=== PATIENT | male | born 1950 | race Caucasian/White ===

== ENCOUNTER 2021-07-31 16:36 | Inpatient (IN) ==
[2021-07-31] MEDS ORDERED: SODIUM CHLORIDE 0.9% 1000ML 1,000 ML IV SCH ×2 (18:30→20:15)
[2021-07-31 18:34] LABS: Hematocrit (blood only) 32.5 % (42-52); Hemoglobin 9.5 g/dL (14.0-18.0); Mean Corpuscular Hemoglobin 26.2 pg (25-34); Mean Corpuscular Hgb Conc 29.2 g/dL (32-36); Mean Corpuscular Volume 89.8 fL (80-100); Mean Platelet Volume 10.6 fL (7.4-10.4); Platelet Count 373 K/uL (130-400); RDW Coefficient of Variation 16.4 % (11.5-14.5); RDW Standard Deviation 54.8 fL (36.4-46.3); Red Blood Count 3.62 M/uL (4.7-6.1); White Blood Count 18.81 K/uL (4.8-10.8)
[2021-07-31 18:41] LABS: Alanine Aminotransferase 9 U/L (12-78); Albumin Level 1.8 gm/dl (3.4-5.0); Aspartate Aminotransferase 13 U/L (15-37); BUN Creatinine Ratio 17.4 (10-20); Blood Urea Nitrogen 15 mg/dl (7-18); Calcium 9.3 mg/dl (8.5-10.1); Carbon Dioxide 33 mmol/L (21-32); Chloride 100 mmol/L (98-107); Est GFR (Non-African American) 88.9 ml/min; Glucose 172 mg/dl (70-99); Magnesium 2.4 mg/dl (1.8-2.4); Sodium 136 mmol/L (136-145)
[2021-07-31] MEDS ORDERED: VANCOMYCIN CONSULT ACTIVE PRN (18:42)
[2021-07-31] MEDS ORDERED: VANCOMYCIN HCL 2,750 MG in SODIUM CHLORIDE 0.9% 500 ML IV ONE (18:42)
[2021-07-31 18:44] LABS: INR 1.2 (0.9-1.1); Partial Thromboplastin Ratio 1.3; Partial Thromboplastin Time 34.3 Seconds (21.0-31.0); Prothrombin Time 11.7 Seconds (9.0-12.0)
[2021-07-31 18:46] LABS: Albumin Globulin Ratio 0.3 (0.9-2); Alkaline Phosphatase 92 U/L (45-117); Bilirubin,Total 0.2 mg/dl (0.2-1); Globulin 5.4 gm/dl (2.5-4.0); Total Protein 7.2 gm/dl (6.4-8.2); Troponin I < 0.015 ng/ml (0-0.045)
[2021-07-31 18:52] LABS: iSTAT Creatinine 0.9 mg/dl (0.6-1.3); iSTAT Hemoglobin 10.9 g/dl (14.0-18.0); iSTAT Ionized Calcium 1.28 mmol/l (1.12-1.32); iSTAT Potassium 4.1 mmol/L (3.3-5.0)
[2021-07-31 18:54] LABS: Basophils # (auto) 0.01 K/uL (0-0.2); Basophils % (auto) 0.1 %; Eosinophils # (auto) 0.06 K/uL (0-0.5); Eosinophils % (auto) 0.3 %; Immature Granulocytes % (auto) 0.5 %; Lymphocytes # (auto) 0.97 K/uL (1.2-3.4); Lymphocytes % (auto) 5.2 %; Monocytes # (auto) 1.08 K/uL (0.11-0.59); Monocytes % (auto) 5.7 %; Neutrophils # (auto) 16.59 K/uL (1.4-6.5); Neutrophils % (auto) 88.2 %
[2021-07-31] MEDS ORDERED: OPTIRAY 320 125ml IV ONE (19:28)
--- NOTE | 2021-07-31 19:49 | CT Scan Report ---
CT SCAN OF THE ABDOMEN AND PELVIS WITH IV CONTRAST CLINICAL HISTORY: Right back/flank pain. Cellulitis/infection. Clinical concern for abscess or fasc iitis. COMPARISON STUDY: No priors. TECHNIQUE: Following the IV administration of 118 cc of Optiray 320, CT scan of the abdomen and pelv is is performed from the lung bases to the proximal femora. Images are reviewed in the axial, sagitta l, and coronal planes. IV contrast was administered without complication. A dose lowering technique w as utilized adhering to the principles of ALARA. The examination is degraded by large body habitus, a nd by streak artifact from the body wall abutting the CT gantry. There is also motion artifact. CT DOSE: 1874.37 mGy.cm FINDINGS: Lung bases: The heart is top normal in size noting a small to moderate pericardial effusion. The carmen nary arteries are densely calcified. There are small pleural effusions with dense bibasilar consolida tion. A tiny hiatal hernia is noted. Liver: The contrast-enhanced liver is normal in size, contour, and attenuation. There is no intrahepa tic biliary ductal dilatation. The hepatic veins and portal veins are patent. Gallbladder: The gallbladder is distended but otherwise normal as imaged. Spleen: Normal in size and attenuation. Pancreas: The pancreas is moderately atrophic. There is mild nonspecific infiltration around the panc reatic tail. The gland enhances homogeneously. Adrenal glands: Unremarkable. Kidneys: The contrast enhanced kidneys are normal in size there is moderate to severe right-sided hyd ronephrosis. The right ureter is normal in caliber, with no obstructing stone or lesion identified. T here are numerous clusters of nonobstructing right renal calculi. The largest measures 1.5 cm. Nonobs tructing calculi are also seen in the left kidney. There is no left-sided hydronephrosis. The kidneys enhance symmetrically. There are least 2 cysts in the lower pole of left kidney measuring up to 3 cm . Foci of cortical scarring are noted in the left kidney. Abdominal vasculature: The abdominal aorta is normal in course and caliber noting moderate atheroscle rotic calcification. Bowel: There is mild colonic diverticulosis without CT evidence of acute diverticulitis. No bowel obs truction is seen. Mild fecal retention is noted throughout the colon. The appendix is well-visualize d and normal. Peritoneum: There is no intraperitoneal free air or abdominal ascites. There is a large fat-containin g umbilical hernia. Lymphadenopathy: None. Pelvic viscera: The prostate gland is diminutive and heterogeneous. The bladder wall appears thickene d and trabeculated suggesting chronic outlet obstruction. There are bilateral fat-containing inguinal hernias. Skeletal structures: The skeletal structures are osteopenic. Mild to moderate lumbosacral spondylosis is observed. No lytic or blastic lesions are seen. Soft tissues: There is significant infiltration of the subcutaneous soft tissues in the right lower b ack seen from T9-T10 through L1. There is a large gas and fluid containing collection just deep to th e dermal surface at this site which measures approximately 10 x 3 x 10 cm as seen on image #100. This is centered at the level of T11-T12. There is no intraperitoneal or paraspinous extension of this co llection. There is infiltration of the surrounding soft tissues consistent with cellulitis. No soft t issue gas is seen outside of the collection. There is generalized fatty atrophy of the regional muscu lature. Gynecomastia is noted. IMPRESSION: 1. Streak and motion compromised examination 2. There is an approximately 10 x 3 x 10 cm gas and fluid containing collection just deep to the derm al surface within the subcutaneous soft tissues of the right lower back as detailed above. This is ty pical for abscess and there is evidence of surrounding cellulitis. 3. There is no soft tissue gas identified outside of the collection. 4. There are small pleural effusions with dependent consolidation. This likely represents atelectasis . Correlate clinically for evidence of superimposed pneumonia. 5. There is moderate to severe right-sided hydronephrosis. No stone or obstructing lesion is identifi ed and this may represent a UPJ type obstruction. Correlate with clinical findings and any prior outs nora imaging studies. 6. Bilateral nephrolithiasis. 7. There is mild nonspecific infiltration identified around the pancreatic tail. Correlate with clini doretha findings and serum amylase/lipase levels for evidence of acute pancreatitis. 8. Additional findings as above. ACT 112: Negative or not required by law. Electronically signed by: Flaco Batres M.D. 07/31/2021 7:48 PM
--- NOTE | 2021-07-31 19:58 | XRay Report ---
SINGLE VIEW CHEST CLINICAL HISTORY: Sepsis. Abscess of the lower back. FINDINGS: 2 AP, portable, semierect chest radiographs are obtained. No prior studies are available fo r comparison at the time of dictation. The examination is degraded by portable technique, apical lord otic positioning, and patient rotation the heart is enlarged noting atherosclerotic calcification of the thoracic aorta. The pulmonary vasculature is noncongested. There are small pleural effusions with bibasilar consolidation. No pneumothorax is seen. The skeletal structures are osteopenic. The bony t horax is grossly intact. IMPRESSION: 1. Cardiomegaly without radiographic evidence of congestive failure. 2. Small pleural effusions with bibasilar consolidation. This likely represents atelectasis and clini doretha correlation will be required. ACT 112: Negative or not required by law. Electronically signed by: Flaco Batres M.D. 07/31/2021 7:57 PM
[2021-07-31 20:54] LABS: Appearance Urine Cloudy (Clear); Bacteria Urine Automated Negative (Negative); Bilirubin Urine Negative (Negative); Blood Urine Trace (Negative); Color Urine Yellow; Epithelial Cell Urine Auto >30 /lpf (0-5); Glucose Urine UA Negative (Negative); Ketones Urine Negative (Negative); Leukocyte Esterase Urine Negative (Negative); Nitrite Urine Negative (Negative); Protein Urine Negative (Negative); Specific Gravity Urine > 1.045 (1.000-1.030); Urobilinogen Urine Negative (Negative)
--- NOTE | 2021-07-31 21:01 | Emergency Department Note ---
History of Present Illness General Chief complaint: Skin Problem Time Seen by Provider: 07/31/21 18:12 Source: RN notes reviewed Limitations: altered mental status (Patient has dementia) History of Present Illness Provider Complaint: + abscess/boil Onset (ago): 3 day(s) Location: + back Severity: moderate Maximum Pain Intensity: 7 Home Medications Medication Instructions Recorded Confirmed Type Lactobacillus Probiotic 1 tab PO QAM 07/31/21 07/31/21 History acetaminophen 325 mg tablet 650 mg PO Q4 PRN MDD 3g 07/31/21 07/31/21 History acetazolamide 500 mg 500 mg PO DAILY 07/31/21 07/31/21 History capsule,extended release albuterol sulfate 90 mcg/actuation 1 puff INHALATION Q4 PRN 07/31/21 07/31/21 History aerosol inhaler aspirin 81 mg chewable tablet 81 mg PO DAILY 07/31/21 07/31/21 History atorvastatin 40 mg tablet 40 mg PO HS 07/31/21 07/31/21 History cholecalciferol (vitamin D3) 25 25 mcg PO DAILY 07/31/21 07/31/21 History mcg (1,000 unit) tablet divalproex 250 mg tablet,delayed 250 mg PO BID 07/31/21 07/31/21 History release donepezil 5 mg tablet (Aricept) 5 mg PO DAILY 07/31/21 07/31/21 History guaifenesin 600 mg tablet, 600 mg PO Q12H 07/31/21 07/31/21 History extended release 12 hr insulin glargine 100 unit/mL (3 35 unit SUBCUT HS 07/31/21 07/31/21 History mL) subcutaneous pen (Lantus Solostar U-100 Insulin) insulin regular human 100 unit/mL 1 sliding scale dose SUBCUT ACHS 07/31/21 07/31/21 History injection solution (Humulin R Regular U-100 Insulin) ipratropium 18 mcg-albuterol 103 1 spray INHALATION QID 07/31/21 07/31/21 History mcg/actuation aerosol inhaler metoprolol tartrate 25 mg tablet 12.5 mg PO BID 07/31/21 07/31/21 History pediatric multivitamin 1 tab PO DAILY 07/31/21 07/31/21 History potassium chloride 20 mEq 20 meq PO WM 07/31/21 07/31/21 History tablet,extended release quetiapine 50 mg tablet (Seroquel) 50 mg PO HS 07/31/21 07/31/21 History sertraline 100 mg tablet 100 mg PO DAILY 07/31/21 07/31/21 History sulfamethoxazole 800 1 tab PO Q12H 07/31/21 07/31/21 History mg-trimethoprim 160 mg tablet (Bactrim DS) terazosin 2 mg capsule 2 mg PO DAILY 07/31/21 07/31/21 History theophylline 600 mg 600 mg PO DAILY 07/31/21 07/31/21 History tablet,extended release 24 hr Allergies Allergy/AdvReac Type Severity Reaction Status Date / Time ketorolac [From Toradol] Allergy Unknown Unknown Verified 07/31/21 17:53 Past Med/Surg History Medical History (Updated 07/31/21 @ 21:21 by Car Mitchell) Dementia Diabetes HLD (hyperlipidemia) HTN (hypertension) No pertinent family history Obstructive lung disease Surgical History (Updated 07/31/21 @ 21:00 by Car Mitchell) No pertinent past surgical history Social History Smoking Status: Former smoker Preferred Language: Micronesian Feels Safe at Home: Yes Review of Systems Unobtainable due to cognitive status (Due to dementia) Physical Exam Vital Signs: Vital Signs - 24 hr 07/31/21 16:24 07/31/21 16:56 07/31/21 17:00 Temperature 37.5 C Temperature Source Oral Pulse Rate 124 H 125 H 125 H Pulse Rate from Sp O2 Sensor 135 H 126 H Pulse Rhythm Regular Pulse Strength Normal Respiratory Rate 18 31 H 29 H Respiratory Effort / Characteristics Non-Labored Sponta neous Respiratory Depth Normal Respiratory Patter n Regular Blood Pressure 120/85 139/83 144/81 H Blood Pressure Margot n 96 101 102 Blood Pressure Pos ition Lying Pulse Oximetry 97 95 96 Oxygen Delivery Me thod Nasal Cannula Oxygen Flow Rate 4 Sepsis Recent Feve r Within 48 Hours Yes Sepsis New/Unexpla ined Change in Men ruben Status No Sepsis Action Take n by Nursing No Action Required 07/31/21 17:30 07/31/21 18:30 07/31/21 19:01 Temperature Temperature Source Pulse Rate 129 H 134 H 139 H Pulse Rate from Sp O2 Sensor 129 H 136 H 139 H Pulse Rhythm Pulse Strength Respiratory Rate 21 21 17 Respiratory Effort / Characteristics Respiratory Depth Respiratory Patter n Blood Pressure 109/76 113/95 139/86 Blood Pressure Margot n 87 101 103 Blood Pressure Pos ition Pulse Oximetry 98 96 96 Oxygen Delivery Me thod Oxygen Flow Rate Sepsis Recent Feve r Within 48 Hours Sepsis New/Unexpla ined Change in Men ruben Status Sepsis Action Take n by Nursing 07/31/21 20:04 07/31/21 20:30 Temperature Temperature Source Pulse Rate 147 H 145 H Pulse Rate from Sp O2 Sensor 149 H Pulse Rhythm Pulse Strength Respiratory Rate 18 20 Respiratory Effort / Characteristics Respiratory Depth Respiratory Patter n Blood Pressure 169/83 H 144/109 H Blood Pressure Margot n 111 120 Blood Pressure Pos ition Pulse Oximetry 92 98 Oxygen Delivery Me thod Nasal Cannula Nasal Cannula Oxygen Flow Rate 2 3 Sepsis Recent Feve r Within 48 Hours Sepsis New/Unexpla ined Change in Men ruben Status Sepsis Action Take n by Nursing Physical Exam: Physical Exam HENT: Exam performed. - Head: Normocephalic and atraumatic. - Right Ear: External ear normal. No mastoid tenderness. - Left Ear: External ear normal. No mastoid tenderness. - Mouth/Throat: The oropharynx is clear and moist. No trismus in the jaw. No dental abscesses or uvula swelling. No oropharyngeal exudate or tonsillar a bscesses. EYES: Conjunctivae and EOM are normal. Pupils are equal, round, and reactive to light. Right eye exhibits no discharge. Left eye exhibits no discharge. No scleral icterus. NECK: Normal range of motion. Neck supple. No JVD present. CV: Tachycardic rate, regular rhythm, normal heart sounds and intact distal pulses. There is no peripheral edema. Palpable radial pulses bue. PULM/CHEST: Effort normal and breath sounds normal. No respiratory distress. No stridor. He has no wheezes. He has no rales. - Chest Wall: He exhibits no tenderness. ABD: The abdomen is soft and obese NEURO: Motor and sensation grossly intact. SKIN: Large approximately 8 x 8 cm fluctuant area over the right thoracolumbar area with surrounding erythema and drainage. drainage is purulent and brown. There is a black area of necrosis over the skin. Course Course 1811: The patient was evaluated in room B12. A complete history and physical exam was performed Cardiac monitoring: An order was placed for continuous cardiac monitoring. The monitor shows a rate of 140 with sinus tachycardia rhythm Sepsis protocols initiated. [facility] paperwork states that the patient is full code. There is concern for necrotizing fasciitis given the black area of necrosis. Will obtain CT imaging. Discussed with radiology Dr. Salas who states order CT of the abdomen to see the lesion on the back if there is soft tissue gas. 2010: Labs show leukocytosis of 18. CT imaging shows large abscess with no surrounding soft tissue gas. Patient will be treated with vancomycin for abscess. Abscess is actively draining. Discussed case with [facility] hospitalist Eric SAMPSON for Dr. Montes who agrees to admit the patient. Administered Medications Vancomycin HCl 2,750 mg/ (Sodium Chloride) 555 mls @ 200 mls/hr IV NOW ONE Stop: 07/31/21 21:28 Last Admin: 07/31/21 20:08 Dose: 200 mls/hr Documented by: [id number] Discontinued Medications Sodium Chloride (Nss 1000ml) 1,000 mls @ 999 mls/hr IV .[id number] JENNIFER Stop: 07/31/21 19:30 Last Admin: 07/31/21 20:06 Dose: 999 mls/hr Documented by: [id number] Ioversol (Optiray 320 125ml) 118 ml IV ONCE ONE Stop: 07/31/21 19:29 Last Admin: 07/31/21 19:28 Dose: 118 ml Documented by: [id number] Medical Decision Making Laboratory Data Result diagrams: 07/31/21 16:56 07/31/21 16:56 Lab Results 07/31/21 07/31/21 07/31/21 Range/Units 16:56 16:56 16:56 WBC 18.81 H (4.8-10.8) K/uL RBC 3.62 L (4.7-6.1) M/uL Hgb 9.5 L (14.0-18.0) g/dL POC Hgb (14.0-18.0) g/dl Hct 32.5 L (42-52) % POC Hct (42-52) % MCV 89.8 (80-100) fL MCH 26.2 (25-34) pg MCHC 29.2 L (32-36) g/dL RDW Std Deviation 54.8 H (36.4-46.3) fL RDW Coeff of Raquel 16.4 H (11.5-14.5) % Plt Count 373 (130-400) K/uL MPV 10.6 H (7.4-10.4) fL Immature Gran % (Auto) 0.5 % Neut % (Auto) 88.2 % Lymph % (Auto) 5.2 % Archer % (Auto) 5.7 % Eos % (Auto) 0.3 % Baso % (Auto) 0.1 % Neut # (Auto) 16.59 H (1.4-6.5) K/uL Lymph # (Auto) 0.97 L (1.2-3.4) K/uL Archer # (Auto) 1.08 H (0.11-0.59) K/uL Eos # (Auto) 0.06 (0-0.5) K/uL Baso # (Auto) 0.01 (0-0.2) K/uL Immature Gran # (Auto) 0.10 H (0.00-0.02) K/uL PT 11.7 (9.0-12.0) Seconds INR 1.2 H (0.9-1.1) APTT 34.3 H (21.0-31.0) Seconds PTT Ratio 1.3 POC Sodium (135-144) mmol/L Sodium 136 (136-145) mmol/L POC Potassium (3.3-5.0) mmol/L Potassium 4.0 (3.5-5.1) mmol/L POC Chloride (101-112) mmol/L Chloride 100 (98-107) mmol/L Carbon Dioxide 33 H (21-32) mmol/L POC Total CO2 (24-31) mmol/L Anion Gap 3.0 (3-11) POC Anion Gap (16-25) mmol/L POC BUN (7-18) mg/dl BUN 15 (7-18) mg/dl Creatinine 0.85 (0.6-1.4) mg/dl POC Creatinine (0.6-1.3) mg/dl Est Cr Clr Drug Dosing 121.0 ml/min Est GFR ( Amer) 103.0 ml/min Est GFR (Non-Af Amer) 88.9 ml/min BUN/Creatinine Ratio 17.4 (10-20) Glucose 172 H (70-99) mg/dl POC Glucose (70-99) mg/dl POC Glucose (other) (70-99) mg/dl Lactate (0.4-2.0) mmol/L Calcium 9.3 (8.5-10.1) mg/dl POC Ioniz Calcium Gurjit (1.12-1.32) mmol/l Magnesium 2.4 (1.8-2.4) mg/dl Total Bilirubin 0.2 (0.2-1) mg/dl AST 13 L (15-37) U/L ALT 9 L (12-78) U/L Alkaline Phosphatase 92 (45-117) U/L Troponin I < 0.015 (0-0.045) ng/ml Total Protein 7.2 (6.4-8.2) gm/dl Albumin 1.8 L (3.4-5.0) gm/dl Globulin 5.4 H (2.5-4.0) gm/dl Albumin/Globulin Ratio 0.3 L (0.9-2) Procalcitonin (0-0.5) ng/ml Urine Color Urine Appearance (Clear) Urine pH (4.5-7.5) Ur Specific [place] (1.000-1.030) Urine Protein (Negative) Urine Glucose (UA) (Negative) Urine Ketones (Negative) Urine Blood (Negative) Urine Nitrite (Negative) Urine Bilirubin (Negative) Urine Urobilinogen (Negative) Ur Leukocyte Esterase (Negative) 07/31/21 07/31/21 07/31/21 Range/Units 16:56 18:26 18:39 WBC (4.8-10.8) K/uL RBC (4.7-6.1) M/uL Hgb (14.0-18.0) g/dL POC Hgb 10.9 L (14.0-18.0) g/dl Hct (42-52) % POC Hct 32 L (42-52) % MCV (80-100) fL MCH (25-34) pg MCHC (32-36) g/dL RDW Std Deviation (36.4-46.3) fL RDW Coeff of Raquel (11.5-14.5) % Plt Count (130-400) K/uL MPV (7.4-10.4) fL Immature Gran % (Auto) % Neut % (Auto) % Lymph % (Auto) % Archer % (Auto) % Eos % (Auto) % Baso % (Auto) % Neut # (Auto) (1.4-6.5) K/uL Lymph # (Auto) (1.2-3.4) K/uL Archer # (Auto) (0.11-0.59) K/uL Eos # (Auto) (0-0.5) K/uL Baso # (Auto) (0-0.2) K/uL Immature Gran # (Auto) (0.00-0.02) K/uL PT (9.0-12.0) Seconds INR (0.9-1.1) APTT (21.0-31.0) Seconds PTT Ratio POC Sodium 137 (135-144) mmol/L Sodium (136-145) mmol/L POC Potassium 4.1 (3.3-5.0) mmol/L Potassium (3.5-5.1) mmol/L POC Chloride 95 L (101-112) mmol/L Chloride (98-107) mmol/L Carbon Dioxide (21-32) mmol/L POC Total CO2 31 (24-31) mmol/L Anion Gap (3-11) POC Anion Gap 16.0 (16-25) mmol/L POC BUN 13 (7-18) mg/dl BUN (7-18) mg/dl Creatinine (0.6-1.4) mg/dl POC Creatinine 0.9 (0.6-1.3) mg/dl Est Cr Clr Drug Dosing ml/min Est GFR ( Amer) ml/min Est GFR (Non-Af Amer) ml/min BUN/Creatinine Ratio (10-20) Glucose (70-99) mg/dl POC Glucose 185 H (70-99) mg/dl POC Glucose (other) 182 H (70-99) mg/dl Lactate (0.4-2.0) mmol/L Calcium (8.5-10.1) mg/dl POC Ioniz Calcium Gurjit 1.28 (1.12-1.32) mmol/l Magnesium (1.8-2.4) mg/dl Total Bilirubin (0.2-1) mg/dl AST (15-37) U/L ALT (12-78) U/L Alkaline Phosphatase (45-117) U/L Troponin I (0-0.045) ng/ml Total Protein (6.4-8.2) gm/dl Albumin (3.4-5.0) gm/dl Globulin (2.5-4.0) gm/dl Albumin/Globulin Ratio (0.9-2) Procalcitonin 0.40 (0-0.5) ng/ml Urine Color Urine Appearance (Clear) Urine pH (4.5-7.5) Ur Specific [place] (1.000-1.030) Urine Protein (Negative) Urine Glucose (UA) (Negative) Urine Ketones (Negative) Urine Blood (Negative) Urine Nitrite (Negative) Urine Bilirubin (Negative) Urine Urobilinogen (Negative) Ur Leukocyte Esterase (Negative) 07/31/21 07/31/21 Range/Units 19:50 20:38 WBC (4.8-10.8) K/uL RBC (4.7-6.1) M/uL Hgb (14.0-18.0) g/dL POC Hgb (14.0-18.0) g/dl Hct (42-52) % POC Hct (42-52) % MCV (80-100) fL MCH (25-34) pg MCHC (32-36) g/dL RDW Std Deviation (36.4-46.3) fL RDW Coeff of Raquel (11.5-14.5) % Plt Count (130-400) K/uL MPV (7.4-10.4) fL Immature Gran % (Auto) % Neut % (Auto) % Lymph % (Auto) % Archer % (Auto) % Eos % (Auto) % Baso % (Auto) % Neut # (Auto) (1.4-6.5) K/uL Lymph # (Auto) (1.2-3.4) K/uL Archer # (Auto) (0.11-0.59) K/uL Eos # (Auto) (0-0.5) K/uL Baso # (Auto) (0-0.2) K/uL Immature Gran # (Auto) (0.00-0.02) K/uL PT (9.0-12.0) Seconds INR (0.9-1.1) APTT (21.0-31.0) Seconds PTT Ratio POC Sodium (135-144) mmol/L Sodium (136-145) mmol/L POC Potassium (3.3-5.0) mmol/L Potassium (3.5-5.1) mmol/L POC Chloride (101-112) mmol/L Chloride (98-107) mmol/L Carbon Dioxide (21-32) mmol/L POC Total CO2 (24-31) mmol/L Anion Gap (3-11) POC Anion Gap (16-25) mmol/L POC BUN (7-18) mg/dl BUN (7-18) mg/dl Creatinine (0.6-1.4) mg/dl POC Creatinine (0.6-1.3) mg/dl Est Cr Clr Drug Dosing ml/min Est GFR ( Amer) ml/min Est GFR (Non-Af Amer) ml/min BUN/Creatinine Ratio (10-20) Glucose (70-99) mg/dl POC Glucose (70-99) mg/dl POC Glucose (other) (70-99) mg/dl Lactate 1.0 (0.4-2.0) mmol/L Calcium (8.5-10.1) mg/dl POC Ioniz Calcium Gurjit (1.12-1.32) mmol/l Magnesium (1.8-2.4) mg/dl Total Bilirubin (0.2-1) mg/dl AST (15-37) U/L ALT (12-78) U/L Alkaline Phosphatase (45-117) U/L Troponin I (0-0.045) ng/ml Total Protein (6.4-8.2) gm/dl Albumin (3.4-5.0) gm/dl Globulin (2.5-4.0) gm/dl Albumin/Globulin Ratio (0.9-2) Procalcitonin (0-0.5) ng/ml Urine Color Yellow Urine Appearance Cloudy A (Clear) Urine pH 6.0 (4.5-7.5) Ur Specific [place] > 1.045 H (1.000-1.030) Urine Protein Negative (Negative) Urine Glucose (UA) Negative (Negative) Urine Ketones Negative (Negative) Urine Blood Trace H (Negative) Urine Nitrite Negative (Negative) Urine Bilirubin Negative (Negative) Urine Urobilinogen Negative (Negative) Ur Leukocyte Esterase Negative (Negative) [facility] Narrative 181: The patient was evaluated in room B12. A complete history and physical exam was performed Cardiac monitoring: An order was placed for continuous cardiac monitoring. The monitor shows a rate of 140 with sinus tachycardia rhythm Sepsis protocols initiated. [facility] paperwork states that the patient is full code. There is concern for necrotizing fasciitis given the black area of necrosis. Will obtain CT imaging. Discussed with radiology Dr. Salas who states order CT of the abdomen to see the lesion on the back if there is soft tissue gas. 2010: Labs show leukocytosis of 18. CT imaging shows large abscess with no surrounding soft tissue gas. Patient will be treated with vancomycin for abscess. Abscess is actively draining. Discussed case with [facility] hospitalist Eric SAMPSON for Dr. Montes who agrees to admit the patient. Impression & Plan Abscess Discharge Plan Visit Data Chief Complaint: Skin Problem Discharge Problem: Abscess Patient Disposition: Admitted As Inpatient Forms Stand Alone Forms: My [facility] Prescriptions Prescriptions: No Action atorvastatin 40 mg Tablet 40 mg PO HS RF: 0 donepezil [Aricept] 5 mg Tablet 5 mg PO DAILY RF: 0 divalproex 250 mg Tablet,Delayed Release (Dr/Ec) 250 mg PO BID RF: 0 aspirin 81 mg Tablet,Chewable 81 mg PO DAILY RF: 0 Combivent 18-103 mcg/actuation Aerosol 1 spray INHALATION QID RF: 0 cholecalciferol (vitamin D3) 25 mcg (1,000 unit) Tablet 25 mcg PO DAILY RF: 0 acetazolamide [Diamox Sequels] 500 mg Capsule, Extended Release 500 mg PO DAILY RF: 0 sertraline 100 mg Tablet 100 mg PO DAILY RF: 0 terazosin 2 mg Capsule 2 mg PO DAILY RF: 0 quetiapine [Seroquel] 50 mg Tablet 50 mg PO HS RF: 0 guaifenesin 600 mg Tablet Extended Release 12hr 600 mg PO Q12H RF: 0 Lactobacillus Probiotic 1 tab PO QAM RF: 0 pediatric multivitamin Tablet,Chewable 1 tab PO DAILY RF: 0 Lantus Solostar U-100 Insulin 100 unit/mL (3 mL) Insulin Pen 35 unit SUBCUT HS RF: 0 potassium chloride 20 mEq Tablet Extended Release 20 meq PO WM RF: 0 sulfamethoxazole-trimethoprim [Bactrim DS] 800-160 mg Tablet 1 tab PO Q12H RF: 0 theophylline 600 mg Tablet Extended Release 24 Hr 600 mg PO DAILY RF: 0 metoprolol tartrate 25 mg Tablet 12.5 mg PO BID RF: 0 acetaminophen 325 mg Tablet 650 mg PO Q4 MDD 3g PRN (Reason: Fever Or Pain) RF: 0 albuterol sulfate 90 mcg/actuation Hfa Aerosol Inhaler 1 puff INHALATION Q4 PRN (Reason: Shortness Of Breath) RF: 0 Humulin R Regular U-100 Insuln 100 unit/mL Solution 1 sliding scale dose SUBCUT ACHS RF: 0 Referrals Referrals: Mera Tamayo [Primary Care Provider] -
[2021-07-31 21:08] LABS: Calcium Oxalate Crystals Urine Present (None Prsent); RBC Urine Automated 0-4 /hpf (0-4)
[2021-07-31] MEDS ORDERED: LACTATED RINGER'S 1,000 ML IV SCH (21:15)
--- NOTE | 2021-07-31 21:24 | History & Physical Report ---
Date of Service July 31, 2021 Assessment & Plan (1) Abscess: Plan: Large abscess- drained at bedside by GS- Thank you for your assistance - Wound culture pending - BID wet to dry dressing - Continue Vancomycin - pharmacy to dose - Rocephin 2gm IV now and then daily (2) Sepsis: Plan: SIRS 2, Qsofa-2 - WBC 18- NLR16:1 - Lacate <2 - PCT .04 - Goal MAPS >65 - Bolus 500ml now LR - Continue LR at 100 ml/hr x1 liter - source controlled- appreciate surgery assistance - elevated INR (3) HLD (hyperlipidemia): Plan: Atorvastatin 40mg daily (4) Seizure: Plan: Continue with Depakote (5) Obstructive lung disease: Plan: Past smoker quit in 2011 per - Continue albuterol - Continue Theophylline- juni level pending (6) HTN (hypertension): Plan: Continue metoprolol as long as remains normotensive (7) Diabetes: Plan: Continue Lantus - Aspart sliding scale- CF 20, ratio 1:9 (8) Dementia: Plan: Cotninue with aricept (9) Renal stones: Plan: Oxalate stone in urine- noted on CT scan- numerous - noted with right sided hydronephrosis- with possible UPJ obstruction- Urology consulted - no other images available for comparison (10) Abnormal CT scan: Plan: Mild non-specific infiltration around pancreatic tail - lipase pending - no abdominal pain or other symptoms consistent with acute pancreatitis - follow clinically - continue crystalloid with sepsis History of Present Illness Primary Care Provider: [facility] 61 YOM with past medical history of: CHF, COPD, past smoker, Encephalopathy, DM II (on insulin), depression. Patient is a resident at [facility] for the past ~2 months following a COPD exacerbation and pneumonia where he is going through rehab. The patient was brought in today for originally having a "a cyst" on his back for past couple days that burst open on per the . This then became more painful and she started to notice it becoming more foul smelling yesterday. It appears that he may have been on Bactrim for that time frame. In the EMD the patient has been tachycardic >120 with his BP 120-160. He is noted to have elevated WBC count and normal lactate and PCT. The patient had CT scan done of his abdomen and pelvis that reveals a 10x3x3 abscess collection just deep too the dermal surface, this is notable for large gas and fluid in the collection. There is no gas in the surrounding tissues and surrounding cellulitis. The patient had blood cultures and UA performed. The patient was started on Vancomycin in the EMD. Will also add Rocephin 2GM IV daily, first dose. General Surgery was notified by hospitalist service, the abscess was drained at the bedside (see Dr. Mcknight's procedure note), large amount of brown purulence drained, wound culture obtained, irrigated and packed. Patient will be admitted to the floor for continued sepsis care, and follow organ perfusion. Patient has had his COVID vaccine and his COVID test is: NEGATIVE Allergies Allergy/AdvReac Type Severity Reaction Status Date / Time ketorolac [From Toradol] Allergy Unknown Unknown Verified 07/31/21 17:53 Home Medications Medication Instructions Recorded Confirmed Type Lactobacillus Probiotic 1 tab PO QAM 07/31/21 07/31/21 History acetaminophen 325 mg tablet 650 mg PO Q4 PRN MDD 3g 07/31/21 07/31/21 History acetazolamide 500 mg 500 mg PO DAILY 07/31/21 07/31/21 History capsule,extended release albuterol sulfate 90 mcg/actuation 1 puff INHALATION Q4 PRN 07/31/21 07/31/21 History aerosol inhaler aspirin 81 mg chewable tablet 81 mg PO DAILY 07/31/21 07/31/21 History atorvastatin 40 mg tablet 40 mg PO HS 07/31/21 07/31/21 History cholecalciferol (vitamin D3) 25 25 mcg PO DAILY 07/31/21 07/31/21 History mcg (1,000 unit) tablet divalproex 250 mg tablet,delayed 250 mg PO BID 07/31/21 07/31/21 History release donepezil 5 mg tablet (Aricept) 5 mg PO DAILY 07/31/21 07/31/21 History guaifenesin 600 mg tablet, 600 mg PO Q12H 07/31/21 07/31/21 History extended release 12 hr insulin glargine 100 unit/mL (3 35 unit SUBCUT HS 07/31/21 07/31/21 History mL) subcutaneous pen (Lantus Solostar U-100 Insulin) insulin regular human 100 unit/mL 1 sliding scale dose SUBCUT ACHS 07/31/21 07/31/21 History injection solution (Humulin R Regular U-100 Insulin) ipratropium 18 mcg-albuterol 103 1 spray INHALATION QID 07/31/21 07/31/21 History mcg/actuation aerosol inhaler metoprolol tartrate 25 mg tablet 12.5 mg PO BID 07/31/21 07/31/21 History pediatric multivitamin 1 tab PO DAILY 07/31/21 07/31/21 History potassium chloride 20 mEq 20 meq PO WM 07/31/21 07/31/21 History tablet,extended release quetiapine 50 mg tablet (Seroquel) 50 mg PO HS 07/31/21 07/31/21 History sertraline 100 mg tablet 100 mg PO DAILY 07/31/21 07/31/21 History sulfamethoxazole 800 1 tab PO Q12H 07/31/21 07/31/21 History mg-trimethoprim 160 mg tablet (Bactrim DS) terazosin 2 mg capsule 2 mg PO DAILY 07/31/21 07/31/21 History theophylline 600 mg 600 mg PO DAILY 07/31/21 07/31/21 History tablet,extended release 24 hr Past Med/Surg History Medical History CHF (congestive heart failure) Dementia Diabetes HLD (hyperlipidemia) HTN (hypertension) Hydronephrosis of right kidney No pertinent family history Obesity Obstructive lung disease Smoker Surgical History No pertinent past surgical history Social History Smoking Status: Never smoker Hx Alcohol Use: No Hx Substance Use: No Preferred Language: [place] Communication Ability: Impaired 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 Beliefs That Will Affect Care: None marital status: Current Living Situation: Spouse How many Children do You have: 2 Other Information That Helps Us Care for You: No Feels Safe at Home: Yes Safety Concerns: Feels Safe At This Time Assistive Devices: BiPap and Oxygen - Continuous Review of Systems Review of Systems: REVIEW OF SYSTEMS: Constitutional: No fever, sweats or chills Eyes: No diplopia, no worsening or blurred vision ENT: normal hearing, no trouble swallowing Respiratory: No cough, sputum, dyspnea at rest or on exertion Cardiovascular: No chest pain, tightness or palpitations Abdomen: No pain, nausea, vomiting, diarrhea or constipation Musculoskeletal: No joint pain, calf pain, swelling Neurologic: No weakness, numbness/tingling, or balance problems Psychiatric: No anxiety or depression Skin: (+) back, skin pain and erythema Physical Exam Physical Exam: PHYSICAL EXAM: General: awake, alert, no apparent distress Head: Normocephalic, atraumatic ENT: PERRL, EOMI, no pharyngeal exudate, mucous membranes moist Neuro: AAO x 3, speech clear and appropriate, strength intact bilaterally 5/5, sensation intact and equal all extremities and dermatomes, no pronator drift Chest: equal rise and fall of the chest, no accessory muscle use, no heaves or thrills, decreased in the bases with fine crackles, on 2lNC, Cardiac: Regular rate and rhythm, telemetry reviewed-Sinus tach, skin warm dry, cap refill <3 seconds, peripheral pulses +2 no JVD, no murmur, no edema GI: NABS x 4 quadrants, soft, nontender to palpation, no rebound, guarding or tenderness : Spontaneously voiding, no pain, no CVA tenderness, Valerio placed Extremities: Normal inspection, no peripheral edema or erythema, calfs nontender to palpation Psych: Normal mood and affect Skin: Cellulitis, palpable abscess, with center necrosis and draining yellow/brown pus. Results & Data Results & Data ([facility]) Vital Signs (Past 12 Hours) Vital Signs Temp Pulse Resp BP Pulse Ox 07/31/21 20:30 145 H 20 144/109 H 98 07/31/21 20:04 147 H 18 169/83 H 92 07/31/21 19:01 139 H 17 139/86 96 07/31/21 18:30 134 H 21 113/95 96 07/31/21 17:30 129 H 21 109/76 98 07/31/21 17:00 125 H 29 H 144/81 H 96 07/31/21 16:56 125 H 31 H 139/83 95 07/31/21 16:24 37.5 C 124 H 18 120/85 97 Laboratory Results Abnormal lab results 07/31/21 07/31/21 07/31/21 Range/Units 16:56 16:56 16:56 WBC 18.81 H (4.8-10.8) K/uL RBC 3.62 L (4.7-6.1) M/uL Hgb 9.5 L (14.0-18.0) g/dL POC Hgb (14.0-18.0) g/dl Hct 32.5 L (42-52) % POC Hct (42-52) % MCHC 29.2 L (32-36) g/dL RDW Std Deviation 54.8 H (36.4-46.3) fL RDW Coeff of Raquel 16.4 H (11.5-14.5) % MPV 10.6 H (7.4-10.4) fL Neut # (Auto) 16.59 H (1.4-6.5) K/uL Lymph # (Auto) 0.97 L (1.2-3.4) K/uL [place] # (Auto) 1.08 H (0.11-0.59) K/uL Immature Gran # (Auto) 0.10 H (0.00-0.02) K/uL INR 1.2 H (0.9-1.1) APTT 34.3 H (21.0-31.0) Seconds POC Chloride (101-112) mmol/L Carbon Dioxide 33 H (21-32) mmol/L Glucose 172 H (70-99) mg/dl POC Glucose (70-99) mg/dl POC Glucose (other) (70-99) mg/dl AST 13 L (15-37) U/L ALT 9 L (12-78) U/L Albumin 1.8 L (3.4-5.0) gm/dl Globulin 5.4 H (2.5-4.0) gm/dl Albumin/Globulin Ratio 0.3 L (0.9-2) Urine Appearance (Clear) Ur Specific [place] (1.000-1.030) Urine Blood (Negative) U Epithel Cells (Auto) (0-5) /lpf Urine Crystals (None Prsent) Calcium Oxalate Crystal (None Prsent) 07/31/21 07/31/21 07/31/21 Range/Units 18:26 18:39 20:38 WBC (4.8-10.8) K/uL RBC (4.7-6.1) M/uL Hgb (14.0-18.0) g/dL POC Hgb 10.9 L (14.0-18.0) g/dl Hct (42-52) % POC Hct 32 L (42-52) % MCHC (32-36) g/dL RDW Std Deviation (36.4-46.3) fL RDW Coeff of Raquel (11.5-14.5) % MPV (7.4-10.4) fL Neut # (Auto) (1.4-6.5) K/uL Lymph # (Auto) (1.2-3.4) K/uL [place] # (Auto) (0.11-0.59) K/uL Immature Gran # (Auto) (0.00-0.02) K/uL INR (0.9-1.1) APTT (21.0-31.0) Seconds POC Chloride 95 L (101-112) mmol/L Carbon Dioxide (21-32) mmol/L Glucose (70-99) mg/dl POC Glucose 185 H (70-99) mg/dl POC Glucose (other) 182 H (70-99) mg/dl AST (15-37) U/L ALT (12-78) U/L Albumin (3.4-5.0) gm/dl Globulin (2.5-4.0) gm/dl Albumin/Globulin Ratio (0.9-2) Urine Appearance Cloudy A (Clear) Ur Specific [place] > 1.045 H (1.000-1.030) Urine Blood Trace H (Negative) U Epithel Cells (Auto) >30 H (0-5) /lpf Urine Crystals Calcium Oxalate A (None Prsent) Calcium Oxalate Crystal Present A (None Prsent) Diagnostic Findings Chest X-Ray 07/31/21 18:20 SINGLE VIEW CHEST CLINICAL HISTORY: Sepsis. Abscess of the lower back. FINDINGS: 2 AP, portable, semierect chest radiographs are obtained. No prior studies are available for comparison at the time of dictation. The examination is degraded by portable technique, apical lordotic positioning, and patient rotation the heart is enlarged noting atherosclerotic calcification of the thoracic aorta. The pulmonary vasculature is noncongested. There are small pleural effusions with bibasilar consolidation. No pneumothorax is seen. The skeletal structures are osteopenic. The bony thorax is grossly intact. IMPRESSION: 1. Cardiomegaly without radiographic evidence of congestive failure. 2. Small pleural effusions with bibasilar consolidation. This likely represents atelectasis and clinical correlation will be required. ACT 112: Negative or not required by law. Electronically signed by: Flaco Batres M.D. 07/31/2021 7:57 PM Abdomen/Pelvis CT 07/31/21 18:41 CT SCAN OF THE ABDOMEN AND PELVIS WITH IV CONTRAST CLINICAL HISTORY: Right back/flank pain. Cellulitis/infection. Clinical concern for abscess or fasciitis. COMPARISON STUDY: No priors. TECHNIQUE: Following the IV administration of 118 cc of Optiray 320, CT scan of the abdomen and pelvis is performed from the lung bases to the proximal femora. Images are reviewed in the axial, sagittal, and coronal planes. IV contrast was administered without complication. A dose lowering technique was utilized adhering to the principles of ALARA. The examination is degraded by large body habitus, and by streak artifact from the body wall abutting the CT gantry. There is also motion artifact. CT DOSE: 1874.37 mGy.cm FINDINGS: Lung bases: The heart is top normal in size noting a small to moderate pericardial effusion. The coronary arteries are densely calcified. There are small pleural effusions with dense bibasilar consolidation. A tiny hiatal hernia is noted. Liver: The contrast-enhanced liver is normal in size, contour, and attenuation. There is no intrahepatic biliary ductal dilatation. The hepatic veins and portal veins are patent. Gallbladder: The gallbladder is distended but otherwise normal as imaged. Spleen: Normal in size and attenuation. Pancreas: The pancreas is moderately atrophic. There is mild nonspecific infiltration around the pancreatic tail. The gland enhances homogeneously. Adrenal glands: Unremarkable. Kidneys: The contrast enhanced kidneys are normal in size there is moderate to severe right-sided hydronephrosis. The right ureter is normal in caliber, with no obstructing stone or lesion identified. There are numerous clusters of nonobstructing right renal calculi. The largest measures 1.5 cm. Nonobstructing calculi are also seen in the left kidney. There is no left-sided hydronephrosis. The kidneys enhance symmetrically. There are least 2 cysts in the lower pole of left kidney measuring up to 3 cm. Foci of cortical scarring are noted in the left kidney. Abdominal vasculature: The abdominal aorta is normal in course and caliber noting moderate atherosclerotic calcification. Bowel: There is mild colonic diverticulosis without CT evidence of acute diverticulitis. No bowel obstruction is seen. Mild fecal retention is noted throughout the colon. The appendix is well-visualized and normal. Peritoneum: There is no intraperitoneal free air or abdominal ascites. There is a large fat-containing umbilical hernia. Lymphadenopathy: None. Pelvic viscera: The prostate gland is diminutive and heterogeneous. The bladder wall appears thickened and trabeculated suggesting chronic outlet obstruction. There are bilateral fat-containing inguinal hernias. Skeletal structures: The skeletal structures are osteopenic. Mild to moderate lumbosacral spondylosis is observed. No lytic or blastic lesions are seen. Soft tissues: There is significant infiltration of the subcutaneous soft tissues in the right lower back seen from T9-T10 through L1. There is a large gas and fluid containing collection just deep to the dermal surface at this site which measures approximately 10 x 3 x 10 cm as seen on image #100. This is centered at the level of T11-T12. There is no intraperitoneal or paraspinous extension of this collection. There is infiltration of the surrounding soft tissues consistent with cellulitis. No soft tissue gas is seen outside of the collection. There is generalized fatty atrophy of the regional musculature. Gynecomastia is noted. IMPRESSION: 1. Streak and motion compromised examination 2. There is an approximately 10 x 3 x 10 cm gas and fluid containing collection just deep to the dermal surface within the subcutaneous soft tissues of the right lower back as detailed above. This is typical for abscess and there is evidence of surrounding cellulitis. 3. There is no soft tissue gas identified outside of the collection. 4. There are small pleural effusions with dependent consolidation. This likely represents atelectasis. Correlate clinically for evidence of superimposed pneumonia. 5. There is moderate to severe right-sided hydronephrosis. No stone or obstructing lesion is identified and this may represent a UPJ type obstruction. Correlate with clinical findings and any prior outside imaging studies. 6. Bilateral nephrolithiasis. 7. There is mild nonspecific infiltration identified around the pancreatic tail. Correlate with clinical findings and serum amylase/lipase levels for evidence of acute pancreatitis. 8. Additional findings as above. ACT 112: Negative or not required by law. Electronically signed by: Flaco Batres M.D. 07/31/2021 7:48 PM Medications Administered Discontinued Medications Sodium Chloride (Nss 1000ml) 1,000 mls @ 999 mls/hr IV .Q1H1M [facility] Stop: 07/31/21 19:30 Last Infusion: 07/31/21 21:57 Dose: 0 mls/hr Documented by: [id number] Admin: 07/31/21 20:06 Dose: 999 mls/hr Documented by: [id number] Vancomycin HCl 2,750 mg/ (Sodium Chloride) 555 mls @ 200 mls/hr IV NOW ONE Stop: 07/31/21 21:28 Last Admin: 07/31/21 20:08 Dose: 200 mls/hr Documented by: [id number] Ioversol (Optiray 320 125ml) 118 ml IV ONCE ONE Stop: 07/31/21 19:29 Last Admin: 07/31/21 19:28 Dose: 118 ml Documented by: [id number] Discontinued Medications Sodium Chloride (Nss 1000ml) 1,000 mls @ 999 mls/hr IV .Q1H1M [facility] Stop: 07/31/21 19:30 Last Infusion: 07/31/21 21:57 Dose: 0 mls/hr Documented by: [id number] Admin: 07/31/21 20:06 Dose: 999 mls/hr Documented by: [id number] Vancomycin HCl 2,750 mg/ (Sodium Chloride) 555 mls @ 200 mls/hr IV NOW ONE Stop: 07/31/21 21:28 Last Admin: 07/31/21 20:08 Dose: 200 mls/hr Documented by: [id number] Ioversol (Optiray 320 125ml) 118 ml IV ONCE ONE Stop: 07/31/21 19:29 Last Admin: 07/31/21 19:28 Dose: 118 ml Documented by: [id number] Home Medications Lactobacillus Probiotic 1 tab PO QAM 07/31/21 [History Confirmed 07/31/21] acetaminophen 325 mg tablet 650 mg PO Q4 PRN MDD 3g 07/31/21 [History Confirmed 07/31/21] acetazolamide 500 mg capsule,extended release 500 mg PO DAILY 07/31/21 [History Confirmed 07/31/21] albuterol sulfate 90 mcg/actuation aerosol inhaler 1 puff INHALATION Q4 PRN 07/31/21 [History Confirmed 07/31/21] aspirin 81 mg chewable tablet 81 mg PO DAILY 07/31/21 [History Confirmed 07/31/21] atorvastatin 40 mg tablet 40 mg PO HS 07/31/21 [History Confirmed 07/31/21] cholecalciferol (vitamin D3) 25 mcg (1,000 unit) tablet 25 mcg PO DAILY 07/31/21 [History Confirmed 07/31/21] divalproex 250 mg tablet,delayed release 250 mg PO BID 07/31/21 [History Confirmed 07/31/21] donepezil 5 mg tablet (Aricept) 5 mg PO DAILY 07/31/21 [History Confirmed 07/31/21] guaifenesin 600 mg tablet, extended release 12 hr 600 mg PO Q12H 07/31/21 [ History Confirmed 07/31/21] insulin glargine 100 unit/mL (3 mL) subcutaneous pen (Lantus Solostar U-100 Insulin) 35 unit SUBCUT HS 07/31/21 [History Confirmed 07/31/21] insulin regular human 100 unit/mL injection solution (Humulin R Regular U-100 Insulin) 1 sliding scale dose SUBCUT ACHS 07/31/21 [History Confirmed 07/31/21] ipratropium 18 mcg-albuterol 103 mcg/actuation aerosol inhaler 1 spray IN HALATION QID 07/31/21 [History Confirmed 07/31/21] metoprolol tartrate 25 mg tablet 12.5 mg PO BID 07/31/21 [History Confirmed 07/31/21] pediatric multivitamin 1 tab PO DAILY 07/31/21 [History Confirmed 07/31/21] potassium chloride 20 mEq tablet,extended release 20 meq PO WM 07/31/21 [History Confirmed 07/31/21] quetiapine 50 mg tablet (Seroquel) 50 mg PO HS 07/31/21 [History Confirmed 07/31/21] sertraline 100 mg tablet 100 mg PO DAILY 07/31/21 [History Confirmed 07/31/21] sulfamethoxazole 800 mg-trimethoprim 160 mg tablet (Bactrim DS) 1 tab PO Q12H 07/31/21 [History Confirmed 07/31/21] terazosin 2 mg capsule 2 mg PO DAILY 07/31/21 [History Confirmed 07/31/21] theophylline 600 mg tablet,extended release 24 hr 600 mg PO DAILY 07/31/21 [History Confirmed 07/31/21] Active Medications Sodium Chloride (Nss 1000ml) 1,000 mls @ 125 mls/hr IV .Q8H [facility] Stop: 08/30/21 20:14 Ceftriaxone Sodium (Rocephin) 2,000 mg in 70 mls @ 100 mls/hr IV NOW STA; Protocol Stop: 07/31/21 22:18 Lactated Ringer's (Lr) 1,000 mls @ 90 mls/hr IV .Q11H7M [facility] Stop: 08/30/21 21:14 Miscellaneous Information (Vancomycin Consult Active) 1 ea N/A UD PRN PRN Reason: Consult Stop: 08/30/21 18:41 ECG Additional Comments: Sinus tachycardia Rightward axis Low voltage QRS Nonspecific ST and T wave abnormality Abnormal ECG No previous ECGs available Code Status & VTE Plan Code Status CODE: FULL VTE: SCDs, Heparin 5000 units subq q12 VTE Prophylaxis Plan VTE Prophylaxis will be ordered: Yes Supervising Physician Co-Signing Physician Notes Attending addendum: I have physically seen this patient, have supervised the YASMIN's activities, and agree with the H&P unless as otherwise noted. Assessment and Plan: Abscess on right lower back- Drained in ED, with wound culture and sensitivity pending Twice daily wet-to-dry dressing Placed on vancomycin IV and ceftriaxone IV Sepsis- orders as noted Seizure disorder- Continue Depakote Obstructive lung disease- Continue albuterol Continue theophylline if levels are normal Remaining orders and notations as noted PG Care Time/CCT Total # of Minutes Spent Total Time Spent with Patient: Total time spent is greater than 50% in coordination of care (as documented) at patient's floor/unit and/or counseling patient: Coding Level of Care Code 64660 Initial Inpt Care Lvl 3 Diagnoses Abscess L02.91 HLD (hyperlipidemia) E78.5 Obstructive lung disease J44.9 HTN (hypertension) I10 Diabetes E11.9 Dementia F03.90 Renal stones N20.0 Sepsis A41.[address] scan R93.89
[2021-07-31] MEDS ORDERED: LIDOCAINE/EPINEPHRINE 1% 20 ML VIAL ONE (21:27)
[2021-07-31] MEDS ORDERED: cefTRIAXone SODIUM 2,000 MG/70 ML BAG IV STA (21:37)
--- NOTE | 2021-07-31 21:55 | Operative Report ---
Post Operative Report Pre & Post Diagnosis right lower back abscess - 10 x 3 x [address] scan I identified the patient and participated in the time-out.: Yes Procedure incision and drainage of right lower back abscess Surgeon Ana Mcknight MD [employer] none Estimated Blood Loss 1 Findings Consistent with Post-Op Diagnosis large volume of pus and air within abscess cavity, eschar measuring 5 x 3 cm over middle of cavity Specimens wound culture Anesthesia Type Local Complications none Indications 71 yr old man admitted with right lower back abscess and surrounding cellulitis. Elevated WBC ct of 18, tachycardic, CT showed 10 cm air and fluid filled collection right lower back. Consented for drainage at bedside. Description of Procedure The patient was positioned on his side. His right lower back was cleaned with betadine and draped. The area was numbed with 20 cc of 1% lidocaine with epinephrine. An incision was made in the center of the eschar and a large volume of pus, necrotic tissue and air released. A wound culture was taken. The wound was expressed until no further pus noted. It was irrigated until the effluent was clear. The wound was packed with two 4 x 4 moistened gauze and covered with a dry dressing. He tolerated the procedure well (done at bedside in the ER) and was stable at the completion of the procedure. I attest to the content of the Intraoperative Record and any orders documented therein. Any exceptions are noted below.
[2021-07-31] MEDS ORDERED: LACTATED RINGER'S 1,000 ML IV STA (22:21)
[2021-07-31] MEDS ORDERED: LACTATED RINGER'S 500 ML IV STA (22:35)
[2021-08-01] MEDS ORDERED: GLUCAGON FOR INJ 1 MG VIAL SQ PRN (00:23)
[2021-08-01] MEDS ORDERED: LACTATED RINGER'S 500 ML IV ONE (00:23)
[2021-08-01] MEDS ORDERED: VANCOMYCIN HCL 500 MG in SODIUM CHLORIDE 0.9% 500 ML IV SCH (00:23)
[2021-08-01] MEDS ORDERED: GLUCOSE 10 TABS/TUBE PO PRN (00:23)
[2021-08-01] MEDS ORDERED: ALBUTEROL HFA 8 GM INHALER INH PRN (00:23)
[2021-08-01] MEDS ORDERED: VANCOMYCIN CONSULT ACTIVE PRN (00:23)
[2021-08-01] MEDS ORDERED: IPRATROPIUM ALBUTEROL INH SCH (00:23)
[2021-08-01] MEDS ORDERED: CARBOHYDRATES FOR HYPOGLYCEMIA PO PRN (00:23)
[2021-08-01] MEDS ORDERED: GLUCOSE 40% GEL 15 GM TUBE PO PRN (00:23)
[2021-08-01] MEDS ORDERED: DEXTROSE 50% 50 ML SYRINGE IV PRN (00:23)
[2021-08-01] MEDS: ACETAMINOPHEN 325 MG TAB PO PRN (00:57)
[2021-08-01] MEDS: ATORVASTATIN 40 MG TAB PO SCH ×2 (01:40→20:05)
[2021-08-01] MEDS: QUEtiapine FUMARATE 25 MG TABLET PO SCH ×2 (01:40→20:06)
[2021-08-01] MEDS: METOPROLOL TARTRATE 25 MG TAB PO SCH ×3 (01:40→20:06)
[2021-08-01] MEDS: INSULIN GLARGINE SOLOSTAR 100 UNITS/ML 3 ML PEN SQ SCH ×2 (01:40→20:09)
[2021-08-01] MEDS: INSULIN ASPART 100 UNITS/ML 3 ML PEN SC SCH ×5 (01:41→20:09)
[2021-08-01] MEDS: HEPARIN SOD 5,000 UNIT/0.5 ML VIAL SQ SCH ×3 (01:41→20:07)
[2021-08-01] MEDS ORDERED: FUROSEMIDE 20 MG in SYRINGE 0 ML IV ONE (04:30)
--- NOTE | 2021-08-01 04:33 | Communication Note ---
Date of Service: August 01, 2021 Called to bedside at 0343 following desaturation to the 70s on 3L NC, with continued desaturations into the low 80s despite transition to 15L oxymask. Upon presentation to bedside, patient sedate but arousable, lung sounds diminished in lower lung roblero bilaterally with coarse breath sounds over upper roblero, and poor respiratory effort. POC ABG demonstrating respiratory acidosis. CXR demonstrated pulmonary edema over b/l lower lobes R>L. Transitioned to BiPAP with subsequent improvement in O2 saturations. Will attempt to further diurese patient with Albumin and Lasix at this time. Wean BiPAP and FiO2 as tolerated. Resident Activity Tracking Resident Involvement: Resident Care Provided Care Provided: Adult [facility] Medicine
[2021-08-01] MEDS: ALBUMIN 25% 12.5 GM/50 ML VIAL IV SCH ×4 (04:38→06:02)
[2021-08-01 05:19] LABS: iSTAT Allen Test Pass; iSTAT Art Bld Gas pCO2 Correct 81 mmHg (35-46); iSTAT Art Bld Gas pH Corrected 7.231 (7.35-7.45); iSTAT Arterial Blood Gas HCO3 34 meg/L (19-24); iSTAT Arterial Blood Gas pCO2 84 mmHg (35-46); iSTAT Arterial Blood Gas pH 7.22 (7.35-7.45); iSTAT Arterial Blood Gas pO2 51 mmHg (80-95); iSTAT Arterial Blood Gas pO2 C 49; iSTAT Carbon Dioxide 37 mmol/L (24-31); iSTAT Hematocrit 32 % (42-52); iSTAT Hemoglobin 10.9 g/dl (14.0-18.0); iSTAT Potassium 3.6 mmol/L (3.3-5.0); iSTAT Site L Radial; iSTAT Sodium 142 mmol/L (135-144)
[2021-08-01] MEDS: DAPTOmycin 425 MG in SYRINGE 0 ML IV SCH (05:51)
--- NOTE | 2021-08-01 08:09 | XRay Report ---
SINGLE VIEW CHEST CLINICAL HISTORY: Hypoxia. FINDINGS: An AP, portable, upright chest radiograph is compared to study dated 07/31/2021. The heart i s enlarged noting atherosclerotic calcification of the thoracic aorta. The pulmonary vasculature is n oncongested. There are small pleural effusions with bibasilar consolidation. These a modestly enlarge d as compared to yesterday. No pneumothorax is seen. The skeletal structures are osteopenic. The bony thorax is grossly intact. IMPRESSION: 1. Cardiomegaly without radiographic evidence of congestive failure. 2. Small pleural effusions with bibasilar consolidation. These appear modestly increased in size from yesterday. ACT 112: Negative or not required by law. Electronically signed by: Flaco Batres M.D. 08/01/2021 8:07 AM
[2021-08-01] MEDS: Ipratropium HFA Inhaler (Combivent Respimat P&T Subs) INH SCH ×4 (08:23→20:24)
[2021-08-01] MEDS: Albuterol HFA 8 GM Inhaler (Combivent Respimat P&T Subs) INH SCH ×4 (08:23→20:24)
[2021-08-01] MEDS: SERTRALINE HCL 100 MG TABLET PO SCH (08:25)
[2021-08-01] MEDS: DONEPEZIL HCL 5 MG TAB PO SCH (08:26)
[2021-08-01 08:36] LABS: Basophils # (auto) 0.01 K/uL (0-0.2); Basophils % (auto) 0.1 %; Eosinophils # (auto) 0.02 K/uL (0-0.5); Eosinophils % (auto) 0.1 %; Hematocrit (blood only) 32.9 % (42-52); Hemoglobin 9.4 g/dL (14.0-18.0); Immature Granulocytes # (auto) 0.11 K/uL (0.00-0.02); Immature Granulocytes % (auto) 0.6 %; Lymphocytes # (auto) 1.06 K/uL (1.2-3.4); Lymphocytes % (auto) 6.3 %; Mean Corpuscular Hemoglobin 25.9 pg (25-34); Mean Corpuscular Hgb Conc 28.6 g/dL (32-36); Mean Corpuscular Volume 90.6 fL (80-100); Mean Platelet Volume 10.2 fL (7.4-10.4); Monocytes # (auto) 1.15 K/uL (0.11-0.59); Monocytes % (auto) 6.8 %; Neutrophils # (auto) 14.61 K/uL (1.4-6.5); Neutrophils % (auto) 86.1 %; Platelet Count 351 K/uL (130-400); RDW Coefficient of Variation 16.7 % (11.5-14.5); RDW Standard Deviation 55.7 fL (36.4-46.3); Red Blood Count 3.63 M/uL (4.7-6.1); White Blood Count 16.96 K/uL (4.8-10.8)
[2021-08-01 08:54] LABS: BUN Creatinine Ratio 17.3 (10-20); Calcium 9.7 mg/dl (8.5-10.1); Creatinine Clr Calc Pharmacy 151.1 ml/min; Est GFR (African American) 113.6 ml/min; Magnesium 2.3 mg/dl (1.8-2.4); Potassium 3.2 mmol/L (3.5-5.1)
--- NOTE | 2021-08-01 09:36 | Urology Consultation ---
Date of Consultation August 01, 2021 Assessment & Plan (1) Renal stones: (2) Hydronephrosis of right kidney: 71yo M admitted with a right lower back abscess with an incidental finding on CT of moderate to severe right-sided hydronephrosis without stone or obstructing lesion possibly representing UPJ type obstruction. - Plan of care and imaging reviewed with Dr. Baugh, on-call urologist - CT imaging reviewed - Moderate to severe right-sided hydronephrosis, no stone or obstructing lesion identified representing possible chronic UPJ type obstruction; Bilateral nephrolithiasis also noted - He is afebrile - Labs reviewed, Wbc trending down to 16.96 today, Hgb 9.4, and creatinine 0.67. - Urine and blood culture pending -- Continues on IV Ceftriaxone and Daptomycin - Wilkerson catheter draining clear, yellow urine - Given his stability, no acute intervention required at this time - Hydronephrosis can be managed as outpatient as this is likely chronic in nature - Continue supportive care and antibiotic therapy per primary team, follow cultures - Maintain wilkerson catheter, can consider voiding trial when medically optimized - Will arrange outpatient follow-up with urology service for continued care. - Thank you for allowing us to participate in the acute care of Mr. Harvey. Please reconsult us with additional questions, concerns or changes in patient status. History of Present Illness Reason for Consultation: right hydronephrosis poss. UPJ obstruction Attending Physician: Flash Vidal MD History of Present Illness 71yo M admitted with a right lower back abscess with an incidental finding on CT of moderate to severe right-sided hydronephrosis without stone or obstructing lesion possibly representing UPJ type obstruction. PMHx includes CHF, COPD, past smoker, Encephalopathy, DM II (on insulin), depression Urology consulted for right hydronephrosis, possible UPJ obstruction Chart review: s/p I&D of right lower back abscess on 07/31. Continues on IV Ceftriaxone and Daptomycin. Afebrile, VSS, on BiPAP. Wbc 16.96 Hgb 9.4 Cr 0.67 Urine culture pending Wilkerson catheter output overnight - 1450ml CTAP IMPRESSION: 1. Streak and motion compromised examination 2. There is an approximately 10 x 3 x 10 cm gas and fluid containing collection just deep to the dermal surface within the subcutaneous soft tissues of the right lower back as detailed above. This is typical for abscess and there is evidence of surrounding cellulitis. 3. There is no soft tissue gas identified outside of the collection. 4. There are small pleural effusions with dependent consolidation. This likely represents atelectasis. Correlate clinically for evidence of superimposed pneumonia. 5. There is moderate to severe right-sided hydronephrosis. No stone or obstructing lesion is identified and this may represent a UPJ type obstruction. Correlate with clinical findings and any prior outside imaging studies. 6. Bilateral nephrolithiasis. 7. There is mild nonspecific infiltration identified around the pancreatic tail. Correlate with clinical findings and serum amylase/lipase levels for evidence of acute pancreatitis. Pt examined at bedside this afternoon, asleep on arrival. Awakens to verbal stimuli. Answered a few questions but states he is tired and trying to rest. Denies abdominal and flank pain. Wilkerson intact, draining clear, yellow urine. No fevers or chills. Denies nausea or vomiting. On 3L O2. Denies prior hx of urological issues. He has not seen a urologist in the past. Denies hx of sto ashish. Denies prior baseline urinary symptoms or issues. Offers no additional complaints at present Allergies Allergy/AdvReac Type Severity Reaction Status Date / Time ketorolac [From Toradol] Allergy Unknown Unknown Verified 07/31/21 17:53 Home Medications Medication Instructions Recorded Confirmed Type Lactobacillus Probiotic 1 tab PO QAM 07/31/21 07/31/21 History acetaminophen 325 mg tablet 650 mg PO Q4 PRN MDD 3g 07/31/21 07/31/21 History acetazolamide 500 mg 500 mg PO DAILY 07/31/21 07/31/21 History capsule,extended release albuterol sulfate 90 mcg/actuation 1 puff INHALATION Q4 PRN 07/31/21 07/31/21 History aerosol inhaler aspirin 81 mg chewable tablet 81 mg PO DAILY 07/31/21 07/31/21 History atorvastatin 40 mg tablet 40 mg PO HS 07/31/21 07/31/21 History cholecalciferol (vitamin D3) 25 25 mcg PO DAILY 07/31/21 07/31/21 History mcg (1,000 unit) tablet divalproex 250 mg tablet,delayed 250 mg PO BID 07/31/21 07/31/21 History release donepezil 5 mg tablet (Aricept) 5 mg PO DAILY 07/31/21 07/31/21 History guaifenesin 600 mg tablet, 600 mg PO Q12H 07/31/21 07/31/21 History extended release 12 hr insulin glargine 100 unit/mL (3 35 unit SUBCUT HS 07/31/21 07/31/21 History mL) subcutaneous pen (Lantus Solostar U-100 Insulin) insulin regular human 100 unit/mL 1 sliding scale dose SUBCUT ACHS 07/31/21 07/31/21 History injection solution (Humulin R Regular U-100 Insulin) ipratropium 18 mcg-albuterol 103 1 spray INHALATION QID 07/31/21 07/31/21 History mcg/actuation aerosol inhaler metoprolol tartrate 25 mg tablet 12.5 mg PO BID 07/31/21 07/31/21 History pediatric multivitamin 1 tab PO DAILY 07/31/21 07/31/21 History potassium chloride 20 mEq 20 meq PO WM 07/31/21 07/31/21 History tablet,extended release quetiapine 50 mg tablet (Seroquel) 50 mg PO HS 07/31/21 07/31/21 History sertraline 100 mg tablet 100 mg PO DAILY 07/31/21 07/31/21 History sulfamethoxazole 800 1 tab PO Q12H 07/31/21 07/31/21 History mg-trimethoprim 160 mg tablet (Bactrim DS) terazosin 2 mg capsule 2 mg PO DAILY 07/31/21 07/31/21 History theophylline 600 mg 600 mg PO DAILY 07/31/21 07/31/21 History tablet,extended release 24 hr Patient History Medical History CHF (congestive heart failure) Dementia Diabetes HLD (hyperlipidemia) HTN (hypertension) Hydronephrosis of right kidney No pertinent family history Obesity Obstructive lung disease Smoker Surgical History No pertinent past surgical history Social History Smoking Status: Never smoker Hx Alcohol Use: No Hx Substance Use: No Preferred Language: Bermudian Communication Ability: Impaired 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 Beliefs That Will Affect Care: None marital status: Current Living Situation: Spouse How many Children do You have: 2 Other Information That Helps Us Care for You: No Feels Safe at Home: Yes Safety Concerns: Feels Safe At This Time Assistive Devices: Oxygen - Continuous and Wheelchair Review of Systems Review of Systems: All systems reviewed & are unremarkable except as noted in HPI & below Physical Exam Constitutional: + obese; no acute distress Neck: normal visual inspection Respiratory: no respiratory distress and no audible wheezes on 3L O2 Gastrointestinal (Abdomen): Percussion/Palpation: abdomen soft; abdomen nontender, no guarding and abdomen not rigid Musculoskeletal: Head/Neck/Chest: normocephalic Skin: No rash to visualized skin areas Neurologic: awake Psychiatric: Orientation: alert, oriented x 3 and cooperative Genitourinary: Wilkerson catheter intact Results & Data ([facility]) Vital Signs (Past 12 Hours) Vital Signs Temp Pulse Pulse Resp BP BP Pulse Ox 08/01/21 07:31 36.7 C 102 H 19 126/79 94 08/01/21 04:05 100 H 19 100 08/01/21 03:44 36.5 C 99 H 16 121/73 08/01/21 00:19 139 H 08/01/21 00:10 37.4 C 136 H 20 126/77 91 07/31/21 23:30 138 H 22 132/74 91 07/31/21 23:00 146 H 22 161/94 H 92 07/31/21 21:01 145 H 20 142/97 H 92 PG Care Time/CCT Total # of Minutes Spent Total Time Spent with Patient: Total time spent is greater than 50% in coordination of care (as documented) at patient's floor/unit and/or counseling patient: Coding Level of Care Code 27596 Initial Inpt Care Lvl 2 Diagnoses Renal stones N20.0 Hydronephrosis of right kidney N13.30
[2021-08-01] MEDS: HYDROmorphone INJ 0.5 MG/0.5 ML SYR IV PRN ×2 (11:17→17:18)
[2021-08-01] MEDS ORDERED: AZITHROMYCIN 250 MG TAB PO ONE (14:38)
--- NOTE | 2021-08-01 14:41 | Hospitalist Progress Note ---
Date of Service August 01, 2021 Assessment & Plan (1) Abscess: Plan: Right low back abscess Drained and irrigated 07/31 by surgical team - Wound culture pending - BID wet to dry dressing - Continue Vancomycin - pharmacy to dose - Continue Rocephin daily White blood cell count downtrending (2) Sepsis: Plan: SIRS 2, Qsofa-2 On admission Leukocytosis downtrending, lactate negative, pro-John negative Fluids discontinued Source control as above Antibiotics as above (3) Acute hypoxemic respiratory failure: Plan: CXR: Initial read as patient with right greater than left opacities, increased pleural effusions. On review cardiomegaly without congestive failure, although bibasilar consolidations appreciated. Pt on rocephin tx, + Azithromycin x5 days and continue incentive cain/flutter & follow clinically (4) HLD (hyperlipidemia): Plan: Atorvastatin 40mg daily (5) Seizure: Plan: Continue with Depakote (6) Obstructive lung disease: Plan: Past smoker quit in 2011 per - Continue albuterol - Continue Theophylline - Serum level normal - +Azithro as noted above (7) HTN (hypertension): Plan: Continue metoprolol as long as remains normotensive (8) Diabetes: Plan: Continue Lantus - Aspart sliding scale- CF 20, ratio 1:9 (9) Dementia: Plan: Cotninue with aricept (10) Renal stones: Plan: Oxalate stone in urine- noted on CT scan- numerous - noted with right sided hydronephrosis- with possible UPJ obstruction - Urology consulted - no other images available for comparison (11) Abnormal CT scan: Plan: Mild non-specific infiltration around pancreatic tail - lipase not elevated - no abdominal pain or other symptoms consistent with acute pancreatitis - follow clinically - continue crystalloid with sepsis Admission and Anticipated Discharge Date Admission Date: July 31, 2021 Subjective Dale seen at the bedside this morning. He is on BiPAP, breathing comfortably. Reports he feels "tired "but otherwise "okay ". Reports he still has a lot of pain in his back, 3/10 at rest but, very bad "with movement. Is oriented to name, place, and year. Reports uses 4 L of oxygen at baseline at home, endorses wet cough overnight. Denies shortness of breath at time of bedside assessment. Review of Systems Review of Systems: Review of systems negative except as noted in subjective Physical Exam Physical Exam: General: A&Ox3. NAD. Cooperative. On BiPAP. HEENT: Atraumatic, normocephalic. Pupils equal and reactive to light. Extraocular movements intact without nystagmus. Visual acuity and hearing grossly intact. Pulm: Diminished, crackles in bases, diffusely coarse. No distress. Cardiac: RRR, -mrg. Radial pulses intact and symmetrical. Abdominal: Central supraumbilical skin ulceration, without overlying discharge/erythema. Abdomen nontender, nonrigid. Back: Large right low back postsurgical dressing intact, lightly with serous staining no expanding erythema/discharge/blood. Results & Data Results & Data ([facility]) Vital Signs (Past 12 Hours) Vital Signs Temp Pulse Pulse Resp BP BP Pulse Ox 08/01/21 07:31 36.7 C 102 H 19 126/79 94 08/01/21 04:05 100 H 19 100 08/01/21 03:44 36.5 C 99 H 16 121/73 08/01/21 00:19 139 H 08/01/21 00:10 37.4 C 136 H 20 126/77 91 07/31/21 23:30 138 H 22 132/74 91 07/31/21 23:00 146 H 22 161/94 H 92 07/31/21 21:01 145 H 20 142/97 H 92 07/31/21 20:30 145 H 20 144/109 H 98 07/31/21 20:04 147 H 18 169/83 H 92 PG Care Time/CCT Total # of Minutes Spent Total Time Spent with Patient: Total time spent is greater than 50% in coordination of care (as documented) at patient's floor/unit and/or counseling patient: Coding Level of Care Code 23772 Subseq Hosp Care Lvl 3 Diagnoses Abscess L02.91 Sepsis A41.9 HLD (hyperlipidemia) E78.5 Seizure R56.9 Obstructive lung disease J44.9 HTN (hypertension) I10 Diabetes E11.9 Dementia F03.90 Renal stones N20.[address] scan R93.89 Acute hypoxemic respiratory failure J96.01
[2021-08-01] MEDS: FUROSEMIDE 20 MG in SYRINGE 0 ML IV SCH (15:39)
[2021-08-01] MEDS ORDERED: POTASSIUM CHLORIDE CRTAB 20 MEQ TABCR PO ONE (15:49)
--- NOTE | 2021-08-01 15:50 | Electrocardiogram Report ---
Test Reason : Blood Pressure : / mmHG Vent. Rate : 135 BPM Atrial Rate : 135 BPM P-R Int : 188 ms QRS Dur : 084 ms QT Int : 234 ms P-R-T Axes : 000 091 118 degrees QTc Int : 351 ms Poor data quality, interpretation may be adversely affected Sinus tachycardia Rightward axis Low voltage QRS Nonspecific ST and T wave abnormality Abnormal ECG No previous ECGs available Confirmed by Bladimir Mcduffie ([id number]) on 08/01/2021 3:50:17 PM Referred By: REFERRED SELF Confirmed By:Bladimir Mcduffie
--- NOTE | 2021-08-01 16:15 | Surgery Progress Note ---
Date of Service August 01, 2021 Assessment & Plan (1) Abscess: Plan: abscess repacked wet to dry. minimal drainage but still significant tenderness. dry eschar surrounding I&D site. may require debridement, most likely in OR. will follow. Admission and Anticipated Discharge Date Admission Date: July 31, 2021 Subjective still significant pain to his upper back. no fevers. no nausea Physical Exam Constitutional: WD/WN, vitals as above Eyes: PERRL, conjunctivae normal, anicteric sclerae Neck: trachea midline, no thyromegaly Skin: no rashes, warm and dry upper back - packing removed. abscess cavity with minimal drainage; slight erythema; 3 cm eschar surrounding opening; repacked with gauze wet to dry Psychiatric: A+Ox3, euthymic affect Results & Data ([facility]) Vital Signs (Past 12 Hours) Vital Signs Temp Pulse Pulse Resp BP Pulse Ox 08/01/21 15:53 37.0 C 90 16 124/62 94 08/01/21 15:11 102 H 18 95 08/01/21 10:51 87 21 08/01/21 10:49 21 97 08/01/21 10:42 36.9 C 89 20 112/70 98 08/01/21 08:00 94 H 08/01/21 07:31 36.7 C 102 H 19 126/79 94 08/01/21 07:10 104 H 21 99 Laboratory Results 08/01/21 08/01/21 08/01/21 Range/Units 11:16 08:00 08:00 WBC 16.96 H (4.8-10.8) K/uL RBC 3.63 L (4.7-6.1) M/uL Hgb 9.4 L (14.0-18.0) g/dL POC Hgb (14.0-18.0) g/dl Hct 32.9 L (42-52) % POC Hct (42-52) % MCV 90.6 (80-100) fL MCH 25.9 (25-34) pg MCHC 28.6 L (32-36) g/dL RDW Std Deviation 55.7 H (36.4-46.3) fL RDW Coeff of Raquel 16.7 H (11.5-14.5) % Plt Count 351 (130-400) K/uL MPV 10.2 (7.4-10.4) fL Immature Gran % (Auto) 0.6 % Neut % (Auto) 86.1 % Lymph % (Auto) 6.3 % [place] % (Auto) 6.8 % Eos % (Auto) 0.1 % Baso % (Auto) 0.1 % Neut # (Auto) 14.61 H (1.4-6.5) K/uL Lymph # (Auto) 1.06 L (1.2-3.4) K/uL [place] # (Auto) 1.15 H (0.11-0.59) K/uL Eos # (Auto) 0.02 (0-0.5) K/uL Baso # (Auto) 0.01 (0-0.2) K/uL Immature Gran # (Auto) 0.11 H (0.00-0.02) K/uL ESR (0-20) mm/hr PT (9.0-12.0) Seconds INR (0.9-1.1) APTT (21.0-31.0) Seconds PTT Ratio Sample Site POC pH (7.35-7.45) POC pCO2 (35-46) mmHg POC pO2 (80-95) mmHg POC HCO3 (19-24) alondra/L POC Base Excess (-9-1.8) alondra/L ABG pH (Temp Correct) (7.35-7.45) ABG pCO2 (Temp Corrct (35-46) mmHg POC ABG pO2 at Pt Temp POC ABG O2 Sat (90-95) % Vernon Test O2 Delivery Device POC Sodium (135-144) mmol/L Sodium 139 (136-145) mmol/L POC Potassium (3.3-5.0) mmol/L Potassium 3.2 L D (3.5-5.1) mmol/L POC Chloride (101-112) mmol/L Chloride 103 (98-107) mmol/L Carbon Dioxide 32 (21-32) mmol/L POC Total CO2 (24-31) mmol/L Anion Gap 5.0 (3-11) POC Anion Gap (16-25) mmol/L POC BUN (7-18) mg/dl BUN 12 (7-18) mg/dl Creatinine 0.67 (0.6-1.4) mg/dl POC Creatinine (0.6-1.3) mg/dl Est Cr Clr Drug Dosing 151.1 ml/min Est GFR ( Amer) 113.6 ml/min Est GFR (Non-Af Amer) 98.0 ml/min BUN/Creatinine Ratio 17.3 (10-20) Glucose 152 H (70-99) mg/dl POC Glucose 127 H (70-99) mg/dl POC Glucose (other) (70-99) mg/dl Lactate (0.4-2.0) mmol/L Calcium 9.7 (8.5-10.1) mg/dl POC Ioniz Calcium Gurjit (1.12-1.32) mmol/l Magnesium 2.3 (1.8-2.4) mg/dl Total Bilirubin (0.2-1) mg/dl AST (15-37) U/L ALT (12-78) U/L Alkaline Phosphatase (45-117) U/L Troponin I (0-0.045) ng/ml C-Reactive Protein (0-0.29) mg/dl Total Protein (6.4-8.2) gm/dl Albumin (3.4-5.0) gm/dl Globulin (2.5-4.0) gm/dl Albumin/Globulin Ratio (0.9-2) Lipase (73-393) U/L Procalcitonin (0-0.5) ng/ml Urine Color Urine Appearance (Clear) Urine pH (4.5-7.5) Ur Specific [place] (1.000-1.030) Urine Protein (Negative) Urine Glucose (UA) (Negative) Urine Ketones (Negative) Urine Blood (Negative) Urine Nitrite (Negative) Urine Bilirubin (Negative) Urine Urobilinogen (Negative) Ur Leukocyte Esterase (Negative) Urine WBC (Auto) (0-5) /hpf Urine RBC (Auto) (0-4) /hpf U Hyaline Cast (Auto) (0-5) /lpf U Epithel Cells (Auto) (0-5) /lpf Urine Bacteria (Auto) (Negative) Ur Renal Epithelial Cell Urine Crystals (None Prsent) Calcium Oxalate Crystal (None Prsent) Urine Yeast Theophylline (10-20) mcg/ml COVID-19 Eval Order SARS-CoV-2 (PCR) (Negative) 08/01/21 08/01/21 08/01/21 Range/Units 07:02 03:58 03:37 WBC (4.8-10.8) K/uL RBC (4.7-6.1) M/uL Hgb (14.0-18.0) g/dL POC Hgb 10.9 L (14.0-18.0) g/dl Hct (42-52) % POC Hct 32 L (42-52) % MCV (80-100) fL MCH (25-34) pg MCHC (32-36) g/dL RDW Std Deviation (36.4-46.3) fL RDW Coeff of Raquel (11.5-14.5) % Plt Count (130-400) K/uL MPV (7.4-10.4) fL Immature Gran % (Auto) % Neut % (Auto) % Lymph % (Auto) % [place] % (Auto) % Eos % (Auto) % Baso % (Auto) % Neut # (Auto) (1.4-6.5) K/uL Lymph # (Auto) (1.2-3.4) K/uL [place] # (Auto) (0.11-0.59) K/uL Eos # (Auto) (0-0.5) K/uL Baso # (Auto) (0-0.2) K/uL Immature Gran # (Auto) (0.00-0.02) K/uL ESR (0-20) mm/hr PT (9.0-12.0) Seconds INR (0.9-1.1) APTT (21.0-31.0) Seconds PTT Ratio Sample Site L Radial POC pH 7.22 L (7.35-7.45) POC pCO2 84 H (35-46) mmHg POC pO2 51 L (80-95) mmHg POC HCO3 34 H (19-24) alondra/L POC Base Excess 7.0 H (-9-1.8) alondra/L ABG pH (Temp Correct) 7.231 L (7.35-7.45) ABG pCO2 (Temp Corrct 81 H (35-46) mmHg POC ABG pO2 at Pt Temp 49 POC ABG O2 Sat 76.0 L (90-95) % Evrnon Test Pass O2 Delivery Device SimpleMask POC Sodium 142 (135-144) mmol/L Sodium (136-145) mmol/L POC Potassium 3.6 (3.3-5.0) mmol/L Potassium (3.5-5.1) mmol/L POC Chloride (101-112) mmol/L Chloride (98-107) mmol/L Carbon Dioxide (21-32) mmol/L POC Total CO2 37 H (24-31) mmol/L Anion Gap (3-11) POC Anion Gap (16-25) mmol/L POC BUN (7-18) mg/dl BUN (7-18) mg/dl Creatinine (0.6-1.4) mg/dl POC Creatinine (0.6-1.3) mg/dl Est Cr Clr Drug Dosing ml/min Est GFR ( Amer) ml/min Est GFR (Non-Af Amer) ml/min BUN/Creatinine Ratio (10-20) Glucose (70-99) mg/dl POC Glucose 158 H 151 H (70-99) mg/dl POC Glucose (other) (70-99) mg/dl Lactate (0.4-2.0) mmol/L Calcium (8.5-10.1) mg/dl POC Ioniz Calcium Gurjit (1.12-1.32) mmol/l Magnesium (1.8-2.4) mg/dl Total Bilirubin (0.2-1) mg/dl AST (15-37) U/L ALT (12-78) U/L Alkaline Phosphatase (45-117) U/L Troponin I (0-0.045) ng/ml C-Reactive Protein (0-0.29) mg/dl Total Protein (6.4-8.2) gm/dl Albumin (3.4-5.0) gm/dl Globulin (2.5-4.0) gm/dl Albumin/Globulin Ratio (0.9-2) Lipase (73-393) U/L Procalcitonin (0-0.5) ng/ml Urine Color Urine Appearance (Clear) Urine pH (4.5-7.5) Ur Specific [place] (1.000-1.030) Urine Protein (Negative) Urine Glucose (UA) (Negative) Urine Ketones (Negative) Urine Blood (Negative) Urine Nitrite (Negative) Urine Bilirubin (Negative) Urine Urobilinogen (Negative) Ur Leukocyte Esterase (Negative) Urine WBC (Auto) (0-5) /hpf Urine RBC (Auto) (0-4) /hpf U Hyaline Cast (Auto) (0-5) /lpf U Epithel Cells (Auto) (0-5) /lpf Urine Bacteria (Auto) (Negative) Ur Renal Epithelial Cell Urine Crystals (None Prsent) Calcium Oxalate Crystal (None Prsent) Urine Yeast Theophylline (10-20) mcg/ml COVID-19 Eval Order SARS-CoV-2 (PCR) (Negative) 08/01/21 08/01/21 08/01/21 Range/Units 01:00 00:35 00:35 WBC (4.8-10.8) K/uL RBC (4.7-6.1) M/uL Hgb (14.0-18.0) g/dL POC Hgb (14.0-18.0) g/dl Hct (42-52) % POC Hct (42-52) % MCV (80-100) fL MCH (25-34) pg MCHC (32-36) g/dL RDW Std Deviation (36.4-46.3) fL RDW Coeff of Raquel (11.5-14.5) % Plt Count (130-400) K/uL MPV (7.4-10.4) fL Immature Gran % (Auto) % Neut % (Auto) % Lymph % (Auto) % [place] % (Auto) % Eos % (Auto) % Baso % (Auto) % Neut # (Auto) (1.4-6.5) K/uL Lymph # (Auto) (1.2-3.4) K/uL [place] # (Auto) (0.11-0.59) K/uL Eos # (Auto) (0-0.5) K/uL Baso # (Auto) (0-0.2) K/uL Immature Gran # (Auto) (0.00-0.02) K/uL ESR (0-20) mm/hr PT (9.0-12.0) Seconds INR (0.9-1.1) APTT (21.0-31.0) Seconds PTT Ratio Sample Site POC pH (7.35-7.45) POC pCO2 (35-46) mmHg POC pO2 (80-95) mmHg POC HCO3 (19-24) alondra/L POC Base Excess (-9-1.8) alondra/L ABG pH (Temp Correct) (7.35-7.45) ABG pCO2 (Temp Corrct (35-46) mmHg POC ABG pO2 at Pt Temp POC ABG O2 Sat (90-95) % Vernon Test O2 Delivery Device POC Sodium (135-144) mmol/L Sodium (136-145) mmol/L POC Potassium (3.3-5.0) mmol/L Potassium (3.5-5.1) mmol/L POC Chloride (101-112) mmol/L Chloride (98-107) mmol/L Carbon Dioxide (21-32) mmol/L POC Total CO2 (24-31) mmol/L Anion Gap (3-11) POC Anion Gap (16-25) mmol/L POC BUN (7-18) mg/dl BUN (7-18) mg/dl Creatinine (0.6-1.4) mg/dl POC Creatinine (0.6-1.3) mg/dl Est Cr Clr Drug Dosing ml/min Est GFR ( Amer) ml/min Est GFR (Non-Af Amer) ml/min BUN/Creatinine Ratio (10-20) Glucose (70-99) mg/dl POC Glucose 173 H (70-99) mg/dl POC Glucose (other) (70-99) mg/dl Lactate (0.4-2.0) mmol/L Calcium (8.5-10.1) mg/dl POC Ioniz Calcium Gurjit (1.12-1.32) mmol/l Magnesium (1.8-2.4) mg/dl Total Bilirubin (0.2-1) mg/dl AST (15-37) U/L ALT (12-78) U/L Alkaline Phosphatase (45-117) U/L Troponin I (0-0.045) ng/ml C-Reactive Protein 23.60 H (0-0.29) mg/dl Total Protein (6.4-8.2) gm/dl Albumin (3.4-5.0) gm/dl Globulin (2.5-4.0) gm/dl Albumin/Globulin Ratio (0.9-2) Lipase (73-393) U/L Procalcitonin (0-0.5) ng/ml Urine Color Urine Appearance (Clear) Urine pH (4.5-7.5) Ur Specific [place] (1.000-1.030) Urine Protein (Negative) Urine Glucose (UA) (Negative) Urine Ketones (Negative) Urine Blood (Negative) Urine Nitrite (Negative) Urine Bilirubin (Negative) Urine Urobilinogen (Negative) Ur Leukocyte Esterase (Negative) Urine WBC (Auto) (0-5) /hpf Urine RBC (Auto) (0-4) /hpf U Hyaline Cast (Auto) (0-5) /lpf U Epithel Cells (Auto) (0-5) /lpf Urine Bacteria (Auto) (Negative) Ur Renal Epithelial Cell Urine Crystals (None Prsent) Calcium Oxalate Crystal (None Prsent) Urine Yeast Theophylline 10 (10-20) mcg/ml COVID-19 Eval Order SARS-CoV-2 (PCR) (Negative) 08/01/21 07/31/21 07/31/21 Range/Units 00:35 21:13 21:13 WBC (4.8-10.8) K/uL RBC (4.7-6.1) M/uL Hgb (14.0-18.0) g/dL POC Hgb (14.0-18.0) g/dl Hct (42-52) % POC Hct (42-52) % MCV (80-100) fL MCH (25-34) pg MCHC (32-36) g/dL RDW Std Deviation (36.4-46.3) fL RDW Coeff of Raquel (11.5-14.5) % Plt Count (130-400) K/uL MPV (7.4-10.4) fL Immature Gran % (Auto) % Neut % (Auto) % Lymph % (Auto) % [place] % (Auto) % Eos % (Auto) % Baso % (Auto) % Neut # (Auto) (1.4-6.5) K/uL Lymph # (Auto) (1.2-3.4) K/uL [place] # (Auto) (0.11-0.59) K/uL Eos # (Auto) (0-0.5) K/uL Baso # (Auto) (0-0.2) K/uL Immature Gran # (Auto) (0.00-0.02) K/uL ESR > 130 H (0-20) mm/hr PT (9.0-12.0) Seconds INR (0.9-1.1) APTT (21.0-31.0) Seconds PTT Ratio Sample Site POC pH (7.35-7.45) POC pCO2 (35-46) mmHg POC pO2 (80-95) mmHg POC HCO3 (19-24) alondra/L POC Base Excess (-9-1.8) alondra/L ABG pH (Temp Correct) (7.35-7.45) ABG pCO2 (Temp Corrct (35-46) mmHg POC ABG pO2 at Pt Temp POC ABG O2 Sat (90-95) % Vernon Test O2 Delivery Device POC Sodium (135-144) mmol/L Sodium (136-145) mmol/L POC Potassium (3.3-5.0) mmol/L Potassium (3.5-5.1) mmol/L POC Chloride (101-112) mmol/L Chloride (98-107) mmol/L Carbon Dioxide (21-32) mmol/L POC Total CO2 (24-31) mmol/L Anion Gap (3-11) POC Anion Gap (16-25) mmol/L POC BUN (7-18) mg/dl BUN (7-18) mg/dl Creatinine (0.6-1.4) mg/dl POC Creatinine (0.6-1.3) mg/dl Est Cr Clr Drug Dosing ml/min Est GFR ( Amer) ml/min Est GFR (Non-Af Amer) ml/min BUN/Creatinine Ratio (10-20) Glucose (70-99) mg/dl POC Glucose (70-99) mg/dl POC Glucose (other) (70-99) mg/dl Lactate (0.4-2.0) mmol/L Calcium (8.5-10.1) mg/dl POC Ioniz Calcium Gurjit (1.12-1.32) mmol/l Magnesium (1.8-2.4) mg/dl Total Bilirubin (0.2-1) mg/dl AST (15-37) U/L ALT (12-78) U/L Alkaline Phosphatase (45-117) U/L Troponin I (0-0.045) ng/ml C-Reactive Protein (0-0.29) mg/dl Total Protein (6.4-8.2) gm/dl Albumin (3.4-5.0) gm/dl Globulin (2.5-4.0) gm/dl Albumin/Globulin Ratio (0.9-2) Lipase (73-393) U/L Procalcitonin (0-0.5) ng/ml Urine Color Urine Appearance (Clear) Urine pH (4.5-7.5) Ur Specific [place] (1.000-1.030) Urine Protein (Negative) Urine Glucose (UA) (Negative) Urine Ketones (Negative) Urine Blood (Negative) Urine Nitrite (Negative) Urine Bilirubin (Negative) Urine Urobilinogen (Negative) Ur Leukocyte Esterase (Negative) Urine WBC (Auto) (0-5) /hpf Urine RBC (Auto) (0-4) /hpf U Hyaline Cast (Auto) (0-5) /lpf U Epithel Cells (Auto) (0-5) /lpf Urine Bacteria (Auto) (Negative) Ur Renal Epithelial Cell Urine Crystals (None Prsent) Calcium Oxalate Crystal (None Prsent) Urine Yeast Theophylline (10-20) mcg/ml COVID-19 Eval Order Covid19 at [facility] SARS-CoV-2 (PCR) NEGATIVE (Negative) 07/31/21 07/31/21 07/31/21 Range/Units 20:38 19:50 18:39 WBC (4.8-10.8) K/uL RBC (4.7-6.1) M/uL Hgb (14.0-18.0) g/dL POC Hgb 10.9 L (14.0-18.0) g/dl Hct (42-52) % POC Hct 32 L (42-52) % MCV (80-100) fL MCH (25-34) pg MCHC (32-36) g/dL RDW Std Deviation (36.4-46.3) fL RDW Coeff of Raquel (11.5-14.5) % Plt Count (130-400) K/uL MPV (7.4-10.4) fL Immature Gran % (Auto) % Neut % (Auto) % Lymph % (Auto) % [place] % (Auto) % Eos % (Auto) % Baso % (Auto) % Neut # (Auto) (1.4-6.5) K/uL Lymph # (Auto) (1.2-3.4) K/uL [place] # (Auto) (0.11-0.59) K/uL Eos # (Auto) (0-0.5) K/uL Baso # (Auto) (0-0.2) K/uL Immature Gran # (Auto) (0.00-0.02) K/uL ESR (0-20) mm/hr PT (9.0-12.0) Seconds INR (0.9-1.1) APTT (21.0-31.0) Seconds PTT Ratio Sample Site POC pH (7.35-7.45) POC pCO2 (35-46) mmHg POC pO2 (80-95) mmHg POC HCO3 (19-24) alondra/L POC Base Excess (-9-1.8) alondra/L ABG pH (Temp Correct) (7.35-7.45) ABG pCO2 (Temp Corrct (35-46) mmHg POC ABG pO2 at Pt Temp POC ABG O2 Sat (90-95) % Vernon Test O2 Delivery Device POC Sodium 137 (135-144) mmol/L Sodium (136-145) mmol/L POC Potassium 4.1 (3.3-5.0) mmol/L Potassium (3.5-5.1) mmol/L POC Chloride 95 L (101-112) mmol/L Chloride (98-107) mmol/L Carbon Dioxide (21-32) mmol/L POC Total CO2 31 (24-31) mmol/L Anion Gap (3-11) POC Anion Gap 16.0 (16-25) mmol/L POC BUN 13 (7-18) mg/dl BUN (7-18) mg/dl Creatinine (0.6-1.4) mg/dl POC Creatinine 0.9 (0.6-1.3) mg/dl Est Cr Clr Drug Dosing ml/min Est GFR ( Amer) ml/min Est GFR (Non-Af Amer) ml/min BUN/Creatinine Ratio (10-20) Glucose (70-99) mg/dl POC Glucose (70-99) mg/dl POC Glucose (other) 182 H (70-99) mg/dl Lactate 1.0 (0.4-2.0) mmol/L Calcium (8.5-10.1) mg/dl POC Ioniz Calcium Gurjit 1.28 (1.12-1.32) mmol/l Magnesium (1.8-2.4) mg/dl Total Bilirubin (0.2-1) mg/dl AST (15-37) U/L ALT (12-78) U/L Alkaline Phosphatase (45-117) U/L Troponin I (0-0.045) ng/ml C-Reactive Protein (0-0.29) mg/dl Total Protein (6.4-8.2) gm/dl Albumin (3.4-5.0) gm/dl Globulin (2.5-4.0) gm/dl Albumin/Globulin Ratio (0.9-2) Lipase (73-393) U/L Procalcitonin (0-0.5) ng/ml Urine Color Yellow Urine Appearance Cloudy A (Clear) Urine pH 6.0 (4.5-7.5) Ur Specific [place] > 1.045 H (1.000-1.030) Urine Protein Negative (Negative) Urine Glucose (UA) Negative (Negative) Urine Ketones Negative (Negative) Urine Blood Trace H (Negative) Urine Nitrite Negative (Negative) Urine Bilirubin Negative (Negative) Urine Urobilinogen Negative (Negative) Ur Leukocyte Esterase Negative (Negative) Urine WBC (Auto) 1-5 (0-5) /hpf Urine RBC (Auto) 0-4 (0-4) /hpf U Hyaline Cast (Auto) 1-5 (0-5) /lpf U Epithel Cells (Auto) >30 H (0-5) /lpf Urine Bacteria (Auto) Negative (Negative) Ur Renal Epithelial Cell Not Reportable Urine Crystals Calcium Oxalate A (None Prsent) Calcium Oxalate Crystal Present A (None Prsent) Urine Yeast Not Reportable Theophylline (10-20) mcg/ml COVID-19 Eval Order SARS-CoV-2 (PCR) (Negative) 07/31/21 07/31/21 07/31/21 Range/Units 18:26 16:56 16:56 WBC (4.8-10.8) K/uL RBC (4.7-6.1) M/uL Hgb (14.0-18.0) g/dL POC Hgb (14.0-18.0) g/dl Hct (42-52) % POC Hct (42-52) % MCV (80-100) fL MCH (25-34) pg MCHC (32-36) g/dL RDW Std Deviation (36.4-46.3) fL RDW Coeff of Raquel (11.5-14.5) % Plt Count (130-400) K/uL MPV (7.4-10.4) fL Immature Gran % (Auto) % Neut % (Auto) % Lymph % (Auto) % [place] % (Auto) % Eos % (Auto) % Baso % (Auto) % Neut # (Auto) (1.4-6.5) K/uL Lymph # (Auto) (1.2-3.4) K/uL [place] # (Auto) (0.11-0.59) K/uL Eos # (Auto) (0-0.5) K/uL Baso # (Auto) (0-0.2) K/uL Immature Gran # (Auto) (0.00-0.02) K/uL ESR (0-20) mm/hr PT (9.0-12.0) Seconds INR (0.9-1.1) APTT (21.0-31.0) Seconds PTT Ratio Sample Site POC pH (7.35-7.45) POC pCO2 (35-46) mmHg POC pO2 (80-95) mmHg POC HCO3 (19-24) alondra/L POC Base Excess (-9-1.8) alondra/L ABG pH (Temp Correct) (7.35-7.45) ABG pCO2 (Temp Corrct (35-46) mmHg POC ABG pO2 at Pt Temp POC ABG O2 Sat (90-95) % Vernon Test O2 Delivery Device POC Sodium (135-144) mmol/L Sodium (136-145) mmol/L POC Potassium (3.3-5.0) mmol/L Potassium (3.5-5.1) mmol/L POC Chloride (101-112) mmol/L Chloride (98-107) mmol/L Carbon Dioxide (21-32) mmol/L POC Total CO2 (24-31) mmol/L Anion Gap (3-11) POC Anion Gap (16-25) mmol/L POC BUN (7-18) mg/dl BUN (7-18) mg/dl Creatinine (0.6-1.4) mg/dl POC Creatinine (0.6-1.3) mg/dl Est Cr Clr Drug Dosing ml/min Est GFR ( Amer) ml/min Est GFR (Non-Af Amer) ml/min BUN/Creatinine Ratio (10-20) Glucose (70-99) mg/dl POC Glucose 185 H (70-99) mg/dl POC Glucose (other) (70-99) mg/dl Lactate (0.4-2.0) mmol/L Calcium (8.5-10.1) mg/dl POC Ioniz Calcium Gurjit (1.12-1.32) mmol/l Magnesium (1.8-2.4) mg/dl Total Bilirubin (0.2-1) mg/dl AST (15-37) U/L ALT (12-78) U/L Alkaline Phosphatase (45-117) U/L Troponin I (0-0.045) ng/ml C-Reactive Protein (0-0.29) mg/dl Total Protein (6.4-8.2) gm/dl Albumin (3.4-5.0) gm/dl Globulin (2.5-4.0) gm/dl Albumin/Globulin Ratio (0.9-2) Lipase 67 L (73-393) U/L Procalcitonin 0.40 (0-0.5) ng/ml Urine Color Urine Appearance (Clear) Urine pH (4.5-7.5) Ur Specific [place] (1.000-1.030) Urine Protein (Negative) Urine Glucose (UA) (Negative) Urine Ketones (Negative) Urine Blood (Negative) Urine Nitrite (Negative) Urine Bilirubin (Negative) Urine Urobilinogen (Negative) Ur Leukocyte Esterase (Negative) Urine WBC (Auto) (0-5) /hpf Urine RBC (Auto) (0-4) /hpf U Hyaline Cast (Auto) (0-5) /lpf U Epithel Cells (Auto) (0-5) /lpf Urine Bacteria (Auto) (Negative) Ur Renal Epithelial Cell Urine Crystals (None Prsent) Calcium Oxalate Crystal (None Prsent) Urine Yeast Theophylline (10-20) mcg/ml COVID-19 Eval Order SARS-CoV-2 (PCR) (Negative) 07/31/21 07/31/21 07/31/21 Range/Units 16:56 16:56 16:56 WBC 18.81 H (4.8-10.8) K/uL RBC 3.62 L (4.7-6.1) M/uL Hgb 9.5 L (14.0-18.0) g/dL POC Hgb (14.0-18.0) g/dl Hct 32.5 L (42-52) % POC Hct (42-52) % MCV 89.8 (80-100) fL MCH 26.2 (25-34) pg MCHC 29.2 L (32-36) g/dL RDW Std Deviation 54.8 H (36.4-46.3) fL RDW Coeff of Raquel 16.4 H (11.5-14.5) % Plt Count 373 (130-400) K/uL MPV 10.6 H (7.4-10.4) fL Immature Gran % (Auto) 0.5 % Neut % (Auto) 88.2 % Lymph % (Auto) 5.2 % [place] % (Auto) 5.7 % Eos % (Auto) 0.3 % Baso % (Auto) 0.1 % Neut # (Auto) 16.59 H (1.4-6.5) K/uL Lymph # (Auto) 0.97 L (1.2-3.4) K/uL [place] # (Auto) 1.08 H (0.11-0.59) K/uL Eos # (Auto) 0.06 (0-0.5) K/uL Baso # (Auto) 0.01 (0-0.2) K/uL Immature Gran # (Auto) 0.10 H (0.00-0.02) K/uL ESR (0-20) mm/hr PT 11.7 (9.0-12.0) Seconds INR 1.2 H (0.9-1.1) APTT 34.3 H (21.0-31.0) Seconds PTT Ratio 1.3 Sample Site POC pH (7.35-7.45) POC pCO2 (35-46) mmHg POC pO2 (80-95) mmHg POC HCO3 (19-24) alondra/L POC Base Excess (-9-1.8) alondar/L ABG pH (Temp Correct) (7.35-7.45) ABG pCO2 (Temp Corrct (35-46) mmHg POC ABG pO2 at Pt Temp POC ABG O2 Sat (90-95) % [place] Test O2 Delivery Device POC Sodium (135-144) mmol/L Sodium 136 (136-145) mmol/L POC Potassium (3.3-5.0) mmol/L Potassium 4.0 (3.5-5.1) mmol/L POC Chloride (101-112) mmol/L Chloride 100 (98-107) mmol/L Carbon Dioxide 33 H (21-32) mmol/L POC Total CO2 (24-31) mmol/L Anion Gap 3.0 (3-11) POC Anion Gap (16-25) mmol/L POC BUN (7-18) mg/dl BUN 15 (7-18) mg/dl Creatinine 0.85 (0.6-1.4) mg/dl POC Creatinine (0.6-1.3) mg/dl Est Cr Clr Drug Dosing 121.0 ml/min Est GFR ( Amer) 103.0 ml/min Est GFR (Non-Af Amer) 88.9 ml/min BUN/Creatinine Ratio 17.4 (10-20) Glucose 172 H (70-99) mg/dl POC Glucose (70-99) mg/dl POC Glucose (other) (70-99) mg/dl Lactate (0.4-2.0) mmol/L Calcium 9.3 (8.5-10.1) mg/dl POC Ioniz Calcium Gurjit (1.12-1.32) mmol/l Magnesium 2.4 (1.8-2.4) mg/dl Total Bilirubin 0.2 (0.2-1) mg/dl AST 13 L (15-37) U/L ALT 9 L (12-78) U/L Alkaline Phosphatase 92 (45-117) U/L Troponin I < 0.015 (0-0.045) ng/ml C-Reactive Protein (0-0.29) mg/dl Total Protein 7.2 (6.4-8.2) gm/dl Albumin 1.8 L (3.4-5.0) gm/dl Globulin 5.4 H (2.5-4.0) gm/dl Albumin/Globulin Ratio 0.3 L (0.9-2) Lipase (73-393) U/L Procalcitonin (0-0.5) ng/ml Urine Color Urine Appearance (Clear) Urine pH (4.5-7.5) Ur Specific [place] (1.000-1.030) Urine Protein (Negative) Urine Glucose (UA) (Negative) Urine Ketones (Negative) Urine Blood (Negative) Urine Nitrite (Negative) Urine Bilirubin (Negative) Urine Urobilinogen (Negative) Ur Leukocyte Esterase (Negative) Urine WBC (Auto) (0-5) /hpf Urine RBC (Auto) (0-4) /hpf U Hyaline Cast (Auto) (0-5) /lpf U Epithel Cells (Auto) (0-5) /lpf Urine Bacteria (Auto) (Negative) Ur Renal Epithelial Cell Urine Crystals (None Prsent) Calcium Oxalate Crystal (None Prsent) Urine Yeast Theophylline (10-20) mcg/ml COVID-19 Eval Order SARS-CoV-2 (PCR) (Negative)
[2021-08-01 17:04] LABS: Base Excess ABG 6.6 mEq/L (-9-1.8); HCO3 ABG 34 mmol/L (19-24); Oxygen Saturation ABG 86.8 % (90-95); PCO2 ABG 63 mmHg (35-46); PO2 ABG 52 mmHg (80-95); pH ABG 7.35 (7.35-7.45)
[2021-08-01 17:05] LABS: Allen Test Pos (Pos)
[2021-08-01] MEDS: POTASSIUM CHLORIDE CRTAB 20 MEQ TABCR PO SCH (20:06)
[2021-08-01] MEDS: cefTRIAXone SODIUM 2,000 MG in DEXTROSE 5% 50 ML IV SCH (21:32)
[2021-08-02] MEDS: DAPTOmycin 425 MG in SYRINGE 0 ML IV SCH (05:30)
[2021-08-02 07:07] LABS: Eosinophils # (auto) 0.19 K/uL (0-0.5); Eosinophils % (auto) 1.8 %; Hematocrit (blood only) 32.8 % (42-52); Hemoglobin 9.3 g/dL (14.0-18.0); Immature Granulocytes # (auto) 0.12 K/uL (0.00-0.02); Immature Granulocytes % (auto) 1.2 %; Lymphocytes # (auto) 1.11 K/uL (1.2-3.4); Lymphocytes % (auto) 10.7 %; Mean Corpuscular Hemoglobin 25.9 pg (25-34); Mean Corpuscular Hgb Conc 28.4 g/dL (32-36); Mean Corpuscular Volume 91.4 fL (80-100); Mean Platelet Volume 9.6 fL (7.4-10.4); Monocytes # (auto) 0.76 K/uL (0.11-0.59); Monocytes % (auto) 7.4 %; Neutrophils # (auto) 8.15 K/uL (1.4-6.5); Neutrophils % (auto) 78.9 %; Platelet Count 361 K/uL (130-400); RDW Coefficient of Variation 17.2 % (11.5-14.5); RDW Standard Deviation 57.8 fL (36.4-46.3); Red Blood Count 3.59 M/uL (4.7-6.1); White Blood Count 10.33 K/uL (4.8-10.8)
[2021-08-02] MEDS: Ipratropium HFA Inhaler (Combivent Respimat P&T Subs) INH SCH ×4 (07:17→20:23)
[2021-08-02] MEDS: Albuterol HFA 8 GM Inhaler (Combivent Respimat P&T Subs) INH SCH ×4 (07:17→20:23)
[2021-08-02 07:29] LABS: BUN Creatinine Ratio 25.1 (10-20); Calcium 9.9 mg/dl (8.5-10.1); Est GFR (African American) 113.6 ml/min; Magnesium 2.4 mg/dl (1.8-2.4); Potassium 4.5 mmol/L (3.5-5.1)
[2021-08-02] MEDS: INSULIN ASPART 100 UNITS/ML 3 ML PEN SC SCH ×4 (08:10→20:42)
[2021-08-02] MEDS: HEPARIN SOD 5,000 UNIT/0.5 ML VIAL SQ SCH ×2 (08:11→21:09)
[2021-08-02] MEDS: FUROSEMIDE 20 MG in SYRINGE 0 ML IV SCH (08:11)
[2021-08-02] MEDS: SERTRALINE HCL 100 MG TABLET PO SCH (08:12)
[2021-08-02] MEDS: AZITHROMYCIN 250 MG TAB PO SCH (08:12)
[2021-08-02] MEDS: METOPROLOL TARTRATE 25 MG TAB PO SCH ×2 (08:12→21:09)
[2021-08-02] MEDS: DONEPEZIL HCL 5 MG TAB PO SCH (08:12)
[2021-08-02] MEDS: POTASSIUM CHLORIDE CRTAB 20 MEQ TABCR PO SCH ×3 (08:12→20:45)
[2021-08-02] MEDS: HYDROmorphone INJ 0.5 MG/0.5 ML SYR IV PRN ×2 (08:16→17:34)
--- NOTE | 2021-08-02 10:54 | Surgery Progress Note ---
Date of Service August 02, 2021 Assessment & Plan (1) Abscess: Plan: Leukocytosis resolved afebrile moderate pain at I&D site but improving slowly wound care nurse consulted Plan: continue pain management as needed await wound care nurse consult for wound care recommendations Dr. Fung has seen patient on rounds and agrees with above. Admission and Anticipated Discharge Date Admission Date: July 31, 2021 Subjective still having back pain but it is better than before the procedure tolerating diet Physical Exam Constitutional: + morbidly obese; no acute distress and not ill appearing Respiratory: normal respiratory effort; no respiratory distress, no labored breathing and no retractions Skin: no rashes, warm and dry Wound not inspected as wound care nurse consulted for further management Psychiatric: Orientation: alert and oriented x 3 Results & Data ([facility]) Vital Signs (Past 12 Hours) Vital Signs Temp Pulse Pulse Resp BP Pulse Ox 08/02/21 08:00 36.6 C 90 20 115/63 94 08/02/21 07:38 80 08/02/21 07:22 79 20 94 08/02/21 03:16 37.0 C 85 20 107/58 L 94 08/02/21 02:30 95 H 21 92 08/01/21 23:59 86 Laboratory Results 08/02/21 08/02/21 08/02/21 Range/Units 07:35 06:15 06:15 WBC 10.33 (4.8-10.8) K/uL RBC 3.59 L (4.7-6.1) M/uL Hgb 9.3 L (14.0-18.0) g/dL Hct 32.8 L (42-52) % MCV 91.4 (80-100) fL MCH 25.9 (25-34) pg MCHC 28.4 L (32-36) g/dL RDW Std Deviation 57.8 H (36.4-46.3) fL RDW Coeff of Raquel 17.2 H (11.5-14.5) % Plt Count 361 (130-400) K/uL MPV 9.6 (7.4-10.4) fL Immature Gran % (Auto) 1.2 % Neut % (Auto) 78.9 % Lymph % (Auto) 10.7 % Prentiss % (Auto) 7.4 % Eos % (Auto) 1.8 % Baso % (Auto) 0.0 % Neut # (Auto) 8.15 H (1.4-6.5) K/uL Lymph # (Auto) 1.11 L (1.2-3.4) K/uL Prentiss # (Auto) 0.76 H (0.11-0.59) K/uL Eos # (Auto) 0.19 (0-0.5) K/uL Baso # (Auto) 0.00 (0-0.2) K/uL Immature Gran # (Auto) 0.12 H (0.00-0.02) K/uL ABG pH (7.35-7.45) ABG pCO2 (35-46) mmHg ABG pO2 (80-95) mmHg ABG HCO3 (19-24) mmol/L ABG O2 Saturation (90-95) % ABG Base Excess (-9-1.8) mEq/L Vernon Test (Pos) Barometric Pressure mm/Hg Oxygen Given Sodium 138 (136-145) mmol/L Potassium 4.5 D (3.5-5.1) mmol/L Chloride 100 (98-107) mmol/L Carbon Dioxide 37 H (21-32) mmol/L Anion Gap 1.0 L (3-11) BUN 17 (7-18) mg/dl Creatinine 0.67 (0.6-1.4) mg/dl Est Cr Clr Drug Dosing 151.0 ml/min Est GFR ( Amer) 113.6 ml/min Est GFR (Non-Af Amer) 98.0 ml/min BUN/Creatinine Ratio 25.1 H (10-20) Glucose 95 (70-99) mg/dl POC Glucose 92 (70-99) mg/dl Calcium 9.9 (8.5-10.1) mg/dl Magnesium 2.4 (1.8-2.4) mg/dl Total Creatine Kinase 11 L (39-308) U/L 08/01/21 08/01/21 08/01/21 Range/Units 20:00 16:42 16:40 WBC (4.8-10.8) K/uL RBC (4.7-6.1) M/uL Hgb (14.0-18.0) g/dL Hct (42-52) % MCV (80-100) fL MCH (25-34) pg MCHC (32-36) g/dL RDW Std Deviation (36.4-46.3) fL RDW Coeff of Raquel (11.5-14.5) % Plt Count (130-400) K/uL MPV (7.4-10.4) fL Immature Gran % (Auto) % Neut % (Auto) % Lymph % (Auto) % Prentiss % (Auto) % Eos % (Auto) % Baso % (Auto) % Neut # (Auto) (1.4-6.5) K/uL Lymph # (Auto) (1.2-3.4) K/uL Prentiss # (Auto) (0.11-0.59) K/uL Eos # (Auto) (0-0.5) K/uL Baso # (Auto) (0-0.2) K/uL Immature Gran # (Auto) (0.00-0.02) K/uL ABG pH 7.35 (7.35-7.45) ABG pCO2 63 H (35-46) mmHg ABG pO2 52 L (80-95) mmHg ABG HCO3 34 H (19-24) mmol/L ABG O2 Saturation 86.8 L (90-95) % ABG Base Excess 6.6 H (-9-1.8) mEq/L Vernon Test Pos (Pos) Barometric Pressure 728.1 mm/Hg Oxygen Given 3 L Sodium (136-145) mmol/L Potassium (3.5-5.1) mmol/L Chloride (98-107) mmol/L Carbon Dioxide (21-32) mmol/L Anion Gap (3-11) BUN (7-18) mg/dl Creatinine (0.6-1.4) mg/dl Est Cr Clr Drug Dosing ml/min Est GFR ( Amer) ml/min Est GFR (Non-Af Amer) ml/min BUN/Creatinine Ratio (10-20) Glucose (70-99) mg/dl POC Glucose 134 H 113 H (70-99) mg/dl Calcium (8.5-10.1) mg/dl Magnesium (1.8-2.4) mg/dl Total Creatine Kinase (39-308) U/L 08/01/21 Range/Units 11:16 WBC (4.8-10.8) K/uL RBC (4.7-6.1) M/uL Hgb (14.0-18.0) g/dL Hct (42-52) % MCV (80-100) fL MCH (25-34) pg MCHC (32-36) g/dL RDW Std Deviation (36.4-46.3) fL RDW Coeff of Raquel (11.5-14.5) % Plt Count (130-400) K/uL MPV (7.4-10.4) fL Immature Gran % (Auto) % Neut % (Auto) % Lymph % (Auto) % Prentiss % (Auto) % Eos % (Auto) % Baso % (Auto) % Neut # (Auto) (1.4-6.5) K/uL Lymph # (Auto) (1.2-3.4) K/uL Prentiss # (Auto) (0.11-0.59) K/uL Eos # (Auto) (0-0.5) K/uL Baso # (Auto) (0-0.2) K/uL Immature Gran # (Auto) (0.00-0.02) K/uL ABG pH (7.35-7.45) ABG pCO2 (35-46) mmHg ABG pO2 (80-95) mmHg ABG HCO3 (19-24) mmol/L ABG O2 Saturation (90-95) % ABG Base Excess (-9-1.8) mEq/L Vernon Test (Pos) Barometric Pressure mm/Hg Oxygen Given Sodium (136-145) mmol/L Potassium (3.5-5.1) mmol/L Chloride (98-107) mmol/L Carbon Dioxide (21-32) mmol/L Anion Gap (3-11) BUN (7-18) mg/dl Creatinine (0.6-1.4) mg/dl Est Cr Clr Drug Dosing ml/min Est GFR ( Amer) ml/min Est GFR (Non-Af Amer) ml/min BUN/Creatinine Ratio (10-20) Glucose (70-99) mg/dl POC Glucose 127 H (70-99) mg/dl Calcium (8.5-10.1) mg/dl Magnesium (1.8-2.4) mg/dl Total Creatine Kinase (39-308) U/L
--- NOTE | 2021-08-02 13:54 | Hospitalist Progress Note ---
Date of Service August 02, 2021 Assessment & Plan (1) Abscess: Plan: Right low back abscess Drained and irrigated 07/31 by surgical team Leukocytosis normalized 08/02 Hemoglobin stable, 9.3 on 08/02 Wound culture positive for gram-negative bacilli pending speciation - BID wet to dry dressing - Continue Vancomycin - pharmacy to dose - Continue Rocephin daily 3 x 7 cm abscess with purulent drainage and necrotic overlying skin, anticipate will require additional debridement. Surgery notified (2) Sepsis: Plan: SIRS 2, Qsofa-2 On admission, resolved Leukocytosis normalized, lactate negative, pro-John negative Fluids discontinued Source control as above Antibiotics as above (3) Acute hypoxemic respiratory failure: Plan: Improved CXR: Initial read as patient with right greater than left opacities, increased pleural effusions. On review cardiomegaly without congestive failure, although bibasilar consolidations appreciated. -Patient progressed from BiPAP to nasal cannula, continue Azithromycin x5 days and continue incentive cain/flutter & follow clinically BiPAP as needed (4) HLD (hyperlipidemia): Plan: Atorvastatin 40mg daily (5) Seizure: Plan: Continue with Depakote (6) Obstructive lung disease: Plan: Past smoker quit in 2012 per - Continue albuterol - Continue Theophylline - Serum level normal - Azithro as noted above (7) HTN (hypertension): Plan: Continue metoprolol as long as remains normotensive (8) Diabetes: Plan: Continue Lantus - Aspart sliding scale- CF 20, ratio 1:9 (9) Dementia: Plan: Cotninue with aricept (10) Renal stones: Plan: Oxalate stone in urine- noted on CT scan- numerous - noted with right sided hydronephrosis- with possible UPJ obstruction - Urology consulted - no other images available for comparison (11) Abnormal CT scan: Plan: Mild non-specific infiltration around pancreatic tail - lipase not elevated - no abdominal pain or other symptoms consistent with acute pancreatitis - follow clinically Plan: DVT prophylaxis: Heparin 5000 every 12 Admission and Anticipated Discharge Date Admission Date: July 31, 2021 Subjective Seen at bedside this morning. Continues to have back, unchanged from prior. Remains on nasal cannula with some shortness of breath with movement, comfortable at rest. No chest pain/chest pressure today. Review of Systems Review of Systems: 10 point review of systems negative except as noted above Physical Exam Physical Exam: General: A&Ox3. NAD. Cooperative. Appears in pain/uncomfortable. HEENT: Atraumatic, normocephalic. Visual acuity and hearing grossly intact. Pulm: Managed, no overt wheezes/rales. Symmetrical chest rise. No increase work of breathing. No respiratory distress. Cardiac: RRR, -mrg. Radial pulses intact and symmetrical. Back: Right lower back with approximately 3 x 7 cm abscess with purulent drainage, and overlying necrosis. Abdominal: Nontender, nondistended, soft. BS present. Results & Data Results & Data ([facility]) Vital Signs (Past 12 Hours) Vital Signs Temp Pulse Pulse Resp BP Pulse Ox 08/02/21 11:30 36.7 C 93 H 20 108/69 98 08/02/21 11:05 89 20 93 08/02/21 08:00 36.6 C 90 20 115/63 94 08/02/21 07:38 80 08/02/21 07:22 79 20 94 08/02/21 03:16 37.0 C 85 20 107/58 L 94 08/02/21 02:30 95 H 21 92 PG Care Time/CCT Total # of Minutes Spent Total Time Spent with Patient: Total time spent is greater than 50% in coordination of care (as documented) at patient's floor/unit and/or counseling patient: Coding Level of Care Code 31555 Subseq Hosp Care Lvl 3 Diagnoses Abscess L02.91 Sepsis A41.9 Acute hypoxemic respiratory failure J96.01 HLD (hyperlipidemia) E78.5 Seizure R56.9 Obstructive lung disease J44.9 HTN (hypertension) I10 Diabetes E11.9 Dementia F03.90 Renal stones N20.[address] scan R93.89
--- NOTE | 2021-08-02 15:03 | Surgery Progress Note ---
Date of Service August 02, 2021 Assessment & Plan (1) Abscess: Plan: will set up for I&D in the OR tomorrow. NPO past midnight tonight. all questions answered, agreeable to proceed. Admission and Anticipated Discharge Date Admission Date: July 31, 2021 Subjective doing ok; still with pain. earlier had some purulent discharge from the wound Physical Exam Constitutional: WD/WN, vitals as above Eyes: PERRL, conjunctivae normal, anicteric sclerae Neck: trachea midline, no thyromegaly Musculoskeletal: Extremities: no cyanosis and no clubbing Skin: no rashes, warm and dry Results & Data ([facility]) Vital Signs (Past 12 Hours) Vital Signs Temp Pulse Pulse Resp BP Pulse Ox 08/02/21 14:47 90 19 94 08/02/21 11:30 36.7 C 93 H 20 108/69 98 08/02/21 11:05 89 20 93 08/02/21 08:00 36.6 C 90 20 115/63 94 08/02/21 07:38 80 08/02/21 07:22 79 20 94 08/02/21 03:16 37.0 C 85 20 107/58 L 94
[2021-08-02] MEDS: INSULIN GLARGINE SOLOSTAR 100 UNITS/ML 3 ML PEN SQ SCH (20:42)
[2021-08-02] MEDS: ATORVASTATIN 40 MG TAB PO SCH (21:08)
[2021-08-02] MEDS: QUEtiapine FUMARATE 25 MG TABLET PO SCH (21:09)
[2021-08-02] MEDS: cefTRIAXone SODIUM 2,000 MG in DEXTROSE 5% 50 ML IV SCH (22:00)
[2021-08-02] MEDS ORDERED: guaiFENesin SUGAR FREE 100 MG/5 ML UDC PO PRN (22:08)
[2021-08-03] MEDS: DAPTOmycin 425 MG in SYRINGE 0 ML IV SCH (05:51)
[2021-08-03] MEDS: Albuterol HFA 8 GM Inhaler (Combivent Respimat P&T Subs) INH SCH ×4 (07:30→19:15)
[2021-08-03] MEDS: Ipratropium HFA Inhaler (Combivent Respimat P&T Subs) INH SCH ×4 (07:30→19:15)
[2021-08-03 07:36] LABS: Basophils # (auto) 0.01 K/uL (0-0.2); Basophils % (auto) 0.1 %; Eosinophils # (auto) 0.24 K/uL (0-0.5); Eosinophils % (auto) 2.8 %; Hematocrit (blood only) 32.7 % (42-52); Hemoglobin 9.2 g/dL (14.0-18.0); Immature Granulocytes # (auto) 0.12 K/uL (0.00-0.02); Immature Granulocytes % (auto) 1.4 %; Lymphocytes # (auto) 1.42 K/uL (1.2-3.4); Lymphocytes % (auto) 16.8 %; Mean Corpuscular Hemoglobin 25.6 pg (25-34); Mean Corpuscular Hgb Conc 28.1 g/dL (32-36); Mean Corpuscular Volume 90.8 fL (80-100); Mean Platelet Volume 10.2 fL (7.4-10.4); Monocytes # (auto) 0.74 K/uL (0.11-0.59); Monocytes % (auto) 8.8 %; Neutrophils # (auto) 5.92 K/uL (1.4-6.5); Neutrophils % (auto) 70.1 %; Nucleated RBC # (auto) 0.02 K/uL (0-0); Nucleated RBC % (auto) 0.2 %; Platelet Count 387 K/uL (130-400); RDW Coefficient of Variation 16.9 % (11.5-14.5); RDW Standard Deviation 55.8 fL (36.4-46.3); White Blood Count 8.45 K/uL (4.8-10.8)
[2021-08-03 08:05] LABS: BUN Creatinine Ratio 32.4 (10-20); Calcium 9.9 mg/dl (8.5-10.1); Creatinine Clr Calc Pharmacy 166.3 ml/min; Est GFR (African American) 118.1 ml/min; Est GFR (Non-African American) 101.9 ml/min; Magnesium 2.7 mg/dl (1.8-2.4); Potassium 3.9 mmol/L (3.5-5.1)
[2021-08-03] MEDS: SERTRALINE HCL 100 MG TABLET PO SCH (08:14)
[2021-08-03] MEDS: FUROSEMIDE 20 MG in SYRINGE 0 ML IV SCH (08:14)
[2021-08-03] MEDS: AZITHROMYCIN 250 MG TAB PO SCH (08:15)
[2021-08-03] MEDS: DONEPEZIL HCL 5 MG TAB PO SCH (08:15)
[2021-08-03] MEDS: INSULIN ASPART 100 UNITS/ML 3 ML PEN SC SCH ×4 (08:21→20:10)
[2021-08-03] MEDS: HEPARIN SOD 5,000 UNIT/0.5 ML VIAL SQ SCH ×2 (08:24→20:03)
[2021-08-03] MEDS: METOPROLOL TARTRATE 25 MG TAB PO SCH ×2 (09:03→20:02)
[2021-08-03] MEDS ORDERED: ONDANSETRON INJ 2 MG/ML 2 ML VIAL ONE (11:09)
[2021-08-03] MEDS ORDERED: fentaNYL citrate 100 MCG/2 ML VIAL ONE (11:09)
[2021-08-03] MEDS ORDERED: PROPOFOL IV EMULSION 10 MG/ML 20 ML VIAL IV ONE (11:09)
[2021-08-03] MEDS ORDERED: LIDOCAINE 2% 2 ML VIAL/AMP(20MG/ML) INFIL ONE (11:09)
[2021-08-03] MEDS ORDERED: EPINEPHrine INJ 1 MG/ML AMP ONE (12:28)
[2021-08-03] MEDS ORDERED: BUPIVACAINE 0.25% 30 ML VIAL ONE (12:28)
[2021-08-03] MEDS: HYDROmorphone INJ 0.5 MG/0.5 ML SYR IV PRN ×2 (12:33→18:27)
[2021-08-03] MEDS ORDERED: ALBUT/IPRATROP 3MG/0.5MG NEB 3 ML VIAL NEB STA (13:24)
--- NOTE | 2021-08-03 13:31 | Anesthesiology Consultation ---
Date of Service August 03, 2021 Assessment & Plan (1) Encounter for pre-operative examination: Chart Review Chart Review: Acceptable Risk for Surgery and Patient NOT seen in Pre Admission Testing Consults Requested none History Surgery Operation Date: 08/03/21 08:30 Proposed Procedures p Back Abscess Debridement - Jeremy Fung MD Height/Weight Height: 5 ft 11 in Weight: 144.2 kg Allergies Allergy/AdvReac Type Severity Reaction Status Date / Time ketorolac [From Toradol] Allergy Unknown Unknown Verified 07/31/21 17:53 Medications Home Medications Medication Instructions Recorded Confirmed Last Taken Lactobacillus Probiotic 1 tab PO QAM 07/31/21 07/31/21 Unknown acetaminophen 325 mg tablet 650 mg PO Q4 PRN MDD 3g 07/31/21 07/31/21 Unknown acetazolamide 500 mg 500 mg PO DAILY 07/31/21 07/31/21 Unknown capsule,extended release albuterol sulfate 90 mcg/actuation 1 puff INHALATION Q4 PRN 07/31/21 07/31/21 Unknown aerosol inhaler aspirin 81 mg chewable tablet 81 mg PO DAILY 07/31/21 07/31/21 Unknown atorvastatin 40 mg tablet 40 mg PO HS 07/31/21 07/31/21 Unknown cholecalciferol (vitamin D3) 25 25 mcg PO DAILY 07/31/21 07/31/21 Unknown mcg (1,000 unit) tablet divalproex 250 mg tablet,delayed 250 mg PO BID 07/31/21 07/31/21 Unknown release donepezil 5 mg tablet (Aricept) 5 mg PO DAILY 07/31/21 07/31/21 Unknown guaifenesin 600 mg tablet, 600 mg PO Q12H 07/31/21 07/31/21 Unknown extended release 12 hr insulin glargine 100 unit/mL (3 35 unit SUBCUT HS 07/31/21 07/31/21 Unknown mL) subcutaneous pen (Lantus Solostar U-100 Insulin) insulin regular human 100 unit/mL 1 sliding scale dose SUBCUT ACHS 07/31/21 07/31/21 Unknown injection solution (Humulin R Regular U-100 Insulin) ipratropium 18 mcg-albuterol 103 1 spray INHALATION QID 07/31/21 07/31/21 Unknown mcg/actuation aerosol inhaler metoprolol tartrate 25 mg tablet 12.5 mg PO BID 07/31/21 07/31/21 Unknown pediatric multivitamin 1 tab PO DAILY 07/31/21 07/31/21 Unknown potassium chloride 20 mEq 20 meq PO WM 07/31/21 07/31/21 Unknown tablet,extended release quetiapine 50 mg tablet (Seroquel) 50 mg PO HS 07/31/21 07/31/21 Unknown sertraline 100 mg tablet 100 mg PO DAILY 07/31/21 07/31/21 Unknown sulfamethoxazole 800 1 tab PO Q12H 07/31/21 07/31/21 Unknown mg-trimethoprim 160 mg tablet (Bactrim DS) terazosin 2 mg capsule 2 mg PO DAILY 07/31/21 07/31/21 Unknown theophylline 600 mg 600 mg PO DAILY 07/31/21 07/31/21 Unknown tablet,extended release 24 hr Active Medications Generic Name Dose Route Start Last Admin Trade Name Freq PRN Reason Stop Dose Admin Acetaminophen 650 mg 08/01/21 00:23 08/01/21 00:57 Acetaminophen 325 Mg Tab PO 08/31/21 00:22 650 mg Q4 PRN Administration Fever Or Pain Albuterol 1 puffs 08/01/21 07:00 08/03/21 10:52 Albuterol Hfa 8 Gm Inhaler (Combivent Respimat P&T Subs) INH 08/31/21 06:59 1 puffs QIDR JENNIFER Administration Atorvastatin Calcium 40 mg 08/01/21 00:23 08/02/21 21:08 Atorvastatin 40 Mg Tab PO 08/31/21 00:22 40 mg HS JENNIFER Administration Azithromycin 250 mg 08/02/21 09:00 08/03/21 08:15 Azithromycin 250 Mg Tab PO 08/05/21 09:01 250 mg QAM JENNIFER Administration Donepezil HCl 5 mg 08/01/21 09:00 08/03/21 08:15 Donepezil Hcl 5 Mg Tab PO 08/31/21 08:59 5 mg DAILY JENNIFER Administration Heparin Sodium (Porcine) 5,000 units 08/01/21 00:23 08/03/21 08:24 Heparin Sod 5,000 Unit/0.5 Ml Vial SQ 08/31/21 00:22 Not Given Q12 JENNIFER Hydromorphone HCl 0.5 mg 08/01/21 00:23 08/03/21 12:33 Hydromorphone Inj 0.5 Mg/0.5 Ml Syr IV 08/15/21 00:22 0.5 mg Q6H PRN Administration moderate to severe Pain Ceftriaxone Sodium 2,000 mg/ 70 mls @ 100 mls/hr 08/01/21 22:00 08/02/21 23:00 Dextrose IV 08/08/21 21:59 Infused Q24H JENNIFER Infusion Protocol Daptomycin 425 mg/ Syringe 8.5 mls @ 4.25 mls/min 08/01/21 06:00 08/03/21 05:51 IV 08/08/21 05:59 4.25 mls/min Q24H JENNIFER Administration Protocol Furosemide 20 mg/ Syringe 2 mls @ 4 mls/min 08/01/21 14:30 08/03/21 08:14 IV 08/31/21 14:29 4 mls/min DAILY JENNIFER Administration Insulin Aspart 0 units 08/01/21 00:23 08/03/21 11:50 Insulin Aspart 100 Units/Ml 3 Ml Pen SC 08/31/21 00:22 Not Given ACHS JENNIFER Insulin Glargine 35 units 08/01/21 00:23 08/02/21 20:42 Insulin Glargine Solostar 100 Units/Ml 3 Ml Pen SQ 08/31/21 00:22 35 units HS JENNIFER Administration Ipratropium [place] 1 puffs 08/01/21 07:00 08/03/21 10:52 Ipratropium Hfa Inhaler (Combivent Respimat P&T Subs) INH 08/31/21 06:59 1 puffs QIDR JENNIFER Administration Metoprolol Tartrate 12.5 mg 08/01/21 00:23 08/03/21 09:03 Metoprolol Tartrate 25 Mg Tab PO 08/31/21 00:22 12.5 mg BID JENNIFER Administration Quetiapine Fumarate 50 mg 08/01/21 00:23 08/02/21 21:09 Quetiapine Fumarate 25 Mg Tablet PO 08/31/21 00:22 50 mg HS JENNIFER Administration Sertraline HCl 100 mg 08/01/21 09:00 08/03/21 08:14 Sertraline Hcl 100 Mg Tablet PO 08/31/21 08:59 100 mg DAILY JENNIFER Administration NPO Date Last Intake of Fluids: 08/02/21 Time Last Intake of Fluids: 20:00 Date Last Intake of Solids: 08/02/21 Time Last Intake of Solids: 20:00 Past Medical History Medical History CHF (congestive heart failure) Dementia Diabetes HLD (hyperlipidemia) HTN (hypertension) Hydronephrosis of right kidney No pertinent family history Obesity Obstructive lung disease Smoker Exercise / Class Metabolic Activity III < 4 Walking/Shop/Light housework Past Surgical History Surgical History No pertinent past surgical history Past Anesthesia History No Hx of Anesthesia Complications and No Family Hx of Anesthesia Complications History of PONV No Hx of PONV and No Hx of Motion Sickness Social History Do You Dip or Chew Tobacco: No Hx Alcohol Use: No Hx Substance Use: No Physical Exam Vital Signs Last Vital Signs Temp 36.8 C 08/03/21 13:17 Pulse 76 08/03/21 13:17 Resp 18 08/03/21 13:17 BP 112/58 L 08/03/21 13:17 Pulse Ox 97 08/03/21 13:17 Testing Laboratory Results 08/03/21 07:16 08/03/21 07:16 PT 11.7 Seconds (9.0-12.0) 07/31/21 16:56 INR 1.2 (0.9-1.1) H 07/31/21 16:56 APTT 34.3 Seconds (21.0-31.0) H 07/31/21 16:56 Urine Color Yellow 07/31/21 20:38 Urine Appearance Cloudy (Clear) A 07/31/21 20:38 Urine pH 6.0 (4.5-7.5) 07/31/21 20:38 Ur Specific [place] > 1.045 (1.000-1.030) H 07/31/21 20:38 Urine Protein Negative (Negative) 07/31/21 20:38 Urine Glucose (UA) Negative (Negative) 07/31/21 20:38 Urine Ketones Negative (Negative) 07/31/21 20:38 Urine Nitrite Negative (Negative) 07/31/21 20:38 Ur Leukocyte Esterase Negative (Negative) 07/31/21 20:38 Urine WBC (Auto) 1-5 /hpf (0-5) 07/31/21 20:38 Urine RBC (Auto) 0-4 /hpf (0-4) 07/31/21 20:38 U Hyaline Cast (Auto) 1-5 /lpf (0-5) 07/31/21 20:38 U Epithel Cells (Auto) >30 /lpf (0-5) H 07/31/21 20:38 Urine Bacteria (Auto) Negative (Negative) 07/31/21 20:38 07/31/21 21:40 Gram Stain - Final Back Deep Wound Culture - Preliminary Gram negative bacilli Anaerobic gram positive cocci 07/31/21 19:50 Aerobic Blood Culture - Preliminary Blood No growth in Aerobic bottle after 48 hours. Anaerobic Blood Culture - Preliminary No growth in Anaerobic bottle after 48 hours. 07/31/21 16:56 Aerobic Blood Culture - Preliminary Blood No growth in Aerobic bottle after 48 hours. Anaerobic Blood Culture - Preliminary No growth in Anaerobic bottle after 48 hours. 07/31/21 20:38 Urine Culture - Final Urine,Clean Catch Three types of organisms present, all high counts probable skin jo ann. No further identifications or sensitivities to follow. 08/03/21 08/03/21 11:25 05:48 POC Glucose 123 H 107 H Electrocardiogram Date: 07/31/21 DICTATED BY: Bladimir Mcduffie MD Test Reason : Blood Pressure : / mmHG Vent. Rate : 135 BPM Atrial Rate : 135 BPM P-R Int : 188 ms QRS Dur : 084 ms QT Int : 234 ms P-R-T Axes : 000 091 118 degrees QTc Int : 351 ms Poor data quality, interpretation may be adversely affected Sinus tachycardia Rightward axis Low voltage QRS Nonspecific ST and T wave abnormality Abnormal ECG No previous ECGs available Confirmed by Bladimir Mcduffie ([id number]) on 08/01/2021 3:50:17 PM Chest X-Ray Date: 07/31/21 SINGLE VIEW CHEST CLINICAL HISTORY: Hypoxia. FINDINGS: An AP, portable, upright chest radiograph is compared to study dated 07/31/2021. The heart is enlarged noting atherosclerotic calcification of the thoracic aorta. The pulmonary vasculature is noncongested. There are small pleural effusions with bibasilar consolidation. These a modestly enlarged as compared to yesterday. No pneumothorax is seen. The skeletal structures are osteopenic. The bony thorax is grossly intact. IMPRESSION: 1. Cardiomegaly without radiographic evidence of congestive failure. 2. Small pleural effusions with bibasilar consolidation. These appear modestly increased in size from yesterday.
[2021-08-03] MEDS ORDERED: fentaNYL citrate 100 MCG/2 ML VIAL IV PRN (13:35)
[2021-08-03] MEDS ORDERED: ONDANSETRON INJ 2 MG/ML 2 ML VIAL IV PRN (13:35)
[2021-08-03] MEDS ORDERED: ePHEDrine sulfate 50 MG/ML AMP IV PRN (13:35)
[2021-08-03] MEDS ORDERED: ATROPINE SULFATE 0.1 MG/ML 10ML SYR IV PRN (13:35)
--- NOTE | 2021-08-03 13:46 | Hospitalist Progress Note ---
Date of Service August 03, 2021 Assessment & Plan (1) Abscess: Plan: Right low back abscess Drained and irrigated 07/31 by surgical team Leukocytosis normalized 08/02 Hemoglobin stable Wound culture positive for gram-negative bacilli pending speciation and anaero bic GPC pending speciation. - BID wet to dry dressing - Continue Vancomycin - Convert rocephin to Unasyn 3g q6h for anaerobic coverage given WC 3 x 7 cm abscess with purulent drainage and necrotic overlying skin, anticipate debridement in OR today (2) Sepsis: Plan: SIRS 2, Qsofa-2 On admission, resolved Leukocytosis normalized, lactate negative, pro-John negative Fluids discontinued Source control as above Antibiotics as above (3) Acute hypoxemic respiratory failure: Plan: Improved CXR: Initial read as patient with right greater than left opacities, increased pleural effusions. On review cardiomegaly without congestive failure, although bibasilar consolidations appreciated. -Patient progressed from BiPAP to nasal cannula, continue Azithromycin x5 days and continue incentive cain/flutter & follow clinically BiPAP as needed (4) HLD (hyperlipidemia): Plan: Atorvastatin 40mg daily (5) Seizure: Plan: Continue with Depakote (6) Obstructive lung disease: Plan: Past smoker quit in 2012 per - Continue albuterol - Continue Theophylline - Serum level normal - Azithro as noted above (7) HTN (hypertension): Plan: Continue metoprolol as long as remains normotensive (8) Diabetes: Plan: Continue Lantus - Aspart sliding scale- CF 20, ratio 1:9 (9) Dementia: Plan: Cotninue with aricept (10) Renal stones: Plan: Oxalate stone in urine- noted on CT scan- numerous - noted with right sided hydronephrosis- with possible UPJ obstruction - Urology consulted. Do not recommend any acute intervention, manage chronic hy jan as outpatient, continue antibiotics, maintain Valerio catheter at this time and consider voiding trial when optimized. - IVFM as indicated (11) Abnormal CT scan: Plan: Mild non-specific infiltration around pancreatic tail - lipase pending - no abdominal pain or other symptoms consistent with acute pancreatitis - follow clinically Admission and Anticipated Discharge Date Admission Date: July 31, 2021 Subjective Seen at bedside this morning. Patient reports he is tired, would like to go back to sleep. Expresses an understanding that he is scheduled for I&D in the OR today, no questions declines further exam wanting to sleep beforehand. Review of Systems Review of Systems: Patient denies chills, fever, endorses pain in his back unchanged from prior. Exam limited by patient fatigue and wanting to go back to sleep Physical Exam Physical Exam: General: A&Ox3. NAD. Cooperative. Somnolent, arouses easily to voice. HEENT: Atraumatic, normocephalic. Visual acuity and hearing intact. Pulm: Diminished without overt -wheezes, -rales, -rhonchi. Symmetrical chest rise. No increase work of breathing. No respiratory distress. Cardiac: RRR, -mrg. Radial pulses intact and symmetrical. Abdominal: Nontender, nondistended, soft. BS present. Back: Deferred, patient pending I&D and sleeping in bed Results & Data Results & Data ([facility]) Vital Signs (Past 12 Hours) Vital Signs Temp Pulse Pulse Pulse Resp BP Pulse Ox 08/03/21 13:17 36.8 C 76 18 112/58 L 97 08/03/21 11:15 36.8 C 68 18 123/79 96 08/03/21 10:53 86 20 97 08/03/21 08:17 36.6 C 70 20 114/72 94 08/03/21 07:42 68 08/03/21 07:31 79 20 91 08/03/21 03:43 36.4 C L 66 18 116/71 94 08/03/21 02:14 84 20 94 PG Care Time/CCT Total # of Minutes Spent Total Time Spent with Patient: Total time spent is greater than 50% in coordination of care (as documented) at patient's floor/unit and/or counseling patient: Coding Level of Care Code 76367 Subseq Hosp Care Lvl 3 Diagnoses Abscess L02.91 Sepsis A41.9 HLD (hyperlipidemia) E78.5 Seizure R56.9 Obstructive lung disease J44.9 HTN (hypertension) I10 Diabetes E11.9 Dementia F03.90 Renal stones N20.[address] scan R93.89 Acute hypoxemic respiratory failure J96.01
--- NOTE | 2021-08-03 14:02 | Surgery Progress Note ---
Date of Service August 03, 2021 Assessment & Plan (1) Abscess: Plan: will set up for I&D in the OR. all questions answered, agreeable to proceed. Admission and Anticipated Discharge Date Admission Date: July 31, 2021 Subjective still with pain at the wound; some drainage; denies fevers/nausea Physical Exam Constitutional: WD/WN, vitals as above Eyes: PERRL, conjunctivae normal, anicteric sclerae Neck: trachea midline, no thyromegaly Musculoskeletal: Extremities: no cyanosis and no clubbing Skin: no rashes, warm and dry Psychiatric: A+Ox3, euthymic affect Results & Data ([facility]) Vital Signs (Past 12 Hours) Vital Signs Temp Pulse Pulse Pulse Resp BP Pulse Ox 08/03/21 13:32 76 21 97 08/03/21 13:17 36.8 C 76 18 112/58 L 97 08/03/21 11:15 36.8 C 68 18 123/79 96 08/03/21 10:53 86 20 97 08/03/21 08:17 36.6 C 70 20 114/72 94 08/03/21 07:42 68 08/03/21 07:31 79 20 91 08/03/21 03:43 36.4 C L 66 18 116/71 94 08/03/21 02:14 84 20 94
--- NOTE | 2021-08-03 14:54 | Post Operative Brief Note ---
Immediate Post Op Note v1 Date of Surgery August 03, 2021 Pre & Post Diagnosis Operation Date: 08/03/21 08:30 Incision and debridement of right upper back abscess I identified the patient and participated in the time-out.: Yes Procedure Operation Date: 08/03/21 08:30 <No data on this case meets the specified criteria> Surgeon Jeremy Fung MD Grid Casting Machine Operator Helper none Estimated Blood Loss 1 Findings Consistent with Post-Op Diagnosis Anesthesia Type Local
--- NOTE | 2021-08-03 14:58 | Operative Report ---
Post Operative Report Pre & Post Diagnosis Operation Date: 08/03/21 08:30 <No data on this case meets the specified criteria> I identified the patient and participated in the time-out.: Yes Procedure Operation Date: 08/03/21 08:30 <No data on this case meets the specified criteria> Surgeon Jeremy Fung MD Email Production Consultant none Estimated Blood Loss 1 Findings Consistent with Post-Op Diagnosis Necrotic eschar circumferentially around the I&D site; fibril purulent exudate; debrided back to healthy bleeding tissue Specimens Necrotic eschar Anesthesia Type General Complications No immediate complications Indications Further purulent drainage and pain from prior I&D site of right upper back abscess; dry eschar at prior I&D site Description of Procedure Patient was taken to the operating room, placed supine on the operating table. Timeout was performed, perioperative antibiotics were administered, SCD boots were placed. After adequate anesthesia and allergies was obtained, the patient was placed on his left side and was prepped and draped in the normal sterile fashion. The prior I&D site was explored. There was black eschar with necrosis circumferentially extending for approximately 1 cm in all directions. This was excised with a 15 blade scalpel. The cavity was then explored. There is a significant amount of fibrinopurulent exudate, which was removed. This was removed back to healthy bleeding tissue. Hemostasis was controlled with electrocautery. The wound measured 3 cm x 7 cm outside; there is a 2 cm underlay track inferiorly; it is 3 cm deep. The wound was packed wet-to-dry with Kerlix, and a dressing was applied. He tolerated the procedure without complication, and was transferred in stable condition to the PACU. All instrument, needle, and sponge counts were correct at the end of the case. I attest to the content of the Intraoperative Record and any orders documented therein. Any exceptions are noted below.
[2021-08-03] MEDS ORDERED: ACETAMINOPHEN 1,000 MG/100 ML VIAL IV STA (15:12)
[2021-08-03] MEDS ORDERED: ACETAMINOPHEN 1000 MG/100 ML IV IV ONE (15:14)
[2021-08-03] MEDS ORDERED: PHENYLEPHRINE HCL 10 MG/ML VIAL ONE (15:15)
[2021-08-03] MEDS: AMPICILLIN/SULBACTAM SOD 3,000 MG in 0.9 % SODIUM CHLORIDE 100 ML IV SCH ×2 (15:23→19:49)
--- NOTE | 2021-08-03 15:58 | Anesthesiology Progress Note ---
Date of Service August 03, 2021 Anesthesia Post Procedure Vital Signs Vital Signs: Temp Pulse Pulse Pulse Resp BP Pulse Ox 08/03/21 15:45 36.9 C 83 20 122/63 94 08/03/21 15:35 81 18 127/49 L 94 08/03/21 15:25 82 19 130/69 97 08/03/21 15:15 86 19 128/67 100 08/03/21 15:07 36.2 C L 83 22 107/88 100 08/03/21 13:32 76 21 97 08/03/21 13:17 36.8 C 76 18 112/58 L 97 08/03/21 11:15 36.8 C 68 18 123/79 96 08/03/21 10:53 86 20 97 08/03/21 08:17 36.6 C 70 20 114/72 94 08/03/21 07:42 68 08/03/21 07:31 79 20 91 08/03/21 03:43 36.4 C L 66 18 116/71 94 08/03/21 02:14 84 20 94 08/02/21 23:59 82 08/02/21 23:52 82 28 H 93 08/02/21 22:56 36.6 C 67 24 101/60 94 08/02/21 20:25 77 12 99 08/02/21 19:09 36.8 C 77 20 102/67 91 Pain Intensity Lower Back: Pain Intensity: 6 Right Back: Pain Intensity: 3 Transfer of Care Handoff Completed per policy Notes Mental Status: alert / awake / arousable and participated in evaluation Patient Amnestic to Procedure: Yes Nausea / Vomiting: adequately controlled Pain: adequately controlled Airway Patency, RR, SpO2: stable & adequate BP & HR: stable & adequate Hydration State: stable & adequate Anesthetic Complications: no major complications apparent and Pt Satisfied with anesthetic care
[2021-08-03] MEDS: QUEtiapine FUMARATE 25 MG TABLET PO SCH (20:02)
[2021-08-03] MEDS: ATORVASTATIN 40 MG TAB PO SCH (20:03)
[2021-08-03] MEDS: INSULIN GLARGINE SOLOSTAR 100 UNITS/ML 3 ML PEN SQ SCH (20:11)
[2021-08-04] MEDS: AMPICILLIN/SULBACTAM SOD 3,000 MG in 0.9 % SODIUM CHLORIDE 100 ML IV SCH ×2 (01:03→08:15)
[2021-08-04] MEDS: HYDROmorphone INJ 0.5 MG/0.5 ML SYR IV PRN ×2 (05:58→11:43)
[2021-08-04] MEDS: DAPTOmycin 425 MG in SYRINGE 0 ML IV SCH (05:59)
[2021-08-04] MEDS: Albuterol HFA 8 GM Inhaler (Combivent Respimat P&T Subs) INH SCH ×4 (07:46→19:35)
[2021-08-04] MEDS: Ipratropium HFA Inhaler (Combivent Respimat P&T Subs) INH SCH ×4 (07:46→19:35)
[2021-08-04] MEDS: FUROSEMIDE 20 MG in SYRINGE 0 ML IV SCH (08:10)
[2021-08-04] MEDS: INSULIN ASPART 100 UNITS/ML 3 ML PEN SC SCH ×4 (08:10→20:45)
[2021-08-04] MEDS: SERTRALINE HCL 100 MG TABLET PO SCH (08:11)
[2021-08-04] MEDS: METOPROLOL TARTRATE 25 MG TAB PO SCH ×2 (08:11→20:43)
[2021-08-04] MEDS: HEPARIN SOD 5,000 UNIT/0.5 ML VIAL SQ SCH ×2 (08:11→20:44)
[2021-08-04] MEDS: AZITHROMYCIN 250 MG TAB PO SCH (08:11)
[2021-08-04] MEDS: DONEPEZIL HCL 5 MG TAB PO SCH (08:12)
[2021-08-04 09:50] LABS: Basophils # (auto) 0.01 K/uL (0-0.2); Basophils % (auto) 0.1 %; Eosinophils % (auto) 2.3 %; Hematocrit (blood only) 33.9 % (42-52); Hemoglobin 9.3 g/dL (14.0-18.0); Immature Granulocytes # (auto) 0.08 K/uL (0.00-0.02); Immature Granulocytes % (auto) 0.9 %; Lymphocytes # (auto) 1.34 K/uL (1.2-3.4); Lymphocytes % (auto) 15.5 %; Mean Corpuscular Hemoglobin 25.1 pg (25-34); Mean Corpuscular Hgb Conc 27.4 g/dL (32-36); Mean Corpuscular Volume 91.6 fL (80-100); Mean Platelet Volume 9.5 fL (7.4-10.4); Monocytes # (auto) 0.57 K/uL (0.11-0.59); Monocytes % (auto) 6.6 %; Neutrophils # (auto) 6.44 K/uL (1.4-6.5); Neutrophils % (auto) 74.6 %; Platelet Count 407 K/uL (130-400); RDW Coefficient of Variation 16.9 % (11.5-14.5); RDW Standard Deviation 56.8 fL (36.4-46.3); White Blood Count 8.64 K/uL (4.8-10.8)
[2021-08-04 10:05] LABS: Calcium 9.1 mg/dl (8.5-10.1); Potassium 3.8 mmol/L (3.5-5.1)
[2021-08-04 10:42] LABS: Creatinine Clr Calc Pharmacy 168.2 ml/min; Est GFR (African American) 118.9 ml/min; Est GFR (Non-African American) 102.6 ml/min
--- NOTE | 2021-08-04 12:11 | Surgery Progress Note ---
Date of Service August 04, 2021 Assessment & Plan (1) Abscess: Plan: doing well. wound clean with good granulation tissue. seen with wound care nurse today - wound vac placed. will monitor. Admission and Anticipated Discharge Date Admission Date: July 31, 2021 Subjective POD1 s/p debridement of wound; still some pain; denies fevers/nausea Physical Exam Constitutional: WD/WN, vitals as above Neck: trachea midline, no thyromegaly Skin: upper back: wound measures 3x7cm; 3 cm deep; undermined 2 cm inferiorly - good granulation tissue; no further purulent drainage Results & Data ([facility]) Vital Signs (Past 12 Hours) Vital Signs Temp Pulse Pulse Pulse Resp BP Pulse Ox 08/04/21 08:02 36.4 C L 73 18 110/55 L 90 08/04/21 07:45 80 18 93 08/04/21 07:30 69 08/04/21 04:08 36.4 C L 60 16 106/55 L 95 08/04/21 00:52 73 Laboratory Results 08/04/21 08/04/21 08/04/21 Range/Units 11:13 09:18 09:18 WBC 8.64 (4.8-10.8) K/uL RBC 3.70 L (4.7-6.1) M/uL Hgb 9.3 L (14.0-18.0) g/dL Hct 33.9 L (42-52) % MCV 91.6 (80-100) fL MCH 25.1 (25-34) pg MCHC 27.4 L (32-36) g/dL RDW Std Deviation 56.8 H (36.4-46.3) fL RDW Coeff of Raquel 16.9 H (11.5-14.5) % Plt Count 407 H (130-400) K/uL MPV 9.5 (7.4-10.4) fL Immature Gran % (Auto) 0.9 % Neut % (Auto) 74.6 % Lymph % (Auto) 15.5 % Leslie % (Auto) 6.6 % Eos % (Auto) 2.3 % Baso % (Auto) 0.1 % Neut # (Auto) 6.44 (1.4-6.5) K/uL Lymph # (Auto) 1.34 (1.2-3.4) K/uL Leslie # (Auto) 0.57 (0.11-0.59) K/uL Eos # (Auto) 0.20 (0-0.5) K/uL Baso # (Auto) 0.01 (0-0.2) K/uL Immature Gran # (Auto) 0.08 H (0.00-0.02) K/uL Sodium 142 (136-145) mmol/L Potassium 3.8 (3.5-5.1) mmol/L Chloride 99 (98-107) mmol/L Carbon Dioxide 40 H (21-32) mmol/L Anion Gap 3.0 (3-11) BUN 19 H (7-18) mg/dl Creatinine 0.60 (0.6-1.4) mg/dl Est Cr Clr Drug Dosing 168.2 ml/min Est GFR ( Amer) 118.9 ml/min Est GFR (Non-Af Amer) 102.6 ml/min BUN/Creatinine Ratio 31.0 H (10-20) Glucose 156 H (70-99) mg/dl POC Glucose 129 H (70-99) mg/dl Calcium 9.1 (8.5-10.1) mg/dl 08/04/21 08/03/21 08/03/21 Range/Units 07:24 20:02 15:08 WBC (4.8-10.8) K/uL RBC (4.7-6.1) M/uL Hgb (14.0-18.0) g/dL Hct (42-52) % MCV (80-100) fL MCH (25-34) pg MCHC (32-36) g/dL RDW Std Deviation (36.4-46.3) fL RDW Coeff of Raquel (11.5-14.5) % Plt Count (130-400) K/uL MPV (7.4-10.4) fL Immature Gran % (Auto) % Neut % (Auto) % Lymph % (Auto) % Leslie % (Auto) % Eos % (Auto) % Baso % (Auto) % Neut # (Auto) (1.4-6.5) K/uL Lymph # (Auto) (1.2-3.4) K/uL Leslie # (Auto) (0.11-0.59) K/uL Eos # (Auto) (0-0.5) K/uL Baso # (Auto) (0-0.2) K/uL Immature Gran # (Auto) (0.00-0.02) K/uL Sodium (136-145) mmol/L Potassium (3.5-5.1) mmol/L Chloride (98-107) mmol/L Carbon Dioxide (21-32) mmol/L Anion Gap (3-11) BUN (7-18) mg/dl Creatinine (0.6-1.4) mg/dl Est Cr Clr Drug Dosing ml/min Est GFR ( Amer) ml/min Est GFR (Non-Af Amer) ml/min BUN/Creatinine Ratio (10-20) Glucose (70-99) mg/dl POC Glucose 90 130 H 112 H (70-99) mg/dl Calcium (8.5-10.1) mg/dl
[2021-08-04] MEDS ORDERED: PIPERACILL/TAZOBAC CONSULT ACTIVE PRN (13:20)
--- NOTE | 2021-08-04 13:23 | Hospitalist Progress Note ---
Date of Service August 04, 2021 Assessment & Plan (1) Abscess: Plan: Right low back abscess 2/2 polymicrobial infection, including Pseudomonas Drained and irrigated 07/31 by surgical team. Debrided 08/03 as below. Leukocytosis normalized 08/02 Hemoglobin stable Wound culture positive for Pseudomonas and anaerobe pending speciation - BID wet to dry dressing - Continue daptomycin -Unasyn converted to Zosyn for Pseudomonas coverage. Continue Zosyn 4.5 g every 6 hours for Pseudomonas skin and soft tissue infection. Sensitivities pending. Anticipate 14-day course assuming patient does not require further debridement, clinically improved, and remains afebrile. 3 x 7 cm abscess with purulent drainage and necrotic overlying skin. Successfully debrided back to healthy tissue 08/03. (2) Sepsis: Plan: SIRS 2, Qsofa-2 On admission, resolved Leukocytosis normalized, lactate negative, pro-John negative Fluids discontinued Source control as above Antibiotics as above (3) Acute hypoxemic respiratory failure: Plan: Improved CXR: Initial read as patient with right greater than left opacities, increased pleural effusions. On review cardiomegaly without congestive failure, although bibasilar consolidations appreciated. -Patient progressed from BiPAP to nasal cannula, continue Azithromycin x5 days and continue incentive cain/flutter & follow clinically BiPAP as needed (4) HLD (hyperlipidemia): Plan: Atorvastatin 40mg daily (5) Seizure: Plan: Continue with Depakote (6) Obstructive lung disease: Plan: Past smoker quit in 2011 per - Continue albuterol - Continue Theophylline - Serum level normal - Azithro as noted above (7) HTN (hypertension): Plan: Continue metoprolol as long as remains normotensive (8) Diabetes: Plan: Continue Lantus - Aspart sliding scale- CF 20, ratio 1:9 (9) Dementia: Plan: Cotninue with aricept (10) Renal stones: Plan: Oxalate stone in urine- noted on CT scan- numerous - noted with right sided hydronephrosis- with possible UPJ obstruction - Urology consulted. Do not recommend any acute intervention, manage chronic hydro as outpatient, continue antibiotics, maintain Valerio catheter at this time and consider voiding trial when optimized. - IVFM as indicated (11) Abnormal CT scan: Plan: Mild non-specific infiltration around pancreatic tail - lipase pending - no abdominal pain or other symptoms consistent with acute pancreatitis - follow clinically Admission and Anticipated Discharge Date Admission Date: July 31, 2021 Subjective Patient reports he feels "fine, my back hurts "today. Offers little spontaneous conversation, but awakens to voice and answers questions and follows commands appropriately. Reports his back continues to hurt, but he thinks that it is improved from yesterday. No additional questions at time of assessment. Review of Systems Review of Systems: Constitutional: Endorses fatigue. Denies fever/chills Eyes: Denies double vision, vision change, eye pain ENT: Denies ear pain, sore throat, sinus pain Cardiovascular: Denies Chest pain, chest pressure, palpitations Respiratory: Denies shortness of breath at rest, endorses some shortness of breath with exertion. Denies cough/sputum production/difficulty breathing Gastrointestinal: Denies abdominal pain, nausea, vomiting, constipation, diarrhea Genitourinary: Denies pain with urination Musculoskeletal: Denies focal weakness. Endorses back pain at his abscess site Integumentary:Denies rash, lesions, bruising Neurological: Denies headache, numbness, tingling Physical Exam Physical Exam: General: A&Ox3. NAD. Cooperative. Somnolent, arouses easily to voice. HEENT: Atraumatic, normocephalic. Visual acuity and hearing intact. Pulm: Diminished without overt -wheezes, -rales, -rhonchi. Symmetrical chest rise. No increase work of breathing. No respiratory distress. Cardiac: RRR, -mrg. Radial pulses intact and symmetrical. Abdominal: Nontender, nondistended, soft. BS present. Back: Postsurgical dressing with wound VAC in place/C/D/I Results & Data Results & Data ([facility]) Vital Signs (Past 12 Hours) Vital Signs Temp Pulse Pulse Pulse Resp BP Pulse Ox 08/04/21 08:02 36.4 C L 73 18 110/55 L 90 08/04/21 07:45 80 18 93 08/04/21 07:30 69 08/04/21 04:08 36.4 C L 60 16 106/55 L 95 PG Care Time/CCT Total # of Minutes Spent Total Time Spent with Patient: Total time spent is greater than 50% in coordination of care (as documented) at patient's floor/unit and/or counseling patient: Coding Level of Care Code 06376 Subseq Hosp Care Lvl 3 Diagnoses Abscess L02.91 Sepsis A41.9 Acute hypoxemic respiratory failure J96.01 HLD (hyperlipidemia) E78.5 Seizure R56.9 Obstructive lung disease J44.9 HTN (hypertension) I10 Diabetes E11.9 Dementia F03.90 Renal stones N20.[address] scan R93.89
[2021-08-04] MEDS ORDERED: PIPERACILLIN/TAZOBACTAM 4.5 GM in DEXTROSE 5% 100 ML IV SCH (13:30)
[2021-08-04] MEDS ORDERED: PIPERACILLIN/TAZOBACTAM 4.5 GM in DEXTROSE 5% 100 ML IV ONE (14:00)
[2021-08-04] MEDS: PIPERACILLIN/TAZOBACTAM 4.5 GM in DEXTROSE 5% 100 ML IV SCH (16:00)
[2021-08-04] MEDS: QUEtiapine FUMARATE 25 MG TABLET PO SCH (20:42)
[2021-08-04] MEDS: ATORVASTATIN 40 MG TAB PO SCH (20:43)
[2021-08-04] MEDS: INSULIN GLARGINE SOLOSTAR 100 UNITS/ML 3 ML PEN SQ SCH (20:48)
[2021-08-05] MEDS: PIPERACILLIN/TAZOBACTAM 4.5 GM in DEXTROSE 5% 100 ML IV SCH (01:27)
[2021-08-05] MEDS: DAPTOmycin 425 MG in SYRINGE 0 ML IV SCH (06:00)
[2021-08-05] MEDS: Albuterol HFA 8 GM Inhaler (Combivent Respimat P&T Subs) INH SCH ×4 (07:37→19:52)
[2021-08-05] MEDS: Ipratropium HFA Inhaler (Combivent Respimat P&T Subs) INH SCH ×4 (07:37→19:51)
--- NOTE | 2021-08-05 07:51 | Hospitalist Progress Note ---
Date of Service August 05, 2021 Assessment & Plan (1) Abscess: Plan: Right low back abscess 2/2 polymicrobial infection, including Pseudomonas Drained and irrigated 07/31 by surgical team. Debrided 08/03 as below. Leukocytosis normalized 08/02 Hemoglobin stable Wound culture positive for MDR Pseudomonas. Abx switched to Avycaz with FLagyl for anerobe coverage (2nd growth pending speciation) - BID wet to dry dressing 3 x 7 cm abscess with purulent drainage and necrotic overlying skin. Successfully debrided back to healthy tissue 08/03. - Contact precautions placed for MDR Pseudomonas (2) Sepsis: Plan: SIRS 2, Qsofa-2 On admission, resolved Leukocytosis normalized, lactate negative, pro-John negative Fluids discontinued Source control as above Antibiotics as above (3) Acute hypoxemic respiratory failure: Plan: Intermitted, suspectSuspect obesity hypovent/atelect with baseline COPD but pna covered as above CXR: Initial read as patient with right greater than left opacities, increased pleural effusions. On review cardiomegaly without congestive failure, although bibasilar consolidations appreciated. -Patient progressed from BiPAP to nasal cannula, incentive cain/flutter & follow clinically Elevated CO2 on BMP today on NC - Hypoventiliation, pt not wearing CPAP/BiPAP - BiPAP and reassess. (4) HLD (hyperlipidemia): Plan: Atorvastatin 40mg daily (5) Seizure: Plan: Continue with Depakote (6) Obstructive lung disease: Plan: Past smoker quit in 2011 per - Continue albuterol - Continue Theophylline - Serum level normal - Abx as noted (7) HTN (hypertension): Plan: Continue metoprolol as long as remains normotensive (8) Diabetes: Plan: Continue Lantus - Aspart sliding scale- CF 20, ratio 1:9 (9) Dementia: Plan: Cotninue with aricept (10) Renal stones: Plan: Oxalate stone in urine- noted on CT scan- numerous - noted with right sided hydronephrosis- with possible UPJ obstruction - Urology consulted. Do not recommend any acute intervention, manage chronic hydro as outpatient, continue antibiotics, maintain Valerio catheter at this time and consider voiding trial when optimized. 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 Reports he feels 'just wiped out' and 'ill, hard to describe.' Denies shaking chills, fever. Denies shortnes of breath, conusion, endorses somnolence. Reports back aches ~5-6/10 and improves with pain medicine. Reports has not been wearing his CPAP/BiPaP but is 'ok to if I need it.' Denies wheezing and cough. No questions at bedside. Review of Systems Review of Systems: Constitutional: Endorses fatigue, general unwellness. Denies fever/chills Eyes: Denies double vision, vision change, eye pain ENT: Denies ear pain, sore throat, sinus pain Cardiovascular: Denies Chest pain, chest pressure, palpitations Respiratory: Denies shortness of breath at rest, endorses some shortness of breath moving in bed. Denies cough/sputum production/difficulty breathing Gastrointestinal: Denies abdominal pain, nausea, vomiting, constipation, diarrhea Genitourinary: Denies pain with urination Musculoskeletal: Denies focal weakness. Endorses back pain at his abscess site Integumentary:Denies rash, lesions, bruising Neurological: Denies headache, numbness, tingling Physical Exam Physical Exam: General: A&Ox3. NAD. Cooperative. Somnolent, arouses easily to voice. HEENT: Atraumatic, normocephalic. Visual acuity and hearing intact. Pulm: Diminished without overt -wheezes, -rales, -rhonchi. Symmetrical chest rise. No increase work of breathing. No respiratory distress. Cardiac: RRR, -mrg. Radial pulses intact and symmetrical. Abdominal: Nontender, nondistended, soft. BS present. Back: Postsurgical dressing with wound VAC in place/C/D/I Results & Data Results & Data ([facility]) Vital Signs (Past 12 Hours) Vital Signs Temp Pulse Pulse Resp BP Pulse Ox 08/05/21 07:38 78 18 95 08/05/21 05:21 36.2 C L 68 16 125/69 98 08/04/21 23:33 36.3 C L 66 18 131/77 99 09/30/21 23:00 64 PG Care Time/CCT Total # of Minutes Spent Total Time Spent with Patient: Total time spent is greater than 50% in coordination of care (as documented) at patient's floor/unit and/or counseling patient: Coding Level of Care Code 22352 Subseq Hosp Care Lvl 3 Diagnoses Abscess L02.91 Sepsis A41.9 Acute hypoxemic respiratory failure J96.01 HLD (hyperlipidemia) E78.5 Seizure R56.9 Obstructive lung disease J44.9 HTN (hypertension) I10 Diabetes E11.9 Dementia F03.90 Renal stones N20.[address] scan R93.89 Infection with Pseudomonas aeruginosa resistant to multiple drugs A49.8; Z16.24
[2021-08-05] MEDS: INSULIN ASPART 100 UNITS/ML 3 ML PEN SC SCH ×4 (08:00→20:09)
[2021-08-05] MEDS: METOPROLOL TARTRATE 25 MG TAB PO SCH ×2 (08:36→20:00)
[2021-08-05] MEDS: FUROSEMIDE 20 MG in SYRINGE 0 ML IV SCH (08:36)
[2021-08-05] MEDS: SERTRALINE HCL 100 MG TABLET PO SCH (08:36)
[2021-08-05] MEDS: DONEPEZIL HCL 5 MG TAB PO SCH (08:36)
[2021-08-05] MEDS: HEPARIN SOD 5,000 UNIT/0.5 ML VIAL SQ SCH ×2 (08:37→20:00)
[2021-08-05 08:39] LABS: Eosinophils # (auto) 0.35 K/uL (0-0.5); Eosinophils % (auto) 4.2 %; Hematocrit (blood only) 32.8 % (42-52); Hemoglobin 9.1 g/dL (14.0-18.0); Immature Granulocytes % (auto) 1.2 %; Lymphocytes # (auto) 1.59 K/uL (1.2-3.4); Lymphocytes % (auto) 19.3 %; Mean Corpuscular Hemoglobin 25.3 pg (25-34); Mean Corpuscular Hgb Conc 27.7 g/dL (32-36); Mean Corpuscular Volume 91.1 fL (80-100); Monocytes # (auto) 0.49 K/uL (0.11-0.59); Monocytes % (auto) 5.9 %; Neutrophils # (auto) 5.72 K/uL (1.4-6.5); Neutrophils % (auto) 69.4 %; Nucleated RBC # (auto) 0.02 K/uL (0-0); Nucleated RBC % (auto) 0.2 %; Platelet Count 452 K/uL (130-400); RDW Coefficient of Variation 16.9 % (11.5-14.5); RDW Standard Deviation 55.4 fL (36.4-46.3); White Blood Count 8.25 K/uL (4.8-10.8)
--- NOTE | 2021-08-05 08:40 | Surgery Progress Note ---
Date of Service August 05, 2021 Assessment & Plan (1) Abscess: Plan: doing well. wound vac to be changed Sunday. will monitor. Admission and Anticipated Discharge Date Admission Date: July 31, 2021 Subjective doing well. less pain today. wound vac in place with good seal Physical Exam Constitutional: WD/WN, vitals as above Eyes: PERRL, conjunctivae normal, anicteric sclerae Neck: trachea midline, no thyromegaly Musculoskeletal: Extremities: no cyanosis and no clubbing Skin: no rashes, warm and dry Psychiatric: A+Ox3, euthymic affect Results & Data ([facility]) Vital Signs (Past 12 Hours) Vital Signs Temp Pulse Pulse Resp BP BP Pulse Ox 08/05/21 08:20 36.5 C 61 18 133/69 100 08/05/21 08:16 57 L 08/05/21 07:38 78 18 95 08/05/21 05:21 36.2 C L 68 16 125/69 98 08/04/21 23:33 36.3 C L 66 18 131/77 99 08/04/21 23:00 64
[2021-08-05] MEDS: HYDROmorphone INJ 0.5 MG/0.5 ML SYR IV PRN ×3 (08:45→21:27)
[2021-08-05 08:51] LABS: BUN Creatinine Ratio 29.6 (10-20); Calcium 9.5 mg/dl (8.5-10.1); Creatinine Clr Calc Pharmacy 159.6 ml/min; Est GFR (African American) 115.8 ml/min; Est GFR (Non-African American) 99.9 ml/min; Potassium 3.8 mmol/L (3.5-5.1)
[2021-08-05 10:46] LABS: Base Excess VBG 14.4 mEq/L; Oxygen Saturation VBG 81.8 %; pH VBG 7.35 (7.36-7.41)
[2021-08-05] MEDS: metroNIDAZOLE 500 MG/100 ML BAG IV SCH ×2 (12:22→18:33)
[2021-08-05 12:23] LABS: Base Excess VBG 17.1 mEq/L; HCO3 VBG 45 mmol/L; PCO2 VBG 81 mmHg (38-50); PO2 VBG 28 mmHg; pH VBG 7.37 (7.36-7.41)
[2021-08-05 12:24] LABS: Oxygen Saturation VBG < 60.0 %
[2021-08-05] MEDS: ACETAMINOPHEN 325 MG TAB PO PRN (19:16)
[2021-08-05] MEDS: ATORVASTATIN 40 MG TAB PO SCH (19:59)
[2021-08-05] MEDS: QUEtiapine FUMARATE 25 MG TABLET PO SCH (20:00)
[2021-08-05] MEDS: INSULIN GLARGINE SOLOSTAR 100 UNITS/ML 3 ML PEN SQ SCH (20:01)
[2021-08-06] MEDS: metroNIDAZOLE 500 MG/100 ML BAG IV SCH ×3 (03:00→17:22)
[2021-08-06] MEDS: Albuterol HFA 8 GM Inhaler (Combivent Respimat P&T Subs) INH SCH ×4 (07:18→19:21)
[2021-08-06] MEDS: Ipratropium HFA Inhaler (Combivent Respimat P&T Subs) INH SCH ×4 (07:18→19:22)
[2021-08-06] MEDS: METOPROLOL TARTRATE 25 MG TAB PO SCH ×2 (08:18→21:07)
[2021-08-06] MEDS: DONEPEZIL HCL 5 MG TAB PO SCH (08:19)
[2021-08-06] MEDS: SERTRALINE HCL 100 MG TABLET PO SCH (08:19)
[2021-08-06] MEDS: FUROSEMIDE 20 MG in SYRINGE 0 ML IV SCH (08:21)
[2021-08-06] MEDS: HEPARIN SOD 5,000 UNIT/0.5 ML VIAL SQ SCH ×2 (08:21→21:09)
[2021-08-06] MEDS: INSULIN ASPART 100 UNITS/ML 3 ML PEN SC SCH ×4 (09:06→21:51)
[2021-08-06 10:10] LABS: Basophils # (auto) 0.01 K/uL (0-0.2); Basophils % (auto) 0.1 %; Eosinophils # (auto) 0.32 K/uL (0-0.5); Eosinophils % (auto) 3.5 %; Hematocrit (blood only) 33.1 % (42-52); Hemoglobin 9.5 g/dL (14.0-18.0); Immature Granulocytes # (auto) 0.12 K/uL (0.00-0.02); Immature Granulocytes % (auto) 1.3 %; Lymphocytes # (auto) 1.64 K/uL (1.2-3.4); Lymphocytes % (auto) 17.7 %; Mean Corpuscular Hemoglobin 25.5 pg (25-34); Mean Corpuscular Hgb Conc 28.7 g/dL (32-36); Mean Platelet Volume 9.8 fL (7.4-10.4); Monocytes # (auto) 0.49 K/uL (0.11-0.59); Monocytes % (auto) 5.3 %; Neutrophils # (auto) 6.68 K/uL (1.4-6.5); Neutrophils % (auto) 72.1 %; Platelet Count 415 K/uL (130-400); RDW Coefficient of Variation 16.7 % (11.5-14.5); Red Blood Count 3.72 M/uL (4.7-6.1); White Blood Count 9.26 K/uL (4.8-10.8)
[2021-08-06 10:15] LABS: Base Excess VBG 15.6 mEq/L; Oxygen Saturation VBG 73.2 %; pH VBG 7.42 (7.36-7.41)
[2021-08-06 10:27] LABS: BUN Creatinine Ratio 32.4 (10-20); Calcium 9.2 mg/dl (8.5-10.1); Creatinine Clr Calc Pharmacy 158.4 ml/min; Est GFR (African American) 115.8 ml/min; Est GFR (Non-African American) 99.9 ml/min; Potassium 3.6 mmol/L (3.5-5.1)
[2021-08-06] MEDS: HYDROmorphone INJ 0.5 MG/0.5 ML SYR IV PRN (10:27)
--- NOTE | 2021-08-06 15:06 | Hospitalist Progress Note ---
Date of Service August 06, 2021 Assessment & Plan (1) Abscess: Plan: Right low back abscess 2/2 polymicrobial infection, including Pseudomonas Drained and irrigated 07/31 by surgical team. Debrided 08/03 as below. Leukocytosis normalized 08/02 Hemoglobin stable Wound culture positive for MDR Pseudomonas. Abx switched to Avycaz with FLagyl for anerobe coverage (2nd growth pending speciation) Continue Avycaz/Flagyl - BID wet to dry dressing 3 x 7 cm abscess with purulent drainage and necrotic overlying skin. Successfully debrided back to healthy tissue 08/03. - Contact for MDR Pseudomonas Clinical course improving, continue current antibiotics. (2) Sepsis: Plan: SIRS 2, Qsofa-2 On admission, resolved Leukocytosis normalized, lactate negative, pro-John negative Fluids discontinued Source control as above Antibiotics as above (3) Acute hypoxemic respiratory failure: Plan: Intermitted, suspect obesity hypovent/atelect with baseline COPD but pna covered as above CXR: Initial read as patient with right greater than left opacities, increased pleural effusions. On review cardiomegaly without congestive failure, although bibasilar consolidations appreciated. -Patient progressed from BiPAP to nasal cannula, incentive cain/flutter & follow clinically Elevated CO2 on BMP today on NC - Hypoventiliation when pt not wearing CPAP/BiPAP -VBG improved, slightly alkalotic today although PCO2 remains at 67. Continue CPAP/BiPAP nightly and as needed (4) HLD (hyperlipidemia): Plan: Atorvastatin 40mg daily (5) Seizure: Plan: Continue with Depakote (6) Obstructive lung disease: Plan: Past smoker quit in 2011 per - Continue albuterol - Continue Theophylline - Serum level normal - Abx as noted (7) HTN (hypertension): Plan: Continue metoprolol as long as remains normotensive (8) Diabetes: Plan: Continue Lantus - Aspart sliding scale- CF 20, ratio 1:9 (9) Dementia: Plan: Cotninue with aricept (10) Renal stones: Plan: Oxalate stone in urine- noted on CT scan- numerous - noted with right sided hydronephrosis- with possible UPJ obstruction - Urology consulted. Do not recommend any acute intervention, manage chronic hydro as outpatient, continue antibiotics, maintain Valerio catheter (11) Abnormal CT scan: Plan: Mild non-specific infiltration around pancreatic tail - lipase pending - no abdominal pain or other symptoms consistent with acute pancreatitis - follow clinically (12) Infection with Pseudomonas aeruginosa resistant to multiple drugs: Plan: - See above Admission and Anticipated Discharge Date Admission Date: July 31, 2021 Subjective Fatigue, no fever/chills/sweats. Back continues to hurt intermittently. No acute questions/concerns. Arouses easily, answers questions appropriately. Review of Systems Review of Systems: 10 point review systems negative except as noted in HPI. limited by somnolence. Physical Exam Physical Exam: General: A&Ox3. NAD. Cooperative. Somnolent, arouses easily to voice. HEENT: Atraumatic, normocephalic. Visual acuity and hearing intact. Pulm: Diminished without overt -wheezes, -rales, -rhonchi. Symmetrical chest rise. No increase work of breathing. No respiratory distress. Cardiac: RRR, -mrg. Radial pulses intact and symmetrical. Abdominal: Nontender, nondistended, soft. BS present. Back: Postsurgical dressing with wound VAC in place. Results & Data Results & Data ([facility]) Vital Signs (Past 12 Hours) Vital Signs Temp Pulse Pulse Resp BP BP Pulse Ox 08/06/21 15:00 68 18 95 08/06/21 11:10 78 18 93 08/06/21 08:00 36.7 C 71 22 124/75 95 08/06/21 07:19 80 18 93 08/06/21 04:53 36.8 C 76 18 136/67 96 08/06/21 03:08 65 21 90 PG Care Time/CCT Total # of Minutes Spent Total Time Spent with Patient: Total time spent is greater than 50% in coordination of care (as documented) at patient's floor/unit and/or counseling patient: Coding Level of Care Code 88974 Subseq Hosp Care Lvl 2 Diagnoses Abscess L02.91 Sepsis A41.9 Acute hypoxemic respiratory failure J96.01 HLD (hyperlipidemia) E78.5 Seizure R56.9 Obstructive lung disease J44.9 HTN (hypertension) I10 Diabetes E11.9 Dementia F03.90 Renal stones N20.[address] scan R93.89 Infection with Pseudomonas aeruginosa resistant to multiple drugs A49.8; Z16.24
[2021-08-06] MEDS: QUEtiapine FUMARATE 25 MG TABLET PO SCH (21:06)
[2021-08-06] MEDS: ATORVASTATIN 40 MG TAB PO SCH (21:06)
[2021-08-06] MEDS: INSULIN GLARGINE SOLOSTAR 100 UNITS/ML 3 ML PEN SQ SCH (21:51)
[2021-08-07] MEDS: metroNIDAZOLE 500 MG/100 ML BAG IV SCH ×3 (02:00→18:18)
[2021-08-07 07:23] LABS: Hematocrit (blood only) 34.4 % (42-52); Hemoglobin 9.8 g/dL (14.0-18.0); Mean Corpuscular Hemoglobin 25.5 pg (25-34); Mean Corpuscular Hgb Conc 28.5 g/dL (32-36); Mean Corpuscular Volume 89.6 fL (80-100); Mean Platelet Volume 10.1 fL (7.4-10.4); Platelet Count 432 K/uL (130-400); RDW Coefficient of Variation 17.2 % (11.5-14.5); RDW Standard Deviation 55.6 fL (36.4-46.3); Red Blood Count 3.84 M/uL (4.7-6.1); White Blood Count 9.59 K/uL (4.8-10.8)
[2021-08-07] MEDS: Ipratropium HFA Inhaler (Combivent Respimat P&T Subs) INH SCH ×4 (07:33→19:12)
[2021-08-07] MEDS: Albuterol HFA 8 GM Inhaler (Combivent Respimat P&T Subs) INH SCH ×4 (07:34→19:13)
[2021-08-07 07:41] LABS: Basophils # (auto) 0.01 K/uL (0-0.2); Basophils % (auto) 0.1 %; Eosinophils # (auto) 0.33 K/uL (0-0.5); Eosinophils % (auto) 3.4 %; Immature Granulocytes # (auto) 0.13 K/uL (0.00-0.02); Immature Granulocytes % (auto) 1.4 %; Lymphocytes # (auto) 1.83 K/uL (1.2-3.4); Lymphocytes % (auto) 19.1 %; Monocytes # (auto) 0.73 K/uL (0.11-0.59); Monocytes % (auto) 7.6 %; Neutrophils # (auto) 6.56 K/uL (1.4-6.5); Neutrophils % (auto) 68.4 %; Ovalocytes 1+; Polychromasia 1+; Tear Drop Cells 1+
[2021-08-07 07:52] LABS: BUN Creatinine Ratio 28.3 (10-20); Calcium 9.5 mg/dl (8.5-10.1); Creatinine Clr Calc Pharmacy 146.4 ml/min; Est GFR (African American) 112.3 ml/min; Est GFR (Non-African American) 96.9 ml/min; Potassium 3.9 mmol/L (3.5-5.1)
[2021-08-07] MEDS: INSULIN ASPART 100 UNITS/ML 3 ML PEN SC SCH ×4 (08:00→21:41)
[2021-08-07] MEDS: FUROSEMIDE 20 MG in SYRINGE 0 ML IV SCH (08:02)
[2021-08-07] MEDS: HEPARIN SOD 5,000 UNIT/0.5 ML VIAL SQ SCH ×2 (08:03→21:20)
[2021-08-07] MEDS: SERTRALINE HCL 100 MG TABLET PO SCH (08:03)
[2021-08-07] MEDS: DONEPEZIL HCL 5 MG TAB PO SCH (08:03)
--- NOTE | 2021-08-07 08:12 | Hospitalist Progress Note ---
Date of Service August 07, 2021 Assessment & Plan (1) Abscess: Plan: Dispo: Greatly improved following revision of wound and switch to Avycaz for MDR pseudomonas. Anaerobe in BC pending speciation, anticipate pursuing dispo planning (bed hold at [facility] at this time) once OK per surgery if continues to remain stable. Pt will require IV abx on discharge. Ultrasound guided IV being placed today. Good for at least 3 weeks. Right low back abscess 2/2 polymicrobial infection, including Pseudomonas Drained and irrigated 07/31 by surgical team. Debrided 08/03 as below. Leukocytosis normalized 08/02 Hemoglobin stable Wound culture positive for MDR Pseudomonas. Abx switched to Avycaz with FLagyl for anerobe coverage (2nd growth pending speciation) Continue Avycaz/Flagyl - BID wet to dry dressing 3 x 7 cm abscess with purulent drainage and necrotic overlying skin. Successfully debrided back to healthy tissue 08/03. - Contact for MDR Pseudomonas Clinical course improving, continue current antibiotics. (2) Sepsis: Plan: SIRS 2, Qsofa-2 On admission, resolved Leukocytosis normalized, lactate negative, pro-John negative Fluids discontinued Source control as above Antibiotics as above (3) Acute hypoxemic respiratory failure: Plan: Improved CXR: Initial read as patient with right greater than left opacities, increased pleural effusions. On review cardiomegaly without congestive failure, although bibasilar consolidations appreciated. -Patient progressed from BiPAP to nasal cannula, incentive cain/flutter & follow clinically Elevated CO2 on BMP today on NC - Hypoventiliation when pt not wearing CPAP/BiPAP -Continue CPAP/BiPAP nightly and as needed (4) HLD (hyperlipidemia): Plan: Atorvastatin 40mg daily (5) Seizure: Plan: Continue with Depakote (6) Obstructive lung disease: Plan: Past smoker quit in 2012 per - Continue albuterol - Continue Theophylline - Serum level normal - Abx as noted (7) HTN (hypertension): Plan: Continue metoprolol as long as remains normotensive (8) Diabetes: Plan: Continue Lantus - Aspart sliding scale- CF 20, ratio 1:9 (9) Dementia: Plan: Cotninue with aricept (10) Renal stones: Plan: Oxalate stone in urine- noted on CT scan- numerous - noted with right sided hydronephrosis- with possible UPJ obstruction - Urology consulted. Do not recommend any acute intervention, manage chronic hydro as outpatient, continue antibiotics, maintain Valerio catheter (11) Abnormal CT scan: Plan: Mild non-specific infiltration around pancreatic tail - lipase pending - no abdominal pain or other symptoms consistent with acute pancreatitis - follow clinically (12) Infection with Pseudomonas aeruginosa resistant to multiple drugs: Plan: - See above Admission and Anticipated Discharge Date Admission Date: July 31, 2021 Subjective Seen at bedside this morning. Patient feels improved, no fever/chills/sweats overnight. He reports his back still hurts, but continues to feel less painful daily. Has not been moving much. Denies chest pain/chest pressure/shortness of breath/difficulty breathing. Has worked a little bit with OT today, reports has not gotten up or out of bed much and prefers to nap/rest. Encouraged to have head of bed up as tolerated to engage with PT/OT. Review of Systems Review of Systems: 10 point review systems negative except as noted in HPI. Physical Exam Physical Exam: General: A&Ox3. NAD. Cooperative. Awake, alert. HEENT: Atraumatic, normocephalic. Visual acuity and hearing intact. Pulm: Diminished without overt -wheezes, -rales, -rhonchi. Symmetrical chest rise. No increase work of breathing. No respiratory distress. Cardiac: RRR, -mrg. Radial pulses intact and symmetrical. Abdominal: Nontender, nondistended, soft. BS present. Back: Wound VAC in place. No surrounding erythema/minimal tenderness, no discharge. Results & Data Results & Data ([facility]) Vital Signs (Past 12 Hours) Vital Signs Temp Pulse Pulse Resp BP Pulse Ox 08/07/21 07:35 72 18 95 08/07/21 04:20 36.5 C 64 18 137/80 93 08/07/21 02:52 65 20 96 08/07/21 00:17 36.6 C 66 18 110/64 90 08/06/21 23:59 62 08/06/21 22:33 72 20 96 PG Care Time/CCT Total # of Minutes Spent Total Time Spent with Patient: Total time spent is greater than 50% in coordination of care (as documented) at patient's floor/unit and/or counseling patient: Coding Level of Care Code 12449 Subseq Hosp Care Lvl 3 Diagnoses Abscess L02.91 Sepsis A41.9 Acute hypoxemic respiratory failure J96.01 HLD (hyperlipidemia) E78.5 Seizure R56.9 Obstructive lung disease J44.9 HTN (hypertension) I10 Diabetes E11.9 Dementia F03.90 Renal stones N20.[address] scan R93.89 Infection with Pseudomonas aeruginosa resistant to multiple drugs A49.8; Z16.24
[2021-08-07] MEDS: METOPROLOL TARTRATE 25 MG TAB PO SCH ×2 (10:18→21:21)
[2021-08-07] MEDS: ACETAMINOPHEN 325 MG TAB PO PRN (16:10)
[2021-08-07] MEDS: ATORVASTATIN 40 MG TAB PO SCH (21:20)
[2021-08-07] MEDS: QUEtiapine FUMARATE 25 MG TABLET PO SCH (21:27)
[2021-08-07] MEDS: INSULIN GLARGINE SOLOSTAR 100 UNITS/ML 3 ML PEN SQ SCH (21:41)
[2021-08-08] MEDS: metroNIDAZOLE 500 MG/100 ML BAG IV SCH ×3 (01:58→17:15)
[2021-08-08 06:06] LABS: Eosinophils # (auto) 0.39 K/uL (0-0.5); Eosinophils % (auto) 4.4 %; Hematocrit (blood only) 31.1 % (42-52); Hemoglobin 8.9 g/dL (14.0-18.0); Immature Granulocytes # (auto) 0.08 K/uL (0.00-0.02); Immature Granulocytes % (auto) 0.9 %; Lymphocytes # (auto) 2.06 K/uL (1.2-3.4); Lymphocytes % (auto) 23.4 %; Mean Corpuscular Hemoglobin 25.8 pg (25-34); Mean Corpuscular Hgb Conc 28.6 g/dL (32-36); Mean Corpuscular Volume 90.1 fL (80-100); Mean Platelet Volume 10.2 fL (7.4-10.4); Monocytes # (auto) 0.52 K/uL (0.11-0.59); Monocytes % (auto) 5.9 %; Neutrophils # (auto) 5.75 K/uL (1.4-6.5); Neutrophils % (auto) 65.4 %; Platelet Count 385 K/uL (130-400); RDW Coefficient of Variation 17.7 % (11.5-14.5); RDW Standard Deviation 56.7 fL (36.4-46.3); Red Blood Count 3.45 M/uL (4.7-6.1)
[2021-08-08 06:11] LABS: Potassium 3.8 mmol/L (3.5-5.1)
[2021-08-08 06:40] LABS: BUN Creatinine Ratio 32.9 (10-20); Calcium 9.3 mg/dl (8.5-10.1); Creatinine Clr Calc Pharmacy 148.9 ml/min; Est GFR (African American) 112.9 ml/min; Est GFR (Non-African American) 97.4 ml/min
[2021-08-08] MEDS: Albuterol HFA 8 GM Inhaler (Combivent Respimat P&T Subs) INH SCH ×4 (07:36→19:09)
[2021-08-08] MEDS: Ipratropium HFA Inhaler (Combivent Respimat P&T Subs) INH SCH ×4 (07:36→19:08)
[2021-08-08] MEDS: INSULIN ASPART 100 UNITS/ML 3 ML PEN SC SCH ×4 (07:45→20:33)
[2021-08-08] MEDS: FUROSEMIDE 20 MG in SYRINGE 0 ML IV SCH (08:03)
[2021-08-08] MEDS: METOPROLOL TARTRATE 25 MG TAB PO SCH ×2 (08:06→20:40)
[2021-08-08] MEDS: HEPARIN SOD 5,000 UNIT/0.5 ML VIAL SQ SCH ×2 (08:06→20:39)
[2021-08-08] MEDS: SERTRALINE HCL 100 MG TABLET PO SCH (08:13)
[2021-08-08] MEDS: DONEPEZIL HCL 5 MG TAB PO SCH (08:13)
[2021-08-08] MEDS: HYDROmorphone INJ 0.5 MG/0.5 ML SYR IV PRN (10:53)
[2021-08-08] MEDS ORDERED: FUROSEMIDE 40 MG in SYRINGE 0 ML IV ONE ×2 (12:00→18:00)
--- NOTE | 2021-08-08 12:42 | XRay Report ---
XR chest 1V portable HISTORY: 71 years-old Male ?chf acute shortness of breath with congestive heart failure COMPARISON: Chest radiograph 08/01/2021 TECHNIQUE: Portable AP view of the chest FINDINGS: Cardiomegaly with mild pulmonary vascular congestion. Small layering pleural effusions with bibasilar opacities. Findings are similar to comparison. No pneumothorax. Calcified plaque of the thoracic aor ta. Degenerative changes of the shoulders and findings IMPRESSION: 1. Cardiomegaly with pulmonary vascular congestion. 2. Small pleural effusions with mild bibasilar opacities favoring atelectasis. ACT 112: Negative or not required by law. The above report was generated using voice recognition software. It may contain grammatical, syntax o r spelling errors. Electronically signed by: Cayetano Puckett M.D. 08/08/2021 12:41 PM
--- NOTE | 2021-08-08 14:31 | Surgery Progress Note ---
Date of Service August 08, 2021 Assessment & Plan (1) Abscess: Plan: s/p debridement wound vac replaced today, no issues per wound nurse continue wound vac therapy will need wound care clinic follow-up Continue antibiotic therapy Continue medical management our services signing off, please call with questions or concerns Dr. Fung has seen and examined pt, agrees with above. Admission and Anticipated Discharge Date Admission Date: July 31, 2021 Subjective still having pain in the back at wound site unsure if the wound vac was replaced today [facility] and she replaced wound vac and wound looked good. Physical Exam Constitutional: + morbidly obese; no acute distress and not ill appearing Skin: no rashes, warm and dry Back with wound vac present, intact, and on suction Results & Data ([facility]) Vital Signs (Past 12 Hours) Vital Signs Temp Pulse Pulse Resp BP Pulse Ox 08/08/21 11:53 36.7 C 82 20 116/72 94 08/08/21 11:25 62 18 95 08/08/21 07:40 58 L 18 98 08/08/21 07:25 36.6 C 58 L 20 116/66 100 08/08/21 07:23 60 08/08/21 03:51 36.4 C L 63 18 132/83 99 08/08/21 03:15 66 20 97 Laboratory Results 08/08/21 08/08/21 08/08/21 Range/Units 11:13 07:08 05:47 WBC (4.8-10.8) K/uL RBC (4.7-6.1) M/uL Hgb (14.0-18.0) g/dL Hct (42-52) % MCV (80-100) fL MCH (25-34) pg MCHC (32-36) g/dL RDW Std Deviation (36.4-46.3) fL RDW Coeff of Raquel (11.5-14.5) % Plt Count (130-400) K/uL MPV (7.4-10.4) fL Immature Gran % (Auto) % Neut % (Auto) % Lymph % (Auto) % Branch % (Auto) % Eos % (Auto) % Baso % (Auto) % Neut # (Auto) (1.4-6.5) K/uL Lymph # (Auto) (1.2-3.4) K/uL Branch # (Auto) (0.11-0.59) K/uL Eos # (Auto) (0-0.5) K/uL Baso # (Auto) (0-0.2) K/uL Immature Gran # (Auto) (0.00-0.02) K/uL Sodium 142 (136-145) mmol/L Potassium 3.8 (3.5-5.1) mmol/L Chloride 101 (98-107) mmol/L Carbon Dioxide 37 H (21-32) mmol/L Anion Gap 4.0 (3-11) BUN 22 H (7-18) mg/dl Creatinine 0.68 (0.6-1.4) mg/dl Est Cr Clr Drug Dosing 148.9 ml/min Est GFR ( Amer) 112.9 ml/min Est GFR (Non-Af Amer) 97.4 ml/min BUN/Creatinine Ratio 32.9 H (10-20) Glucose 131 H (70-99) mg/dl POC Glucose 122 H 135 H (70-99) mg/dl Calcium 9.3 (8.5-10.1) mg/dl 08/08/21 08/07/21 08/07/21 Range/Units 05:47 21:09 16:19 WBC 8.80 (4.8-10.8) K/uL RBC 3.45 L (4.7-6.1) M/uL Hgb 8.9 L (14.0-18.0) g/dL Hct 31.1 L (42-52) % MCV 90.1 (80-100) fL MCH 25.8 (25-34) pg MCHC 28.6 L (32-36) g/dL RDW Std Deviation 56.7 H (36.4-46.3) fL RDW Coeff of Raquel 17.7 H (11.5-14.5) % Plt Count 385 (130-400) K/uL MPV 10.2 (7.4-10.4) fL Immature Gran % (Auto) 0.9 % Neut % (Auto) 65.4 % Lymph % (Auto) 23.4 % Branch % (Auto) 5.9 % Eos % (Auto) 4.4 % Baso % (Auto) 0.0 % Neut # (Auto) 5.75 (1.4-6.5) K/uL Lymph # (Auto) 2.06 (1.2-3.4) K/uL Branch # (Auto) 0.52 (0.11-0.59) K/uL Eos # (Auto) 0.39 (0-0.5) K/uL Baso # (Auto) 0.00 (0-0.2) K/uL Immature Gran # (Auto) 0.08 H (0.00-0.02) K/uL Sodium (136-145) mmol/L Potassium (3.5-5.1) mmol/L Chloride (98-107) mmol/L Carbon Dioxide (21-32) mmol/L Anion Gap (3-11) BUN (7-18) mg/dl Creatinine (0.6-1.4) mg/dl Est Cr Clr Drug Dosing ml/min Est GFR ( Amer) ml/min Est GFR (Non-Af Amer) ml/min BUN/Creatinine Ratio (10-20) Glucose (70-99) mg/dl POC Glucose 148 H 129 H (70-99) mg/dl Calcium (8.5-10.1) mg/dl
[2021-08-08] MEDS: ACETAMINOPHEN 325 MG TAB PO PRN (15:46)
--- NOTE | 2021-08-08 16:14 | Hospitalist Progress Note ---
Date of Service August 08, 2021 Assessment & Plan (1) Abscess: Plan: Dispo: Greatly improved following revision of wound and switch to Avycaz for MDR pseudomonas. Anaerobic GPC also grown. ultrasound guided IV placed. Patient cleared for outpatient follow-up and wound care follow-up per surgery. Bed hold, diuresing CHF anticipate discharge at return to baseline/stable oxygen levels Right low back abscess 2/2 polymicrobial infection, including Pseudomonas Drained and irrigated 07/31 by surgical team. Debrided 08/03 as below. Leukocytosis normalized 08/02 Hemoglobin stable Wound culture positive for MDR Pseudomonas. Prior antibiotics ineffective due to resistance. Abx switched to Avycaz with FLagyl for anerobe coverage on 08/05/2021 Continue Avycaz/Flagyl. Anticipate 14-day treatment with reevaluation of wound to end of treatment course. - BID wet to dry dressing 3 x 7 cm abscess with purulent drainage and necrotic overlying skin. Successfully debrided back to healthy tissue 08/03. - Contact for MDR Pseudomonas Clinical course improved (2) Acute hypoxemic respiratory failure: Plan: 2/2 acute on chronic CHF 08/08 CXR:Cardiomegaly with pulmonary vascular congestion. Small pleural effusions with mild bibasilar opacities favoring atelectasis. diuresis with Lasix IV, good output today, creatinine stable Continue incentive spirometry - Hypoventiliation when pt not wearing CPAP/BiPAP -Continue CPAP/BiPAP nightly and as needed (3) Sepsis: Plan: SIRS 2, Qsofa-2 On admission, resolved Leukocytosis normalized, lactate negative, pro-John negative Fluids discontinued Source control as above Antibiotics as above (4) HLD (hyperlipidemia): Plan: Atorvastatin 40mg daily (5) Seizure: Plan: Continue with Depakote (6) Obstructive lung disease: Plan: Past smoker quit in 2012 per - Continue albuterol - Continue Theophylline - Serum level normal - Abx as noted (7) HTN (hypertension): Plan: Continue metoprolol as long as remains normotensive (8) Diabetes: Plan: Continue Lantus - Aspart sliding scale- CF 20, ratio 1:9 (9) Dementia: Plan: Cotninue with aricept (10) Renal stones: Plan: Oxalate stone in urine- noted on CT scan- numerous - noted with right sided hydronephrosis- with possible UPJ obstruction - Urology consulted. Do not recommend any acute intervention, manage chronic hydro as outpatient, continue antibiotics, maintain Valerio catheter (11) Abnormal CT scan: Plan: Mild non-specific infiltration around pancreatic tail - lipase pending - no abdominal pain or other symptoms consistent with acute pancreatitis - follow clinically (12) Infection with Pseudomonas aeruginosa resistant to multiple drugs: Plan: - See above Admission and Anticipated Discharge Date Admission Date: July 31, 2021 Subjective Wound VAC replaced today. Patient feels clinically improved, reduced back pain although some still present today. Denies shortness of breath on oxygen, no oxygen at rehab previously. Denies cough. Denies fever/chills/sweats. Review of Systems Review of Systems: 10 point review of systems negative except as noted in HPI Physical Exam Physical Exam: General: A&Ox3. NAD. Cooperative. Awake. HEENT: Atraumatic, normocephalic. Visual acuity and hearing intact. Pulm: Basilar crackles, diminished -rhonchi. Symmetrical chest rise. No increase work of breathing. No respiratory distress. Cardiac: RRR, -mrg. Radial pulses intact and symmetrical. Abdominal: Nontender, nondistended, soft. BS present. Back: Wound VAC in place. No surrounding erythema/minimal tenderness, no discharge. Results & Data Results & Data ([facility]) Vital Signs (Past 12 Hours) Vital Signs Temp Pulse Pulse Pulse Resp BP Pulse Ox 08/08/21 15:54 65 08/08/21 15:41 62 18 95 08/08/21 15:34 37.0 C 65 18 99/63 L 93 08/08/21 11:53 36.7 C 82 20 116/72 94 08/08/21 11:25 62 18 95 08/08/21 07:40 58 L 18 98 08/08/21 07:25 36.6 C 58 L 20 116/66 100 08/08/21 07:23 60 PG Care Time/CCT Total # of Minutes Spent Total Time Spent with Patient: Total time spent is greater than 50% in coordination of care (as documented) at patient's floor/unit and/or counseling patient: Coding Level of Care Code 21531 Subseq Hosp Care Lvl 2 Diagnoses Abscess L02.91 Sepsis A41.9 Acute hypoxemic respiratory failure J96.01 HLD (hyperlipidemia) E78.5 Seizure R56.9 Obstructive lung disease J44.9 HTN (hypertension) I10 Diabetes E11.9 Dementia F03.90 Renal stones N20.[address] scan R93.89 Infection with Pseudomonas aeruginosa resistant to multiple drugs A49.8; Z16.24
[2021-08-08] MEDS: INSULIN GLARGINE SOLOSTAR 100 UNITS/ML 3 ML PEN SQ SCH (20:33)
[2021-08-08] MEDS: ATORVASTATIN 40 MG TAB PO SCH (20:38)
[2021-08-08] MEDS: QUEtiapine FUMARATE 25 MG TABLET PO SCH (20:39)
[2021-08-09] MEDS: metroNIDAZOLE 500 MG/100 ML BAG IV SCH ×3 (01:56→18:20)
[2021-08-09 06:58] LABS: Basophils # (auto) 0.01 K/uL (0-0.2); Basophils % (auto) 0.1 %; Eosinophils # (auto) 0.54 K/uL (0-0.5); Hematocrit (blood only) 33.4 % (42-52); Hemoglobin 9.8 g/dL (14.0-18.0); Immature Granulocytes # (auto) 0.06 K/uL (0.00-0.02); Immature Granulocytes % (auto) 0.7 %; Lymphocytes # (auto) 1.99 K/uL (1.2-3.4); Mean Corpuscular Hgb Conc 29.3 g/dL (32-36); Mean Corpuscular Volume 88.6 fL (80-100); Mean Platelet Volume 10.7 fL (7.4-10.4); Monocytes # (auto) 0.49 K/uL (0.11-0.59); Monocytes % (auto) 5.4 %; Neutrophils # (auto) 5.94 K/uL (1.4-6.5); Neutrophils % (auto) 65.8 %; Platelet Count 379 K/uL (130-400); RDW Coefficient of Variation 18.1 % (11.5-14.5); RDW Standard Deviation 57.1 fL (36.4-46.3); Red Blood Count 3.77 M/uL (4.7-6.1); White Blood Count 9.03 K/uL (4.8-10.8)
[2021-08-09 07:32] LABS: BUN Creatinine Ratio 42.4 (10-20); Calcium 9.4 mg/dl (8.5-10.1); Creatinine Clr Calc Pharmacy 164.4 ml/min; Est GFR (African American) 117.3 ml/min; Est GFR (Non-African American) 101.2 ml/min; Potassium 3.5 mmol/L (3.5-5.1)
[2021-08-09] MEDS: HEPARIN SOD 5,000 UNIT/0.5 ML VIAL SQ SCH ×2 (07:47→22:12)
[2021-08-09] MEDS: DONEPEZIL HCL 5 MG TAB PO SCH (07:47)
[2021-08-09] MEDS: METOPROLOL TARTRATE 25 MG TAB PO SCH ×2 (07:47→21:43)
[2021-08-09] MEDS: SERTRALINE HCL 100 MG TABLET PO SCH (07:48)
[2021-08-09] MEDS: INSULIN ASPART 100 UNITS/ML 3 ML PEN SC SCH ×4 (07:48→21:45)
[2021-08-09] MEDS: Albuterol HFA 8 GM Inhaler (Combivent Respimat P&T Subs) INH SCH ×4 (08:00→19:50)
[2021-08-09] MEDS: Ipratropium HFA Inhaler (Combivent Respimat P&T Subs) INH SCH ×4 (08:00→19:51)
[2021-08-09] MEDS: FUROSEMIDE 20 MG in SYRINGE 0 ML IV SCH (10:04)
--- NOTE | 2021-08-09 13:48 | Hospitalist Progress Note ---
Date of Service August 09, 2021 Assessment & Plan (1) Abscess: Plan: Right low back abscess 2/2 polymicrobial infection, including Pseudomonas. Drained and irrigated 07/31 by surgical team. Debrided 08/03 as below. Leukocytosis normalized 08/02 Hemoglobin stable Wound culture positive for MDR Pseudomonas. Prior antibiotics ineffective due to resistance. Abx switched to Avycaz with Flagyl for anaerobe coverage on 08/05/2021. Continue Avycaz/Flagyl. Anticipate 14-day treatment with reevaluation of wound to end of treatment course. - BID wet to dry dressing 3 x 7 cm abscess with purulent drainage and necrotic overlying skin. Successfully debrided back to healthy tissue 08/03. - Contact for MDR Pseudomonas Clinical course improved Dispo: Plan to return to [facility] once they have a wound vac available. Demet[facility] Shen will not send ours to loan them. Maybe tomorrow. (2) Acute hypoxemic respiratory failure: Plan: 2/2 acute on chronic CHF 08/08 CXR:Cardiomegaly with pulmonary vascular congestion. Small pleural effusions with mild bibasilar opacities favoring atelectasis. Diuresed with Lasix IV - Hypoventilation when pt not wearing CPAP/BiPAP - Continue CPAP/BiPAP nightly and as needed - On 08/09, switched to Lasix 20 mg PO daily -> No swelling on legs, breathing comfortably on low nasal cannula. Likely euvolemic. (3) Sepsis: Plan: SIRS 2, Qsofa-2 On admission, resolved Leukocytosis normalized, lactate negative, pro-John negative Fluids discontinued Source control as above Antibiotics as above (4) HLD (hyperlipidemia): Plan: Atorvastatin 40mg daily (5) Seizure: Plan: Continue with Depakote (6) Obstructive lung disease: Plan: Past smoker quit in 2012 per - Continue albuterol - Continue Theophylline - Serum level normal - Abx as noted (7) HTN (hypertension): Plan: BP 111/75 today. - Continue metoprolol as long as remains normotensive (8) Diabetes: Plan: Continue Lantus - Aspart sliding scale- CF 20, ratio 1:9 (9) Dementia: Plan: Cotninue with aricept (10) Renal stones: Plan: Oxalate stone in urine- noted on CT scan- numerous - noted with right sided hydronephrosis- with possible UPJ obstruction - Urology consulted. Do not recommend any acute intervention, manage chronic hydro as outpatient, continue antibiotics, maintain Valerio catheter. - Given duration of Valerio at this point, will attempt voiding trial. - Restart home terazosin (11) Infection with Pseudomonas aeruginosa resistant to multiple drugs: Plan: - See above Admission and Anticipated Discharge Date Admission Date: July 31, 2021 Subjective Feeling ok today. No shortness of breath. No swelling on legs. Reports no fevers/chills, chest pain, shortness of breath, abdominal pain, nausea, or vomiting. Physical Exam Constitutional: WD/WN, vitals as above + obese Eyes: EOM intact bilaterally; no conjunctival abnormality ENMT: external ear and nose normal, oropharynx normal Neck: trachea midline, no thyromegaly normal visual inspection Respiratory: normal respiratory effort, lungs clear to auscultation no respiratory distress Cardiovascular: RRR, no murmur, no edema Gastrointestinal (Abdomen): Inspection/Auscultation: abdomen normal to inspection; abdomen not distended Musculoskeletal: no cyanosis or clubbing, extremities motor strength 5/5 Skin: no rashes, warm and dry Neurologic: moves all extremities and awake Psychiatric: Orientation: alert, oriented to person and cooperative Results & Data Results & Data ([facility]) Vital Signs (Past 12 Hours) Vital Signs Temp Pulse Pulse Resp BP BP Pulse Ox 08/09/21 11:02 74 18 94 08/09/21 10:33 36.7 C 73 20 111/73 94 08/09/21 08:01 78 20 95 08/09/21 07:08 36.6 C 67 17 121/83 97 08/09/21 07:00 36.7 C 66 87 18 95 08/09/21 05:34 60 120/75 99 08/09/21 04:05 70 24 100 08/09/21 04:02 36.5 C 76 25 H 131/80 96 PG Care Time/CCT Total # of Minutes Spent Total Time Spent with Patient: Total time spent is greater than 50% in coordination of care (as documented) at patient's floor/unit and/or counseling patient: Coding Level of Care Code 04481 Subseq Hosp Care Lvl 2 Diagnoses Abscess L02.91 Acute hypoxemic respiratory failure J96.01 Sepsis A41.9 HLD (hyperlipidemia) E78.5 Seizure R56.9 Obstructive lung disease J44.9 HTN (hypertension) I10 Diabetes E11.9 Dementia F03.90 Renal stones N20.0 Infection with Pseudomonas aeruginosa resistant to multiple drugs A49.8; Z16.24
[2021-08-09] MEDS: ACETAMINOPHEN 325 MG TAB PO PRN (15:14)
[2021-08-09] MEDS: TERAZOSIN HCL 1 MG CAP PO SCH (21:43)
[2021-08-09] MEDS: INSULIN GLARGINE SOLOSTAR 100 UNITS/ML 3 ML PEN SQ SCH (21:45)
[2021-08-09] MEDS: QUEtiapine FUMARATE 25 MG TABLET PO SCH (22:11)
[2021-08-09] MEDS: ATORVASTATIN 40 MG TAB PO SCH (22:12)
[2021-08-10] MEDS: metroNIDAZOLE 500 MG/100 ML BAG IV SCH ×3 (03:50→18:32)
[2021-08-10 05:59] LABS: Hematocrit (blood only) 33.4 % (42-52); Hemoglobin 9.7 g/dL (14.0-18.0); Mean Corpuscular Volume 89.5 fL (80-100); Mean Platelet Volume 9.9 fL (7.4-10.4); Platelet Count 321 K/uL (130-400); RDW Coefficient of Variation 18.1 % (11.5-14.5); RDW Standard Deviation 57.6 fL (36.4-46.3); Red Blood Count 3.73 M/uL (4.7-6.1); White Blood Count 8.71 K/uL (4.8-10.8)
[2021-08-10 06:39] LABS: BUN Creatinine Ratio 36.1 (10-20); Calcium 9.1 mg/dl (8.5-10.1); Creatinine Clr Calc Pharmacy 149.9 ml/min; Est GFR (African American) 112.9 ml/min; Est GFR (Non-African American) 97.4 ml/min; Magnesium 2.3 mg/dl (1.8-2.4); Potassium 3.5 mmol/L (3.5-5.1)
[2021-08-10] MEDS: Albuterol HFA 8 GM Inhaler (Combivent Respimat P&T Subs) INH SCH ×4 (07:19→20:05)
[2021-08-10] MEDS: Ipratropium HFA Inhaler (Combivent Respimat P&T Subs) INH SCH ×4 (07:19→20:05)
[2021-08-10] MEDS: SERTRALINE HCL 100 MG TABLET PO SCH (09:13)
[2021-08-10] MEDS: DONEPEZIL HCL 5 MG TAB PO SCH (09:13)
[2021-08-10] MEDS: METOPROLOL TARTRATE 25 MG TAB PO SCH ×2 (09:14→21:21)
[2021-08-10] MEDS: HEPARIN SOD 5,000 UNIT/0.5 ML VIAL SQ SCH ×2 (09:15→21:19)
[2021-08-10] MEDS: FUROSEMIDE 20 MG TAB PO SCH (09:15)
[2021-08-10] MEDS: INSULIN ASPART 100 UNITS/ML 3 ML PEN SC SCH ×4 (09:19→21:24)
[2021-08-10] MEDS: HYDROmorphone INJ 0.5 MG/0.5 ML SYR IV PRN (10:04)
--- NOTE | 2021-08-10 12:21 | Hospitalist Progress Note ---
Date of Service August 10, 2021 Assessment & Plan (1) Abscess: Plan: Attending: Dr. Shaheed Banuelos: Greatly improved following revision of wound and switch to Avycaz for MDR pseudomonas. Anaerobic GPC also grown. ultrasound guided IV placed. Patient cleared for outpatient follow-up and wound care follow-up per surgery. Bed hold, diuresing CHF anticipate discharge at return to baseline/stable oxygen levels Right low back abscess 2/2 polymicrobial infection, including Pseudomonas Drained and irrigated 07/31 by surgical team. Debrided 08/03 as below. Leukocytosis normalized 08/02 Hemoglobin stable Wound culture positive for MDR Pseudomonas. Prior antibiotics ineffective due to resistance. Abx switched to Avycaz with FLagyl for anerobe coverage on 2020 Continue Avycaz/Flagyl. Anticipate 14-day treatment (complete on 08/19/2021) with reevaluation of wound by surgery to determine end of treatment course. -Dressings per wound care. Wound VAC in place. 3 x 7 cm abscess with purulent drainage and necrotic overlying skin. Successfully debrided back to healthy tissue 08/03. - Contact for MDR Pseudomonas Clinical course improved (2) Acute hypoxemic respiratory failure: Plan: Acute on chronic CHF 08/08 CXR:Cardiomegaly with pulmonary vascular congestion. Small pleural eff usions with mild bibasilar opacities favoring atelectasis. diuresis with Lasix IV, good output, creatinine stable Continue incentive spirometry - Hypoventiliation when pt not wearing CPAP/BiPAP -Continue CPAP/BiPAP nightly and as needed -Encourage out of bed to chair (3) Sepsis: Plan: SIRS 2, Qsofa-2 On admission, resolved Leukocytosis normalized, lactate negative, pro-John negative Fluids discontinued Source control as above Antibiotics as above (4) HLD (hyperlipidemia): Plan: Atorvastatin 40mg daily (5) Seizure: Plan: Continue with Depakote (6) Obstructive lung disease: Plan: Past smoker - quit in 2011 per - Continue albuterol - Continue Theophylline -Theophylline serum level normal at 10 mcg/mL - Abx as noted (7) HTN (hypertension): Plan: Continue metoprolol as long as remains normotensive (8) Diabetes: Plan: -Continue Lantus -Continue NovoLog sliding scale insulin (9) Dementia: Plan: Cotninue with aricept (10) Renal stones: Plan: Oxalate stone in urine- noted on CT scan- numerous - noted with right sided hydronephrosis- with possible UPJ obstruction - Urology consulted. Do not recommend any acute intervention, manage chronic hydro as outpatient, continue antibiotics, maintain Valerio catheter -We will need follow-up in urology office (11) Abnormal CT scan: Plan: Mild non-specific infiltration around pancreatic tail - lipase pending - no abdominal pain or other symptoms consistent with acute pancreatitis - follow clinically (12) Infection with Pseudomonas aeruginosa resistant to multiple drugs: Plan: - See above Plan: Disposition: Bed hold at [facility]. Anticipate discharge tomorrow if IV antibiotics can be maintained. Admission and Anticipated Discharge Date Admission Date: July 31, 2021 Subjective Attending: Dr. Hummel Patient seen and examined in room 305. Wound VAC is in place and draining. Patient reports the pain is controlled. No fever, chills, sweats, rigors. No nausea or vomiting. Patient reports that he is from [facility] and he was placed there by his . Any questions regarding stay are to be directed to his . Patient has no acute complaints today. Review of Systems Review of Systems: All systems reviewed & are unremarkable except as noted in Subjective Physical Exam Physical Exam: GENERAL : No acute distress. Pleasant EYES: No icterus, gaze conjugate NOSE: No evidence of epistaxis MOUTH: No lesions or candidiasis NECK: Supple LUNGS: CTA B/L, no wheezes, rales or rhonchi. Good inspirational effort HEART: Regular, rate controlled ABDOMEN: Soft, NT, ND, BS Present EXTREMITIES: No LE edema, pedal pulses intact and equal bilaterally BACK: Wound VAC in place and draining appropriately NEURO: A&OX3 Results & Data Results & Data ([facility]) Vital Signs (Past 12 Hours) Vital Signs Temp Pulse Pulse Pulse Resp BP BP 08/10/21 10:25 69 16 08/10/21 09:11 75 104/67 08/10/21 07:26 37 C 60 20 107/70 08/10/21 07:20 78 18 08/10/21 03:21 64 20 Pulse Ox 08/10/21 10:25 92 08/10/21 09:11 08/10/21 07:26 94 08/10/21 07:20 94 08/10/21 03:21 95 Laboratory Results 08/10/21 05:27 08/10/21 05:27 Diagnostic Findings No further diagnostics PG Care Time/CCT Total # of Minutes Spent Total Time Spent with Patient: Total time spent is greater than 50% in coordination of care (as documented) at patient's floor/unit and/or counseling patient: 30 minutes Coding Level of Care Code 94939 Subseq Hosp Care Lvl 2 Diagnoses Abscess L02.91 Acute hypoxemic respiratory failure J96.01 Sepsis A41.9 HLD (hyperlipidemia) E78.5 Seizure R56.9 Obstructive lung disease J44.9 HTN (hypertension) I10 Diabetes E11.9 Dementia F03.90 Renal stones N20.[address] scan R93.89 Infection with Pseudomonas aeruginosa resistant to multiple drugs A49.8; Z16.24 Time Spent (min) 30
[2021-08-10] MEDS ORDERED: FUROSEMIDE 40 MG in SYRINGE 0 ML IV ONE (16:15)
[2021-08-10] MEDS: ACETAMINOPHEN 325 MG TAB PO PRN (17:28)
[2021-08-10] MEDS: QUEtiapine FUMARATE 25 MG TABLET PO SCH (21:21)
[2021-08-10] MEDS: TERAZOSIN HCL 1 MG CAP PO SCH (21:22)
[2021-08-10] MEDS: ATORVASTATIN 40 MG TAB PO SCH (21:22)
[2021-08-10] MEDS: INSULIN GLARGINE SOLOSTAR 100 UNITS/ML 3 ML PEN SQ SCH (21:25)
[2021-08-11] MEDS: metroNIDAZOLE 500 MG/100 ML BAG IV SCH ×3 (02:12→18:45)
[2021-08-11 06:05] LABS: Hematocrit (blood only) 31.9 % (42-52); Hemoglobin 9.5 g/dL (14.0-18.0); Mean Corpuscular Hemoglobin 27.1 pg (25-34); Mean Corpuscular Hgb Conc 29.8 g/dL (32-36); Mean Corpuscular Volume 91.1 fL (80-100); Mean Platelet Volume 10.9 fL (7.4-10.4); Platelet Count 313 K/uL (130-400); RDW Coefficient of Variation 18.7 % (11.5-14.5); RDW Standard Deviation 60.9 fL (36.4-46.3); White Blood Count 8.25 K/uL (4.8-10.8)
[2021-08-11 06:38] LABS: BUN Creatinine Ratio 35.2 (10-20); Calcium 9.2 mg/dl (8.5-10.1); Creatinine Clr Calc Pharmacy 156.8 ml/min; Est GFR (African American) 115.1 ml/min; Est GFR (Non-African American) 99.3 ml/min
[2021-08-11] MEDS: Ipratropium HFA Inhaler (Combivent Respimat P&T Subs) INH SCH ×5 (07:10→21:37)
[2021-08-11] MEDS: Albuterol HFA 8 GM Inhaler (Combivent Respimat P&T Subs) INH SCH ×5 (07:10→19:43)
[2021-08-11 07:25] LABS: Estimated Average Glucose 148 mg/dl; Hemoglobin A1C 6.8 % (4.5-5.6)
[2021-08-11] MEDS: INSULIN ASPART 100 UNITS/ML 3 ML PEN SC SCH ×4 (09:48→21:04)
[2021-08-11] MEDS: METOPROLOL TARTRATE 25 MG TAB PO SCH ×2 (09:49→21:02)
[2021-08-11] MEDS: SERTRALINE HCL 100 MG TABLET PO SCH (09:50)
[2021-08-11] MEDS: HEPARIN SOD 5,000 UNIT/0.5 ML VIAL SQ SCH ×2 (09:50→21:04)
[2021-08-11] MEDS: DONEPEZIL HCL 5 MG TAB PO SCH (09:50)
[2021-08-11] MEDS: FUROSEMIDE 20 MG TAB PO SCH (09:50)
[2021-08-11] MEDS ORDERED: Influenza Vaccine-High Dose (Fluzone-HD) PF 65+ 0.7 ML SYR IM ONE (12:15)
[2021-08-11] MEDS: ATORVASTATIN 40 MG TAB PO SCH (21:03)
[2021-08-11] MEDS: TERAZOSIN HCL 1 MG CAP PO SCH (21:03)
[2021-08-11] MEDS: QUEtiapine FUMARATE 25 MG TABLET PO SCH (21:04)
[2021-08-11] MEDS: INSULIN GLARGINE SOLOSTAR 100 UNITS/ML 3 ML PEN SQ SCH (21:06)
[2021-08-12] MEDS: metroNIDAZOLE 500 MG/100 ML BAG IV SCH (02:36)
[2021-08-12] MEDS: Ipratropium HFA Inhaler (Combivent Respimat P&T Subs) INH SCH ×4 (07:20→19:33)
[2021-08-12] MEDS: Albuterol HFA 8 GM Inhaler (Combivent Respimat P&T Subs) INH SCH ×4 (07:21→19:34)
[2021-08-12] MEDS: SERTRALINE HCL 100 MG TABLET PO SCH (09:47)
[2021-08-12] MEDS: FUROSEMIDE 20 MG TAB PO SCH (09:47)
[2021-08-12] MEDS: DONEPEZIL HCL 5 MG TAB PO SCH (09:48)
[2021-08-12] MEDS: HEPARIN SOD 5,000 UNIT/0.5 ML VIAL SQ SCH ×2 (09:48→21:36)
[2021-08-12] MEDS: METOPROLOL TARTRATE 25 MG TAB PO SCH ×2 (09:51→21:23)
[2021-08-12] MEDS: INSULIN ASPART 100 UNITS/ML 3 ML PEN SC SCH ×4 (09:53→21:28)
[2021-08-12] MEDS: HYDROmorphone INJ 0.5 MG/0.5 ML SYR IV PRN (10:39)
--- NOTE | 2021-08-12 20:40 | Hospitalist Progress Note ---
Date of Service August 12, 2021 Assessment & Plan (1) Abscess: Plan: Attending: Dr. Shaheed Banuelos: Greatly improved following revision of wound and switch to Avycaz for MDR pseudomonas. Anaerobic GPC also grown. ultrasound guided IV placed. Patient cleared for outpatient follow-up and wound care follow-up per surgery. Bed hold, diuresing CHF anticipate discharge at return to baseline/stable oxygen levels Right low back abscess 2/2 polymicrobial infection, including Pseudomonas Drained and irrigated 07/31 by surgical team. Debrided 08/03 as below. Leukocytosis normalized 08/02 Hemoglobin stable Wound culture positive for MDR Pseudomonas. Prior antibiotics ineffective due to resistance. Abx switched to Avycaz with FLagyl for anerobe coverage on 08/05/2021 Continue Avycaz/Flagyl. Anticipate 14-day treatment (complete on 08/19/2021) with reevaluation of wound by surgery to determine end of treatment course. -Dressings per wound care. Wound VAC in place. 3 x 7 cm abscess with purulent drainage and necrotic overlying skin. Successfully debrided back to healthy tissue 08/03. - Contact for MDR Pseudomonas Clinical course improved Due to sahu of antibiotics, patient will need to stay in the hospital until antibiotic course has been completed. (2) Acute hypoxemic respiratory failure: Plan: Acute on chronic CHF 08/08 CXR:Cardiomegaly with pulmonary vascular congestion. Small pleural effusions with mild bibasilar opacities favoring atelectasis. diuresis with Lasix IV, good output, creatinine stable Continue incentive spirometry - Hypoventiliation when pt not wearing CPAP/BiPAP -Continue CPAP/BiPAP nightly and as needed -Encourage out of bed to chair (3) Sepsis: Plan: SIRS 2, Qsofa-2 On admission, resolved Leukocytosis normalized, lactate negative, pro-John negative Fluids discontinued Source control as above Antibiotics as above (4) HLD (hyperlipidemia): Plan: Atorvastatin 40mg daily (5) Seizure: Plan: Continue with Depakote (6) Obstructive lung disease: Plan: Past smoker - quit in 2011 per - Continue albuterol - Continue Theophylline -Theophylline serum level normal at 10 mcg/mL - Abx as noted (7) HTN (hypertension): Plan: Continue metoprolol as long as remains normotensive (8) Diabetes: Plan: -Continue Lantus -Continue NovoLog sliding scale insulin (9) Dementia: Plan: Cotninue with aricept (10) Renal stones: Plan: Oxalate stone in urine- noted on CT scan- numerous - noted with right sided hydronephrosis- with possible UPJ obstruction - Urology consulted. Do not recommend any acute intervention, manage chronic hydro as outpatient, continue antibiotics, maintain Valerio catheter -We will need follow-up in urology office (11) Abnormal CT scan: Plan: Mild non-specific infiltration around pancreatic tail - lipase pending - no abdominal pain or other symptoms consistent with acute pancreatitis - follow clinically (12) Infection with Pseudomonas aeruginosa resistant to multiple drugs: Plan: - See above Plan: Disposition: Bed hold at [facility]. Anticipate discharge tomorrow if IV antibiotics can be maintained. Admission and Anticipated Discharge Date Admission Date: July 31, 2021 Subjective Patient reports no new symptoms. Review of Systems Review of Systems: All systems reviewed & are unremarkable except as noted in HPI & below Physical Exam Physical Exam: GENERAL : No acute distress. Pleasant EYES: No icterus, gaze conjugate NOSE: No evidence of epistaxis MOUTH: No lesions or candidiasis NECK: Supple LUNGS: CTA B/L, no wheezes, rales or rhonchi. Good inspirational effort HEART: Regular, rate controlled ABDOMEN: Soft, NT, ND, BS Present EXTREMITIES: No LE edema, pedal pulses intact and equal bilaterally BACK: Wound VAC in place and draining appropriately NEURO: A&OX3 Results & Data Results & Data ([facility]) Vital Signs (Past 12 Hours) Vital Signs Temp Pulse Resp BP Pulse Ox 08/12/21 19:36 74 20 94 08/12/21 16:08 37.3 C 63 16 99/59 L 95 08/12/21 15:08 77 18 96 08/12/21 11:20 71 18 95 PG Care Time/CCT Total # of Minutes Spent Total Time Spent with Patient: Total time spent is greater than 50% in coordination of care (as documented) at patient's floor/unit and/or counseling patient: Coding Level of Care Code 42440 Subseq Hosp Care Lvl 2 Diagnoses Abscess L02.91 Acute hypoxemic respiratory failure J96.01 Sepsis A41.9 HLD (hyperlipidemia) E78.5 Seizure R56.9 Obstructive lung disease J44.9 HTN (hypertension) I10 Diabetes E11.9 Dementia F03.90 Renal stones N20.[address] scan R93.89 Infection with Pseudomonas aeruginosa resistant to multiple drugs A49.8; Z16.24 Time Spent (min) 25
[2021-08-12] MEDS: TERAZOSIN HCL 1 MG CAP PO SCH (21:23)
[2021-08-12] MEDS: INSULIN GLARGINE SOLOSTAR 100 UNITS/ML 3 ML PEN SQ SCH (21:27)
[2021-08-12] MEDS: QUEtiapine FUMARATE 25 MG TABLET PO SCH (21:36)
[2021-08-12] MEDS: ATORVASTATIN 40 MG TAB PO SCH (21:36)
[2021-08-13] MEDS: Albuterol HFA 8 GM Inhaler (Combivent Respimat P&T Subs) INH SCH ×4 (07:32→19:32)
[2021-08-13] MEDS: Ipratropium HFA Inhaler (Combivent Respimat P&T Subs) INH SCH ×4 (07:33→19:32)
[2021-08-13] MEDS: FUROSEMIDE 20 MG TAB PO SCH (09:59)
[2021-08-13] MEDS: DONEPEZIL HCL 5 MG TAB PO SCH (10:00)
[2021-08-13] MEDS: HEPARIN SOD 5,000 UNIT/0.5 ML VIAL SQ SCH ×2 (10:01→20:21)
[2021-08-13] MEDS: METOPROLOL TARTRATE 25 MG TAB PO SCH ×2 (10:11→20:21)
[2021-08-13] MEDS: SERTRALINE HCL 100 MG TABLET PO SCH (10:13)
[2021-08-13] MEDS: INSULIN ASPART 100 UNITS/ML 3 ML PEN SC SCH ×4 (10:24→22:08)
[2021-08-13] MEDS: ACETAMINOPHEN 325 MG TAB PO PRN ×3 (10:32→19:55)
[2021-08-13] MEDS ORDERED: LORazepam 1 MG TAB SL STA (14:19)
[2021-08-13] MEDS: TERAZOSIN HCL 1 MG CAP PO SCH (20:20)
[2021-08-13] MEDS: QUEtiapine FUMARATE 25 MG TABLET PO SCH (20:20)
[2021-08-13] MEDS: ATORVASTATIN 40 MG TAB PO SCH (20:21)
--- NOTE | 2021-08-13 20:36 | Hospitalist Progress Note ---
Date of Service August 13, 2021 Assessment & Plan (1) Abscess: Plan: Attending: Dr. Shaheed Banuelos: Greatly improved following revision of wound and switch to Avycaz for MDR pseudomonas. Anaerobic GPC also grown. ultrasound guided IV placed. Patient cleared for outpatient follow-up and wound care follow-up per surgery. Bed hold, diuresing CHF anticipate discharge at return to baseline/stable oxygen levels Right low back abscess 2/2 polymicrobial infection, including Pseudomonas Drained and irrigated 07/31 by surgical team. Debrided 08/03 as below. Leukocytosis normalized 08/02 Hemoglobin stable Wound culture positive for MDR Pseudomonas. Prior antibiotics ineffective due to resistance. Abx switched to Avycaz with FLagyl for anerobe coverage on 08/05/2021 Continue Avycaz/Flagyl. Anticipate 14-day treatment (complete on 08/19/2021) with reevaluation of wound by surgery to determine end of treatment course. -Dressings per wound care. Wound VAC in place. 3 x 7 cm abscess with purulent drainage and necrotic overlying skin. Successfully debrided back to healthy tissue 08/03. - Contact for MDR Pseudomonas Clinical course improved Due to sahu of antibiotics, patient will need to stay in the hospital until antibiotic course has been completed. Multiple encounter today. Patient lost IV access, initially was refusing IV access. But later was amicable to trying again. Patient received Ultrasound guided IV access. (2) Acute hypoxemic respiratory failure: Plan: Acute on chronic CHF 08/08 CXR:Cardiomegaly with pulmonary vascular congestion. Small pleural effu sions with mild bibasilar opacities favoring atelectasis. diuresis with Lasix IV, good output, creatinine stable Continue incentive spirometry - Hypoventiliation when pt not wearing CPAP/BiPAP -Continue CPAP/BiPAP nightly and as needed -Encourage out of bed to chair (3) Sepsis: Plan: SIRS 2, Qsofa-2 On admission, resolved Leukocytosis normalized, lactate negative, pro-John negative Fluids discontinued Source control as above Antibiotics as above (4) HLD (hyperlipidemia): Plan: Atorvastatin 40mg daily (5) Seizure: Plan: Continue with Depakote (6) Obstructive lung disease: Plan: Past smoker - quit in 2011 per - Continue albuterol - Continue Theophylline -Theophylline serum level normal at 10 mcg/mL - Abx as noted (7) HTN (hypertension): Plan: Continue metoprolol as long as remains normotensive (8) Diabetes: Plan: -Continue Lantus -Continue NovoLog sliding scale insulin (9) Dementia: Plan: Cotninue with aricept (10) Renal stones: Plan: Oxalate stone in urine- noted on CT scan- numerous - noted with right sided hydronephrosis- with possible UPJ obstruction - Urology consulted. Do not recommend any acute intervention, manage chronic hydro as outpatient, continue antibiotics, maintain Valerio catheter -We will need follow-up in urology office (11) Abnormal CT scan: Plan: Mild non-specific infiltration around pancreatic tail - lipase pending - no abdominal pain or other symptoms consistent with acute pancreatitis - follow clinically (12) Infection with Pseudomonas aeruginosa resistant to multiple drugs: Plan: - See above Plan: Disposition: Bed hold at [facility]. Anticipate discharge tomorrow if IV antibiotics can be maintained. Admission and Anticipated Discharge Date Admission Date: July 31, 2021 Subjective Patient has no new symptoms. Review of Systems Review of Systems: All systems reviewed & are unremarkable except as noted in HPI & below Physical Exam Physical Exam: GENERAL : No acute distress. Pleasant EYES: No icterus, gaze conjugate NOSE: No evidence of epistaxis MOUTH: No lesions or candidiasis NECK: Supple LUNGS: CTA B/L, no wheezes, rales or rhonchi. Good inspirational effort HEART: Regular, rate controlled ABDOMEN: Soft, NT, ND, BS Present EXTREMITIES: No LE edema, pedal pulses intact and equal bilaterally BACK: Wound VAC in place and draining appropriately NEURO: A&OX3 Results & Data Results & Data ([facility]) Vital Signs (Past 12 Hours) Vital Signs Temp Pulse Resp BP Pulse Ox 08/13/21 19:35 74 16 94 08/13/21 15:48 36.6 C 74 14 116/70 95 PG Care Time/CCT Total # of Minutes Spent Total Time Spent with Patient: Total time spent is greater than 50% in coordination of care (as documented) at patient's floor/unit and/or counseling patient: Coding Level of Care Code 99710 Subseq Hosp Care Lvl 3 Diagnoses Abscess L02.91 Acute hypoxemic respiratory failure J96.01 Sepsis A41.9 HLD (hyperlipidemia) E78.5 Seizure R56.9 Obstructive lung disease J44.9 HTN (hypertension) I10 Diabetes E11.9 Dementia F03.90 Renal stones N20.[address] scan R93.89 Infection with Pseudomonas aeruginosa resistant to multiple drugs A49.8; Z16.24 Time Spent (min) 35
[2021-08-13] MEDS: INSULIN GLARGINE SOLOSTAR 100 UNITS/ML 3 ML PEN SQ SCH (22:09)
[2021-08-14] MEDS: Albuterol HFA 8 GM Inhaler (Combivent Respimat P&T Subs) INH SCH ×4 (08:13→20:06)
[2021-08-14] MEDS: Ipratropium HFA Inhaler (Combivent Respimat P&T Subs) INH SCH ×4 (08:13→20:06)
[2021-08-14] MEDS: METOPROLOL TARTRATE 25 MG TAB PO SCH ×2 (09:05→20:51)
[2021-08-14] MEDS: SERTRALINE HCL 100 MG TABLET PO SCH (09:05)
[2021-08-14] MEDS: DONEPEZIL HCL 5 MG TAB PO SCH (09:05)
[2021-08-14] MEDS: FUROSEMIDE 20 MG TAB PO SCH (09:05)
[2021-08-14] MEDS: ACETAMINOPHEN 325 MG TAB PO PRN (09:14)
[2021-08-14] MEDS: INSULIN ASPART 100 UNITS/ML 3 ML PEN SC SCH ×4 (09:17→21:20)
[2021-08-14] MEDS: HEPARIN SOD 5,000 UNIT/0.5 ML VIAL SQ SCH ×2 (09:26→20:50)
--- NOTE | 2021-08-14 20:10 | Hospitalist Progress Note ---
Date of Service August 14, 2021 Assessment & Plan (1) Abscess: Plan: Attending: Dr. Shaheed Banuelos: Greatly improved following revision of wound and switch to Avycaz for MDR pseudomonas. Anaerobic GPC also grown. ultrasound guided IV placed. Patient cleared for outpatient follow-up and wound care follow-up per surgery. Bed hold, diuresing CHF anticipate discharge at return to baseline/stable oxygen levels Right low back abscess 2/2 polymicrobial infection, including Pseudomonas Drained and irrigated 07/31 by surgical team. Debrided 08/03 as below. Leukocytosis normalized 08/02 Hemoglobin stable Wound culture positive for MDR Pseudomonas. Prior antibiotics ineffective due to resistance. Abx switched to Avycaz with FLagyl for anerobe coverage on 08/05/2021 Continue Avycaz/Flagyl. Anticipate 14-day treatment (complete on 08/19/2021) with reevaluation of wound by surgery to determine end of treatment course. -Dressings per wound care. Wound VAC in place. 3 x 7 cm abscess with purulent drainage and necrotic overlying skin. Successfully debrided back to healthy tissue 08/03. - Contact for MDR Pseudomonas Clinical course improved Due to sahu of antibiotics, patient will need to stay in the hospital until antibiotic course has been completed. Multiple encounter today. Patient lost IV access on 08/13, initially was refusing IV access. But later was amicable to trying again. Patient received Ultrasound guided IV access on 08/13. Patient will complete course on 08/19/2021 (2) Acute hypoxemic respiratory failure: Plan: Acute on chronic CHF 08/08 CXR:Cardiomegaly with pulmonary vascular congestion. Small pleural effusions with mild bibasilar opacities favoring atelectasis. diuresis with Lasix IV, good output, creatinine stable Continue incentive spirometry - Hypoventiliation when pt not wearing CPAP/BiPAP -Continue CPAP/BiPAP nightly and as needed -Encourage out of bed to chair (3) Sepsis: Plan: SIRS 2, Qsofa-2 On admission, resolved Leukocytosis normalized, lactate negative, pro-John negative Fluids discontinued Source control as above Antibiotics as above (4) HLD (hyperlipidemia): Plan: Atorvastatin 40mg daily (5) Seizure: Plan: Continue with Depakote (6) Obstructive lung disease: Plan: Past smoker - quit in 2011 per - Continue albuterol - Continue Theophylline -Theophylline serum level normal at 10 mcg/mL - Abx as noted (7) HTN (hypertension): Plan: Continue metoprolol as long as remains normotensive (8) Diabetes: Plan: -Continue Lantus -Continue NovoLog sliding scale insulin (9) Dementia: Plan: Cotninue with aricept (10) Renal stones: Plan: Oxalate stone in urine- noted on CT scan- numerous - noted with right sided hydronephrosis- with possible UPJ obstruction - Urology consulted. Do not recommend any acute intervention, manage chronic hydro as outpatient, continue antibiotics, maintain Valerio catheter -We will need follow-up in urology office (11) Abnormal CT scan: Plan: Mild non-specific infiltration around pancreatic tail - lipase pending - no abdominal pain or other symptoms consistent with acute pancreatitis - follow clinically (12) Infection with Pseudomonas aeruginosa resistant to multiple drugs: Plan: - See above Plan: Disposition: Bed hold at [facility]. Admission and Anticipated Discharge Date Admission Date: July 31, 2021 Subjective 71 yo male is resting. Patient has no new symptoms. Updated his . Review of Systems Review of Systems: All systems reviewed & are unremarkable except as noted in HPI & below Physical Exam Physical Exam: GENERAL : No acute distress. Pleasant EYES: No icterus, gaze conjugate NOSE: No evidence of epistaxis MOUTH: No lesions or candidiasis NECK: Supple LUNGS: CTA B/L, no wheezes, rales or rhonchi. Good inspirational effort HEART: Regular, rate controlled ABDOMEN: Soft, NT, ND, BS Present EXTREMITIES: No LE edema, pedal pulses intact and equal bilaterally BACK: Wound VAC in place and draining appropriately NEURO: A&OX3 Results & Data Results & Data ([facility]) Vital Signs (Past 12 Hours) Vital Signs Temp Pulse Resp BP BP Pulse Ox 08/14/21 15:27 36.5 C 63 16 114/69 96 08/14/21 08:33 36.5 C 61 18 120/70 98 PG Care Time/CCT Total # of Minutes Spent Total Time Spent with Patient: Total time spent is greater than 50% in coordination of care (as documented) at patient's floor/unit and/or counseling patient: Coding Level of Care Code 01928 Subseq Hosp Care Lvl 2 Diagnoses Abscess L02.91 Acute hypoxemic respiratory failure J96.01 Sepsis A41.9 HLD (hyperlipidemia) E78.5 Seizure R56.9 Obstructive lung disease J44.9 HTN (hypertension) I10 Diabetes E11.9 Dementia F03.90 Renal stones N20.[address] scan R93.89 Infection with Pseudomonas aeruginosa resistant to multiple drugs A49.8; Z16.24 Time Spent (min) 25
[2021-08-14] MEDS: TERAZOSIN HCL 1 MG CAP PO SCH (20:50)
[2021-08-14] MEDS: ATORVASTATIN 40 MG TAB PO SCH (20:51)
[2021-08-14] MEDS: QUEtiapine FUMARATE 25 MG TABLET PO SCH (20:51)
[2021-08-14] MEDS: INSULIN GLARGINE SOLOSTAR 100 UNITS/ML 3 ML PEN SQ SCH (21:21)
[2021-08-15] MEDS: Albuterol HFA 8 GM Inhaler (Combivent Respimat P&T Subs) INH SCH ×4 (07:23→18:50)
[2021-08-15] MEDS: Ipratropium HFA Inhaler (Combivent Respimat P&T Subs) INH SCH ×4 (07:23→18:50)
[2021-08-15] MEDS: DONEPEZIL HCL 5 MG TAB PO SCH (08:34)
[2021-08-15] MEDS: FUROSEMIDE 20 MG TAB PO SCH (08:34)
[2021-08-15] MEDS: SERTRALINE HCL 100 MG TABLET PO SCH (08:34)
[2021-08-15] MEDS: METOPROLOL TARTRATE 25 MG TAB PO SCH ×2 (08:34→21:23)
[2021-08-15 08:39] LABS: Hematocrit (blood only) 34.2 % (42-52); Hemoglobin 9.6 g/dL (14.0-18.0); Mean Corpuscular Hemoglobin 26.2 pg (25-34); Mean Corpuscular Hgb Conc 28.1 g/dL (32-36); Mean Corpuscular Volume 93.2 fL (80-100); Mean Platelet Volume 10.6 fL (7.4-10.4); Platelet Count 287 K/uL (130-400); RDW Coefficient of Variation 19.1 % (11.5-14.5); RDW Standard Deviation 64.9 fL (36.4-46.3); Red Blood Count 3.67 M/uL (4.7-6.1); White Blood Count 6.54 K/uL (4.8-10.8)
[2021-08-15 09:03] LABS: BUN Creatinine Ratio 34.6 (10-20); Calcium 9.3 mg/dl (8.5-10.1); Est GFR (African American) 122.3 ml/min; Est GFR (Non-African American) 105.5 ml/min; Potassium 4.4 mmol/L (3.5-5.1)
[2021-08-15] MEDS: INSULIN ASPART 100 UNITS/ML 3 ML PEN SC SCH ×4 (09:04→21:26)
[2021-08-15] MEDS: HEPARIN SOD 5,000 UNIT/0.5 ML VIAL SQ SCH ×3 (09:05→21:24)
--- NOTE | 2021-08-15 17:26 | Hospitalist Progress Note ---
Date of Service August 15, 2021 Assessment & Plan (1) Abscess: Plan: Right low back s/p I&D on 07/31 with subsequent sugical debridement on 08/03 -Culture data positive for multidrug-resistant Pseudomonas and anaerobe Did have leukocytosis of 18.8 upon presentation which has since normalized (on 08/02) Continue Avycaz/Flagyl. Anticipate 14-day treatment (complete on 08/19/2021) with reevaluation of wound by surgery to determine end of treatment course. -Dressings per wound care. Wound VAC in place with further recommendations per general surgery -Due to sahu of antibiotics, patient will need to stay in the hospital until antibiotic course has been completed. (2) Acute hypoxemic respiratory failure: Plan: Acute on chronic CHF 08/08 CXR:Cardiomegaly with pulmonary vascular congestion. Small pleural effusions with mild bibasilar opacities favoring atelectasis. diuresis with Lasix IV, good output, creatinine stable Continue incentive spirometry - Hypoventiliation when pt not wearing CPAP/BiPAP -Continue CPAP/BiPAP nightly -Encourage out of bed to chair -Suspect patient also has a component of obesity hypoventilation syndrome. Recent acute exacerbation of COPD with pneumonia approximately 2 months prior to this hospitalization. Lengthy discussion with patient regarding importance of compliance with CPAP -Nursing encouraged to down titrate supplemental oxygen to maintain a pulse ox of 90 to 92% (currently 98% on 2 L which I discussed this can cause acute) (3) Sepsis: Plan: SIRS 2, Qsofa-2 On admission, resolved Leukocytosis normalized, lactate negative, pro-John negative Fluids discontinued Source control as above Antibiotics as above (4) HLD (hyperlipidemia): Plan: Atorvastatin 40mg daily (5) Seizure: Plan: Continue with Depakote (6) Obstructive lung disease: Plan: Past smoker - quit in 2011 per - Continue albuterol - Continue Theophylline -Theophylline serum level normal at 10 mcg/mL - Abx as noted (7) HTN (hypertension): Plan: Continue metoprolol as long as remains normotensive (8) Diabetes: Plan: -Continue Lantus -Continue NovoLog sliding scale insulin (9) Dementia: Plan: Cotninue with aricept (10) Renal stones: Plan: Oxalate stone in urine- noted on CT scan- numerous - noted with right sided hydronephrosis- with possible UPJ obstruction - Urology consulted. Do not recommend any acute intervention, manage chronic hydro as outpatient, continue antibiotics, maintain Valerio catheter -will need follow-up in urology office (11) Abnormal CT scan: Plan: Mild non-specific infiltration around pancreatic tail - lipase normal - no abdominal pain or other symptoms consistent with acute pancreatitis - follow clinically (12) Infection with Pseudomonas aeruginosa resistant to multiple drugs: Plan: - See above Plan: Disposition: Bed hold at [facility]. Plan is for discharge after completion of IV antibiotic therapy (08/19) Admission and Anticipated Discharge Date Admission Date: July 31, 2021 Subjective Patient seen on daily rounds today. He is a 71-year-old white male who resides at [facility] (given recent acute exacerbation of COPD and pneumoniaapproximately 2 months ago). He was hospitalized on 07/31 due to a "cyst on his back" that was draining malodorous purulent drainage. Had been on Bactrim prior to this hospitalization without improvement. Ended up having an I&D on 08/[address] Fung and his culture data came back positive for multidrug-resistant Pseudomonas with an anaerobe. He is currently on Avycaz and Flagyl to complete full course on 08/19. Wound VAC in place. P monty is for discharge back to [facility] after completion of IV antibiotic therapy (as they do not have this on formulary and are unable to get it). Patient vocalizes no complaints or concerns. Denies fevers, chills, chest pain, shortness of breath, abdominal pain, nausea or vomiting. Moving his bowel bladder without difficulty. Results & Data Results & Data ([facility]) Vital Signs (Past 12 Hours) Vital Signs Temp Pulse Pulse Resp BP Pulse Ox 08/15/21 16:06 36.9 C 74 18 103/62 96 08/15/21 14:54 74 18 95 08/15/21 10:18 68 16 95 08/15/21 08:37 36.8 C 58 L 18 116/60 94 08/15/21 07:37 90 20 95 Laboratory Results 08/15/21 08:18 08/15/21 08:18 PG Care Time/CCT Total # of Minutes Spent Total Time Spent with Patient: Total time spent is greater than 50% in coordination of care (as documented) at patient's floor/unit and/or counseling patient: Coding [place] [address] Subseq Hosp Care Lvl 2 Patient Type Established History Expanded Problem Focused Exam Expanded Problem Focused Medical Decision Making Moderate Complexity Diagnoses Abscess L02.91 Acute hypoxemic respiratory failure J96.01 Sepsis A41.9 HLD (hyperlipidemia) E78.5 Seizure R56.9 Obstructive lung disease J44.9 HTN (hypertension) I10 Diabetes E11.9 Dementia F03.90 Renal stones N20.[address] scan R93.89 Infection with Pseudomonas aeruginosa resistant to multiple drugs A49.8; Z16.24
[2021-08-15] MEDS: ACETAMINOPHEN 325 MG TAB PO PRN (19:24)
[2021-08-15] MEDS: TERAZOSIN HCL 1 MG CAP PO SCH (21:23)
[2021-08-15] MEDS: INSULIN GLARGINE SOLOSTAR 100 UNITS/ML 3 ML PEN SQ SCH (21:24)
[2021-08-15] MEDS: ATORVASTATIN 40 MG TAB PO SCH (21:24)
[2021-08-15] MEDS: QUEtiapine FUMARATE 25 MG TABLET PO SCH (21:24)
[2021-08-16] MEDS: Ipratropium HFA Inhaler (Combivent Respimat P&T Subs) INH SCH ×4 (07:41→19:13)
[2021-08-16] MEDS: Albuterol HFA 8 GM Inhaler (Combivent Respimat P&T Subs) INH SCH ×5 (07:42→19:14)
[2021-08-16] MEDS: FUROSEMIDE 20 MG TAB PO SCH (08:37)
[2021-08-16] MEDS: DONEPEZIL HCL 5 MG TAB PO SCH (08:37)
[2021-08-16] MEDS: METOPROLOL TARTRATE 25 MG TAB PO SCH ×2 (08:39→20:11)
[2021-08-16] MEDS: SERTRALINE HCL 100 MG TABLET PO SCH (08:39)
[2021-08-16] MEDS: HEPARIN SOD 5,000 UNIT/0.5 ML VIAL SQ SCH ×2 (08:40→20:05)
[2021-08-16] MEDS: INSULIN ASPART 100 UNITS/ML 3 ML PEN SC SCH ×4 (08:43→20:43)
[2021-08-16 10:10] LABS: BUN Creatinine Ratio 38.1 (10-20); Calcium 9.4 mg/dl (8.5-10.1); Creatinine Clr Calc Pharmacy 172.8 ml/min; Est GFR (African American) 119.7 ml/min; Est GFR (Non-African American) 103.3 ml/min; Potassium 4.1 mmol/L (3.5-5.1)
[2021-08-16 10:12] LABS: C Reactive Protein 0.55 mg/dl (0-0.29)
[2021-08-16 10:18] LABS: Hematocrit (blood only) 35.6 % (42-52); Hemoglobin 10.2 g/dL (14.0-18.0); Mean Corpuscular Hemoglobin 26.3 pg (25-34); Mean Corpuscular Hgb Conc 28.7 g/dL (32-36); Mean Corpuscular Volume 91.8 fL (80-100); Mean Platelet Volume 11.4 fL (7.4-10.4); Platelet Count 291 K/uL (130-400); RDW Standard Deviation 63.5 fL (36.4-46.3); Red Blood Count 3.88 M/uL (4.7-6.1); White Blood Count 6.72 K/uL (4.8-10.8)
[2021-08-16 10:24] LABS: Basophils # (auto) 0.02 K/uL (0-0.2); Basophils % (auto) 0.3 %; Immature Granulocytes # (auto) 0.03 K/uL (0.00-0.02); Immature Granulocytes % (auto) 0.4 %; Lymphocytes # (auto) 1.35 K/uL (1.2-3.4); Lymphocytes % (auto) 20.1 %; Monocytes # (auto) 0.42 K/uL (0.11-0.59); Monocytes % (auto) 6.3 %; Neutrophils % (auto) 69.9 %
--- NOTE | 2021-08-16 16:20 | Hospitalist Progress Note ---
Date of Service August 16, 2021 Assessment & Plan (1) Abscess: Plan: Right low back s/p I&D on 07/31 with subsequent sugical debridement on 08/03 -Culture data positive for multidrug-resistant Pseudomonas and anaerobe Did have leukocytosis of 18.8 upon presentation which has since normalized (on 08/02) Continue Avycaz/Flagyl. Anticipate 14-day treatment (complete on 08/19/2021) with reevaluation of wound by surgery to determine end of treatment course. -Dressings per wound care. Wound VAC in place with further recommendations per general surgery -Due to sahu of antibiotics, patient will need to stay in the hospital until antibiotic course has been completed. (2) Combative behavior: Plan: -Patient has not demonstrated any aggressive or combative behavior with me but has with multiple staff members -Security had to be called multiple times on patient -He is not confused but simply gets easily agitated resulting in him throwing things at staff and yelling obscenities -Dr. Hsieh has been in to talk with the patient to reiterate and reassure him that staff is doing the best that they can and that he needs to cooperate to complete his course of antibiotic therapy. Once he completes on 08/09 he may be discharged back to [facility]. (3) Acute hypoxemic respiratory failure: Plan: Patient was hydrated with IV fluids on account of his sepsis. Subsequently, had flash pulmonary edema/respiratory failure that improved with BiPAPsee below - acute on chronic CHF in addition to acute hypercapnic respiratory failure (MIXED PICTURE) 08/08 CXR:Cardiomegaly with pulmonary vascular congestion. Small pleural effusions with mild bibasilar opacities favoring atelectasis. diuresis with Lasix IV, good output, creatinine stable -Transitioned back to p.o. Lasix. Beta-blockade on board. -noted to NOT HAVE AN ECHO. Will order if patient will be complicant. Continue incentive spirometry -Upon presentation, patient not only had acute on compensated CHF but also acute hypercapnic respiratory failure (pH 7.22/PCO2 84) -cleared with BiPAP use -Upon further questioning, patient recently had an exacerbation of his COPD and has been on supplemental oxygen since -I suspect he has a component of obesity hypoventilation syndrome and/or AMBERLY -Utilized BiPAP when sleeping if available (lack of BiPAP given Covid pandemic and need for other patients) -Encouraged staff to down titrate supplemental oxygen to maintain a pulse ox of 90 to 92% (avoid a pulse ox greater than 94% given risk for hypercapnia) -Encourage out of bed to chair -We will need sleep study as an outpatient (4) Sepsis: Plan: SIRS 2, Qsofa-2 On admission, resolved Leukocytosis normalized, lactate negative, pro-John negative Fluids discontinued Source control as above Antibiotics as above (5) HLD (hyperlipidemia): Plan: Atorvastatin 40mg daily (6) Seizure: Plan: Continue with Depakote (7) Obstructive lung disease: Plan: Past smoker - quit in 2011 per - Continue albuterol - Continue Theophylline -Theophylline serum level normal at 10 mcg/mL - Abx as noted (8) HTN (hypertension): Plan: Continue metoprolol as long as remains normotensive (9) Diabetes: Plan: -Continue Lantus -Continue NovoLog sliding scale insulin (10) Dementia: Plan: Cotninue with aricept (11) Renal stones: Plan: Oxalate stone in urine- noted on CT scan- numerous - noted with right sided hydronephrosis- with possible UPJ obstruction - Urology consulted. Do not recommend any acute intervention, manage chronic hydro as outpatient, continue antibiotics, maintain Valerio catheter -will need follow-up in urology office (12) Abnormal CT scan: Plan: Mild non-specific infiltration around pancreatic tail - lipase normal - no abdominal pain or other symptoms consistent with acute pancreatitis - follow clinically (13) Infection with Pseudomonas aeruginosa resistant to multiple drugs: Plan: - See above Plan: Disposition: Bed hold at [facility]. Plan is for discharge after completion of IV antibiotic therapy (08/19) Admission and Anticipated Discharge Date Admission Date: July 31, 2021 Subjective Patient seen on daily rounds today. He vocalizes no complaints or concerns. Nursing is having a difficult time with the patient as he is becoming easily agitated and combative. He has been using profanity and throwing things at nursing staff when they do not "empty his urinal fast enough". Security had to be called today. Dr. Hsieh did talk with the patient to reiterate that he needs to be patient with the staff as they are all doing the best that they can. Patient has been medically stable and ready for discharge; however, unfortunately the nursing facility (with where he resides) cannot get the current antibiotic that he is on due to financial costs/burdens. To complete antibiotics on 08/19. Patient vocalizes no complaints or concerns when seen by myself. Denied fevers, chills, chest pain, shortness of breath, abdominal pain, nausea or vomiting. It was noted that patient is to be on BiPAP when sleeping given AMBERLY and recent acute on chronic respiratory failure. Unfortunately, these are limited due to being used for Covid patients. Patient stable currently on supplemental oxygen. Review of Systems Review of Systems: All systems reviewed and are unremarkable except as noted in HPI and below Denies fevers, chills, headache, nasal congestion, sore throat, cough, chest pain, shortness of breath, palpitations, orthopnea, PND, abdominal pain, nausea, vomiting, diarrhea, constipation, dysuria, hematuria, frequency, back pain, joint pain or swelling, easy bruising or bleeding, skin lesions or rashes. Physical Exam Physical Exam: General: Resting comfortably in his hospital bed. Very flat affect. Does not open his eyes when being spoken to. NAD. HEENT: Head is AT/NC buccal mucosa is moist and pink Neck: No JVD. Negative hepatojugular reflex Cardiac: RRR but distant Lungs: CTA but diminished Abdomen: Normoactive X4. Soft and nontender in all quadrants. Extremities: + Adiposity without true pitting edema Neuro: A&O X4 cranial nerves II through XII are grossly intact no focal neuro deficits Skin: Actual wound not examined. Wound pictures examined (as wound care nurses following closely). Wound VAC in place Psych: Flat affect with limited cooperation Results & Data Results & Data ([facility]) Vital Signs (Past 12 Hours) Vital Signs Temp Pulse Resp BP Pulse Ox 08/16/21 11:18 79 18 96 08/16/21 09:02 37.0 C 77 18 110/70 92 08/16/21 07:42 78 17 93 Laboratory Results 08/16/21 09:25 08/16/21 09:25 PG Care Time/CCT Total # of Minutes Spent Total Time Spent with Patient: Total time spent is greater than 50% in coordination of care (as documented) at patient's floor/unit and/or counseling patient: [place] [address] Subseq Hosp Care Lvl 2 Patient Type Established History Expanded Problem Focused Exam Expanded Problem Focused Diagnoses Abscess L02.91 Acute hypoxemic respiratory failure J96.01 Sepsis A41.9 HLD (hyperlipidemia) E78.5 Seizure R56.9 Obstructive lung disease J44.9 HTN (hypertension) I10 Diabetes E11.9 Dementia F03.90 Renal stones N20.[address] scan R93.89 Infection with Pseudomonas aeruginosa resistant to multiple drugs A49.8; Z16.24 Combative behavior R46.89
[2021-08-16] MEDS: ACETAMINOPHEN 325 MG TAB PO PRN (20:03)
[2021-08-16] MEDS: ATORVASTATIN 40 MG TAB PO SCH (20:05)
[2021-08-16] MEDS: QUEtiapine FUMARATE 25 MG TABLET PO SCH (20:06)
[2021-08-16] MEDS: TERAZOSIN HCL 1 MG CAP PO SCH (20:06)
[2021-08-16] MEDS: INSULIN GLARGINE SOLOSTAR 100 UNITS/ML 3 ML PEN SQ SCH (20:45)
[2021-08-17] MEDS: Ipratropium HFA Inhaler (Combivent Respimat P&T Subs) INH SCH ×4 (06:33→20:07)
[2021-08-17] MEDS: Albuterol HFA 8 GM Inhaler (Combivent Respimat P&T Subs) INH SCH ×4 (06:33→20:07)
[2021-08-17] MEDS: FUROSEMIDE 20 MG TAB PO SCH (08:33)
[2021-08-17] MEDS: METOPROLOL TARTRATE 25 MG TAB PO SCH ×2 (08:33→21:41)
[2021-08-17] MEDS: DONEPEZIL HCL 5 MG TAB PO SCH (08:33)
[2021-08-17] MEDS: SERTRALINE HCL 100 MG TABLET PO SCH (08:33)
[2021-08-17] MEDS: HEPARIN SOD 5,000 UNIT/0.5 ML VIAL SQ SCH ×2 (08:33→21:42)
[2021-08-17] MEDS: INSULIN ASPART 100 UNITS/ML 3 ML PEN SC SCH ×4 (08:36→21:43)
--- NOTE | 2021-08-17 17:26 | Hospitalist Progress Note ---
Date of Service August 17, 2021 Assessment & Plan (1) Abscess: Plan: Right low back s/p I&D on 07/31 with subsequent sugical debridement on 08/03 -Culture data positive for multidrug-resistant Pseudomonas and anaerobe Did have leukocytosis of 18.8 upon presentation which has since normalized (on 08/02) Continue Avycaz/Flagyl. Anticipate 14-day treatment (complete on 08/19/2021) with reevaluation of wound by surgery to determine end of treatment course. -Dressings per wound care. Wound VAC in place with further recommendations per general surgery -Due to sahu of antibiotics, patient will need to stay in the hospital until antibiotic course has been completed. -We will need continued wound therapy upon discharge (2) Combative behavior: Plan: -Patient has not demonstrated any aggressive or combative behavior with me but has with multiple staff members -Security had to be called multiple times on patient -He is not confused but simply gets easily agitated resulting in him throwing things at staff and yelling obscenities -Dr. Hsieh has been in to talk with the patient to reiterate and reassure him that staff is doing the best that they can and that he needs to cooperate to complete his course of antibiotic therapy. Once he completes on 08/19 he may be discharged back to [facility] on 08/20 (3) Acute hypoxemic respiratory failure: Plan: Patient was hydrated with IV fluids on account of his sepsis. Subsequently, had flash pulmonary edema/respiratory failure that improved with BiPAPsee below - acute on chronic CHF in addition to acute hypercapnic respiratory failure (MIXED PICTURE) 08/08 CXR:Cardiomegaly with pulmonary vascular congestion. Small pleural effusions with mild bibasilar opacities favoring atelectasis. diuresis with Lasix IV, good output, creatinine stable -Transitioned back to p.o. Lasix. Beta-blockade on board. -noted to NOT HAVE AN ECHO. Patient declines this Continue incentive spirometry -Upon presentation, patient not only had acute on compensated CHF but also acute hypercapnic respiratory failure (pH 7.22/PCO2 84) -cleared with BiPAP use -Upon further questioning, patient recently had an exacerbation of his COPD and has been on supplemental oxygen since -I suspect he has a component of obesity hypoventilation syndrome and/or AMBERLY -Utilized BiPAP when sleeping if available (lack of BiPAP given Covid pandemic and need for other patients) -Encouraged staff to down titrate supplemental oxygen to maintain a pulse ox of 90 to 92% (avoid a pulse ox greater than 92 given risk for hypercapnia) -Encourage out of bed to chair--> patient refusing -will need sleep study as an outpatient (4) Sepsis: Plan: SIRS 2, Qsofa-2 On admission, resolved Leukocytosis normalized, lactate negative, pro-John negative Fluids discontinued Source control as above Antibiotics as above (5) HLD (hyperlipidemia): Plan: Atorvastatin 40mg daily (6) Seizure: Plan: Continue with Depakote (7) Obstructive lung disease: Plan: Past smoker - quit in 2011 per - Continue albuterol - Continue Theophylline -Theophylline serum level normal at 10 mcg/mL - Abx as noted (8) HTN (hypertension): Plan: Continue metoprolol as long as remains normotensive (9) Diabetes: Plan: -Continue Lantus -Continue NovoLog sliding scale insulin (10) Dementia: Plan: Cotninue with aricept (11) Renal stones: Plan: Oxalate stone in urine- noted on CT scan- numerous - noted with right sided hydronephrosis- with possible UPJ obstruction - Urology consulted. Do not recommend any acute intervention, manage chronic hydro as outpatient, continue antibiotics, maintain Valerio catheter -will need follow-up in urology office (12) Abnormal CT scan: Plan: Mild non-specific infiltration around pancreatic tail - lipase normal - no abdominal pain or other symptoms consistent with acute pancreatitis - follow clinically (13) Infection with Pseudomonas aeruginosa resistant to multiple drugs: Plan: - See above Plan: Disposition: Bed hold at [facility]. Plan is for discharge after completion of IV antibiotic therapy (08/19)--> D/C 08/20 Admission and Anticipated Discharge Date Admission Date: July 31, 2021 Subjective Patient seen on daily rounds today. Vocalizes no significant complaints or concerns. After Dr. Hsieh spoke to patient yesterday, he has been kind and cooperative with nursing staff. He is limited in his cooperation today and reports that he "just wants to be left alone to sleep". Review of Systems Review of Systems: All systems reviewed and are unremarkable except as noted in HPI and below Denies fevers, chills, headache, nasal congestion, sore throat, cough, chest pain, shortness of breath, palpitations, orthopnea, PND, abdominal pain, nausea, vomiting, diarrhea, constipation, dysuria, hematuria, frequency, back pain, joint pain or swelling, easy bruising or bleeding, skin lesions or rashes. Physical Exam Physical Exam: General: Resting comfortably in his hospital bed. Flat affect. Does not open eyes during exam. NAD. HEENT: Head is AT/NC buccal mucosa is moist and pink Neck: No JVD. Negative hepatojugular reflex Cardiac: RRR with faint 1/6 EDGARD Lungs: Breathing is nonlabored. Diminished breath sounds throughout without wheezes, rales or rhonchi Abdomen: Normoactive X4. Soft and nontender in all quadrants. Extremities: No peripheral clubbing cyanosis or edema Neuro: A&O X4 cranial nerves II through XII are grossly intact no focal neuro deficits Skin: Wounds not examined today Psych: Appropriate affect pleasant and cooperative Results & Data Results & Data ([facility]) Vital Signs (Past 12 Hours) Vital Signs Temp Pulse Pulse Resp BP Pulse Ox 08/17/21 15:03 66 18 97 08/17/21 11:00 71 18 99 08/17/21 08:15 36.6 C 68 16 121/72 08/17/21 06:34 64 20 94 Laboratory Results No lab data PG Care Time/CCT Total # of Minutes Spent Total Time Spent with Patient: Total time spent is greater than 50% in coordina tion of care (as documented) at patient's floor/unit and/or counseling patient: C[place] [address] Subseq Hosp Care Lvl 1 Patient Type Established History Problem Focused Exam Problem Focused Medical Decision Making Straight Forward Diagnoses Abscess L02.91 Combative behavior R46.89 Acute hypoxemic respiratory failure J96.01 Sepsis A41.9 HLD (hyperlipidemia) E78.5 Seizure R56.9 Obstructive lung disease J44.9 HTN (hypertension) I10 Diabetes E11.9 Dementia F03.90 Renal stones N20.[address] scan R93.89 Infection with Pseudomonas aeruginosa resistant to multiple drugs A49.8; Z16.24
[2021-08-17] MEDS ORDERED: traMADol HCL 50 MG TABLET PO STA (19:48)
[2021-08-17] MEDS: TERAZOSIN HCL 1 MG CAP PO SCH (21:41)
[2021-08-17] MEDS: ATORVASTATIN 40 MG TAB PO SCH (21:41)
[2021-08-17] MEDS: QUEtiapine FUMARATE 25 MG TABLET PO SCH (21:42)
[2021-08-17] MEDS: INSULIN GLARGINE SOLOSTAR 100 UNITS/ML 3 ML PEN SQ SCH (21:44)
[2021-08-18] MEDS: Albuterol HFA 8 GM Inhaler (Combivent Respimat P&T Subs) INH SCH ×4 (07:58→19:06)
[2021-08-18] MEDS: Ipratropium HFA Inhaler (Combivent Respimat P&T Subs) INH SCH ×4 (07:59→19:06)
[2021-08-18] MEDS: METOPROLOL TARTRATE 25 MG TAB PO SCH ×2 (08:43→21:30)
[2021-08-18] MEDS: SERTRALINE HCL 100 MG TABLET PO SCH (08:47)
[2021-08-18] MEDS: DONEPEZIL HCL 5 MG TAB PO SCH (08:47)
[2021-08-18] MEDS: FUROSEMIDE 20 MG TAB PO SCH (08:47)
[2021-08-18] MEDS: HEPARIN SOD 5,000 UNIT/0.5 ML VIAL SQ SCH ×2 (08:48→21:31)
[2021-08-18] MEDS: INSULIN ASPART 100 UNITS/ML 3 ML PEN SC SCH ×4 (08:50→21:31)
--- NOTE | 2021-08-18 18:33 | Hospitalist Progress Note ---
Date of Service August 18, 2021 Assessment & Plan (1) Abscess: Plan: presented to the hospital with sepsis syndrome (see below). Source identified: abscess on back Right low back s/p I&D on 07/31 with subsequent sugical debridement on 08/03 -Culture data positive for multidrug-resistant Pseudomonas and anaerobe Did have leukocytosis of 18.8 upon presentation which has since normalized (on 08/02) Continue Avycaz/Flagyl. Anticipate 14-day treatment (complete on 08/19/2021) with reevaluation of wound as outpatient -Dressings per wound care. Wound VAC in place with further recommendations per general surgery -Due to sahu of antibiotics, patient will need to stay in the hospital until antibiotic course has been completed. -We will need continued wound therapy upon discharge (2) Combative behavior: Plan: -Patient has not demonstrated any aggressive or combative behavior with me but has with multiple staff members -Security had to be called multiple times on patient -He is not confused but simply gets easily agitated resulting in him throwing things at staff and yelling obscenities -Dr. Hsieh has been in to talk with the patient to reiterate and reassure him that staff is doing the best that they can and that he needs to cooperate to complete his course of antibiotic therapy. Once he completes on 08/19 he may be discharged back to [facility] on 08/20 (3) Acute hypoxemic respiratory failure: Plan: Patient was hydrated with IV fluids on account of his sepsis. Subsequently, had flash pulmonary edema/respiratory failure that improved with BiPAPsee below - acute on chronic CHF in addition to acute hypercapnic respiratory failure (MIXED PICTURE) 08/08 CXR:Cardiomegaly with pulmonary vascular congestion. Small pleural effusions with mild bibasilar opacities favoring atelectasis. diuresis with Lasix IV, good output, creatinine stable -Transitioned back to p.o. Lasix. Beta-blockade on board. -noted to NOT HAVE AN ECHO. Patient declines this Continue incentive spirometry -Upon presentation, patient not only had acute on compensated CHF but also acute hypercapnic respiratory failure (pH 7.22/PCO2 84) -cleared with BiPAP use -Upon further questioning, patient recently had an exacerbation of his COPD and has been on supplemental oxygen since -I suspect he has a component of obesity hypoventilation syndrome and/or AMBERLY -Utilize BiPAP when sleeping if available (lack of BiPAP given Covid pandemic and need for other patients) -Encouraged staff to down titrate supplemental oxygen to maintain a pulse ox of 90 to 92% (avoid a pulse ox greater than 92 given risk for hypercapnia) -Encourage out of bed to chair--> patient refusing -will need sleep study as an outpatient (4) Sepsis: Plan: SIRS 2, Qsofa-2 On admission, Leukocytosis of 18.81 Leukocytosis normalized, lactate negative, pro-John negative Fluids discontinued Source control as above Antibiotics as above (5) HLD (hyperlipidemia): Plan: Atorvastatin 40mg daily (6) Seizure: Plan: Continue with Depakote (7) Obstructive lung disease: Plan: Past smoker - quit in 2011 per - Continue albuterol - Continue Theophylline -Theophylline serum level normal at 10 mcg/mL - Abx as noted (8) HTN (hypertension): Plan: Continue metoprolol as long as remains normotensive (9) Diabetes: Plan: -Continue Lantus -Continue NovoLog sliding scale insulin (10) Dementia: Plan: Cotninue with aricept (11) Renal stones: Plan: Oxalate stone in urine- noted on CT scan- numerous - noted with right sided hydronephrosis- with possible UPJ obstruction - Urology consulted. Do not recommend any acute intervention, manage chronic hydro as outpatient, continue antibiotics, maintain Valerio catheter -will need follow-up in urology office (12) Abnormal CT scan: Plan: Mild non-specific infiltration around pancreatic tail - lipase normal - no abdominal pain or other symptoms consistent with acute pancreatitis - follow clinically (13) Infection with Pseudomonas aeruginosa resistant to multiple drugs: Plan: - See above Plan: Disposition: Bed hold at [facility]. Plan is for discharge after completion of IV antibiotic therapy (08/19)--> D/C 08/20 Admission and Anticipated Discharge Date Admission Date: July 31, 2021 Subjective Patient seen on daily rounds today while eating breakfast. Vocalizes no overt complaints or concerns. Denies fevers, chills, chest pain, shortness of breath, abdominal pain, nausea or vomiting. Seems to be cooperative for the most part with nursing Review of Systems Review of Systems: All systems reviewed and are unremarkable except as noted in HPI and below Denies fevers, chills, headache, nasal congestion, sore throat, cough, chest pain, shortness of breath, palpitations, orthopnea, PND, abdominal pain, nausea, vomiting, diarrhea, constipation, dysuria, hematuria, frequency, back pain, joint pain or swelling, easy bruising or bleeding, skin lesions or rashes. Physical Exam Physical Exam: General: Resting comfortably in his hospital bed. Flat affect. Does actually open his eyes and make contact with me today. NAD. HEENT: Head is AT/NC buccal mucosa is moist and pink Neck: No JVD. Negative hepatojugular reflex Cardiac: RRR with faint 1/6 EDGARD Lungs: Breathing is nonlabored. Diminished breath sounds throughout without wheezes, rales or rhonchi Abdomen: Normoactive X4. Soft and nontender in all quadrants. Extremities: No peripheral clubbing cyanosis or edema Neuro: A&O X4 cranial nerves II through XII are grossly intact no focal neuro deficits Skin: Wounds not examined today Psych: Appropriate affect pleasant and cooperative Results & Data Results & Data ([facility]) Vital Signs (Past 12 Hours) Vital Signs Temp Pulse Resp BP Pulse Ox 08/18/21 15:50 71 H 87 L 08/18/21 11:47 71 17 92 08/18/21 08:42 90 08/18/21 08:33 81 L 08/18/21 08:28 36.6 C 62 16 101/66 93 08/18/21 07:59 74 17 96 Laboratory Results No lab data today PG Care Time/CCT Total # of Minutes Spent Total Time Spent with Patient: Total time spent is greater than 50% in coordination of care (as documented) at patient's floor/unit and/or counseling patient: Coding [place] [address] Subseq Hosp Care Lvl 1 Patient Type Established History Problem Focused Exam Problem Focused Medical Decision Making Straight Forward Diagnoses Abscess L02.91 Combative behavior R46.89 Acute hypoxemic respiratory failure J96.01 Sepsis A41.9 HLD (hyperlipidemia) E78.5 Seizure R56.9 Obstructive lung disease J44.9 HTN (hypertension) I10 Diabetes E11.9 Dementia F03.90 Renal stones N20.[address] scan R93.89 Infection with Pseudomonas aeruginosa resistant to multiple drugs A49.8; Z16.24
[2021-08-18] MEDS: TERAZOSIN HCL 1 MG CAP PO SCH (21:30)
[2021-08-18] MEDS: QUEtiapine FUMARATE 25 MG TABLET PO SCH (21:30)
[2021-08-18] MEDS: INSULIN GLARGINE SOLOSTAR 100 UNITS/ML 3 ML PEN SQ SCH (21:31)
[2021-08-18] MEDS: ATORVASTATIN 40 MG TAB PO SCH (21:31)
[2021-08-19] MEDS: Albuterol HFA 8 GM Inhaler (Combivent Respimat P&T Subs) INH SCH ×3 (07:40→15:24)
[2021-08-19] MEDS: INSULIN ASPART 100 UNITS/ML 3 ML PEN SC SCH ×2 (09:28→12:55)
[2021-08-19] MEDS: METOPROLOL TARTRATE 25 MG TAB PO SCH (09:33)
[2021-08-19] MEDS: SERTRALINE HCL 100 MG TABLET PO SCH (09:33)
[2021-08-19] MEDS: FUROSEMIDE 20 MG TAB PO SCH (09:35)
[2021-08-19] MEDS: DONEPEZIL HCL 5 MG TAB PO SCH (09:35)
[2021-08-19] MEDS: Ipratropium HFA Inhaler (Combivent Respimat P&T Subs) INH SCH ×3 (09:37→15:24)
[2021-08-19] MEDS: HEPARIN SOD 5,000 UNIT/0.5 ML VIAL SQ SCH (09:37)
--- NOTE | 2021-08-19 17:41 | Discharge Summary ---
Date of Service August 19, 2021 Admission HPI Per Admitting Provider 61 YOM with past medical history of: CHF, COPD, past smoker, Encephalopathy, DM II (on insulin), depression. Patient is a resident at [facility] for the past ~2 months following a COPD exacerbation and pneumonia where he is going through rehab. The patient was brought in today for originally having a "a cyst" on his back for past couple days that burst open on per the . This then became more painful and she started to notice it becoming more foul smelling yesterday. It appears that he may have been on Bactrim for that time frame. In the EMD the patient has been tachycardic >120 with his BP 120-160. He is noted to have elevated WBC count and normal lactate and PCT. The patient had CT scan done of his abdomen and pelvis that reveals a 10x3x3 abscess collection just deep too the dermal surface, this is notable for large gas and fluid in the collection. There is no gas in the surrounding tissues and surrounding cellulitis. The patient had blood cultures and UA performed. The patient was started on Vancomycin in the EMD. Will also add Rocephin 2GM IV daily, first dose. General Surgery was notified by hospitalist service, the abscess was drained at the bedside (see Dr. Mcknight's procedure note), large amount of brown purulence drained, wound culture obtained, irrigated and packed. Patient will be admitted to the floor for continued sepsis care, and follow organ perfusion. Patient has had his COVID vaccine and his COVID test is: NEGATIVE Principal Diagnosis 1. Sepsis Syndrome (d/t abscess) 2. Abscess of the back (s/p I&D, now with wound vac) 3. Acute on chronic Respiratory failure (mixed picture)--> flash pulmonary edema with hypoxemia and acute hypercapnia Discharge Exam General: Resting comfortably in his hospital bed. Flat affect. Does actually open his eyes and make contact with me today. NAD. HEENT: Head is AT/NC buccal mucosa is moist and pink Neck: No JVD. Negative hepatojugular reflex Cardiac: RRR with faint 1/6 EDGARD Lungs: Breathing is nonlabored. Diminished breath sounds throughout without wheezes, rales or rhonchi Abdomen: Normoactive X4. Soft and nontender in all quadrants. Extremities: No peripheral clubbing cyanosis or edema Neuro: A&O X4 cranial nerves II through XII are grossly intact no focal neuro deficits Skin: Wounds not examined today Psych: Appropriate affect pleasant and cooperative Discharge Data Allergies Allergy/AdvReac Type Severity Reaction Status Date / Time ketorolac [From Toradol] Allergy Unknown Unknown Verified 07/31/21 17:53 Consultations 07/31/21 20:05 ED Decision to Admit Stat 08/01/21 00:23 Consult General Surgery Routine Assessment & Plan (1) Abscess: Plan: abscess repacked wet to dry. minimal drainage but still significant tenderness. dry eschar surrounding I&D site. may require debridement, most likely in OR. will follow. Admission and Anticipated Discharge Date Assessment & Plan (1) Abscess: Plan: will set up for I&D in the OR. all questions answered, agreeable to proceed. Admission and Anticipated Discharge Date Admission Date: July 31, 2021 Description of Procedure Patient was taken to the operating room, placed supine on the operating table. Timeout was performed, perioperative antibiotics were administered, SCD boots were placed. After adequate anesthesia and allergies was obtained, the patient was placed on his left side and was prepped and draped in the normal sterile fashion. The prior I&D site was explored. There was black eschar with necrosis circumferentially extending for approximately 1 cm in all directions. This was excised with a 15 blade scalpel. The cavity was then explored. There is a significant amount of fibrinopurulent exudate, which was removed. This was quirino issac back to healthy bleeding tissue. Hemostasis was controlled with electrocautery. The wound measured 3 cm x 7 cm outside; there is a 2 cm underlay track inferiorly; it is 3 cm deep. The wound was packed wet-to-dry with Kerlix, and a dressing was applied. He tolerated the procedure without complication, and was transferred in stable condition to the PACU. All instrument, needle, and sponge counts were correct at the end of the case. I attest to the content of the Intraoperative Record and any orders documented therein. Any exceptions are noted below. Consult Urology Routine Assessment & Plan (1) Renal stones: (2) Hydronephrosis of right kidney: 71yo M admitted with a right lower back abscess with an incidental finding on CT of moderate to severe right-sided hydronephrosis without stone or obstructing lesion possibly representing UPJ type obstruction. - Plan of care and imaging reviewed with Dr. Baugh, on-call urologist - CT imaging reviewed - Moderate to severe right-sided hydronephrosis, no stone or obstructing lesion identified representing possible chronic UPJ type obstruction; Bilateral nephrolithiasis also noted - He is afebrile - Labs reviewed, Wbc trending down to 16.96 today, Hgb 9.4, and creatinine 0.67. - Urine and blood culture pending -- Continues on IV Ceftriaxone and Daptomycin - Wilkerson catheter draining clear, yellow urine - Given his stability, no acute intervention required at this time - Hydronephrosis can be managed as outpatient as this is likely chronic in nature - Continue supportive care and antibiotic therapy per primary team, follow cultures - Maintain wilkerson catheter, can consider voiding trial when medically optimized - Will arrange outpatient follow-up with urology service for continued care. - Thank you for allowing us to participate in the acute care of Mr. Harvey. Please reconsult us with additional questions, concerns or changes in patient status. Procedures Performed Operation Date: 08/03/21 08:30 Actual Procedures p Back Abscess Debridement - Jeremy Fung MD Ordered Studies 07/31/21 18:41 CT abd pelvis IV con only Stat IMPRESSION: 1. Streak and motion compromised examination 2. There is an approximately 10 x 3 x 10 cm gas and fluid containing collection just deep to the dermal surface within the subcutaneous soft tissues of the right lower back as detailed above. This is typical for abscess and there is evidence of surrounding cellulitis. 3. There is no soft tissue gas identified outside of the collection. 4. There are small pleural effusions with dependent consolidation. This likely represents atelectasis. Correlate clinically for evidence of superimposed pneumonia. 5. There is moderate to severe right-sided hydronephrosis. No stone or obstructing lesion is identified and this may represent a UPJ type obstruction. Correlate with clinical findings and any prior outside imaging studies. 6. Bilateral nephrolithiasis. 7. There is mild nonspecific infiltration identified around the pancreatic tail. Correlate with clinical findings and serum amylase/lipase levels for evidence of acute pancreatitis. 8. Additional findings as above. Hospital Course (1) Abscess: presented to the hospital with sepsis syndrome (see below). Source identified: abscess on back Right low back s/p I&D on 07/31 with subsequent sugical debridement on 08/03 Deep Wound Culture Final 08/05/21-804 Organism 1 Pseudomonas aeruginosa Quantity Rare Sens Sensitivities to Follow +MixWound Plus Low Counts of Probable Skin Chantel Organism 2 Anaerobic gram positive cocci Quantity Moderate Sens No Sensitivities to Follow Sensitivity results indicate a Multiply-Resistant Organism. Phoned to CARLA LAZAR on 08/05/21 at 0723 by Isidoro Riggs. Results were verbalized back. Results were also called to [facility] Infection Control Answering Machine on 08/05/21 by Isidoro Riggs P aerugino RX M.I.C. --- --------- Cefepime I 16 Ceftazidime I 16 Ceftaz/Avibact S <=4 Ciprofloxacin R >2 Gentamicin R >8 Levofloxacin R >4 Meropenem R >8 Tobramycin S <=4 Pip/Tazo I 64 -Culture data positive for multidrug-resistant Pseudomonas and anaerobe Did have leukocytosis of 18.8 upon presentation which has since normalized (on 08/02) completed 14 days course of Avycaz/Flagyl. -Dressings per wound care. Wound VAC in place with further recommendations per general surgery -At this point, has completed full course of antibiotic therapy and [facility]. To see general surgeon in follow-up (2) Combative behavior: -Patient has not demonstrated any aggressive or combative behavior with me but has with multiple staff members -Security had to be called multiple times on patient -He was not confused but simply gets easily agitated resulting in him throwing things at staff and yelling obscenities -Dr. Hsieh had been in to talk with the patient to reiterate and reassure him that staff is doing the best that they can and that he needs to cooperate to complete his course of antibiotic therapy. Patient cooperated after this. (3) Acute hypoxemic respiratory failure: Patient was hydrated with IV fluids on account of his sepsis. Subsequently, had flash pulmonary edema/respiratory failure that improved with BiPAPsee below - acute on chronic CHF in addition to acute hypercapnic respiratory failure (MIXED PICTURE) 08/08 CXR:Cardiomegaly with pulmonary vascular congestion. Small pleural effusions with mild bibasilar opacities favoring atelectasis. diuresis with Lasix IV, good output, creatinine stable -Transitioned back to p.o. Lasix. Beta-blockade on board. -noted to NOT HAVE AN ECHO. Patient declines this Continue incentive spirometry -Upon presentation, patient not only had acute on compensated CHF but also acute hypercapnic respiratory failure (pH 7.22/PCO2 84) -cleared with BiPAP use -Upon further questioning, patient recently had an exacerbation of his COPD and has been on supplemental oxygen since -I suspect he has a component of obesity hypoventilation syndrome and/or AMBERLY -Utilize BiPAP when sleeping if available (lack of BiPAP given Covid pandemic and need for other patients) -Encouraged staff to down titrate supplemental oxygen to maintain a pulse ox of 90 to 92% (avoid a pulse ox greater than 92 given risk for hypercapnia) -Encourage out of bed to chair--> patient refusing -will need sleep study as an outpatient (4) Sepsis: SIRS 2, Qsofa-2 On admission, Leukocytosis of 18.81 Leukocytosis normalized, lactate negative, pro-John negative Fluids discontinued Source control as above Antibiotics as above (5) HLD (hyperlipidemia): Atorvastatin 40mg daily (6) Seizure: Continue with Depakote (7) Obstructive lung disease: Past smoker - quit in 2011 per - Continue albuterol - Continue Theophylline -Theophylline serum level normal at 10 mcg/mL - Abx as noted (8) HTN (hypertension): Continue metoprolol as long as remains normotensive (9) Diabetes: -Continue Lantus -Continue NovoLog sliding scale insulin (10) Dementia: Cotninue with aricept (11) Renal stones: Oxalate stone in urine- noted on CT scan- numerous - noted with right sided hydronephrosis- with possible UPJ obstruction - Urology consulted. 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 Sepsis Syndrome- resolved 2. Abscess of the back- s/p I&D 3. Flash pulmonary edema (secondary to hydration from sepsis) 4. Acute Hypercapnic Respiratory Failure Activity: Resume your previous activity Non-emergency contact: Surgeon Call non-emergency contact if: you have any medication questions Follow-up/Referrals: Mera Tamayo [Primary Care Provider] - Diet: Carb Consistent or DM2 Addtl Attending Provider Instructions: - Patient was hospitalized with Sepsis Syndrome-- due to an abscess on the back - you subsequently underwent an I&D - you completed a full course of antibiotics - you now have a wound vac in place. Need to follow up with wound care. - you need to follow up with the Surgeon - you come in to the hospital on Supplemental Oxygen. You did have an elevated carbon dioxide level while in the hospital. YOU NEED TO TAKE CAUTION WITH YOUR OXYGEN in take you want your pulse ox to remain between 88-90% and no >92% - would recommend an echocardiogram (declined having this while in house) - recommend an overnight sleep study (suspect sleep apnea/obesity hypoventilation syndrome) Pending Studies at Discharge: No Stand-Alone Forms: My [facility] Skilled Items Patient informed of condition?: Yes DNR: No Discharge Level of Care: Skilled Communicable Disease: No Discharge Prognosis: Stable Lines: None Urinary Catheter: No Medications and DC Order Prescriptions: New furosemide 20 mg Tablet 20 mg PO QAM Qty: 30 RF: 0 terazosin 2 mg capsule 2 mg PO DAILY Qty: 30 RF: 0 Continued atorvastatin 40 mg Tablet 40 mg PO HS RF: 0 donepezil [Aricept] 5 mg Tablet 5 mg PO DAILY RF: 0 divalproex 250 mg Tablet,Delayed Release (Dr/Ec) 250 mg PO BID RF: 0 aspirin 81 mg Tablet,Chewable 81 mg PO DAILY RF: 0 ipratropium-albuterol 18-103 mcg/actuation Aerosol 1 spray INHALATION QID RF: 0 cholecalciferol (vitamin D3) 25 mcg (1,000 unit) Tablet 25 mcg PO DAILY RF: 0 acetazolamide 500 mg Capsule, Extended Release 500 mg PO DAILY RF: 0 sertraline 100 mg Tablet 100 mg PO DAILY RF: 0 terazosin 2 mg Capsule 2 mg PO DAILY RF: 0 quetiapine [Seroquel] 50 mg Tablet 50 mg PO HS RF: 0 guaifenesin 600 mg Tablet Extended Release 12hr 600 mg PO Q12H RF: 0 Lactobacillus Probiotic 1 tab PO QAM RF: 0 pediatric multivitamin Tablet,Chewable 1 tab PO DAILY RF: 0 Lantus Solostar U-100 Insulin 100 unit/mL (3 mL) Insulin Pen 35 unit SUBCUT HS RF: 0 potassium chloride 20 mEq Tablet Extended Release 20 meq PO WM RF: 0 theophylline 600 mg Tablet Extended Release 24 Hr 600 mg PO DAILY RF: 0 metoprolol tartrate 25 mg Tablet 12.5 mg PO BID RF: 0 acetaminophen 325 mg Tablet 650 mg PO Q4 MDD 3g PRN (Reason: Fever Or Pain) RF: 0 albuterol sulfate 90 mcg/actuation Hfa Aerosol Inhaler 1 puff INHALATION Q4 PRN (Reason: Shortness Of Breath) RF: 0 Humulin R Regular U-100 Insuln 100 unit/mL Solution 1 sliding scale dose SUBCUT ACHS RF: 0 Discontinued sulfamethoxazole-trimethoprim [Bactrim DS] 800-160 mg Tablet 1 tab PO Q12H RF: 0 Discharge Orders: Discharge Order (Routine); Ordered 08/19/21 Ordered By: Ana M Vogt/Other Patient Handouts: A1C, Managing Type 2 Diabetes, Negative Pressure Wound Therapy Admission Data Admit Date/Time: 07/31/21 21:01 Attending Provider: Jose Luis Hsieh Admit Provider: Salvador Cardoso Primary Care Provider: Mera Tamayo Other Providers: [facility], ; Juilo C Fung ; Salvador Cardoso ; Ana Mcknight ; Geno Mary Other Interventions: Discharge Summary Assessment (RN) Last Done: 08/19/21 15:28 Supervising Physician Co-Signing Physician Notes Patient seen and examined on the day of discharge. I agree with the discharge summary by Ana M GEE. I have reviewed the chart including labs, imaging and plans for discharge. patient completed course of IV antibiotics, no issues the past few days, can return to [facility] for SNF care - Sepsis, back abscess, s/p incision and drainage: completed course of Avycaz/Flagyl, 14 days, could not be obtained by SNF so he completed course in the hospital Coding Level of Care Code Established Pt D/C DAY MANAGEMENT <30 MINS Patient Type Established Diagnoses Abscess L02.91 Combative behavior R46.89 Acute hypoxemic respiratory failure J96.01 Sepsis A41.9 HLD (hyperlipidemia) E78.5 Seizure R56.9 Obstructive lung disease J44.9 HTN (hypertension) I10 Diabetes E11.9 Dementia F03.90 Renal stones N20.[address] scan R93.89 Infection with Pseudomonas aeruginosa resistant to multiple drugs A49.8; Z16.24 Time Spent (min) 25
== END 2021-08-19 17:00 | DRG 853 ==
LOC: ED 16:36 → 2S 21:01 → SUATTDRO 21:01 → 2S 08-01 00:08 → 3E 08-09 13:37

== ENCOUNTER 2021-10-06 09:56 | Inpatient (IN) ==
--- NOTE | 2021-10-06 09:59 | Emergency Department Note ---
ED Provider Note NAME: TREVA PERKINS AGE: 71 SEX: M : 1950 ARRIVES VIA: Ambulance INFORMANT: patient, ED PROVIDER(S): Fei Quevedo MD Chief Complaint: [] HPI: [] Patient was here most recently in August due to concern for acute on chronic respiratory failure with flash pulmonary edema hypoxemia and hypercapnia. The patient also had an abscess of the back status post I&D with wound VAC and sepsis. Patient does present today due to concern for shortness of breath. ROS: See HPI for pertinent positives and negatives. A total of 10 systems were reviewed and otherwise negative. Past medical history: See below Surgical history: See below Social history: See below Physical Exam: GENERAL: [Well appearing, well nourished,] NAD, [wearing glasses,][wearing a mask,] non-toxic. EYE EXAM: Normal conjunctiva. PERRL, no anisocoria and EOM's grossly intact w/o pain. [OROPHARYNX: Moist mucus membranes. Grossly normal dentition. [No exudate, posterior pharynx is clear, no tonsillar/uvular deviation or swelling. No cervical adenopathy, no submental, submandibular, or sublingual swelling.]] NECK: Supple, no nuchal rigidity, no adenopathy, non-tender. No signs of men ingismus. [FROM of the neck with good chin to chest and neck extension. No stridor.] LUNGS: Clear to auscultation. Normal chest wall mechanics. HEART: NSR, no MRG. ABDOMEN: Abdomen soft, non-tender, normo-active bowel sounds, no masses, no rebound or guarding. BACK: No CVA TTP. SKIN: No rashes and no bruising. UPPER EXTREMITIES: Upper extremities are grossly normal. LOWER EXTREMITIES: Grossly normal, no edema. NEURO EXAM: A&O x3, cranial nerves II-XII grossly intact, normal speech, moves all 4 extremities on command w/o issue. [Good finger to nose, no drift, no sensory deficits.] Differential diagnoses: [] Course: Patient was seen and evaluated the bedside. Full history physical exam was performed. [EKG interpreted by me] [] Imaging Studies: See Below [Cardiac monitoring: An order was placed for continuous cardiac monitoring. 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 Control Required: No Beliefs That Will Affect Care: None marital status: Current Living Situation: Spouse How many Children do You have: 2 Feels Safe at Home: Yes Assistive Devices: Oxygen - Continuous Allergies Allergies Allergy/AdvReac Type Severity Reaction Status Date / Time ketorolac [From Toradol] Allergy Unknown Unknown Verified 09/09/21 08:34 Home Meds Home Medications Medication Instructions Recorded Confirmed Lactobacillus Probiotic 1 tab PO QAM 07/31/21 09/09/21 acetaminophen 325 mg tablet 650 mg PO Q4 PRN MDD 3g 07/31/21 09/09/21 acetazolamide 500 mg 500 mg PO DAILY 07/31/21 09/09/21 capsule,extended release albuterol sulfate 90 mcg/actuation 1 puff INHALATION Q4 PRN 07/31/21 09/09/21 aerosol inhaler aspirin 81 mg chewable tablet 81 mg PO DAILY 07/31/21 09/09/21 atorvastatin 40 mg tablet 40 mg PO HS 07/31/21 09/09/21 cholecalciferol (vitamin D3) 25 25 mcg PO DAILY 07/31/21 09/09/21 mcg (1,000 unit) tablet divalproex 250 mg tablet,delayed 250 mg PO BID 07/31/21 09/09/21 release donepezil 5 mg tablet (Aricept) 5 mg PO DAILY 07/31/21 09/09/21 guaifenesin 600 mg tablet, 600 mg PO Q12H 07/31/21 09/09/21 extended release 12 hr insulin glargine 100 unit/mL (3 35 unit SUBCUT HS 07/31/21 09/09/21 mL) subcutaneous pen (Lantus Solostar U-100 Insulin) insulin regular human 100 unit/mL 1 sliding scale dose SUBCUT ACHS 07/31/21 09/09/21 injection solution (Humulin R Regular U-100 Insulin) ipratropium 18 mcg-albuterol 103 1 spray INHALATION QID 07/31/21 09/09/21 mcg/actuation aerosol inhaler metoprolol tartrate 25 mg tablet 12.5 mg PO BID 07/31/21 09/09/21 pediatric multivitamin 1 tab PO DAILY 07/31/21 09/09/21 potassium chloride 20 mEq 20 meq PO WM 07/31/21 09/09/21 tablet,extended release quetiapine 50 mg tablet (Seroquel) 50 mg PO HS 07/31/21 09/09/21 sertraline 100 mg tablet 100 mg PO DAILY 07/31/21 09/09/21 terazosin 2 mg capsule 2 mg PO DAILY 07/31/21 09/09/21 theophylline 600 mg 600 mg PO DAILY 07/31/21 09/09/21 tablet,extended release 24 hr Previous Rx's Medication Instructions Recorded furosemide 20 mg tablet 20 mg PO QAM #30 tab 08/19/21 terazosin 2 mg capsule 2 mg PO DAILY #30 cap 08/19/21 Results & Data (ED) Home Medications Current Medication List: was personally reviewed by me Laboratory Data Attestation: I reviewed the patient's lab results. Discharge Plan Visit Data Chief Complaint: Shortness of Breath/Dyspnea Stated Complaint: SOB ED Provider: Fei Quevedo Forms Stand Alone Forms: My [facility] Prescriptions Prescriptions: No Action atorvastatin 40 mg Tablet 40 mg PO HS RF: 0 donepezil [Aricept] 5 mg Tablet 5 mg PO DAILY RF: 0 divalproex 250 mg Tablet,Delayed Release (Dr/Ec) 250 mg PO BID RF: 0 aspirin 81 mg Tablet,Chewable 81 mg PO DAILY RF: 0 ipratropium-albuterol 18-103 mcg/actuation Aerosol 1 spray INHALATION QID RF: 0 cholecalciferol (vitamin D3) 25 mcg (1,000 unit) Tablet 25 mcg PO DAILY RF: 0 acetazolamide 500 mg Capsule, Extended Release 500 mg PO DAILY RF: 0 sertraline 100 mg Tablet 100 mg PO DAILY RF: 0 terazosin 2 mg Capsule 2 mg PO DAILY RF: 0 quetiapine [Seroquel] 50 mg Tablet 50 mg PO HS RF: 0 guaifenesin 600 mg Tablet Extended Release 12hr 600 mg PO Q12H RF: 0 Lactobacillus Probiotic 1 tab PO QAM RF: 0 pediatric multivitamin Tablet,Chewable 1 tab PO DAILY RF: 0 Lantus Solostar U-100 Insulin 100 unit/mL (3 mL) Insulin Pen 35 unit SUBCUT HS RF: 0 potassium chloride 20 mEq Tablet Extended Release 20 meq PO WM RF: 0 theophylline 600 mg Tablet Extended Release 24 Hr 600 mg PO DAILY RF: 0 metoprolol tartrate 25 mg Tablet 12.5 mg PO BID RF: 0 acetaminophen 325 mg Tablet 650 mg PO Q4 MDD 3g PRN (Reason: Fever Or Pain) RF: 0 albuterol sulfate 90 mcg/actuation Hfa Aerosol Inhaler 1 puff INHALATION Q4 PRN (Reason: Shortness Of Breath) RF: 0 Humulin R Regular U-100 Insuln 100 unit/mL Solution 1 sliding scale dose SUBCUT ACHS RF: 0 furosemide 20 mg Tablet 20 mg PO QAM Qty: 30 RF: 0 terazosin 2 mg capsule 2 mg PO DAILY Qty: 30 RF: 0 Referrals Referrals: Mera Tamayo [Primary Care Provider] -
--- NOTE | 2021-10-06 10:18 | Emergency Department Note ---
History of Present Illness General Chief complaint: Shortness of Breath/Dyspnea Stated complaint: SOB Time Seen by Provider: 10/06/21 09:57 History of Present Illness 71-year-old male presents to the ED with a chief complaint of shortness of breath. The patient states that he has been short of breath for the past week progressively worsening. He typically uses a couple of liters of oxygen at home. [place] and he was sent in here for evaluation. Because of some rales, the patient was given 60 mg of oral Lasix at home today. EMS provided some IV Solu-Medrol and a DuoNeb treatment. On the DuoNeb treatment, his saturations up to 93%. Denies any chest pains. No fevers. He does have a chronic cough with some clear sputum. That seems to have worsened slightly recently. No color to the sputum. No additional complaints. Home Medications Medication Instructions Recorded Confirmed Type Lactobacillus Probiotic 1 tab PO QAM 07/31/21 09/09/21 History acetaminophen 325 mg tablet 650 mg PO Q4 PRN MDD 3g 07/31/21 09/09/21 History acetazolamide 500 mg 500 mg PO DAILY 07/31/21 09/09/21 History capsule,extended release albuterol sulfate 90 mcg/actuation 1 puff INHALATION Q4 PRN 07/31/21 09/09/21 History aerosol inhaler aspirin 81 mg chewable tablet 81 mg PO DAILY 07/31/21 09/09/21 History atorvastatin 40 mg tablet 40 mg PO HS 07/31/21 09/09/21 History cholecalciferol (vitamin D3) 25 25 mcg PO DAILY 07/31/21 09/09/21 History mcg (1,000 unit) tablet divalproex 250 mg tablet,delayed 250 mg PO BID 07/31/21 09/09/21 History release donepezil 5 mg tablet (Aricept) 5 mg PO DAILY 07/31/21 09/09/21 History guaifenesin 600 mg tablet, 600 mg PO Q12H 07/31/21 09/09/21 History extended release 12 hr insulin glargine 100 unit/mL (3 35 unit SUBCUT HS 07/31/21 09/09/21 History mL) subcutaneous pen (Lantus Solostar U-100 Insulin) insulin regular human 100 unit/mL 1 sliding scale dose SUBCUT ACHS 07/31/21 09/09/21 History injection solution (Humulin R Regular U-100 Insulin) ipratropium 18 mcg-albuterol 103 1 spray INHALATION QID 07/31/21 09/09/21 History mcg/actuation aerosol inhaler metoprolol tartrate 25 mg tablet 12.5 mg PO BID 07/31/21 09/09/21 History pediatric multivitamin 1 tab PO DAILY 07/31/21 09/09/21 History potassium chloride 20 mEq 20 meq PO WM 07/31/21 09/09/21 History tablet,extended release quetiapine 50 mg tablet (Seroquel) 50 mg PO HS 07/31/21 09/09/21 History sertraline 100 mg tablet 100 mg PO DAILY 07/31/21 09/09/21 History terazosin 2 mg capsule 2 mg PO DAILY 07/31/21 09/09/21 History theophylline 600 mg 600 mg PO DAILY 07/31/21 09/09/21 History tablet,extended release 24 hr furosemide 20 mg tablet 20 mg PO QAM #30 tab 08/19/21 09/09/21 Rx terazosin 2 mg capsule 2 mg PO DAILY #30 cap 08/19/21 09/09/21 Rx Allergies Allergy/AdvReac Type Severity Reaction Status Date / Time ketorolac [From Toradol] Allergy Unknown Unknown Verified 09/09/21 08:34 Past Med/Surg History Medical History CHF (congestive heart failure) Dementia Diabetes HLD (hyperlipidemia) HTN (hypertension) Hydronephrosis of right kidney No pertinent family history Obesity Obstructive lung disease Smoker Surgical History No pertinent past surgical history Social History Smoking Status: Former smoker Hx Alcohol Use: No Hx Substance Use: No Preferred Language: Guamanian Communication Ability: Impaired Bearing Maker Required: No Beliefs That Will Affect Care: None marital status: Current Living Situation: Spouse How many Children do You have: 2 Feels Safe at Home: Yes Assistive Devices: Oxygen - Continuous Review of Systems A total of 10 systems reviewed and were otherwise negative Physical Exam Vital Signs Vital Signs - 24 hr 10/06/21 10:08 10/06/21 10:44 10/06/21 11:08 Temperature 37.3 C Temperature Source Axillary Pulse Rate 126 H Pulse Rate [Apical] 121 H 126 H Respiratory Rate 28 H 24 24 Respiratory Effort / Characteristics Spontaneous Blood Pressure 88/70 L Blood Pressure [Right Arm] 134/76 Blood Pressure Mean 76 Blood Pressure Mean [Right Arm] 95 Pulse Oximetry 75 L 85 L 90 Oxygen Delivery Method Room Air Non-rebreather High Flow Nasal Cannula Oxygen Flow Rate 15 40 Fraction of Inspired Oxygen 100 Sepsis Recent Fever Within 48 Hours No Sepsis New/Unexplained Change in Mental Status No Sepsis Action Taken by Nursing Physician Notified 10/06/21 11:19 10/06/21 12:00 10/06/21 13:00 Temperature Temperature Source Pulse Rate Pulse Rate [Apical] 123 H 124 H 108 H Respiratory Rate 22 18 18 Respiratory Effort / Characteristics Blood Pressure Blood Pressure [Right Arm] 125/76 130/80 124/73 Blood Pressure Mean Blood Pressure Mean [Right Arm] 92 96 90 Pulse Oximetry 92 96 94 Oxygen Delivery Method High Flow Nasal Cannula High Flow Nasal Cannula High Flow Nasal Cannula Oxygen Flow Rate Fraction of Inspired Oxygen Sepsis Recent Fever Within 48 Hours Sepsis New/Unexplained Change in Mental Status Sepsis Action Taken by Nursing 10/06/21 14:23 Temperature Temperature Source Pulse Rate Pulse Rate [Apical] 113 H Respiratory Rate 24 Respiratory Effort / Characteristics Spontaneous Blood Pressure Blood Pressure [Right Arm] Blood Pressure Mean Blood Pressure Mean [Right Arm] Pulse Oximetry 90 Oxygen Delivery Method High Flow Nasal Cannula Oxygen Flow Rate 40 Fraction of Inspired Oxygen 100 Sepsis Recent Fever Within 48 Hours Sepsis New/Unexplained Change in Mental Status Sepsis Action Taken by Nursing CONSTITUTIONAL/VITAL SIGNS: Reviewed / noted above. GENERAL: Non-toxic in appearance. INTEGUMENTARY: Warm, dry, and [place]. HEAD: Normocephalic. EYES: without scleral icterus or trauma. ENT/OROPHARYNX: clear and moist. LYMPHADENOPATHY/NECK: Is supple without lymphadenopathy or meningismus. RESPIRATORY: Some rhonchi and basilar rales to auscultation bilaterally. Mild to moderate increased work of breathing. CARDIOVASCULAR: Regular rate and rhythm. GI/ABDOMEN: Soft and nontender. No organomegaly or pulsatile mass. EXTREMITIES: Warm and well perfused. Pedal edema. BACK: No CVA tenderness. NEUROLOGICAL: Intact without focal deficits. PSYCHIATRIC: normal affect. MUSCULOSKELETAL: Normally developed with good muscle tone. TRIAGE NURSING DOCUMENTATION REVIEWED. Course Administered Medications Discontinued Medications Ioversol (Optiray 320 125ml) 121 ml IV ONCE ONE Stop: 10/06/21 13:55 Last Admin: 10/06/21 13:54 Dose: 121 ml Documented by: [id number] Critical Care Time Critical Care Time: Yes Total Critical Care Time: 30 I have personally spent 30 minutes of critical care time in the direct management of this patient. This includes bedside care, interpretation of nya gnostic studies, and testing, discussion with consultants, patient, and family members, and other required patient management activities. This 30 minutes is in excess of all separately billable procedures. Medical Decision Making Differential Diagnosis The differential was considered includes acute myocardial infarction, acute coronary syndrome, myocarditis, pericarditis, pericardial effusions /tamponad, esophageal perforation, pulmonary embolism, pneumonia, pneumothorax, cardiomyopathy, congestive heart, anemia , COPD/asthma exacerbation. Medical Records Attestation: I reviewed the patient's medical records. Home Medications Current Medication List: was personally reviewed by me Laboratory Data Attestation: I reviewed the patient's lab results. Result diagrams: 10/06/21 10:30 10/06/21 10:30 Lab Results 10/06/21 10/06/21 10/06/21 Range/Units 10:30 10:30 10:35 WBC 10.91 H (4.8-10.8) K/uL RBC 4.32 L (4.7-6.1) M/uL Hgb 11.4 L (14.0-18.0) g/dL Hct 40.9 L (42-52) % MCV 94.7 (80-100) fL MCH 26.4 (25-34) pg MCHC 27.9 L (32-36) g/dL RDW Std Deviation 58.2 H (36.4-46.3) fL RDW Coeff of Raquel 16.7 H (11.5-14.5) % Plt Count 314 (130-400) K/uL MPV 11.6 H (7.4-10.4) fL Immature Gran % (Auto) 0.3 % Neut % (Auto) 81.8 % Lymph % (Auto) 9.6 % [place] % (Auto) 6.4 % Eos % (Auto) 1.9 % Baso % (Auto) 0.0 % Neut # (Auto) 8.92 H (1.4-6.5) K/uL Lymph # (Auto) 1.05 L (1.2-3.4) K/uL [place] # (Auto) 0.70 H (0.11-0.59) K/uL Eos # (Auto) 0.21 (0-0.5) K/uL Baso # (Auto) 0.00 (0-0.2) K/uL Immature Gran # (Auto) 0.03 H (0.00-0.02) K/uL Sodium 143 (136-145) mmol/L Potassium 3.6 (3.5-5.1) mmol/L Chloride 101 (98-107) mmol/L Carbon Dioxide 43 H* (21-32) mmol/L Anion Gap 0 L (3-11) BUN 18 (7-18) mg/dl Creatinine 0.63 (0.6-1.4) mg/dl Est Cr Clr Drug Dosing 159.0 ml/min Est GFR ( Amer) 116.5 ml/min Est GFR (Non-Af Amer) 100.5 ml/min BUN/Creatinine Ratio 27.8 H (10-20) Glucose 130 H (70-99) mg/dl Calcium 9.5 (8.5-10.1) mg/dl Magnesium 2.3 (1.8-2.4) mg/dl Total Bilirubin 0.2 (0.2-1) mg/dl AST 7 L (15-37) U/L ALT 10 L (12-78) U/L Alkaline Phosphatase 71 (45-117) U/L Troponin I < 0.015 (0-0.045) ng/ml NT-Pro-B Natriuret Pep 152 (0-900) pg/ml Total Protein 7.6 (6.4-8.2) gm/dl Albumin 2.3 L (3.4-5.0) gm/dl Globulin 5.3 H (2.5-4.0) gm/dl Albumin/Globulin Ratio 0.4 L (0.9-2) Urine Color Urine Appearance (Clear) Urine pH (4.5-7.5) Ur Specific [place] (1.000-1.030) Urine Protein (Negative) Urine Glucose (UA) (Negative) Urine Ketones (Negative) Urine Blood (Negative) Urine Nitrite (Negative) Urine Bilirubin (Negative) Urine Urobilinogen (Negative) Ur Leukocyte Esterase (Negative) Urine WBC (Auto) (0-5) /hpf Urine RBC (Auto) (0-4) /hpf U Hyaline Cast (Auto) (0-5) /lpf U Epithel Cells (Auto) (0-5) /lpf Urine Bacteria (Auto) (Negative) SARS-CoV-2 (PCR) NEGATIVE (Negative) Influenza Type A (PCR) Negative (Neg) Influenza Type B (PCR) Negative (Neg) RSV (RT-PCR) Negative (Neg) 10/06/21 Range/Units 10:50 WBC (4.8-10.8) K/uL RBC (4.7-6.1) M/uL Hgb (14.0-18.0) g/dL Hct (42-52) % MCV (80-100) fL MCH (25-34) pg MCHC (32-36) g/dL RDW Std Deviation (36.4-46.3) fL RDW Coeff of Raquel (11.5-14.5) % Plt Count (130-400) K/uL MPV (7.4-10.4) fL Immature Gran % (Auto) % Neut % (Auto) % Lymph % (Auto) % [place] % (Auto) % Eos % (Auto) % Baso % (Auto) % Neut # (Auto) (1.4-6.5) K/uL Lymph # (Auto) (1.2-3.4) K/uL [place] # (Auto) (0.11-0.59) K/uL Eos # (Auto) (0-0.5) K/uL Baso # (Auto) (0-0.2) K/uL Immature Gran # (Auto) (0.00-0.02) K/uL Sodium (136-145) mmol/L Potassium (3.5-5.1) mmol/L Chloride (98-107) mmol/L Carbon Dioxide (21-32) mmol/L Anion Gap (3-11) BUN (7-18) mg/dl Creatinine (0.6-1.4) mg/dl Est Cr Clr Drug Dosing ml/min Est GFR ( Amer) ml/min Est GFR (Non-Af Amer) ml/min BUN/Creatinine Ratio (10-20) Glucose (70-99) mg/dl Calcium (8.5-10.1) mg/dl Magnesium (1.8-2.4) mg/dl Total Bilirubin (0.2-1) mg/dl AST (15-37) U/L ALT (12-78) U/L Alkaline Phosphatase (45-117) U/L Troponin I (0-0.045) ng/ml NT-Pro-B Natriuret Pep (0-900) pg/ml Total Protein (6.4-8.2) gm/dl Albumin (3.4-5.0) gm/dl Globulin (2.5-4.0) gm/dl Albumin/Globulin Ratio (0.9-2) Urine Color Yellow Urine Appearance Clear (Clear) Urine pH 6.0 (4.5-7.5) Ur Specific [place] 1.012 (1.000-1.030) Urine Protein Negative (Negative) Urine Glucose (UA) Negative (Negative) Urine Ketones Negative (Negative) Urine Blood Negative (Negative) Urine Nitrite Negative (Negative) Urine Bilirubin Negative (Negative) Urine Urobilinogen Negative (Negative) Ur Leukocyte Esterase Trace H (Negative) Urine WBC (Auto) 1-5 (0-5) /hpf Urine RBC (Auto) 0-4 (0-4) /hpf U Hyaline Cast (Auto) 1-5 (0-5) /lpf U Epithel Cells (Auto) 10-20 H (0-5) /lpf Urine Bacteria (Auto) Negative (Negative) SARS-CoV-2 (PCR) (Negative) Influenza Type A (PCR) (Neg) Influenza Type B (PCR) (Neg) RSV (RT-PCR) (Neg) Imaging Data Radiologist's Impression: Chest X-Ray 10/06/21 10:11 XR chest 1V portable CLINICAL HISTORY: Dyspnea. Low oxygen saturation COMPARISON STUDY: 08/08/2021 TECHNIQUE: 1 view of the chest FINDINGS: Single frontal view of the chest demonstrates the cardiomediastinal silhouette to be within normal limits. The patient is rotated to the right which produces asymmetric density involving the right hemithorax when compared to the left. The lungs are clear of alveolar opacities. There is no evidence for pleural effusion. There is no evidence for vascular congestion. There is no acute osseous pathology. IMPRESSION: No acute cardiopulmonary disease. Minimal imaging artifact related to patient rotation to the right. ACT 112: Negative or not required by law. Electronically signed by: Anirudh Armas M.D. 10/06/2021 10:36 AM Chest CTA 10/06/21 12:53 CT ANGIOGRAM OF THE CHEST CLINICAL HISTORY: Dyspnea. COMPARISON STUDY: Chest x-ray dated 10/06/2021. TECHNIQUE: Following the IV administration of 121 cc of Optiray 320, CT angiogram of the chest was performed from the upper abdomen to the thoracic inlet utilizing the pulmonary embolus protocol. Images are reviewed in the axial, sagittal, and coronal planes. 3-D MIPS images are created and assessed. IV contrast was administered without complication. A dose lowering technique was utilized adhering to the principles of ALARA. CT DOSE: 945.54 mGy.cm FINDINGS: Thyroid: Mildly enlarged and heterogeneous. Thoracic aorta: The thoracic aorta is normal in caliber and demonstrates standard 3-vessel arch anatomy. No dissection is seen. Pulmonary vasculature: The pulmonary trunk is dilated, measuring 3.6 cm in diameter. This suggests pulmonary artery hypertension. There are no filling defects identified in main, lobar, or segmental pulmonary branches to suggest pulmonary embolus. Heart: The heart is enlarged and without pericardial effusion. There are coronary artery calcifications. Lungs and pleural spaces: Evaluation of the lung parenchyma is degraded by motion artifact. Emphysematous change is noted. There is consolidation throughout the right lower lobe which is almost completely collapsed. There is compensatory hyperinflation of the left lung and rightward shift of the mediastinum. There is trace left pleural effusion with left basilar atelectasis. There is a small and multiloculated right pleural effusion, with fluid tracking to the right apex. Fluid/debris fills the right lower lobe airways. The trachea appears clear. Airspace consolidation is seen posteriorly within the right upper lobe. Mediastinum: There is mediastinal lymphadenopathy. A right peritracheal node measures 2.5 x 2.1 cm.. Shanika: The right hilum is obscured by atelectasis/consolidation. The left hilum is clear. Axillae: There is no axillary lymphadenopathy. Upper abdomen: A small hiatal hernia is noted. Partially visualized upper ab dominal viscera is otherwise within normal limits. Skeletal structures: The skeletal structures are osteopenic. Degenerative change is seen throughout the thoracic spine. Arthritic change is seen in the shoulders. No lytic or blastic bony lesions are seen. IMPRESSION: 1. There is no evidence of pulmonary embolus in the main, lobar, or segmental pulmonary arteries. 2. Cardiomegaly and emphysema with evidence of pulmonary artery hypertension. 3. Fluid/debris fills the right lower lobe airways, and there is consolidation throughout the right lower lobe which is almost completely collapsed. Airspace consolidation is also seen posteriorly within the aerated right upper lobe. Correlate clinically for evidence of pneumonia/aspiration pneumonitis. Although considered less likely, follow-up to resolution is recommended to exclude the possibility of underlying obstructing lesion. 4. Trace pleural effusion is seen on the left. 5. There is a small and multiloculated right pleural effusion as above. 6. Mediastinal lymphadenopathy. ACT 112: Negative or not required by law. Electronically signed by: Flaco Batres M.D. 10/06/2021 2:15 PM ECG Data Attestation: I personally reviewed and interpreted this ECG as follows: Additional Comments: Twelve-lead EKG: Per my interpretation shows a sinus tach at a rate of 121. First-degree AV block. No significant change from 07/31/2021. No PVCs. Normal QTC. MDM Narrative 71-year-old male presents with increasing shortness of breath in the setting of history of COPD and congestive heart failure. He also had Covid last month. He does use 2 L of oxygen nasal cannula daily. Oxygen saturations on 2 L here after p.o. Lasix and DuoNeb treatment and Solu-Medrol given prior to ED arrival showed saturations in the mid to high 80s. The patient required high flow nasal cannula oxygen to maintain saturations above 90%. A chest x-ray did not show acute process, however CT scan shows aspiration possibly collapse and consolidation of the right lower lobe. CBC and chemistry panel was unremarkable. Urine did not show infection. Troponin was negative. Impression & Plan Aspiration pneumonia of right lower lobe, Hypoxia Discharge Plan Visit Data Chief Complaint: Shortness of Breath/Dyspnea Stated Complaint: SOB ED Provider: Blake Shields Discharge Problem: Aspiration pneumonia of right lower lobe, Hypoxia Patient Disposition: Being Evaluated by Hospitalist Forms Stand Alone Forms: My [facility], [facility] Emergency Department, Important Visit Information Prescriptions Prescriptions: No Action atorvastatin 40 mg Tablet 40 mg PO HS RF: 0 donepezil [Aricept] 5 mg Tablet 5 mg PO DAILY RF: 0 divalproex 250 mg Tablet,Delayed Release (Dr/Ec) 250 mg PO BID RF: 0 aspirin 81 mg Tablet,Chewable 81 mg PO DAILY RF: 0 ipratropium-albuterol 18-103 mcg/actuation Aerosol 1 spray INHALATION QID RF: 0 cholecalciferol (vitamin D3) 25 mcg (1,000 unit) Tablet 25 mcg PO DAILY RF: 0 acetazolamide 500 mg Capsule, Extended Release 500 mg PO DAILY RF: 0 sertraline 100 mg Tablet 100 mg PO DAILY RF: 0 terazosin 2 mg Capsule 2 mg PO DAILY RF: 0 quetiapine [Seroquel] 50 mg Tablet 50 mg PO HS RF: 0 guaifenesin 600 mg Tablet Extended Release 12hr 600 mg PO Q12H RF: 0 Lactobacillus Probiotic 1 tab PO QAM RF: 0 pediatric multivitamin Tablet,Chewable 1 tab PO DAILY RF: 0 Lantus Solostar U-100 Insulin 100 unit/mL (3 mL) Insulin Pen 35 unit SUBCUT HS RF: 0 potassium chloride 20 mEq Tablet Extended Release 20 meq PO WM RF: 0 theophylline 600 mg Tablet Extended Release 24 Hr 600 mg PO DAILY RF: 0 metoprolol tartrate 25 mg Tablet 12.5 mg PO BID RF: 0 acetaminophen 325 mg Tablet 650 mg PO Q4 MDD 3g PRN (Reason: Fever Or Pain) RF: 0 albuterol sulfate 90 mcg/actuation Hfa Aerosol Inhaler 1 puff INHALATION Q4 PRN (Reason: Shortness Of Breath) RF: 0 Humulin R Regular U-100 Insuln 100 unit/mL Solution 1 sliding scale dose SUBCUT ACHS RF: 0 furosemide 20 mg Tablet 20 mg PO QAM Qty: 30 RF: 0 terazosin 2 mg capsule 2 mg PO DAILY Qty: 30 RF: 0 Referrals Referrals: Mera Tamayo [Primary Care Provider] -
--- NOTE | 2021-10-06 10:37 | XRay Report ---
XR chest 1V portable CLINICAL HISTORY: Dyspnea. Low oxygen saturation COMPARISON STUDY: 08/08/2021 TECHNIQUE: 1 view of the chest FINDINGS: Single frontal view of the chest demonstrates the cardiomediastinal silhouette to be within normal li mits. The patient is rotated to the right which produces asymmetric density involving the right hemit horax when compared to the left. The lungs are clear of alveolar opacities. There is no evidence for pleural effusion. There is no evidence for vascular congestion. There is no acute osseous pathology. IMPRESSION: No acute cardiopulmonary disease. Minimal imaging artifact related to patient rotation to the right. ACT 112: Negative or not required by law. Electronically signed by: Anirudh Armas M.D. 10/06/2021 10:36 AM
[2021-10-06 11:09] LABS: Eosinophils # (auto) 0.21 K/uL (0-0.5); Eosinophils % (auto) 1.9 %; Hematocrit (blood only) 40.9 % (42-52); Hemoglobin 11.4 g/dL (14.0-18.0); Immature Granulocytes # (auto) 0.03 K/uL (0.00-0.02); Immature Granulocytes % (auto) 0.3 %; Lymphocytes # (auto) 1.05 K/uL (1.2-3.4); Lymphocytes % (auto) 9.6 %; Mean Corpuscular Hemoglobin 26.4 pg (25-34); Mean Corpuscular Hgb Conc 27.9 g/dL (32-36); Mean Corpuscular Volume 94.7 fL (80-100); Mean Platelet Volume 11.6 fL (7.4-10.4); Monocytes % (auto) 6.4 %; Neutrophils # (auto) 8.92 K/uL (1.4-6.5); Neutrophils % (auto) 81.8 %; Platelet Count 314 K/uL (130-400); RDW Coefficient of Variation 16.7 % (11.5-14.5); RDW Standard Deviation 58.2 fL (36.4-46.3); Red Blood Count 4.32 M/uL (4.7-6.1); White Blood Count 10.91 K/uL (4.8-10.8)
[2021-10-06 11:21] LABS: Alanine Aminotransferase 10 U/L (12-78); Albumin Globulin Ratio 0.4 (0.9-2); Albumin Level 2.3 gm/dl (3.4-5.0); Alkaline Phosphatase 71 U/L (45-117); Anion Gap 0 (3-11); Aspartate Aminotransferase 7 U/L (15-37); BUN Creatinine Ratio 27.8 (10-20); Bilirubin,Total 0.2 mg/dl (0.2-1); Blood Urea Nitrogen 18 mg/dl (7-18); Calcium 9.5 mg/dl (8.5-10.1); Carbon Dioxide 43 mmol/L (21-32); Chloride 101 mmol/L (98-107); Est GFR (African American) 116.5 ml/min; Est GFR (Non-African American) 100.5 ml/min; Globulin 5.3 gm/dl (2.5-4.0); Glucose 130 mg/dl (70-99); Magnesium 2.3 mg/dl (1.8-2.4); NT Pro B Type Natriuretic Pept 152 pg/ml (0-900); Potassium 3.6 mmol/L (3.5-5.1); Sodium 143 mmol/L (136-145); Total Protein 7.6 gm/dl (6.4-8.2); Troponin I < 0.015 ng/ml (0-0.045)
[2021-10-06 11:28] LABS: Appearance Urine Clear (Clear); Bacteria Urine Automated Negative (Negative); Bilirubin Urine Negative (Negative); Blood Urine Negative (Negative); Color Urine Yellow; Glucose Urine UA Negative (Negative); Ketones Urine Negative (Negative); Leukocyte Esterase Urine Trace (Negative); Nitrite Urine Negative (Negative); Protein Urine Negative (Negative); RBC Urine Automated 0-4 /hpf (0-4); Specific Gravity Urine 1.012 (1.000-1.030); Urobilinogen Urine Negative (Negative)
[2021-10-06 13:23] LABS: Influenza A virus by PCR Negative (Neg); Influenza B virus by PCR Negative (Neg); RSV by PCR Negative (Neg); SARS CoV2 RNA(COVID-19) InHosp NEGATIVE (Negative)
[2021-10-06] MEDS ORDERED: OPTIRAY 320 125ml IV ONE (13:54)
--- NOTE | 2021-10-06 14:17 | CT Scan Report ---
CT ANGIOGRAM OF THE CHEST CLINICAL HISTORY: Dyspnea. COMPARISON STUDY: Chest x-ray dated 10/06/2021. TECHNIQUE: Following the IV administration of 121 cc of Optiray 320, CT angiogram of the chest was pe rformed from the upper abdomen to the thoracic inlet utilizing the pulmonary embolus protocol. Images are reviewed in the axial, sagittal, and coronal planes. 3-D MIPS images are created and assessed. I V contrast was administered without complication. A dose lowering technique was utilized adhering to the principles of ALARA. CT DOSE: 945.54 mGy.cm FINDINGS: Thyroid: Mildly enlarged and heterogeneous. Thoracic aorta: The thoracic aorta is normal in caliber and demonstrates standard 3-vessel arch anato my. No dissection is seen. Pulmonary vasculature: The pulmonary trunk is dilated, measuring 3.6 cm in diameter. This suggests pu lmonary artery hypertension. There are no filling defects identified in main, lobar, or segmental pul monary branches to suggest pulmonary embolus. Heart: The heart is enlarged and without pericardial effusion. There are coronary artery calcificatio ns. Lungs and pleural spaces: Evaluation of the lung parenchyma is degraded by motion artifact. Emphysema tous change is noted. There is consolidation throughout the right lower lobe which is almost complete ly collapsed. There is compensatory hyperinflation of the left lung and rightward shift of the medias tinum. There is trace left pleural effusion with left basilar atelectasis. There is a small and multi loculated right pleural effusion, with fluid tracking to the right apex. Fluid/debris fills the right lower lobe airways. The trachea appears clear. Airspace consolidation is seen posteriorly within the right upper lobe. Mediastinum: There is mediastinal lymphadenopathy. A right peritracheal node measures 2.5 x 2.1 cm.. Shanika: The right hilum is obscured by atelectasis/consolidation. The left hilum is clear. Axillae: There is no axillary lymphadenopathy. Upper abdomen: A small hiatal hernia is noted. Partially visualized upper abdominal viscera is otherw ise within normal limits. Skeletal structures: The skeletal structures are osteopenic. Degenerative change is seen throughout t he thoracic spine. Arthritic change is seen in the shoulders. No lytic or blastic bony lesions are se en. IMPRESSION: 1. There is no evidence of pulmonary embolus in the main, lobar, or segmental pulmonary arteries. 2. Cardiomegaly and emphysema with evidence of pulmonary artery hypertension. 3. Fluid/debris fills the right lower lobe airways, and there is consolidation throughout the right l ower lobe which is almost completely collapsed. Airspace consolidation is also seen posteriorly withi n the aerated right upper lobe. Correlate clinically for evidence of pneumonia/aspiration pneumonitis . Although considered less likely, follow-up to resolution is recommended to exclude the possibility of underlying obstructing lesion. 4. Trace pleural effusion is seen on the left. 5. There is a small and multiloculated right pleural effusion as above. 6. Mediastinal lymphadenopathy. ACT 112: Negative or not required by law. Electronically signed by: Flaco Batres M.D. 10/06/2021 2:15 PM
[2021-10-06] MEDS ORDERED: CEFEPIME 2,000 MG/20 ML VIAL IV STA (14:20)
[2021-10-06] MEDS ORDERED: PIPERACILLIN/TAZOBACTAM 4.5 GM/120 ML BAG IV ONE (14:24)
[2021-10-06] MEDS ORDERED: PIPERACILL/TAZOBAC CONSULT ACTIVE PRN ×2 (14:24→16:03)
--- NOTE | 2021-10-06 14:31 | Electrocardiogram Report ---
Test Reason : Blood Pressure : / mmHG Vent. Rate : 121 BPM Atrial Rate : 121 BPM P-R Int : 212 ms QRS Dur : 082 ms QT Int : 268 ms P-R-T Axes : 053 079 051 degrees QTc Int : 380 ms Sinus tachycardia with 1st degree A-V block Otherwise normal ECG When compared with ECG of 31-JUL-2021 18:33, No significant change was found Confirmed by Rayshawn Jeter ([id number]) on 10/06/2021 2:30:20 PM Referred By: [facility] Confirmed By:Kevin Jeter
[2021-10-06] MEDS ORDERED: RAPID SEQUENCE INDUCTION BAG ONE (15:09)
--- NOTE | 2021-10-06 15:55 | History & Physical Report ---
Date of Service October 06, 2021 Assessment & Plan (1) Aspiration pneumonia of right lower lobe: Plan: Mucous plugging with debris in the airways with lobar collapse - patient on HFNC 40L with FIO2 100% - Patient rolled around in bed with transfer to ICU and had good expectoration of secretion and cough- which has improved since his evaluation in the EMD - Will try conservative therapy up front with hypertonic saline, nebs and vest therapy - Patient will likely require bronchoscopy to clear out airways if he is unable to effectively clear secretions- however as he is on such oxygen requirements will need intubated to perform this - Discussed with patient for intubation and bronchoscopy- risks, benefits, and need for procedures- updated by phone. No questions voiced and understands plans - Discussed with ICU will intubate in the ICU and bronchoscopy performed there if SPO2 not increase with the above treatment (2) Hypoxia: Plan: Acute hypoxia with respiratory failure secondary to aspiration pneumonia with collapse and small pleural effusion - Continue Zosyn 3.375 GM IV q8 hour - Intubate as above and wean as able once bronchoscopy completed and oxygenation optimized (3) Seizure: Plan: Continue Divalproex (4) HLD (hyperlipidemia): Plan: Continue statin 40mg PO QHS (5) HTN (hypertension): Plan: Hold his diamox His HCO3 is 31 and is chronically high - likely to obesity hypoventilation syndrome with non-compliance of his CPAP (6) Obstructive lung disease: Plan: Past smoker- continue albuterol and theophylline - HCO3 43- he is on Diamox at home as his diuretic for his hf - BiPAP follow HCO3 in morning (7) Diabetes: Plan: Continue lantus with aspart sliding scale CF 20 with Ration 1:9 ICU hyperglycemia protocol if needed (8) Obesity: Plan: Chronic- weight loss would be beneficial for as400 analyst risk reduction of CVD morbidity and mortality (9) Dementia: Plan: continue Aricept (10) Pleural effusion: Plan: small right sided plueral effusion - will re-evaluate with lung expansion for need/possibility for DX thora History of Present Illness Chief Complaint: SOB Primary Care Provider: [facility] 71 YOM with past medical history of: CHF, COPD, smoker, Encephalopathy, Dementia, DMII on insulin, depression , seizure history. Patient tis a resident at [facility] where he has been for the past 4-5 months, following admission for COPD exacerbation with complicating pneumonia in the summer. Patient was brought in today for hypoxia and difficulty breathing. He had a CT scan of the chest performed which reveals Fluid/debris fills the right lower lobe airways, and there is consolidation throughout the right lower lobe which is almost completely collapsed with airway consolidation. Patient was hypoxic and tachypneic on arrival and was placed on HFNC at 40L and 100% FIo2, with SPo2 88- 92%. Patient increase in Spo2 with sitting up but stilly hypoxic and dyspneic with movement. Will admit to ICU for aggressive chest PT and likely may need intubation to perform bronchoscopy to clear out his airways. Case discussed with ICU. Thank you for your assistance. Will continue with Zosyn 3.375 GM IV q8 hours. BiPAP hypertonic and vest percussion therapy with flutter valve QID. Unsure of vaccination status, but COVID test on admission is: NEGATIVE Allergies Allergy/AdvReac Type Severity Reaction Status Date / Time ketorolac [From Toradol] Allergy Unknown Unknown Verified 10/06/21 14:53 Home Medications Medication Instructions Recorded Confirmed Type Lactobacillus acidophilus 0 mmu cells PO DAILY #0 07/31/21 10/06/21 History acetaminophen 325 mg tablet 650 mg PO Q4 PRN MDD 3g 07/31/21 10/06/21 History acetazolamide 500 mg 500 mg PO DAILY 07/31/21 10/06/21 History capsule,extended release albuterol sulfate 90 mcg/actuation 1 puff INHALATION Q4 PRN 07/31/21 10/06/21 History aerosol inhaler aspirin 81 mg chewable tablet 81 mg PO DAILY 07/31/21 10/06/21 History atorvastatin 40 mg tablet 40 mg PO HS 07/31/21 10/06/21 History cholecalciferol (vitamin D3) 25 25 mcg PO DAILY 07/31/21 10/06/21 History mcg (1,000 unit) tablet divalproex 250 mg tablet,delayed 250 mg PO BID 07/31/21 10/06/21 History release donepezil 5 mg tablet (Aricept) 5 mg PO DAILY 07/31/21 10/06/21 History guaifenesin 600 mg tablet, 600 mg PO Q12H 07/31/21 10/06/21 History extended release 12 hr insulin glargine 100 unit/mL (3 35 unit SUBCUT HS 07/31/21 10/06/21 History mL) subcutaneous pen (Lantus Solostar U-100 Insulin) insulin regular human 100 unit/mL 1 sliding scale dose SUBCUT ACHS 07/31/21 10/06/21 History injection solution (Humulin R Regular U-100 Insulin) metoprolol tartrate 25 mg tablet 12.5 mg PO BID 07/31/21 10/06/21 History pediatric multivitamin 1 tab PO DAILY 07/31/21 10/06/21 History potassium chloride 20 mEq 20 meq PO WM 07/31/21 10/06/21 History tablet,extended release quetiapine 50 mg tablet (Seroquel) 50 mg PO HS 07/31/21 10/06/21 History sertraline 100 mg tablet 100 mg PO DAILY 07/31/21 10/06/21 History theophylline 600 mg 600 mg PO DAILY 07/31/21 10/06/21 History tablet,extended release 24 hr furosemide 20 mg tablet 20 mg PO QAM #30 tab 08/19/21 10/06/21 Rx terazosin 2 mg capsule 2 mg PO DAILY #30 cap 08/19/21 10/06/21 Rx Past Med/Surg History Medical History Acute hypoxemic respiratory failure CHF (congestive heart failure) Dementia Diabetes HLD (hyperlipidemia) HTN (hypertension) Hydronephrosis of right kidney No pertinent family history Obesity Obstructive lung disease Smoker Surgical History No pertinent past surgical history Social History Smoking Status: Former smoker Second Hand Exposure: No; Do You Dip or Chew Tobacco: No; Hx Alcohol Use: No Hx Substance Use: No Preferred Language: Romansh Communication Ability: Effective Computer Operator Required: No Beliefs That Will Affect Care: None marital status: Current Living Situation: Assisted How many Children do You have: 2 Other Information That Helps Us Care for You: No Feels Safe at Home: Yes Safety Concerns: Feels Safe At This Time Assistive Devices: Glasses Review of Systems Review of Systems: REVIEW OF SYSTEMS: Patient is poor historian with recall of short term events Constitutional: No fever, sweats or chills Eyes: No diplopia, no worsening or blurred vision ENT: normal hearing, no trouble swallowing Respiratory: (+) cough, sputum, dyspnea at rest or on exertion Cardiovascular: No chest pain, tightness or palpitations Abdomen: No pain, nausea, vomiting, diarrhea or constipation Musculoskeletal: No joint pain, calf pain, swelling Neurologic: No weakness, numbness/tingling, or balance problems Psychiatric: No anxiety or depression Skin: No rash or itch Physical Exam Physical Exam: PHYSICAL EXAM: General: awake, alert, no apparent distress Head: Normocephalic, atraumatic ENT: PERRL, EOMI, no pharyngeal exudate, mucous membranes moist Neuro: AAO x 3, speech clear and appropriate, strength intact bilaterally 5/5, sensation intact and equal all extremities and dermatomes, no pronator drift Chest: equal rise and fall of the chest, no accessory muscle use, no heaves or thrills, Clear to auscultation, on room air, Cardiac: Regular rate and rhythm, telemetry reviewed-sinus tach, skin warm dry, cap refill <3 seconds, peripheral pulses +2 no JVD, +1-2 edema in the lower extremities GI: NABS x 4 quadrants, soft, nontender to palpation, no rebound, guarding or tenderness : wilkerson to gravity no pain, no CVA tenderness, Extremities: Normal inspection, no peripheral edema or erythema, calfs nontender to palpation Psych: Normal mood and affect Skin: no rash or erythema Results & Data Results & Data ([facility]) Vital Signs (Past 12 Hours) Vital Signs Temp Pulse Pulse Resp BP BP Pulse Ox 10/06/21 15:26 36.7 C 110 H 22 145/98 H 93 10/06/21 15:00 108 H 20 118/68 93 10/06/21 14:23 113 H 24 90 10/06/21 13:00 108 H 18 124/73 94 10/06/21 12:00 124 H 18 130/80 96 10/06/21 11:19 123 H 22 125/76 92 10/06/21 11:08 126 H 24 90 10/06/21 10:44 37.3 C 121 H 24 134/76 85 L 10/06/21 10:08 126 H 28 H 88/70 L 75 L Laboratory Results Abnormal lab results 10/06/21 10/06/21 10/06/21 Range/Units 10:30 10:30 10:50 WBC 10.91 H (4.8-10.8) K/uL RBC 4.32 L (4.7-6.1) M/uL Hgb 11.4 L (14.0-18.0) g/dL Hct 40.9 L (42-52) % MCHC 27.9 L (32-36) g/dL RDW Std Deviation 58.2 H (36.4-46.3) fL RDW Coeff of Raquel 16.7 H (11.5-14.5) % MPV 11.6 H (7.4-10.4) fL Neut # (Auto) 8.92 H (1.4-6.5) K/uL Lymph # (Auto) 1.05 L (1.2-3.4) K/uL Ida # (Auto) 0.70 H (0.11-0.59) K/uL Immature Gran # (Auto) 0.03 H (0.00-0.02) K/uL Carbon Dioxide 43 H* (21-32) mmol/L Anion Gap 0 L (3-11) BUN/Creatinine Ratio 27.8 H (10-20) Glucose 130 H (70-99) mg/dl AST 7 L (15-37) U/L ALT 10 L (12-78) U/L Albumin 2.3 L (3.4-5.0) gm/dl Globulin 5.3 H (2.5-4.0) gm/dl Albumin/Globulin Ratio 0.4 L (0.9-2) Ur Leukocyte Esterase Trace H (Negative) U Epithel Cells (Auto) 10-20 H (0-5) /lpf Diagnostic Findings Chest X-Ray 10/06/21 10:11 XR chest 1V portable CLINICAL HISTORY: Dyspnea. Low oxygen saturation COMPARISON STUDY: 08/08/2021 TECHNIQUE: 1 view of the chest FINDINGS: Single frontal view of the chest demonstrates the cardiomediastinal silhouette to be within normal limits. The patient is rotated to the right which produces asymmetric density involving the right hemithorax when compared to the left. The lungs are clear of alveolar opacities. There is no evidence for pleural effusion. There is no evidence for vascular congestion. There is no acute osseous pathology. IMPRESSION: No acute cardiopulmonary disease. Minimal imaging artifact related to patient rotation to the right. ACT 112: Negative or not required by law. Electronically signed by: Anirudh Armas M.D. 10/06/2021 10:36 AM Chest CTA 10/06/21 12:53 CT ANGIOGRAM OF THE CHEST CLINICAL HISTORY: Dyspnea. COMPARISON STUDY: Chest x-ray dated 10/06/2021. TECHNIQUE: Following the IV administration of 121 cc of Optiray 320, CT angiogram of the chest was performed from the upper abdomen to the thoracic inlet utilizing the pulmonary embolus protocol. Images are reviewed in the axial, sagittal, and coronal planes. 3-D MIPS images are created and assessed. IV contrast was administered without complication. A dose lowering technique was utilized adhering to the principles of ALARA. CT DOSE: 945.54 mGy.cm FINDINGS: Thyroid: Mildly enlarged and heterogeneous. Thoracic aorta: The thoracic aorta is normal in caliber and demonstrates standard 3-vessel arch anatomy. No dissection is seen. Pulmonary vasculature: The pulmonary trunk is dilated, measuring 3.6 cm in diameter. This suggests pulmonary artery hypertension. There are no filling defects identified in main, lobar, or segmental pulmonary branches to suggest pulmonary embolus. Heart: The heart is enlarged and without pericardial effusion. There are coronary artery calcifications. Lungs and pleural spaces: Evaluation of the lung parenchyma is degraded by motion artifact. Emphysematous change is noted. There is consolidation throughout the right lower lobe which is almost completely collapsed. There is compensatory hyperinflation of the left lung and rightward shift of the mediastinum. There is trace left pleural effusion with left basilar atelectasis. There is a small and multiloculated right pleural effusion, with fluid tracking to the right apex. Fluid/debris fills the right lower lobe airways. The trachea appears clear. Airspace consolidation is seen posteriorly within the right upper lobe. Mediastinum: There is mediastinal lymphadenopathy. A right peritracheal node measures 2.5 x 2.1 cm.. Shanika: The right hilum is obscured by atelectasis/consolidation. The left hilum is clear. Axillae: There is no axillary lymphadenopathy. Upper abdomen: A small hiatal hernia is noted. Partially visualized upper abdominal viscera is otherwise within normal limits. Skeletal structures: The skeletal structures are osteopenic. Degenerative change is seen throughout the thoracic spine. Arthritic change is seen in the shoulders. No lytic or blastic bony lesions are seen. IMPRESSION: 1. There is no evidence of pulmonary embolus in the main, lobar, or segmental pulmonary arteries. 2. Cardiomegaly and emphysema with evidence of pulmonary artery hypertension. 3. Fluid/debris fills the right lower lobe airways, and there is consolidation throughout the right lower lobe which is almost completely collapsed. Airspace consolidation is also seen posteriorly within the aerated right upper lobe. Correlate clinically for evidence of pneumonia/aspiration pneumonitis. Although considered less likely, follow-up to resolution is recommended to exclude the possibility of underlying obstructing lesion. 4. Trace pleural effusion is seen on the left. 5. There is a small and multiloculated right pleural effusion as above. 6. Mediastinal lymphadenopathy. ACT 112: Negative or not required by law. Electronically signed by: Flaco Batres M.D. 10/06/2021 2:15 PM Medications Administered Discontinued Medications Piperacillin Sod/Tazobactam Sod (Zosyn) 4.5 gm in 120 mls @ 240 mls/hr IV NOW ONE Stop: 10/06/21 14:53 Last Admin: 10/06/21 15:30 Dose: 240 mls/hr Documented by: Ioversol (Optiray 320 125ml) 121 ml IV ONCE ONE Stop: 10/06/21 13:55 Last Admin: 10/06/21 13:54 Dose: 121 ml Documented by: [id number] ECG Additional Comments: Sinus tachycardia with 1st degree A-V block Otherwise normal ECG When compared with ECG of 31-JUL-2021 18:33, No significant change was found Confirmed by Rayshawn Jeter ([id number]) on 10/06/2021 2:30:20 PM Code Status & VTE Plan Code Status CODE: FULL VTE: Heparin sq VTE Prophylaxis Plan VTE Prophylaxis will be ordered: Yes Supervising Physician Co-Signing Physician Notes Patient is a 71 yo male who si being admitted for aspiration pneumonia During face to face encounter, a history and physical was obtained. I discussed plan of care with VINNIE Hurt and patient. Answered the patients questions. Patient will be admitted to ICU on BIPAP and antibiotics PG Care Time/CCT Total # of Minutes Spent Total Time Spent with Patient: Total time spent is greater than 50% in coordination of care (as documented) at patient's floor/unit and/or counseling patient: Coding Level of Care Code 37962 Initial Inpt Care Lvl 3 Diagnoses Aspiration pneumonia of right lower lobe J69.0 Aspiration pneumonia type: unspecified Hypoxia R09.02 Seizure R56.9 HLD (hyperlipidemia) E78.5 HTN (hypertension) I10 Obstructive lung disease J44.9 Diabetes E11.9 Obesity E66.9 Dementia F03.90 Pleural effusion J90 (1) Aspiration pneumonia of right lower lobe Aspiration pneumonia type: unspecified Qualified Code(s): J69.0 - Pneumonitis due to inhalation of food and vomit
[2021-10-06] MEDS ORDERED: ICU PROTOCOL FOR HYPERGLYCEMIA PRN (16:03)
[2021-10-06] MEDS ORDERED: ALBUTEROL HFA 8 GM INHALER INH PRN (16:03)
[2021-10-06] MEDS ORDERED: GLUCOSE 40% GEL 15 GM TUBE PO PRN (16:03)
[2021-10-06] MEDS ORDERED: ACETAMINOPHEN 325 MG TAB PO PRN (16:03)
[2021-10-06] MEDS ORDERED: GLUCOSE 10 TABS/TUBE PO PRN (16:03)
[2021-10-06] MEDS ORDERED: GLUCAGON FOR INJ 1 MG VIAL SQ PRN (16:03)
[2021-10-06] MEDS ORDERED: DEXTROSE 50% 50 ML SYRINGE IV PRN (16:03)
[2021-10-06] MEDS ORDERED: CARBOHYDRATES FOR HYPOGLYCEMIA PO PRN (16:03)
[2021-10-06] MEDS ORDERED: PROPOFOL IV EMULSION 10 MG/ML 100 ML VIAL IV ONE (16:08)
[2021-10-06] MEDS ORDERED: ROCURONIUM BROMIDE 10 MG/ML 5 ML VIAL IV ONE (16:09)
[2021-10-06] MEDS ORDERED: PNEUMOCOCCAL POLYSACCHARIDES 25 MCG/0.5 ML VIAL/SYR IM ONE (16:19)
[2021-10-06] MEDS ORDERED: INFLUENZA VACCINE HIGH DOSE PF 65+ 0.7 ML SYR IM ONE (16:19)
[2021-10-06] MEDS: INSULIN ASPART 100 UNITS/ML 3 ML PEN SC SCH ×2 (17:34→20:29)
[2021-10-06] MEDS: SODIUM CHLOR 7% 4 ML NEB NEB SCH (20:13)
--- NOTE | 2021-10-06 20:17 | Critical Care Consultation ---
Date of Consultation October 06, 2021 Assessment & Plan (1) Aspiration pneumonia of right lower lobe: (2) Acute hypoxemic respiratory failure: (3) Pleural effusion: Continue with broad-spectrum antibiotics. We will hold on intubation given that he he does not appear overly tachypneic or have increased work of breathing at this time. We will attempt conservative strategy for mucociliary clearance including chest physiotherapy 4 times a day, hypertonic saline twice daily and antibiotic therapy. Low threshold for intubation. Continue BiPAP therapy throughout the night due to acute on chronic hypoxemic and hypercapnic respiratory failure. There is a small loculated right pleural effusion which is going to be difficult to access given his body habitus and size of the effusion. We will trend with chest x-rays. Patient on theophylline for unclear reasons. Would benefit from outpatient PFTs. We will start the patient on duo nebs every 6 hours. NPO. Obtain speech therapy consult in the morning. Thank you for the consult. CRITICAL CARE TIME - I have personally spent 39 minutes of critical care time in the direct management of this patient. This is a life/limb threatening event. This includes time spent evaluating patient, direct bedside care, chart review, placing or ders, interpretation of diagnostic studies, discussion with consultants, patient, and family members, as well as other required patient management activities. This time is exclusive of all separately billable procedures, and teaching time and separate from and in addition to any other critical care service time. History of Present Illness Reason for Consultation: Acute hypoxemic respiratory failure Attending Physician: Babar Hummel History of Present Illness 71-year-old male with a history of COPD, CHF, morbid obesity, insulin- dependent diabetes mellitus and dementia presenting to the hospital due to s hortness of breath. He is a resident at [facility] for the past 4 to 5 months. He was brought in today due to shortness of breath and hypoxia. CT of his chest was completed which demonstrated right lower lobe collapse with surrounding loculated effusion. Debris was seen in the bronchus intermedius based on my interpretation. Patient was started on broad-spectrum antibiotics with Zosyn. Initial concern was for possible intubation as the patient required 40 L of high flow and 100% FiO2 to maintain his saturations. While I saw the patient he was on a nonrebreather saturating in the high 90s. He denies any significant shortness of breath at present. He is mildly tachypneic. He has periods of altered mental status, but mostly is lucid at this present time. Allergies Allergy/AdvReac Type Severity Reaction Status Date / Time ketorolac [From Toradol] Allergy Unknown Unknown Verified 10/06/21 14:53 Home Medications Medication Instructions Recorded Confirmed Type Lactobacillus acidophilus 0 mmu cells PO DAILY #0 07/31/21 10/06/21 History acetaminophen 325 mg tablet 650 mg PO Q4 PRN MDD 3g 07/31/21 10/06/21 History acetazolamide 500 mg 500 mg PO DAILY 07/31/21 10/06/21 History capsule,extended release albuterol sulfate 90 mcg/actuation 1 puff INHALATION Q4 PRN 07/31/21 10/06/21 History aerosol inhaler aspirin 81 mg chewable tablet 81 mg PO DAILY 07/31/21 10/06/21 History atorvastatin 40 mg tablet 40 mg PO HS 07/31/21 10/06/21 History cholecalciferol (vitamin D3) 25 25 mcg PO DAILY 07/31/21 10/06/21 History mcg (1,000 unit) tablet divalproex 250 mg tablet,delayed 250 mg PO BID 07/31/21 10/06/21 History release donepezil 5 mg tablet (Aricept) 5 mg PO DAILY 07/31/21 10/06/21 History guaifenesin 600 mg tablet, 600 mg PO Q12H 07/31/21 10/06/21 History extended release 12 hr insulin glargine 100 unit/mL (3 35 unit SUBCUT HS 07/31/21 10/06/21 History mL) subcutaneous pen (Lantus Solostar U-100 Insulin) insulin regular human 100 unit/mL 1 sliding scale dose SUBCUT ACHS 07/31/21 10/06/21 History injection solution (Humulin R Regular U-100 Insulin) metoprolol tartrate 25 mg tablet 12.5 mg PO BID 07/31/21 10/06/21 History pediatric multivitamin 1 tab PO DAILY 07/31/21 10/06/21 History potassium chloride 20 mEq 20 meq PO WM 07/31/21 10/06/21 History tablet,extended release quetiapine 50 mg tablet (Seroquel) 50 mg PO HS 07/31/21 10/06/21 History sertraline 100 mg tablet 100 mg PO DAILY 07/31/21 10/06/21 History theophylline 600 mg 600 mg PO DAILY 07/31/21 10/06/21 History tablet,extended release 24 hr furosemide 20 mg tablet 20 mg PO QAM #30 tab 08/19/21 10/06/21 Rx terazosin 2 mg capsule 2 mg PO DAILY #30 cap 08/19/21 10/06/21 Rx Patient History Medical History Acute hypoxemic respiratory failure CHF (congestive heart failure) Dementia Diabetes HLD (hyperlipidemia) HTN (hypertension) Hydronephrosis of right kidney No pertinent family history Obesity Obstructive lung disease Smoker Surgical History No pertinent past surgical history Social History Smoking Status: Former smoker Second Hand Exposure: No; Do You Dip or Chew Tobacco: No; Hx Alcohol Use: No Hx Substance Use: No Preferred Language: Welsh Communication Ability: Effective Purchasing Associate Required: No Beliefs That Will Affect Care: None marital status: Current Living Situation: Senior Living How many Children do You have: 2 Other Information That Helps Us Care for You: No Feels Safe at Home: Yes Safety Concerns: Feels Safe At This Time Assistive Devices: Glasses Review of Systems Review of Systems: All systems reviewed & are unremarkable except as noted in HPI & below Physical Exam Physical Exam: Constitutional: Morbidly obese appearing male in moderate distress on nonrebreather Eyes: Pupils are equal round and reactive to light. Conjunctivae are normal. Anicteric sclera. Ears nose, mouth and throat: Mallampati class 3. Normal posterior oropharynx. Uvula is midline. Neck: Trachea is midline. Visual inspection is normal. Respiratory: Diminished on the right. No wheezes. Cardiovascular: Regular rate and rhythm. No murmurs. No edema. Gastrointestinal: Normal bowel sounds, soft, nontender and nondistended. No hepatosplenomegaly noted. Musculoskeletal: Patient is able to move all extremities. Strength is 5 out of 5 in the upper and lower extremities. Skin: No rashes, warm dry and intact. Neurologic: No obvious focal neurological deficits seen. Psychiatric: Alert and oriented x3 with a euthymic affect. Results & Data Results & Data ([facility]) Vital Signs (Past 12 Hours) Vital Signs Temp Pulse Pulse Resp BP BP Pulse Ox 10/06/21 20:00 37 C 99 H 26 H 130/79 100 10/06/21 18:30 104 H 24 100 10/06/21 18:20 105 H 32 H 100 10/06/21 18:10 104 H 25 H 100 10/06/21 18:00 105 H 20 100 10/06/21 17:50 109 H 18 99 10/06/21 17:40 105 H 22 99 10/06/21 17:30 109 H 22 92 10/06/21 17:20 108 H 13 98 10/06/21 17:10 105 H 29 H 98 10/06/21 17:00 108 H 20 97 10/06/21 16:30 113 H 23 94 10/06/21 16:03 36.9 C 111 H 17 94/76 L 94 10/06/21 16:00 112 H 43 H 94/76 L 90 10/06/21 15:26 36.7 C 110 H 22 145/98 H 93 10/06/21 15:00 108 H 20 118/68 93 10/06/21 14:23 113 H 24 90 10/06/21 13:00 108 H 18 124/73 94 10/06/21 12:00 124 H 18 130/80 96 10/06/21 11:19 123 H 22 125/76 92 10/06/21 11:08 126 H 24 90 10/06/21 10:44 37.3 C 121 H 24 134/76 85 L 10/06/21 10:08 126 H 28 H 88/70 L 75 L Coding Level of Care Code Critical Care 1st 30-74 mins Diagnoses Aspiration pneumonia of right lower lobe J69.0 Aspiration pneumonia type: unspecified Acute hypoxemic respiratory failure J96.01 Pleural effusion J90 Time Spent (min) 39 (1) Aspiration pneumonia of right lower lobe Aspiration pneumonia type: unspecified Qualified Code(s): J69.0 - Pneumonitis due to inhalation of food and vomit
[2021-10-06] MEDS: PIPERACILLIN/TAZOBACTAM 4.5 GM in DEXTROSE 5% 100 ML IV SCH (20:25)
[2021-10-06] MEDS: METOPROLOL TARTRATE 25 MG TAB PO SCH (20:26)
[2021-10-06] MEDS: ATORVASTATIN 40 MG TAB PO SCH (20:27)
[2021-10-06] MEDS: HEPARIN SOD 5,000 UNIT/0.5 ML VIAL SQ SCH (20:31)
[2021-10-06] MEDS: INSULIN GLARGINE SOLOSTAR 100 UNITS/ML 3 ML PEN SQ SCH (20:31)
[2021-10-06] MEDS: QUEtiapine FUMARATE 25 MG TABLET PO SCH (20:50)
[2021-10-06] MEDS: ALBUT/IPRATROP 3MG/0.5MG NEB 3 ML VIAL NEB SCH (21:34)
[2021-10-07] MEDS: ALBUT/IPRATROP 3MG/0.5MG NEB 3 ML VIAL NEB SCH ×3 (01:29→20:50)
[2021-10-07] MEDS: PIPERACILLIN/TAZOBACTAM 4.5 GM in DEXTROSE 5% 100 ML IV SCH ×3 (03:47→20:11)
[2021-10-07 05:00] LABS: Eosinophils # (auto) 0.01 K/uL (0-0.5); Eosinophils % (auto) 0.1 %; Hematocrit (blood only) 39.6 % (42-52); Hemoglobin 10.9 g/dL (14.0-18.0); Immature Granulocytes # (auto) 0.03 K/uL (0.00-0.02); Immature Granulocytes % (auto) 0.4 %; Lymphocytes # (auto) 1.42 K/uL (1.2-3.4); Lymphocytes % (auto) 17.5 %; Mean Corpuscular Hemoglobin 25.9 pg (25-34); Mean Corpuscular Hgb Conc 27.5 g/dL (32-36); Mean Corpuscular Volume 94.1 fL (80-100); Mean Platelet Volume 10.4 fL (7.4-10.4); Monocytes # (auto) 0.67 K/uL (0.11-0.59); Monocytes % (auto) 8.2 %; Neutrophils % (auto) 73.8 %; Platelet Count 262 K/uL (130-400); RDW Coefficient of Variation 16.6 % (11.5-14.5); RDW Standard Deviation 56.9 fL (36.4-46.3); Red Blood Count 4.21 M/uL (4.7-6.1); White Blood Count 8.13 K/uL (4.8-10.8)
[2021-10-07] MEDS: HEPARIN SOD 5,000 UNIT/0.5 ML VIAL SQ SCH (05:32)
[2021-10-07 05:47] LABS: BUN Creatinine Ratio 30.8 (10-20); Calcium 9.4 mg/dl (8.5-10.1); Est GFR (African American) 114.3 ml/min; Est GFR (Non-African American) 98.6 ml/min; Magnesium 2.4 mg/dl (1.8-2.4); Phosphorus 3.8 mg/dl (2.5-4.9); Potassium 3.1 mmol/L (3.5-5.1)
[2021-10-07] MEDS: SODIUM CHLOR 7% 4 ML NEB NEB SCH ×3 (07:22→20:02)
[2021-10-07] MEDS: POTASSIUM CHLORIDE / WTR 10 MEQ/100 ML PLCT IV SCH ×4 (07:25→12:25)
[2021-10-07] MEDS: METOPROLOL TARTRATE 25 MG TAB PO SCH ×2 (08:14→20:00)
[2021-10-07] MEDS: ASPIRIN 81 MG ECTAB PO SCH (08:14)
[2021-10-07] MEDS: PANTOprazole 40 MG TAB PO SCH (08:14)
[2021-10-07] MEDS: THEOPHYLLINE 300MG EXTENDED REL TAB PO SCH (08:17)
[2021-10-07] MEDS: FUROSEMIDE 20 MG TAB PO SCH (08:17)
[2021-10-07] MEDS: TERAZOSIN HCL 1 MG CAP PO SCH (08:17)
[2021-10-07] MEDS: SERTRALINE HCL 100 MG TABLET PO SCH (08:18)
[2021-10-07] MEDS: DONEPEZIL HCL 5 MG TAB PO SCH (08:18)
[2021-10-07] MEDS: INSULIN ASPART 100 UNITS/ML 3 ML PEN SC SCH ×4 (08:20→19:58)
--- NOTE | 2021-10-07 08:21 | XRay Report ---
XR chest 1V portable CLINICAL HISTORY: follow up suspected pna. COMPARISON STUDY: 10/06/2021 and interval CTA chest from 10/06/2021 TECHNIQUE: 1 view of the chest FINDINGS: Single frontal view of the chest demonstrates the heart size to be enlarged. The patient is now cente red on the film. There is a confluent alveolar opacity at the right lung base most characteristic of pneumonia. The remainder of the lungs are clear. There is no evidence for pleural effusion. There is no evidence for vascular congestion. There is no acute osseous pathology. IMPRESSION: Confluent alveolar opacity at the right lung base is now seen radiographically characteri stic of the presence of pneumonia. ACT 112: Negative or not required by law. Electronically signed by: Anirudh Armas M.D. 10/07/2021 8:20 AM
--- NOTE | 2021-10-07 10:34 | Electrocardiogram Report ---
Test Reason : Blood Pressure : / mmHG Vent. Rate : 069 BPM Atrial Rate : 069 BPM P-R Int : 230 ms QRS Dur : 098 ms QT Int : 404 ms P-R-T Axes : 076 074 069 degrees QTc Int : 432 ms Sinus rhythm with 1st degree A-V block Otherwise normal ECG When compared with ECG of 06-OCT-2021 10:31, Vent. rate has decreased BY 52 BPM Confirmed by Rayshawn Jeter ([id number]) on 10/07/2021 10:34:20 AM Referred By: [facility] Confirmed By:Kevin Jeter
--- NOTE | 2021-10-07 11:14 | Critical Care Progress Note ---
Date of Service October 07, 2021 Assessment & Plan (1) Aspiration pneumonia of right lower lobe: (2) Acute hypoxemic respiratory failure: (3) Pleural effusion: (4) Acute and chronic respiratory failure with hypercapnia: Plan: Continue with broad-spectrum antibiotics. We will hold on intubation given that he he does not appear overly tachypneic or have increased work of breathing at this time. He appears to be improving with a conservative strategy for mucoci liary clearance including chest physiotherapy 4 times a day, hypertonic saline twice daily and antibiotic therapy. Continue BiPAP therapy at all times while sleeping. There is a small loculated right pleural effusion which is going to be difficult to access given his body habitus and size of the effusion. X-ray with improved aeration. Recommend repeat chest x-ray in 7 to 10 days. Patient on theophylline for unclear reasons. We will check a level. Would benefit from outpatient PFTs. Continue duo nebs. NPO. Speech therapy consult pending. Patient stable for downgrade out of the ICU. Admission and Anticipated Discharge Date Admission Date: October 06, 2021 Subjective Patient seen and examined this morning. Transition from BiPAP to oxygen mask and tolerating this at this time. No significant events overnight. Review of Systems Review of Systems: All systems reviewed & are unremarkable except as noted in HPI & below Physical Exam Physical Exam: Constitutional: Morbidly obese appearing male in no apparent distress. Eyes: Pupils are equal round and reactive to light. Conjunctivae are normal. Anicteric sclera. Ears nose, mouth and throat: Mallampati class 3. Normal posterior oropharynx. Uvula is midline. Neck: Trachea is midline. Visual inspection is normal. Respiratory: Diminished on the right. No wheezes. Cardiovascular: Regular rate and rhythm. No murmurs. No edema. Gastrointestinal: Normal bowel sounds, soft, nontender and nondistended. No hepatosplenomegaly noted. Musculoskeletal: Patient is able to move all extremities. Strength is 5 out of 5 in the upper and lower extremities. Skin: No rashes, warm dry and intact. Neurologic: No obvious focal neurological deficits seen. Psychiatric: Alert and oriented x3 with a euthymic affect. Results & Data Results & Data ([facility]) Vital Signs (Past 12 Hours) Vital Signs Temp Pulse Pulse Resp BP Pulse Ox 10/07/21 09:00 74 20 108/87 95 10/07/21 08:00 36.6 C 86 20 95 10/07/21 07:13 84 84 23 99 10/07/21 07:00 85 20 97 10/07/21 03:40 36.5 C 83 21 100 10/07/21 03:00 66 23 118/67 93 10/07/21 02:57 75 24 95 10/07/21 02:45 75 24 94 10/07/21 02:38 22 99 10/07/21 02:00 36.5 C 70 23 119/69 94 10/07/21 01:29 74 22 98 10/07/21 01:00 67 22 128/68 94 10/07/21 00:00 69 21 123/71 94 10/06/21 23:30 81 19 94 Coding Level of Care Code 87268 [facility] Care [facility] 3 Diagnoses Aspiration pneumonia of right lower lobe J69.0 Aspiration pneumonia type: unspecified Acute hypoxemic respiratory failure J96.01 Pleural effusion J90 Acute and chronic respiratory failure with hypercapnia J96.22 (1) Aspiration pneumonia of right lower lobe Aspiration pneumonia type: unspecified Qualified Code(s): J69.0 - Pneumonitis due to inhalation of food and vomit
[2021-10-07] MEDS ORDERED: ALBUT/IPRATROP 3MG/0.5MG NEB 3 ML VIAL NEB PRN (13:34)
--- NOTE | 2021-10-07 14:42 | Hospitalist Progress Note ---
Date of Service October 07, 2021 Assessment & Plan (1) Aspiration pneumonia of right lower lobe: Plan: Improved overnight s/p BIPAP. Now on NC O2. Cont zosyn - day #2. Cont hypertonic saline nebs, chest PT via vest twice daily, and bronchodilators prn. Consult speech therapy. Add mucinex. Appreciate pulmonary assistance. blood cx's thus far negative. (2) Acute on chronic respiratory failure with hypoxia and hypercapnia: Plan: on chronic NC O2 at the SNF. required BIPAP overnight. now back to NC O2. continue to Rx for aspiration pneumonia as above in #1. continue supportive care. (3) Seizure: Plan: Resume depakote Early in September depakote level was wnl repeat level in am (4) HLD (hyperlipidemia): Plan: Continue statin (5) HTN (hypertension): Plan: Cont metoprolol Cont lasix (6) Obstructive lung disease: Plan: cont nebs prn cont theophylline - level acceptable today (7) Diabetes: Plan: cont basal-bolus regimen adjust as needed (8) Obesity: Plan: Morbid obesity with BMI 42 (9) Dementia: Plan: continue Aricept (10) Pleural effusion: Plan: small, loculated right-sided this would argue for chronic right lung issues (aspiration) leading to the development of this defer any Rx to pulmonary (11) DVT prophylaxis: Plan: lovenox BID (12) Hydronephrosis of right kidney: Plan: seen by urology in early September MAG 3 renal scan advised - does not appear he had such f/u with urology for this testing Plan: downgrade to tele status from ICU status await speech eval Admission and Anticipated Discharge Date Admission Date: October 06, 2021 Subjective patient was weaned from BIPAP to NC this am. patient is on chronic [facility] O2 at the [facility]. overall he "feels better." denies any use of thickeners at the [facility] or problems swallowing. denies fevers overnight. coughing, but nothing coming up. ate good breakfast today. Review of Systems Review of Systems: gen - no fevers or chills CV - no chest pain pulm - coughing; during he visit he was on percussion vest GI - no pain, nausea or vomiting Physical Exam Physical Exam: gen - obese, NAD, coughing mouth - MMM, no thrush neck - no JVD heart - RRR, s1 s2, no murmur lungs - dense rales right base, left lung clear, no increased work of breathing abd - soft NT ND BS+ ext - no edema, pulses 2+ b/l Results & Data Results & Data ([facility]) Vital Signs (Past 12 Hours) Vital Signs Temp Pulse Pulse Resp BP Pulse Ox 10/07/21 12:00 36.8 C 71 24 121/84 95 10/07/21 11:29 78 22 91 10/07/21 11:00 68 23 10/07/21 10:00 78 15 100 10/07/21 09:00 74 20 108/87 95 10/07/21 08:00 36.6 C 86 20 95 10/07/21 07:13 84 84 23 99 10/07/21 07:00 85 20 97 10/07/21 03:40 36.5 C 83 21 100 10/07/21 03:00 66 23 118/67 93 10/07/21 02:57 75 24 95 10/07/21 02:45 75 24 94 Laboratory Results Laboratory Results - last 24 hr 10/07/21 10/07/21 10/07/21 04:12 07:21 09:50 POC Glucose 94 Theophylline 9 L Hepatitis C Ab Screen Neg 10/07/21 10/07/21 10/07/21 11:48 16:32 19:56 POC Glucose 89 136 H 110 H Theophylline Hepatitis C Ab Screen PG Care Time/CCT Total # of Minutes Spent Total Time Spent with Patient: Total time spent is greater than 50% in coordination of care (as documented) at patient's floor/unit and/or counseling patient: Coding Level of Care Code 17250 Subseq Hosp Care Lvl 2 Diagnoses Aspiration pneumonia of right lower lobe J69.0 Aspiration pneumonia type: unspecified Seizure R56.9 HLD (hyperlipidemia) E78.5 HTN (hypertension) I10 Obstructive lung disease J44.9 Diabetes E11.9 Obesity E66.9 Dementia F03.90 Pleural effusion J90 Acute on chronic respiratory failure with hypoxia and hypercapnia J96.21; J96.22 DVT prophylaxis Z29.9 Hydronephrosis of right kidney N13.30 (1) Aspiration pneumonia of right lower lobe Aspiration pneumonia type: unspecified Qualified Code(s): J69.0 - Pneumonitis due to inhalation of food and vomit
[2021-10-07] MEDS: INSULIN GLARGINE SOLOSTAR 100 UNITS/ML 3 ML PEN SQ SCH (20:00)
[2021-10-07] MEDS: ATORVASTATIN 40 MG TAB PO SCH (20:00)
[2021-10-07] MEDS: QUEtiapine FUMARATE 25 MG TABLET PO SCH (20:01)
[2021-10-07] MEDS: ENOXAPARIN INJ 40 MG/0.4 ML SYR SQ SCH (20:01)
[2021-10-08] MEDS: PIPERACILLIN/TAZOBACTAM 4.5 GM in DEXTROSE 5% 100 ML IV SCH ×3 (04:17→21:19)
[2021-10-08 07:58] LABS: BUN Creatinine Ratio 29.8 (10-20); Calcium 9.2 mg/dl (8.5-10.1); Creatinine Clr Calc Pharmacy 141.2 ml/min; Est GFR (African American) 111.6 ml/min; Est GFR (Non-African American) 96.3 ml/min; Magnesium 2.2 mg/dl (1.8-2.4); Phosphorus 3.4 mg/dl (2.5-4.9)
[2021-10-08] MEDS ORDERED: POTASSIUM CHLORIDE CRTAB 20 MEQ TABCR PO STA (08:11)
[2021-10-08] MEDS: INSULIN ASPART 100 UNITS/ML 3 ML PEN SC SCH ×4 (08:19→21:13)
[2021-10-08] MEDS: ENOXAPARIN INJ 40 MG/0.4 ML SYR SQ SCH ×2 (08:25→21:20)
[2021-10-08] MEDS: ASPIRIN 81 MG ECTAB PO SCH (08:25)
[2021-10-08] MEDS: DONEPEZIL HCL 5 MG TAB PO SCH (08:25)
[2021-10-08] MEDS: THEOPHYLLINE 300MG EXTENDED REL TAB PO SCH (08:26)
[2021-10-08] MEDS: FUROSEMIDE 20 MG TAB PO SCH (08:26)
[2021-10-08] MEDS: VALPROIC ACID SOLN 250 MG/5 ML UDC PO SCH ×2 (08:27→21:20)
[2021-10-08] MEDS: METOPROLOL TARTRATE 25 MG TAB PO SCH ×2 (08:27→21:21)
[2021-10-08] MEDS: PANTOprazole 40 MG TAB PO SCH (08:27)
[2021-10-08] MEDS: TERAZOSIN HCL 1 MG CAP PO SCH (08:28)
[2021-10-08] MEDS: SERTRALINE HCL 100 MG TABLET PO SCH (08:28)
[2021-10-08] MEDS: SODIUM CHLOR 7% 4 ML NEB NEB SCH ×2 (08:33→20:21)
--- NOTE | 2021-10-08 12:14 | Electrocardiogram Report ---
Test Reason : Blood Pressure : / mmHG Vent. Rate : 088 BPM Atrial Rate : 088 BPM P-R Int : 252 ms QRS Dur : 096 ms QT Int : 380 ms P-R-T Axes : 053 059 058 degrees QTc Int : 459 ms Sinus rhythm with 1st degree A-V block Otherwise normal ECG When compared with ECG of 07-OCT-2021 05:37, No significant change was found Confirmed by Bonilla Miles ([id number]) on 10/08/2021 12:14:09 PM Referred By: [facility] Confirmed By:Bonilla Miles
--- NOTE | 2021-10-08 18:18 | Hospitalist Progress Note ---
Date of Service October 08, 2021 Assessment & Plan (1) Aspiration pneumonia of right lower lobe: Plan: Improving nicely Cont zosyn - day #3. Cont hypertonic saline nebs, chest PT via vest twice daily, and bronchodilators prn. Ongoing speech therapy Continue mucinex. Appreciate pulmonary assistance. blood cx's thus far negative. (2) Acute on chronic respiratory failure with hypoxia and hypercapnia: Plan: Treat aspiration pneumonia, continue oxygen and supportive care (3) Seizure: Plan: Continue Depakote. Appears to be seizure-free. Depakote level is low, but he is seizure-free. (4) HLD (hyperlipidemia): Plan: Continue statin (5) HTN (hypertension): Plan: Cont metoprolol Cont lasix Blood pressure reasonable (6) Obstructive lung disease: Plan: cont nebs prn cont theophylline (7) Diabetes: Plan: cont basal-bolus regimen adjust as needed Glucose is overall reasonable control (8) Obesity: Plan: Morbid obesity with BMI 42 (9) Dementia: Plan: continue Aricept (10) Pleural effusion: Plan: Oxygenation improving nicely, too small to tap per pulmonary. Continue to follow periodically (11) DVT prophylaxis: Plan: lovenox BID (12) Hydronephrosis of right kidney: Plan: seen by urology in early September MAG 3 renal scan advised - does not appear he had such f/u with urology for this testing Plan: Stable for MedSurg/telemetry, PT/OT eval and treat, working towards return to SNF at [facility] Admission and Anticipated Discharge Date Admission Date: October 06, 2021 Subjective Doing surprisingly well. Breathing okay. Eating okay. No real cough or shortness of breath. Down to 4 L nasal cannula. Discussed with pulmonary/critical care. Input greatly appreciated. Review of Systems Review of Systems: All systems reviewed & are unremarkable except as noted in HPI & below Physical Exam Physical Exam: In general he is awake and alert pleasant no distress. HEENT normocephalic atraumatic mucous membranes are moist. Cardio is regular no rubs murmurs or gallops. Lungs show faint rhonchi mid right lung field otherwise clear without other rales rhonchi or wheezes good effort. Skin shows no rashes no pallor or icterus. Neuro without focal deficits. Results & Data Results & Data ([facility]) Vital Signs (Past 12 Hours) Vital Signs Temp Pulse Pulse Resp BP Pulse Ox 10/08/21 16:46 98.6 F 87 24 137/76 96 10/08/21 16:00 92 H 10/08/21 12:03 98.1 F 100 H 21 114/63 91 10/08/21 08:52 85 20 94 10/08/21 08:00 78 10/08/21 07:25 98.1 F 79 22 138/79 95 PG Care Time/CCT Total # of Minutes Spent Total Time Spent with Patient: Total time spent is greater than 50% in coordination of care (as documented) at patient's floor/unit and/or counseling patient: Coding Level of Care Code 37646 Subseq Hosp Care Lvl 2 Diagnoses Aspiration pneumonia of right lower lobe J69.0 Aspiration pneumonia type: unspecified Acute on chronic respiratory failure with hypoxia and hypercapnia J96.21; J96.22 Seizure R56.9 HLD (hyperlipidemia) E78.5 HTN (hypertension) I10 Obstructive lung disease J44.9 Diabetes E11.9 Obesity E66.9 Dementia F03.90 Pleural effusion J90 DVT prophylaxis Z29.9 Hydronephrosis of right kidney N13.30 (1) Aspiration pneumonia of right lower lobe Aspiration pneumonia type: unspecified Qualified Code(s): J69.0 - Pneumonitis due to inhalation of food and vomit
[2021-10-08] MEDS: QUEtiapine FUMARATE 25 MG TABLET PO SCH (21:20)
[2021-10-08] MEDS: ATORVASTATIN 40 MG TAB PO SCH (21:22)
[2021-10-08] MEDS: INSULIN GLARGINE SOLOSTAR 100 UNITS/ML 3 ML PEN SQ SCH (21:23)
[2021-10-09] MEDS: PIPERACILLIN/TAZOBACTAM 4.5 GM in DEXTROSE 5% 100 ML IV SCH ×2 (04:01→12:33)
[2021-10-09] MEDS: SODIUM CHLOR 7% 4 ML NEB NEB SCH (07:05)
[2021-10-09] MEDS: INSULIN ASPART 100 UNITS/ML 3 ML PEN SC SCH ×2 (07:41→11:40)
[2021-10-09 07:55] LABS: Calcium 9.3 mg/dl (8.5-10.1); Creatinine Clr Calc Pharmacy 137.5 ml/min; Est GFR (African American) 110.3 ml/min; Est GFR (Non-African American) 95.2 ml/min; Potassium 3.2 mmol/L (3.5-5.1)
[2021-10-09] MEDS ORDERED: POTASSIUM CHLORIDE CRTAB 20 MEQ TABCR PO STA (08:10)
[2021-10-09] MEDS: FUROSEMIDE 20 MG TAB PO SCH (09:13)
[2021-10-09] MEDS: ENOXAPARIN INJ 40 MG/0.4 ML SYR SQ SCH (09:13)
[2021-10-09] MEDS: THEOPHYLLINE 300MG EXTENDED REL TAB PO SCH (09:13)
[2021-10-09] MEDS: PANTOprazole 40 MG TAB PO SCH (09:13)
[2021-10-09] MEDS: VALPROIC ACID SOLN 250 MG/5 ML UDC PO SCH (09:13)
[2021-10-09] MEDS: SERTRALINE HCL 100 MG TABLET PO SCH (09:13)
[2021-10-09] MEDS: TERAZOSIN HCL 1 MG CAP PO SCH (09:13)
[2021-10-09] MEDS: DONEPEZIL HCL 5 MG TAB PO SCH (09:14)
[2021-10-09] MEDS: ASPIRIN 81 MG ECTAB PO SCH (09:14)
[2021-10-09] MEDS: METOPROLOL TARTRATE 25 MG TAB PO SCH (09:14)
--- NOTE | 2021-10-09 18:52 | Discharge Summary ---
Date of Service October 09, 2021 Admission HPI Per Admitting Provider [id number] YOM with past medical history of: CHF, COPD, smoker, Encephalopathy, Dementia, DMII on insulin, depression , seizure history. Patient tis a resident at [facility] where he has been for the past 4-5 months, following admission for COPD exacerbation with complicating pneumonia in the summer. Patient was brought in today for hypoxia and difficulty breathing. He had a CT scan of the chest performed which reveals Fluid/debris fills the right lower lobe airways, and there is consolidation throughout the right lower lobe which is almost completely collapsed with airway consolidation. Patient was hypoxic and tachypneic on arrival and was placed on HFNC at 40L and 100% FIo2, with SPo2 88- 92%. Patient increase in Spo2 with sitting up but stilly hypoxic and dyspneic with movement. Will admit to ICU for aggressive chest PT and likely may need intubation to perform bronchoscopy to clear out his airways. Case discussed with ICU. Thank you for your assistance. Will continue with Zosyn 3.375 GM IV q8 hours. BiPAP hypertonic and vest percussion therapy with flutter valve QID. Unsure of vaccination status, but COVID test on admission is: NEGATIVE Principal Diagnosis Pneumoniaimproving Discharge Exam Sleepy, awakens, but a bit drowsywhen he sleeping he has the appearance of a degree of sleep apnea. No distress. HEENT normocephalic atraumatic mucous membranes moist. Cardio is regular. Lungs are overall clear to auscultation bilaterally without much of any rales rhonchi or wheezesmay be faint rhonchus right midlung normal spontaneous effort no accessory muscle use. No focal neuro deficits. Discharge Data Allergies Allergy/AdvReac Type Severity Reaction Status Date / Time ketorolac [From Toradol] Allergy Unknown Unknown Verified 10/06/21 14:53 Consultations 10/06/21 14:37 ED Decision to Admit Stat 10/06/21 15:13 Consult Rn Advanced Routine Ordered Studies 10/06/21 12:53 CT angio chest PE protocol Stat Hospital Course (1) Aspiration pneumonia of right lower lobe: Improving nicely Was initially treated with Zosynappears to be improving, is chronically on oxygen, now appears overall stable. -Transition to p.o. Augmentin to complete a course of therapy -Ongoing speech evaluation as an outpatient at SNF -Stable for return to SNF (2) Acute on chronic respiratory failure with hypoxia and hypercapnia: Treating pneumoniachronic lung disease is a bit more ill-defined. Would definitely benefit from sleep study, PFTs, and outpatient pulmonary follow- upalmost certainly appears to have sleep apnea, hypoventilation may also be a degree of weakness, and/or obesity hypoventilation, or COPD. For now continue home regimenbut would ask that he has outpatient sleep study, PFTs, pulmonary referral. (3) Seizure: Continue Depakote. Appears to be seizure-free. Depakote level is low, but he is seizure-free. (4) HLD (hyperlipidemia): Continue statin (5) HTN (hypertension): Cont metoprolol Cont lasix Blood pressure reasonable overall (6) Obstructive lung disease: See abovesleep study, PFTs, pulmonary referral cont theophylline for now (7) Diabetes: Home on outpatient regimen (8) Obesity: Morbid obesity with BMI 42 (9) Dementia: continue Aricept (10) Pleural effusion: Oxygenation improving nicely, too small to tap per pulmonary. Continue to follow periodically as an outpatient (11) DVT prophylaxis: lovenox BID utilized during his stay (12) Hydronephrosis of right kidney: seen by urology in early September MAG 3 renal scan advised - does not appear he had such f/u with urology for this testing Appears stable for return to SNF, ongoing antibiotics, outpatient pulmonary evaluation. Basic metabolic panel and CBC in about 48 hours. Total Time Total Time Spent Total Time Spent (In Minutes): Less than 30 Discharge Plan Discharge Items Patient Disposition: Transfer [facility] Reason For Visit: HYPOXIA Discharge Diagnosis: pneumonia/aspiration Activity: Resume your previous activity Non-emergency contact: Primary Care Provider Call non-emergency contact if: you have any medication questions Follow-up/Referrals: Mera Tamayo [Primary Care Provider] - Diet: Regular Addtl Attending Provider Instructions: Pneumoniaimproving, needing generally 4 to 5 L of oxygen at this time, wean down as possible, keeping pulse ox 90% or higher. -There was concern on aspirationwas seen by speech therapy hereand they were going to proceed with videofluoroscopy, which has not been able to be done due to the weekend. That said, he has done well grossly at the bedside eating and drinking here, with no overt signs or symptoms of aspiration. Would recommend that he have ongoing follow-up with speech therapy at [facility] -Has been on Zosyn for about 2 days here, will transition to Augmentin for another 8 days to complete 10 days of antibiotic therapy. Obviously depending on his clinical progress this regimen can be modified Appears to have obstructive sleep apnea on bedside evaluation, if he has not had a sleep study, would recommend getting 1 done as soon as is feasible, as he likely would benefit from CPAP/BiPAP at bedtime Obstructive lung diseaseuncertain whether it is COPD, obesity hypoventilation, deconditioning, a mix of all of the above, or other. Between this and his pleural effusion, I would recommend outpatient pulmonary follow-up in the next 1 to 2 weeks. Continue home regimen for now. CBC, BMP 10/11 then periodically thereafter Pending Studies at Discharge: No Stand-Alone Forms: My [facility] Skilled Items Patient informed of condition?: Yes DNR: No Discharge Level of Care: Skilled Communicable Disease: No Discharge Prognosis: Improving Lines: None Urinary Catheter: No Medications and DC Order Prescriptions: New amoxicillin-pot clavulanate [Augmentin] 875-125 mg tablet 1 tab PO BID Qty: 16 RF: 0 Continued atorvastatin 40 mg Tablet 40 mg PO HS RF: 0 donepezil [Aricept] 5 mg Tablet 5 mg PO DAILY RF: 0 divalproex 250 mg Tablet,Delayed Release (Dr/Ec) 250 mg PO BID RF: 0 aspirin 81 mg Tablet,Chewable 81 mg PO DAILY RF: 0 cholecalciferol (vitamin D3) 25 mcg (1,000 unit) Tablet 25 mcg PO DAILY RF: 0 acetazolamide 500 mg Capsule, Extended Release 500 mg PO DAILY RF: 0 sertraline 100 mg Tablet 100 mg PO DAILY RF: 0 Lactobacillus acidophilus Capsule 0 mmu cells PO DAILY Qty: 0 RF: 0 quetiapine [Seroquel] 50 mg Tablet 50 mg PO HS RF: 0 guaifenesin 600 mg Tablet Extended Release 12hr 600 mg PO Q12H RF: 0 pediatric multivitamin Tablet,Chewable 1 tab PO DAILY RF: 0 Lantus Solostar U-100 Insulin 100 unit/mL (3 mL) Insulin Pen 35 unit SUBCUT HS RF: 0 potassium chloride 20 mEq Tablet Extended Release 20 meq PO WM RF: 0 theophylline 600 mg Tablet Extended Release 24 Hr 600 mg PO DAILY RF: 0 metoprolol tartrate 25 mg Tablet 12.5 mg PO BID RF: 0 acetaminophen 325 mg Tablet 650 mg PO Q4 MDD 3g PRN (Reason: Fever Or Pain) RF: 0 albuterol sulfate 90 mcg/actuation Hfa Aerosol Inhaler 1 puff INHALATION Q4 PRN (Reason: Shortness Of Breath) RF: 0 Humulin R Regular U-100 Insuln 100 unit/mL Solution 1 sliding scale dose SUBCUT ACHS RF: 0 furosemide 20 mg Tablet 20 mg PO QAM Qty: 30 RF: 0 terazosin 2 mg capsule 2 mg PO DAILY Qty: 30 RF: 0 Discharge Orders: Discharge Order (Routine); Ordered 10/09/21 Ordered By: Harshal Cyr Admission Data Admit Date/Time: 10/06/21 15:13 Attending Provider: Harshal Cyr Admit Provider: Babar Hummel Primary Care Provider: Mera Tamayo Other Providers: Silvano Reveles ; Babar Hummel ; Anil Davila Other Interventions: Discharge Summary Assessment (RN) Last Done: 10/09/21 14:33 Coding Level of Care Code D/C DAY MANAGEMENT <30 MINS Diagnoses Aspiration pneumonia of right lower lobe J69.0 Aspiration pneumonia type: unspecified Acute on chronic respiratory failure with hypoxia and hypercapnia J96.21; J96.22 Seizure R56.9 HLD (hyperlipidemia) E78.5 HTN (hypertension) I10 Obstructive lung disease J44.9 Diabetes E11.9 Obesity E66.9 Dementia F03.90 Pleural effusion J90 DVT prophylaxis Z29.9 Hydronephrosis of right kidney N13.30
== END 2021-10-09 15:06 | DRG 177 ==
LOC: ED 09:56 → SUATTDRO 15:13 → 1E 15:13

== ENCOUNTER 2022-01-15 10:29 | Inpatient (IN) ==
[2022-01-15] MEDS ORDERED: ALBUTEROL 0.083% NEBU SOLN 3 ML VIAL NEB STA (10:39)
--- NOTE | 2022-01-15 10:46 | Emergency Department Note ---
Impression & Plan Respiratory failure, Hypoxia, AMS (altered mental status), Pneumonia ED Provider Note NAME: TREVA PERKINS AGE: 71 SEX: M : 1950 ARRIVES VIA: Ambulance INFORMANT: Patient ED PROVIDER(S): Harshal Lorenzana DO CHIEF COMPLAINT: Altered mental status hypoxia HPI: Patient is a 71-year-old male with past medical history of pleural effusion, aspiration pneumonitis, CKD, seizures, hyperlipidemia, COPD hypertension, diabetes, and dementia the presents the ER for altered mental status. He was found to be hypoxic at 60 to 70% on room air at heart side. He was brought in by EMS on a nonrebreather. Patient denies any headache or chest pain or shortness of breath. He denies any belly pain nausea vomiting or diarrhea but history is very limited secondary to mentation has he is able to say his name and deny/state no when asked questions. ROS: Review of systems limited secondary to mentation PAST MEDICAL HISTORY:See Below PAST SURGICAL HISTORY:See Below FAMILY HISTORY:See Below SOCIAL HISTORY:See Below HOME MEDICATIONS:See Below ALLERGIES:See Below VITALS:See Below PHYSICAL EXAMINATION: GENERAL: Sitting up in bed, opens eyes to painful stimuli, significant distress, pale and ill-appearing EYE EXAM: normal conjunctiva. OROPHARYNX:mucous membranes are dry NECK: supple, no nuchal rigidity, no adenopathy, non-tender LUNGS: Diminished bilaterally. Normal chest wall mechanics HEART: no murmurs, S1 normal and S2 normal ABDOMEN: abdomen soft, non-tender, normo-active bowel sounds, no masses, no rebound or guarding. UPPER EXTREMITIES: upper extremities are grossly normal. LOWER EXTREMITIES: No pitting edema. NEURO EXAM: Sitting up in bed oriented to person but very somnolent moving upper extremities, cranial nerves II-XII grossly intact, moving upper extremities with no focal deficit MEDICAL DECISION MAKING: Patient is a 71-year-old male brought in by EMS for hypoxia. He was switched to BiPAP upon arrival. CO2 was obtained with significantly elevated at 130. He was able to be awoken with sternal rub initially upon arrival and this deteriorated throughout his stay. IV was established blood work is obtained. Labs show no significant leukocytosis and anemia 11.6. INR was unremarkable. VBG with a pH of 7.13 and a CO2 of 134. BMP with an elevated CO2. Glucose slightly elevated 141. LFTs were unremarkable. T bili was negative. Troponin negative. Covid was negative. CT head was negative. Angio of the chest shows questionable aspiration pneumonia. After discussion with at bedside we elected to intubate him as he was a full code and he was no longer protecting his airway and was completely unresponsive. He was placed on a propofol drip. ABG shows a CO2 of trending down in the 70s as well as a pH which is improving. Patient was given IV Zosyn to cover for possible aspiration pneumonia. D iscussed with Dr. Duarte from the critical care team. Patient was admitted under Dr. Fung service. Triage Nursing notes reviewed. Limited review of prior medical records performed Vital Signs: reviewed and remarkable for no significant abnormalities Differential diagnosis: Differential diagnoses includes but is not limited to pneumonia, bronchitis, COPD/Asthma exacerbation, pneumothorax, pulmonary embolism, congestive heart failure, acute coronary syndrome ER treatment provided: See below Diagnostics interpreted by me: ECG: Sinus tachycardia rate of 116 PVC Normal axis QTC [address] wave changes Cardiac Monitoring: An order was placed for continuous cardiac monitoring. The monitor shows a rate of 101 with sinus rhythm. Laboratory studies: As stated above and show below. Imaging studies: CT angio the chest shows infiltrates Chest x-ray shows cephalization as well as ET tube placement and effusion Consultation(s): Discussed with the fisheries management biologist Dr. Duarte as stated above Discussed with [facility] service as stated above Procedures: EM PROCEDURE NOTE - Endotracheal Intubation PROCEDURE NOTE: Informed consent was not obtained by the patient. Verify Correct Patient: yes Procedure: Endotracheal intubation Indication: Respiratory failure The procedure was done emergently. Description of the Procedure: The patient was seen and properly identified. The patient was pre-oxygenated and intubated after rapid sequence induction with meds: Succinylcholine and ketamine. Intubation was performed using the glide scope and a 7.5 cuffed endotracheal tube. The tube was visualized going through the cords and secured with the 24cm steve at the lips. The patient had good bilateral breath sounds in the axillae with good chest rise. Proper ET tube placement was confirmed by end tidal CO2 detector. The patient tolerated the procedure well. Critical Care: I have personally spent 72 minutes of critical care time in the direct management of this patient. This includes bedside care, interpretation of diagnostic studies, and testing, discussion with consultants, patient, and family members, and other required patient management activities. This 72 minutes is in excess of all separately billable procedures. Past Med/Surg History Medical History CHF (congestive heart failure) Dementia Diabetes HLD (hyperlipidemia) HTN (hypertension) Hydronephrosis of right kidney No pertinent family history Obesity Obstructive lung disease Smoker Surgical History No pertinent past surgical history Social History Smoking Status: Former smoker Second Hand Exposure: No; Hx Alcohol Use: No Hx Substance Use: No Preferred Language: Jamaican Communication Ability: Impaired Stunner Animal Required: No Beliefs That Will Affect Care: None marital status: Current Living Situation: Long-Term How many Children do You have: 2 Feels Safe at Home: Yes Assistive Devices: None Allergies Allergies Allergy/AdvReac Type Severity Reaction Status Date / Time ketorolac [From Toradol] Allergy Unknown Unknown Verified 01/15/22 12:21 Home Meds Home Medications Medication Instructions Recorded Confirmed Lactobacillus acidophilus 0 mmu cells PO QAM #0 07/31/21 01/15/22 acetaminophen 325 mg tablet 650 mg PO Q4 PRN MDD 3g 07/31/21 01/15/22 acetazolamide 500 mg 500 mg PO QAM 07/31/21 01/15/22 capsule,extended release aspirin 81 mg chewable tablet 81 mg PO QAM 07/31/21 01/15/22 atorvastatin 40 mg tablet 40 mg PO 07/31/21 01/15/22 cholecalciferol (vitamin D3) 25 25 mcg PO QAM 07/31/21 01/15/22 mcg (1,000 unit) tablet divalproex 250 mg tablet,delayed 250 mg PO BID 07/31/21 01/15/22 release donepezil 5 mg tablet (Aricept) 5 mg PO QAM 07/31/21 01/15/22 guaifenesin 600 mg tablet, 600 mg PO Q12H 07/31/21 01/15/22 extended release 12 hr insulin glargine 100 unit/mL (3 35 unit SUBCUT 07/31/21 01/15/22 mL) subcutaneous pen (Lantus Solostar U-100 Insulin) insulin regular human 100 unit/mL 1 sliding scale dose SUBCUT ACHS 07/31/21 01/15/22 injection solution (Humulin R Regular U-100 Insulin) metoprolol tartrate 25 mg tablet 12.5 mg PO BID 07/31/21 01/15/22 pediatric multivitamin 1 tab PO QAM 07/31/21 01/15/22 potassium chloride 20 mEq 20 meq PO WM 07/31/21 01/15/22 tablet,extended release quetiapine 50 mg tablet (Seroquel) 50 mg PO BID 07/31/21 01/15/22 sertraline 100 mg tablet 100 mg PO QAM 07/31/21 01/15/22 theophylline 600 mg 600 mg PO QAM 07/31/21 01/15/22 tablet,extended release 24 hr ipratropium 0.5 mg-albuterol 3 mg 3 ml INHALATION Q4H 01/15/22 01/15/22 (2.5 mg base)/3 mL nebulization soln terazosin 2 mg capsule 2 mg PO QAM 01/15/22 01/15/22 Previous Rx's Medication Instructions Recorded furosemide 20 mg tablet 20 mg PO QAM #30 tab 08/19/21 Results & Data (ED) Vital Signs Vital Signs - 24 hr 01/15/22 10:19 01/15/22 10:37 01/15/22 10:45 Temperature Temperature Source Pulse Rate 113 H Pulse Rate [Apical] 113 H Pulse Rhythm Pulse Strength Respiratory Rate 18 Respiratory Effort / Characteristics Spontaneous Labored Respiratory Depth Normal Respiratory Pattern Regular Blood Pressure Blood Pressure [Right Arm] Blood Pressure Mean Blood Pressure Mean [Right Arm] Blood Pressure Position Blood Pressure Position [Right Arm] Pulse Oximetry 55 L 95 92 Oxygen Delivery Method BiPAP BiPAP Oxygen Flow Rate 0 Fraction of Inspired Oxygen 70 Sepsis Recent Fever Within 48 Hours Sepsis New/Unexplained Change in Mental Status Sepsis Action Taken by Nursing Oxygen Flow Rate - Titration 15 Pulse Oximetry Post Tiitration 90 01/15/22 10:48 01/15/22 10:53 01/15/22 12:00 Temperature 36.8 C Temperature Source Oral Pulse Rate 115 H Pulse Rate [Apical] Pulse Rhythm Regular Pulse Strength Normal Respiratory Rate 26 H Respiratory Effort / Characteristics Labored Labored Respiratory Depth Shallow Shallow Respiratory Pattern Regular Blood Pressure 142/77 H Blood Pressure [Right Arm] Blood Pressure Mean 98 Blood Pressure Mean [Right Arm] Blood Pressure Position Sitting Blood Pressure Position [Right Arm] Pulse Oximetry 55 L Oxygen Delivery Method Room Air Oxygen Flow Rate 24 Fraction of Inspired Oxygen 60 Sepsis Recent Fever Within 48 Hours No Sepsis New/Unexplained Change in Mental Status Yes Sepsis Action Taken by Nursing Physician Notified Oxygen Flow Rate - Titration Pulse Oximetry Post Tiitration 01/15/22 12:17 Temperature Temperature Source Pulse Rate Pulse Rate [Apical] 115 H Pulse Rhythm Pulse Strength Respiratory Rate 26 H Respiratory Effort / Characteristics Respiratory Depth Respiratory Pattern Blood Pressure Blood Pressure [Right Arm] 167/94 H Blood Pressure Mean Blood Pressure Mean [Right Arm] 118 Blood Pressure Position Blood Pressure Position [Right Arm] Lying Pulse Oximetry 96 Oxygen Delivery Method BiPAP Oxygen Flow Rate Fraction of Inspired Oxygen Sepsis Recent Fever Within 48 Hours Sepsis New/Unexplained Change in Mental Status Sepsis Action Taken by Nursing Oxygen Flow Rate - Titration Pulse Oximetry Post Tiitration Laboratory Data Result diagrams: 01/15/22 10:35 01/15/22 10:35 Lab Results 01/15/22 01/15/22 01/15/22 Range/Units 10:35 10:35 10:35 WBC 10.79 (4.8-10.8) K/uL RBC 4.39 L (4.7-6.1) M/uL Hgb 11.6 L (14.0-18.0) g/dL POC Hgb (14.0-18.0) g/dl Hct 43.2 (42-52) % POC Hct (42-52) % MCV 98.4 (80-100) fL MCH 26.4 (25-34) pg MCHC 26.9 L (32-36) g/dL RDW Std Deviation 60.2 H (36.4-46.3) fL RDW Coeff of Raquel 17.0 H (11.5-14.5) % Plt Count 260 (130-400) K/uL MPV 11.5 H (7.4-10.4) fL Immature Gran % (Auto) 1.4 % Neut % (Auto) 85.2 % Lymph % (Auto) 6.8 % [place] % (Auto) 6.4 % Eos % (Auto) 0.1 % Baso % (Auto) 0.1 % Neut # (Auto) 9.20 H (1.4-6.5) K/uL Lymph # (Auto) 0.73 L (1.2-3.4) K/uL [place] # (Auto) 0.69 H (0.11-0.59) K/uL Eos # (Auto) 0.01 (0-0.5) K/uL Baso # (Auto) 0.01 (0-0.2) K/uL Immature Gran # (Auto) 0.15 H (0.00-0.02) K/uL PT 11.6 (9.0-12.0) Seconds INR 1.1 (0.9-1.1) APTT 30.6 (21.0-31.0) Seconds PTT Ratio 1.1 VBG pH (7.36-7.41) VBG pCO2 (38-50) mmHg VBG pO2 mmHg VBG HCO3 mmol/L VBG O2 Saturation % VBG Base Excess mEq/L Barometric Pressure mm/Hg POC Sodium (135-144) mmol/L Sodium 144 (136-145) mmol/L POC Potassium (3.3-5.0) mmol/L Potassium 3.9 (3.5-5.1) mmol/L POC Chloride (101-112) mmol/L Chloride 97 L (98-107) mmol/L Carbon Dioxide > 45 H* (21-32) mmol/L POC Total CO2 (24-31) mmol/L Anion Gap TNP POC Anion Gap (16-25) mmol/L POC BUN (7-18) mg/dl BUN 14 (6-23) mg/dl Creatinine 0.43 L (0.6-1.4) mg/dl POC Creatinine (0.6-1.3) mg/dl Est Cr Clr Drug Dosing 213.1 ml/min Est GFR ( Amer) 136.4 ml/min Est GFR (Non-Af Amer) 117.6 ml/min BUN/Creatinine Ratio 32.6 H (10-20) Glucose 141 H (70-99(Fasting)) mg/dl POC Glucose (other) (70-99) mg/dl Lactate (0.4-2.0) mmol/L Calcium 9.7 (8.5-10.1) mg/dl POC Ioniz Calcium Gurjit (1.12-1.32) mmol/l Magnesium 2.0 (1.7-2.4) mg/dl Total Bilirubin 0.3 (0.2-1.0) mg/dl AST 9 L (13-39) U/L ALT 3 L (7-52) U/L Alkaline Phosphatase 64 (34-104) U/L Troponin I < 0.03 (0-0.04) ng/ml B-Natriuretic Peptide (0-100) pg/ml Total Protein 7.6 (6.0-8.3) gm/dl Albumin 3.3 L (3.4-5.0) gm/dl Globulin 4.3 H (2.5-4.0) gm/dl Albumin/Globulin Ratio 0.8 L (0.9-2) SARS-CoV-2, RNA, NAAT (NEGATIVE) 01/15/22 01/15/22 01/15/22 Range/Units 10:45 10:54 10:54 WBC (4.8-10.8) K/uL RBC (4.7-6.1) M/uL Hgb (14.0-18.0) g/dL POC Hgb (14.0-18.0) g/dl Hct (42-52) % POC Hct (42-52) % MCV (80-100) fL MCH (25-34) pg MCHC (32-36) g/dL RDW Std Deviation (36.4-46.3) fL RDW Coeff of Raquel (11.5-14.5) % Plt Count (130-400) K/uL MPV (7.4-10.4) fL Immature Gran % (Auto) % Neut % (Auto) % Lymph % (Auto) % [place] % (Auto) % Eos % (Auto) % Baso % (Auto) % Neut # (Auto) (1.4-6.5) K/uL Lymph # (Auto) (1.2-3.4) K/uL [place] # (Auto) (0.11-0.59) K/uL Eos # (Auto) (0-0.5) K/uL Baso # (Auto) (0-0.2) K/uL Immature Gran # (Auto) (0.00-0.02) K/uL PT (9.0-12.0) Seconds INR (0.9-1.1) APTT (21.0-31.0) Seconds PTT Ratio VBG pH (7.36-7.41) VBG pCO2 (38-50) mmHg VBG pO2 mmHg VBG HCO3 mmol/L VBG O2 Saturation % VBG Base Excess mEq/L Barometric Pressure mm/Hg POC Sodium (135-144) mmol/L Sodium (136-145) mmol/L POC Potassium (3.3-5.0) mmol/L Potassium (3.5-5.1) mmol/L POC Chloride (101-112) mmol/L Chloride (98-107) mmol/L Carbon Dioxide (21-32) mmol/L POC Total CO2 (24-31) mmol/L Anion Gap POC Anion Gap (16-25) mmol/L POC BUN (7-18) mg/dl BUN (6-23) mg/dl Creatinine (0.6-1.4) mg/dl POC Creatinine (0.6-1.3) mg/dl Est Cr Clr Drug Dosing ml/min Est GFR ( Amer) ml/min Est GFR (Non-Af Amer) ml/min BUN/Creatinine Ratio (10-20) Glucose (70-99(Fasting)) mg/dl POC Glucose (other) (70-99) mg/dl Lactate 0.7 (0.4-2.0) mmol/L Calcium (8.5-10.1) mg/dl POC Ioniz Calcium Gurjit (1.12-1.32) mmol/l Magnesium (1.7-2.4) mg/dl Total Bilirubin (0.2-1.0) mg/dl AST (13-39) U/L ALT (7-52) U/L Alkaline Phosphatase (34-104) U/L Troponin I (0-0.04) ng/ml B-Natriuretic Peptide 170 H (0-100) pg/ml Total Protein (6.0-8.3) gm/dl Albumin (3.4-5.0) gm/dl Globulin (2.5-4.0) gm/dl Albumin/Globulin Ratio (0.9-2) SARS-CoV-2, RNA, NAAT NEGATIVE (NEGATIVE) 01/15/22 01/15/22 Range/Units 10:54 11:03 WBC (4.8-10.8) K/uL RBC (4.7-6.1) M/uL Hgb (14.0-18.0) g/dL POC Hgb 14.3 (14.0-18.0) g/dl Hct (42-52) % POC Hct 42 (42-52) % MCV (80-100) fL MCH (25-34) pg MCHC (32-36) g/dL RDW Std Deviation (36.4-46.3) fL RDW Coeff of Raquel (11.5-14.5) % Plt Count (130-400) K/uL MPV (7.4-10.4) fL Immature Gran % (Auto) % Neut % (Auto) % Lymph % (Auto) % [place] % (Auto) % Eos % (Auto) % Baso % (Auto) % Neut # (Auto) (1.4-6.5) K/uL Lymph # (Auto) (1.2-3.4) K/uL [place] # (Auto) (0.11-0.59) K/uL Eos # (Auto) (0-0.5) K/uL Baso # (Auto) (0-0.2) K/uL Immature Gran # (Auto) (0.00-0.02) K/uL PT (9.0-12.0) Seconds INR (0.9-1.1) APTT (21.0-31.0) Seconds PTT Ratio VBG pH 7.13 L (7.36-7.41) VBG pCO2 134 H (38-50) mmHg VBG pO2 51 mmHg VBG HCO3 44 mmol/L VBG O2 Saturation 78.8 % VBG Base Excess 9.6 mEq/L Barometric Pressure 736.2 mm/Hg POC Sodium 144 (135-144) mmol/L Sodium (136-145) mmol/L POC Potassium 3.7 (3.3-5.0) mmol/L Potassium (3.5-5.1) mmol/L POC Chloride 94 L (101-112) mmol/L Chloride (98-107) mmol/L Carbon Dioxide (21-32) mmol/L POC Total CO2 > 40 H* (24-31) mmol/L Anion Gap POC Anion Gap 14.0 L (16-25) mmol/L POC BUN 15 (7-18) mg/dl BUN (6-23) mg/dl Creatinine (0.6-1.4) mg/dl POC Creatinine 0.7 (0.6-1.3) mg/dl Est Cr Clr Drug Dosing ml/min Est GFR ( Amer) ml/min Est GFR (Non-Af Amer) ml/min BUN/Creatinine Ratio (10-20) Glucose (70-99(Fasting)) mg/dl POC Glucose (other) 157 H (70-99) mg/dl Lactate (0.4-2.0) mmol/L Calcium (8.5-10.1) mg/dl POC Ioniz Calcium Gurjit 1.27 (1.12-1.32) mmol/l Magnesium (1.7-2.4) mg/dl Total Bilirubin (0.2-1.0) mg/dl AST (13-39) U/L ALT (7-52) U/L Alkaline Phosphatase (34-104) U/L Troponin I (0-0.04) ng/ml B-Natriuretic Peptide (0-100) pg/ml Total Protein (6.0-8.3) gm/dl Albumin (3.4-5.0) gm/dl Globulin (2.5-4.0) gm/dl Albumin/Globulin Ratio (0.9-2) SARS-CoV-2, RNA, NAAT (NEGATIVE) Administered Medications Propofol (Diprivan) 1,000 mg in 100 mls @ 15.984 mls/hr IV .Q6H16M [facility]; Protocol Stop: 01/18/22 12:44 Last Admin: 01/15/22 12:45 Dose: 20 mcg/kg/min, 16 mls/hr Documented by: [id number] Cosigned by: [id number] Discontinued Medications Albuterol (Albuterol 0.083% Nebu Soln 3 Ml Vial) 10 mg NEB NOW STA; Protocol Stop: 01/15/22 10:40 Last Admin: 01/15/22 11:23 Dose: 10 mg Documented by: [id number] Piperacillin Sod/Tazobactam Sod (Zosyn) 4.5 gm in 120 mls @ 240 mls/hr IV NOW ONE Stop: 01/15/22 11:25 Last Admin: 01/15/22 12:17 Dose: 240 mls/hr Documented by: [id number] Ioversol (Optiray 320 125ml) 119 ml IV ONCE ONE Stop: 01/15/22 12:11 Last Admin: 01/15/22 12:11 Dose: 119 ml Documented by: [id number] Methylprednisolone (Methylprednisolone 40 Mg/Ml Vial) 40 mg IV NOW STA Stop: 01/15/22 10:40 Last Admin: 01/15/22 10:44 Dose: 40 mg Documented by: [id number] Miscellaneous (Rapid Sequence Induction Bag) Confirm Administered Dose 1 ea .ROUTE .STK-MED ONE Stop: 01/15/22 12:22 Last Admin: 01/15/22 12:48 Dose: 1 ea Documented by: [id number] Propofol (Propofol Iv Emulsion 10 Mg/Ml 100 Ml Vial) Confirm Administered Dose 1,000 mg IV .STK-MED ONE Stop: 01/15/22 12:39 Last Admin: 01/15/22 12:48 Dose: Not Given Documented by: [id number] Imaging Data Radiologist's Impression: Chest X-Ray 01/15/22 10:37 XR chest 1V portable HISTORY: 71 years-old Male SEPSIS acute sepsis COMPARISON: Chest radiograph 10/07/2021 TECHNIQUE: Portable AP view of the chest FINDINGS: Cardiac silhouette is enlarged. Small layering pleural effusions with mild bibasilar opacities. Pulmonary vascular congestion with interstitial coarsening. No pneumothorax. Degenerative changes of the shoulders and spine. IMPRESSION: 1. Cardiomegaly with pulmonary edema. 2. Small layering pleural effusions with right greater than left bibasilar opacities. ACT 112: Negative or not required by law. The above report was generated using voice recognition software. It may contain grammatical, syntax or spelling errors. Electronically signed by: Cayetnao Puckett M.D. 01/15/2022 10:52 AM Chest CTA 01/15/22 10:54 CT angio chest PE protocol CT DOSE: 1428.29 mGy.cm HISTORY: 71 years-old Male with PE. Acute shortness of breath with altered mental status TECHNIQUE: Multiple CTA images of the chest were obtained after the intravenous administration of 119 ml Optiray. Coronal and sagittal MIPS were obtained from the axial data set and were submitted for review. All measurements were obtained according to NASCET criteria. A dose lowering technique was utilized adhering to the principles of ALARA. COMPARISON: Chest radiograph of same day, CTA chest 10/06/2021 FINDINGS: CTA: Mildly moderate cardiac enlargement. Trace pericardial effusion. Moderate coronary artery calcifications. No thoracic aortic aneurysm or dissection. There is patency of the imaged great vessels. Mild descending thoracic aortic tortuosity. Dilated pulmonary artery suggests pulmonary arterial hypertension. CT CHEST: No thyroid nodules. Mediastinal adenopathy redemonstrated. Index right paratracheal lymph node measures 2.3 x 1.6 cm 0.5 x 2.1 cm. A 2.1 x 1.5 cm lymph node on image 213 previously measured 2.0 x 1.7 cm. Mild right hilar adenopathy is likely stable. Trace left and small right pleural effusions. No pneumothorax. Emphysema. Intralobular septal with bronchial wall thickening. Tracheobronchial secretions with mucous plugging most pronounced within the right lung base. There is consolidation with volume loss of the right lower lobe. Patchy groundglass and consolidative opacities are noted within the right greater than left upper lobes. Linear left basilar opacities favor atelectasis. The spleen and liver appear enlarged. There is suggested hepatic steatosis. Gynecomastia. Degenerative changes of the shoulders and spine. IMPRESSION: 1. Cardiomegaly with emphysema and suggestion of mild pulmonary edema. No pulmonary emboli. 2. Trace left and small right pleural effusions. 3. Tracheobronchial secretions with mucous plugging most pronounced within the right lower lobe. Patchy opacities, greatest throughout the right lung with dense consolidation and atelectasis of the right lower lobe. Findings are suspicious for aspiration pneumonia with right lower lobe mucous plug. 4. Mediastinal adenopathy, similar to mildly improved from prior. 5. Pulmonary arterial hypertension ACT 112: Negative or not required by law. The above report was generated using voice recognition software. It may contain grammatical, syntax or spelling errors. Electronically signed by: Cayetano Puckett M.D. 01/15/2022 12:[address] 01/15/22 11:11 CT head/brain wo con CLINICAL HISTORY: 71 years-old Male with ams. Acutely altered mental status TECHNIQUE: Multiple axial CT images of the head were obtained without contrast. A dose lowering technique was utilized adhering to the principles of ALARA. COMPARISON: None. FINDINGS: No acute intracranial hemorrhage, midline shift, intracranial mass, hydrocephalus, territorial ischemia or abnormal extra-axial collection. Minimal involutional changes. Mild white matter hypodensities suggest chronic microvascular ischemic disease. The calvarium is intact. The paranasal sinuses, mastoid air cells, and middle ear cavities are clear. IMPRESSION: No acute intracranial abnormality. ACT 112: Negative or not required by law. The above report was generated using voice recognition software. It may contain grammatical, syntax or spelling errors. Electronically signed by: Cayetano Puckett M.D. 01/15/2022 12:17 PM Chest X-Ray 01/15/22 12:32 XR chest 1V portable HISTORY: 71 years-old Male ett acute respiratory failure COMPARISON: Chest radiograph and CTA chest studies of same day TECHNIQUE: Portable AP view of the chest FINDINGS: Cardiac silhouette is enlarged. Status post placement of an endotracheal tube, distal tip terminating 4.6 cm superior to the keila. Trace left and small right pleural effusions with right lung base airspace opacities and volume loss. De generative changes of the shoulders and spine. No pneumothorax. Emphysema. Suggestion of mild pulmonary edema. Bones appear grossly intact. IMPRESSION: 1. Status post placement of an endotracheal tube, distal tip terminating 4.6 cm superior to the keila. 2. Trace left and small right pleural effusions. 3. Airspace opacities of the right lung redemonstrated. 4. Cardiomegaly with mild pulmonary edema. ACT 112: Negative or not required by law. The above report was generated using voice recognition software. It may contain grammatical, syntax or spelling errors. Electronically signed by: Cayetano Puckett M.D. 01/15/2022 12:51 PM Discharge Plan Visit Data Chief Complaint: Shortness of Breath/Dyspnea ED Provider: Harshal Lorenzana Discharge Problem: Respiratory failure, Hypoxia, AMS (altered mental status), Pneumonia Forms Stand Alone Forms: [email or web address] Prescriptions Prescriptions: No Action ipratropium-albuterol 0.5 mg-3 mg(2.5 mg base)/3 mL Solution For Nebulization 3 ml INHALATION Q4H RF: 0 terazosin 2 mg capsule 2 mg PO QAM RF: 0 atorvastatin 40 mg Tablet 40 mg PO HS RF: 0 donepezil [Aricept] 5 mg Tablet 5 mg PO QAM RF: 0 divalproex 250 mg Tablet,Delayed Release (Dr/Ec) 250 mg PO BID RF: 0 aspirin 81 mg Tablet,Chewable 81 mg PO QAM RF: 0 cholecalciferol (vitamin D3) 25 mcg (1,000 unit) Tablet 25 mcg PO QAM RF: 0 acetazolamide 500 mg Capsule, Extended Release 500 mg PO QAM RF: 0 sertraline 100 mg Tablet 100 mg PO QAM RF: 0 Lactobacillus acidophilus Capsule 0 mmu cells PO QAM Qty: 0 RF: 0 quetiapine [Seroquel] 50 mg Tablet 50 mg PO BID RF: 0 guaifenesin 600 mg Tablet Extended Release 12hr 600 mg PO Q12H RF: 0 pediatric multivitamin Tablet,Chewable 1 tab PO QAM RF: 0 Lantus Solostar U-100 Insulin 100 unit/mL (3 mL) Insulin Pen 35 unit SUBCUT HS RF: 0 potassium chloride 20 mEq Tablet Extended Release 20 meq PO WM RF: 0 theophylline 600 mg Tablet Extended Release 24 Hr 600 mg PO QAM RF: 0 metoprolol tartrate 25 mg Tablet 12.5 mg PO BID RF: 0 acetaminophen 325 mg Tablet 650 mg PO Q4 MDD 3g PRN (Reason: Fever Or Pain) RF: 0 Humulin R Regular U-100 Insuln 100 unit/mL Solution 1 sliding scale dose SUBCUT ACHS RF: 0 furosemide 20 mg Tablet 20 mg PO QAM Qty: 30 RF: 0 Referrals Referrals: [facility] [Non-Staff] -
[2022-01-15 10:49] LABS: Basophils # (auto) 0.01 K/uL (0-0.2); Basophils % (auto) 0.1 %; Eosinophils # (auto) 0.01 K/uL (0-0.5); Eosinophils % (auto) 0.1 %; Hematocrit (blood only) 43.2 % (42-52); Hemoglobin 11.6 g/dL (14.0-18.0); Immature Granulocytes # (auto) 0.15 K/uL (0.00-0.02); Immature Granulocytes % (auto) 1.4 %; Lymphocytes # (auto) 0.73 K/uL (1.2-3.4); Lymphocytes % (auto) 6.8 %; Mean Corpuscular Hemoglobin 26.4 pg (25-34); Mean Corpuscular Hgb Conc 26.9 g/dL (32-36); Mean Corpuscular Volume 98.4 fL (80-100); Mean Platelet Volume 11.5 fL (7.4-10.4); Monocytes # (auto) 0.69 K/uL (0.11-0.59); Monocytes % (auto) 6.4 %; Neutrophils % (auto) 85.2 %; Platelet Count 260 K/uL (130-400); RDW Standard Deviation 60.2 fL (36.4-46.3); Red Blood Count 4.39 M/uL (4.7-6.1); White Blood Count 10.79 K/uL (4.8-10.8)
--- NOTE | 2022-01-15 10:53 | XRay Report ---
XR chest 1V portable HISTORY: 71 years-old Male SEPSIS acute sepsis COMPARISON: Chest radiograph 10/07/2021 TECHNIQUE: Portable AP view of the chest FINDINGS: Cardiac silhouette is enlarged. Small layering pleural effusions with mild bibasilar opacities. Pulmo nary vascular congestion with interstitial coarsening. No pneumothorax. Degenerative changes of the s houlders and spine. IMPRESSION: 1. Cardiomegaly with pulmonary edema. 2. Small layering pleural effusions with right greater than left bibasilar opacities. ACT 112: Negative or not required by law. The above report was generated using voice recognition software. It may contain grammatical, syntax o r spelling errors. Electronically signed by: Cayetano Puckett M.D. 01/15/2022 10:52 AM
[2022-01-15] MEDS ORDERED: PIPERACILLIN/TAZOBACTAM 4.5 GM/120 ML BAG IV ONE (10:56)
[2022-01-15] MEDS ORDERED: PIPERACILL/TAZOBAC CONSULT ACTIVE PRN ×2 (10:56→14:38)
[2022-01-15 11:00] LABS: INR 1.1 (0.9-1.1); Partial Thromboplastin Ratio 1.1; Partial Thromboplastin Time 30.6 Seconds (21.0-31.0); Prothrombin Time 11.6 Seconds (9.0-12.0)
[2022-01-15 11:09] LABS: Troponin I < 0.03 ng/ml (0-0.04)
[2022-01-15 11:10] LABS: Base Excess VBG 9.6 mEq/L; Oxygen Saturation VBG 78.8 %; pH VBG 7.13 (7.36-7.41)
[2022-01-15 11:15] LABS: iSTAT Blood Urea Nitrogen 15 mg/dl (7-18); iSTAT Carbon Dioxide > 40 mmol/L (24-31); iSTAT Chloride 94 mmol/L (101-112); iSTAT Creatinine 0.7 mg/dl (0.6-1.3); iSTAT Glucose 157 mg/dl (70-99); iSTAT Hematocrit 42 % (42-52); iSTAT Hemoglobin 14.3 g/dl (14.0-18.0); iSTAT Ionized Calcium 1.27 mmol/l (1.12-1.32); iSTAT Potassium 3.7 mmol/L (3.3-5.0); iSTAT Sodium 144 mmol/L (135-144)
[2022-01-15 11:33] LABS: Alanine Aminotransferase 3 U/L (7-52); Albumin Globulin Ratio 0.8 (0.9-2); Albumin Level 3.3 gm/dl (3.4-5.0); Alkaline Phosphatase 64 U/L (34-104); BUN Creatinine Ratio 32.6 (10-20); Bilirubin,Total 0.3 mg/dl (0.2-1.0); Blood Urea Nitrogen 14 mg/dl (6-23); Calcium 9.7 mg/dl (8.5-10.1); Chloride 97 mmol/L (98-107); Creatinine Clr Calc Pharmacy 213.1 ml/min; Est GFR (African American) 136.4 ml/min; Est GFR (Non-African American) 117.6 ml/min; Globulin 4.3 gm/dl (2.5-4.0); Glucose 141 mg/dl (70-99(Fasting)); Sodium 144 mmol/L (136-145); Total Protein 7.6 gm/dl (6.0-8.3)
[2022-01-15 11:48] LABS: Aspartate Aminotransferase 9 U/L (13-39); Potassium 3.9 mmol/L (3.5-5.1)
[2022-01-15 11:49] LABS: Carbon Dioxide > 45 mmol/L (21-32)
--- NOTE | 2022-01-15 12:08 | Electrocardiogram Report ---
Test Reason : Blood Pressure : / mmHG Vent. Rate : 116 BPM Atrial Rate : 116 BPM P-R Int : 214 ms QRS Dur : 088 ms QT Int : 292 ms P-R-T Axes : 045 086 030 degrees QTc Int : 405 ms Sinus tachycardia with 1st degree A-V block with frequent Premature ventricular complexes Otherwise normal ECG When compared with ECG of 08-OCT-2021 05:45, Premature ventricular complexes are now Present Confirmed by Dieudonne Echols ([id number]) on 01/15/2022 12:07:39 PM Referred By: Confirmed By:Dieudonne Echols
[2022-01-15] MEDS ORDERED: OPTIRAY 320 125ml IV ONE (12:10)
--- NOTE | 2022-01-15 12:19 | CT Scan Report ---
CT head/brain wo con CLINICAL HISTORY: 71 years-old Male with ams. Acutely altered mental status TECHNIQUE: Multiple axial CT images of the head were obtained without contrast. A dose lowering tech nique was utilized adhering to the principles of ALARA. COMPARISON: None. FINDINGS: No acute intracranial hemorrhage, midline shift, intracranial mass, hydrocephalus, territorial ischem ia or abnormal extra-axial collection. Minimal involutional changes. Mild white matter hypodensities suggest chronic microvascular ischemic disease. The calvarium is intact. The paranasal sinuses, mastoid air cells, and middle ear cavities are clear . IMPRESSION: No acute intracranial abnormality. ACT 112: Negative or not required by law. The above report was generated using voice recognition software. It may contain grammatical, syntax o r spelling errors. Electronically signed by: Cayetano Puckett M.D. 01/15/2022 12:17 PM
[2022-01-15] MEDS ORDERED: RAPID SEQUENCE INDUCTION BAG ONE (12:21)
--- NOTE | 2022-01-15 12:34 | CT Scan Report ---
CT angio chest PE protocol CT DOSE: 1428.29 mGy.cm HISTORY: 71 years-old Male with PE. Acute shortness of breath with altered mental status TECHNIQUE: Multiple CTA images of the chest were obtained after the intravenous administration of 119 ml Optiray. Coronal and sagittal MIPS were obtained from the axial data set and were submitted for review. All measurements were obtained according to NASCET criteria. A dose lowering technique was u tilized adhering to the principles of ALARA. COMPARISON: Chest radiograph of same day, CTA chest 10/06/2021 FINDINGS: CTA: Mildly moderate cardiac enlargement. Trace pericardial effusion. Moderate coronary artery calcificati ons. No thoracic aortic aneurysm or dissection. There is patency of the imaged great vessels. Mild de scending thoracic aortic tortuosity. Dilated pulmonary artery suggests pulmonary arterial hypertensio n. CT CHEST: No thyroid nodules. Mediastinal adenopathy redemonstrated. Index right paratracheal lymph node measur es 2.3 x 1.6 cm 0.5 x 2.1 cm. A 2.1 x 1.5 cm lymph node on image 213 previously measured 2.0 x 1.7 cm . Mild right hilar adenopathy is likely stable. Trace left and small right pleural effusions. No pneumothorax. Emphysema. Intralobular septal with br onchial wall thickening. Tracheobronchial secretions with mucous plugging most pronounced within the right lung base. There is consolidation with volume loss of the right lower lobe. Patchy groundglass and consolidative opacities are noted within the right greater than left upper lobes. Linear left bas ilar opacities favor atelectasis. The spleen and liver appear enlarged. There is suggested hepatic steatosis. Gynecomastia. Degenerativ e changes of the shoulders and spine. IMPRESSION: 1. Cardiomegaly with emphysema and suggestion of mild pulmonary edema. No pulmonary emboli. 2. Trace left and small right pleural effusions. 3. Tracheobronchial secretions with mucous plugging most pronounced within the right lower lobe. Patc hy opacities, greatest throughout the right lung with dense consolidation and atelectasis of the righ t lower lobe. Findings are suspicious for aspiration pneumonia with right lower lobe mucous plug. 4. Mediastinal adenopathy, similar to mildly improved from prior. 5. Pulmonary arterial hypertension ACT 112: Negative or not required by law. The above report was generated using voice recognition software. It may contain grammatical, syntax o r spelling errors. Electronically signed by: Cayetano Puckett M.D. 01/15/2022 12:33 PM
[2022-01-15] MEDS ORDERED: PROPOFOL IV EMULSION 10 MG/ML 100 ML VIAL IV ONE (12:38)
[2022-01-15] MEDS ORDERED: STAT IV Infusion **Titration per Protocol STA ×2 (12:39→13:13)
[2022-01-15] MEDS ORDERED: PROPOFOL BOLUS FROM BAG IV PRN ×2 (12:39→14:29)
[2022-01-15] MEDS ORDERED: propofoL 1,000 MG/100 ML VIAL IV SCH (12:45)
--- NOTE | 2022-01-15 12:52 | XRay Report ---
XR chest 1V portable HISTORY: 71 years-old Male ett acute respiratory failure COMPARISON: Chest radiograph and CTA chest studies of same day TECHNIQUE: Portable AP view of the chest FINDINGS: Cardiac silhouette is enlarged. Status post placement of an endotracheal tube, distal tip terminating 4.6 cm superior to the keila. Trace left and small right pleural effusions with right lung base air space opacities and volume loss. Degenerative changes of the shoulders and spine. No pneumothorax. Em physema. Suggestion of mild pulmonary edema. Bones appear grossly intact. IMPRESSION: 1. Status post placement of an endotracheal tube, distal tip terminating 4.6 cm superior to the nicole a. 2. Trace left and small right pleural effusions. 3. Airspace opacities of the right lung redemonstrated. 4. Cardiomegaly with mild pulmonary edema. ACT 112: Negative or not required by law. The above report was generated using voice recognition software. It may contain grammatical, syntax o r spelling errors. Electronically signed by: Cayetano Puckett M.D. 01/15/2022 12:51 PM
--- NOTE | 2022-01-15 13:04 | Critical Care Consultation ---
Date of Consultation January 15, 2022 Assessment & Plan (1) Acute hypoxemic respiratory failure: (2) Hypercapnic respiratory failure: (3) Encephalopathy: Impression: 71-year-old male with history of obesity, possible obstructive lung disease, dementia, seizure disorder, and potential sleep disordered breathing admitted with hypoxemic and hypercarbic respiratory failure requiring intubation mechanical ventilation. Recommendations: 1. Neurologic: I suspect the patient's encephalopathy is related to underlying hypercarbic respiratory failure. Will check urine drug screen. This is been a recurrent issue with the patient and he had tracheostomy placed previously. We will see how he responds with correction of his blood gas. Initial imaging unrevealing and no indication for repeat imaging at this point time. No evidence of seizure activity. We will continue his home antiepileptic medications. No indication for EEG monitoring currently. Continue Aricept. Continue sedation with propofol for now 2. Respiratory: Hypoxemic and hypercarbic respiratory failure. Unclear if this represents obesity hypoventilation syndrome, neuromuscular weakness, or other etiology of hypercarbic respiratory failure. Continue positive pressure ventilation until pH normalizes. Given his markedly elevated bicarb, I suspect that he has chronic hypercarbic respiratory failure. He does not appear to be a great candidate for tracheostomy so hopefully we can get him extubated and go from there. He does have significant secretions in the tracheobronchial tree as well as patchy parenchymal infiltrates consistent with pneumonia. Sputum culture is pending. See antibiotics below. Will likely require long-term noninvasive nocturnal positive airway pressure. Await theophylline level. May require bronchoscopy if atelectasis and secretions failed to improve with endotracheal suctioning 3. Cardiovascular: Patient is hemodynamically stable. BMP is normal. Continue p.o. Lasix and Lipitor. Continue metoprolol. 4. Renal: No current issues. Electrolyte replacement protocol. Acid-base status demonstrates acute on chronic respiratory acidosis. Continue oral Lasix. 5. ID: Initiated on Zosyn. Add vancomycin as he appears to be in a congregate setting. Unclear if he has been on antibiotics recently. Await nasal MRSA swabs. May be able to discontinue. Antibiotics may be able to be deescalated based on antimicrobial therapy. 6. GI: N.p.o. for now. PPI in place. 7. Endocrine: Glycemic control per ICU protocol. 8. Heme-onc: No current issues. DVT prophylaxis. Patient is critically ill. No family or involved parties available. We will need to address CODE STATUS if we can find surrogate decision maker. 50 min CC time evaluating and managing patinet. History of Present Illness History of Present Illness Called by the ER to assist in evaluation management of this patient with hypoxemic and hypercarbic respiratory failure intubated in the emergency room. No history is available from the patient as he is intubated. Minimal history available from the ER staff. No records accompany the patient. Patient is a 71-year-old morbidly obese male with a prior history of tracheosto my. He also has a history of recurrent hypoxemic and hypercarbic respiratory failure last admitted back in October. He he was supposedly supposed to follow-up with outpatient PFTs and consideration for a polysomnogram. Is unclear if this was accomplished or not. He also has a history of seizure disorder. He was brought to the emergency room due to altered mental status. He was found to be hypercarbic. He was attempted on BiPAP and subsequently intubated. CT scan shows patchy parenchymal infiltrates. Has been initiated on antibiotics in the form of Zosyn. He is hemodynamically stable and is oxygenating well on the ventilator. Repeat blood gas is currently pending. Allergies Allergy/AdvReac Type Severity Reaction Status Date / Time ketorolac [From Toradol] Allergy Unknown Unknown Verified 01/15/22 12:21 Home Medications Medication Instructions Recorded Confirmed Type Lactobacillus acidophilus 0 mmu cells PO QAM #0 07/31/21 01/15/22 History acetaminophen 325 mg tablet 650 mg PO Q4 PRN MDD 3g 07/31/21 01/15/22 History acetazolamide 500 mg 500 mg PO QAM 07/31/21 01/15/22 History capsule,extended release aspirin 81 mg chewable tablet 81 mg PO QAM 07/31/21 01/15/22 History atorvastatin 40 mg tablet 40 mg PO HS 07/31/21 01/15/22 History cholecalciferol (vitamin D3) 25 25 mcg PO QAM 07/31/21 01/15/22 History mcg (1,000 unit) tablet divalproex 250 mg tablet,delayed 250 mg PO BID 07/31/21 01/15/22 History release donepezil 5 mg tablet (Aricept) 5 mg PO QAM 07/31/21 01/15/22 History guaifenesin 600 mg tablet, 600 mg PO Q12H 07/31/21 01/15/22 History extended release 12 hr insulin glargine 100 unit/mL (3 35 unit SUBCUT HS 07/31/21 01/15/22 History mL) subcutaneous pen (Lantus Solostar U-100 Insulin) insulin regular human 100 unit/mL 1 sliding scale dose SUBCUT ACHS 07/31/21 01/15/22 History injection solution (Humulin R Regular U-100 Insulin) metoprolol tartrate 25 mg tablet 12.5 mg PO BID 07/31/21 01/15/22 History pediatric multivitamin 1 tab PO QAM 07/31/21 01/15/22 History potassium chloride 20 mEq 20 meq PO WM 07/31/21 01/15/22 History tablet,extended release quetiapine 50 mg tablet (Seroquel) 50 mg PO BID 07/31/21 01/15/22 History sertraline 100 mg tablet 100 mg PO QAM 07/31/21 01/15/22 History theophylline 600 mg 600 mg PO QAM 07/31/21 01/15/22 History tablet,extended release 24 hr furosemide 20 mg tablet 20 mg PO QAM #30 tab 08/19/21 01/15/22 Rx ipratropium 0.5 mg-albuterol 3 mg 3 ml INHALATION Q4H 01/15/22 01/15/22 History (2.5 mg base)/3 mL nebulization soln terazosin 2 mg capsule 2 mg PO QAM 01/15/22 01/15/22 History Patient History Medical History CHF (congestive heart failure) Dementia Diabetes HLD (hyperlipidemia) HTN (hypertension) Hydronephrosis of right kidney No pertinent family history Obesity Obstructive lung disease Smoker Surgical History No pertinent past surgical history Social History Smoking Status: Former smoker Second Hand Exposure: No; Hx Alcohol Use: No Hx Substance Use: No Preferred Language: Tajik Communication Ability: Impaired Book Editor Required: No Beliefs That Will Affect Care: None marital status: Current Living Situation: Halfway How many Children do You have: 2 Feels Safe at Home: Yes Assistive Devices: None Review of Systems Review of Systems: Unobtainable due to endotracheal tube Physical Exam Constitutional: WD/WN, vitals as above Intubated sedated and paralyzed. Morbidly obese Neck: trachea midline, no thyromegaly Respiratory: Auscultation: + rhonchi; no crackles and no wheezes Intubated on the ventilator Cardiovascular: RRR, no murmur, no edema Gastrointestinal (Abdomen): normal bowel sounds, soft, nontender, no hepatosplenomegaly Musculoskeletal: Extremities: extremities normal to inspection Skin: no rashes, warm and dry Neurologic: Sedated Lymphatic: no cervical lymphadenopathy Results & Data Results & Data ([facility]) Vital Signs (Past 12 Hours) Vital Signs Temp Pulse Pulse Resp BP BP Pulse Ox 01/15/22 12:17 115 H 26 H 167/94 H 96 01/15/22 10:48 36.8 C 115 H 26 H 142/77 H 55 L 01/15/22 10:45 113 H 113 H 18 92 01/15/22 10:37 95 01/15/22 10:19 55 L Critical Care Results & Data Vital Signs (Past 12 Hours) Vital Signs Temp Pulse Pulse Resp BP BP Pulse Ox 01/15/22 12:17 115 H 26 H 167/94 H 96 01/15/22 10:48 36.8 C 115 H 26 H 142/77 H 55 L 01/15/22 10:45 113 H 113 H 18 92 01/15/22 10:37 95 01/15/22 10:19 55 L Lab & Micro Results (Past 24 Hours) RBC 4.39 M/uL (4.7-6.1) L 01/15/22 WBC 10.79 K/uL (4.8-10.8) 01/15/22 Hgb 11.6 g/dL (14.0-18.0) L 01/15/22 Hct 43.2 % (42-52) 01/15/22 MCV 98.4 fL (80-100) 01/15/22 MCH 26.4 pg (25-34) 01/15/22 MCHC 26.9 g/dL (32-36) L 01/15/22 RDW Standard Deviation 60.2 fL (36.4-46.3) H 01/15/22 RDW Coefficient of Variation 17.0 % (11.5-14.5) H 01/15/22 Plt Count 260 K/uL (130-400) 01/15/22 MPV 11.5 fL (7.4-10.4) H 01/15/22 Neutrophils (%) (Auto) 85.2 % 01/15/22 Lymphocytes (%) (Auto) 6.8 % 01/15/22 Monocytes # (Auto) 0.69 K/uL (0.11-0.59) H 01/15/22 Eosinophils # (Auto) 0.01 K/uL (0-0.5) 01/15/22 Immature Granulocyte % (Auto) 1.4 % 01/15/22 Neutrophils # (Auto) 9.20 K/uL (1.4-6.5) H 01/15/22 Lymphocytes # (Auto) 0.73 K/uL (1.2-3.4) L 01/15/22 Monocytes # (Auto) 0.69 K/uL (0.11-0.59) H 01/15/22 Eosinophils # (Auto) 0.01 K/uL (0-0.5) 01/15/22 Basophils # (Auto) 0.01 K/uL (0-0.2) 01/15/22 Immature Granulocyte # (Auto) 0.15 K/uL (0.00-0.02) H 01/15/22 Na 144 mmol/L (136-145) 01/15/22 K 3.9 mmol/L (3.5-5.1) 01/15/22 Cl 97 mmol/L (98-107) L 01/15/22 CO2 > 45 mmol/L (21-32) H* 01/15/22 Anion Gap TNP 01/15/22 BUN 14 mg/dl (6-23) 01/15/22 Creatinine 0.43 mg/dl (0.6-1.4) L 01/15/22 Estimated GFR ( Amer) 136.4 ml/min 01/15/22 Estimated GFR (Non-Af Amer) 117.6 ml/min 01/15/22 BUN/Creatinine Ratio 32.6 (10-20) H 01/15/22 Glu 141 mg/dl (70-99(Fasting)) H 01/15/22 Ca 9.7 mg/dl (8.5-10.1) 01/15/22 Total Bilirubin 0.3 mg/dl (0.2-1.0) 01/15/22 AST 9 U/L (13-39) L 01/15/22 ALT 3 U/L (7-52) L 01/15/22 Alkaline Phosphatase 64 U/L (34-104) 01/15/22 TP 7.6 gm/dl (6.0-8.3) 01/15/22 Albumin 3.3 gm/dl (3.4-5.0) L 01/15/22 Globulin 4.3 gm/dl (2.5-4.0) H 01/15/22 Albumin/Globulin Ratio 0.8 (0.9-2) L 01/15/22 Mg 2.0 mg/dl (1.7-2.4) 01/15/22 10:35 01/15/22 Calcium Level 9.7 mg/dl (8.5-10.1) 01/15/22 10:35 01/15/22 Prothromb Time International Ratio 1.1 (0.9-1.1) 01/15/22 10:35 01/15/22 Venous Blood pH 7.13 (7.36-7.41) L 01/15/22 10:54 01/15/22 Venous Blood Partial Pressure CO2 134 mmHg (38-50) H 01/15/22 10:54 01/15/22 Venous Blood Partial Pressure O2 51 mmHg 01/15/22 10:54 01/15/22 Venous Blood HCO3 44 mmol/L 01/15/22 10:54 01/15/22 Venous Blood Base Excess 9.6 mEq/L 01/15/22 10:54 01/15/22 Venous Blood Oxygen Saturation 78.8 % 01/15/22 10:54 01/15/22 Blood Gas Barometric Pressure 736.2 mm/Hg 01/15/22 10:54 01/15/22 Blood Gas Barometric Pressure 736.2 mm/Hg 01/15/22 10:54 01/15/22 Diagnostic Findings (Past 24 Hours) Chest X-Ray 01/15/22 10:37 XR chest 1V portable HISTORY: 71 years-old Male SEPSIS acute sepsis COMPARISON: Chest radiograph 10/07/2021 TECHNIQUE: Portable AP view of the chest FINDINGS: Cardiac silhouette is enlarged. Small layering pleural effusions with mild bibasilar opacities. Pulmonary vascular congestion with interstitial coarsening. No pneumothorax. Degenerative changes of the shoulders and spine. IMPRESSION: 1. Cardiomegaly with pulmonary edema. 2. Small layering pleural effusions with right greater than left bibasilar opacities. ACT 112: Negative or not required by law. The above report was generated using voice recognition software. It may contain grammatical, syntax or spelling errors. Electronically signed by: Caeytano Puckett M.D. 01/15/2022 10:52 AM Chest CTA 01/15/22 10:54 CT angio chest PE protocol CT DOSE: 1428.29 mGy.cm HISTORY: 71 years-old Male with PE. Acute shortness of breath with altered mental status TECHNIQUE: Multiple CTA images of the chest were obtained after the intravenous administration of 119 ml Optiray. Coronal and sagittal MIPS were obtained from the axial data set and were submitted for review. All measurements were obtained according to NASCET criteria. A dose lowering technique was utilized adhering to the principles of ALARA. COMPARISON: Chest radiograph of same day, CTA chest 10/06/2021 FINDINGS: CTA: Mildly moderate cardiac enlargement. Trace pericardial effusion. Moderate coronary artery calcifications. No thoracic aortic aneurysm or dissection. There is patency of the imaged great vessels. Mild descending thoracic aortic tortuosity. Dilated pulmonary artery suggests pulmonary arterial hypertension. CT CHEST: No thyroid nodules. Mediastinal adenopathy redemonstrated. Index right paratracheal lymph node measures 2.3 x 1.6 cm 0.5 x 2.1 cm. A 2.1 x 1.5 cm lymph node on image 213 previously measured 2.0 x 1.7 cm. Mild right hilar adenopathy is likely stable. Trace left and small right pleural effusions. No pneumothorax. Emphysema. Intralobular septal with bronchial wall thickening. Tracheobronchial secretions with mucous plugging most pronounced within the right lung base. There is consolidation with volume loss of the right lower lobe. Patchy groundglass and consolidative opacities are noted within the right greater than left upper lobes. Linear left basilar opacities favor atelectasis. The spleen and liver appear enlarged. There is suggested hepatic steatosis. Gynecomastia. Degenerative changes of the shoulders and spine. IMPRESSION: 1. Cardiomegaly with emphysema and suggestion of mild pulmonary edema. No pulmonary emboli. 2. Trace left and small right pleural effusions. 3. Tracheobronchial secretions with mucous plugging most pronounced within the right lower lobe. Patchy opacities, greatest throughout the right lung with dense consolidation and atelectasis of the right lower lobe. Findings are suspicious for aspiration pneumonia with right lower lobe mucous plug. 4. Mediastinal adenopathy, similar to mildly improved from prior. 5. Pulmonary arterial hypertension ACT 112: Negative or not required by law. The above report was generated using voice recognition software. It may contain grammatical, syntax or spelling errors. Electronically signed by: Cayetano Puckett M.D. 01/15/2022 12:[address] 01/15/22 11:11 CT head/brain wo con CLINICAL HISTORY: 71 years-old Male with ams. Acutely altered mental status TECHNIQUE: Multiple axial CT images of the head were obtained without contrast. A dose lowering technique was utilized adhering to the principles of ALARA. COMPARISON: None. FINDINGS: No acute intracranial hemorrhage, midline shift, intracranial mass, hydrocephalus, territorial ischemia or abnormal extra-axial collection. Minimal involutional changes. Mild white matter hypodensities suggest chronic microvascular ischemic disease. The calvarium is intact. The paranasal sinuses, mastoid air cells, and middle ear cavities are clear. IMPRESSION: No acute intracranial abnormality. ACT 112: Negative or not required by law. The above report was generated using voice recognition software. It may contain grammatical, syntax or spelling errors. Electronically signed by: Cayetano Puckett M.D. 01/15/2022 12:17 PM Chest X-Ray 01/15/22 12:32 XR chest 1V portable HISTORY: 71 years-old Male ett acute respiratory failure COMPARISON: Chest radiograph and CTA chest studies of same day TECHNIQUE: Portable AP view of the chest FINDINGS: Cardiac silhouette is enlarged. Status post placement of an endotracheal tube, distal tip terminating 4.6 cm superior to the keila. Trace left and small right pleural effusions with right lung base airspace opacities and volume loss. Degenerative changes of the shoulders and spine. No pneumothorax. Emphysema. Suggestion of mild pulmonary edema. Bones appear grossly intact. IMPRESSION: 1. Status post placement of an endotracheal tube, distal tip terminating 4.6 cm superior to the keila. 2. Trace left and small right pleural effusions. 3. Airspace opacities of the right lung redemonstrated. 4. Cardiomegaly with mild pulmonary edema. ACT 112: Negative or not required by law. The above report was generated using voice recognition software. It may contain grammatical, syntax or spelling errors. Electronically signed by: Cayetano Puckett M.D. 01/15/2022 12:51 PM RT Ventilator Mngmt (Last Documented) Ventilator Ordered Settings Respiratory Rate 26 01/15/22 12:17 Fraction of Inspired Oxygen 60 01/15/22 12:00 Ventilator - PT Measurements Respiratory Rate 26 Coding Level of Care Code Critical Care 1st 30-74 mins Diagnoses Acute hypoxemic respiratory failure J96.01 Hypercapnic respiratory failure J96.92 Encephalopathy G93.40
[2022-01-15] MEDS ORDERED: ICU PROTOCOL FOR HYPERGLYCEMIA PRN (13:08)
[2022-01-15] MEDS ORDERED: fentaNYL citrate 100 MCG/2 ML VIAL IV PRN (13:13)
[2022-01-15] MEDS ORDERED: NORMOSOL-R 1,000 ML IV SCH (13:15)
[2022-01-15] MEDS ORDERED: VANCOMYCIN CONSULT ACTIVE PRN (13:18)
[2022-01-15 13:32] LABS: iSTAT Arterial Blood Gas HCO3 43 meg/L (19-24); iSTAT Arterial Blood Gas pCO2 80 mmHg (35-46); iSTAT Arterial Blood Gas pH 7.34 (7.35-7.45); iSTAT Arterial Blood Gas pO2 43 mmHg (80-95); iSTAT Carbon Dioxide > 40 mmol/L (24-31); iSTAT Hematocrit 38 % (42-52); iSTAT Hemoglobin 12.9 g/dl (14.0-18.0); iSTAT Potassium 4.6 mmol/L (3.3-5.0); iSTAT Sodium 140 mmol/L (135-144)
--- NOTE | 2022-01-15 13:41 | History & Physical Report ---
Date of Service January 15, 2022 Assessment & Plan (1) Acute hypoxemic respiratory failure: Plan: Dale Junior is a 71-year-old male with a past medical history of chronic respiratory failure with recurrent aspiration with required ventilation while at [facility] and eventually required trach placement at [facility] with peg tube placement and removal last July 2021 per pts , COPD, seizure, HLD, HTN, diabetes, and dementia. Acute on chronic hypoxemic hypercarbic respiratory failure Chronic hypercarbic respiratory failure, AMBERLY versus obesity hypoventilation. Patient has refused CPAP at [facility]. Hx of recurrent aspiration and recent hospital admisison for asp PNA with lobar collapse. On admission hypoxic to SPO2 55, initial VBG pH 7.13, PCO2 134, PO2 51, HCO3 44. BMP bicarb>45. Acute on chronic hypercarbic, hypoxic respiratory failure Borderline leukocytosis but NLR >[address]-C: Cardiomegaly with emphysema and suggestion of mild pulmonary edema. No pulmonary emboli. Trace left and small right pleural effusions. Tracheobronchial secretions with mucous plugging most pronounced within the right lower lobe. Patchy opacities, greatest throughout the right lung with dense consolidation and atelectasis of the right lower lobe. Findings are suspicious for aspiration pneumonia with right lower lobe mucous plug. Mediastinal adenopathy, similar to mildly improved from prior. Pulmonary arterial hypertension - CH-H: naf Covid negative Received 40 mg Solu-Medrol in ER Continue Vanco/Zosyn for aspiration pneumonia Intubated and ventilated, AC/VC VT 440, PEEP 5, FiO2 35,breathing over base @ current RR 24 - Repeat improving ABG: pH 7.37, pCO2 79.7, P02 43, HCO2 42 on repeat ICU consulted Continue fentanyl/propofol PPI daily (2) Aspiration pneumonia of right lower lobe: Plan: As above (3) Dementia: Plan: Likely acutely worsened by hyper cardiac encephalopathy UDS pending Continue Aricept - CT-H naf (4) Diabetes: Plan: ICU hyperglycemic protocol (5) Encephalopathy: Plan: See above (6) HLD (hyperlipidemia): Plan: Continue atorvastatin when able to take p.o. (7) HTN (hypertension): Plan: Continue metoprolol tartrate 12.5 mg p.o. twice daily via OG once placed (8) Hypercapnic respiratory failure: Plan: As above (9) Seizure: Plan: Continue Avapro asked to 50 mg p.o. twice daily (10) Anxiety and depression: Plan: Seroquel, sertraline 100 p.o. daily (11) CHF (congestive heart failure): Plan: Metoprolol as above Continue home Lasix 20 mg every morning Continue aspirin daily - EKG: sinus tachycardia w/ PVC, 1* AVB QTc 405 - No echo on file - Plan: DVT prophylaxis: Lovenox Diet: N.p.o. CODE STATUS: Full code Disposition: ICU History of Present Illness Primary Care Provider: [facility] Dale Junior is a 71-year-old male with a past medical history of chronic respiratory failure with recurrent aspiration with required ventilation while at [facility] and eventually required trach placement at [facility] with peg tube placement and removal last July 2021 per pts , COPD, seizure, HLD, HTN, diabetes, and dementia. Collateral obtained from patient's Jennifer Harvey who is his surrogate decision-maker. History from patient is limited due to ETT. At time of visit patient intubated, ventilated AC/VC VT 440, PEEP 5, FiO2 35%, rate 20 breathing over 24. Patient Covid negative, received Covid vaccination unclear if received booster. Patient's he is a resident of the [place] at [facility] and is nearly bedbound, was in his otherwise normal state of health 1 week ago. Per his he started to become confused 3 days ago and had progressive somnolence and confusion since that time. He was brought in today for difficulty breathing, hypoxia, and confusion. CT of the chest shows fluid/debris in the right lower lobe airway and consolidation in the right lower lobe consistent with aspiration pneumonia. He has a history of obstructive sleep apnea last tested many years ago, his reports that he has refused CPAP and has not had a sleep apnea reevaluation. Medical History: Reviewed w/ Medications: Chart Reviewed Surgical History: Chart Reviewed Allergies: Reviewed Social History: no tobacco use since 2011, no etoh use Code Status: Full COde Allergies Allergy/AdvReac Type Severity Reaction Status Date / Time ketorolac [From Toradol] Allergy Unknown Unknown Verified 01/15/22 12:21 Home Medications Medication Instructions Recorded Confirmed Type Lactobacillus acidophilus 0 mmu cells PO QAM #0 07/31/21 01/15/22 History acetaminophen 325 mg tablet 650 mg PO Q4 PRN MDD 3g 07/31/21 01/15/22 History acetazolamide 500 mg 500 mg PO QAM 07/31/21 01/15/22 History capsule,extended release aspirin 81 mg chewable tablet 81 mg PO QAM 07/31/21 01/15/22 History atorvastatin 40 mg tablet 40 mg PO HS 07/31/21 01/15/22 History cholecalciferol (vitamin D3) 25 25 mcg PO QAM 07/31/21 01/15/22 History mcg (1,000 unit) tablet divalproex 250 mg tablet,delayed 250 mg PO BID 07/31/21 01/15/22 History release donepezil 5 mg tablet (Aricept) 5 mg PO QAM 07/31/21 01/15/22 History guaifenesin 600 mg tablet, 600 mg PO Q12H 07/31/21 01/15/22 History extended release 12 hr insulin glargine 100 unit/mL (3 35 unit SUBCUT HS 07/31/21 01/15/22 History mL) subcutaneous pen (Lantus Solostar U-100 Insulin) insulin regular human 100 unit/mL 1 sliding scale dose SUBCUT ACHS 07/31/21 01/15/22 History injection solution (Humulin R Regular U-100 Insulin) metoprolol tartrate 25 mg tablet 12.5 mg PO BID 07/31/21 01/15/22 History pediatric multivitamin 1 tab PO QAM 07/31/21 01/15/22 History potassium chloride 20 mEq 20 meq PO WM 07/31/21 01/15/22 History tablet,extended release quetiapine 50 mg tablet (Seroquel) 50 mg PO BID 07/31/21 01/15/22 History sertraline 100 mg tablet 100 mg PO QAM 07/31/21 01/15/22 History theophylline 600 mg 600 mg PO QAM 07/31/21 01/15/22 History tablet,extended release 24 hr furosemide 20 mg tablet 20 mg PO QAM #30 tab 08/19/21 01/15/22 Rx ipratropium 0.5 mg-albuterol 3 mg 3 ml INHALATION Q4H 01/15/22 01/15/22 History (2.5 mg base)/3 mL nebulization soln terazosin 2 mg capsule 2 mg PO QAM 01/15/22 01/15/22 History Past Med/Surg History Medical History CHF (congestive heart failure) Dementia Diabetes HLD (hyperlipidemia) HTN (hypertension) Hydronephrosis of right kidney No pertinent family history Obesity Obstructive lung disease Smoker Surgical History No pertinent past surgical history Social History Smoking Status: Former smoker Second Hand Exposure: No; Hx Alcohol Use: No Hx Substance Use: No Preferred Language: Khmer Communication Ability: Impaired Vacuum Tester Cans Required: No Beliefs That Will Affect Care: None marital status: Current Living Situation: Skilled Nursing How many Children do You have: 2 Feels Safe at Home: Yes Assistive Devices: None Review of Systems Review of Systems: Unavailable due to endotracheal intubation Physical Exam Physical Exam: General: Sedated, intubated. HEENT: Well-healed prior tracheostomy scar present on midline neck. Otherwise atraumatic. Pupils equal and reactive to light. Pulm: Intubated. Diminished air movement, coarse in the right lower lobe and crackles in the bases without wheezing. Regular, tachycardic symmetrical chest rise. No increase in work of breathing. No respiratory distress. Cardiac:tachycardic, regular, -mrg. Radial pulses intact and symmetrical. Abdominal: Obese, Nontender, nondistended, soft. BS present. Extremities: Warm, dry. Strength and sensation testing unable to be performed. Results & Data Results & Data ([facility]) Vital Signs (Past 12 Hours) Vital Signs Temp Pulse Pulse Resp BP BP Pulse Ox 01/15/22 12:17 115 H 26 H 167/94 H 96 01/15/22 10:48 36.8 C 115 H 26 H 142/77 H 55 L 01/15/22 10:45 113 H 113 H 18 92 01/15/22 10:37 95 01/15/22 10:19 55 L Code Status & VTE Plan VTE Prophylaxis Plan VTE Prophylaxis will be ordered: Yes PG Care Time/CCT Total # of Minutes Spent Total Time Spent with Patient: Total time spent is greater than 50% in coordination of care (as documented) at patient's floor/unit and/or counseling patient: Coding Level of Care Code 09217 Initial Inpt Care Lvl 3 Diagnoses Acute hypoxemic respiratory failure J96.01 Aspiration pneumonia of right lower lobe J69.0 Aspiration pneumonia type: unspecified Dementia F03.90 Diabetes E11.9 Encephalopathy G93.40 HLD (hyperlipidemia) E78.5 HTN (hypertension) I10 Hypercapnic respiratory failure J96.92 Seizure R56.9 Anxiety and depression F41.9; F32.A CHF (congestive heart failure) I50.9 (1) Aspiration pneumonia of right lower lobe Aspiration pneumonia type: unspecified Qualified Code(s): J69.0 - Pneumonitis due to inhalation of food and vomit
[2022-01-15 14:28] LABS: Amphetamines+Metham, Urine Neg (Neg); Barbiturates, Urine Neg (Neg); Benzodiazepine, Urine Neg (Neg); Cocaine, Urine Neg (Neg); MDMA (Ecstacy), Urine Neg (Neg); Methadone, Urine Neg (Neg); Opiate, Urine Neg (Neg); Phencyclidine, Urine Neg (Neg)
[2022-01-15] MEDS ORDERED: MAGNESIUM HYDROXIDE SUSP 30 ML UDC PO PRN (14:38)
[2022-01-15] MEDS ORDERED: PIPERACILLIN/TAZOBACTAM 3.375 GM in DEXTROSE 5% 100 ML IV SCH (14:38)
[2022-01-15] MEDS ORDERED: POLYETHYLENE (MIRALAX) 17 GM PACK PO PRN (14:38)
--- NOTE | 2022-01-15 14:53 | XRay Report ---
KUB HISTORY: Status post placement of an endotracheal tube Confirm OGT placement COMPARISON: Chest radiograph of same day at 12:19 PM. FINDINGS: The heart is enlarged. Layering pleural effusions with bibasilar densities. The endotrachea l tube terminates approximately 4.6 cm superior to the keila. Distal tip of enteric tube projects ov er the gastric body. Contrast noted within the renal collecting systems. The lower abdomen is exclude d from the [id number]. Nonobstructive bowel gas pattern. No renal calculi. No ureteral calculi. N o pneumoperitoneum or pneumatosis. No fracture. IMPRESSION: Distal tip of enteric tube projects over the gastric body. ACT 112: Negative or not required by law. The above report was generated using voice recognition software. It may contain grammatical, syntax o r spelling errors. Electronically signed by: Cayetano Puckett M.D. 01/15/2022 2:52 PM
[2022-01-15] MEDS ORDERED: VANCOMYCIN HCL 2,500 MG in SODIUM CHLORIDE 0.9% 500 ML IV ONE (15:00)
[2022-01-15] MEDS ORDERED: ENOXAPARIN INJ 40 MG/0.4 ML SYR SQ SCH (15:00)
[2022-01-15] MEDS ORDERED: PIPERACILLIN/TAZOBACTAM 4.5 GM in DEXTROSE 5% 100 ML IV ONE (15:15)
[2022-01-15] MEDS: propofoL 1,000 MG/100 ML VIAL IV SCH ×2 (15:22→20:48)
--- NOTE | 2022-01-15 15:32 | Pharmacy Report ---
Pharmacy Vanc AUC Short Note - Date of Service January 15, 2022 - Assessment & Plan Assessment 71 year old M receiving IV vancomycin for treatment of pneumonia. Pertinent microbiologic data includes: blood and sputum cultures pending. Day # 1 of antimicrobial therapy. Plan Vancomycin * AUC/KERRI is the preferred PK/PD target for vancomycin * AUC guided dosing is effective and associated with decreased risk of nephrotoxicity compared to traditional trough targets * Trough level of 14.2 mcg/mL is predicted to achieve target AUC/KERRI of 400-600 mg/L.hr and may be associated with a 9 % risk of nephrotoxicity * Started on loading dose of 2500 mg x 1 and a maintenance dose of 1500 mg IV every 12 hours * Trough level ordered for 01/17/22 or sooner if renal function changes significantly Pharmacy will continue to follow and will adjust dose/frequency as necessary. Jazmyn becker.
[2022-01-15 15:34] LABS: iSTAT Allen Test Pass; iSTAT Art Bld Gas pCO2 Correct 63 mmHg (35-46); iSTAT Art Bld Gas pH Corrected 7.434 (7.35-7.45); iSTAT Arterial Blood Gas HCO3 42 meg/L (19-24); iSTAT Arterial Blood Gas pCO2 63 mmHg (35-46); iSTAT Arterial Blood Gas pH 7.43 (7.35-7.45); iSTAT Arterial Blood Gas pO2 53 mmHg (80-95); iSTAT Arterial Blood Gas pO2 C 53; iSTAT Carbon Dioxide > 40 mmol/L (24-31); iSTAT FiO2 50 %; iSTAT Hematocrit 38 % (42-52); iSTAT Hemoglobin 12.9 g/dl (14.0-18.0); iSTAT Potassium 4.1 mmol/L (3.3-5.0); iSTAT Site R Radial; iSTAT Sodium 142 mmol/L (135-144)
[2022-01-15] MEDS: ICU ELECTROLYTE REPLACEMENT PROTOCOL SCH (18:39)
[2022-01-15 19:52] LABS: iSTAT Allen Test Pass; iSTAT Art Bld Gas pCO2 Correct 49 mmHg (35-46); iSTAT Art Bld Gas pH Corrected 7.536 (7.35-7.45); iSTAT Arterial Blood Gas HCO3 41 meg/L (19-24); iSTAT Arterial Blood Gas pCO2 47 mmHg (35-46); iSTAT Arterial Blood Gas pH 7.55 (7.35-7.45); iSTAT Arterial Blood Gas pO2 63 mmHg (80-95); iSTAT Arterial Blood Gas pO2 C 68; iSTAT Carbon Dioxide > 40 mmol/L (24-31); iSTAT FiO2 90 %; iSTAT Hematocrit 35 % (42-52); iSTAT Hemoglobin 11.9 g/dl (14.0-18.0); iSTAT Potassium 3.7 mmol/L (3.3-5.0); iSTAT Site L Radial; iSTAT Sodium 141 mmol/L (135-144)
[2022-01-15] MEDS ORDERED: SUCCINYLCHOLINE CHLORIDE 20 MG/ML 10 ML VIAL IV ONE (19:56)
[2022-01-15] MEDS ORDERED: KETAMINE HCL INJ 50 MG/ML 10 ML VIAL IV ONE (19:56)
[2022-01-15] MEDS: METOPROLOL TARTRATE 25 MG TAB PO SCH (20:55)
[2022-01-15] MEDS: QUEtiapine FUMARATE 25 MG TABLET PO SCH (20:55)
[2022-01-15] MEDS: ATORVASTATIN 40 MG TAB NG SCH (20:55)
[2022-01-15] MEDS: PIPERACILLIN/TAZOBACTAM 4.5 GM in DEXTROSE 5% 100 ML IV SCH (20:57)
[2022-01-15] MEDS: DOCUSATE SODIUM 100 MG CAP PO SCH (20:58)
[2022-01-15] MEDS: ALBUT/IPRATROP 3MG/0.5MG NEB 3 ML VIAL INH SCH (21:40)
[2022-01-15] MEDS: DIVALPROEX DELAY RELEASE 250 MG TABEC PO SCH (23:04)
[2022-01-16] MEDS: ALBUT/IPRATROP 3MG/0.5MG NEB 3 ML VIAL INH SCH ×4 (00:03→19:24)
[2022-01-16] MEDS: propofoL 1,000 MG/100 ML VIAL IV SCH ×3 (01:48→12:53)
[2022-01-16] MEDS ORDERED: VANCOMYCIN HCL 1,500 MG in SODIUM CHLORIDE 0.9% 500 ML IV SCH (04:00)
[2022-01-16 04:08] LABS: iSTAT Allen Test Pass; iSTAT Art Bld Gas pCO2 Correct 60 mmHg (35-46); iSTAT Art Bld Gas pH Corrected 7.442 (7.35-7.45); iSTAT Arterial Blood Gas HCO3 41 meg/L (19-24); iSTAT Arterial Blood Gas pCO2 59 mmHg (35-46); iSTAT Arterial Blood Gas pH 7.45 (7.35-7.45); iSTAT Arterial Blood Gas pO2 57 mmHg (80-95); iSTAT Arterial Blood Gas pO2 C 59; iSTAT Carbon Dioxide > 40 mmol/L (24-31); iSTAT FiO2 50 %; iSTAT Hematocrit 37 % (42-52); iSTAT Hemoglobin 12.6 g/dl (14.0-18.0); iSTAT Potassium 3.3 mmol/L (3.3-5.0); iSTAT Site R Radial; iSTAT Sodium 144 mmol/L (135-144)
[2022-01-16] MEDS: PIPERACILLIN/TAZOBACTAM 4.5 GM in DEXTROSE 5% 100 ML IV SCH ×3 (04:46→20:39)
[2022-01-16 05:47] LABS: BUN Creatinine Ratio 28.8 (10-20); Calcium 9.1 mg/dl (8.5-10.1); Creatinine Clr Calc Pharmacy 125.5 ml/min; Est GFR (African American) 109.7 ml/min; Est GFR (Non-African American) 94.6 ml/min; Magnesium 1.8 mg/dl (1.7-2.4); Phosphorus 1.7 mg/dl (2.5-4.9); Potassium 3.3 mmol/L (3.5-5.1)
[2022-01-16 05:51] LABS: Hematocrit (blood only) 35.8 % (42-52); Immature Granulocytes # (auto) 0.06 K/uL (0.00-0.02); Immature Granulocytes % (auto) 0.4 %; Lymphocytes # (auto) 1.07 K/uL (1.2-3.4); Lymphocytes % (auto) 6.5 %; Mean Corpuscular Hemoglobin 26.4 pg (25-34); Mean Corpuscular Hgb Conc 27.9 g/dL (32-36); Mean Corpuscular Volume 94.5 fL (80-100); Mean Platelet Volume 11.7 fL (7.4-10.4); Monocytes # (auto) 1.19 K/uL (0.11-0.59); Monocytes % (auto) 7.2 %; Neutrophils # (auto) 14.21 K/uL (1.4-6.5); Neutrophils % (auto) 85.9 %; Platelet Count 291 K/uL (130-400); RDW Coefficient of Variation 17.3 % (11.5-14.5); RDW Standard Deviation 59.7 fL (36.4-46.3); Red Blood Count 3.79 M/uL (4.7-6.1); White Blood Count 16.53 K/uL (4.8-10.8)
--- NOTE | 2022-01-16 07:10 | XRay Report ---
XR chest 1V portable CLINICAL HISTORY: Respiratory failure. COMPARISON STUDY: Chest CT January 15, 2022 and chest radiograph at 8:04 PM on January 15, 2022. FINDINGS: Tip of endotracheal tube is 4.3 cm above the keila. Tip of nasogastric tube is at least wi thin the proximal stomach. There are trace bilateral pleural effusions. Cardiomegaly is unchanged. Ri ght mid and lower lung airspace opacity persists. Pulmonary vascular congestion is unchanged. IMPRESSION: 1. Satisfactory positioning of the endotracheal tube. 2. Persistent right mid and lower lung airspace opacity which favors an infectious process or aspirat ion pneumonitis. ACT 112: Negative or not required by law. Electronically signed by: Donell Garrison M.D. 01/16/2022 7:09 AM
[2022-01-16] MEDS ORDERED: SODIUM PHOSPHATE 3 MMOL/1 ML INFUSION IV STA (07:25)
[2022-01-16] MEDS: ICU ELECTROLYTE REPLACEMENT PROTOCOL SCH ×2 (07:28→18:16)
[2022-01-16] MEDS: MAGNESIUM SULFATE / D5W 1 GM/100 ML BAG IV SCH ×2 (08:22→10:29)
[2022-01-16] MEDS: POTASSIUM CHLORIDE 20 MEQ/15 ML UDC NG SCH ×2 (08:22→11:23)
[2022-01-16] MEDS: QUEtiapine FUMARATE 25 MG TABLET PO SCH ×2 (08:40→20:36)
[2022-01-16] MEDS: METOPROLOL TARTRATE 25 MG TAB PO SCH ×2 (08:40→20:33)
[2022-01-16] MEDS: ASPIRIN 81 MG CHEW NG SCH (08:41)
[2022-01-16] MEDS: SERTRALINE HCL 100 MG TABLET PO SCH (08:41)
--- NOTE | 2022-01-16 08:50 | XRay Report ---
XR chest 1V portable CLINICAL HISTORY: Respiratory failure. COMPARISON STUDY: Chest radiograph and chest CT January 15, 2022. FINDINGS: Tip of endotracheal tube is 4.5 cm above the keila. Tip of nasogastric tube is below the l ower aspect of this image but at least within the body of the stomach. There are trace bilateral pleu ral effusions. Interstitial thickening is again noted. Right basilar opacity is again noted. No pneum othorax. IMPRESSION: 1. Satisfactory positioning of lines and tubes. 2. Persistent trace bilateral pleural effusions and right basilar opacity which may reflect an infect ious process or atelectasis. 3. Pulmonary vascular congestion, unchanged. ACT 112: Negative or not required by law. Electronically signed by: Donell Garrison M.D. 01/16/2022 8:49 AM
[2022-01-16] MEDS ORDERED: SODIUM PHOSPHATE 21 MMOL in DEXTROSE 5% 500 ML IV ONE (09:00)
--- NOTE | 2022-01-16 09:03 | XRay Report ---
KUB CLINICAL HISTORY: Orogastric Tube Removed and Replaced COMPARISON STUDY: KUB January 15, 2022 at 2:22 PM. FINDINGS: Tip of enteric tube projects over the gastric antrum. Visualized bowel gas pattern is unrem arkable. Trace bilateral pleural effusions with right basilar opacity are better depicted on chest ra diograph. Bilateral renal calculi are noted. IMPRESSION: Tip of enteric tube projects over the gastric antrum. ACT 112: Negative or not required by law. Electronically signed by: Donell Garrison M.D. 01/16/2022 9:02 AM
--- NOTE | 2022-01-16 09:29 | Critical Care Progress Note ---
Date of Service January 16, 2022 Assessment & Plan (1) Acute hypoxemic respiratory failure: (2) Hypercapnic respiratory failure: (3) Encephalopathy: Plan: Impression: 71-year-old male with history of obesity, possible obstructive lung disease, dementia, seizure disorder, and potential sleep disordered breathing admitted with hypoxemic and hypercarbic respiratory failure requiring intubation mechanical ventilation. Recommendations: 1. Neurologic: Intermittently following commands. This is been a recurrent issue with the patient and he had tracheostomy placed previously. No evidence of seizure activity, continue his home antiepileptic medications. No indication for EEG monitoring currently. Continue Aricept. 2. Respiratory: Hypoxemic and hypercarbic respiratory failure. Unclear if this represents obesity hypoventilation syndrome, neuromuscular weakness, or other etiology of hypercarbic respiratory failure. pH normalized. Given his markedly elevated bicarb, I suspect that he has chronic hypercarbic respiratory failure. He does not appear to be a great candidate for tracheostomy so hopefully we can get him extubated. Sputum culture is pending. Will likely require long-term noninvasive nocturnal positive airway pressure. Await theophylline level. 3. Cardiovascular: Tachycardia. Increase from 12.5 to 25 metoprolol. 4. Renal: No current issues. Electrolyte replacement protocol. Acid-base status demonstrates acute on chronic respiratory acidosis. Continue oral Lasix: held 5. ID: Zosyn. Discontinue vancomycin: Negative nasal swab. - Fever: tylenol PRN 6. GI: N.p.o. for now. Until attempt at weaning and clarify goals of care 7. Endocrine: Glycemic control per ICU protocol. 8. Heme-onc: No current issues. DVT prophylaxis: increase to BID lovenox Patient is critically ill. Admission and Anticipated Discharge Date Admission Date: January 15, 2022 Review of Systems Review of Systems: Unobtainable due to endotracheal tube Results & Data Results & Data ([facility]) Vital Signs (Past 12 Hours) Vital Signs Temp Pulse Resp BP Pulse Ox 01/16/22 09:01 38.2 C H 132 H 21 119/71 94 01/16/22 09:00 38.2 C H 134 H 22 93 01/16/22 08:30 128 H 23 96 01/16/22 08:01 118 H 26 H 133/85 95 01/16/22 08:00 117 H 20 95 01/16/22 07:40 119 H 18 98 01/16/22 07:30 116 H 24 95 01/16/22 07:01 115 H 18 126/89 98 01/16/22 07:00 116 H 19 98 01/16/22 06:50 113 H 19 98 01/16/22 06:45 119 H 22 98 01/16/22 06:40 116 H 21 98 01/16/22 06:35 116 H 29 H 99 01/16/22 06:30 115 H 21 99 01/16/22 06:25 117 H 19 98 01/16/22 06:20 116 H 22 99 01/16/22 06:15 118 H 23 98 01/16/22 06:10 116 H 29 H 98 01/16/22 06:05 114 H 20 98 01/16/22 06:01 118 H 21 123/90 98 01/16/22 06:00 119 H 21 98 01/16/22 05:55 120 H 20 97 01/16/22 05:50 118 H 18 98 01/16/22 05:45 121 H 22 98 01/16/22 05:40 116 H 22 98 01/16/22 05:35 118 H 17 98 01/16/22 05:30 118 H 18 97 01/16/22 05:25 119 H 16 97 01/16/22 05:20 116 H 25 H 97 01/16/22 05:15 118 H 27 H 97 01/16/22 05:10 116 H 18 97 01/16/22 05:05 118 H 18 97 01/16/22 05:01 115 H 17 121/79 96 01/16/22 05:00 117 H 23 97 01/16/22 04:55 118 H 25 H 96 01/16/22 04:50 118 H 24 97 01/16/22 04:45 118 H 19 97 01/16/22 04:40 117 H 26 H 97 01/16/22 04:35 119 H 29 H 97 01/16/22 04:30 116 H 20 97 01/16/22 04:25 117 H 25 H 97 01/16/22 04:20 118 H 16 97 01/16/22 04:15 116 H 24 97 01/16/22 04:10 118 H 21 97 01/16/22 04:05 37.3 C 116 H 19 97 01/16/22 04:00 115 H 16 114/82 96 01/16/22 03:59 116 H 16 94 01/16/22 03:55 117 H 16 98 01/16/22 03:50 117 H 16 96 01/16/22 03:45 116 H 24 96 01/16/22 03:40 116 H 22 98 01/16/22 03:35 117 H 18 95 01/16/22 03:30 120 H 16 94 01/16/22 03:25 123 H 16 94 01/16/22 03:20 120 H 16 94 01/16/22 03:15 122 H 16 95 01/16/22 03:10 124 H 16 95 01/16/22 02:15 123 H 18 93 01/16/22 02:10 121 H 24 93 01/16/22 02:05 120 H 24 93 01/16/22 02:00 121 H 21 105/81 93 01/16/22 01:55 123 H 22 93 01/16/22 01:50 120 H 21 93 01/16/22 01:45 122 H 16 93 01/16/22 01:40 121 H 16 94 01/16/22 01:35 122 H 19 93 01/16/22 01:30 121 H 24 94 01/16/22 01:25 122 H 24 94 01/16/22 01:20 123 H 22 94 01/16/22 01:15 123 H 24 93 01/16/22 01:10 124 H 22 93 01/16/22 01:05 124 H 26 H 93 01/16/22 01:01 125 H 22 99/82 L 93 01/16/22 01:00 125 H 20 93 01/16/22 00:55 125 H 18 92 01/16/22 00:50 125 H 18 92 01/16/22 00:45 122 H 20 92 01/16/22 00:40 122 H 19 93 01/16/22 00:37 120 H 01/16/22 00:35 125 H 14 92 01/16/22 00:30 124 H 18 91 01/16/22 00:25 125 H 14 91 01/16/22 00:20 121 H 21 91 01/16/22 00:15 118 H 20 91 01/16/22 00:10 120 H 23 93 01/16/22 00:08 37.3 C 01/16/22 00:05 117 H 16 96 01/16/22 00:03 18 95 01/16/22 00:00 118 H 13 116/71 93 01/15/22 23:55 117 H 15 93 01/15/22 23:50 117 H 23 93 01/15/22 23:45 118 H 21 93 01/15/22 23:40 115 H 18 93 01/15/22 23:35 115 H 20 93 01/15/22 23:30 114 H 18 93 01/15/22 23:25 116 H 22 93 01/15/22 23:20 117 H 27 H 89 L 01/15/22 23:15 115 H 20 90 01/15/22 23:10 115 H 18 92 01/15/22 23:05 119 H 18 92 01/15/22 23:00 120 H 24 108/77 92 01/15/22 22:55 122 H 17 92 01/15/22 22:50 125 H 20 92 01/15/22 22:45 124 H 21 92 01/15/22 22:40 125 H 20 93 01/15/22 22:35 128 H 17 92 01/15/22 22:14 123 H 16 95 01/15/22 22:00 124 H 14 96/74 L 97 01/15/22 21:55 123 H 16 98 01/15/22 21:50 121 H 12 94 01/15/22 21:45 123 H 19 94 01/15/22 21:40 123 H 17 94 01/15/22 21:35 123 H 16 94 01/15/22 21:30 123 H 18 95 Critical Care Results & Data Vital Signs (Past 12 Hours) Vital Signs Temp Pulse Resp BP Pulse Ox 01/16/22 09:01 38.2 C H 132 H 21 119/71 94 01/16/22 09:00 38.2 C H 134 H 22 93 01/16/22 08:30 128 H 23 96 01/16/22 08:01 118 H 26 H 133/85 95 01/16/22 08:00 117 H 20 95 01/16/22 07:40 119 H 18 98 01/16/22 07:30 116 H 24 95 01/16/22 07:01 115 H 18 126/89 98 01/16/22 07:00 116 H 19 98 01/16/22 06:50 113 H 19 98 01/16/22 06:45 119 H 22 98 03/14/22 06:40 116 H 21 98 01/16/22 06:35 116 H 29 H 99 01/16/22 06:30 115 H 21 99 01/16/22 06:25 117 H 19 98 01/16/22 06:20 116 H 22 99 01/16/22 06:15 118 H 23 98 01/16/22 06:10 116 H 29 H 98 01/16/22 06:05 114 H 20 98 01/16/22 06:01 118 H 21 123/90 98 01/16/22 06:00 119 H 21 98 01/16/22 05:55 120 H 20 97 01/16/22 05:50 118 H 18 98 01/16/22 05:45 121 H 22 98 01/16/22 05:40 116 H 22 98 01/16/22 05:35 118 H 17 98 01/16/22 05:30 118 H 18 97 01/16/22 05:25 119 H 16 97 01/16/22 05:20 116 H 25 H 97 01/16/22 05:15 118 H 27 H 97 01/16/22 05:10 116 H 18 97 01/16/22 05:05 118 H 18 97 01/16/22 05:01 115 H 17 121/79 96 01/16/22 05:00 117 H 23 97 01/16/22 04:55 118 H 25 H 96 01/16/22 04:50 118 H 24 97 01/16/22 04:45 118 H 19 97 01/16/22 04:40 117 H 26 H 97 01/16/22 04:35 119 H 29 H 97 01/16/22 04:30 116 H 20 97 01/16/22 04:25 117 H 25 H 97 01/16/22 04:20 118 H 16 97 01/16/22 04:15 116 H 24 97 01/16/22 04:10 118 H 21 97 01/16/22 04:05 37.3 C 116 H 19 97 01/16/22 04:00 115 H 16 114/82 96 01/16/22 03:59 116 H 16 94 01/16/22 03:55 117 H 16 98 01/16/22 03:50 117 H 16 96 01/16/22 03:45 116 H 24 96 01/16/22 03:40 116 H 22 98 01/16/22 03:35 117 H 18 95 01/16/22 03:30 120 H 16 94 01/16/22 03:25 123 H 16 94 01/16/22 03:20 120 H 16 94 01/16/22 03:15 122 H 16 95 01/16/22 03:10 124 H 16 95 01/16/22 02:15 123 H 18 93 01/16/22 02:10 121 H 24 93 01/16/22 02:05 120 H 24 93 01/16/22 02:00 121 H 21 105/81 93 01/16/22 01:55 123 H 22 93 01/16/22 01:50 120 H 21 93 01/16/22 01:45 122 H 16 93 01/16/22 01:40 121 H 16 94 01/16/22 01:35 122 H 19 93 01/16/22 01:30 121 H 24 94 01/16/22 01:25 122 H 24 94 01/16/22 01:20 123 H 22 94 01/16/22 01:15 123 H 24 93 01/16/22 01:10 124 H 22 93 01/16/22 01:05 124 H 26 H 93 01/16/22 01:01 125 H 22 99/82 L 93 01/16/22 01:00 125 H 20 93 01/16/22 00:55 125 H 18 92 01/16/22 00:50 125 H 18 92 01/16/22 00:45 122 H 20 92 01/16/22 00:40 122 H 19 93 01/16/22 00:37 120 H 01/16/22 00:35 125 H 14 92 01/16/22 00:30 124 H 18 91 01/16/22 00:25 125 H 14 91 01/16/22 00:20 121 H 21 91 01/16/22 00:15 118 H 20 91 01/16/22 00:10 120 H 23 93 01/16/22 00:08 37.3 C 01/16/22 00:05 117 H 16 96 01/16/22 00:03 18 95 01/16/22 00:00 118 H 13 116/71 93 01/15/22 23:55 117 H 15 93 01/15/22 23:50 117 H 23 93 01/15/22 23:45 118 H 21 93 03/13/22 23:40 115 H 18 93 01/15/22 23:35 115 H 20 93 01/15/22 23:30 114 H 18 93 01/15/22 23:25 116 H 22 93 01/15/22 23:20 117 H 27 H 89 L 01/15/22 23:15 115 H 20 90 01/15/22 23:10 115 H 18 92 01/15/22 23:05 119 H 18 92 01/15/22 23:00 120 H 24 108/77 92 01/15/22 22:55 122 H 17 92 01/15/22 22:50 125 H 20 92 01/15/22 22:45 124 H 21 92 01/15/22 22:40 125 H 20 93 01/15/22 22:35 128 H 17 92 01/15/22 22:14 123 H 16 95 01/15/22 22:00 124 H 14 96/74 L 97 01/15/22 21:55 123 H 16 98 01/15/22 21:50 121 H 12 94 01/15/22 21:45 123 H 19 94 01/15/22 21:40 123 H 17 94 01/15/22 21:35 123 H 16 94 01/15/22 21:30 123 H 18 95 Lab & Micro Results (Past 24 Hours) RBC 3.79 M/uL (4.7-6.1) L 01/16/22 WBC 16.53 K/uL (4.8-10.8) H 01/16/22 Hgb 10.0 g/dL (14.0-18.0) L 01/16/22 Hct 35.8 % (42-52) L 01/16/22 MCV 94.5 fL (80-100) 01/16/22 MCH 26.4 pg (25-34) 01/16/22 MCHC 27.9 g/dL (32-36) L 01/16/22 RDW Standard Deviation 59.7 fL (36.4-46.3) H 01/16/22 RDW Coefficient of Variation 17.3 % (11.5-14.5) H 01/16/22 Plt Count 291 K/uL (130-400) 01/16/22 MPV 11.7 fL (7.4-10.4) H 01/16/22 Neutrophils (%) (Auto) 85.9 % 01/16/22 Lymphocytes (%) (Auto) 6.5 % 01/16/22 Monocytes # (Auto) 1.19 K/uL (0.11-0.59) H 01/16/22 Eosinophils # (Auto) 0.00 K/uL (0-0.5) 01/16/22 Immature Granulocyte % (Auto) 0.4 % 01/16/22 Neutrophils # (Auto) 14.21 K/uL (1.4-6.5) H 01/16/22 Lymphocytes # (Auto) 1.07 K/uL (1.2-3.4) L 01/16/22 Monocytes # (Auto) 1.19 K/uL (0.11-0.59) H 01/16/22 Eosinophils # (Auto) 0.00 K/uL (0-0.5) 01/16/22 Basophils # (Auto) 0.00 K/uL (0-0.2) 01/16/22 Immature Granulocyte # (Auto) 0.06 K/uL (0.00-0.02) H 01/16/22 Na 142 mmol/L (136-145) 01/16/22 K 3.3 mmol/L (3.5-5.1) L 01/16/22 Cl 95 mmol/L (98-107) L 01/16/22 CO2 39 mmol/L (21-32) H 01/16/22 Anion Gap 8 (3-11) 01/16/22 BUN 21 mg/dl (6-23) 01/16/22 Creatinine 0.73 mg/dl (0.6-1.4) 01/16/22 Estimated GFR ( Amer) 109.7 ml/min 01/16/22 Estimated GFR (Non-Af Amer) 94.6 ml/min 01/16/22 BUN/Creatinine Ratio 28.8 (10-20) H 01/16/22 Glu 211 mg/dl (70-99(Fasting)) H 01/16/22 Ca 9.1 mg/dl (8.5-10.1) 01/16/22 Phosphorus Level 1.7 mg/dl (2.5-4.9) L 01/16/22 Mg 1.8 mg/dl (1.7-2.4) 01/16/22 04:47 01/16/22 Calcium Level 9.1 mg/dl (8.5-10.1) 01/16/22 04:47 01/16/22 [place] Test Pass 01/16/22 03:54 01/16/22 Microbiology 01/15/22 13:05 Gram Stain - Final Sputum,Vent Suction Diagnostic Findings (Past 24 Hours) Chest X-Ray 01/15/22 10:37 XR chest 1V portable HISTORY: 71 years-old Male SEPSIS acute sepsis COMPARISON: Chest radiograph 10/07/2021 TECHNIQUE: Portable AP view of the chest FINDINGS: Cardiac silhouette is enlarged. Small layering pleural effusions with mild bibasilar opacities. Pulmonary vascular congestion with interstitial coarsening. No pneumothorax. Degenerative changes of the shoulders and spine. IMPRESSION: 1. Cardiomegaly with pulmonary edema. 2. Small layering pleural effusions with right greater than left bibasilar opacities. ACT 112: Negative or not required by law. The above report was generated using voice recognition software. It may contain grammatical, syntax or spelling errors. Electronically signed by: Cayetano Puckett M.D. 01/15/2022 10:52 AM Chest CTA 01/15/22 10:54 CT angio chest PE protocol CT DOSE: 1428.29 mGy.cm HISTORY: 71 years-old Male with PE. Acute shortness of breath with altered mental status TECHNIQUE: Multiple CTA images of the chest were obtained after the intravenous administration of 119 ml Optiray. Coronal and sagittal MIPS were obtained from the axial data set and were submitted for review. All measurements were obtained according to NASCET criteria. A dose lowering technique was utilized adhering to the principles of ALARA. COMPARISON: Chest radiograph of same day, CTA chest 10/06/2021 FINDINGS: CTA: Mildly moderate cardiac enlargement. Trace pericardial effusion. Moderate coronary artery calcifications. No thoracic aortic aneurysm or dissection. There is patency of the imaged great vessels. Mild descending thoracic aortic tortuosity. Dilated pulmonary artery suggests pulmonary arterial hypertension. CT CHEST: No thyroid nodules. Mediastinal adenopathy redemonstrated. Index right paratracheal lymph node measures 2.3 x 1.6 cm 0.5 x 2.1 cm. A 2.1 x 1.5 cm lymph node on image 213 previously measured 2.0 x 1.7 cm. Mild right hilar adenopathy is likely stable. Trace left and small right pleural effusions. No pneumothorax. Emphysema. Intralobular septal with bronchial wall thickening. Tracheobronchial secretions with mucous plugging most pronounced within the right lung base. There is consolidation with volume loss of the right lower lobe. Patchy groundglass and consolidative opacities are noted within the right greater than left upper lobes. Linear left basilar opacities favor atelectasis. The spleen and liver appear enlarged. There is suggested hepatic steatosis. Gynecomastia. Degenerative changes of the shoulders and spine. IMPRESSION: 1. Cardiomegaly with emphysema and suggestion of mild pulmonary edema. No pulmonary emboli. 2. Trace left and small right pleural effusions. 3. Tracheobronchial secretions with mucous plugging most pronounced within the right lower lobe. Patchy opacities, greatest throughout the right lung with dense consolidation and atelectasis of the right lower lobe. Findings are suspicious for aspiration pneumonia with right lower lobe mucous plug. 4. Mediastinal adenopathy, similar to mildly improved from prior. 5. Pulmonary arterial hypertension ACT 112: Negative or not required by law. The above report was generated using voice recognition software. It may contain grammatical, syntax or spelling errors. Electronically signed by: Cayetano Puckett M.D. 01/15/2022 12:[address] 01/15/22 11:11 CT head/brain wo con CLINICAL HISTORY: 71 years-old Male with ams. Acutely altered mental status TECHNIQUE: Multiple axial CT images of the head were obtained without contrast. A dose lowering technique was utilized adhering to the principles of ALARA. COMPARISON: None. FINDINGS: No acute intracranial hemorrhage, midline shift, intracranial mass, hydrocephalus, territorial ischemia or abnormal extra-axial collection. Minimal involutional changes. Mild white matter hypodensities suggest chronic microvascular ischemic disease. The calvarium is intact. The paranasal sinuses, mastoid air cells, and middle ear cavities are clear. IMPRESSION: No acute intracranial abnormality. ACT 112: Negative or not required by law. The above report was generated using voice recognition software. It may contain grammatical, syntax or spelling errors. Electronically signed by: Cayetano Puckett M.D. 01/15/2022 12:17 PM Chest X-Ray 01/15/22 12:32 XR chest 1V portable HISTORY: 71 years-old Male ett acute respiratory failure COMPARISON: Chest radiograph and CTA chest studies of same day TECHNIQUE: Portable AP view of the chest FINDINGS: Cardiac silhouette is enlarged. Status post placement of an endotracheal tube, distal tip terminating 4.6 cm superior to the keila. Trace left and small right pleural effusions with right lung base airspace opacities and volume loss. Degenerative changes of the shoulders and spine. No pneumothorax. Emphysema. Suggestion of mild pulmonary edema. Bones appear grossly intact. IMPRESSION: 1. Status post placement of an endotracheal tube, distal tip terminating 4.6 cm superior to the keila. 2. Trace left and small right pleural effusions. 3. Airspace opacities of the right lung redemonstrated. 4. Cardiomegaly with mild pulmonary edema. ACT 112: Negative or not required by law. The above report was generated using voice recognition software. It may contain grammatical, syntax or spelling errors. Electronically signed by: Cayetano Puckett M.D. 01/15/2022 12:51 PM KUB X-Ray 01/15/22 14:35 KUB HISTORY: Status post placement of an endotracheal tube Confirm OGT placement COMPARISON: Chest radiograph of same day at 12:19 PM. FINDINGS: The heart is enlarged. Layering pleural effusions with bibasilar densities. The endotracheal tube terminates approximately 4.6 cm superior to the keila. Distal tip of enteric tube projects over the gastric body. Contrast noted within the renal collecting systems. The lower abdomen is excluded from the [id number]. Nonobstructive bowel gas pattern. No renal calculi. No ureteral calculi. No pneumoperitoneum or pneumatosis. No fracture. IMPRESSION: Distal tip of enteric tube projects over the gastric body. ACT 112: Negative or not required by law. The above report was generated using voice recognition software. It may contain grammatical, syntax or spelling errors. Electronically signed by: Cayetano Puckett M.D. 01/15/2022 2:52 PM Chest X-Ray 01/15/22 20:05 XR chest 1V portable CLINICAL HISTORY: Respiratory failure. COMPARISON STUDY: Chest radiograph and chest CT January 15, 2022. FINDINGS: Tip of endotracheal tube is 4.5 cm above the keila. Tip of nasogastric tube is below the lower aspect of this image but at least within the body of the stomach. There are trace bilateral pleural effusions. Interstitial thickening is again noted. Right basilar opacity is again noted. No pneumothorax. IMPRESSION: 1. Satisfactory positioning of lines and tubes. 2. Persistent trace bilateral pleural effusions and right basilar opacity which may reflect an infectious process or atelectasis. 3. Pulmonary vascular congestion, unchanged. ACT 112: Negative or not required by law. Electronically signed by: Donell Garrison M.D. 01/16/2022 8:49 AM KUB X-Ray 01/15/22 21:24 KUB CLINICAL HISTORY: Orogastric Tube Removed and Replaced COMPARISON STUDY: KUB January 15, 2022 at 2:22 PM. FINDINGS: Tip of enteric tube projects over the gastric antrum. Visualized bowel gas pattern is unremarkable. Trace bilateral pleural effusions with right basilar opacity are better depicted on chest radiograph. Bilateral renal calculi are noted. IMPRESSION: Tip of enteric tube projects over the gastric antrum. ACT 112: Negative or not required by law. Electronically signed by: Donell Garrison M.D. 01/16/2022 9:02 AM Chest X-Ray 01/16/22 07:00 XR chest 1V portable CLINICAL HISTORY: Respiratory failure. COMPARISON STUDY: Chest CT January 15, 2022 and chest radiograph at 8:04 PM on January 15, 2022. FINDINGS: Tip of endotracheal tube is 4.3 cm above the keila. Tip of nasogastric tube is at least within the proximal stomach. There are trace bilateral pleural effusions. Cardiomegaly is unchanged. Right mid and lower lung airspace opacity persists. Pulmonary vascular congestion is unchanged. IMPRESSION: 1. Satisfactory positioning of the endotracheal tube. 2. Persistent right mid and lower lung airspace opacity which favors an infectious process or aspiration pneumonitis. ACT 112: Negative or not required by law. Electronically signed by: Donell Garrison M.D. 01/16/2022 7:09 AM I & O Totals 24 Hours 01/15/22 01/16/22 01/17/22 06:59 06:59 06:59 Intake Total 1284.700 / 1284.700 680 / 680 Output Total 460 / 460 100 / 100 Balance 824.700 / 824.700 580 / 580 Cumulative 01/15/22 10:18 thru 01/16/22 09:27 Intake Total 1964.700 Output Total 560 Balance 1404.700 RT Ventilator Mngmt (Last Documented) Ventilator Ordered Settings Ventilator Support Mode Assist Control 01/16/22 07:40 Respiratory Rate 21 01/16/22 09:01 Ventilator Tidal Volume 400 01/16/22 07:40 Setting Minute Ventilation 7.2 01/16/22 07:40 Ventilator Positive Pressure 10 01/15/22 16:00 Support Setting Positive End Expiratory 8 01/16/22 08:00 Pressure Fraction of Inspired Oxygen 40 01/16/22 08:04 Machine Comment weaned peep to 8 01/16/22 07:57 Ventilator - PT Measurements Respiratory Rate 21 Exhaled Tidal Volume 400 Minute Ventilation 7.2 Peak Inspiratory Airway 23 Pressure Plateau Pressure 19 Respiratory Cycle Inspiratory: 1:2.6 Expiratory Ratio Inspiratory Phase Time 0.80 End-Tidal CO2 38 Static Lung Compliance 44.44 Dynamic Lung Compliance 30.77 Normal Static Lung Compliance 47.00 Patient Measurements Comment No changes made off of ABG results. Coding Level of Care Code Critical Care 1st 30-74 mins Diagnoses Acute hypoxemic respiratory failure J96.01 Hypercapnic respiratory failure J96.92 Encephalopathy G93.40
[2022-01-16] MEDS ORDERED: ACETAMINOPHEN SUSP 325 MG/10.15 ML UDC OG PRN (10:11)
[2022-01-16] MEDS: INSULIN ASPART PER UNIT SC SCH ×3 (11:23→20:32)
[2022-01-16] MEDS: PANTOprazole 40 MG in SYRINGE 0 ML IV SCH (11:23)
[2022-01-16] MEDS: VALPROIC ACID 50 MG/ML UDP PEG SCH ×2 (11:25→18:16)
[2022-01-16] MEDS: DOCUSATE SODIUM 100 MG CAP PO SCH (11:47)
[2022-01-16] MEDS: ENOXAPARIN INJ 40 MG/0.4 ML SYR SQ SCH ×2 (11:49→21:40)
[2022-01-16] MEDS ORDERED: INSULIN GLARGINE SOLOSTAR 100 UNITS/ML 3 ML PEN SC ONE (12:00)
[2022-01-16] MEDS ORDERED: METOPROLOL TARTRATE 25 MG TAB PO ONE (12:00)
--- NOTE | 2022-01-16 15:57 | Hospitalist Progress Note ---
Date of Service January 16, 2022 Assessment & Plan (1) Acute hypoxemic respiratory failure: Plan: Dale Junior is a 71-year-old male with a past medical history of chronic respiratory failure with recurrent aspiration with required ventilation while at [facility] and eventually required trach placement at [place] with peg tube placement and removal last July 2021 per pts , COPD, seizure, HLD, HTN, diabetes, and dementia. Acute on chronic hypoxemic hypercarbic respiratory failure Chronic hypercarbic respiratory failure, AMBERLY versus obesity hypoventilation. Patient has refused CPAP at [facility]. Hx of recurrent aspiration and recent hospital admisison for asp PNA with lobar collapse. Blood gas acute on chronic respiratory acidosis ?underlying metabolic alkalosis. Even if patient improves from his acute exacerbation will need CPAP/BiPAP at baseline as he is highly likely to have progressive hypercapnia with worsening sedation/ams and at risk for additional worsening with aspiration On admission hypoxic to SPO2 55, initial VBG pH 7.13, PCO2 134, PO2 51, HCO3 44. BMP bicarb>45. Acute on chronic hypercarbic, hypoxic respiratory failure Borderline leukocytosis but NLR >10 Procalcitonin normal, 0.17 CT-C: Cardiomegaly with emphysema and suggestion of mild pulmonary edema. No pulmonary emboli. Trace left and small right pleural effusions. Tracheobronchial secretions with mucous plugging most pronounced within the right lower lobe. Patchy opacities, greatest throughout the right lung with dense consolidation and atelectasis of the right lower lobe. Findings are suspicious for aspiration pneumonia with right lower lobe mucous plug. Mediastinal adenopathy, similar to mildly improved from prior. Pulmonary arterial hypertension - CH-H: naf Covid negative Received 40 mg Solu-Medrol in ER. Defer additional steroids at this time. MRSA nare negative, vancomycin discontinued Continued on Zosyn for potential aspiration pneumonia Leukocytosis to 16.53, neutrophil lymphocyte ratio approximately 14 Intubated and ventilated. Initially AC/VC VT 440, PEEP 5, FiO2 35. PEEP increased overnight to 10 then weaned to 8, pt with vent trial and Pressure support --> CPAP throughout day. ICU consulted appreciate management and care Sedation per ICU PPI daily Family meeting 01/16. Anticipate trial of extubation today goals of care should patient continue to worsen either now or in the future being discussed. (2) Aspiration pneumonia of right lower lobe: Plan: As above (3) Dementia: Plan: Likely acutely worsened by hyper cardiac encephalopathy UDS negative - CT-H naf (4) Diabetes: Plan: ICU hyperglycemic protocol (5) Encephalopathy: Plan: See above (6) HLD (hyperlipidemia): Plan: Continue atorvastatin via NG (7) HTN (hypertension): Plan: Toprol increased to 25 mg twice daily (8) Hypercapnic respiratory failure: Plan: As above (9) Seizure: Plan: Divalproex currently held while n.p.o. On valproic acid 125 mg every 6 hours via PEG (10) Anxiety and depression: Plan: [employer] sertraline 100 p.o. daily (11) CHF (congestive heart failure): Plan: Metoprolol as above Continue aspirin daily -Admitting EKG: sinus tachycardia w/ PVC, 1* AVB QTc 405 - No echo on file - Plan: DVT prophylaxis: Lovenox Diet: N.p.o., intubated. CODE STATUS: Full code Disposition: ICU Admission and Anticipated Discharge Date Admission Date: January 15, 2022 Subjective Limited by ETT Review of Systems Review of Systems: Unobtainable due to endotracheal tube Physical Exam Physical Exam: General: Sedated, ETT in place. Opens eyes to vigorous stimulation and name, does not follow commands. HEENT: Post tracheostomy scar well-healed, remains present on neck. Opens eyes as above, pupils equal and reactive to light. Pulm: ETT in place, on AC/VC in the morning on reassessment trial of pressure support. Diminished, coarse in the bases, symmetrical chest rise. No increase in work of breathing. No respiratory distress. Cardiac: Regular, tachycardic, -mrg. Radial pulses intact and symmetrical. Abdominal: Nontender, nondistended, soft. BS present. Results & Data Results & Data ([facility]) Vital Signs (Past 12 Hours) Vital Signs Temp Pulse Pulse Resp BP Pulse Ox 01/16/22 13:03 100 H 20 93 01/16/22 10:40 112 H 15 93 01/16/22 10:35 113 H 20 95 01/16/22 09:01 38.2 C H 132 H 21 119/71 94 01/16/22 09:00 38.2 C H 134 H 22 93 01/16/22 08:30 128 H 23 96 01/16/22 08:01 118 H 26 H 133/85 95 01/16/22 08:00 117 H 20 95 01/16/22 07:40 119 H 18 98 01/16/22 07:30 116 H 24 95 01/16/22 07:01 115 H 18 126/89 98 01/16/22 07:00 116 H 19 98 01/16/22 06:50 113 H 19 98 01/16/22 06:45 119 H 22 98 01/16/22 06:40 116 H 21 98 01/16/22 06:35 116 H 29 H 99 01/16/22 06:30 115 H 21 99 01/16/22 06:25 117 H 19 98 01/16/22 06:20 116 H 22 99 01/16/22 06:15 118 H 23 98 01/16/22 06:10 116 H 29 H 98 01/16/22 06:05 114 H 20 98 01/16/22 06:01 118 H 21 123/90 98 01/16/22 06:00 119 H 21 98 01/16/22 05:55 120 H 20 97 01/16/22 05:50 118 H 18 98 01/16/22 05:45 121 H 22 98 01/16/22 05:40 116 H 22 98 01/16/22 05:35 118 H 17 98 01/16/22 05:30 118 H 18 97 01/16/22 05:25 119 H 16 97 01/16/22 05:20 116 H 25 H 97 01/16/22 05:15 118 H 27 H 97 01/16/22 05:10 116 H 18 97 01/16/22 05:05 118 H 18 97 01/16/22 05:01 115 H 17 121/79 96 01/16/22 05:00 117 H 23 97 01/16/22 04:55 118 H 25 H 96 01/16/22 04:50 118 H 24 97 01/16/22 04:45 118 H 19 97 01/16/22 04:40 117 H 26 H 97 01/16/22 04:35 119 H 29 H 97 01/16/22 04:30 116 H 20 97 01/16/22 04:25 117 H 25 H 97 01/16/22 04:20 118 H 16 97 01/16/22 04:15 116 H 24 97 01/16/22 04:10 118 H 21 97 01/16/22 04:05 37.3 C 116 H 19 97 01/16/22 04:00 115 H 16 114/82 96 01/16/22 03:59 116 H 16 94 01/16/22 03:55 117 H 16 98 01/16/22 03:50 117 H 16 96 PG Care Time/CCT Total # of Minutes Spent Total Time Spent with Patient: Total time spent is greater than 50% in coordination of care (as documented) at patient's floor/unit and/or counseling patient: Coding Level of Care Code 19426 Subseq Hosp Care Lvl 2 Diagnoses Acute hypoxemic respiratory failure J96.01 Aspiration pneumonia of right lower lobe J69.0 Aspiration pneumonia type: unspecified Dementia F03.90 Diabetes E11.9 Encephalopathy G93.40 HLD (hyperlipidemia) E78.5 HTN (hypertension) I10 Hypercapnic respiratory failure J96.92 Seizure R56.9 Anxiety and depression F41.9; F32.A CHF (congestive heart failure) I50.9 (1) Aspiration pneumonia of right lower lobe Aspiration pneumonia type: unspecified Qualified Code(s): J69.0 - Pneumonitis due to inhalation of food and vomit
[2022-01-16 18:05] LABS: BUN Creatinine Ratio 28.4 (10-20); Calcium 9.4 mg/dl (8.5-10.1); Creatinine Clr Calc Pharmacy 111.9 ml/min; Est GFR (African American) 105.1 ml/min; Est GFR (Non-African American) 90.7 ml/min; Potassium 3.6 mmol/L (3.5-5.1)
[2022-01-16] MEDS: POTASSIUM CHLORIDE / WTR 10 MEQ/100 ML PLCT IV SCH ×3 (20:14→22:57)
[2022-01-16] MEDS: ATORVASTATIN 40 MG TAB NG SCH (20:32)
[2022-01-16] MEDS: DOCUSATE SODIUM SYRUP 100 MG/10 ML UDC PO SCH (20:32)
[2022-01-16] MEDS: INSULIN GLARGINE SOLOSTAR 100 UNITS/ML 3 ML PEN SC SCH (20:36)
[2022-01-17] MEDS: ALBUT/IPRATROP 3MG/0.5MG NEB 3 ML VIAL INH SCH ×4 (00:05→19:03)
[2022-01-17] MEDS: INSULIN ASPART PER UNIT SC SCH ×5 (00:48→18:38)
[2022-01-17] MEDS: POTASSIUM CHLORIDE / WTR 10 MEQ/100 ML PLCT IV SCH ×3 (00:48→13:33)
[2022-01-17] MEDS: VALPROIC ACID 50 MG/ML UDP PEG SCH ×4 (00:49→18:39)
[2022-01-17] MEDS: propofoL 1,000 MG/100 ML VIAL IV SCH ×2 (04:01→11:04)
[2022-01-17] MEDS: PIPERACILLIN/TAZOBACTAM 4.5 GM in DEXTROSE 5% 100 ML IV SCH (05:09)
[2022-01-17 06:03] LABS: Hematocrit (blood only) 34.2 % (42-52); Hemoglobin 9.8 g/dL (14.0-18.0); Mean Corpuscular Hemoglobin 26.3 pg (25-34); Mean Corpuscular Hgb Conc 28.7 g/dL (32-36); Mean Corpuscular Volume 91.9 fL (80-100); Platelet Count 260 K/uL (130-400); RDW Coefficient of Variation 17.6 % (11.5-14.5); RDW Standard Deviation 59.5 fL (36.4-46.3); Red Blood Count 3.72 M/uL (4.7-6.1); White Blood Count 11.25 K/uL (4.8-10.8)
[2022-01-17 06:19] LABS: Basophils # (auto) 0.01 K/uL (0-0.2); Basophils % (auto) 0.1 %; Eosinophils # (auto) 0.03 K/uL (0-0.5); Eosinophils % (auto) 0.3 %; Immature Granulocytes # (auto) 0.06 K/uL (0.00-0.02); Immature Granulocytes % (auto) 0.5 %; Lymphocytes # (auto) 1.29 K/uL (1.2-3.4); Lymphocytes % (auto) 11.5 %; Microcytosis Present; Monocytes # (auto) 0.73 K/uL (0.11-0.59); Monocytes % (auto) 6.5 %; Neutrophils # (auto) 9.13 K/uL (1.4-6.5); Neutrophils % (auto) 81.1 %
[2022-01-17 06:30] LABS: BUN Creatinine Ratio 29.4 (10-20); Calcium 9.5 mg/dl (8.5-10.1); Creatinine Clr Calc Pharmacy 133.3 ml/min; Est GFR (African American) 112.9 ml/min; Est GFR (Non-African American) 97.4 ml/min; Magnesium 2.1 mg/dl (1.7-2.4); Phosphorus 3.5 mg/dl (2.5-4.9); Potassium 3.4 mmol/L (3.5-5.1)
--- NOTE | 2022-01-17 07:10 | XRay Report ---
XR chest 1V portable CLINICAL HISTORY: evaluate ett placement and lung COMPARISON STUDY: Chest radiograph January 16, 2022. FINDINGS: The endotracheal and nasogastric tubes have been removed. There is no pneumothorax. Small r ight pleural effusion is noted. Blunting of left costophrenic angle is likely chronic. Right mid and lower lung airspace opacity is unchanged. Cardiomegaly is again noted. No evidence for pulmonary jacob a. IMPRESSION: 1. Interval removal of the endotracheal and nasogastric tubes. 2. Persistent right mid and lower lung airspace opacity which could reflect pneumonia or atelectasis. Radiographic follow-up is recommended. 3. Small right pleural effusion. ACT 112: Negative or not required by law. Electronically signed by: Donell Garrison M.D. 01/17/2022 7:08 AM
--- NOTE | 2022-01-17 09:46 | Critical Care Progress Note ---
Date of Service January 17, 2022 Assessment & Plan (1) Acute hypoxemic respiratory failure: (2) Hypercapnic respiratory failure: (3) Encephalopathy: Plan: Impression: 71-year-old male with history of obesity, possible obstructive lung disease, dementia, seizure disorder, and potential sleep disordered breathing admitted with hypoxemic and hypercarbic respiratory failure requiring intubation mechanical ventilation. Recommendations: 1. Neurologic: Following commands. This is been a recurrent issue with the patient and he had tracheostomy placed previously. No evidence of seizure activity, continue his home antiepileptic medications. 2. Respiratory: Hypoxemic and hypercarbic respiratory failure. Unclear if this represents obesity hypoventilation syndrome, neuromuscular weakness, or other etiology of hypercarbic respiratory failure. pH normalized. Given his markedly elevated bicarb, I suspect that he has chronic hypercarbic respiratory failure. Sputum culture has moderate normal jo ann. Will likely require long-term noninvasive nocturnal positive airway pressure. -Significant oxygen desaturation when sleeping -Await theophylline level. 3. Cardiovascular: Tachycardia. 25 mg metoprolol. 4. Renal: No current issues. Electrolyte replacement protocol. Acid-base status demonstrates acute on chronic respiratory acidosis. 5. ID: Zosyn transition to rocephin for 7 days empiric coverage for pulmonary source discontinue vancomycin: Negative nasal swab. - Fever: tylenol PRN 6. GI: N.p.o. for now. Until seen by speech, patient would likely not want PEG tube, may benefit from NG tube 7. Endocrine: Glycemic control per ICU protocol. 8. Heme-onc: No current issues. DVT prophylaxis: increase to BID lovenox Discussed with family goals of care, would not want heroics in event of cardiac arrest. Would not want reintubation in event of respiratory insufficiency, DNR/DNI updated code status. Stable for downgrade from ICU. Admission and Anticipated Discharge Date Admission Date: January 15, 2022 Subjective Following simple commands Physical Exam Physical Exam: General: Alert. nontoxic. Skin: Warm, dry, Head: Atraumatic Ears, nose, mouth and throat: airway patent, BiPAP mask in place Cardiovascular: Normal peripheral perfusion Respiratory: no respiratory distress Gastrointestinal: Non distended Musculoskeletal: No deformity Results & Data Results & Data ([facility]) Vital Signs (Past 12 Hours) Vital Signs Temp Pulse Pulse Resp BP Pulse Ox 01/17/22 09:28 102 H 26 H 96 01/17/22 07:43 99 H 96 H 26 H 92 01/17/22 07:30 37.1 C 100 H 21 92 01/17/22 07:25 37.1 C 103 H 21 91 01/17/22 07:20 37.1 C 97 H 24 90 01/17/22 07:15 37.1 C 101 H 22 91 01/17/22 07:10 37.1 C 98 H 21 89 L 01/17/22 07:05 37.1 C 111 H 26 H 92 01/17/22 07:01 37.1 C 100 H 22 153/97 H 92 01/17/22 07:00 37.1 C 98 H 25 H 91 01/17/22 06:55 37.1 C 22 90 01/17/22 06:50 37.1 C 98 H 21 91 01/17/22 06:45 37.1 C 98 H 20 01/17/22 06:40 37.1 C 105 H 25 H 91 01/17/22 06:35 37.1 C 101 H 22 92 01/17/22 06:30 37.1 C 107 H 27 H 92 01/17/22 06:25 37.1 C 107 H 25 H 92 01/17/22 06:20 37.2 C 99 H 27 H 91 01/17/22 06:15 37.2 C 102 H 26 H 91 01/17/22 06:13 37.1 C 102 H 25 H 90 01/17/22 06:00 37.1 C 98 H 22 91 01/17/22 05:55 37.1 C 95 H 23 92 01/17/22 05:50 37.1 C 95 H 18 91 01/17/22 05:45 37.1 C 99 H 24 91 01/17/22 05:40 37.1 C 95 H 23 90 01/17/22 05:35 37.1 C 98 H 21 90 01/17/22 05:30 37.1 C 94 H 22 89 L 01/17/22 05:25 37.1 C 94 H 26 H 90 01/17/22 05:20 37.1 C 96 H 23 90 01/17/22 05:15 37.1 C 123 H 22 90 01/17/22 05:10 37.1 C 101 H 24 90 01/17/22 05:05 37.1 C 97 H 23 88 L 01/17/22 05:01 37.1 C 98 H 22 139/88 90 01/17/22 05:00 37.1 C 102 H 22 91 01/17/22 04:55 37.1 C 99 H 24 90 01/17/22 04:50 37.1 C 98 H 24 90 01/17/22 04:45 37.1 C 101 H 25 H 89 L 01/17/22 04:40 37.1 C 99 H 22 90 01/17/22 04:35 37.1 C 100 H 24 89 L 01/17/22 04:30 37.1 C 97 H 23 92 01/17/22 04:25 37.1 C 96 H 23 91 01/17/22 04:20 37.1 C 98 H 25 H 90 01/17/22 04:15 37.1 C 101 H 23 91 01/17/22 04:10 37.1 C 97 H 23 91 01/17/22 04:05 37.1 C 99 H 22 91 01/17/22 04:01 37.1 C 99 H 23 134/82 90 01/17/22 04:00 37.1 C 95 H 22 90 01/17/22 03:55 37.1 C 101 H 23 91 01/17/22 03:53 37.1 C 108 H 27 H 90 01/17/22 03:45 37.1 C 98 H 27 H 89 L 01/17/22 03:40 37.1 C 98 H 22 92 01/17/22 03:35 37.1 C 102 H 23 90 01/17/22 03:30 37.1 C 98 H 22 90 01/17/22 03:25 37.1 C 101 H 22 88 L 01/17/22 03:20 37.1 C 105 H 23 90 01/17/22 03:15 37.1 C 98 H 23 91 01/17/22 03:10 37.1 C 99 H 24 90 01/17/22 03:05 37.1 C 101 H 21 92 01/17/22 03:00 37.1 C 98 H 24 129/79 90 01/17/22 02:55 37.1 C 101 H 24 91 01/17/22 02:50 37.2 C 101 H 25 H 91 01/17/22 02:45 37.1 C 104 H 23 91 22 02:40 37.1 C 103 H 22 92 01/17/22 02:35 37.2 C 101 H 26 H 91 01/17/22 02:30 37.2 C 101 H 19 90 01/17/22 02:25 37.2 C 97 H 22 90 01/17/22 02:20 37.2 C 103 H 23 91 01/17/22 02:15 37.2 C 99 H 25 H 91 01/17/22 02:12 102 H 27 H 91 01/17/22 02:10 37.1 C 101 H 21 92 01/17/22 02:05 37.2 C 100 H 23 01/17/22 02:01 37.2 C 101 H 23 115/79 90 01/17/22 02:00 37.1 C 97 H 24 01/17/22 01:55 37.1 C 99 H 24 90 01/17/22 01:50 37.2 C 97 H 25 H 90 01/17/22 01:45 37.2 C 104 H 27 H 01/17/22 01:40 37.2 C 103 H 24 01/17/22 01:35 37.1 C 108 H 22 01/17/22 01:30 37.1 C 101 H 24 01/17/22 01:25 37.1 C 101 H 25 H 01/17/22 01:20 37.1 C 104 H 24 01/17/22 01:15 37.1 C 106 H 22 01/17/22 01:10 37.1 C 106 H 25 H 01/17/22 01:05 37.1 C 101 H 20 94 01/17/22 00:05 103 H 24 92 01/17/22 00:00 105 H 01/16/22 22:09 108 H 27 H 92 Critical Care Results & Data Vital Signs (Past 12 Hours) Vital Signs Temp Pulse Pulse Resp BP Pulse Ox 01/17/22 09:28 102 H 26 H 96 01/17/22 07:43 99 H 96 H 26 H 92 01/17/22 07:30 37.1 C 100 H 21 92 01/17/22 07:25 37.1 C 103 H 21 01/17/22 07:20 37.1 C 97 H 24 90 01/17/22 07:15 37.1 C 101 H 22 91 01/17/22 07:10 37.1 C 98 H 21 89 L 01/17/22 07:05 37.1 C 111 H 26 H 92 01/17/22 07:01 37.1 C 100 H 22 153/97 H 92 01/17/22 07:00 37.1 C 98 H 25 H 91 01/17/22 06:55 37.1 C 22 90 01/17/22 06:50 37.1 C 98 H 21 91 01/17/22 06:45 37.1 C 98 H 20 91 01/17/22 06:40 37.1 C 105 H 25 H 91 01/17/22 06:35 37.1 C 101 H 22 92 01/17/22 06:30 37.1 C 107 H 27 H 92 01/17/22 06:25 37.1 C 107 H 25 H 92 01/17/22 06:20 37.2 C 99 H 27 H 91 01/17/22 06:15 37.2 C 102 H 26 H 91 01/17/22 06:13 37.1 C 102 H 25 H 90 01/17/22 06:00 37.1 C 98 H 22 91 01/17/22 05:55 37.1 C 95 H 23 92 01/17/22 05:50 37.1 C 95 H 18 91 01/17/22 05:45 37.1 C 99 H 24 91 01/17/22 05:40 37.1 C 95 H 23 90 01/17/22 05:35 37.1 C 98 H 21 90 01/17/22 05:30 37.1 C 94 H 22 89 L 01/17/22 05:25 37.1 C 94 H 26 H 90 01/17/22 05:20 37.1 C 96 H 23 90 01/17/22 05:15 37.1 C 123 H 22 90 01/17/22 05:10 37.1 C 101 H 24 90 01/17/22 05:05 37.1 C 97 H 23 88 L 01/17/22 05:01 37.1 C 98 H 22 139/88 90 01/17/22 05:00 37.1 C 102 H 22 91 01/17/22 04:55 37.1 C 99 H 24 90 01/17/22 04:50 37.1 C 98 H 24 90 01/17/22 04:45 37.1 C 101 H 25 H 89 L 01/17/22 04:40 37.1 C 99 H 22 90 01/17/22 04:35 37.1 C 100 H 24 89 L 01/17/22 04:30 37.1 C 97 H 23 92 01/17/22 04:25 37.1 C 96 H 23 91 01/17/22 04:20 37.1 C 98 H 25 H 90 01/17/22 04:15 37.1 C 101 H 23 91 01/17/22 04:10 37.1 C 97 H 23 91 01/17/22 04:05 37.1 C 99 H 22 91 01/17/22 04:01 37.1 C 99 H 23 134/82 90 01/17/22 04:00 37.1 C 95 H 22 90 01/17/22 03:55 37.1 C 101 H 23 91 01/17/22 03:53 37.1 C 108 H 27 H 90 01/17/22 03:45 37.1 C 98 H 27 H 89 L 01/17/22 03:40 37.1 C 98 H 22 92 01/17/22 03:35 37.1 C 102 H 23 90 01/17/22 03:30 37.1 C 98 H 22 90 01/17/22 03:25 37.1 C 101 H 22 88 L 01/17/22 03:20 37.1 C 105 H 23 90 01/17/22 03:15 37.1 C 98 H 23 91 01/17/22 03:10 37.1 C 99 H 24 90 01/17/22 03:05 37.1 C 101 H 21 92 01/17/22 03:00 37.1 C 98 H 24 129/79 90 01/17/22 02:55 37.1 C 101 H 24 91 01/17/22 02:50 37.2 C 101 H 25 H 91 01/17/22 02:45 37.1 C 104 H 23 91 01/17/22 02:40 37.1 C 103 H 22 92 01/17/22 02:35 37.2 C 101 H 26 H 91 01/17/22 02:30 37.2 C 101 H 19 90 01/17/22 02:25 37.2 C 97 H 22 90 01/17/22 02:20 37.2 C 103 H 23 91 01/17/22 02:15 37.2 C 99 H 25 H 91 01/17/22 02:12 102 H 27 H 01/17/22 02:10 37.1 C 101 H 21 92 01/17/22 02:05 37.2 C 100 H 23 91 01/17/22 02:01 37.2 C 101 H 23 115/79 90 01/17/22 02:00 37.1 C 97 H 24 91 01/17/22 01:55 37.1 C 99 H 24 90 01/17/22 01:50 37.2 C 97 H 25 H 01/17/22 01:45 37.2 C 104 H 27 H 01/17/22 01:40 37.2 C 103 H 24 90 01/17/22 01:35 37.1 C 108 H 22 01/17/22 01:30 37.1 C 101 H 24 92 01/17/22 01:25 37.1 C 101 H 25 H 01/17/22 01:20 37.1 C 104 H 24 01/17/22 01:15 37.1 C 106 H 22 01/17/22 01:10 37.1 C 106 H 25 H 91 01/17/22 01:05 37.1 C 101 H 20 94 01/17/22 00:05 103 H 24 92 01/17/22 00:00 105 H 01/16/22 22:09 108 H 27 H 92 Lab & Micro Results (Past 24 Hours) RBC 3.72 M/uL (4.7-6.1) L 01/17/22 WBC 11.25 K/uL (4.8-10.8) H 01/17/22 Hgb 9.8 g/dL (14.0-18.0) L 01/17/22 Hct 34.2 % (42-52) L 01/17/22 MCV 91.9 fL (80-100) 01/17/22 MCH 26.3 pg (25-34) 01/17/22 MCHC 28.7 g/dL (32-36) L 01/17/22 RDW Standard Deviation 59.5 fL (36.4-46.3) H 01/17/22 RDW Coefficient of Variation 17.6 % (11.5-14.5) H 01/17/22 Plt Count 260 K/uL (130-400) 01/17/22 MPV 11.0 fL (7.4-10.4) H 01/17/22 Neutrophils (%) (Auto) 81.1 % 01/17/22 Lymphocytes (%) (Auto) 11.5 % 01/17/22 Monocytes # (Auto) 0.73 K/uL (0.11-0.59) H 01/17/22 Eosinophils # (Auto) 0.03 K/uL (0-0.5) 01/17/22 Immature Granulocyte % (Auto) 0.5 % 01/17/22 Neutrophils # (Auto) 9.13 K/uL (1.4-6.5) H 01/17/22 Lymphocytes # (Auto) 1.29 K/uL (1.2-3.4) 01/17/22 Monocytes # (Auto) 0.73 K/uL (0.11-0.59) H 01/17/22 Eosinophils # (Auto) 0.03 K/uL (0-0.5) 01/17/22 Basophils # (Auto) 0.01 K/uL (0-0.2) 01/17/22 Immature Granulocyte # (Auto) 0.06 K/uL (0.00-0.02) H 01/17/22 Microcytosis Present 01/17/22 Na 143 mmol/L (136-145) 01/17/22 K 3.4 mmol/L (3.5-5.1) L 01/17/22 Cl 99 mmol/L (98-107) 01/17/22 CO2 39 mmol/L (21-32) H 01/17/22 Anion Gap 5 (3-11) 01/17/22 BUN 20 mg/dl (6-23) 01/17/22 Creatinine 0.68 mg/dl (0.6-1.4) 01/17/22 Estimated GFR ( Amer) 112.9 ml/min 01/17/22 Estimated GFR (Non-Af Amer) 97.4 ml/min 01/17/22 BUN/Creatinine Ratio 29.4 (10-20) H 01/17/22 Glu 92 mg/dl (70-99(Fasting)) 01/17/22 Ca 9.5 mg/dl (8.5-10.1) 01/17/22 Phosphorus Level 3.5 mg/dl (2.5-4.9) 01/17/22 Mg 2.1 mg/dl (1.7-2.4) 01/17/22 05:07 01/17/22 Calcium Level 9.5 mg/dl (8.5-10.1) 01/17/22 05:07 01/17/22 Microbiology 01/15/22 10:59 Aerobic Blood Culture - Preliminary Blood No growth in Aerobic bottle after 24 hours. Anaerobic Blood Culture - Preliminary No growth in Anaerobic bottle after 24 hours. 01/15/22 10:54 Aerobic Blood Culture - Preliminary Blood No growth in Aerobic bottle after 24 hours. Anaerobic Blood Culture - Preliminary No growth in Anaerobic bottle after 24 hours. 01/15/22 13:05 Gram Stain - Final Sputum,Vent Suction Sputum Culture - Preliminary Moderate normal jo ann present, final report to follow. Diagnostic Findings (Past 24 Hours) Chest X-Ray 01/17/22 06:00 XR chest 1V portable CLINICAL HISTORY: evaluate ett placement and lung COMPARISON STUDY: Chest radiograph January 16, 2022. FINDINGS: The endotracheal and nasogastric tubes have been removed. There is no pneumothorax. Small right pleural effusion is noted. Blunting of left costophrenic angle is likely chronic. Right mid and lower lung airspace opacity is unchanged. Cardiomegaly is again noted. No evidence for pulmonary edema. IMPRESSION: 1. Interval removal of the endotracheal and nasogastric tubes. 2. Persistent right mid and lower lung airspace opacity which could reflect pneumonia or atelectasis. Radiographic follow-up is recommended. 3. Small right pleural effusion. ACT 112: Negative or not required by law. Electronically signed by: Donell Garrison M.D. 01/17/2022 7:08 AM I & O Totals 24 Hours 01/16/22 01/17/22 01/18/22 06:59 06:59 06:59 Intake Total 1284.700 / 7928.691 0568.6 / 2191.6 Output Total 460 / 460 850 / 850 Balance 824.700 / 768.919 6372.6 / 1341.6 Cumulative 01/15/22 10:18 thru 01/17/22 06:00 Intake Total 3476.300 Output Total 1310 Balance 2166.300 RT Ventilator Mngmt (Last Documented) Ventilator Ordered Settings Ventilator Support Mode Pressure Control 01/16/22 20:00 Respiratory Rate 26 01/17/22 09:28 Ventilator Tidal Volume 400 01/16/22 10:35 Setting Minute Ventilation 7.5 01/16/22 15:38 Ventilator Positive Pressure 5 01/16/22 15:38 Support Setting Positive End Expiratory 5 01/16/22 15:38 Pressure Fraction of Inspired Oxygen 40 01/17/22 09:28 Machine Comment found on 03/0901/16/22 15:38 Ventilator - PT Measurements Respiratory Rate 26 Exhaled Tidal Volume 286 Minute Ventilation 7.5 Peak Inspiratory Airway 11 Pressure Plateau Pressure 17 Respiratory Cycle Inspiratory: 1:3.1 Expiratory Ratio Inspiratory Phase Time 0.80 End-Tidal CO2 41 Static Lung Compliance 44.44 Dynamic Lung Compliance 47.67 Normal Static Lung Compliance 48.00 Patient Measurements Comment extubated to bipap 10/10 Coding Level of Care Code 74277 Subseq Hosp Care Lvl 3 Diagnoses Acute hypoxemic respiratory failure J96.01 Hypercapnic respiratory failure J96.92 Encephalopathy G93.40
[2022-01-17] MEDS: ICU ELECTROLYTE REPLACEMENT PROTOCOL SCH (10:46)
[2022-01-17] MEDS: DOCUSATE SODIUM SYRUP 100 MG/10 ML UDC PO SCH ×2 (10:48→21:32)
[2022-01-17] MEDS: SERTRALINE HCL 100 MG TABLET PO SCH (10:48)
[2022-01-17] MEDS: QUEtiapine FUMARATE 25 MG TABLET PO SCH ×2 (10:48→21:33)
[2022-01-17] MEDS: METOPROLOL TARTRATE 25 MG TAB PO SCH ×2 (10:48→21:33)
[2022-01-17] MEDS: ASPIRIN 81 MG CHEW NG SCH (10:48)
[2022-01-17] MEDS: INSULIN GLARGINE SOLOSTAR 100 UNITS/ML 3 ML PEN SC SCH ×2 (11:04→21:32)
--- NOTE | 2022-01-17 11:05 | Hospitalist Progress Note ---
Date of Service January 17, 2022 Assessment & Plan (1) Acute hypoxemic respiratory failure: Plan: Dale Junior is a 71-year-old male with a past medical history of chronic respiratory failure with recurrent aspiration with required ventilation while at [facility] and eventually required trach placement at [place] with peg tube placement and removal last July 2021 per pts , COPD, seizure, HLD, HTN, diabetes, and dementia. Acute on chronic hypoxemic hypercarbic respiratory failure: AMBERLY versus obesity hypoventilation. Patient has refused CPAP at [facility]. Hx of recurrent aspiration and recent hospital admission for asp PNA with lobar collapse. - CT chest on admission showed RLL consolidation with mucus plugging. Likely another episode of aspiration. - Continue Zosyn - Still ICU status with BiPap required. Will discuss with them and determine when stable for downgrade to PCU. (2) Aspiration pneumonia of right lower lobe: Plan: As above (3) Dementia: Plan: Likely acutely worsened by hypercapnia. UDS negative; CT head with no acute findings. - Seems to be improving (4) CHF (congestive heart failure): Plan: No echo on file. Metoprolol as above Continue aspirin daily - Will obtain echo once out of the ICU (5) Diabetes: Plan: A1c was 6.8% in 2020. ICU hyperglycemic protocol - Sliding scale insulin (6) HLD (hyperlipidemia): Plan: Continue atorvastatin via NG (7) HTN (hypertension): Plan: BP was 150/90 today. Toprol increased to 25 mg twice daily (8) Seizure: Plan: Hx of. Divalproex currently held while n.p.o. On valproic acid 125 mg every 6 hours via PEG (9) Anxiety and depression: Plan: Continue home sertraline 100 p.o. daily Plan: DVT prophylaxis: Lovenox 40 mg SQ Q12h Admission and Anticipated Discharge Date Admission Date: January 15, 2022 Subjective Now on BiPap and seems to be doing pretty well. Per family discussion, now DNR/DNI. Per respiratory, will plan to try to wean to Oxymask if able. The patient can answer simple yes/no questions while in BiPap. Reports no fevers/chills, chest pain, abdominal pain, nausea, or vomiting. He denies shortness of breath while on the BiPap. Physical Exam Constitutional: WD/WN, vitals as above + acute distress and + obese Eyes: EOM intact bilaterally; no conjunctival abnormality ENMT: external ear and nose normal, oropharynx normal Neck: trachea midline, no thyromegaly normal visual inspection Respiratory: normal respiratory effort, lungs clear to auscultation + labored breathing and + tachypneic; no respiratory distress Auscultation: + rhonchi; no wheezes Cardiovascular: RRR, no murmur, no edema Gastrointestinal (Abdomen): Inspection/Auscultation: + abdomen abnormal to inspection (Large) and abdomen not distended Musculoskeletal: no cyanosis or clubbing, extremities motor strength 5/5 Skin: no rashes, warm and dry Neurologic: moves all extremities and awake Psychiatric: Orientation: alert, oriented to person and cooperative Results & Data Results & Data ([facility]) Vital Signs (Past 12 Hours) Vital Signs Temp Pulse Pulse Resp BP Pulse Ox 01/17/22 09:28 102 H 26 H 96 01/17/22 07:43 99 H 96 H 26 H 92 01/17/22 07:30 37.1 C 103 H 21 01/17/22 07:25 37.1 C 103 H 21 91 01/17/22 07:20 37.1 C 97 H 24 90 01/17/22 07:15 37.1 C 101 H 22 01/17/22 07:10 37.1 C 98 H 21 89 L 01/17/22 07:05 37.1 C 111 H 26 H 92 01/17/22 07:01 37.1 C 100 H 22 153/97 H 92 01/17/22 07:00 37.1 C 98 H 25 H 01/17/22 06:55 37.1 C 22 01/17/22 06:50 37.1 C 98 H 21 91 01/17/22 06:45 37.1 C 98 H 20 91 01/17/22 06:40 37.1 C 105 H 25 H 91 01/17/22 06:35 37.1 C 101 H 22 92 01/17/22 06:30 37.1 C 107 H 27 H 92 01/17/22 06:25 37.1 C 107 H 25 H 92 01/17/22 06:20 37.2 C 99 H 27 H 91 01/17/22 06:15 37.2 C 102 H 26 H 91 01/17/22 06:13 37.1 C 102 H 25 H 90 01/17/22 06:00 37.1 C 98 H 22 91 01/17/22 05:55 37.1 C 95 H 23 92 01/17/22 05:50 37.1 C 95 H 18 91 01/17/22 05:45 37.1 C 99 H 24 91 01/17/22 05:40 37.1 C 95 H 23 90 01/17/22 05:35 37.1 C 98 H 21 90 01/17/22 05:30 37.1 C 94 H 22 89 L 01/17/22 05:25 37.1 C 94 H 26 H 90 01/17/22 05:20 37.1 C 96 H 23 90 01/17/22 05:15 37.1 C 123 H 22 90 01/17/22 05:10 37.1 C 101 H 24 90 01/17/22 05:05 37.1 C 97 H 23 88 L 01/17/22 05:01 37.1 C 98 H 22 139/88 90 01/17/22 05:00 37.1 C 102 H 22 91 01/17/22 04:55 37.1 C 99 H 24 90 01/17/22 04:50 37.1 C 98 H 24 90 01/17/22 04:45 37.1 C 101 H 25 H 89 L 01/17/22 04:40 37.1 C 99 H 22 90 01/17/22 04:35 37.1 C 100 H 24 89 L 01/17/22 04:30 37.1 C 97 H 23 92 01/17/22 04:25 37.1 C 96 H 23 91 01/17/22 04:20 37.1 C 98 H 25 H 90 01/17/22 04:15 37.1 C 101 H 23 91 01/17/22 04:10 37.1 C 97 H 23 91 01/17/22 04:05 37.1 C 99 H 22 91 01/17/22 04:01 37.1 C 99 H 23 134/82 90 01/17/22 04:00 37.1 C 95 H 22 90 01/17/22 03:55 37.1 C 101 H 23 91 01/17/22 03:53 37.1 C 108 H 27 H 90 01/17/22 03:45 37.1 C 98 H 27 H 89 L 01/17/22 03:40 37.1 C 98 H 22 92 01/17/22 03:35 37.1 C 102 H 23 90 01/17/22 03:30 37.1 C 98 H 22 90 01/17/22 03:25 37.1 C 101 H 22 88 L 01/17/22 03:20 37.1 C 105 H 23 90 01/17/22 03:15 37.1 C 98 H 23 91 01/17/22 03:10 37.1 C 99 H 24 90 01/17/22 03:05 37.1 C 101 H 21 92 01/17/22 03:00 37.1 C 98 H 24 129/79 90 01/17/22 02:55 37.1 C 101 H 24 91 01/17/22 02:50 37.2 C 101 H 25 H 91 01/17/22 02:45 37.1 C 104 H 23 01/17/22 02:40 37.1 C 103 H 22 92 01/17/22 02:35 37.2 C 101 H 26 H 91 01/17/22 02:30 37.2 C 101 H 19 90 01/17/22 02:25 37.2 C 97 H 22 90 01/17/22 02:20 37.2 C 103 H 23 01/17/22 02:15 37.2 C 99 H 25 H 91 01/17/22 02:12 102 H 27 H 91 01/17/22 02:10 37.1 C 101 H 21 92 01/17/22 02:05 37.2 C 100 H 23 91 01/17/22 02:01 37.2 C 101 H 23 115/79 90 01/17/22 02:00 37.1 C 97 H 24 91 01/17/22 01:55 37.1 C 99 H 24 90 01/17/22 01:50 37.2 C 97 H 25 H 90 01/17/22 01:45 37.2 C 104 H 27 H 91 01/17/22 01:40 37.2 C 103 H 24 90 01/17/22 01:35 37.1 C 108 H 22 90 01/17/22 01:30 37.1 C 101 H 24 92 01/17/22 01:25 37.1 C 101 H 25 H 91 01/17/22 01:20 37.1 C 104 H 24 91 01/17/22 01:15 37.1 C 106 H 22 90 01/17/22 01:10 37.1 C 106 H 25 H 91 01/17/22 01:05 37.1 C 101 H 20 94 01/17/22 00:05 103 H 24 92 01/17/22 00:00 105 H PG Care Time/CCT Total # of Minutes Spent Total Time Spent with Patient: Total time spent is greater than 50% in coordination of care (as documented) at patient's floor/unit and/or counseling patient: Coding Level of Care Code 68032 Subseq Hosp Care Lvl 3 Diagnoses Acute hypoxemic respiratory failure J96.01 Aspiration pneumonia of right lower lobe J69.0 Aspiration pneumonia type: unspecified Dementia F03.90 Diabetes E11.9 HLD (hyperlipidemia) E78.5 HTN (hypertension) I10 Seizure R56.9 Anxiety and depression F41.9; F32.A CHF (congestive heart failure) I50.9 (1) Aspiration pneumonia of right lower lobe Aspiration pneumonia type: unspecified Qualified Code(s): J69.0 - Pneumonitis due to inhalation of food and vomit
[2022-01-17] MEDS: ENOXAPARIN INJ 40 MG/0.4 ML SYR SQ SCH ×2 (11:08→21:38)
[2022-01-17] MEDS: PANTOprazole 40 MG in SYRINGE 0 ML IV SCH (11:54)
[2022-01-17] MEDS: cefTRIAXone SODIUM 2,000 MG in DEXTROSE 5% 50 ML IV SCH (13:46)
[2022-01-17] MEDS: ATORVASTATIN 40 MG TAB NG SCH (21:31)
[2022-01-17] MEDS: DIVALPROEX DELAY RELEASE 250 MG TABEC PO SCH (21:32)
[2022-01-18] MEDS: ALBUT/IPRATROP 3MG/0.5MG NEB 3 ML VIAL INH SCH ×4 (00:06→19:11)
[2022-01-18] MEDS: INSULIN ASPART PER UNIT SC SCH ×5 (01:54→20:50)
[2022-01-18] MEDS: VALPROIC ACID 50 MG/ML UDP PEG SCH ×4 (01:55→17:11)
[2022-01-18 07:16] LABS: Eosinophils # (auto) 0.09 K/uL (0-0.5); Hematocrit (blood only) 34.3 % (42-52); Hemoglobin 9.7 g/dL (14.0-18.0); Immature Granulocytes # (auto) 0.03 K/uL (0.00-0.02); Immature Granulocytes % (auto) 0.3 %; Lymphocytes # (auto) 0.84 K/uL (1.2-3.4); Lymphocytes % (auto) 8.9 %; Mean Corpuscular Hemoglobin 26.5 pg (25-34); Mean Corpuscular Hgb Conc 28.3 g/dL (32-36); Mean Corpuscular Volume 93.7 fL (80-100); Mean Platelet Volume 11.6 fL (7.4-10.4); Monocytes # (auto) 0.67 K/uL (0.11-0.59); Monocytes % (auto) 7.1 %; Neutrophils # (auto) 7.79 K/uL (1.4-6.5); Neutrophils % (auto) 82.7 %; Platelet Count 296 K/uL (130-400); RDW Coefficient of Variation 18.1 % (11.5-14.5); RDW Standard Deviation 61.7 fL (36.4-46.3); Red Blood Count 3.66 M/uL (4.7-6.1); White Blood Count 9.42 K/uL (4.8-10.8)
[2022-01-18] MEDS: DIVALPROEX DELAY RELEASE 250 MG TABEC PO SCH ×2 (07:31→20:52)
[2022-01-18] MEDS: ASPIRIN 81 MG CHEW NG SCH (07:31)
[2022-01-18] MEDS: DONEPEZIL HCL 5 MG TAB PO SCH (07:32)
[2022-01-18] MEDS: DOCUSATE SODIUM SYRUP 100 MG/10 ML UDC PO SCH ×2 (07:32→20:54)
[2022-01-18] MEDS: METOPROLOL TARTRATE 25 MG TAB PO SCH ×2 (07:33→20:54)
[2022-01-18] MEDS: TERAZOSIN HCL 1 MG CAP PO SCH (07:33)
[2022-01-18] MEDS: SERTRALINE HCL 100 MG TABLET PO SCH (07:33)
[2022-01-18] MEDS: QUEtiapine FUMARATE 25 MG TABLET PO SCH ×2 (07:33→20:55)
[2022-01-18 07:34] LABS: BUN Creatinine Ratio 25.9 (10-20); Calcium 9.2 mg/dl (8.5-10.1); Creatinine Clr Calc Pharmacy 167.4 ml/min; Est GFR (African American) 124.2 ml/min; Est GFR (Non-African American) 107.1 ml/min; Magnesium 2.1 mg/dl (1.7-2.4); Phosphorus 4.3 mg/dl (2.5-4.9); Potassium 3.6 mmol/L (3.5-5.1)
[2022-01-18] MEDS: INSULIN GLARGINE SOLOSTAR 100 UNITS/ML 3 ML PEN SC SCH ×2 (08:22→20:55)
[2022-01-18] MEDS: ENOXAPARIN INJ 40 MG/0.4 ML SYR SQ SCH (09:04)
[2022-01-18] MEDS: PANTOprazole 40 MG in SYRINGE 0 ML IV SCH (11:52)
[2022-01-18] MEDS: cefTRIAXone SODIUM 2,000 MG in DEXTROSE 5% 50 ML IV SCH (13:36)
[2022-01-18] MEDS ORDERED: Nursing to Pharmacy Communication SCH (14:15)
--- NOTE | 2022-01-18 18:50 | Hospitalist Progress Note ---
Date of Service January 18, 2022 Assessment & Plan (1) Acute hypoxemic respiratory failure: Plan: Dale Junior is a 71-year-old male with a past medical history of chronic respiratory failure with recurrent aspiration with required ventilation while at [facility] and eventually required trach placement at [place] with peg tube placement and removal last July 2021 per pts , COPD, seizure, HLD, HTN, diabetes, and dementia. Acute on chronic hypoxemic hypercarbic respiratory failure: AMBERLY versus obesity hypoventilation. Patient has refused CPAP at [facility]. Hx of recurrent aspiration and recent hospital admission for asp PNA with lobar collapse. - CT chest on admission showed RLL consolidation with mucus plugging. Likely another episode of aspiration. - Continue ceftriaxone - Downgraded from ICU on 01/17. Now down to 6L while awake. His baseline is 3.5L, so moving in the right direction. (2) Aspiration pneumonia of right lower lobe: Plan: As above (3) Dementia: Plan: Likely acutely worsened by hypercapnia. UDS negative; CT head with no acute findings. - Seems to be improving -> At baseline on 01/18. (4) CHF (congestive heart failure): Plan: No echo on file. Metoprolol as above Continue aspirin daily (5) Diabetes: Plan: A1c was 6.8% in 2020. ICU hyperglycemic protocol - Sliding scale insulin (6) HLD (hyperlipidemia): Plan: Continue atorvastatin (7) HTN (hypertension): Plan: BP was 110/70 today. Continue metoprolol 25 mg twice daily (8) Seizure: Plan: Hx of. Continue home Divalproex (9) Anxiety and depression: Plan: Continue home sertraline 100 p.o. daily Plan: DVT prophylaxis: Lovenox 40 mg SQ daily Admission and Anticipated Discharge Date Admission Date: January 15, 2022 Subjective Doing well. Seen twice today. First time, he reports he is having lots of sputum coughing up. However, he is swallowing it, so not sure if change in color or consistency. In the afternoon, he reports sputum is better. Less cough. Reports no fevers/chills, chest pain, shortness of breath, abdominal pain, nausea, or vomiting. Physical Exam Constitutional: WD/WN, vitals as above + obese Eyes: EOM intact bilaterally; no conjunctival abnormality ENMT: external ear and nose normal, oropharynx normal Neck: trachea midline, no thyromegaly normal visual inspection Respiratory: + labored breathing; no respiratory distress Auscultation: + rhonchi; no wheezes Cardiovascular: RRR, no murmur, no edema Gastrointestinal (Abdomen): Inspection/Auscultation: + abdomen abnormal to inspection (Large) and abdomen not distended Musculoskeletal: no cyanosis or clubbing, extremities motor strength 5/5 Skin: no rashes, warm and dry Neurologic: moves all extremities and awake Psychiatric: Orientation: alert, oriented to person and cooperative Results & Data Results & Data ([facility]) Vital Signs (Past 12 Hours) Vital Signs Temp Pulse Pulse Resp BP Pulse Ox 01/18/22 15:05 36.6 C 110 H 19 111/72 90 01/18/22 11:43 36.7 C 91 H 17 140/80 93 01/18/22 11:01 90 20 90 01/18/22 07:57 36.8 C 104 H 15 119/76 90 01/18/22 07:04 105 H 22 91 PG Care Time/CCT Total # of Minutes Spent Total Time Spent with Patient: Total time spent is greater than 50% in coordination of care (as documented) at patient's floor/unit and/or counseling patient: Coding Level of Care Code 23290 Subseq Hosp Care Lvl 2 Diagnoses Acute hypoxemic respiratory failure J96.01 Aspiration pneumonia of right lower lobe J69.0 Aspiration pneumonia type: unspecified Dementia F03.90 CHF (congestive heart failure) I50.9 Diabetes E11.9 HLD (hyperlipidemia) E78.5 HTN (hypertension) I10 Seizure R56.9 Anxiety and depression F41.9; F32.A (1) Aspiration pneumonia of right lower lobe Aspiration pneumonia type: unspecified Qualified Code(s): J69.0 - Pneumonitis due to inhalation of food and vomit
[2022-01-18] MEDS: ATORVASTATIN 40 MG TAB NG SCH (20:54)
[2022-01-19] MEDS: ALBUT/IPRATROP 3MG/0.5MG NEB 3 ML VIAL INH SCH ×4 (00:16→19:30)
[2022-01-19 07:35] LABS: BUN Creatinine Ratio 23.1 (10-20); Calcium 9.2 mg/dl (8.5-10.1); Creatinine Clr Calc Pharmacy 147.4 ml/min; Est GFR (African American) 115.1 ml/min; Est GFR (Non-African American) 99.3 ml/min; Magnesium 2.1 mg/dl (1.7-2.4); Phosphorus 3.6 mg/dl (2.5-4.9); Potassium 3.2 mmol/L (3.5-5.1)
[2022-01-19] MEDS: INSULIN ASPART PER UNIT SC SCH ×4 (09:06→20:47)
[2022-01-19] MEDS: PANTOprazole 40 MG TAB PO SCH (09:59)
[2022-01-19] MEDS: DIVALPROEX DELAY RELEASE 250 MG TABEC PO SCH ×2 (09:59→20:54)
[2022-01-19] MEDS: METOPROLOL TARTRATE 25 MG TAB PO SCH ×2 (09:59→20:54)
[2022-01-19] MEDS: ENOXAPARIN INJ 40 MG/0.4 ML SYR SQ SCH (09:59)
[2022-01-19] MEDS: QUEtiapine FUMARATE 25 MG TABLET PO SCH ×2 (09:59→20:53)
[2022-01-19] MEDS: SERTRALINE HCL 100 MG TABLET PO SCH (09:59)
[2022-01-19] MEDS: DOCUSATE SODIUM SYRUP 100 MG/10 ML UDC PO SCH ×2 (10:00→20:54)
[2022-01-19] MEDS: DONEPEZIL HCL 5 MG TAB PO SCH (10:00)
[2022-01-19] MEDS: TERAZOSIN HCL 1 MG CAP PO SCH (10:00)
[2022-01-19] MEDS: INSULIN GLARGINE SOLOSTAR 100 UNITS/ML 3 ML PEN SC SCH ×2 (10:03→20:48)
[2022-01-19] MEDS: ASPIRIN 81 MG CHEW NG SCH (10:05)
[2022-01-19] MEDS: POTASSIUM CHLORIDE PWD 20 MEQ PACK PO SCH ×2 (12:19→20:53)
[2022-01-19] MEDS: cefTRIAXone SODIUM 2,000 MG in DEXTROSE 5% 50 ML IV SCH (14:48)
--- NOTE | 2022-01-19 20:14 | Hospitalist Progress Note ---
Date of Service January 19, 2022 Assessment & Plan (1) Acute hypoxemic respiratory failure: Plan: Dale Junior is a 71-year-old male with a past medical history of chronic respiratory failure with recurrent aspiration with required ventilation while at [facility] and eventually required trach placement at [place] with peg tube placement and removal last July 2021 per pts , COPD, seizure, HLD, HTN, diabetes, and dementia. Acute on chronic hypoxemic hypercarbic respiratory failure: AMBERLY versus obesity hypoventilation. Patient has refused CPAP at [facility]. Hx of recurrent aspiration and recent hospital admission for asp PNA with lobar collapse. - CT chest on admission showed RLL consolidation with mucus plugging. Likely another episode of aspiration. - Continue ceftriaxone - Downgraded from ICU on 01/17. Now down to 4L while awake. His baseline is 3.5L, so moving in the right direction. Anticipate discharge within next 24 to 48 hours. (2) Aspiration pneumonia of right lower lobe: Plan: As above (3) Dementia: Plan: Likely acutely worsened by hypercapnia. UDS negative; CT head with no acute findings. - Seems to be improving -> At baseline on 01/18. (4) CHF (congestive heart failure): Plan: No echo on file. Metoprolol as above Continue aspirin daily (5) Diabetes: Plan: A1c was 6.8% in 2020. ICU hyperglycemic protocol - Sliding scale insulin (6) HLD (hyperlipidemia): Plan: Continue atorvastatin (7) HTN (hypertension): Plan: BP was 110/70 today. Continue metoprolol 25 mg twice daily (8) Seizure: Plan: Hx of. Continue home Divalproex (9) Anxiety and depression: Plan: Continue home sertraline 100 p.o. daily Plan: DVT prophylaxis: Lovenox 40 mg SQ daily Admission and Anticipated Discharge Date Admission Date: January 15, 2022 Subjective Patient resting comfortably. Patient has no new complaints. Review of Systems Review of Systems: All systems reviewed & are unremarkable except as noted in HPI & below Physical Exam Physical Exam: General: Pleasant, resting comfortably. HEENT: Post tracheostomy scar well-healed.Opens eyes as above, pupils equal and reactive to light. Pulm: Improved brath sounds, minimal rales at bases, symmetrical chest rise. No increase in work of breathing. No respiratory distress. Cardiac: Regular, tachycardic, -mrg. Radial pulses intact and symmetrical. Abdominal: Nontender, nondistended, soft. BS present. Results & Data Results & Data ([facility]) Vital Signs (Past 12 Hours) Vital Signs Temp Pulse Pulse Resp BP Pulse Ox 01/19/22 19:54 36.5 C 79 20 133/69 90 01/19/22 19:30 72 90 01/19/22 15:54 70 01/19/22 15:00 36.9 C 88 20 115/73 98 01/19/22 12:56 77 20 98 01/19/22 11:24 36.9 C 82 14 106/66 96 PG Care Time/CCT Total # of Minutes Spent Total Time Spent with Patient: Total time spent is greater than 50% in coordination of care (as documented) at patient's floor/unit and/or counseling patient: Coding Level of Care Code 67874 Subseq Hosp Care Lvl 2 Diagnoses Acute hypoxemic respiratory failure J96.01 Aspiration pneumonia of right lower lobe J69.0 Aspiration pneumonia type: unspecified Dementia F03.90 CHF (congestive heart failure) I50.9 Diabetes E11.9 HLD (hyperlipidemia) E78.5 HTN (hypertension) I10 Seizure R56.9 Anxiety and depression F41.9; F32.A (1) Aspiration pneumonia of right lower lobe Aspiration pneumonia type: unspecified Qualified Code(s): J69.0 - Pneumonitis due to inhalation of food and vomit
[2022-01-19] MEDS: ATORVASTATIN 40 MG TAB NG SCH (20:54)
[2022-01-20] MEDS: ALBUT/IPRATROP 3MG/0.5MG NEB 3 ML VIAL INH SCH ×3 (00:01→13:20)
[2022-01-20 08:28] LABS: BUN Creatinine Ratio 27.3 (10-20); Calcium 9.1 mg/dl (8.5-10.1); Creatinine Clr Calc Pharmacy 174.4 ml/min; Est GFR (African American) 123.2 ml/min; Est GFR (Non-African American) 106.3 ml/min; Phosphorus 3.4 mg/dl (2.5-4.9); Potassium 3.8 mmol/L (3.5-5.1)
[2022-01-20] MEDS: QUEtiapine FUMARATE 25 MG TABLET PO SCH (08:28)
[2022-01-20] MEDS: POTASSIUM CHLORIDE PWD 20 MEQ PACK PO SCH (08:28)
[2022-01-20] MEDS: DONEPEZIL HCL 5 MG TAB PO SCH (08:28)
[2022-01-20] MEDS: DIVALPROEX DELAY RELEASE 250 MG TABEC PO SCH (08:28)
[2022-01-20] MEDS: TERAZOSIN HCL 1 MG CAP PO SCH (08:29)
[2022-01-20] MEDS: ENOXAPARIN INJ 40 MG/0.4 ML SYR SQ SCH (08:29)
[2022-01-20] MEDS: SERTRALINE HCL 100 MG TABLET PO SCH (08:29)
[2022-01-20] MEDS: DOCUSATE SODIUM SYRUP 100 MG/10 ML UDC PO SCH (08:29)
[2022-01-20] MEDS: PANTOprazole 40 MG TAB PO SCH (08:29)
[2022-01-20] MEDS: ASPIRIN 81 MG CHEW NG SCH (08:32)
[2022-01-20] MEDS: INSULIN ASPART PER UNIT SC SCH ×2 (08:33→11:56)
[2022-01-20] MEDS: METOPROLOL TARTRATE 25 MG TAB PO SCH (08:33)
[2022-01-20] MEDS: INSULIN GLARGINE SOLOSTAR 100 UNITS/ML 3 ML PEN SC SCH (10:01)
[2022-01-20] MEDS ORDERED: ACETAMINOPHEN 325 MG TAB PO PRN (11:32)
--- NOTE | 2022-01-20 11:44 | Discharge Summary ---
Date of Service January 20, 2022 Admission HPI Per Admitting Provider Dale Junior is a 71-year-old male with a past medical history of chronic respiratory failure with recurrent aspiration with required ventilation while at [facility] and eventually required trach placement at [place] with peg tube placement and removal last July 2021 per pts , COPD, seizure, HLD, HTN, diabetes, and dementia. Collateral obtained from patient's Jennifer Harvey who is his surrogate d ecision-maker. History from patient is limited due to ETT. At time of visit patient intubated, ventilated AC/VC VT 440, PEEP 5, FiO2 35%, rate 20 breathing over 24. Patient Covid negative, received Covid vaccination unclear if received booster. Patient's he is a resident of the [facility] at [facility] and is nearly bedbound, was in his otherwise normal state of health 1 week ago. Per his he started to become confused 3 days ago and had progressive somnolence and confusion since that time. He was brought in today for difficulty breathing, hypoxia, and confusion. CT of the chest shows fluid/debris in the right lower lobe airway and consolidation in the right lower lobe consistent with aspiration pneumonia. He has a history of obstructive sleep apnea last tested many years ago, his reports that he has refused CPAP and has not had a sleep apnea reevaluation. Medical History: Reviewed w/ Medications: Chart Reviewed Surgical History: Chart Reviewed Allergies: Reviewed Social History: no tobacco use since 2011, no etoh use Code Status: Full COde Principal Diagnosis Acute on chronic hypercapnic respiratory failure Possible aspiration pneumonitis/pneumonia Discharge Exam General: A&Ox3. NAD. Cooperative. HEENT: Atraumatic, normocephalic. Pupils equal and reactive to light. Pulm: Diminished and somewhat distant, but grossly clear -wheezes, -rales, - rhonchi. Symmetrical chest rise. No increase in work of breathing. No respiratory distress. Cardiac: RRR, 1/6 systolic murmur no rg. Radial pulses intact and symmetrical. Abdominal: Nontender, nondistended, soft. BS present. Extremities: Warm, dry. Skin: Pressure erythema of buttock, no purulence/discharge. Discharge Data Allergies Allergy/AdvReac Type Severity Reaction Status Date / Time ketorolac [From Toradol] Allergy Unknown Unknown Verified 01/15/22 12:21 Consultations 03/13/22 12:43 ED Decision to Admit Stat 01/15/22 14:38 Consult Apron Trimmer Routine Ordered Studies 01/15/22 10:54 CT angio chest PE protocol Stat 01/15/22 11:11 CT head/brain wo con Stat Hospital Course (1) Acute hypoxemic respiratory failure: Dale Junior is a 71-year-old male with a past medical history of chronic respiratory failure with recurrent aspiration with required ventilation while at [facility] and eventually required trach placement at [place] with peg tube placement and removal last July 2021 per pts , COPD, seizure, HLD, HTN, diabetes, and dementia. He was admitted for acute on chronic hypercapnic respiratory failure likely due to AMBERLY/obesity hypoventilation and possibly acutely worsened by an aspiration event. He required intubation and ventilation in the ICU, was extubated successfully and returned to his home oxygen requirements. To do as outpatient: 1. Routine follow-up with outside PCP 2. Continue BiPAP nightly, tolerating settings of 12/6 well during admission. Patient has a history of chronic back apnea with AMBERLY/obesity hypoventilation. Without noninvasive ventilation patient is likely to chronically worsen, and has had recent admissions with respiratory failure requiring intubation and tracheostomy in the last year. 3. Continue oxygen as needed, titrate to goal greater than 88% Acute on chronic hypoxemic hypercarbic respiratory failure: AMBERLY versus obesity hypoventilation. Patient has refused CPAP at [facility]. Hx of recurrent aspiration and recent hospital admission for asp PNA with lobar collapse. - CT chest on admission showed RLL consolidation with mucus plugging. Likely another episode of aspiration. -Debated in ICU, supportive care given, gradually weaned and extubated tolerated well Wean back to baseline 3-4 L of oxygen requirement, doing well at bedside Was covered with Zosyn initially, downgraded to Rocephin and completed 5 days of antibiotics. Pro-John negative. Downgraded from ICU 01/17 Was breathing well and mentating at baseline at time of discharge. (2) Aspiration pneumonia of right lower lobe: As above (3) Dementia: Likely acutely worsened by hypercapnia. UDS negative; CT head with no acute findings. - Seems to be improving -> At baseline on 01/18. (4) CHF (congestive heart failure): No echo on file. Metoprolol as above Continue aspirin daily (5) Diabetes: A1c was 6.8% in 202. ICU hyperglycemic protocol - Sliding scale insulin (6) HLD (hyperlipidemia): Continue atorvastatin (7) HTN (hypertension): BP was 110/70 today. Continue metoprolol 25 mg twice daily (8) Seizure: Hx of. Continue home Divalproex (9) Anxiety and depression: Continue home sertraline 100 p.o. daily DVT prophylaxis: Lovenox 40 mg SQ daily Total Time Total Time Spent Total Time Spent (In Minutes): Time spend day of discharge 35 minutes including direct patient care, documentation, review of labs and images, and coordination of care. Discharge Plan Discharge Items Patient Disposition: Transfer [facility] Reason For Visit: HYPERCARBIC RESP FAILURE REQUIRING INTUBATION Discharge Diagnosis: Cute on chronic hypercarbic respiratory failure, AMEBRLY/obesity hypoventilation Activity: Per Instructions section Non-emergency contact: Primary Care Provider Call non-emergency contact if: you have any medication questions and your symptoms worsen Follow[facility], [Primary Care Provider] - Diet: Carb Consistent or DM2 Addtl Attending Provider Instructions: You are seen in the hospital for acute on chronic hypercarbic respiratory failure, a dangerous and potentially life-threatening condition where carbon dioxide builds up in the blood causing severe sedation, confusion, and organ dysfunction. This may have been acutely worsened by an aspiration event, you were treated for aspiration pneumonia with additional clinical improvement. You required transfer to the ICU during your admission and intubation, and were able to be weaned off of a ventilator and back to baseline oxygen requirements. You likely buildup carbon dioxide at night, it is critically important to continue using BiPAP at night to prevent this from recurring. You are tolerating BiPAP with pressures of 12/6 during admission, it is recommended to continue this at heart side to prevent CO2 from building up overnight. You were treated with 5 days of antibiotics for potential pneumonia, no additional antibiotics were prescribed at discharge. A followup appointment is being scheduled for you with the [facility] PCP. You should be seen seen within 1 week. You should receive a call to confirm this appointment. If you do not receive a call within 48 hours to confirm this appointment, or need to change this appointment, please call the provider's office. If you develop any new or worsening symptoms including fever, chills, sweats, chest pain, chest pressure, difficulty breathing, uncontrolled nausea/vomiting, rash, wheezing, passing out or nearly passing out, bleeding, black/bloody bowel movements, or other new or concerning symptoms please call your primary care physician, or call 911 for re-evaluation in the emergency department if you are very concerned. Pending Studies at Discharge: No Stand-Alone Forms: My [facility] Skilled Items Patient informed of condition?: Yes DNR: Yes Discharge Level of Care: Skilled Communicable Disease: No Discharge Prognosis: Stable Lines: None Urinary Catheter: No Medications and DC Order Prescriptions: Continued ipratropium-albuterol 0.5 mg-3 mg(2.5 mg base)/3 mL Solution For Nebulization 3 ml INHALATION Q4H RF: 0 terazosin 2 mg capsule 2 mg PO QAM RF: 0 atorvastatin 40 mg Tablet 40 mg PO HS RF: 0 donepezil [Aricept] 5 mg Tablet 5 mg PO QAM RF: 0 divalproex 250 mg Tablet,Delayed Release (Dr/Ec) 250 mg PO BID RF: 0 aspirin 81 mg Tablet,Chewable 81 mg PO QAM RF: 0 cholecalciferol (vitamin D3) 25 mcg (1,000 unit) Tablet 25 mcg PO QAM RF: 0 acetazolamide 500 mg Capsule, Extended Release 500 mg PO QAM RF: 0 sertraline 100 mg Tablet 100 mg PO QAM RF: 0 Lactobacillus acidophilus Capsule 0 mmu cells PO QAM Qty: 0 RF: 0 quetiapine [Seroquel] 50 mg Tablet 50 mg PO BID RF: 0 guaifenesin 600 mg Tablet Extended Release 12hr 600 mg PO Q12H RF: 0 pediatric multivitamin Tablet,Chewable 1 tab PO QAM RF: 0 Lantus Solostar U-100 Insulin 100 unit/mL (3 mL) Insulin Pen 35 unit SUBCUT HS RF: 0 potassium chloride 20 mEq Tablet Extended Release 20 meq PO WM RF: 0 theophylline 600 mg Tablet Extended Release 24 Hr 600 mg PO QAM RF: 0 metoprolol tartrate 25 mg Tablet 12.5 mg PO BID RF: 0 acetaminophen 325 mg Tablet 650 mg PO Q4 MDD 3g PRN (Reason: Fever Or Pain) RF: 0 Humulin R Regular U-100 Insuln 100 unit/mL Solution 1 sliding scale dose SUBCUT ACHS RF: 0 furosemide 20 mg Tablet 20 mg PO QAM Qty: 30 RF: 0 Discharge Orders: Discharge Order (Routine); Ordered 03/18/22 Ordered By: Flash Vidal Admission Data Admit Date/Time: 01/15/22 13:08 Attending Provider: Flash Vidal Admit Provider: Maurilio Hurt Primary Care Provider: Lizbeth Tamayo Providers: Julio C Fung ; Flash Vidal ; Ethan Duarte ; Roni, Lefty Level of Care Code D/C DAY MANAGEMENT >30 MINS Diagnoses Acute hypoxemic respiratory failure J96.01 Aspiration pneumonia of right lower lobe J69.0 Aspiration pneumonia type: unspecified Dementia F03.90 CHF (congestive heart failure) I50.9 Diabetes E11.9 HLD (hyperlipidemia) E78.5 HTN (hypertension) I10 Seizure R56.9 Anxiety and depression F41.9; F32.A
[2022-01-20] MEDS: cefTRIAXone SODIUM 2,000 MG in DEXTROSE 5% 50 ML IV SCH (13:17)
== END 2022-01-20 16:01 | DRG 208 ==
LOC: ED 10:29 → 1E 13:08 → SUATTDRO 13:08 → 1E 14:05 → 2S 01-17 16:42

== ENCOUNTER 2022-01-23 04:43 | Inpatient (IN) ==
--- NOTE | 2022-01-23 05:16 | Emergency Department Note ---
Impression & Plan Acute hypoxemic respiratory failure, Right lower lobe pneumonia Admit to the [facility] Provider Note NAME: TREVA PERKINS AGE: 71 SEX: M ARRIVES VIA: Ambulance INFORMANT: Patient EMS ED PROVIDER(S): Hanh Schumacher DO CHIEF COMPLAINT: Shortness of breath PLAN: Disposition: Admit to the [facility] Condition: Guarded MEDICAL DECISION MAKING: This is a 71-year-old male patient with history of severe COPD who presents to the emergency department from [facility] with severe hypoxia with O2 saturations in the 60s. Apparently the patient called out for help complaining of shortness of breath but had taken off his nighttime BiPAP. The patient had been recently discharged from the hospital he had a prolonged admission for respiratory nik lure. Night, EMS was able to restore his O2 saturation by placing him on CPAP. His mental status seemed to improve. The patient had a new right lower lobe opacity noted concerning for pneumonia. The patient leukocytosis and a low-grade fever. ABG revealed a pH of 7.2 with a PCO2 of 86 and a PO2 of 73 all concerning for hypercarbic respiratory failure. Triage Nursing notes reviewed and agree with them. Additional history obtained from EMS Prior medical records reviewed Vital Signs: reviewed and remarkable for hypotension, tachycardia, low-grade fever Differential diagnosis: Pneumonia, CHF, COPD exacerbation, aspiration, COVID-19, hypercarbic respiratory failure ER treatment provided: IV Zosyn Diagnostics interpreted by me: ECG: Sinus tachycardia at 109 with a first-degree AV block. No obvious ST segment elevation or signs of ischemia. There is no ectopy. Baseline was difficult to read Cardiac Monitoring: Sinus tachycardia at 102 Laboratory studies: See below Imaging studies: As per my interpretation Portable chest x-ray: Right-sided pleural effusion with a enlarging right-sided opacity for pneumonia. HPI: 71/M arrives for evaluation of hypoxia. This is a 71-year-old male patient with history of severe COPD who presents to the emergency department from [facility] with severe hypoxia with O2 saturations in the 60s. Apparently the patient called out for help complaining of shortness of breath but had taken off his nighttime BiPAP. ROS: See above HPI for pertinent positives & negatives. A total of 10 systems reviewed and were otherwise negative. PAST MEDICAL HISTORY:See Below PAST SURGICAL HISTORY:See Below FAMILY HISTORY:See Below SOCIAL HISTORY:See Below HOME MEDICATIONS:See list ALLERGIES:See list VITALS:See Below PHYSICAL EXAMINATION: HEENT: Head - normocephalic and atraumatic. Pupils are equal, round, and reactive to light. Extraocular eye muscles are intact, and sclera are anicteric. Nose - moist nasal mucosa without discharge. Mouth - moist buccal mucosa. Oropharynx is nonerythematous and there is no tonsillar exudate or edema noted. Neck: Supple; no DVT or cervical lymphadenopathy Heart: Regular rate and rhythm. There is a normal S1 and S2 with no murmurs, clicks, or gallops appreciated. Lungs: Breath sounds in all lung roblero Abdomen: Soft, completely nontender, nondistended, with good bowel sounds. There are no palpable pulsatile masses or hepatosplenomegaly. There is no guarding, rigidity, or rebound noted. Extremities: No evidence of cyanosis, clubbing, or edema. There are easily palpable peripheral pulses. Skin: warm and dry with good turgor and no rashes. ED COURSE: Times/Reassessments: 0450: The patient was evaluated in room B1. A complete history and physical was performed. Previous electronic medical records were reviewed. A twelve-lead EKG was obtained. An order was placed for continuous cardiac monitoring. The patient was in sinus tachycardia at 102. Patient was placed on BiPAP. The emergency department and was able to maintain O2 saturations greater than 90%. A portable chest x-ray was performed which revealed evidence of a new and enlarging right lower lobe opacity concerning for pneumonia. A septic protocol was performed. Patient was started on IV Zosyn. I discussed the case with the [facility] hospitalist and they will evaluate for further management. I have personally spent greater than 40 minutes of critical care time in the direct management of this patient. This includes bedside care, interpretation of diagnostic studies, and testing, discussion with consultants, patient, and family members, and other required patient management activities. This 40 minutes is in excess of all separately billable procedures. Hanh Schumacher DO Past Med/Surg History Medical History CHF (congestive heart failure) Dementia Diabetes HLD (hyperlipidemia) HTN (hypertension) Hydronephrosis of right kidney No pertinent family history Obesity Obstructive lung disease Smoker Surgical History No pertinent past surgical history Social History Smoking Status: Former smoker Second Hand Exposure: No; Hx Alcohol Use: No Hx Substance Use: No Preferred Language: Angolan Communication Ability: Effective [employer] Required: No Beliefs That Will Affect Care: None marital status: Current Living Situation: Rehab How many Children do You have: 2 Feels Safe at Home: Yes Assistive Devices: BiPap Allergies Allergies Allergy/AdvReac Type Severity Reaction Status Date / Time ketorolac [From Toradol] Allergy Unknown Unknown Verified 01/15/22 12:21 Home Meds Home Medications Medication Instructions Recorded Confirmed Lactobacillus acidophilus 0 mmu cells PO QAM #0 07/31/21 01/15/22 acetaminophen 325 mg tablet 650 mg PO Q4 PRN MDD 3g 07/31/21 01/15/22 acetazolamide 500 mg 500 mg PO QAM 07/31/21 01/15/22 capsule,extended release aspirin 81 mg chewable tablet 81 mg PO QAM 07/31/21 01/15/22 atorvastatin 40 mg tablet 40 mg PO HS 07/31/21 01/15/22 cholecalciferol (vitamin D3) 25 25 mcg PO QAM 07/31/21 01/15/22 mcg (1,000 unit) tablet divalproex 250 mg tablet,delayed 250 mg PO BID 07/31/21 01/15/22 release donepezil 5 mg tablet (Aricept) 5 mg PO QAM 07/31/21 01/15/22 guaifenesin 600 mg tablet, 600 mg PO Q12H 07/31/21 01/15/22 extended release 12 hr insulin glargine 100 unit/mL (3 35 unit SUBCUT 07/31/21 01/15/22 mL) subcutaneous pen (Lantus Solostar U-100 Insulin) insulin regular human 100 unit/mL 1 sliding scale dose SUBCUT [facility] 07/31/21 01/15/22 injection solution (Humulin R Regular U-100 Insulin) metoprolol tartrate 25 mg tablet 12.5 mg PO BID 07/31/21 01/15/22 pediatric multivitamin 1 tab PO QAM 07/31/21 01/15/22 potassium chloride 20 mEq 20 meq PO WM 07/31/21 01/15/22 tablet,extended release quetiapine 50 mg tablet (Seroquel) 50 mg PO BID 07/31/21 01/15/22 sertraline 100 mg tablet 100 mg PO QAM 07/31/21 01/15/22 theophylline 600 mg 600 mg PO QAM 07/31/21 01/15/22 tablet,extended release 24 hr ipratropium 0.5 mg-albuterol 3 mg 3 ml INHALATION Q4H 01/15/22 01/15/22 (2.5 mg base)/3 mL nebulization soln terazosin 2 mg capsule 2 mg PO QAM 01/15/22 01/15/22 Previous Rx's Medication Instructions Recorded furosemide 20 mg tablet 20 mg PO QAM #30 tab 08/19/21 Results & Data (ED) Vital Signs Vital Signs - 24 hr 01/23/22 04:50 01/23/22 04:52 01/23/22 04:58 Temperature 37.8 C H Temperature Source Axillary Pulse Rate 108 H 112 H Pulse Rate from SpO2 Sensor Respiratory Rate 28 H 28 H Respiratory Effort / Characteristics Spontaneous Non-Labored Respiratory Depth Normal Shallow Shallow Respiratory Pattern Tachypnea Blood Pressure 98/67 L Blood Pressure Mean 77 Pulse Oximetry 98 94 Oxygen Delivery Method BiPAP Fraction of Inspired Oxygen 100 100 SaO2/FiO2 Ratio 94 Sepsis Recent Fever Within 48 Hours Yes Sepsis New/Unexplained Change in Mental Status No Sepsis Action Taken by Nursing No Action Required 01/23/22 05:01 01/23/22 05:35 01/23/22 05:45 Temperature Temperature Source Pulse Rate 113 H 111 H 107 H Pulse Rate from SpO2 Sensor 108 H 107 H Respiratory Rate 23 25 H 22 Respiratory Effort / Characteristics Respiratory Depth Respiratory Pattern Blood Pressure 109/80 126/89 Blood Pressure Mean 89 101 Pulse Oximetry 67 L 100 Oxygen Delivery Method Fraction of Inspired Oxygen SaO2/FiO2 Ratio Sepsis Recent Fever Within 48 Hours Sepsis New/Unexplained Change in Mental Status Sepsis Action Taken by Nursing 01/23/22 06:00 01/23/22 06:15 Temperature Temperature Source Pulse Rate 111 H 109 H Pulse Rate from SpO2 Sensor 111 H Respiratory Rate 36 H 32 H Respiratory Effort / Characteristics Respiratory Depth Respiratory Pattern Blood Pressure 121/69 Blood Pressure Mean 86 Pulse Oximetry 94 Oxygen Delivery Method BiPAP BiPAP Fraction of Inspired Oxygen SaO2/FiO2 Ratio Sepsis Recent Fever Within 48 Hours Sepsis New/Unexplained Change in Mental Status Sepsis Action Taken by Nursing Laboratory Data Result diagrams: 01/23/22 05:11 01/23/22 12:53 Lab Results 01/23/22 01/23/22 01/23/22 Range/Units 05:11 05:11 05:11 WBC 14.67 H (4.8-10.8) K/uL RBC 3.91 L (4.7-6.1) M/uL Hgb 10.5 L (14.0-18.0) g/dL Hct 37.3 L (42-52) % MCV 95.4 (80-100) fL MCH 26.9 (25-34) pg MCHC 28.2 L (32-36) g/dL RDW Std Deviation 62.7 H (36.4-46.3) fL RDW Coeff of Raquel 17.9 H (11.5-14.5) % Plt Count 339 (130-400) K/uL MPV 10.3 (7.4-10.4) fL Immature Gran % (Auto) 0.4 % Neut % (Auto) 86.0 % Lymph % (Auto) 6.1 % [place] % (Auto) 6.5 % Eos % (Auto) 1.0 % Baso % (Auto) 0.0 % Neut # (Auto) 12.60 H (1.4-6.5) K/uL Lymph # (Auto) 0.90 L (1.2-3.4) K/uL [place] # (Auto) 0.96 H (0.11-0.59) K/uL Eos # (Auto) 0.15 (0-0.5) K/uL Baso # (Auto) 0.00 (0-0.2) K/uL Immature Gran # (Auto) 0.06 H (0.00-0.02) K/uL ABG pH 7.28 L (7.35-7.45) ABG pCO2 84 H (35-46) mmHg ABG pO2 96 H (80-95) mmHg ABG HCO3 38 H (19-24) mmol/L ABG O2 Saturation 96.4 H (90-95) % ABG Base Excess 8.6 H (-9-1.8) mEq/L Vernon Test p (Pos) Oxygen Given 100% Fi02 Sodium 141 (136-145) mmol/L Potassium 4.4 (3.5-5.1) mmol/L Chloride 101 (98-107) mmol/L Carbon Dioxide 37 H (21-32) mmol/L Anion Gap 3 (3-11) BUN 11 (6-23) mg/dl Creatinine 0.45 L (0.6-1.4) mg/dl Est Cr Clr Drug Dosing 217.6 ml/min Est GFR ( Amer) 133.8 ml/min Est GFR (Non-Af Amer) 115.5 ml/min BUN/Creatinine Ratio 24.4 H (10-20) Glucose 158 H (70-99(Fasting)) mg/dl Lactate (0.4-2.0) mmol/L Calcium 9.1 (8.5-10.1) mg/dl Total Bilirubin 0.2 (0.2-1.0) mg/dl AST 10 L (13-39) U/L ALT 4 L (7-52) U/L Alkaline Phosphatase 54 (34-104) U/L Troponin I 0.03 (0-0.04) ng/ml Total Protein 6.8 (6.0-8.3) gm/dl Albumin 2.9 L (3.4-5.0) gm/dl Globulin 3.9 (2.5-4.0) gm/dl Albumin/Globulin Ratio 0.7 L (0.9-2) Lyme Disease IgG Ab (Negative) Lyme Disease IgM Ab (Negative) SARS-CoV-2, RNA, NAAT (NEGATIVE) 01/23/22 01/23/22 01/23/22 Range/Units 05:11 05:25 05:33 WBC (4.8-10.8) K/uL RBC (4.7-6.1) M/uL Hgb (14.0-18.0) g/dL Hct (42-52) % MCV (80-100) fL MCH (25-34) pg MCHC (32-36) g/dL RDW Std Deviation (36.4-46.3) fL RDW Coeff of Raquel (11.5-14.5) % Plt Count (130-400) K/uL MPV (7.4-10.4) fL Immature Gran % (Auto) % Neut % (Auto) % Lymph % (Auto) % [place] % (Auto) % Eos % (Auto) % Baso % (Auto) % Neut # (Auto) (1.4-6.5) K/uL Lymph # (Auto) (1.2-3.4) K/uL [place] # (Auto) (0.11-0.59) K/uL Eos # (Auto) (0-0.5) K/uL Baso # (Auto) (0-0.2) K/uL Immature Gran # (Auto) (0.00-0.02) K/uL ABG pH (7.35-7.45) ABG pCO2 (35-46) mmHg ABG pO2 (80-95) mmHg ABG HCO3 (19-24) mmol/L ABG O2 Saturation (90-95) % ABG Base Excess (-9-1.8) mEq/L Vernon Test (Pos) Oxygen Given Sodium (136-145) mmol/L Potassium (3.5-5.1) mmol/L Chloride (98-107) mmol/L Carbon Dioxide (21-32) mmol/L Anion Gap (3-11) BUN (6-23) mg/dl Creatinine (0.6-1.4) mg/dl Est Cr Clr Drug Dosing ml/min Est GFR ( Amer) ml/min Est GFR (Non-Af Amer) ml/min BUN/Creatinine Ratio (10-20) Glucose (70-99(Fasting)) mg/dl Lactate 0.8 (0.4-2.0) mmol/L Calcium (8.5-10.1) mg/dl Total Bilirubin (0.2-1.0) mg/dl AST (13-39) U/L ALT (7-52) U/L Alkaline Phosphatase (34-104) U/L Troponin I (0-0.04) ng/ml Total Protein (6.0-8.3) gm/dl Albumin (3.4-5.0) gm/dl Globulin (2.5-4.0) gm/dl Albumin/Globulin Ratio (0.9-2) Lyme Disease IgG Ab Negative (Negative) Lyme Disease IgM Ab Negative (Negative) SARS-CoV-2, RNA, NAAT NEGATIVE (NEGATIVE) Administered Medications Acetazolamide (Acetazolamide 500 Mg Capcr) 500 mg PO QAM JENNIFER Stop: 02/22/22 10:36 Last Admin: 01/23/22 12:51 Dose: 500 mg Documented by: [id number] Albuterol (Albut/Ipratrop 3mg/0.5mg Neb 3 Ml Vial) 3 ml NEB QIDR [facility]; Protocol Stop: 02/22/22 06:59 Last Admin: 01/23/22 19:15 Dose: 3 ml Documented by: [id number] Admin: 01/23/22 15:18 Dose: Not Given Documented by: [id number] Admin: 01/23/22 15:05 Dose: 3 ml Documented by: [id number] Admin: 01/23/22 10:50 Dose: 3 ml Documented by: [id number] Aspirin (Aspirin 81 Mg Chew) 81 [facility] Stop: 02/22/22 10:59 Last Admin: 01/23/22 12:52 Dose: 81 mg Documented by: [id number] Atorvastatin Calcium (Atorvastatin 40 Mg Tab) 40 mg PO HS [facility] Stop: 02/22/22 20:59 Last Admin: 01/23/22 22:24 Dose: Not Given Documented by: [id number] Divalproex Sodium (Divalproex Delay Release 250 Mg Tabec) 250 mg PO BID [facility] Stop: 02/22/22 10:59 Last Admin: 01/23/22 22:24 Dose: Not Given Documented by: [id number] Admin: 01/23/22 12:52 Dose: 250 mg Documented by: [id number] Donepezil HCl (Donepezil Hcl 5 Mg Tab) 5 mg PO [facility] Stop: 02/22/22 10:36 Last Admin: 01/23/22 12:52 Dose: 5 mg Documented by: [id number] Enoxaparin Sodium (Enoxaparin Inj 40 Mg/0.4 Ml Syr) 40 mg SQ Q12H [facility] Stop: 02/22/22 10:59 Last Admin: 01/23/22 22:17 Dose: 40 mg Documented by: [id number] Admin: 01/23/22 12:52 Dose: 40 mg Documented by: [id number] Guaifenesin (Guaifenesin 600 Mg Tabcr) 600 mg PO Q12H [facility] Stop: 02/22/22 10:59 Last Admin: 01/23/22 22:24 Dose: Not Given Documented by: [id number] Admin: 01/23/22 12:53 Dose: 600 mg Documented by: [id number] Piperacillin Sod/Tazobactam (Sod 4.5 gm/ Dextrose) 120 mls @ 30 mls/hr IV Q8H [facility]; Protocol Stop: 01/30/22 11:59 Last Admin: 01/23/22 22:17 Dose: 30 mls/hr Documented by: [id number] Infusion: 01/23/22 16:52 Dose: 0 mls/hr Documented by: [id number] Admin: 01/23/22 13:15 Dose: 30 mls/hr Documented by: [id number] Insulin Aspart (Insulin Aspart Per Unit) 0 units SC [facility] Stop: 02/22/22 10:36 Last Admin: 01/23/22 22:25 Dose: Not Given Documented by: [id number] Admin: 01/23/22 16:52 Dose: Not Given Documented by: [id number] Admin: 01/23/22 13:12 Dose: Not Given Documented by: [id number] Admin: 01/23/22 13:10 Dose: 1 units Documented by: [id number] Cosigned by: [id number] Quetiapine Fumarate (Quetiapine Fumarate 25 Mg Tablet) 50 mg PO BID [facility] Stop: 02/22/22 10:59 Last Admin: 01/23/22 22:23 Dose: Not Given Documented by: [id number] Admin: 01/23/22 12:53 Dose: 50 mg Documented by: [id number] Sertraline HCl (Sertraline Hcl 100 Mg Tablet) 100 mg PO [facility] Stop: 02/22/22 10:36 Last Admin: 01/23/22 12:52 Dose: 100 mg Documented by: [id number] Vitamin D (Cholecalciferol 1,000 Units 25 Mcg Tab) 1,000 units PO [facility] Stop: 02/22/22 10:59 Last Admin: 01/23/22 16:19 Dose: Not Given Documented by: [id number] Discontinued Medications Piperacillin Sod/Tazobactam Sod (Zosyn) 4.5 gm in 120 mls @ 240 mls/hr IV NOW ONE Stop: 01/23/22 05:51 Last Infusion: 01/23/22 06:52 Dose: 0 mls/hr Documented by: [id number] Admin: 01/23/22 05:37 Dose: 240 mls/hr Documented by: [id number] Vancomycin HCl 2,750 mg/ (Sodium Chloride) 555 mls @ 180 mls/hr IV TODAY@0700 JENNIFER Stop: 01/23/22 10:04 Last Infusion: 01/23/22 11:19 Dose: 0 mls/hr Documented by: [id number] Admin: 01/23/22 07:03 Dose: 180 mls/hr Documented by: [id number] Discharge Plan Visit Data Chief Complaint: Shortness of Breath/Dyspnea Stated Complaint: RESPIRATORY FAILURE/HYPOXIC ED Provider: aHnh Schumacher Discharge Problem: Acute hypoxemic respiratory failure, Right lower lobe pneumonia Patient Disposition: Admitted As Inpatient Discharge Instructions Interventions: ED Discharge Assessment Last Done: 01/23/22 07:35 Discharge Problem: Right lower lobe pneumonia Qualifiers: Pneumonia type: due to unspecified organism Qualified Code(s): J18.9 - Pneumonia, unspecified organism
[2022-01-23 05:20] LABS: Base Excess ABG 8.6 mEq/L (-9-1.8); HCO3 ABG 38 mmol/L (19-24); Oxygen Saturation ABG 96.4 % (90-95); PCO2 ABG 84 mmHg (35-46); PO2 ABG 96 mmHg (80-95); pH ABG 7.28 (7.35-7.45)
[2022-01-23] MEDS ORDERED: PIPERACILL/TAZOBAC CONSULT ACTIVE PRN ×2 (05:22→06:17)
[2022-01-23] MEDS ORDERED: PIPERACILLIN/TAZOBACTAM 4.5 GM/120 ML BAG IV ONE (05:22)
[2022-01-23 05:42] LABS: Troponin I 0.03 ng/ml (0-0.04)
[2022-01-23] MEDS ORDERED: VANCOMYCIN CONSULT ACTIVE PRN (06:17)
[2022-01-23 06:18] LABS: Hematocrit (blood only) 37.3 % (42-52); Hemoglobin 10.5 g/dL (14.0-18.0); Mean Corpuscular Hemoglobin 26.9 pg (25-34); Mean Corpuscular Hgb Conc 28.2 g/dL (32-36); Mean Corpuscular Volume 95.4 fL (80-100); Mean Platelet Volume 10.3 fL (7.4-10.4); Platelet Count 339 K/uL (130-400); RDW Coefficient of Variation 17.9 % (11.5-14.5); RDW Standard Deviation 62.7 fL (36.4-46.3); Red Blood Count 3.91 M/uL (4.7-6.1); White Blood Count 14.67 K/uL (4.8-10.8)
[2022-01-23] MEDS ORDERED: VANCOMYCIN HCL 1,000 MG in SODIUM CHLORIDE 0.9% 250 ML IV SCH (06:30)
--- NOTE | 2022-01-23 06:36 | History & Physical Report ---
Date of Service January 23, 2022 Assessment & Plan (1) Acute on chronic respiratory failure with hypoxia and hypercapnia: Plan: Acute on chronic respiratory failure with hypoxia and hypercapnia/right lower lobe aspiration pneumonia and effusion- Continue BiPAP with current settings 14/8/100%. ABG on the settings: pH 7.28, PCO2 84, PO2 96, O2 sat 96.4% Vancomycin IV per pharmacokinetic monitoring Zosyn 4.5 g IV every 8 hours per pharmacokinetic monitoring Duonebs every 4 hours while awake and every 2 hours when necessary. Continue theophylline, check level Consult pulmonology (2) Aspiration pneumonia of right lower lobe: Plan: See above Performed bedside swallowing test when taking medications, and if unable to take, will DC and consult speech therapy (3) HLD (hyperlipidemia): Plan: Continue atorvastatin 40 mg at bedtime (4) HTN (hypertension): Plan: Hold antihypertensives due to borderline blood pressure: Metoprolol tartrate, potassium chloride, furosemide and Terazosin (5) Diabetes: Plan: Hold regular insulin sliding scale and Lantus insulin until morning labs return Place on Accu-Cheks before meals and at bedtime with NovoLog coverage per scale (6) Seizure: Plan: Seizure disorder/anxiety depression/dementia- Continue divalproex, donepezil, Seroquel and sertraline (7) Anxiety and depression: Plan: See above (8) Dementia: Plan: See above History of Present Illness Chief Complaint: The patient presents to the emergency department as a transfer from [facility] due to acute hypoxia after taking off his BiPAP mask with pulse ox in the 60s. Primary Care Provider: [facility] The patient is a 71-year-old male with a past medical history including acute on chronic respiratory failure, aspiration pneumonia right lower lobe, dementia, CHF, diabetes, hyperlipidemia, hypertension, seizure disorder, and anxiety and depression. He was most recently brought to the emergency department at [facility] on 01/15/2022, where he was intubated and admitted to the ICU, and was then successfully extubated and was transferred to [facility] for rehab. This most recent hospitalization was from 01/15-01/20/2022. Upon discussion with patient in the emergency department this morning, the patient said "I want to live", when asked if he desired to be reintubated if need be. He will therefore be a full code Allergies Allergy/AdvReac Type Severity Reaction Status Date / Time ketorolac [From Toradol] Allergy Unknown Unknown Verified 01/15/22 12:21 Home Medications Medication Instructions Recorded Confirmed Type Lactobacillus acidophilus 0 mmu cells PO QAM #0 07/31/21 01/15/22 History acetaminophen 325 mg tablet 650 mg PO Q4 PRN MDD 3g 07/31/21 01/15/22 History acetazolamide 500 mg 500 mg PO QAM 07/31/21 01/15/22 History capsule,extended release aspirin 81 mg chewable tablet 81 mg PO QAM 07/31/21 01/15/22 History atorvastatin 40 mg tablet 40 mg PO HS 07/31/21 01/15/22 History cholecalciferol (vitamin D3) 25 25 mcg PO QAM 07/31/21 01/15/22 History mcg (1,000 unit) tablet divalproex 250 mg tablet,delayed 250 mg PO BID 07/31/21 01/15/22 History release donepezil 5 mg tablet (Aricept) 5 mg PO QAM 07/31/21 01/15/22 History guaifenesin 600 mg tablet, 600 mg PO Q12H 07/31/21 01/15/22 History extended release 12 hr insulin glargine 100 unit/mL (3 35 unit SUBCUT HS 07/31/21 01/15/22 History mL) subcutaneous pen (Lantus Solostar U-100 Insulin) insulin regular human 100 unit/mL 1 sliding scale dose SUBCUT ACHS 07/31/2101/03 History injection solution (Humulin R Regular U-100 Insulin) metoprolol tartrate 25 mg tablet 12.5 mg PO BID 07/31/21 01/15/22 History pediatric multivitamin 1 tab PO QAM 07/31/21 01/15/22 History potassium chloride 20 mEq 20 meq PO WM 07/31/21 01/15/22 History tablet,extended release quetiapine 50 mg tablet (Seroquel) 50 mg PO BID 07/31/21 01/15/22 History sertraline 100 mg tablet 100 mg PO QAM 07/31/21 01/15/22 History theophylline 600 mg 600 mg PO QAM 07/31/21 01/15/22 History tablet,extended release 24 hr furosemide 20 mg tablet 20 mg PO QAM #30 tab 08/19/21 01/15/22 Rx ipratropium 0.5 mg-albuterol 3 mg 3 ml INHALATION Q4H 01/15/22 01/15/22 History (2.5 mg base)/3 mL nebulization soln terazosin 2 mg capsule 2 mg PO QAM 01/15/22 01/15/22 History Past Med/Surg History Medical History CHF (congestive heart failure) Dementia Diabetes HLD (hyperlipidemia) HTN (hypertension) Hydronephrosis of right kidney No pertinent family history Obesity Obstructive lung disease Smoker Surgical History No pertinent past surgical history Social History Smoking Status: Former smoker Second Hand Exposure: No; Hx Alcohol Use: No Hx Substance Use: No Preferred Language: Romanian Communication Ability: Impaired Shoe Coverer Required: No Beliefs That Will Affect Care: None marital status: Current Living Situation: Personal Care Facility How many Children do You have: 2 Feels Safe at Home: Yes Assistive Devices: Glasses Review of Systems Review of Systems: The patient denies chest pain, palpitations, lower extremity swelling, sore throat, fevers, chills, sweats, nausea, vomiting, diarrhea , constipation, abdominal pain, pelvic pain, blood in urine or stool, dysuria, urinary frequency or urgency, memory loss, loss of consciousness, rash, abnormal bruising or bleeding, focal weakness, numbness or tingling in arms or legs, generalized arthralgias or myalgias, back or neck pain, or night sweats. The review of systems is otherwise negative other than for that already noted above, and at least 10 systems have been reviewed. Physical Exam Physical Exam: The patient is awake, alert and oriented 3, able to speak clearly with BiPAP mask on, otherwise normocephalic and atraumatic, lying in bed and in mild distress. HEENT--PERRL, EOMI, mucous membranes and oropharynx dry. Neck--supple. No JVD. No bruits. Thyroid normal, trachea midline, no adenopathy. Heart--normal S1 and S2. No murmurs, rubs or gallops. Lungs--coarse breath sounds bilaterally, right greater than left, with wheezes. Mild respiratory distress, no accessory muscle use, on BiPAP 14/8/100% Abdomen--normal bowel sounds and soft. Nontender. Nondistended, no hernias or masses, no organomegaly. Extremities--no cyanosis or clubbing. 1+ bilateral pretibial pitting edema. Dermatologic--normal skin turgor, normal color, no abnormal lymph nodes, no rash. Neurologic--cranial nerves II through XII grossly intact. Rheumatologic--limited exam due to respiratory status Psychiatric--normal affect. Results & Data Results & Data ([facility]) Vital Signs (Past 12 Hours) Vital Signs Temp Pulse Resp BP Pulse Ox 01/23/22 04:52 37.8 C H 112 H 28 H 98/67 L 94 01/23/22 04:50 108 H 28 H 98 Laboratory Results Laboratory Results WBC 14.67 K/uL (4.8-10.8) H 01/23/22 05:11 RBC 3.91 M/uL (4.7-6.1) L 01/23/22 05:11 Hgb 10.5 g/dL (14.0-18.0) L 01/23/22 05:11 Hct 37.3 % (42-52) L 01/23/22 05:11 MCV 95.4 fL (80-100) 01/23/22 05:11 MCH 26.9 pg (25-34) 01/23/22 05:11 MCHC 28.2 g/dL (32-36) L 01/23/22 05:11 RDW Std Deviation 62.7 fL (36.4-46.3) H 01/23/22 05:11 RDW Coeff of Raquel 17.9 % (11.5-14.5) H 01/23/22 05:11 Plt Count 339 K/uL (130-400) 01/23/22 05:11 MPV 10.3 fL (7.4-10.4) 01/23/22 05:11 ABG pH 7.28 (7.35-7.45) L 01/23/22 05:11 ABG pCO2 84 mmHg (35-46) H 01/23/22 05:11 ABG pO2 96 mmHg (80-95) H 01/23/22 05:11 ABG HCO3 38 mmol/L (19-24) H 01/23/22 05:11 ABG O2 Saturation 96.4 % (90-95) H 01/23/22 05:11 ABG Base Excess 8.6 mEq/L (-9-1.8) H 01/23/22 05:11 Vernon Test p (Pos) 01/23/22 05:11 Oxygen Given 100% Fi02 01/23/22 05:11 Lactate 0.8 mmol/L (0.4-2.0) 01/23/22 05:33 Troponin I 0.03 ng/ml (0-0.04) 01/23/22 05:11 SARS-CoV-2, RNA, NAAT NEGATIVE (NEGATIVE) 01/23/22 05:25 Code Status & VTE Plan Code Status Full code. There was question after last hospitalization where the patient wanted to be DNR. Patient emphatically stated "I want to live", when asked if he would want to be reintubated if need be VTE Prophylaxis Plan VTE Prophylaxis will be ordered: Yes PG Care Time/CCT Total # of Minutes Spent Total Time Spent with Patient: Total time spent is greater than 50% in coordination of care (as documented) at patient's floor/unit and/or counseling patient: Coding Level of Care Code 33609 Initial Inpt Care Lvl 3 Diagnoses Acute on chronic respiratory failure with hypoxia and hypercapnia J96.21; J96.22 Anxiety and depression F41.9; F32.A Aspiration pneumonia of right lower lobe J69.0 Aspiration pneumonia type: unspecified Seizure R56.9 HLD (hyperlipidemia) E78.5 HTN (hypertension) I10 Diabetes E11.9 Dementia F03.90 (1) Aspiration pneumonia of right lower lobe Aspiration pneumonia type: unspecified Qualified Code(s): J69.0 - Pneumonitis due to inhalation of food and vomit
[2022-01-23 06:45] LABS: Albumin Globulin Ratio 0.7 (0.9-2); Albumin Level 2.9 gm/dl (3.4-5.0); BUN Creatinine Ratio 24.4 (10-20); Bilirubin,Total 0.2 mg/dl (0.2-1.0); Calcium 9.1 mg/dl (8.5-10.1); Creatinine Clr Calc Pharmacy 217.6 ml/min; Est GFR (African American) 133.8 ml/min; Est GFR (Non-African American) 115.5 ml/min; Globulin 3.9 gm/dl (2.5-4.0); Potassium 4.4 mmol/L (3.5-5.1); Total Protein 6.8 gm/dl (6.0-8.3)
[2022-01-23 06:49] LABS: Eosinophils # (auto) 0.15 K/uL (0-0.5); Immature Granulocytes # (auto) 0.06 K/uL (0.00-0.02); Immature Granulocytes % (auto) 0.4 %; Lymphocytes % (auto) 6.1 %; Monocytes # (auto) 0.96 K/uL (0.11-0.59); Monocytes % (auto) 6.5 %
[2022-01-23] MEDS ORDERED: VANCOMYCIN HCL 2,750 MG in SODIUM CHLORIDE 0.9% 500 ML IV SCH (07:00)
--- NOTE | 2022-01-23 07:34 | XRay Report ---
XR chest 1V portable CLINICAL HISTORY: Dyspnea. COMPARISON STUDY: 01/17/2022 TECHNIQUE: 1 view of the chest FINDINGS: Single frontal view of the chest demonstrates the heart size to again be enlarged. Compared to previo us examination, there is worsening right lower lobe airspace opacity most characteristic of a pneumon ia. The remainder of the lungs are clear. There is again evidence for small right pleural effusion. T here is no evidence for left pleural effusion. There is no evidence for vascular congestion. There is no acute osseous pathology. IMPRESSION: 1. Interval worsening of right lower lobe airspace opacity most characteristic of pneumonia. 2. Small right pleural effusion is again seen as well. ACT 112: Negative or not required by law. Electronically signed by: Anirudh Armas M.D. 01/23/2022 7:33 AM
--- NOTE | 2022-01-23 08:50 | Electrocardiogram Report ---
Test Reason : Blood Pressure : / mmHG Vent. Rate : 109 BPM Atrial Rate : 109 BPM P-R Int : 212 ms QRS Dur : 098 ms QT Int : 328 ms P-R-T Axes : 056 064 048 degrees QTc Int : 441 ms Sinus tachycardia with 1st degree A-V block Abnormal ECG When compared with ECG of 15-JAN-2022 10:40, Premature ventricular complexes are no longer Present Confirmed by Rayshawn Jeter ([id number]) on 01/23/2022 8:49:58 AM Referred By: REFERRED SELF Confirmed By:Kevin Jeter
--- NOTE | 2022-01-23 09:08 | Pharmacy Report ---
Pharmacy Vanc AUC Short Note - Date of Service January 23, 2022 - Assessment & Plan Assessment 71 year old M started on vancomycin/zosyn for possible pneumonia. Patient presenting form [facility] due to hypoxia. Recently hospitalized 01/15 - 01/20 for respiratory issues, had been in ICU. Hx of MRSA, PA on previous cultures. Blood cultures currently pending. Plan Vancomycin * AUC/KERRI is the preferred PK/PD target for vancomycin * AUC guided dosing is effective and associated with decreased risk of nephrotoxicity compared to traditional trough targets * Received loading dose of vancomycin 2750 mg x 1, will start maintenance dose of vancomycin 1500 mg iv q 12 hrs * This vancomycin dosing is estimated to achieve a trough level of 18 mcg/mL is predicted to achieve target AUC/KERRI of 400-600 mg/L.hr and may be associated with a 15 % risk of nephrotoxicity * Will plan to order vancomycin level if continued >48 hrs Zosyn * 4.5 gm iv q 8 hr - appropriate for CrCl >20 / BMI >35 kg/m2 Pharmacy will continue to follow and will adjust dose/frequency as necessary. Thank you.
[2022-01-23 10:29] LABS: Lyme Ab IgG w/WB Rflx Negative (Negative); Lyme Ab IgM w/WB Rflx Negative (Negative)
[2022-01-23] MEDS ORDERED: acetaZOLAMIDE 500 MG CAPCR PO SCH (10:37)
[2022-01-23] MEDS ORDERED: GLUCOSE 10 TABS/TUBE PO PRN (10:37)
[2022-01-23] MEDS ORDERED: GLUCAGON FOR INJ 1 MG VIAL SQ PRN (10:37)
[2022-01-23] MEDS ORDERED: DEXTROSE 50% 50 ML SYRINGE IV PRN (10:37)
[2022-01-23] MEDS ORDERED: ONDANSETRON INJ 2 MG/ML 2 ML VIAL IV PRN (10:37)
[2022-01-23] MEDS ORDERED: GLUCOSE 40% GEL 15 GM TUBE PO PRN (10:37)
[2022-01-23] MEDS ORDERED: ACETAMINOPHEN 325 MG TAB PO PRN (10:37)
[2022-01-23] MEDS ORDERED: CARBOHYDRATES FOR HYPOGLYCEMIA PO PRN (10:37)
[2022-01-23] MEDS: ALBUT/IPRATROP 3MG/0.5MG NEB 3 ML VIAL NEB SCH ×4 (10:50→19:15)
[2022-01-23] MEDS: ASPIRIN 81 MG CHEW PO SCH (12:52)
[2022-01-23] MEDS: SERTRALINE HCL 100 MG TABLET PO SCH (12:52)
[2022-01-23] MEDS: DIVALPROEX DELAY RELEASE 250 MG TABEC PO SCH ×2 (12:52→22:24)
[2022-01-23] MEDS: ENOXAPARIN INJ 40 MG/0.4 ML SYR SQ SCH ×2 (12:52→22:17)
[2022-01-23] MEDS: DONEPEZIL HCL 5 MG TAB PO SCH (12:52)
[2022-01-23] MEDS: QUEtiapine FUMARATE 25 MG TABLET PO SCH ×2 (12:53→22:23)
[2022-01-23] MEDS: guaiFENesin 600 MG TABCR PO SCH ×2 (12:53→22:24)
[2022-01-23 13:08] LABS: Base Excess VBG 6.7 mEq/L; Oxygen Saturation VBG 67.1 %; pH VBG 7.21 (7.36-7.41)
[2022-01-23] MEDS: INSULIN ASPART PER UNIT SC SCH ×4 (13:10→22:25)
[2022-01-23] MEDS: PIPERACILLIN/TAZOBACTAM 4.5 GM in DEXTROSE 5% 100 ML IV SCH ×2 (13:15→22:17)
[2022-01-23 13:20] LABS: Calcium 9.2 mg/dl (8.5-10.1); Creatinine Clr Calc Pharmacy 190.3 ml/min; Est GFR (African American) 128.2 ml/min; Est GFR (Non-African American) 110.6 ml/min; Potassium 4.3 mmol/L (3.5-5.1)
--- NOTE | 2022-01-23 16:03 | Pulmonary Consultation ---
Date of Consultation January 23, 2022 Assessment & Plan (1) Acute on chronic respiratory failure with hypoxia and hypercapnia: (2) Aspiration pneumonia of right lower lobe: Aspiration pneumonia type: unspecified Qualified Code(s): J69.0 - Pneumonitis due to inhalation of food and vomit (3) Atelectasis, right: (4) Obstructive lung disease: (5) AMBERLY (obstructive sleep apnea): (6) Pickwickian syndrome: CT chest 01/15/2022 personally reviewed: Centrilobular emphysema appreciated bilaterally Patchy opacities appreciated in the right upper lobe Enlarged main pulmonary artery, small bilateral pleural effusion Elevated right hemidiaphragm with dependent atelectasis of the right lower lobe Cardiomegaly Insignificant mediastinal lymphadenopathy Chest x-ray 01/23/2022 personally reviewed: Portable film, fair inspiratory effort, right costophrenic angle is blunted, elevated right hemidiaphragm, mediastinal shift to the right. --Acute on chronic hypoxic hypercapnic respiratory failure Multifactorial AMBERLY/OHS Underlying COPD Keep O2 saturation between 88-92% --Right lower lobe atelectasis Probable aspiration Aspiration precautions Keep the bed elevated 35 degrees Flutter valve with CoughAssist --COPD with emphysema We will start the patient on Anoro to be used on a daily basis Patient is on chronic theophylline 600 mg In a patient who has history of seizure I do not think this is a good medication to be used Who recommended to titrated off by the outpatient manager pipeline --AMBERLY Continue with BiPAP Plan: Patient does seem to have right lower lobe collapse He is currently on Vanco and Zosyn We will order nasal MRSA. Nasal MRSA is negative can DC vancomycin Patient has likely aspiration of the right lower lobe. CAT scan done 01/15/2022 actually seems to be improved compared to October 2021 I will add CoughAssist along with flutter valve. Patient is still somnolent. We will get an ABG now and based on the ABG will change BiPAP setting. If there is any worsening in respiratory status or mental status, will intubate Follow-up theophylline level Given the aspiration BiPAP use needs to be done cautiously. Case discussed with Shanell Garrison Please note the above document was generated using voice recognition software. It may contain grammatical, syntax or spelling errors.Any formal questions or concerns about the content, text or information contained within the body of this dictation should be directly addressed to the provider for clarification. History of Present Illness Attending Physician: Silvano Estrada MD History of Present Illness 71-year-old male presents to the hospital because of hypoxia Past medical history: Diabetes, dyslipidemia, hypertension, seizure disorder, anxiety and depression, aspiration Patient was recently in the hospital 01/15-01/20. He was intubated at that time for altered mental status and successfully extubated. At the time of examination patient was on BiPAP 158, 50% saturating 97%. His respiratory was high teens to low 20s. He was not in any respiratory distress He was somnolent. Able to answer simple questions. Denied any chest pain. No headache. Denies any cough, he does complain of cough when he is eating. Denies any fever or chills. No dysuria, diarrhea. States that he is compliant with his BiPAP Please make note patient is a poor historian Social history: Former smoker Allergies Allergy/AdvReac Type Severity Reaction Status Date / Time ketorolac [From Toradol] Allergy Unknown Unknown Verified 01/15/22 12:21 Home Medications Medication Instructions Recorded Confirmed Type Lactobacillus acidophilus 0 mmu cells PO QAM #0 07/31/21 01/15/22 History acetaminophen 325 mg tablet 650 mg PO Q4 PRN MDD 3g 07/31/21 01/15/22 History acetazolamide 500 mg 500 mg PO QAM 07/31/21 01/15/22 History capsule,extended release aspirin 81 mg chewable tablet 81 mg PO QAM 07/31/21 01/15/22 History atorvastatin 40 mg tablet 40 mg PO HS 07/31/21 01/15/22 History cholecalciferol (vitamin D3) 25 25 mcg PO QAM 07/31/21 01/15/22 History mcg (1,000 unit) tablet divalproex 250 mg tablet,delayed 250 mg PO BID 07/31/21 01/15/22 History release donepezil 5 mg tablet (Aricept) 5 mg PO QAM 07/31/21 01/15/22 History guaifenesin 600 mg tablet, 600 mg PO Q12H 07/31/21 01/15/22 History extended release 12 hr insulin glargine 100 unit/mL (3 35 unit SUBCUT 07/31/21 01/15/22 History mL) subcutaneous pen (Lantus Solostar U-100 Insulin) insulin regular human 100 unit/mL 1 sliding scale dose SUBCUT ACHS 07/31/21 01/15/22 History injection solution (Humulin R Regular U-100 Insulin) metoprolol tartrate 25 mg tablet 12.5 mg PO BID 07/31/21 01/15/22 History pediatric multivitamin 1 tab PO QAM 07/31/21 01/15/22 History potassium chloride 20 mEq 20 meq PO WM 07/31/21 01/15/22 History tablet,extended release quetiapine 50 mg tablet (Seroquel) 50 mg PO BID 07/31/21 01/15/22 History sertraline 100 mg tablet 100 mg PO QAM 07/31/21 01/15/22 History theophylline 600 mg 600 mg PO QAM 07/31/21 01/15/22 History tablet,extended release 24 hr furosemide 20 mg tablet 20 mg PO QAM #30 tab 08/19/21 01/15/22 Rx ipratropium 0.5 mg-albuterol 3 mg 3 ml INHALATION Q4H 01/15/22 01/15/22 History (2.5 mg base)/3 mL nebulization soln terazosin 2 mg capsule 2 mg PO QAM 01/15/22 01/15/22 History Patient History Medical History CHF (congestive heart failure) Dementia Diabetes HLD (hyperlipidemia) HTN (hypertension) Hydronephrosis of right kidney No pertinent family history Obesity Obstructive lung disease Smoker Surgical History No pertinent past surgical history Social History Smoking Status: Former smoker Second Hand Exposure: No; Hx Alcohol Use: No Hx Substance Use: No Preferred Language: Yoruba Communication Ability: Effective Mathematician Required: No Beliefs That Will Affect Care: None marital status: Current Living Situation: Rehab How many Children do You have: 2 Feels Safe at Home: Yes Assistive Devices: BiPap, Oxygen - Continuous and Walker Review of Systems Review of Systems: All systems reviewed & are unremarkable except as noted in HPI & below Physical Exam Physical Exam: Constitutional: No acute distress HEENT: EOMI, PERRLA Respiratory system: Decreased air entry bilaterally, more decreased on the right side, no wheeze, rhonchi, positive crackles bilaterally CVS: S1-S2 positive, no murmurs or gallops Abdomen: Soft, nontender, nondistended, positive bowel sounds x4, obese Extremities: +2 pulses bilaterally radialis/ dorsalis pedis, no cyanosis, no edema Neuro: Somnolent but easily arousable, oriented to self Psych: Normal mood and affect G/U: No Valerio Skin: no rashes, warm and dry Lymphatic: no cervical or axillary lymphadenopathy Results & Data Results & Data ([facility]) Vital Signs (Past 12 Hours) Vital Signs Temp Pulse Pulse Resp BP BP Pulse Ox 01/23/22 15:06 90 89 24 100 01/23/22 11:39 37.0 C 92 H 22 119/73 94 01/23/22 10:52 98 H 18 100 01/23/22 10:51 98 H 18 100 01/23/22 09:00 98 H 01/23/22 08:21 36.8 C 102 H 29 H 118/65 98 01/23/22 07:35 102 H 26 H 111/69 94 01/23/22 07:28 105 H 26 H 93 01/23/22 07:15 108 H 30 H 90 01/23/22 07:00 109 H 27 H 124/87 85 L 01/23/22 06:45 106 H 24 94 01/23/22 06:30 107 H 29 H 115/74 88 L 01/23/22 06:15 109 H 32 H 94 01/23/22 06:00 111 H 36 H 121/69 01/23/22 05:45 107 H 22 100 01/23/22 05:35 111 H 25 H 126/89 67 L 01/23/22 05:01 113 H 23 109/80 01/23/22 04:52 37.8 C H 112 H 28 H 98/67 L 94 01/23/22 04:50 108 H 28 H 98 Laboratory Results 01/23/22 05:11 01/23/22 12:53 PG Care Time/CCT Total # of Minutes Spent Total Time Spent with Patient: Total time spent is greater than 50% in coordination of care (as documented) at patient's floor/unit and/or counseling patient: [place] [address] Inpt Consult Level 5 Patient Type New Diagnoses Acute on chronic respiratory failure with hypoxia and hypercapnia J96.21; J96.22 Aspiration pneumonia of right lower lobe J69.0 Aspiration pneumonia type: unspecified Atelectasis, right J98.11 Obstructive lung disease J44.9 AMBERLY (obstructive sleep apnea) G47.33 Pickwickian syndrome E66.2
--- NOTE | 2022-01-23 16:16 | History & Physical Bridge Note ---
Date of Service January 23, 2022 History & Physical Bridge Note I have examined the patient, reviewed the History & Physical and in the interval since the performance of the History & Physical I have noted the following changes of clinical significance: no changes noted Patient evaluated this morning in room 221. Got 5 days combo Zosyn/Ceftriaxone earlier in month for aspiration pneumonia. Discharged back to [facility] 01/20 and was found at [facility] complaining of shortness of breath and had removed his BiPAP and SpO2 in the 60s. Just got up from ER couple hours prior. Had been complaining he wanted something to eat but discussed checking repeat blood gases to see if able to remove for short time. Did remove to give medications and SpO2 dropped to 80s. Denies wanting to eat, and very fatigued appearing but no acute distress. SpO2 96% with BiPAP currently Pulmonary consulted - ordering repeat ABG (need abg not vbg due to chronically on acetazolamide), further recs following ABG results Added flutter valve/cough assist To remain level 1 at present time.
[2022-01-23] MEDS: CHOLECALCIFEROL 1,000 UNITS 25 MCG TAB PO SCH (16:19)
[2022-01-23 17:35] LABS: Base Excess ABG 9.4 mEq/L (-9-1.8); HCO3 ABG 39 mmol/L (19-24); Oxygen Saturation ABG 93.4 % (90-95); PCO2 ABG 86 mmHg (35-46); PO2 ABG 73 mmHg (80-95); pH ABG 7.27 (7.35-7.45)
[2022-01-23 17:36] LABS: Allen Test Pos (Pos)
[2022-01-23] MEDS ORDERED: VANCOMYCIN HCL 1,500 MG in SODIUM CHLORIDE 0.9% 500 ML IV SCH (18:00)
[2022-01-23] MEDS: ATORVASTATIN 40 MG TAB PO SCH (22:24)
[2022-01-24] MEDS: PIPERACILLIN/TAZOBACTAM 4.5 GM in DEXTROSE 5% 100 ML IV SCH ×3 (04:57→20:44)
[2022-01-24] MEDS: ALBUT/IPRATROP 3MG/0.5MG NEB 3 ML VIAL NEB SCH ×4 (07:11→19:14)
[2022-01-24] MEDS ORDERED: FUROSEMIDE INJ 20 MG/2 ML VIAL IV ONE (07:55)
--- NOTE | 2022-01-24 08:03 | Hospitalist Progress Note ---
Date of Service January 24, 2022 Assessment & Plan (1) Acute on chronic respiratory failure with hypoxia and hypercapnia: Plan: Acute on chronic respiratory failure with hypoxia and hypercapnia/right lower lobe aspiration pneumonia and effusion- Continue BiPAP with current settings 14/8/100%. ABG on the settings: pH 7.28, PCO2 84, PO2 96, O2 sat 96.4% on admission Placed on Vanco/Zosyn --> MRSA nasal swab negative, discontinued Vanco 01/23 Procal 0.14 (last admit 0.17) Continue Duonebs Q4hr, Q2h prn Theophylline level pending (was normal at 10.1 beginning of the month) --> LOW 3.7, has not been getting and per pulmonary notes not to use for pulmonary issues. Has not gotten since admission Pulmonary consulted --> Added cough assist, flutter valve, anoro inhaler BipAP increased to IPAP 18 with EPAP 8 last evening after worsening ABG ABG improved this morning, however still acidotic and per pulmonary to discontinue diamox and can consider lasix in the interim CXR also with improvement -->Patient did have desat this morning to 70-80s, unclear if adequate reading. Asked RN to obtain forehead probe. RT notified and after had good wave form and in 7-80s, did increase FiO2 to 65 from 40 this morning --> Discussed with pulm and if continued issue consider CT chest for further eval Weight up from d/c last admission, prior admits for CHF --> given dose of lasix 20mg IV x 1 now that BP improved (usually takes 20mg PO daily and continue IV daily as needed) Also will consult palliative given repeat admissions for similar issues/progressive decline - appreciate assistance (2) Aspiration pneumonia of right lower lobe: Plan: See above Speech therapy consulted given continued aspirations/level I to see if any benefit from FEES? Speech to bedside eval and keep posted. --> Has been chronically aspirating and continues to do so with sips of water when BiPAP off (3) HLD (hyperlipidemia): Plan: Continue atorvastatin 40 mg at bedtime (4) HTN (hypertension): Plan: Hold antihypertensives due to borderline blood pressure: Metoprolol tartrate, p otassium chloride, and Terazosin --> Did resume lasix but given 20mg IV x1 01/24 (5) Diabetes: Plan: Last A1c Aug 2021, 6.8 Utilizing sliding scale insulin while inpatient and holding off on lantus given not taking much PO and will monitor -- BSGs have been low 100s over past 24 hours (6) Seizure: Plan: Seizure disorder/anxiety depression/dementia- Continue divalproex, donepezil, Seroquel and sertraline as able -- discuss with nursing regarding need to continue the depakote/seroquel but could hold others for today given desaturations when off the BiPAP Prior valproic acid level last admission low at 30, but had been NPO due to aspiration/intubation --> on 250mg BID outpatient, may need to reach out to neuro for increased dosing? (7) Anxiety and depression: Plan: See above (8) Dementia: Plan: See above (9) Left knee pain: Plan: Reported discomfort to L knee with movement calves non-tender no erythema/open wound will attempt topical voltaren for now and monitor, can get imaging if needed however did not report any injury Plan: Lovenox for DVT Prophylaxis Admission and Anticipated Discharge Date Admission Date: January 23, 2022 Subjective Patient evaluated this morning. Continues to desat when BiPAP removed for short periods of time for pills. Had some sips of water this morning, choking/coughing per nursing but patient denies having issues when drinking fluids. Discussed pulmonary changing settings for BiPAP and will continue to monitor through today and maybe could consider giving something to eat but will consult with speech therapy prior. Of note, patient does have some complaints of L knee pain with movement. Denies any prior injury but has some darkened purple area to lateral aspect of L knee. Will obtain imaging if continued issue/worsening. Will order topical voltaren for now. Upon asking patient if he would want everything done regarding re-intubation if necessary, patient states "give me all you got". Review of Systems Review of Systems: All systems reviewed & are unremarkable except as noted in HPI & below Physical Exam Physical Exam: General: WD male sleeping in bed upon arrival, easily awoken and more alert this morning, no acute distress. BiPAP in place HEENT: pupils equal/reactive, EOMI, mm slightly dry Neck: trachea midline without deviation Resp: coarse BS bilaterally, R>L, decreased air entry to the right, no appreciable wheezes, no accessory muscle use, on BIPAP CV: RRR, no m/r/g GI: +BS, obese, non-tender, no guarding : no wilkerson Skin: warm, dry MSK: slight ecchymosis to lateral aspect L knee, tender to palpation. no openings/drainage/warmth or erythema Psych: alert, oriented x 3 Results & Data Results & Data ([facility]) Vital Signs (Past 12 Hours) Vital Signs Temp Pulse Pulse Resp BP Pulse Ox 01/24/22 07:14 86 19 94 01/24/22 07:11 86 19 94 01/24/22 06:16 75 01/24/22 03:35 36.3 C L 78 17 134/85 100 01/23/22 23:56 36.3 C L 75 18 133/84 95 01/23/22 23:08 75 16 95 01/23/22 19:59 36.4 C L 73 19 126/83 95 Laboratory Results 01/24/22 01/24/22 01/23/22 Range/Units 07:32 02:14 20:04 ABG pH ABG pCO2 ABG pO2 ABG HCO3 ABG O2 Saturation ABG Base Excess Vernon Test VBG pH (7.36-7.41) VBG pCO2 (38-50) mmHg VBG pO2 mmHg VBG HCO3 mmol/L VBG O2 Saturation % VBG Base Excess mEq/L Barometric Pressure mm/Hg Oxygen Given Sodium (136-145) mmol/L Potassium (3.5-5.1) mmol/L Chloride (98-107) mmol/L Carbon Dioxide (21-32) mmol/L Anion Gap (3-11) BUN (6-23) mg/dl Creatinine (0.6-1.4) mg/dl Est Cr Clr Drug Dosing ml/min Est GFR ( Amer) ml/min Est GFR (Non-Af Amer) ml/min BUN/Creatinine Ratio (10-20) Glucose (70-99(Fasting)) mg/dl POC Glucose 110 H 100 H (70-99) mg/dl Calcium (8.5-10.1) mg/dl Troponin I < 0.03 (0-0.04) ng/ml Procalcitonin (0-0.5) ng/ml TSH (0.300-4.500) uIu/ml Nasal Screen MRSA (PCR) (Negative) Lyme Disease IgG Ab (Negative) Lyme Disease IgM Ab (Negative) 01/23/22 01/23/22 01/23/22 Range/Units 18:49 17:23 16:44 ABG pH 7.27 L ABG pCO2 86 H ABG pO2 73 L ABG HCO3 39 H ABG O2 Saturation 93.4 ABG Base Excess 9.4 H Vernon Test Pos VBG pH (7.36-7.41) VBG pCO2 (38-50) mmHg VBG pO2 mmHg VBG HCO3 mmol/L VBG O2 Saturation % VBG Base Excess mEq/L Barometric Pressure 733.6 mm/Hg Oxygen Given 70% Sodium (136-145) mmol/L Potassium (3.5-5.1) mmol/L Chloride (98-107) mmol/L Carbon Dioxide (21-32) mmol/L Anion Gap (3-11) BUN (6-23) mg/dl Creatinine (0.6-1.4) mg/dl Est Cr Clr Drug Dosing ml/min Est GFR ( Amer) ml/min Est GFR (Non-Af Amer) ml/min BUN/Creatinine Ratio (10-20) Glucose (70-99(Fasting)) mg/dl POC Glucose (70-99) mg/dl Calcium (8.5-10.1) mg/dl Troponin I < 0.03 (0-0.04) ng/ml Procalcitonin (0-0.5) ng/ml TSH 2.366 (0.300-4.500) uIu/ml Nasal Screen MRSA (PCR) (Negative) Lyme Disease IgG Ab (Negative) Lyme Disease IgM Ab (Negative) 01/23/22 01/23/22 01/23/22 Range/Units 16:40 16:34 16:32 ABG pH Cancelled ABG pCO2 Cancelled ABG pO2 Cancelled ABG HCO3 Cancelled ABG O2 Saturation Cancelled ABG Base Excess Cancelled Vernon Test Cancelled VBG pH (7.36-7.41) VBG pCO2 (38-50) mmHg VBG pO2 mmHg VBG HCO3 mmol/L VBG O2 Saturation % VBG Base Excess mEq/L Barometric Pressure Cancelled mm/Hg Oxygen Given Cancelled Sodium (136-145) mmol/L Potassium (3.5-5.1) mmol/L Chloride (98-107) mmol/L Carbon Dioxide (21-32) mmol/L Anion Gap (3-11) BUN (6-23) mg/dl Creatinine (0.6-1.4) mg/dl Est Cr Clr Drug Dosing ml/min Est GFR ( Amer) ml/min Est GFR (Non-Af Amer) ml/min BUN/Creatinine Ratio (10-20) Glucose (70-99(Fasting)) mg/dl POC Glucose 125 H (70-99) mg/dl Calcium (8.5-10.1) mg/dl Troponin I (0-0.04) ng/ml Procalcitonin 0.14 (0-0.5) ng/ml TSH (0.300-4.500) uIu/ml Nasal Screen MRSA (PCR) (Negative) Lyme Disease IgG Ab (Negative) Lyme Disease IgM Ab (Negative) 01/23/22 01/23/22 01/23/22 Range/Units 12:53 12:53 12:46 ABG pH ABG pCO2 ABG pO2 ABG HCO3 ABG O2 Saturation ABG Base Excess Vernon Test VBG pH 7.21 L (7.36-7.41) VBG pCO2 96 H (38-50) mmHg VBG pO2 40 mmHg VBG HCO3 38 mmol/L VBG O2 Saturation 67.1 % VBG Base Excess 6.7 mEq/L Barometric Pressure 735.6 mm/Hg Oxygen Given Sodium 142 (136-145) mmol/L Potassium 4.3 (3.5-5.1) mmol/L Chloride 101 (98-107) mmol/L Carbon Dioxide 40 H (21-32) mmol/L Anion Gap 1 L (3-11) BUN 10 (6-23) mg/dl Creatinine 0.50 L (0.6-1.4) mg/dl Est Cr Clr Drug Dosing 190.3 ml/min Est GFR ( Amer) 128.2 ml/min Est GFR (Non-Af Amer) 110.6 ml/min BUN/Creatinine Ratio 20.0 (10-20) Glucose 140 H (70-99(Fasting)) mg/dl POC Glucose 152 H (70-99) mg/dl Calcium 9.2 (8.5-10.1) mg/dl Troponin I (0-0.04) ng/ml Procalcitonin (0-0.5) ng/ml TSH (0.300-4.500) uIu/ml Nasal Screen MRSA (PCR) (Negative) Lyme Disease IgG Ab (Negative) Lyme Disease IgM Ab (Negative) 01/23/22 01/23/22 01/23/22 Range/Units 11:16 08:10 05:11 ABG pH ABG pCO2 ABG pO2 ABG HCO3 ABG O2 Saturation ABG Base Excess Vernon Test VBG pH (7.36-7.41) VBG pCO2 (38-50) mmHg VBG pO2 mmHg VBG HCO3 mmol/L VBG O2 Saturation % VBG Base Excess mEq/L Barometric Pressure mm/Hg Oxygen Given Sodium (136-145) mmol/L Potassium (3.5-5.1) mmol/L Chloride (98-107) mmol/L Carbon Dioxide (21-32) mmol/L Anion Gap (3-11) BUN (6-23) mg/dl Creatinine (0.6-1.4) mg/dl Est Cr Clr Drug Dosing ml/min Est GFR ( Amer) ml/min Est GFR (Non-Af Amer) ml/min BUN/Creatinine Ratio (10-20) Glucose (70-99(Fasting)) mg/dl POC Glucose (70-99) mg/dl Calcium (8.5-10.1) mg/dl Troponin I < 0.03 (0-0.04) ng/ml Procalcitonin (0-0.5) ng/ml TSH (0.300-4.500) uIu/ml Nasal Screen MRSA (PCR) Negative (Negative) Lyme Disease IgG Ab Negative (Negative) Lyme Disease IgM Ab Negative (Negative) Diagnostic Findings Chest X-Ray 01/24/22 06:00 XR chest 1V portable CLINICAL HISTORY: Follow-up right lower lobe airspace opacity and pleural effusion. COMPARISON STUDY: 01/23/2022 TECHNIQUE: 1 view of the chest FINDINGS: Single frontal view of the chest demonstrates the heart to again be enlarged. Compared to previous examination, the right lower lobe opacity is no longer seen. This probably represented a combination of fluid within the fissure and right basilar atelectasis. There is persistent small right pleural effusion. The remainder of the lungs are clear of alveolar opacities. There is no evidence for left pleural effusion. There is no evidence for vascular congestion. There is no acute osseous pathology. IMPRESSION: 1. Compared to the previous examination, right lower lobe air space opacity is no longer seen and most likely represented a combination of pleural fluid within the fissure and right basilar atelectasis. 2. There is persistent small right pleural effusion. ACT 112: Negative or not required by law. Electronically signed by: Anirudh Armas M.D. 01/24/2022 8:17 AM PG Care Time/CCT Total # of Minutes Spent Total Time Spent with Patient: Total time spent is greater than 50% in coordination of care (as documented) at patient's floor/unit and/or counseling patient: Coding Level of Care Code 28254 Subseq Hosp Care Lvl 3 Diagnoses Acute on chronic respiratory failure with hypoxia and hypercapnia J96.21; J96.22 Aspiration pneumonia of right lower lobe J69.0 Aspiration pneumonia type: unspecified HLD (hyperlipidemia) E78.5 HTN (hypertension) I10 Diabetes E11.9 Seizure R56.9 Anxiety and depression F41.9; F32.A Dementia F03.90 Left knee pain M25.562 (1) Aspiration pneumonia of right lower lobe Aspiration pneumonia type: unspecified Qualified Code(s): J69.0 - Pneumonitis due to inhalation of food and vomit
--- NOTE | 2022-01-24 08:18 | XRay Report ---
XR chest 1V portable CLINICAL HISTORY: Follow-up right lower lobe airspace opacity and pleural effusion. COMPARISON STUDY: 01/23/2022 TECHNIQUE: 1 view of the chest FINDINGS: Single frontal view of the chest demonstrates the heart to again be enlarged. Compared to previous ex amination, the right lower lobe opacity is no longer seen. This probably represented a combination of fluid within the fissure and right basilar atelectasis. There is persistent small right pleural effu marisol. The remainder of the lungs are clear of alveolar opacities. There is no evidence for left pleural ef fusion. There is no evidence for vascular congestion. There is no acute osseous pathology. IMPRESSION: 1. Compared to the previous examination, right lower lobe air space opacity is no longer seen and mos t likely represented a combination of pleural fluid within the fissure and right basilar atelectasis. 2. There is persistent small right pleural effusion. ACT 112: Negative or not required by law. Electronically signed by: Anirudh Armas M.D. 01/24/2022 8:17 AM
[2022-01-24] MEDS: INSULIN ASPART PER UNIT SC SCH ×4 (08:19→20:46)
[2022-01-24 08:20] LABS: Eosinophils # (auto) 0.12 K/uL (0-0.5); Eosinophils % (auto) 1.7 %; Hematocrit (blood only) 35.3 % (42-52); Hemoglobin 9.7 g/dL (14.0-18.0); Immature Granulocytes # (auto) 0.01 K/uL (0.00-0.02); Immature Granulocytes % (auto) 0.1 %; Lymphocytes # (auto) 0.92 K/uL (1.2-3.4); Lymphocytes % (auto) 12.7 %; Mean Corpuscular Hemoglobin 26.6 pg (25-34); Mean Corpuscular Hgb Conc 27.5 g/dL (32-36); Mean Corpuscular Volume 96.7 fL (80-100); Mean Platelet Volume 10.1 fL (7.4-10.4); Monocytes # (auto) 0.49 K/uL (0.11-0.59); Monocytes % (auto) 6.8 %; Neutrophils # (auto) 5.69 K/uL (1.4-6.5); Neutrophils % (auto) 78.7 %; Platelet Count 267 K/uL (130-400); RDW Coefficient of Variation 17.7 % (11.5-14.5); RDW Standard Deviation 62.5 fL (36.4-46.3); Red Blood Count 3.65 M/uL (4.7-6.1); White Blood Count 7.23 K/uL (4.8-10.8)
[2022-01-24] MEDS: UMECLIDINIUM/VILANTEROL 62.5/25MCG 7 PUFFS/INHALER INH SCH (08:20)
[2022-01-24] MEDS: DONEPEZIL HCL 5 MG TAB PO SCH (08:20)
[2022-01-24] MEDS: CHOLECALCIFEROL 1,000 UNITS 25 MCG TAB PO SCH (08:20)
[2022-01-24] MEDS: SERTRALINE HCL 100 MG TABLET PO SCH (08:20)
[2022-01-24 08:21] LABS: Base Excess ABG 9.6 mEq/L (-9-1.8); HCO3 ABG 38 mmol/L (19-24); Oxygen Saturation ABG 98.2 % (90-95); PCO2 ABG 71 mmHg (35-46); PO2 ABG 122 mmHg (80-95); pH ABG 7.34 (7.35-7.45)
[2022-01-24 08:22] LABS: Allen Test Pos (Pos)
[2022-01-24] MEDS: ASPIRIN 81 MG CHEW PO SCH (08:39)
[2022-01-24] MEDS: DIVALPROEX DELAY RELEASE 250 MG TABEC PO SCH ×2 (08:39→20:45)
[2022-01-24] MEDS: QUEtiapine FUMARATE 25 MG TABLET PO SCH ×2 (08:39→20:45)
[2022-01-24 09:03] LABS: Albumin Globulin Ratio 0.7 (0.9-2); Albumin Level 2.9 gm/dl (3.4-5.0); BUN Creatinine Ratio 21.4 (10-20); Bilirubin,Total 0.2 mg/dl (0.2-1.0); Calcium 9.4 mg/dl (8.5-10.1); Creatinine Clr Calc Pharmacy 172.9 ml/min; Est GFR (African American) 122.3 ml/min; Est GFR (Non-African American) 105.5 ml/min; Globulin 3.9 gm/dl (2.5-4.0); Magnesium 2.2 mg/dl (1.7-2.4); Potassium 4.7 mmol/L (3.5-5.1); Total Protein 6.8 gm/dl (6.0-8.3)
[2022-01-24] MEDS: guaiFENesin 600 MG TABCR PO SCH ×2 (10:22→22:32)
--- NOTE | 2022-01-24 10:51 | Pulmonology Progress Note ---
Date of Service January 24, 2022 Assessment & Plan (1) Acute on chronic respiratory failure with hypoxia and hypercapnia: (2) Aspiration pneumonia of right lower lobe: Aspiration pneumonia type: unspecified Qualified Code(s): J69.0 - Pneumonitis due to inhalation of food and vomit (3) Atelectasis, right: (4) Obstructive lung disease: (5) AMBERLY (obstructive sleep apnea): (6) Pickwickian syndrome: Plan: CT chest 01/15/2022 personally reviewed: Centrilobular emphysema appreciated bilaterally Patchy opacities appreciated in the right upper lobe Enlarged main pulmonary artery, small bilateral pleural effusion Elevated right hemidiaphragm with dependent atelectasis of the right lower lobe Cardiomegaly Insignificant mediastinal lymphadenopathy Chest x-ray 01/23/2022 personally reviewed: Portable film, fair inspiratory effort, right costophrenic angle is blunted, elevated right hemidiaphragm, mediastinal shift to the right. --Acute on chronic hypoxic hypercapnic respiratory failure Multifactorial AMBERLY/OHS Underlying COPD Keep O2 saturation between 88-92% --Right lower lobe atelectasis Probable aspiration Aspiration precautions Keep the bed elevated 35 degrees Flutter valve with CoughAssist --COPD with emphysema Continue with Anoro Patient is on chronic theophylline 600 mg In a patient who has history of seizure I do not think this is a good medication to be used Who recommended to titrated off by the outpatient refractory grinder operator --AMBERLY Continue with BiPAP Plan: Continue with CoughAssist and flutter valve ABG shows improvement in the pH. But it is still acidotic. I will discontinue acetazolamide Can consider giving Lasix in the interim Given the aspiration BiPAP use needs to be done cautiously. Please note the above document was generated using voice recognition software. It may contain grammatical, syntax or spelling errors.Any formal questions or concerns about the content, text or information contained within the body of this dictation should be directly addressed to the provider for clarification. Admission and Anticipated Discharge Date Admission Date: January 23, 2022 Subjective Patient seen and examined at bedside. No acute distress, no adverse events overnight. Patient was compliant with BiPAP Last night patient ABG was still acidotic I increase the IPAP to 18 with EPAP of 8 Today's ABG showed improvement in the pH He is more alert today. Answering all the questions appropriately. Review of Systems Review of Systems: All systems reviewed & are unremarkable except as noted in Subjective Physical Exam Physical Exam: Constitutional: No acute distress HEENT: EOMI, PERRLA Respiratory system: Decreased air entry bilaterally, more decreased on the right side, no wheeze, rhonchi, positive crackles bilaterally CVS: S1-S2 positive, no murmurs or gallops Abdomen: Soft, nontender, nondistended, positive bowel sounds x4, obese Extremities: +2 pulses bilaterally radialis/ dorsalis pedis, no cyanosis, no edema Neuro: Awake alert oriented to self and place Psych: Normal mood and affect G/U: No Valerio Skin: no rashes, warm and dry Lymphatic: no cervical or axillary lymphadenopathy Results & Data Results & Data ([facility]) Vital Signs (Past 12 Hours) Vital Signs Temp Pulse Pulse Resp BP Pulse Ox 01/24/22 08:17 36.5 C 90 16 120/59 L 88 L 01/24/22 07:14 86 19 94 01/24/22 07:11 86 19 94 01/24/22 06:16 75 01/24/22 03:35 36.3 C L 78 17 134/85 100 01/23/22 23:56 36.3 C L 75 18 133/84 95 01/23/22 23:08 75 16 95 Laboratory Results 01/24/22 08:04 01/24/22 08:04 PG Care Time/CCT Total # of Minutes Spent Total Time Spent with Patient: Total time spent is greater than 50% in coordination of care (as documented) at patient's floor/unit and/or counseling patient: Coding Level of Care Code 71932 Subseq Hosp Care Lvl 2 Diagnoses Acute on chronic respiratory failure with hypoxia and hypercapnia J96.21; J96.22 Aspiration pneumonia of right lower lobe J69.0 Aspiration pneumonia type: unspecified Atelectasis, right J98.11 Obstructive lung disease J44.9 AMBERLY (obstructive sleep apnea) G47.33 Pickwickian syndrome E66.2
--- NOTE | 2022-01-24 10:54 | Palliative Care Consultation ---
Date of Consultation January 24, 2022 Assessment & Plan (1) Palliative care encounter: Mr. Dale Harvey is a 71 year old male who presented to the [facility] from [facility] with shortness of breath and lethargy. He was diagnosed with acute on chronic respiratory failure. He has an extensive PMH that includes: CHF, HLD, HTN, seizure, anxiety, depression, recurrent aspiration pneumonia, and senile degeneration of the brain. He had a recent inpatient hospitalization where he was admitted from January 15- January 20. During that admission he was intubated and extubated. At that time, he was transferred when stable to [facility] for skilled rehab. This admission he has uncompensated respiratory acidosis as evidence by his hypercapnia. There has been previous conversations held with the patient who indicted that he would 'like to live'. Currently he is a full code. Palliative medicine was consulted to discuss overall goals of care. I met with Dale in his room. He was lying flat on his back, in no apparent distress, but was lethargic throughout my encounter. He was arousable to verbal stimuli and was able to have a conversation with me through his Bipap. Apparently, he was on 100% FiO2 on his Bipap yesterday, but has been trending down, now at an FiO2 of 40%. He states he does not remember being intubated. He did verbalize understanding that this hypercapnic/respiratory failure exacerbation is likely to occur again in the near future and explained that it is easier to have these types of conversations when it is not a crisis situation where 'you are struggling to breathe'. After talking about whether or not he would like to be reintubated, he shrugged his shoulders and said 'I don't know' but I'd like to try'. I did explain Roxanol and how that can help with air hunger when he starts to feel short of breath, of course recognizing that this would likely eventually lead to his demise. While he is currently a full code, I would advise against opioid administration as it will lead to respiratory depression. I did reach out to the patients , Sasha, at [phone] and initially left a VM but was able to talk with her at length on the phone. suggested that we see how the next day or two go and then have a meeting with Sasha Hunter, and her two sons. She will reach out to them to determine their work schedule, but likely will work for a conversation. She does recognize that he is nearing the end stage of his COPD and feels so guilty that he cannot be at home. She said it has been nearly a year since he has been home. We discussed the unfortunate cycle of admissions and treatment that he is in due to the nature of his illness. We did discuss a conservative approach to his care and what that entails. Palliative will follow. Pt to remain a Full Code for now. (2) Hypercapnic respiratory failure: (3) Weakness: (4) Anxiety: History of Present Illness Reason for Consultation: goals of care Requesting Physician: Shanell Garrison PA-C Attending Physician: Babar Hummel History of Present Illness Mr. Dale Harvey is a 71 year old male who presented to the [facility] from [facility] with shortness of breath and lethargy. He was diagnosed with acute on chronic respiratory failure. He has an extensive PMH that includes: CHF, HLD, HTN, seizure, anxiety, depression, recurrent aspiration pneumonia, and senile degeneration of the brain. He had a recent inpatient hospitalization where he was admitted from January 15- January 20. During that admission he was intubated and extubated. At that time, he was transferred when stable to [facility] for skilled rehab. This admission he has uncompensated respiratory acidosis as evidence by his hypercapnia. There has been previous conversations held with the patient who indicted that he would 'like to live'. Currently he is a full code. Palliative medicine was consulted to discuss overall goals of care. Please see A/P for further details. Thanks for involving Mr. Harvey with our service. Allergies Allergy/AdvReac Type Severity Reaction Status Date / Time ketorolac [From Toradol] Allergy Unknown Unknown Verified 01/15/22 12:21 Home Medications Medication Instructions Recorded Confirmed Type Lactobacillus acidophilus 0 mmu cells PO QAM #0 07/31/21 01/15/22 History acetaminophen 325 mg tablet 650 mg PO Q4 PRN MDD 3g 07/31/21 01/15/22 History acetazolamide 500 mg 500 mg PO QAM 07/31/21 01/15/22 History capsule,extended release aspirin 81 mg chewable tablet 81 mg PO QAM 07/31/21 01/15/22 History atorvastatin 40 mg tablet 40 mg PO HS 07/31/21 01/15/22 History cholecalciferol (vitamin D3) 25 25 mcg PO QAM 07/31/21 01/15/22 History mcg (1,000 unit) tablet divalproex 250 mg tablet,delayed 250 mg PO BID 07/31/21 01/15/22 History release donepezil 5 mg tablet (Aricept) 5 mg PO QAM 07/31/21 01/15/22 History guaifenesin 600 mg tablet, 600 mg PO Q12H 07/31/21 01/15/22 History extended release 12 hr insulin glargine 100 unit/mL (3 35 unit SUBCUT HS 07/31/21 01/15/22 History mL) subcutaneous pen (Lantus Solostar U-100 Insulin) insulin regular human 100 unit/mL 1 sliding scale dose SUBCUT ACHS 07/31/21 01/15/22 History injection solution (Humulin R Regular U-100 Insulin) metoprolol tartrate 25 mg tablet 12.5 mg PO BID 07/31/21 01/15/22 History pediatric multivitamin 1 tab PO QAM 07/31/21 01/15/22 History potassium chloride 20 mEq 20 meq PO WM 07/31/21 01/15/22 History tablet,extended release quetiapine 50 mg tablet (Seroquel) 50 mg PO BID 07/31/21 01/15/22 History sertraline 100 mg tablet 100 mg PO QAM 07/31/21 01/15/22 History theophylline 600 mg 600 mg PO QAM 07/31/21 01/15/22 History tablet,extended release 24 hr furosemide 20 mg tablet 20 mg PO QAM #30 tab 08/19/21 01/15/22 Rx ipratropium 0.5 mg-albuterol 3 mg 3 ml INHALATION Q4H 01/15/22 01/15/22 History (2.5 mg base)/3 mL nebulization soln terazosin 2 mg capsule 2 mg PO QAM 01/15/22 01/15/22 History Patient History Medical History (Updated 01/24/22 @ 10:59 by MICKEY Ayala) Anxiety CHF (congestive heart failure) Dementia Diabetes HLD (hyperlipidemia) HTN (hypertension) Hydronephrosis of right kidney No pertinent family history Obesity Obstructive lung disease Palliative care encounter Smoker Weakness Surgical History No pertinent past surgical history Social History Smoking Status: Former smoker Second Hand Exposure: No; Hx Alcohol Use: No Hx Substance Use: No Preferred Language: [place] Communication Ability: Effective Slitter And Rewinder Required: No Beliefs That Will Affect Care: None marital status: Current Living Situation: Rehab How many Children do You have: 2 Feels Safe at Home: Yes Assistive Devices: Oxygen - Continuous Review of Systems Review of Systems: [place] System Assessment Scale: Pain: 1/3 SOB: 1/3 Tiredness: 2/3 Anxiety: 1/3 Palliative Performance Scale: 40% Physical Exam Constitutional: + ill appearing, + frail appearing, + disheveled and cooperative ENMT: Mouth: + muffled voice (Bipap) and + dry oral mucous membranes Respiratory: + uses accessory muscles, + cough and able to speak in complete sentences Auscultation: + diminished lung sounds and + wheezes Cardiovascular: Rate/Rhythm: regular rate and regular rhythm Extremities: normal capillary refill; no edema Gastrointestinal (Abdomen): Inspection/Auscultation: normal bowel sounds and + significant pannus Percussion/Palpation: abdomen soft Skin: + ecchymosis and + pallor Psychiatric: Orientation: alert, oriented x 3 and cooperative Insight: + limited insight Judgement: + limited judgement Results & Data ([facility]) Vital Signs (Past 12 Hours) Vital Signs Temp Pulse Pulse Resp BP Pulse Ox 01/24/22 08:17 36.5 C 90 16 120/59 L 88 L 01/24/22 07:14 86 19 94 01/24/22 07:11 86 19 94 01/24/22 06:16 75 01/24/22 03:35 36.3 C L 78 17 134/85 100 01/23/22 23:56 36.3 C L 75 18 133/84 95 01/23/22 23:08 75 16 95 PG Care Time/CCT Total # of Minutes Spent Total Time Spent with Patient: Total time spent is greater than 50% in coordination of care (as documented) at patient's floor/unit and/or counseling patient: 100 minutes Coding Level of Care Code 16598 Initial Inpt Care Lvl 3 Diagnoses Palliative care encounter Z51.5 Hypercapnic respiratory failure J96.92 Weakness R53.1 Anxiety F41.9 Time Spent (min) 100
[2022-01-24] MEDS: ENOXAPARIN INJ 40 MG/0.4 ML SYR SQ SCH ×2 (11:53→22:31)
[2022-01-24] MEDS: DICLOFENAC SOD 1% GEL 100 GM TUBE EXT SCH ×2 (13:02→20:45)
[2022-01-24] MEDS: ATORVASTATIN 40 MG TAB PO SCH (20:44)
[2022-01-25] MEDS: PIPERACILLIN/TAZOBACTAM 4.5 GM in DEXTROSE 5% 100 ML IV SCH ×3 (04:48→21:29)
[2022-01-25 06:25] LABS: Base Excess ABG 10.5 mEq/L (-9-1.8); HCO3 ABG 40 mmol/L (19-24); Oxygen Saturation ABG 88.7 % (90-95); PCO2 ABG 86 mmHg (35-46); PO2 ABG 61 mmHg (80-95); pH ABG 7.28 (7.35-7.45)
[2022-01-25 06:40] LABS: Allen Test POS (Pos)
[2022-01-25 06:42] LABS: Iron 18 mcg/dl (35-175); Total Iron Binding Cap Calc 205 mcg/dl (250-450); Transferrin (FE) Percent Satur 9 % (20-50); Unsaturated Iron Binding Cap 187 mcg/dl (155-355)
[2022-01-25 06:54] LABS: Eosinophils # (auto) 0.18 K/uL (0-0.5); Eosinophils % (auto) 2.4 %; Hematocrit (blood only) 32.8 % (42-52); Immature Granulocytes # (auto) 0.02 K/uL (0.00-0.02); Immature Granulocytes % (auto) 0.3 %; Lymphocytes # (auto) 0.99 K/uL (1.2-3.4); Lymphocytes % (auto) 13.5 %; Mean Corpuscular Hgb Conc 27.4 g/dL (32-36); Mean Corpuscular Volume 94.8 fL (80-100); Mean Platelet Volume 10.6 fL (7.4-10.4); Monocytes # (auto) 0.48 K/uL (0.11-0.59); Monocytes % (auto) 6.5 %; Neutrophils # (auto) 5.68 K/uL (1.4-6.5); Neutrophils % (auto) 77.3 %; Platelet Count 276 K/uL (130-400); RDW Coefficient of Variation 17.7 % (11.5-14.5); RDW Standard Deviation 61.6 fL (36.4-46.3); Red Blood Count 3.46 M/uL (4.7-6.1); White Blood Count 7.35 K/uL (4.8-10.8)
[2022-01-25] MEDS: ALBUT/IPRATROP 3MG/0.5MG NEB 3 ML VIAL NEB SCH ×4 (07:12→19:10)
[2022-01-25 07:23] LABS: Albumin Globulin Ratio 0.8 (0.9-2); Albumin Level 2.7 gm/dl (3.4-5.0); BUN Creatinine Ratio 24.4 (10-20); Bilirubin,Total 0.2 mg/dl (0.2-1.0); Calcium 8.9 mg/dl (8.5-10.1); Est GFR (African American) 133.8 ml/min; Est GFR (Non-African American) 115.5 ml/min; Globulin 3.6 gm/dl (2.5-4.0); Potassium 3.5 mmol/L (3.5-5.1); Total Protein 6.3 gm/dl (6.0-8.3)
[2022-01-25 07:33] LABS: Folate (Folic Acid) 10.33 ng/ml (>5.38)
[2022-01-25] MEDS: INSULIN ASPART PER UNIT SC SCH ×4 (07:49→18:20)
--- NOTE | 2022-01-25 07:55 | Hospitalist Progress Note ---
Date of Service January 25, 2022 Assessment & Plan (1) Acute on chronic respiratory failure with hypoxia and hypercapnia: Plan: Acute on chronic respiratory failure with hypoxia and hypercapnia/right lower lobe aspiration pneumonia and effusion Continues on BiPAP, was able to be placed on HFNC today while awake but when dozing off/sleeping did desaturate to the 70s and was placed back on BiPAP Had been saturating well yesterday evening with FiO2 up to 65% however ABG worsen on 40FiO2 this morning Continues on Zosyn (vanco d/c, MRSA nasal swab negative) Procal 0.14 (last admission was 0.17) Continue duonebs scheduled and as needed Pulmonary added anoro inhaler as well, increased IPAP 18/EPAP 8, ?if need more EPAP Diamox held per pulmonary and I ordered 20mg IV lasix x 1 on 01/25, repeating again today. Urine clear and Cr stable Theophylline level LOW --> per pulm would not use for pulmonary issues and would not restart CXR --Mild congestive change and small bilateral pleural effusions, unchanged. Hazy appearance to lung bases are not significantly changed. This may represent consolidation or layering pleural effusions. Continues cough assist, flutter valve Palliative on consulted -- family meeting possibly later this week Consulted GI for consideration of PEG tube -- would need to be done surgically given central obesity and inability to place endoscopically. Will consult general surgery for AM pending how he does with speech this afternoon/evening --> Had been pretty much NPO due to choking/aspiration, however discussed with patient and speech. Patient demonstrated understanding of risks with feeding and would like to try with speech supervision. --> Asking for early dinner tray around 3pm and will monitor. Patient agreeable to sit completely upright in bed to attempt (previously declined due to back pain) --> pending eval may need to consider TPN/general surgery consult as mentioned Also discussed with patient possible need for tracheostomy if unable to come off BiPAP (done previously in past) and he is agreeable. Will consult with ENT regarding this Monitor I/O, weights Monitor labs/electrolyte replacement as needed --> Hx anemia, iron stores checked and low --> replacement while inpatient as well Of note, there was a concern for patient having underlying seizure disorder, but no records from [facility], patient denies history of this. Called and left voicemail to confirm with no history of such and on this medicaiton for hx bipolar as mood stabilizing agent. Initially would be concerned if hx seizure given depakote level on checks always subtherapeutic. (2) Aspiration pneumonia of right lower lobe: Plan: See above Speech therapy consulted given continued aspirations/level I to see if any benefit from FEES? Speech to bedside eval and keep posted. --> Has been chronically aspirating and continues to do so with sips of water when BiPAP off --> Speech to see today this afternoon as patient agreeable to risks and agreed to sit upright to see if able to take in oral nutrition. Monitor/consult general surgery if need for surgical placement of PEG tube (3) HLD (hyperlipidemia): Plan: Continue atorvastatin 40 mg at bedtime (4) HTN (hypertension): Plan: Hold antihypertensives due to borderline blood pressure: Metoprolol tartrate, potassium chloride, and Terazosin --> Did resume lasix but given 20mg IV x1 01/24, additional 20mg IV today (5) Diabetes: Plan: Last A1c Aug 2021, 6.8 Utilizing sliding scale insulin while inpatient and holding off on lantus given not taking much PO/hardly any and will monitor -- BSGs have been low 100s over past 24 hours (6) Seizure: Plan: Seizure disorder/anxiety depression/dementia- Continue divalproex, donepezil, Seroquel and sertraline as able -- discuss with nursing regarding need to continue the depakote/seroquel but could hold others for today given desaturations when off the BiPAP Prior valproic acid level last admission low at 30, but had been NPO due to aspiration/intubation --> on 250mg BID outpatient, may need to reach out to neuro for increased dosing? PATIENT LABELED WITH SEIZURE HX, HOWEVER NO RECORDS IN SYSTEM, NOTHING MENTIONED ON HEARTIDE RECORDS, AND PATIENT DENIES ANY HISTORY OF SUCH. DID CALL /LEAVE VOICEMAIL FOR CONFIRMATION BUT GIVEN NO SEIZURE HX, NO NEED FOR INCREASED DOSE DEPAKOTE AT THIS TIME, DISCUSSED WITH NEUROLOGY (7) Anxiety and depression: Plan: See above (8) Dementia: Plan: See above (9) Left knee pain: Plan: Reported discomfort to L knee with movement calves non-tender no erythema/open wound will attempt topical voltaren for now and monitor, can get imaging if needed however did not report any injury --> WILL GET PLAIN FILM TOMORROW WITH CXR, BUT HOLDING OFF FOR NOW NOT BIGGEST ISSUE, BUT DOES HAVE PAIN WITH MOVEMENT Plan: Lovenox for DVT Prophylaxis Speech to eval, possible diet --> if unsuccessful, need to see about general surgery for peg tube placement Patient agreeable to trach if needed if unable to come off Bipap as discussed with pulmonary -- consult for ENT placed Admission and Anticipated Discharge Date Admission Date: January 23, 2022 Subjective Patient evaluated around lunchtime. Had been on BiPAP this morning, issues w/ pills and only given select few. No actual true known history of seizures, and on depakote for mood stabilizer. Will confirm with . Had been placed on HFNC and doing well on such later in the morning but then was dozing back off and dropped to 70s for several minutes and placed back on BiPAP. Discussed if unable to get off of BiPAP if he would be willing to consider tracheostomy. He states he would be willing to consider. GI saw this morning for consideration of PEG, no plans for intervention at this time due to central obesity. Did discuss diet -- patient is stating he is very hungry and wanting to eat. Discussed speech recommendations would require him to be fully upright and can arrange for them to be at bedside to evaluate for early dinner as long as he understands the risks for aspiration and he continues to voice understanding and would like to try and see how it goes. Denies fever, chills, chest pain, shortness of breath, abd pain, nausea or vomiting. RN to place coude catheter due to incontinence issues --> RT assisted with urinal prior to placement and patient continues to put out clear/diluted yellow urine. Review of Systems Review of Systems: All systems reviewed & are unremarkable except as noted in HPI & below Physical Exam Physical Exam: General: WD male, sitting up in bed, on BiPAP, no acute distress but complaints of wanting to eat HEENT: pupils equal/reactive, EOMI, mm slightly dry, prior tracheostomy scar noted Neck: trachea midline without deviation Resp: bilateral crackles, decreased air entry bilaterally R>L, no wheezing, no accessory muscle use, on BiPAP CV: RRR, no m/r/g, trace edema GI: +BS, obese, non-tender, no guarding : no Valerio (clear urine in urinal) Skin: warm, dry MSK: slight tenderness to lateral aspect L knee, no openings/drainage/warmth or erythema Psych: alert, oriented to person/place/event, cooperative and pleasant Results & Data Results & Data ([facility]) Vital Signs (Past 12 Hours) Vital Signs Temp Pulse Pulse Resp BP Pulse Ox 01/25/22 07:23 36.9 C 87 22 118/72 89 L 01/25/22 07:16 72 20 88 L 01/25/22 07:13 74 20 88 L 01/25/22 03:09 36.8 C 82 20 130/78 99 01/25/22 03:05 70 21 97 01/25/22 00:00 64 01/24/22 23:23 36.9 C 66 20 120/74 100 01/24/22 23:06 65 18 100 Laboratory Results 01/25/22 01/25/22 01/25/22 Range/Units 07:27 06:11 06:05 WBC (4.8-10.8) K/uL RBC (4.7-6.1) M/uL Hgb (14.0-18.0) g/dL Hct (42-52) % MCV (80-100) fL MCH (25-34) pg MCHC (32-36) g/dL RDW Std Deviation (36.4-46.3) fL RDW Coeff of Raquel (11.5-14.5) % Plt Count (130-400) K/uL MPV (7.4-10.4) fL Immature Gran % (Auto) % Neut % (Auto) % Lymph % (Auto) % [place] % (Auto) % Eos % (Auto) % Baso % (Auto) % Neut # (Auto) (1.4-6.5) K/uL Lymph # (Auto) (1.2-3.4) K/uL [place] # (Auto) (0.11-0.59) K/uL Eos # (Auto) (0-0.5) K/uL Baso # (Auto) (0-0.2) K/uL Immature Gran # (Auto) (0.00-0.02) K/uL ABG pH 7.28 L (7.35-7.45) ABG pCO2 86 H (35-46) mmHg ABG pO2 61 L (80-95) mmHg ABG HCO3 40 H (19-24) mmol/L ABG O2 Saturation 88.7 L (90-95) % ABG Base Excess 10.5 H (-9-1.8) mEq/L Vernon Test POS (Pos) Barometric Pressure 734.2 mm/Hg Oxygen Given 60% FIO2 Sodium (136-145) mmol/L Potassium (3.5-5.1) mmol/L Chloride (98-107) mmol/L Carbon Dioxide (21-32) mmol/L Anion Gap (3-11) BUN (6-23) mg/dl Creatinine (0.6-1.4) mg/dl Est Cr Clr Drug Dosing ml/min Est GFR ( Amer) ml/min Est GFR (Non-Af Amer) ml/min BUN/Creatinine Ratio (10-20) Glucose (70-99(Fasting)) mg/dl POC Glucose 124 H (70-99) mg/dl Calcium (8.5-10.1) mg/dl Magnesium (1.7-2.4) mg/dl Iron (35-175) mcg/dl TIBC (250-450) mcg/dl Unsaturated IBC (155-355) mcg/dl Transferrin % Sat (20-50) % Total Bilirubin (0.2-1.0) mg/dl AST (13-39) U/L ALT (7-52) U/L Alkaline Phosphatase (34-104) U/L B-Natriuretic Peptide (0-100) pg/ml Total Protein (6.0-8.3) gm/dl Albumin (3.4-5.0) gm/dl Globulin (2.5-4.0) gm/dl Albumin/Globulin Ratio (0.9-2) Vitamin B12 840 (180-914) pg/ml Folate 10.33 (>5.38) ng/ml Nasal Screen MRSA (PCR) (Negative) Theophylline (10.0-20.0) mg/L 01/25/22 01/25/22 01/25/22 Range/Units 06:05 06:05 06:05 WBC 7.35 (4.8-10.8) K/uL RBC 3.46 L (4.7-6.1) M/uL Hgb 9.0 L (14.0-18.0) g/dL Hct 32.8 L (42-52) % MCV 94.8 (80-100) fL MCH 26.0 (25-34) pg MCHC 27.4 L (32-36) g/dL RDW Std Deviation 61.6 H (36.4-46.3) fL RDW Coeff of Raquel 17.7 H (11.5-14.5) % Plt Count 276 (130-400) K/uL MPV 10.6 H (7.4-10.4) fL Immature Gran % (Auto) 0.3 % Neut % (Auto) 77.3 % Lymph % (Auto) 13.5 % [place] % (Auto) 6.5 % Eos % (Auto) 2.4 % Baso % (Auto) 0.0 % Neut # (Auto) 5.68 (1.4-6.5) K/uL Lymph # (Auto) 0.99 L (1.2-3.4) K/uL [place] # (Auto) 0.48 (0.11-0.59) K/uL Eos # (Auto) 0.18 (0-0.5) K/uL Baso # (Auto) 0.00 (0-0.2) K/uL Immature Gran # (Auto) 0.02 (0.00-0.02) K/uL ABG pH (7.35-7.45) ABG pCO2 (35-46) mmHg ABG pO2 (80-95) mmHg ABG HCO3 (19-24) mmol/L ABG O2 Saturation (90-95) % ABG Base Excess (-9-1.8) mEq/L Vernon Test (Pos) Barometric Pressure mm/Hg Oxygen Given Sodium 141 (136-145) mmol/L Potassium 3.5 D (3.5-5.1) mmol/L Chloride 99 (98-107) mmol/L Carbon Dioxide 39 H (21-32) mmol/L Anion Gap 3 (3-11) BUN 11 (6-23) mg/dl Creatinine 0.45 L (0.6-1.4) mg/dl Est Cr Clr Drug Dosing 215.0 ml/min Est GFR ( Amer) 133.8 ml/min Est GFR (Non-Af Amer) 115.5 ml/min BUN/Creatinine Ratio 24.4 H (10-20) Glucose 105 H (70-99(Fasting)) mg/dl POC Glucose (70-99) mg/dl Calcium 8.9 (8.5-10.1) mg/dl Magnesium 2.0 (1.7-2.4) mg/dl Iron 18 L (35-175) mcg/dl TIBC 205 L (250-450) mcg/dl Unsaturated IBC 187 (155-355) mcg/dl Transferrin % Sat 9 L (20-50) % Total Bilirubin 0.2 (0.2-1.0) mg/dl AST 8 L (13-39) U/L ALT 3 L (7-52) U/L Alkaline Phosphatase 41 (34-104) U/L B-Natriuretic Peptide (0-100) pg/ml Total Protein 6.3 (6.0-8.3) gm/dl Albumin 2.7 L (3.4-5.0) gm/dl Globulin 3.6 (2.5-4.0) gm/dl Albumin/Globulin Ratio 0.8 L (0.9-2) Vitamin B12 (180-914) pg/ml Folate (>5.38) ng/ml Nasal Screen MRSA (PCR) (Negative) Theophylline (10.0-20.0) mg/L 01/24/22 01/24/22 01/24/22 Range/Units 20:04 16:33 11:19 WBC (4.8-10.8) K/uL RBC (4.7-6.1) M/uL Hgb (14.0-18.0) g/dL Hct (42-52) % MCV (80-100) fL MCH (25-34) pg MCHC (32-36) g/dL RDW Std Deviation (36.4-46.3) fL RDW Coeff of Raquel (11.5-14.5) % Plt Count (130-400) K/uL MPV (7.4-10.4) fL Immature Gran % (Auto) % Neut % (Auto) % Lymph % (Auto) % [place] % (Auto) % Eos % (Auto) % Baso % (Auto) % Neut # (Auto) (1.4-6.5) K/uL Lymph # (Auto) (1.2-3.4) K/uL [place] # (Auto) (0.11-0.59) K/uL Eos # (Auto) (0-0.5) K/uL Baso # (Auto) (0-0.2) K/uL Immature Gran # (Auto) (0.00-0.02) K/uL ABG pH (7.35-7.45) ABG pCO2 (35-46) mmHg ABG pO2 (80-95) mmHg ABG HCO3 (19-24) mmol/L ABG O2 Saturation (90-95) % ABG Base Excess (-9-1.8) mEq/L Vernon Test (Pos) Barometric Pressure mm/Hg Oxygen Given Sodium (136-145) mmol/L Potassium (3.5-5.1) mmol/L Chloride (98-107) mmol/L Carbon Dioxide (21-32) mmol/L Anion Gap (3-11) BUN (6-23) mg/dl Creatinine (0.6-1.4) mg/dl Est Cr Clr Drug Dosing ml/min Est GFR ( Amer) ml/min Est GFR (Non-Af Amer) ml/min BUN/Creatinine Ratio (10-20) Glucose (70-99(Fasting)) mg/dl POC Glucose 100 H 157 H 128 H (70-99) mg/dl Calcium (8.5-10.1) mg/dl Magnesium (1.7-2.4) mg/dl Iron (35-175) mcg/dl TIBC (250-450) mcg/dl Unsaturated IBC (155-355) mcg/dl Transferrin % Sat (20-50) % Total Bilirubin (0.2-1.0) mg/dl AST (13-39) U/L ALT (7-52) U/L Alkaline Phosphatase (34-104) U/L B-Natriuretic Peptide (0-100) pg/ml Total Protein (6.0-8.3) gm/dl Albumin (3.4-5.0) gm/dl Globulin (2.5-4.0) gm/dl Albumin/Globulin Ratio (0.9-2) Vitamin B12 (180-914) pg/ml Folate (>5.38) ng/ml Nasal Screen MRSA (PCR) (Negative) Theophylline (10.0-20.0) mg/L 01/24/22 01/24/22 01/24/22 Range/Units 08:50 08:22 08:04 WBC (4.8-10.8) K/uL RBC (4.7-6.1) M/uL Hgb (14.0-18.0) g/dL Hct (42-52) % MCV (80-100) fL MCH (25-34) pg MCHC (32-36) g/dL RDW Std Deviation (36.4-46.3) fL RDW Coeff of Raquel (11.5-14.5) % Plt Count (130-400) K/uL MPV (7.4-10.4) fL Immature Gran % (Auto) % Neut % (Auto) % Lymph % (Auto) % [place] % (Auto) % Eos % (Auto) % Baso % (Auto) % Neut # (Auto) (1.4-6.5) K/uL Lymph # (Auto) (1.2-3.4) K/uL [place] # (Auto) (0.11-0.59) K/uL Eos # (Auto) (0-0.5) K/uL Baso # (Auto) (0-0.2) K/uL Immature Gran # (Auto) (0.00-0.02) K/uL ABG pH 7.34 L (7.35-7.45) ABG pCO2 71 H (35-46) mmHg ABG pO2 122 H (80-95) mmHg ABG HCO3 38 H (19-24) mmol/L ABG O2 Saturation 98.2 H (90-95) % ABG Base Excess 9.6 H (-9-1.8) mEq/L Vernon Test Pos (Pos) Barometric Pressure 737.4 mm/Hg Oxygen Given 60% Sodium (136-145) mmol/L Potassium (3.5-5.1) mmol/L Chloride (98-107) mmol/L Carbon Dioxide (21-32) mmol/L Anion Gap (3-11) BUN (6-23) mg/dl Creatinine (0.6-1.4) mg/dl Est Cr Clr Drug Dosing ml/min Est GFR ( Amer) ml/min Est GFR (Non-Af Amer) ml/min BUN/Creatinine Ratio (10-20) Glucose (70-99(Fasting)) mg/dl POC Glucose (70-99) mg/dl Calcium (8.5-10.1) mg/dl Magnesium (1.7-2.4) mg/dl Iron (35-175) mcg/dl TIBC (250-450) mcg/dl Unsaturated IBC (155-355) mcg/dl Transferrin % Sat (20-50) % Total Bilirubin (0.2-1.0) mg/dl AST (13-39) U/L ALT (7-52) U/L Alkaline Phosphatase (34-104) U/L B-Natriuretic Peptide 59 (0-100) pg/ml Total Protein (6.0-8.3) gm/dl Albumin (3.4-5.0) gm/dl Globulin (2.5-4.0) gm/dl Albumin/Globulin Ratio (0.9-2) Vitamin B12 (180-914) pg/ml Folate (>5.38) ng/ml Nasal Screen MRSA (PCR) Negative (Negative) Theophylline (10.0-20.0) mg/L 01/24/22 01/24/22 01/23/22 Range/Units 08:04 08:04 07:14 WBC 7.23 (4.8-10.8) K/uL RBC 3.65 L (4.7-6.1) M/uL Hgb 9.7 L (14.0-18.0) g/dL Hct 35.3 L (42-52) % MCV 96.7 (80-100) fL MCH 26.6 (25-34) pg MCHC 27.5 L (32-36) g/dL RDW Std Deviation 62.5 H (36.4-46.3) fL RDW Coeff of Raquel 17.7 H (11.5-14.5) % Plt Count 267 (130-400) K/uL MPV 10.1 (7.4-10.4) fL Immature Gran % (Auto) 0.1 % Neut % (Auto) 78.7 % Lymph % (Auto) 12.7 % [place] % (Auto) 6.8 % Eos % (Auto) 1.7 % Baso % (Auto) 0.0 % Neut # (Auto) 5.69 (1.4-6.5) K/uL Lymph # (Auto) 0.92 L (1.2-3.4) K/uL [place] # (Auto) 0.49 (0.11-0.59) K/uL Eos # (Auto) 0.12 (0-0.5) K/uL Baso # (Auto) 0.00 (0-0.2) K/uL Immature Gran # (Auto) 0.01 (0.00-0.02) K/uL ABG pH (7.35-7.45) ABG pCO2 (35-46) mmHg ABG pO2 (80-95) mmHg ABG HCO3 (19-24) mmol/L ABG O2 Saturation (90-95) % ABG Base Excess (-9-1.8) mEq/L Vernon Test (Pos) Barometric Pressure mm/Hg Oxygen Given Sodium 144 (136-145) mmol/L Potassium 4.7 (3.5-5.1) mmol/L Chloride 101 (98-107) mmol/L Carbon Dioxide 43 H* (21-32) mmol/L Anion Gap 0 L (3-11) BUN 12 (6-23) mg/dl Creatinine 0.56 L (0.6-1.4) mg/dl Est Cr Clr Drug Dosing 172.9 ml/min Est GFR ( Amer) 122.3 ml/min Est GFR (Non-Af Amer) 105.5 ml/min BUN/Creatinine Ratio 21.4 H (10-20) Glucose 128 H (70-99(Fasting)) mg/dl POC Glucose (70-99) mg/dl Calcium 9.4 (8.5-10.1) mg/dl Magnesium 2.2 (1.7-2.4) mg/dl Iron (35-175) mcg/dl TIBC (250-450) mcg/dl Unsaturated IBC (155-355) mcg/dl Transferrin % Sat (20-50) % Total Bilirubin 0.2 (0.2-1.0) mg/dl AST 7 L (13-39) U/L ALT 3 L (7-52) U/L Alkaline Phosphatase 48 (34-104) U/L B-Natriuretic Peptide (0-100) pg/ml Total Protein 6.8 (6.0-8.3) gm/dl Albumin 2.9 L (3.4-5.0) gm/dl Globulin 3.9 (2.5-4.0) gm/dl Albumin/Globulin Ratio 0.7 L (0.9-2) Vitamin B12 (180-914) pg/ml Folate (>5.38) ng/ml Nasal Screen MRSA (PCR) (Negative) Theophylline 3.7 L (10.0-20.0) mg/L Diagnostic Findings Chest X-Ray 01/25/22 09:09 XR chest 1V portable HISTORY: Worsening arterial blood gas. COMPARISON: Chest 01/24/2022. FINDINGS: No pneumothorax. The heart is mildly enlarged. There are small bilateral pleural effusions, unchanged. There is mild central pulmonary vascular congestion without overt edema. Hazy bibasilar airspace opacities, right greater than left, are again noted. This may represent consolidation or layering pleural effusions. IMPRESSION: 1. Mild congestive change and small bilateral pleural effusions, unchanged. 2. Hazy appearance to lung bases are not significantly changed. This may represent consolidation or layering pleural effusions. ACT 112: Negative or not required by law. Electronically signed by: Davis Ponce M.D. 01/25/2022 9:47 AM PG Care Time/CCT Total # of Minutes Spent Total Time Spent with Patient: Total time spent is greater than 50% in coordination of care (as documented) at patient's floor/unit and/or counseling patient: Coding Level of Care Code 77220 Subseq Hosp Care Lvl 3 Diagnoses Acute on chronic respiratory failure with hypoxia and hypercapnia J96.21; J96.22 Aspiration pneumonia of right lower lobe J69.0 Aspiration pneumonia type: unspecified HLD (hyperlipidemia) E78.5 HTN (hypertension) I10 Diabetes E11.9 Seizure R56.9 Anxiety and depression F41.9; F32.A Dementia F03.90 Left knee pain M25.562 (1) Aspiration pneumonia of right lower lobe Aspiration pneumonia type: unspecified Qualified Code(s): J69.0 - Pneumonitis due to inhalation of food and vomit
[2022-01-25] MEDS ORDERED: IRON SUCROSE 200 MG in 0.9 % SODIUM CHLORIDE 100 ML IV SCH (08:00)
[2022-01-25] MEDS: DICLOFENAC SOD 1% GEL 100 GM TUBE EXT SCH ×3 (08:36→21:29)
[2022-01-25] MEDS: CHOLECALCIFEROL 1,000 UNITS 25 MCG TAB PO SCH (08:46)
[2022-01-25] MEDS: UMECLIDINIUM/VILANTEROL 62.5/25MCG 7 PUFFS/INHALER INH SCH (08:46)
[2022-01-25] MEDS: DONEPEZIL HCL 5 MG TAB PO SCH (08:46)
[2022-01-25] MEDS: SERTRALINE HCL 100 MG TABLET PO SCH (08:46)
[2022-01-25] MEDS: DIVALPROEX DELAY RELEASE 250 MG TABEC PO SCH ×2 (08:52→21:29)
[2022-01-25] MEDS: QUEtiapine FUMARATE 25 MG TABLET PO SCH ×2 (08:52→21:30)
[2022-01-25] MEDS: ASPIRIN 81 MG CHEW PO SCH (08:52)
--- NOTE | 2022-01-25 09:13 | Pulmonology Progress Note ---
Date of Service January 25, 2022 Assessment & Plan (1) Acute on chronic respiratory failure with hypoxia and hypercapnia: (2) Aspiration pneumonia of right lower lobe: Aspiration pneumonia type: unspecified Qualified Code(s): J69.0 - Pneumonitis due to inhalation of food and vomit (3) Atelectasis, right: (4) Obstructive lung disease: (5) AMBERLY (obstructive sleep apnea): (6) Pickwickian syndrome: Plan: CT chest 01/15/2022 personally reviewed: Centrilobular emphysema appreciated bilaterally Patchy opacities appreciated in the right upper lobe Enlarged main pulmonary artery, small bilateral pleural effusion Elevated right hemidiaphragm with dependent atelectasis of the right lower lobe Cardiomegaly Insignificant mediastinal lymphadenopathy Chest x-ray 01/23/2022 personally reviewed: Portable film, fair inspiratory effort, right costophrenic angle is blunted, elevated right hemidiaphragm, mediastinal shift to the right. --Acute on chronic hypoxic hypercapnic respiratory failure Multifactorial AMBERLY/OHS Underlying COPD Keep O2 saturation between 88-92% --Right lower lobe atelectasis Probable aspiration Aspiration precautions Keep the bed elevated 35 degrees Flutter valve with CoughAssist --COPD with emphysema Continue with Anoro Patient is on chronic theophylline 600 mg In a patient who has history of seizure I do not think this is a good medication to be used Who recommended to titrated off by the outpatient fixing machine operator --AMBERLY Continue with BiPAP Plan: Chest x-ray from today does not show any significant change from yesterday. Does seem to have atelectasis of the right lower lobe Continue with CoughAssist Patient is more alert but he still requiring BiPAP support He dozes off very easily and whenever he does that he gets hypoxic I had RT put the patient on high flow today when he is awake and he was able to tolerate a 25 L, 40%. He does desaturate when he goes [id number]. He did fail swallow eval. PEG tube placement could be started for nutrition purposes. He will still have aspiration pneumonia with PEG tube. There has been little bit of progress I would say compared to yesterday as we were able to put him on high flow but if he has continuous requirement of BiPAP which is because of his underlying AMBERLY/OHS trach could be considered Case discussed with Shanell Garrison and RT Please note the above document was generated using voice recognition software. It may contain grammatical, syntax or spelling errors.Any formal questions or concerns about the content, text or information contained within the body of this dictation should be directly addressed to the provider for clarification. Admission and Anticipated Discharge Date Admission Date: January 23, 2022 Subjective Patient seen and examined at bedside. No acute distress. Patient still requires continuous BiPAP. Whenever they try to take him off BiPAP he desaturates At the time of examination he was saturating 95% on 65% while on BiPAP I went down to 55%. He is more alert. Answering questions appropriately. Review of Systems Review of Systems: All systems reviewed & are unremarkable except as noted in Subjective Physical Exam Physical Exam: Constitutional: No acute distress HEENT: EOMI, PERRLA Respiratory system: Decreased air entry bilaterally, more decreased on the right side, no wheeze, rhonchi, positive crackles bilaterally CVS: S1-S2 positive, no murmurs or gallops Abdomen: Soft, nontender, nondistended, positive bowel sounds x4, obese Extremities: +2 pulses bilaterally radialis/ dorsalis pedis, no cyanosis,+1 edema Neuro: Awake alert oriented to self and place Psych: Normal mood and affect G/U: No Valerio Skin: no rashes, warm and dry Lymphatic: no cervical or axillary lymphadenopathy Results & Data Results & Data ([facility]) Vital Signs (Past 12 Hours) Vital Signs Temp Pulse Pulse Resp BP Pulse Ox 01/25/22 07:23 36.9 C 87 22 118/72 89 L 01/25/22 07:16 72 20 88 L 01/25/22 07:13 74 20 88 L 01/25/22 03:09 36.8 C 82 20 130/78 99 01/25/22 03:05 70 21 97 01/25/22 00:00 64 01/24/22 23:23 36.9 C 66 20 120/74 100 01/24/22 23:06 65 18 100 Laboratory Results 01/25/22 06:05 01/25/22 06:05 PG Care Time/CCT Total # of Minutes Spent Total Time Spent with Patient: Total time spent is greater than 50% in coordination of care (as documented) at patient's floor/unit and/or counseling patient: [place] [address] Subseq Hosp Care Lvl 3 Patient Type Established Diagnoses Acute on chronic respiratory failure with hypoxia and hypercapnia J96.21; J96.22 Aspiration pneumonia of right lower lobe J69.0 Aspiration pneumonia type: unspecified Atelectasis, right J98.11 Obstructive lung disease J44.9 AMBERLY (obstructive sleep apnea) G47.33 Pickwickian syndrome E66.2
[2022-01-25] MEDS ORDERED: FUROSEMIDE INJ 20 MG/2 ML VIAL IV ONE (09:45)
--- NOTE | 2022-01-25 09:50 | XRay Report ---
XR chest 1V portable HISTORY: Worsening arterial blood gas. COMPARISON: Chest 01/24/2022. FINDINGS: No pneumothorax. The heart is mildly enlarged. There are small bilateral pleural effusions, unchanged. There is mild central pulmonary vascular congestion without overt edema. Hazy bibasilar a irspace opacities, right greater than left, are again noted. This may represent consolidation or laye ring pleural effusions. IMPRESSION: 1. Mild congestive change and small bilateral pleural effusions, unchanged. 2. Hazy appearance to lung bases are not significantly changed. This may represent consolidation or l ayering pleural effusions. ACT 112: Negative or not required by law. Electronically signed by: Davis Ponce M.D. 01/25/2022 9:47 AM
--- NOTE | 2022-01-25 10:05 | Gastrointestinal Consultation ---
Date of Consultation January 25, 2022 Assessment & Plan (1) Right lower lobe pneumonia: (2) At risk for aspiration: Patient is a 71 yo male with dementia, acute on chronic respiratory failure, and RLL PNA. Hospitalists have asked GI to determine whether patient needs a PEG tube due to aspiration concerns. Patient has not been assessed by TECHNICAL COORDINATOR during this admission, but was assessed 7 days ago while admitted at which time it was advised by TECHNICAL COORDINATOR to promote good oral hygiene and eat his meals upright at 30 degrees to reduce risk of aspiration PNA. I agree with TECHNICAL COORDINATOR that a PEG tube would not eliminate his risk of aspiration as he would still be at high risk of aspiration on secretions and tube feeds. Furthermore, I do not feel that his body habitus would be conducive to PEG placement even if a feeding tube was warranted for reasons other than aspiration. I agree with continuous goals of care discussions with family. Supervising Physician Co-Signing Physician Notes Agree with MERRICK Vergara as above Abd: Soft, NT, ND, +BS, obese Await family decision, however, PEG tube will not help with aspiration. Will need surgically placed PEG tube, as family said he has had a PEG previously and it was surgically placed. History of Present Illness Reason for Consultation: "? need for PEG tube" Attending Physician: Babar Hummel History of Present Illness The patient is a 71-year-old male with a past medical history including acute on chronic respiratory failure, aspiration pneumonia right lower lobe, dementia, CHF, diabetes, hyperlipidemia, hypertension, seizure disorder, and anxiety and depression.He has been hospitalized recently from 01/15-01/20/2022 during which time he was intubated for respiratory failure due to his underlying COPD. He is noted to have a RLL pneumonia. GI has been consulted to determine if patient needs a PEG tube. Patient is currently being given a heart healthy, consistent carb diet it appears. Patient has had chest xrays since admission, but has not been assessed during admission by TECHNICAL COORDINATOR. He was, however, assessed during his previous admission 1 week ago. Please refer to the TECHNICAL COORDINATOR report for detailed findings. No pertinent family history. Allergies Allergy/AdvReac Type Severity Reaction Status Date / Time ketorolac [From Toradol] Allergy Unknown Unknown Verified 01/15/22 12:21 Home Medications Medication Instructions Recorded Confirmed Type Lactobacillus acidophilus 0 mmu cells PO QAM #0 07/31/21 01/15/22 History acetaminophen 325 mg tablet 650 mg PO Q4 PRN MDD 3g 07/31/21 01/15/22 History acetazolamide 500 mg 500 mg PO QAM 07/31/21 01/15/22 History capsule,extended release aspirin 81 mg chewable tablet 81 mg PO QAM 07/31/21 01/15/22 History atorvastatin 40 mg tablet 40 mg PO HS 07/31/21 01/15/22 History cholecalciferol (vitamin D3) 25 25 mcg PO QAM 07/31/21 01/15/22 History mcg (1,000 unit) tablet divalproex 250 mg tablet,delayed 250 mg PO BID 07/31/21 01/15/22 History release donepezil 5 mg tablet (Aricept) 5 mg PO QAM 07/31/21 01/15/22 History guaifenesin 600 mg tablet, 600 mg PO Q12H 07/31/21 01/15/22 History extended release 12 hr insulin glargine 100 unit/mL (3 35 unit SUBCUT HS 07/31/21 01/15/22 History mL) subcutaneous pen (Lantus Solostar U-100 Insulin) insulin regular human 100 unit/mL 1 sliding scale dose SUBCUT ACHS 07/31/21 01/15/22 History injection solution (Humulin R Regular U-100 Insulin) metoprolol tartrate 25 mg tablet 12.5 mg PO BID 07/31/21 01/15/22 History pediatric multivitamin 1 tab PO QAM 07/31/21 01/15/22 History potassium chloride 20 mEq 20 meq PO WM 07/31/21 01/15/22 History tablet,extended release quetiapine 50 mg tablet (Seroquel) 50 mg PO BID 07/31/21 01/15/22 History sertraline 100 mg tablet 100 mg PO QAM 07/31/21 01/15/22 History theophylline 600 mg 600 mg PO QAM 07/31/21 01/15/22 History tablet,extended release 24 hr furosemide 20 mg tablet 20 mg PO QAM #30 tab 08/19/21 01/15/22 Rx ipratropium 0.5 mg-albuterol 3 mg 3 ml INHALATION Q4H 01/15/22 01/15/22 History (2.5 mg base)/3 mL nebulization soln terazosin 2 mg capsule 2 mg PO QAM 01/15/22 01/15/22 History Patient History Medical History (Updated 01/25/22 @ 11:03 by Delia Tineo PA-C) Anxiety CHF (congestive heart failure) Dementia Diabetes HLD (hyperlipidemia) HTN (hypertension) Hydronephrosis of right kidney No pertinent family history Obesity Obstructive lung disease Palliative care encounter Smoker Weakness Surgical History No pertinent past surgical history Social History Smoking Status: Former smoker Second Hand Exposure: No; Hx Alcohol Use: No Hx Substance Use: No Preferred Language: [place]al[place] Communication Ability: Effective Director Labor Standards Required: No Beliefs That Will Affect Care: None marital status: Current Living Situation: Rehab How many Children do You have: 2 Feels Safe at Home: Yes Assistive Devices: Oxygen - Continuous Review of Systems Review of Systems: Unobtainable due to cognitive status Physical Exam Constitutional: well nourished Neck: normal visual inspection Respiratory: no respiratory distress Cardiovascular: Rate/Rhythm: regular rate Gastrointestinal (Abdomen): Central abdominal obesity Musculoskeletal: Head/Neck/Chest: head atraumatic Skin: no jaundice Neurologic: awake Psychiatric: Orientation: alert Results & Data ([facility]) Vital Signs (Past 12 Hours) Vital Signs Temp Pulse Pulse Resp BP Pulse Ox 01/25/22 07:23 36.9 C 87 22 118/72 89 L 01/25/22 07:16 72 20 88 L 01/25/22 07:13 74 20 88 L 01/25/22 03:09 36.8 C 82 20 130/78 99 01/25/22 03:05 70 21 97 01/25/22 00:00 64 01/24/22 23:23 36.9 C 66 20 120/74 100 01/24/22 23:06 65 18 100 PG Care Time/CCT Total # of Minutes Spent Total Time Spent with Patient: Total time spent is greater than 50% in coordination of care (as documented) at patient's floor/unit and/or counseling patient: Coding Level of Care Code 53063 Initial Inpt Care Lvl 3 Diagnoses At risk for aspiration Z91.89 Right lower lobe pneumonia J18.9 Pneumonia type: due to unspecified organism (1) Right lower lobe pneumonia Pneumonia type: due to unspecified organism Qualified Code(s): J18.9 - Pneumonia, unspecified organism
[2022-01-25] MEDS: guaiFENesin 600 MG TABCR PO SCH ×2 (12:23→23:38)
[2022-01-25] MEDS: ENOXAPARIN INJ 40 MG/0.4 ML SYR SQ SCH ×2 (12:29→23:37)
[2022-01-25] MEDS ORDERED: POTASSIUM CHLORIDE CRTAB 20 MEQ TABCR PO STA (16:27)
[2022-01-25] MEDS ORDERED: Nursing to Pharmacy Communication SCH (16:45)
[2022-01-25] MEDS: POTASSIUM CHLORIDE / WTR 10 MEQ/100 ML PLCT IV SCH ×2 (17:30→18:26)
[2022-01-25] MEDS ORDERED: TPN/PPN CONSULT PHARMACY PRN (17:58)
[2022-01-25] MEDS: ATORVASTATIN 40 MG TAB PO SCH (21:29)
[2022-01-26] MEDS: INSULIN ASPART PER UNIT SC SCH ×5 (03:17→20:49)
[2022-01-26] MEDS: PIPERACILLIN/TAZOBACTAM 4.5 GM in DEXTROSE 5% 100 ML IV SCH ×3 (04:27→20:45)
[2022-01-26 06:33] LABS: Eosinophils # (auto) 0.14 K/uL (0-0.5); Eosinophils % (auto) 2.2 %; Hematocrit (blood only) 32.2 % (42-52); Hemoglobin 8.9 g/dL (14.0-18.0); Immature Granulocytes # (auto) 0.02 K/uL (0.00-0.02); Immature Granulocytes % (auto) 0.3 %; Lymphocytes % (auto) 17.4 %; Mean Corpuscular Hemoglobin 25.7 pg (25-34); Mean Corpuscular Hgb Conc 27.6 g/dL (32-36); Mean Corpuscular Volume 93.1 fL (80-100); Mean Platelet Volume 10.7 fL (7.4-10.4); Monocytes # (auto) 0.36 K/uL (0.11-0.59); Monocytes % (auto) 5.7 %; Neutrophils # (auto) 4.72 K/uL (1.4-6.5); Neutrophils % (auto) 74.4 %; Platelet Count 304 K/uL (130-400); RDW Coefficient of Variation 17.7 % (11.5-14.5); RDW Standard Deviation 59.8 fL (36.4-46.3); Red Blood Count 3.46 M/uL (4.7-6.1); White Blood Count 6.34 K/uL (4.8-10.8)
[2022-01-26 06:40] LABS: Base Excess ABG 11.4 mEq/L (-9-1.8); HCO3 ABG 39 mmol/L (19-24); Oxygen Saturation ABG 95.8 % (90-95); PCO2 ABG 68 mmHg (35-46); PO2 ABG 83 mmHg (80-95); pH ABG 7.38 (7.35-7.45)
[2022-01-26 06:41] LABS: Allen Test Pos (Pos)
[2022-01-26 07:02] LABS: Albumin Globulin Ratio 0.8 (0.9-2); Albumin Level 2.8 gm/dl (3.4-5.0); BUN Creatinine Ratio 21.3 (10-20); Bilirubin,Total 0.3 mg/dl (0.2-1.0); Creatinine Clr Calc Pharmacy 205.7 ml/min; Est GFR (African American) 131.5 ml/min; Est GFR (Non-African American) 113.4 ml/min; Globulin 3.6 gm/dl (2.5-4.0); Potassium 3.5 mmol/L (3.5-5.1); Total Protein 6.4 gm/dl (6.0-8.3)
[2022-01-26] MEDS: ALBUT/IPRATROP 3MG/0.5MG NEB 3 ML VIAL NEB SCH ×3 (07:22→15:10)
--- NOTE | 2022-01-26 08:41 | Hospitalist Progress Note ---
Date of Service January 26, 2022 Assessment & Plan (1) Acute on chronic respiratory failure with hypoxia and hypercapnia: Plan: Acute on chronic respiratory failure with hypoxia and hypercapnia/right lower lobe aspiration pneumonia and effusion Improvement AM 01/26 -- had been placed back on BiPAP last evening due to worsening CO2 retention/hypoxia ABG improved this morning and pH wnl, CO2 decreased -->placed on HFNC, tolerating well and sats 88-90%. To utilize BiPAP when sleeping/as needed Continues on Zosyn, vanco d/c'd due to negative MRSA nasal swab Duonebs continued but will change to prn sob/wheezing and continue SCHEDULED ANORO (LAMA/LABA) as ordered by pulmonary but not given yet. Patient with COPD but not on maintenance inhalers at baseline? Pulmonary on consult --appreciate continued assistance/bipap adjustments Continue cough assist, flutter valve Theophylline level low but per pulm, would not restart this medication Diamox held per pulmonary and I ordered 20mg IV lasix x 1 on 01/25 & 01/26, but decreased to 10mg IV today. Cr stable. Urine did remain clear but did have wilkerson placed due to incontinence issues and slightly cloudy, asked RN to obtain UA for eval (seen by urology earlier this year for hydronephrosis) Speech saw patient this morning * --> As long as oral care provided and patient able to be fully upright he was fine with oatmeal, banana, and toast this morning, had chicken for lunch. Can continue diet with aspiration precautions/oral care as tolerated * Will hold off on consideration for PEG tube at this time (would need done surgically as done previously due to central obesity per GI), but will continue conversations regarding need for tracheostomy and Mr Harvey primary goals are to #1 eat, #2 breath and given cycle as well documented/outlined by speech therapy, this would likely assist with prevention of continuing cycle * --> In discussion with speech and patient/quality of life, decreasing asp risk would provide opp to introduce trach for patient.would allow him to perform improved oral hygeine and reduction in bacterial aspiration as well as most importantly for Mr Harvey as stated daily regardless of alertness that he wants to be able to eat. Would be ideal to avoid needing to replace surgical PEG tube (gen surgery consult cancelled for now) given continuation of aspiration risk with peg tube. * Holding off on TPN at this time as well given this Palliative to further discussed again today as well as pulmonary medicine. I did discuss with patient and last evening, both agreeable. Patient again agreeable this morning and continues to want to be full code Iron replacement for anemia/low iron --> cont while inpatient Also note, patient from [facility] and does have positive history for COVID-19. As checked with [facility], Mr Harvey tested POSITIVE back in September 2021, was negative on repeat in between being POSITIVE again 11/07/2021. They did not require hospitalization and patient was given prednisone, vitamin D, zinc, Vitamin C. When he was positive the second time in November, they did give the patient a dose of SOTROVIMAD IV X1 --> Messaged Dr Montelongo, given patient with resp failure and no prior mention of COVID 19 in this patient * Patient also on 2-5L O2 chronically at [facility] --> would need to ensure they are monitoring/not keeping O2 too high causing retention/worsening hypercapnia as this is very likely occurring as well as patient non-compliance with BiPAP at times. Again, high benefit possible with placement of trach (2) Aspiration pneumonia of right lower lobe: Plan: chronic needs to be upright for meals, oral hygiene diet as tolerated -- tolerating well today as long as measures in place, would benefit from trach as outlined Per Speech: Patient MUST be fully upright in bed, fully awake/alert, oral hygiene completed prior to meal, direct supervision with oral intake. (3) HLD (hyperlipidemia): Plan: atorvastatin 40 mg at bedtime as able to take (4) HTN (hypertension): Plan: Hold antihypertensives due to borderline blood pressure: Metoprolol tartrate, potassium chloride, and Terazosin --> Did resume lasix but given 20mg IV x1 01/24 continued daily, decreased to 10mg IV today and will hold furhter dosing for now Now that taking PO better and BPs improved will resume his metoprolol given hx HF as well BP currently 120/76 and will monitor (5) Diabetes: Plan: Last A1c Aug 2021, 6.8 Sliding scale, BSGs accepatble and will monitor Add lantus if needed however BSGs well controlled but could add if needed as tolerating diet (6) Seizure: Plan: Seizure disorder/anxiety depression/dementia- Continue divalproex, donepezil, Seroquel and sertraline as able Prior valproic acid level last admission low at 30, but had been NPO due to aspiration/intubation --> on 250mg BID outpatient however this is for MOOD Of note, there was a concern for patient having underlying seizure disorder, but no records from [facility], patient denies history of this. confirmed such, no history of such No need for increased depakote given no hx seizure given sub levels (7) Anxiety and depression: Plan: See above (8) Dementia: Plan: See above (9) Left knee pain: Plan: Reported discomfort to L knee with movement calves non-tender no erythema/open wound will attempt topical voltaren for now and monitor, can get imaging if needed however did not report any injury improvement in pain reported with voltaren gel and will continue this Xray knee obtained -- mod/severe OA, most prom patellofemoral compartment (10) History of COVID-19: Plan: In September and November of this year as outlined. Treatment under #1 at [facility] and did not require hospitalization (11) Weakness: Plan: 2nd to above PT/OT consulted Plan: Lovenox for DVT Prophylaxis Pulm to further discuss trach w/ patient. ENT consultation placed but have not heard back from Dr Gibson. May need to reach out in AM for definitive plan moving forward regarding timing -- he would be excellent candidate for speaking valve after tracheostomy Admission and Anticipated Discharge Date Admission Date: January 23, 2022 Subjective Patient evaluated this morning. Doing much better as far as mentation. Seen by speech today and able to tolerate diet. Remains on HFNC for now, saturations 88-90% and will continue as such. No fever, chills, chest pain, shortness of breath reported. COntinued L knee pain, denies trauma. Had been ambulatory prior to most recent admission. No issues with low back where prior abscess was, and states this is healed up. Questions/concerns addressed at this time. Review of Systems Review of Systems: All systems reviewed & are unremarkable except as noted in HPI & below Physical Exam Physical Exam: General: WD male, sitting up in bed, on HFNC, no acute distress, much more awake/alert BiPAP, no acute distress but complaints of wanting to eat HEENT: pupils equal/reactive, EOMI, mm slightly dry, prior trach scar noted, trachea midline without deviation, sore to bridge of note from BiPAP use noted Resp: bilateral crackles, decreased air entry bilaterally R>L but improved, no wheezing, no accessory muscle use, on HFNC with 35L/min sats 89-90% CV: RRR, no m/r/g, trace edema GI: +BS, obese, non-tender, no guarding : no Wilkerson (clear urine in urinal) Skin: warm, dry MSK: slight tenderness to lateral aspect L knee, no openings/drainage/warmth or erythema, crepitus with ROM, no effusion/hematoma Psych: alert, oriented to person/place/event, cooperative and pleasant -- states January in the hospital Results & Data Results & Data ([facility]) Vital Signs (Past 12 Hours) Vital Signs Temp Pulse Pulse Pulse Resp BP Pulse Ox 01/26/22 08:11 36.7 C 71 21 117/72 90 01/26/22 07:24 74 17 95 01/26/22 07:22 74 16 98 01/26/22 03:32 67 16 98 01/26/22 02:55 37.2 C 78 18 135/81 96 01/25/22 23:43 74 01/25/22 23:13 37.6 C H 74 20 111/67 97 01/25/22 22:25 76 17 96 Laboratory Results 01/26/22 01/26/22 01/26/22 Range/Units 06:18 06:11 06:03 WBC (4.8-10.8) K/uL RBC (4.7-6.1) M/uL Hgb (14.0-18.0) g/dL Hct (42-52) % MCV (80-100) fL MCH (25-34) pg MCHC (32-36) g/dL RDW Std Deviation (36.4-46.3) fL RDW Coeff of Raquel (11.5-14.5) % Plt Count (130-400) K/uL MPV (7.4-10.4) fL Immature Gran % (Auto) % Neut % (Auto) % Lymph % (Auto) % [place] % (Auto) % Eos % (Auto) % Baso % (Auto) % Neut # (Auto) (1.4-6.5) K/uL Lymph # (Auto) (1.2-3.4) K/uL [place] # (Auto) (0.11-0.59) K/uL Eos # (Auto) (0-0.5) K/uL Baso # (Auto) (0-0.2) K/uL Immature Gran # (Auto) (0.00-0.02) K/uL ABG pH 7.38 (7.35-7.45) ABG pCO2 68 H (35-46) mmHg ABG pO2 83 (80-95) mmHg ABG HCO3 39 H (19-24) mmol/L ABG O2 Saturation 95.8 H (90-95) % ABG Base Excess 11.4 H (-9-1.8) mEq/L Vernon Test Pos (Pos) Barometric Pressure 728.5 mm/Hg Oxygen Given 40% Sodium (136-145) mmol/L Potassium (3.5-5.1) mmol/L Chloride (98-107) mmol/L Carbon Dioxide (21-32) mmol/L Anion Gap (3-11) BUN (6-23) mg/dl Creatinine (0.6-1.4) mg/dl Est Cr Clr Drug Dosing ml/min Est GFR ( Amer) ml/min Est GFR (Non-Af Amer) ml/min BUN/Creatinine Ratio (10-20) Glucose (70-99(Fasting)) mg/dl POC Glucose 95 (70-99) mg/dl Calcium (8.5-10.1) mg/dl Phosphorus Pending Magnesium (1.7-2.4) mg/dl Total Bilirubin (0.2-1.0) mg/dl AST (13-39) U/L ALT (7-52) U/L Alkaline Phosphatase (34-104) U/L Total Protein (6.0-8.3) gm/dl Albumin (3.4-5.0) gm/dl Globulin (2.5-4.0) gm/dl Albumin/Globulin Ratio (0.9-2) 01/26/22 01/26/22 01/26/22 Range/Units 06:03 06:03 00:08 WBC 6.34 (4.8-10.8) K/uL RBC 3.46 L (4.7-6.1) M/uL Hgb 8.9 L (14.0-18.0) g/dL Hct 32.2 L (42-52) % MCV 93.1 (80-100) fL MCH 25.7 (25-34) pg MCHC 27.6 L (32-36) g/dL RDW Std Deviation 59.8 H (36.4-46.3) fL RDW Coeff of Raquel 17.7 H (11.5-14.5) % Plt Count 304 (130-400) K/uL MPV 10.7 H (7.4-10.4) fL Immature Gran % (Auto) 0.3 % Neut % (Auto) 74.4 % Lymph % (Auto) 17.4 % [place] % (Auto) 5.7 % Eos % (Auto) 2.2 % Baso % (Auto) 0.0 % Neut # (Auto) 4.72 (1.4-6.5) K/uL Lymph # (Auto) 1.10 L (1.2-3.4) K/uL [place] # (Auto) 0.36 (0.11-0.59) K/uL Eos # (Auto) 0.14 (0-0.5) K/uL Baso # (Auto) 0.00 (0-0.2) K/uL Immature Gran # (Auto) 0.02 (0.00-0.02) K/uL ABG pH (7.35-7.45) ABG pCO2 (35-46) mmHg ABG pO2 (80-95) mmHg ABG HCO3 (19-24) mmol/L ABG O2 Saturation (90-95) % ABG Base Excess (-9-1.8) mEq/L Vernon Test (Pos) Barometric Pressure mm/Hg Oxygen Given Sodium 142 (136-145) mmol/L Potassium 3.5 (3.5-5.1) mmol/L Chloride 97 L (98-107) mmol/L Carbon Dioxide 40 H (21-32) mmol/L Anion Gap 5 (3-11) BUN 10 (6-23) mg/dl Creatinine 0.47 L (0.6-1.4) mg/dl Est Cr Clr Drug Dosing 205.7 ml/min Est GFR ( Amer) 131.5 ml/min Est GFR (Non-Af Amer) 113.4 ml/min BUN/Creatinine Ratio 21.3 H (10-20) Glucose 94 (70-99(Fasting)) mg/dl POC Glucose 79 (70-99) mg/dl Calcium 9.0 (8.5-10.1) mg/dl Phosphorus Magnesium 2.0 (1.7-2.4) mg/dl Total Bilirubin 0.3 (0.2-1.0) mg/dl AST 9 L (13-39) U/L ALT 4 L (7-52) U/L Alkaline Phosphatase 40 (34-104) U/L Total Protein 6.4 (6.0-8.3) gm/dl Albumin 2.8 L (3.4-5.0) gm/dl Globulin 3.6 (2.5-4.0) gm/dl Albumin/Globulin Ratio 0.8 L (0.9-2) 01/25/22 01/25/22 Range/Units 18:12 11:21 WBC (4.8-10.8) K/uL RBC (4.7-6.1) M/uL Hgb (14.0-18.0) g/dL Hct (42-52) % MCV (80-100) fL MCH (25-34) pg MCHC (32-36) g/dL RDW Std Deviation (36.4-46.3) fL RDW Coeff of Raquel (11.5-14.5) % Plt Count (130-400) K/uL MPV (7.4-10.4) fL Immature Gran % (Auto) % Neut % (Auto) % Lymph % (Auto) % [place] % (Auto) % Eos % (Auto) % Baso % (Auto) % Neut # (Auto) (1.4-6.5) K/uL Lymph # (Auto) (1.2-3.4) K/uL [place] # (Auto) (0.11-0.59) K/uL Eos # (Auto) (0-0.5) K/uL Baso # (Auto) (0-0.2) K/uL Immature Gran # (Auto) (0.00-0.02) K/uL ABG pH (7.35-7.45) ABG pCO2 (35-46) mmHg ABG pO2 (80-95) mmHg ABG HCO3 (19-24) mmol/L ABG O2 Saturation (90-95) % ABG Base Excess (-9-1.8) mEq/L Vernon Test (Pos) Barometric Pressure mm/Hg Oxygen Given Sodium (136-145) mmol/L Potassium (3.5-5.1) mmol/L Chloride (98-107) mmol/L Carbon Dioxide (21-32) mmol/L Anion Gap (3-11) BUN (6-23) mg/dl Creatinine (0.6-1.4) mg/dl Est Cr Clr Drug Dosing ml/min Est GFR ( Amer) ml/min Est GFR (Non-Af Amer) ml/min BUN/Creatinine Ratio (10-20) Glucose (70-99(Fasting)) mg/dl POC Glucose 84 104 H (70-99) mg/dl Calcium (8.5-10.1) mg/dl Phosphorus Magnesium (1.7-2.4) mg/dl Total Bilirubin (0.2-1.0) mg/dl AST (13-39) U/L ALT (7-52) U/L Alkaline Phosphatase (34-104) U/L Total Protein (6.0-8.3) gm/dl Albumin (3.4-5.0) gm/dl Globulin (2.5-4.0) gm/dl Albumin/Globulin Ratio (0.9-2) Diagnostic Findings Knee X-Ray 01/26/22 10:21 XR knee LT 3V CLINICAL HISTORY: L lateral knee pain, ?trauma COMPARISON: None FINDINGS: Alignment of the left knee is anatomic. No acute fracture is identified. There is no evidence for a joint effusion. Osteopenia is suspected. This is most pronounced at the tibial tubercle. Moderate to severe patellofemoral compartment osteoarthritis is noted. There is moderate medial and mild lateral compartment osteoarthritis. IMPRESSION: 1. No acute fracture or joint effusion of the left knee. 2. Moderate to severe left knee osteoarthritis, most pronounced within the patellofemoral compartment. ACT 112: Negative or not required by law. Electronically signed by: Donell Garrison M.D. 01/26/2022 11:19 AM PG Care Time/CCT Total # of Minutes Spent Total Time Spent with Patient: Total time spent is greater than 50% in coordination of care (as documented) at patient's floor/unit and/or counseling patient: Coding Level of Care Code 03043 Subseq Hosp Care Lvl 3 Diagnoses Acute on chronic respiratory failure with hypoxia and hypercapnia J96.21; J96 .22 Aspiration pneumonia of right lower lobe J69.0 Aspiration pneumonia type: unspecified HLD (hyperlipidemia) E78.5 HTN (hypertension) I10 Diabetes E11.9 Seizure R56.9 Anxiety and depression F41.9; F32.A Dementia F03.90 Left knee pain M25.562 History of COVID-19 Z86.16 Weakness R53.1 (1) Aspiration pneumonia of right lower lobe Aspiration pneumonia type: unspecified Qualified Code(s): J69.0 - Pneumonitis due to inhalation of food and vomit
[2022-01-26] MEDS ORDERED: FUROSEMIDE INJ 20 MG/2 ML VIAL IV SCH ×2 (09:00)
[2022-01-26] MEDS ORDERED: IRON SUCROSE 200 MG in 0.9 % SODIUM CHLORIDE 100 ML IV ONE (09:00)
[2022-01-26] MEDS: SERTRALINE HCL 100 MG TABLET PO SCH (09:51)
[2022-01-26] MEDS: UMECLIDINIUM/VILANTEROL 62.5/25MCG 7 PUFFS/INHALER INH SCH (09:51)
[2022-01-26] MEDS: CHOLECALCIFEROL 1,000 UNITS 25 MCG TAB PO SCH (09:51)
[2022-01-26] MEDS: DONEPEZIL HCL 5 MG TAB PO SCH (09:51)
[2022-01-26] MEDS: ENOXAPARIN INJ 40 MG/0.4 ML SYR SQ SCH ×2 (09:56→23:19)
[2022-01-26] MEDS: QUEtiapine FUMARATE 25 MG TABLET PO SCH ×2 (09:56→20:46)
[2022-01-26] MEDS: guaiFENesin 600 MG TABCR PO SCH ×2 (09:58→23:20)
[2022-01-26] MEDS: DICLOFENAC SOD 1% GEL 100 GM TUBE EXT SCH ×3 (09:58→20:47)
[2022-01-26] MEDS: DIVALPROEX DELAY RELEASE 250 MG TABEC PO SCH ×2 (09:58→20:49)
[2022-01-26] MEDS: ASPIRIN 81 MG CHEW PO SCH (10:00)
--- NOTE | 2022-01-26 11:00 | Palliative Care Progress Note ---
Date of Service January 26, 2022 Assessment & Plan (1) Palliative care encounter: Plan: I met with Dale in his room. He appeared significantly better than a few days ago with improved color and mentation. He is now off the Bipap and on HFNC, 25L 35%. He was able to have a meaningful conversation with me. As outlined below, we do recognize that his diagnosis is likely to have a cylic presentation of in and out of the hospital with CO2 retention; Bipap use and intubation; of course, with each time leading to further decompensation and fragility with shorter periods of time in between exacerbations. In discussion with DATA DESIGNER, all agree that with this individual and working towards promoting quality of life and decreasing aspiration risk would including the opportunity of possibly introducing a tracheostomy for him. This would allow him to perform improved oral hygeine, leading to reduced bacteria aspiration. Additionally, he would be able to eat through his mouth, and avoid having a artificial tube placed for enteral nutrition and of course, the continuation of aspiration risk with a PEG tube. In talking with Dale, he is receptive to having further discussion regarding a trach with Pulmonary to determine his candidacy. I was able to call his , Sasha at [phone] and talked on the phone regarding above. She does recognize the benefits of a long-term trach and would like to have further discussion. He has had a tracheostomy before and appears to be well informed with what to expect. I communicated the above with the hospitalist, DATA DESIGNER, and Dr. Montelongo. Patient to remain a full code. At this time, unless the patient would decompensate and have a change in their plan of care, palliative will follow peripherally while he continues to seek aggressive treatment with his care. (2) Hypercapnic respiratory failure: (3) Weakness: (4) Anxiety: Admission and Anticipated Discharge Date Admission Date: January 23, 2022 Subjective Pt appears improved from a few days ago. He had improved skin tone, was more oriented and able to have a meaningful conversation. He was able to tolerate a banana, and oatmeal this AM. Currently on HFNC 35%. See A/P for further conversation. Review of Systems Review of Systems: Blount System Assessment Scale: Pain: 1/3 SOB: 1/3 Tiredness: 1/3 Anxiety: 1/3 Palliative Performance Scale: 50% Physical Exam Constitutional: + frail appearing, + disheveled and cooperative ENMT: Mouth: + muffled voice (Bipap) and + dry oral mucous membranes Respiratory: + uses accessory muscles, + cough and able to speak in complete sentences Auscultation: + diminished lung sounds and + wheezes Cardiovascular: Rate/Rhythm: regular rate and regular rhythm Extremities: normal capillary refill; no edema Gastrointestinal (Abdomen): Inspection/Auscultation: normal bowel sounds and + significant pannus Percussion/Palpation: abdomen soft Skin: + ecchymosis Psychiatric: Orientation: alert, oriented x 3 and cooperative Insight: + limited insight Judgement: + limited judgement Results & Data ([facility]) Vital Signs (Past 12 Hours) Vital Signs Temp Pulse Pulse Pulse Resp BP Pulse Ox 01/26/22 10:57 85 18 91 01/26/22 08:11 36.7 C 71 21 117/72 90 01/26/22 07:24 74 17 95 01/26/22 07:22 74 16 98 01/26/22 03:32 67 16 98 01/26/22 02:55 37.2 C 78 18 135/81 96 01/25/22 23:43 74 01/25/22 23:13 37.6 C H 74 20 111/67 97 PG Care Time/CCT Total # of Minutes Spent Total Time Spent with Patient: Total time spent is greater than 50% in coordination of care (as documented) at patient's floor/unit and/or counseling patient: 45 minutes Coding Level of Care Code 50990 Subseq Hosp Care Lvl 3 Diagnoses Palliative care encounter Z51.5 Hypercapnic respiratory failure J96.92 Weakness R53.1 Anxiety F41.9 Time Spent (min) 45
--- NOTE | 2022-01-26 11:21 | XRay Report ---
XR knee LT 3V CLINICAL HISTORY: L lateral knee pain, ?trauma COMPARISON: None FINDINGS: Alignment of the left knee is anatomic. No acute fracture is identified. There is no evide nce for a joint effusion. Osteopenia is suspected. This is most pronounced at the tibial tubercle. Mo derate to severe patellofemoral compartment osteoarthritis is noted. There is moderate medial and mil d lateral compartment osteoarthritis. IMPRESSION: 1. No acute fracture or joint effusion of the left knee. 2. Moderate to severe left knee osteoarthritis, most pronounced within the patellofemoral compartment . ACT 112: Negative or not required by law. Electronically signed by: Donell Garrison M.D. 01/26/2022 11:19 AM
[2022-01-26] MEDS ORDERED: Nursing to Pharmacy Communication SCH (12:00)
[2022-01-26 15:23] LABS: Appearance Urine Turbid (Clear); Bacteria Urine Automated Negative (Negative); Bilirubin Urine Negative (Negative); Blood Urine 2+ (Negative); Color Urine Yellow; Epithelial Cell Urine Auto >30 /lpf (0-5); Glucose Urine UA Negative (Negative); Ketones Urine Trace (Negative); Leukocyte Esterase Urine 3+ (Negative); Nitrite Urine Negative (Negative); Specific Gravity Urine 1.021 (1.000-1.030); Urobilinogen Urine Negative (Negative); WBC Urine Automated >30 /hpf (0-5)
[2022-01-26 15:25] LABS: Protein Urine 1+ (Negative)
[2022-01-26] MEDS ORDERED: ALBUT/IPRATROP 3MG/0.5MG NEB 3 ML VIAL NEB PRN (16:34)
[2022-01-26] MEDS ORDERED: POTASSIUM CHLORIDE / WTR 10 MEQ/100 ML PLCT IV ONE (17:15)
--- NOTE | 2022-01-26 17:16 | Pulmonology Progress Note ---
Date of Service January 26, 2022 Assessment & Plan (1) Acute on chronic respiratory failure with hypoxia and hypercapnia: (2) Aspiration pneumonia of right lower lobe: Aspiration pneumonia type: unspecified Qualified Code(s): J69.0 - Pneumonitis due to inhalation of food and vomit (3) Atelectasis, right: (4) Obstructive lung disease: (5) AMBERLY (obstructive sleep apnea): (6) Pickwickian syndrome: Plan: CT chest 01/15/2022 personally reviewed: Centrilobular emphysema appreciated bilaterally Patchy opacities appreciated in the right upper lobe Enlarged main pulmonary artery, small bilateral pleural effusion Elevated right hemidiaphragm with dependent atelectasis of the right lower lobe Cardiomegaly Insignificant mediastinal lymphadenopathy Chest x-ray 01/23/2022 personally reviewed: Portable film, fair inspiratory effort, right costophrenic angle is blunted, elevated right hemidiaphragm, mediastinal shift to the right. --Acute on chronic hypoxic hypercapnic respiratory failure Multifactorial AMBERLY/OHS Underlying COPD Keep O2 saturation between 88-92% --Right lower lobe atelectasis Probable aspiration Aspiration precautions Keep the bed elevated 35 degrees Flutter valve with CoughAssist --COPD with emphysema Continue with Anoro Patient is on chronic theophylline 600 mg In a patient who has history of seizure I do not think this is a good medication to be used Who recommended to titrated off by the outpatient fish icer --AMBERLY Continue with BiPAP Plan: Patient clinically today looks much better compared to last couple of days He has been able to use CoughAssist and flutter valve. Continue with the same regimen. Given the improvement I think we can hold back on the thoughts of trach. But if the patient in future needs dependence on BiPAP more frequently than trach and PEG could be considered Case discussed with Shanell Garrison and RT Please note the above document was generated using voice recognition software. It may contain grammatical, syntax or spelling errors.Any formal questions or concerns about the content, text or information contained within the body of this dictation should be directly addressed to the provider for clarification. Admission and Anticipated Discharge Date Admission Date: January 23, 2022 Subjective Patient seen and examined at bedside. No acute distress, no dressings overnight. Patient was on high flow 25 L, 35% saturating 91-92% He says that he is feeling better He used BiPAP all night Has been using CoughAssist as as well as flutter valve He is able to bring up phlegm No chest pain, no headache, no nausea, no vomiting Review of Systems Review of Systems: All systems reviewed & are unremarkable except as noted in Subjective Physical Exam Physical Exam: Constitutional: No acute distress HEENT: EOMI, PERRLA Respiratory system: Decreased air entry bilaterally, more decreased on the right side, no wheeze, rhonchi, positive crackles bilaterally CVS: S1-S2 positive, no murmurs or gallops Abdomen: Soft, nontender, nondistended, positive bowel sounds x4, obese Extremities: +2 pulses bilaterally radialis/ dorsalis pedis, no cyanosis,+1 edema Neuro: Awake alert oriented to self and place Psych: Normal mood and affect G/U: No Valerio Skin: no rashes, warm and dry Lymphatic: no cervical or axillary lymphadenopathy Results & Data Results & Data ([facility]) Vital Signs (Past 12 Hours) Vital Signs Temp Pulse Resp BP Pulse Ox 01/26/22 15:39 36.7 C 78 19 120/76 95 01/26/22 15:11 80 17 94 01/26/22 11:51 36.7 C 96 H 18 117/75 95 01/26/22 10:57 85 18 91 01/26/22 08:11 36.7 C 71 21 117/72 90 01/26/22 07:24 74 17 95 01/26/22 07:22 74 16 98 Laboratory Results 01/26/22 06:03 01/26/22 06:03 PG Care Time/CCT Total # of Minutes Spent Total Time Spent with Patient: Total time spent is greater than 50% in coordination of care (as documented) at patient's floor/unit and/or counseling patient: Coding Level of Care Code 43168 Subseq Hosp Care Lvl 2 Diagnoses Acute on chronic respiratory failure with hypoxia and hypercapnia J96.21; J96.22 Aspiration pneumonia of right lower lobe J69.0 Aspiration pneumonia type: unspecified Atelectasis, right J98.11 Obstructive lung disease J44.9 AMBERLY (obstructive sleep apnea) G47.33 Pickwickian syndrome E66.2
[2022-01-26] MEDS: ATORVASTATIN 40 MG TAB PO SCH (20:46)
[2022-01-26] MEDS: METOPROLOL TARTRATE 25 MG TAB PO SCH (20:47)
[2022-01-27] MEDS: PIPERACILLIN/TAZOBACTAM 4.5 GM in DEXTROSE 5% 100 ML IV SCH ×3 (05:26→20:56)
[2022-01-27] MEDS: INSULIN ASPART PER UNIT SC SCH ×4 (07:30→21:32)
[2022-01-27 07:50] LABS: Eosinophils # (auto) 0.18 K/uL (0-0.5); Eosinophils % (auto) 2.8 %; Hematocrit (blood only) 31.6 % (42-52); Hemoglobin 9.1 g/dL (14.0-18.0); Immature Granulocytes # (auto) 0.03 K/uL (0.00-0.02); Immature Granulocytes % (auto) 0.5 %; Lymphocytes # (auto) 1.27 K/uL (1.2-3.4); Lymphocytes % (auto) 19.7 %; Mean Corpuscular Hemoglobin 26.5 pg (25-34); Mean Corpuscular Hgb Conc 28.8 g/dL (32-36); Mean Corpuscular Volume 91.9 fL (80-100); Mean Platelet Volume 10.3 fL (7.4-10.4); Monocytes # (auto) 0.51 K/uL (0.11-0.59); Monocytes % (auto) 7.9 %; Neutrophils # (auto) 4.45 K/uL (1.4-6.5); Neutrophils % (auto) 69.1 %; Platelet Count 272 K/uL (130-400); RDW Coefficient of Variation 17.8 % (11.5-14.5); RDW Standard Deviation 60.3 fL (36.4-46.3); Red Blood Count 3.44 M/uL (4.7-6.1); White Blood Count 6.44 K/uL (4.8-10.8)
[2022-01-27 07:57] LABS: BUN Creatinine Ratio 20.3 (10-20); C Reactive Protein 2.24 mg/dl (0-0.5); Calcium 8.8 mg/dl (8.5-10.1); Creatinine Clr Calc Pharmacy 150.7 ml/min; Est GFR (African American) 115.8 ml/min; Est GFR (Non-African American) 99.9 ml/min; Magnesium 1.9 mg/dl (1.7-2.4); Phosphorus 3.3 mg/dl (2.5-4.9); Potassium 3.5 mmol/L (3.5-5.1)
[2022-01-27] MEDS: SERTRALINE HCL 100 MG TABLET PO SCH (08:02)
[2022-01-27] MEDS: CHOLECALCIFEROL 1,000 UNITS 25 MCG TAB PO SCH (08:02)
[2022-01-27] MEDS: METOPROLOL TARTRATE 25 MG TAB PO SCH ×2 (08:03→21:20)
[2022-01-27] MEDS: DONEPEZIL HCL 5 MG TAB PO SCH (08:06)
[2022-01-27] MEDS: DICLOFENAC SOD 1% GEL 100 GM TUBE EXT SCH ×3 (08:06→22:06)
[2022-01-27] MEDS: UMECLIDINIUM/VILANTEROL 62.5/25MCG 7 PUFFS/INHALER INH SCH (08:10)
[2022-01-27] MEDS: QUEtiapine FUMARATE 25 MG TABLET PO SCH ×2 (08:23→22:33)
[2022-01-27] MEDS: DIVALPROEX DELAY RELEASE 250 MG TABEC PO SCH ×2 (08:23→21:22)
[2022-01-27] MEDS: ASPIRIN 81 MG CHEW PO SCH (08:24)
[2022-01-27] MEDS: guaiFENesin 600 MG TABCR PO SCH ×2 (11:33→22:05)
[2022-01-27] MEDS: ENOXAPARIN INJ 40 MG/0.4 ML SYR SQ SCH ×2 (11:34→22:05)
--- NOTE | 2022-01-27 12:23 | Pulmonology Progress Note ---
Date of Service January 27, 2022 Assessment & Plan (1) Acute on chronic respiratory failure with hypoxia and hypercapnia: (2) Aspiration pneumonia of right lower lobe: Aspiration pneumonia type: unspecified Qualified Code(s): J69.0 - Pneumonitis due to inhalation of food and vomit (3) Atelectasis, right: (4) Obstructive lung disease: (5) AMBERLY (obstructive sleep apnea): (6) Pickwickian syndrome: Plan: CT chest 01/15/2022 personally reviewed: Centrilobular emphysema appreciated bilaterally Patchy opacities appreciated in the right upper lobe Enlarged main pulmonary artery, small bilateral pleural effusion Elevated right hemidiaphragm with dependent atelectasis of the right lower lobe Cardiomegaly Insignificant mediastinal lymphadenopathy Chest x-ray 01/23/2022 personally reviewed: Portable film, fair inspiratory effort, right costophrenic angle is blunted, elevated right hemidiaphragm, mediastinal shift to the right. --Acute on chronic hypoxic hypercapnic respiratory failure Multifactorial AMBERLY/OHS Underlying COPD Keep O2 saturation between 88-92% --Right lower lobe atelectasis Probable aspiration Aspiration precautions Keep the bed elevated 35 degrees Flutter valve with CoughAssist --COPD with emphysema Continue with Anoro Patient is on chronic theophylline 600 mg In a patient who has history of seizure I do not think this is a good medication to be used Who recommended to titrated off by the outpatient luggage attendant --AMBERLY Continue with BiPAP Plan: Patient has made progress since last couple of days Continue with oxygen supplementation to keep oxygen saturation 88-92% Do not over oxygenate the patient BiPAP whenever the patient is asleep/taking a nap Complete total 7 days of antibiotics and then stop For the somnolence that the patient has during the day might need medication changes for the antipsychotic that he has been taking if possible Neurology input can be entertained. No further recommendation from pulmonary perspective. Will sign off Please call directly with any questions Please note the above document was generated using voice recognition software. It may contain grammatical, syntax or spelling errors.Any formal questions or co ncerns about the content, text or information contained within the body of this dictation should be directly addressed to the provider for clarification. Admission and Anticipated Discharge Date Admission Date: January 23, 2022 Subjective Patient seen and examined at bedside. No acute distress, no adverse events overnight Patient was little lethargic compared to yesterday but still answering all the questions appropriately He was on 8 L nasal cannula saturating 94-95% I went down to 5 L Denied any headache, no nausea, no vomiting Did use BiPAP overnight Review of Systems Review of Systems: All systems reviewed & are unremarkable except as noted in Subjective Physical Exam Physical Exam: Constitutional: No acute distress HEENT: EOMI, PERRLA Respiratory system: Decreased air entry bilaterally, more decreased on the right side, no wheeze, rhonchi, positive crackles bilaterally CVS: S1-S2 positive, no murmurs or gallops Abdomen: Soft, nontender, nondistended, positive bowel sounds x4, obese Extremities: +2 pulses bilaterally radialis/ dorsalis pedis, no cyanosis,+1 edema Neuro: Awake alert oriented to self and place Psych: Normal mood and affect G/U: No Valerio Skin: no rashes, warm and dry Lymphatic: no cervical or axillary lymphadenopathy Results & Data Results & Data ([facility]) Vital Signs (Past 12 Hours) Vital Signs Temp Pulse Pulse Resp BP Pulse Ox 01/27/22 11:40 37.2 C 72 16 116/74 91 01/27/22 07:53 36.4 C L 70 19 112/73 98 01/27/22 07:16 61 16 95 01/27/22 03:59 36.8 C 66 22 126/72 95 01/27/22 03:15 67 18 96 Laboratory Results 01/27/22 06:54 01/27/22 06:54 PG Care Time/CCT Total # of Minutes Spent Total Time Spent with Patient: Total time spent is greater than 50% in coordination of care (as documented) at patient's floor/unit and/or counseling patient: Coding Level of Care Code 29578 Subseq Hosp Care Lvl 2 Diagnoses Acute on chronic respiratory failure with hypoxia and hypercapnia J96.21; J96.22 Aspiration pneumonia of right lower lobe J69.0 Aspiration pneumonia type: unspecified Atelectasis, right J98.11 Obstructive lung disease J44.9 AMBERLY (obstructive sleep apnea) G47.33 Pickwickian syndrome E66.2
[2022-01-27 15:54] LABS: Base Excess ABG 12.2 mEq/L (-9-1.8); HCO3 ABG 38 mmol/L (19-24); Oxygen Saturation ABG 96.9 % (90-95); PCO2 ABG 59 mmHg (35-46); PO2 ABG 90 mmHg (80-95); pH ABG 7.43 (7.35-7.45)
--- NOTE | 2022-01-27 15:58 | Hospitalist Progress Note ---
Date of Service January 27, 2022 Assessment & Plan (1) Acute on chronic respiratory failure with hypoxia and hypercapnia: Plan: Acute on chronic respiratory failure with hypoxia and hypercapnia/right lower lobe aspiration pneumonia and effusion ABG in the morning was fine Currently patient is lethargic Not sure if this is because of underlying psychiatric disease or respiratory failure Proceed with repeat ABG in the afternoon Speech saw patient this morning * --> As long as oral care provided and patient able to be fully upright he was fine with oatmeal, banana, and toast this morning, had chicken for lunch. Can continue diet with aspiration precautions/oral care as tolerated * Will hold off on consideration for PEG tube at this time (would need done surgically as done previously due to central obesity per GI), but will continue conversations regarding need for tracheostomy and Mr Harvey primary goals are to #1 eat, #2 breath and given cycle as well documented/outlined by speech therapy, this would likely assist with prevention of continuing cycle Iron replacement for anemia/low iron --> cont while inpatient (2) Aspiration pneumonia of right lower lobe: Plan: chronic needs to be upright for meals, oral hygiene diet as tolerated -- tolerating well today as long as measures in place, would benefit from trach as outlined Per Speech: Patient MUST be fully upright in bed, fully awake/alert, oral hygiene completed prior to meal, direct supervision with oral intake. (3) HLD (hyperlipidemia): Plan: atorvastatin 40 mg at bedtime as able to take (4) HTN (hypertension): Plan: Currently, the blood pressure fairly controlled with the current regimen (5) Diabetes: Plan: Last A1c Aug 2021, 6.8 Sliding scale, BSGs accepatble and will monitor Add lantus if needed however BSGs well controlled but could add if needed as tolerating diet (6) Seizure: Plan: Seizure disorder/anxiety depression/dementia- Continue divalproex, donepezil, Seroquel and sertraline as able Prior valproic acid level last admission low at 30, but had been NPO due to aspiration/intubation --> on 250mg BID outpatient however this is for MOOD Of note, there was a concern for patient having underlying seizure disorder, but no records from [facility], patient denies history of this. confirmed such, no history of such No need for increased depakote given no hx seizure given sub levels (7) Anxiety and depression: Plan: See above (8) Dementia: Plan: See above (9) Left knee pain: Plan: X-ray showed osteoarthritis no pain on movement (10) History of COVID-19: Plan: In September and November of this year Treatment under #1 at [facility] and did not require hospitalization (11) Weakness: Plan: 2nd to above PT/OT consulted Plan: Lovenox for DVT Prophylaxis Pulm to further discuss trach w/ patient. ENT consultation placed but have not heard back from Dr Gibson. May need to reach out in AM for definitive plan moving forward regarding timing -- he would be excellent candidate for speaking valve after tracheostomy Admission and Anticipated Discharge Date Admission Date: January 23, 2022 Subjective The patient used BiPAP last night however currently lethargic does not involve any communication, ABG in the morning looks fine, will repeat ABG in the afternoon Review of Systems Review of Systems: he is lethargic she does not involve in communication Physical Exam Physical Exam: Constitutional: No acute distress HEENT: EOMI, PERRLA Respiratory system: Decreased air entry bilaterally, more decreased on the right side, no wheeze, rhonchi, positive crackles bilaterally CVS: S1-S2 positive, no murmurs or gallops Abdomen: Soft, nontender, nondistended, positive bowel sounds x4, obese Extremities: +2 pulses bilaterally radialis/ dorsalis pedis, no cyanosis,+1 edema Neuro: Awake alert oriented to self and place Psych: Normal mood and affect G/U: No Valerio Constitutional: well nourished, + ill appearing, + frail appearing, + disheveled and cooperative ENMT: Mouth: + muffled voice (Bipap) and + dry oral mucous membranes Neck: normal visual inspection Respiratory: + uses accessory muscles, + cough and able to speak in complete sentences; no respiratory distress Auscultation: + diminished lung sounds and + wheezes Cardiovascular: Rate/Rhythm: regular rate and regular rhythm Extremities: normal capillary refill; no edema Gastrointestinal (Abdomen): Inspection/Auscultation: normal bowel sounds and + significant pannus Percussion/Palpation: abdomen soft Musculoskeletal: Head/Neck/Chest: head atraumatic Skin: no rashes, warm and dry + ecchymosis and + pallor; no jaundice Neurologic: awake Psychiatric: Orientation: cooperative Insight: + limited insight Judgement: + limited judgement Lymphatic: no cervical or axillary lymphadenopathy Results & Data Results & Data ([facility]) Vital Signs (Past 12 Hours) Vital Signs Temp Pulse Pulse Resp BP Pulse Ox Pulse Ox 01/27/22 15:17 36.7 C 81 16 101/67 98 01/27/22 11:40 37.2 C 72 16 116/74 91 01/27/22 10:00 98 01/27/22 07:53 36.4 C L 70 19 112/73 98 01/27/22 07:16 61 16 95 01/27/22 03:59 36.8 C 66 22 126/72 95 PG Care Time/CCT Total # of Minutes Spent Total Time Spent with Patient: Total time spent is greater than 50% in coordination of care (as documented) at patient's floor/unit and/or counseling patient: Coding Level of Care Code 58148 Subseq Hosp Care Lvl 2 Diagnoses Acute on chronic respiratory failure with hypoxia and hypercapnia J96.21; J96.22 Aspiration pneumonia of right lower lobe J69.0 Aspiration pneumonia type: unspecified HLD (hyperlipidemia) E78.5 HTN (hypertension) I10 Diabetes E11.9 Seizure R56.9 Anxiety and depression F41.9; F32.A Dementia F03.90 Left knee pain M25.562 History of COVID-19 Z86.16 Weakness R53.1 (1) Aspiration pneumonia of right lower lobe Aspiration pneumonia type: unspecified Qualified Code(s): J69.0 - Pneumonitis due to inhalation of food and vomit
[2022-01-27 16:00] LABS: Allen Test POS (Pos)
[2022-01-27] MEDS: ATORVASTATIN 40 MG TAB PO SCH (21:21)
[2022-01-28] MEDS: PIPERACILLIN/TAZOBACTAM 4.5 GM in DEXTROSE 5% 100 ML IV SCH ×2 (04:35→12:44)
[2022-01-28] MEDS: guaiFENesin 600 MG TABCR PO SCH ×2 (07:54→23:30)
[2022-01-28] MEDS: CHOLECALCIFEROL 1,000 UNITS 25 MCG TAB PO SCH (07:54)
[2022-01-28] MEDS: SERTRALINE HCL 100 MG TABLET PO SCH (07:55)
[2022-01-28] MEDS: DONEPEZIL HCL 5 MG TAB PO SCH (07:56)
[2022-01-28] MEDS: DICLOFENAC SOD 1% GEL 100 GM TUBE EXT SCH ×3 (07:56→21:35)
[2022-01-28] MEDS: METOPROLOL TARTRATE 25 MG TAB PO SCH ×2 (08:25→21:33)
[2022-01-28] MEDS: ASPIRIN 81 MG CHEW PO SCH (08:26)
[2022-01-28] MEDS: QUEtiapine FUMARATE 25 MG TABLET PO SCH ×2 (08:27→21:33)
[2022-01-28] MEDS: DIVALPROEX DELAY RELEASE 250 MG TABEC PO SCH ×2 (08:27→21:33)
[2022-01-28] MEDS: UMECLIDINIUM/VILANTEROL 62.5/25MCG 7 PUFFS/INHALER INH SCH (08:28)
[2022-01-28] MEDS: INSULIN ASPART PER UNIT SC SCH ×4 (08:38→21:37)
[2022-01-28] MEDS: ENOXAPARIN INJ 40 MG/0.4 ML SYR SQ SCH ×2 (12:04→23:29)
--- NOTE | 2022-01-28 17:07 | Hospitalist Progress Note ---
Date of Service January 28, 2022 Assessment & Plan (1) Acute on chronic respiratory failure with hypoxia and hypercapnia: Plan: Acute on chronic respiratory failure with hypoxia and hypercapnia/right lower lobe aspiration pneumonia and effusion -2 consecutive ABGs looks fine Stop Zosyn Start Augmentin Care provider cannot take the patient back to Sunday Speech saw patient this morning * --> As long as oral care provided and patient able to be fully upright he was fine with oatmeal, banana, and toast this morning, had chicken for lunch. Can continue diet with aspiration precautions/oral care as tolerated * Will hold off on consideration for PEG tube at this time (would need done surgically as done previously due to central obesity per GI), but will continue conversations regarding need for tracheostomy and Mr Harvey primary goals are to #1 eat, #2 breath and given cycle as well documented/outlined by speech therapy, this would likely assist with prevention of continuing cycle Iron replacement for anemia/low iron --> cont while inpatient (2) Aspiration pneumonia of right lower lobe: Plan: chronic needs to be upright for meals, oral hygiene diet as tolerated -- tolerating well today as long as measures in place, would benefit from trach as outlined Per Speech: Patient MUST be fully upright in bed, fully awake/alert, oral hygiene completed prior to meal, direct supervision with oral intake. (3) HLD (hyperlipidemia): Plan: atorvastatin 40 mg at bedtime as able to take (4) HTN (hypertension): Plan: Currently, the blood pressure fairly controlled with the current regimen (5) Diabetes: Plan: Last A1c Aug 2021, 6.8 Sliding scale, BSGs accepatble and will monitor Add lantus if needed however BSGs well controlled but could add if needed as tolerating diet (6) Seizure: Plan: Seizure disorder/anxiety depression/dementia- Continue divalproex, donepezil, Seroquel -The patient is lethargic I stop Zoloft today cut down the dose of Seroquel --on 250mg BID outpatient however this is for MOOD No need for increased depakote given no hx seizure given sub levels (7) Anxiety and depression: Plan: See above (8) Dementia: Plan: See above (9) Left knee pain: Plan: X-ray showed osteoarthritis no pain on movement (10) History of COVID-19: Plan: In September and November of this year Treatment under #1 at [facility] and did not require hospitalization (11) Weakness: Plan: 2nd to above PT/OT consulted Plan: Lovenox for DVT Prophylaxis Admission and Anticipated Discharge Date Admission Date: January 23, 2022 Subjective The patient used BiPAP last night however currently lethargic does not involve any communication, ABG in the morning looks fine, will repeat ABG in the afternoon Physical Exam Physical Exam: Constitutional: No acute distress HEENT: EOMI, PERRLA Respiratory system: Decreased air entry bilaterally, more decreased on the right side, no wheeze, rhonchi, positive crackles bilaterally CVS: S1-S2 positive, no murmurs or gallops Abdomen: Soft, nontender, nondistended, positive bowel sounds x4, obese Extremities: +2 pulses bilaterally radialis/ dorsalis pedis, no cyanosis,+1 edema Neuro: Awake alert oriented to self and place Psych: Normal mood and affect G/U: No Valerio Constitutional: well nourished, + ill appearing, + frail appearing, + disheveled and cooperative ENMT: Mouth: + muffled voice and + dry oral mucous membranes Neck: normal visual inspection Respiratory: able to speak in complete sentences; no respiratory distress, does not use accessory muscles and no cough Auscultation: no diminished lung sounds Cardiovascular: Rate/Rhythm: regular rate and regular rhythm Extremities: normal capillary refill; no edema Gastrointestinal (Abdomen): Inspection/Auscultation: normal bowel sounds Percussion/Palpation: abdomen soft Musculoskeletal: Head/Neck/Chest: head atraumatic Skin: no rashes, warm and dry + ecchymosis and + pallor; no jaundice Neurologic: awake Psychiatric: Orientation: cooperative Insight: + limited insight Judgement: + limited judgement Lymphatic: no cervical or axillary lymphadenopathy Results & Data Results & Data ([facility]) Vital Signs (Past 12 Hours) Vital Signs Temp Pulse Pulse Resp BP Pulse Ox Pulse Ox 01/28/22 15:31 37.0 C 64 18 100/48 L 95 01/28/22 11:21 36.4 C L 82 18 116/55 L 95 01/28/22 10:00 98 01/28/22 07:26 37.0 C 75 20 118/66 96 01/28/22 07:20 77 20 97 01/28/22 06:18 73 PG Care Time/CCT Total # of Minutes Spent Total Time Spent with Patient: Total time spent is greater than 50% in coordination of care (as documented) at patient's floor/unit and/or counseling patient: Coding Level of Care Code 05000 Subseq Obs Care Lvl 3 Diagnoses Acute on chronic respiratory failure with hypoxia and hypercapnia J96.21; J96.22 Aspiration pneumonia of right lower lobe J69.0 Aspiration pneumonia type: unspecified HLD (hyperlipidemia) E78.5 HTN (hypertension) I10 Diabetes E11.9 Seizure R56.9 Anxiety and depression F41.9; F32.A Dementia F03.90 Left knee pain M25.562 History of COVID-19 Z86.16 Weakness R53.1 (1) Aspiration pneumonia of right lower lobe Aspiration pneumonia type: unspecified Qualified Code(s): J69.0 - Pneumonitis due to inhalation of food and vomit
[2022-01-28] MEDS: ATORVASTATIN 40 MG TAB PO SCH (21:33)
[2022-01-29] MEDS: CHOLECALCIFEROL 1,000 UNITS 25 MCG TAB PO SCH (08:43)
[2022-01-29] MEDS: DICLOFENAC SOD 1% GEL 100 GM TUBE EXT SCH ×2 (08:43→13:08)
[2022-01-29] MEDS: ASPIRIN 81 MG CHEW PO SCH (08:43)
[2022-01-29] MEDS: DONEPEZIL HCL 5 MG TAB PO SCH (08:44)
[2022-01-29] MEDS: QUEtiapine FUMARATE 25 MG TABLET PO SCH (08:45)
[2022-01-29] MEDS: UMECLIDINIUM/VILANTEROL 62.5/25MCG 7 PUFFS/INHALER INH SCH (08:46)
[2022-01-29] MEDS: INSULIN ASPART PER UNIT SC SCH ×2 (08:58→11:54)
[2022-01-29] MEDS ORDERED: SERTRALINE HCL 50 MG TABLET PO SCH (09:00)
[2022-01-29] MEDS: DIVALPROEX DELAY RELEASE 250 MG TABEC PO SCH (09:38)
[2022-01-29] MEDS: METOPROLOL TARTRATE 25 MG TAB PO SCH (09:39)
[2022-01-29] MEDS: ENOXAPARIN INJ 40 MG/0.4 ML SYR SQ SCH (11:23)
[2022-01-29] MEDS: guaiFENesin 600 MG TABCR PO SCH (11:23)
[2022-01-29] MEDS ORDERED: RAPID SEQUENCE INDUCTION BAG ONE (11:38)
--- NOTE | 2022-01-29 12:47 | Discharge Summary ---
Date of Service January 29, 2022 Admission HPI Per Admitting Provider The patient is a 71-year-old male with a past medical history including acute on chronic respiratory failure, aspiration pneumonia right lower lobe, dementia, CHF, diabetes, hyperlipidemia, hypertension, and anxiety and depression. He was most recently brought to the emergency department at [facility] on 01/15/2022, where he was intubated and admitted to the ICU, and was then successfully extubated and was transferred to [facility] for rehab. This most recent hospitalization was from 01/15-01/20/2022. He was presented to hospital with acute on chronic hypoxic respiratory failure, imaging studies showed evidence of aspiration pneumonitis in the right lower lobe patient was found to have respiratory acidosis. Principal Diagnosis #Aspiration pneumonitis #Encephalopathy #Hypercapnic hypoxic respiratory failure acute on chronic Discharge Exam Constitutional: No acute distress HEENT: EOMI, PERRLA Respiratory system: Decreased air entry bilaterally, CVS: S1-S2 positive, no murmurs or gallops Abdomen: Soft, nontender, nondistended, positive bowel sounds x4, obese Extremities: +2 pulses bilaterally radialis/ dorsalis pedis, no cyanosis Neuro: Awake alert oriented to self and place Psych: Normal mood and affect G/U: No Valerio Constitutional well nourished, + ill appearing, + frail appearing, + disheveled and cooperative ENMT Mouth: + muffled voice and + dry oral mucous membranes Neck normal visual inspection Respiratory able to speak in complete sentences; no respiratory distress, does not use accessory muscles and no cough Auscultation: no diminished lung sounds Cardiovascular Rate/Rhythm: regular rate and regular rhythm Extremities: normal capillary refill; no edema Gastrointestinal (Abdomen) Inspection/Auscultation: normal bowel sounds Percussion/Palpation: abdomen soft Musculoskeletal Head/Neck/Chest: head atraumatic Skin no rashes, warm and dry + ecchymosis and + pallor; no jaundice Neurologic awake Psychiatric Orientation: cooperative Insight: + limited insight Judgement: + limited judgement Lymphatic no cervical or axillary lymphadenopathy Discharge Data Allergies Allergy/AdvReac Type Severity Reaction Status Date / Time ketorolac [From Toradol] Allergy Unknown Unknown Verified 01/15/22 12:21 Consultations 01/23/22 05:26 ED Decision to Admit Stat 01/23/22 10:37 Consult Pulmonology Routine 01/23/22 18:21 Consult Palliative Care Routine 01/25/22 09:24 Consult Gastroenterology Routine 01/26/22 16:53 Consult Otolaryngology (Head and Neck) Routine Hospital Course (1) Acute on chronic respiratory failure with hypoxia and hypercapnia: The patient presented to the hospital with acute on chronic hypoxic respiratory failure hypercapnia, respiratory acidosis, he had evidence of right lower lobe aspiration imaging studies, started on BiPAP, started on Zosyn, responded well, due to Lasix consecutive ABGs are within normal limits, patient completed a course of treatment with antibiotics. The current BiPAP setting is 18/8 35% from 8 PM to 8 AM and as needed and in the daytime, patient was stuporous during the daytime, that was felt to be secondary to medication side effects (patient was on Zoloft 150s, Seroquel and Depakote) the dose of medication of the adjusted (Zoloft dosage was decreased) patient was seen by speech and the following recommendation must be followed to prevent readmission 1. Alternate solids and liquids 2. Supervised meals 3. Fully alert and operate during the meals 4. Give meds in the carrier 5. Oral hygiene completed prior to meals 6. Oral hygiene 7. HOB 30 degrees all time As long as oral care provided and patient able to be fully upright he was fine with oatmeal, banana, and toast this morning, had chicken for lunch. Can continue diet with aspiration precautions/oral care as tolerated * Will hold off on consideration for PEG tube at this time (would need done surgically as done previously due to central obesity per GI), but will cont inue conversations regarding need for tracheostomy and Mr Harvey primary goals are to #1 eat, #2 breath and given cycle as well documented/outlined by speech therapy, this would likely assist with prevention of continuing cycle * * Needs ABG in 1 to 2 weeks to titrate his BiPAP machine, follow with board writer (2) Aspiration pneumonia of right lower lobe: chronic needs to be upright for meals, oral hygiene diet as tolerated -- tolerating well today as long as measures in place, would benefit from trach as outlined Per Speech: Patient MUST be fully upright in bed, fully awake/alert, oral hygiene completed prior to meal, direct supervision with oral intake. (3) HLD (hyperlipidemia): atorvastatin 40 mg at bedtime as able to take (4) HTN (hypertension): Currently, the blood pressure fairly controlled with the current regimen (5) Diabetes: Last A1c Aug 2021, 6.8 Sliding scale, BSGs accepatble and will monitor Add lantus if needed however BSGs well controlled but could add if needed as tolerating diet (6) Seizure: As per discussion with the family there is no history of seizure Patient most likely taken Depakote for mood stabilizing Patient was lethargic, the dose of Zoloft was cut at 50, currently patient is much more alert daytime (7) Anxiety and depression: See above (8) Dementia: See above (9) Left knee pain: X-ray showed osteoarthritis no pain on movement (10) History of COVID-19: In September and November of this year Treatment under #1 at [facility] and did not require hospitalization (11) Weakness: 2nd to above PT/OT consulted (12) Encephalopathy: Most likely medication side effect, patient taking Seroquel Depakote and Zoloft for mood stabilizing upon admission to the hospital patient was lethargic daytime, when the dose of Zoloft were cut down to 50 he is much more awake Total Time Total Time Spent Total Time Spent (In Minutes): 45 Discharge Plan Discharge Items Patient Disposition: Transfer Inpatient Rehab Fac Reason For Visit: ACUTE ON CHRONIC RESPIRATORY FAILURE WITH HYPOXIA Discharge Diagnosis: Hypercapnic ,hypoxic respiratory failure, aspiration pneumonitis, encephalopathy Condition on Discharge: Fair Goals: Prevent readmission to the hospital Activity: Resume your previous activity Lifting: Gradually increase as tolerated Bathing: No limitations Sexual Activity: When tolerated Exercise/Sports: Gradually increase as tolerated Driving/Machine Use: No limitations Weightbearing: Full weightbearing Non-emergency contact: Primary Care Provider and [employer] Call non-emergency contact if: you have any medication questions Follow-up/Referrals: [facility], [Primary Care Provider] - Claudio Montelongo MD [Physician] - (Hypercapnic respiratory failure acute on chronic hypoxia obstructive sleep apnea on BiPAP at night recurrent admission to the hospital) Diet: Carb Consistent or DM2, Heart Healthy and Low Sodium (2gm) Addtl Attending Provider Instructions: Patient is to be followed by board writer, to titrate his BiPAP setting in 2 w eeks Pending Studies at Discharge: Yes Studies:: Sleep study needs to follow-up with pulmonology Stand-Alone Forms: My [facility] Skilled Items Patient informed of condition?: Yes DNR: Yes Discharge Level of Care: Skilled Communicable Disease: No Discharge Prognosis: Stable Lines: None Urinary Catheter: No Medications and DC Order Prescriptions: No Action ipratropium-albuterol 0.5 mg-3 mg(2.5 mg base)/3 mL Solution For Nebulization 3 ml INHALATION Q4H RF: 0 terazosin 2 mg capsule 2 mg PO QAM RF: 0 atorvastatin 40 mg Tablet 40 mg PO HS RF: 0 donepezil [Aricept] 5 mg Tablet 5 mg PO QAM RF: 0 divalproex 250 mg Tablet,Delayed Release (Dr/Ec) 250 mg PO BID RF: 0 aspirin 81 mg Tablet,Chewable 81 mg PO QAM RF: 0 cholecalciferol (vitamin D3) 25 mcg (1,000 unit) Tablet 25 mcg PO QAM RF: 0 acetazolamide 500 mg Capsule, Extended Release 500 mg PO QAM RF: 0 sertraline 100 mg Tablet 100 mg PO QAM RF: 0 Lactobacillus acidophilus Capsule 0 mmu cells PO QAM Qty: 0 RF: 0 quetiapine [Seroquel] 50 mg Tablet 50 mg PO BID RF: 0 guaifenesin 600 mg Tablet Extended Release 12hr 600 mg PO Q12H RF: 0 pediatric multivitamin Tablet,Chewable 1 tab PO QAM RF: 0 Lantus Solostar U-100 Insulin 100 unit/mL (3 mL) Insulin Pen 35 unit SUBCUT HS RF: 0 potassium chloride 20 mEq Tablet Extended Release 20 meq PO WM RF: 0 theophylline 600 mg Tablet Extended Release 24 Hr 600 mg PO QAM RF: 0 metoprolol tartrate 25 mg Tablet 12.5 mg PO BID RF: 0 acetaminophen 325 mg Tablet 650 mg PO Q4 MDD 3g PRN (Reason: Fever Or Pain) RF: 0 Humulin R Regular U-100 Insuln 100 unit/mL Solution 1 sliding scale dose SUBCUT ACHS RF: 0 furosemide 20 mg Tablet 20 mg PO QAM Qty: 30 RF: 0 Discharge Orders: Discharge Order (Routine); Ordered 01/29/22 Ordered By: Bulmaro Vogt/Other Patient Handouts: COPD Diabetes Admission Data Admit Date/Time: 01/23/22 06:17 Attending Provider: Bulmaro Mobley Admit Provider: Salvador Cardoso Primary Care Provider: [facility], Other Providers: Salvador Cardoso ; Claudio Montelongo ; Janis Cormier ; Cipriano Dumont ; Lisa Lowery Coding Level of Care Code D/C DAY MANAGEMENT >30 MINS Diagnoses Acute on chronic respiratory failure with hypoxia and hypercapnia J96.21; J96.22 Aspiration pneumonia of right lower lobe J69.0 Aspiration pneumonia type: unspecified HLD (hyperlipidemia) E78.5 HTN (hypertension) I10 Diabetes E11.9 Seizure R56.9 Anxiety and depression F41.9; F32.A Dementia F03.90 Left knee pain M25.562 History of COVID-19 Z86.16 Weakness R53.1 Encephalopathy G93.40
== END 2022-01-29 15:34 | DRG 177 ==
LOC: ED 04:43 → SUATTDRO 06:17 → 2S 06:17

== ENCOUNTER 2022-03-16 16:59 | Inpatient (IN) ==
[2022-03-16] MEDS ORDERED: PIPERACILL/TAZOBAC CONSULT ACTIVE PRN (17:20)
[2022-03-16] MEDS ORDERED: PIPERACILLIN/TAZOBACTAM 4.5 GM/120 ML BAG IV ONE (17:20)
[2022-03-16] MEDS ORDERED: dexAMETHasone**PF** 10 MG/ML VIAL IV ONE (17:20)
--- NOTE | 2022-03-16 17:42 | Emergency Department Note ---
Impression & Plan Pneumonia, Encephalopathy, Acute on chronic respiratory failure with hypoxia and hypercapnia, Acute exacerbation of chronic obstructive airways disease, Acute respiratory acidosis ED Provider Note NAME: TREVA PERKINS AGE: 71 SEX: M : 1950 ARRIVES VIA: Ambulance INFORMANT: Patient, EMS ED PROVIDER(S): Bonilla Chaparro DO CHIEF COMPLAINT: Difficulty breathing HPI: The patient is a 71-year-old male who presented to the emergency department for an evaluation of difficulty breathing. The patient was sent by ambulance from [facility] for an evaluation of difficulty breathing. The patient was found of severe hypoxia. BiPAP was attempted prior to arrival but the patient could not tolerate this modality. He was placed on a nonrebreather mask. He does have a history of CHF as well as obstructive sleep apnea. The patient does not answer questions appropriately. It is difficult to assess if the patient normally wears oxygen. He states that he has had a cough as well as difficulty breathing that worsened with exertion or lying flat. He denies having any lower extremity swelling worse than usual. ROS: See above HPI for pertinent positives & negatives. A total of 10 systems reviewed and were otherwise negative. PAST MEDICAL HISTORY: See Below PAST SURGICAL HISTORY: See Below FAMILY HISTORY: See Below SOCIAL HISTORY: See Below HOME MEDICATIONS: See Below ALLERGIES: See Below VITALS: See Below PHYSICAL EXAMINATION: GENERAL: The patient is awake and alert. He is somewhat somnolent. He follows commands slowly. EYES: The conjunctivae are clear. The pupils are round and reactive. EARS, NOSE, MOUTH AND THROAT: The nose is without any evidence of any deformity. NECK: The neck is nontender and supple. RESPIRATORY: Diminished breath sounds are noted throughout. There were rales in the lung roblero. Poor air movement was noted. CARDIOVASCULAR: Regular rate and rhythm noted there no murmurs rubs or gallops normal S1 normal S2. GASTROINTESTINAL: The abdomen is soft. Abdomen is nontender. MUSCULOSKELETAL/EXTREMITIES: There is no evidence of gross deformity full range of motion is noted in the hips and shoulders. SKIN: Skin was warm and dry. There is pedal edema bilaterally. Pulses were symmetric in both feet. NEUROLOGIC: Patient is awake and oriented to person place and time. MEDICAL DECISION MAKING: The patient is a 71-year-old male who presented to the emergency department for an evaluation of difficulty breathing. The patient's history and physical exam appear to be consistent with pneumonia. He was febrile and tachycardic. He was treated with supplemental oxygen. The patient was reevaluated multiple times. I discussed the patient's laboratory and radiographic studies with him. Given his presentation and findings I discussed this case with the on-call [facility]ist. They have agreed to evaluate the patient in the emergency department for further management and disposition. He was treated with IV fluids and IV antibiotics. He was also treated with bronchodilator therapy and steroids. IV fluids were not aggressively given with his heart history taken into account. Triage Nursing notes reviewed. Prior medical records reviewed Vital Signs: reviewed and remarkable for tachycardia and initial fever. Differential diagnosis: Reactive airway disease, pneumonia, pneumothorax, COPD, CHF, infections, cardiac ischemia, pulmonary embolism, musculoskeletal, gastrointestinal, as well as other pathologies. ER treatment provided: See below Diagnostics interpreted by me: ECG: EKG was obtained in the emergency department. My interpretation is sinus tachycardia 130 bpm. There were no PVCs noted. This was compared to a tracing from January 23, 2022. There is an increase in the rate otherwise no changes were noted. Cardiac Monitoring: An order was placed for continuous cardiac monitoring. The monitor shows a rate of 113 bpm with sinus tachycardia Laboratory studies: As stated above and show below. Imaging studies: See below Consultation(s): I discussed this case with Dr. Cardoso who is on-call for the [facility]ist group. ED COURSE: Procedures: none Critical Care: I have personally spent greater than 55 minutes of critical care time in the direct management of this patient. This includes bedside care, interpretation of diagnostic studies, and testing, discussion with consultants, patient, and family members, and other required patient management activities. This 55 minutes is in excess of all separately billable procedures. Past Med/Surg History Medical History Aspiration pneumonia of right lower lobe CHF (congestive heart failure) Dementia Diabetes HLD (hyperlipidemia) HTN (hypertension) Hydronephrosis of right kidney No pertinent family history Obesity Obstructive lung disease Right lower lobe pneumonia Smoker Weakness Surgical History No pertinent past surgical history Social History Smoking Status: Never smoker Second Hand Exposure: No; Hx Alcohol Use: No Hx Substance Use: No Preferred Language: Hungarian Communication Ability: Effective Boxer Operator Required: No Beliefs That Will Affect Care: None marital status: Current Living Situation: Rehab How many Children do You have: 2 Feels Safe at Home: Yes Assistive Devices: BiPap, Glasses and Oxygen - Continuous Allergies Allergies Allergy/AdvReac Type Severity Reaction Status Date / Time ketorolac [From Toradol] Allergy Unknown Unknown Verified 03/16/22 20:26 Home Meds Home Medications Medication Instructions Recorded Confirmed Lactobacillus acidophilus 0 mmu cells PO QAM #0 07/31/21 03/16/22 acetaminophen 325 mg tablet 650 mg PO Q4 PRN MDD 3g 07/31/21 03/16/22 acetazolamide 500 mg 500 mg PO QAM 07/31/21 03/16/22 capsule,extended release aspirin 81 mg chewable tablet 81 mg PO QAM 07/31/21 03/16/22 atorvastatin 40 mg tablet 40 mg PO HS 07/31/21 03/16/22 cholecalciferol (vitamin D3) 25 25 mcg PO QAM 07/31/21 03/16/22 mcg (1,000 unit) tablet divalproex 250 mg tablet,delayed 250 mg PO BID 07/31/21 03/16/22 release insulin regular human 100 unit/mL 1 sliding scale dose SUBCUT ACHS 07/31/21 03/16/22 injection solution (Humulin R Regular U-100 Insulin) metoprolol tartrate 25 mg tablet 12.5 mg PO BID 07/31/21 03/16/22 pediatric multivitamin 1 tab PO QAM 07/31/21 03/16/22 potassium chloride 20 mEq 20 meq PO TIDM 07/31/21 03/16/22 tablet,extended release quetiapine 50 mg tablet (Seroquel) 50 mg PO BID 07/31/21 03/16/22 ipratropium 0.5 mg-albuterol 3 mg 3 ml INHALATION Q6H 01/15/22 03/16/22 (2.5 mg base)/3 mL nebulization soln terazosin 2 mg capsule 2 mg PO QAM 01/15/22 03/16/22 diclofenac sodium 1 % topical gel 4 g EXT TID 05/12/22 05/12/22 (Voltaren Arthritis Pain) Previous Rx's Medication Instructions Recorded furosemide 20 mg tablet 20 mg PO QAM #30 tab 08/19/21 sertraline 50 mg tablet 50 mg PO QAM #30 tab 01/29/22 Results & Data (ED) Vital Signs Vital Signs - 24 hr 03/16/22 17:06 03/16/22 17:15 03/16/22 17:30 Temperature 38.8 C H Temperature Source Oral Pulse Rate 130 H 131 H Pulse Rate [Apical] Respiratory Rate 22 28 H Respiratory Effort / Characteristics Non-Labored Labored Respiratory Depth Normal Respiratory Pattern Blood Pressure [Right Arm] Blood Pressure Mean [Right Arm] Pulse Oximetry 98 98 98 Oxygen Delivery Method Non-rebreather Non-rebreather Oxygen Flow Rate 15 Fraction of Inspired Oxygen Sepsis Recent Fever Within 48 Hours Yes Sepsis New/Unexplained Change in Mental Status Yes Sepsis Action Taken by Nursing No Action Required 03/16/22 18:00 03/16/22 18:30 03/16/22 19:00 Temperature Temperature Source Pulse Rate 132 H Pulse Rate [Apical] 129 H 128 H Respiratory Rate 28 H 28 H 28 H Respiratory Effort / Characteristics Short of Breath Short of Breath Respiratory Depth Respiratory Pattern Tachypnea Tachypnea Blood Pressure [Right Arm] 121/75 131/76 Blood Pressure Mean [Right Arm] 90 94 Pulse Oximetry 98 94 97 Oxygen Delivery Method Room Air Oxymask Non-rebreather Oxygen Flow Rate 15 Fraction of Inspired Oxygen Sepsis Recent Fever Within 48 Hours Sepsis New/Unexplained Change in Mental Status Sepsis Action Taken by Nursing 03/16/22 19:30 03/16/22 19:45 03/16/22 20:00 Temperature 36.7 C Temperature Source Oral Pulse Rate Pulse Rate [Apical] 121 H 121 H 124 H Respiratory Rate 33 H 35 H 36 H Respiratory Effort / Characteristics Respiratory Depth Respiratory Pattern Tachypnea Blood Pressure [Right Arm] 153/88 H 157/84 H Blood Pressure Mean [Right Arm] 109 108 Pulse Oximetry 92 94 94 Oxygen Delivery Method Non-rebreather BiPAP Oxygen Flow Rate Fraction of Inspired Oxygen Sepsis Recent Fever Within 48 Hours Sepsis New/Unexplained Change in Mental Status Sepsis Action Taken by Nursing 03/16/22 20:01 03/16/22 20:33 03/16/22 21:05 Temperature Temperature Source Pulse Rate 122 H Pulse Rate [Apical] 112 H 113 H Respiratory Rate 28 H 27 H 22 Respiratory Effort / Characteristics Non-Labored Spontaneous Respiratory Depth Normal Respiratory Pattern Tachypnea Blood Pressure [Right Arm] 124/83 Blood Pressure Mean [Right Arm] 96 Pulse Oximetry 93 92 97 Oxygen Delivery Method Oxygen Flow Rate Fraction of Inspired Oxygen 60 Sepsis Recent Fever Within 48 Hours Sepsis New/Unexplained Change in Mental Status Sepsis Action Taken by Residential Medications Current Medication List: was personally reviewed by me Laboratory Data Attestation: I reviewed the patient's lab results. Result diagrams: 03/16/22 17:19 03/16/22 17:19 Lab Results 03/16/22 03/16/22 03/16/22 Range/Units 17:19 17:19 17:19 WBC 18.30 H (4.8-10.8) K/uL RBC 3.84 L (4.7-6.1) M/uL Hgb 10.3 L (14.0-18.0) g/dL Hct 36.6 L (42-52) % MCV 95.3 (80-100) fL MCH 26.8 (25-34) pg MCHC 28.1 L (32-36) g/dL RDW Std Deviation 58.4 H (36.4-46.3) fL RDW Coeff of Raquel 16.5 H (11.5-14.5) % Plt Count 214 (130-400) K/uL MPV 10.9 H (7.4-10.4) fL Immature Gran % (Auto) 0.5 % Neut % (Auto) 89.6 % Lymph % (Auto) 4.9 % [place] % (Auto) 4.8 % Eos % (Auto) 0.1 % Baso % (Auto) 0.1 % Neut # (Auto) 16.42 H (1.4-6.5) K/uL Lymph # (Auto) 0.89 L (1.2-3.4) K/uL [place] # (Auto) 0.88 H (0.11-0.59) K/uL Eos # (Auto) 0.01 (0-0.5) K/uL Baso # (Auto) 0.01 (0-0.2) K/uL Immature Gran # (Auto) 0.09 H (0.00-0.02) K/uL PT 12.1 H (9.0-12.0) Seconds INR 1.1 (0.9-1.1) APTT 33.2 H (21.0-31.0) Seconds PTT Ratio 1.2 ABG pH ABG pCO2 ABG pO2 ABG HCO3 ABG O2 Saturation ABG Base Excess Vernon Test VBG pH (7.36-7.41) VBG pCO2 (38-50) mmHg VBG pO2 mmHg VBG HCO3 mmol/L VBG O2 Saturation % VBG Base Excess mEq/L Barometric Pressure mm/Hg Oxygen Given Sodium 141 (136-145) mmol/L Potassium 4.1 (3.5-5.1) mmol/L Chloride 98 (98-107) mmol/L Carbon Dioxide 39 H (21-32) mmol/L Anion Gap 4 (3-11) BUN 14 (6-23) mg/dl Creatinine 0.50 L (0.6-1.4) mg/dl Est Cr Clr Drug Dosing 191.0 ml/min Est GFR ( Amer) 128.2 ml/min Est GFR (Non-Af Amer) 110.6 ml/min BUN/Creatinine Ratio 28.0 H (10-20) Glucose 164 H (70-99(Fasting)) mg/dl Lactate (0.4-2.0) mmol/L Calcium 9.3 (8.5-10.1) mg/dl Magnesium 1.8 (1.7-2.4) mg/dl Total Bilirubin 0.4 (0.2-1.0) mg/dl AST 9 L (13-39) U/L ALT 4 L (7-52) U/L Alkaline Phosphatase 66 (34-104) U/L Ammonia (18-72) umol/L Troponin I High Sens 6.7 (0-20) pg/ml Total Protein 7.4 (6.0-8.3) gm/dl Albumin 3.4 (3.4-5.0) gm/dl Globulin 4.0 (2.5-4.0) gm/dl Albumin/Globulin Ratio 0.9 (0.9-2) Procalcitonin (0-0.5) ng/ml Valproic Acid (50-100) mcg/ml Adenovirus (PCR) (NotDetected) B. pertussis DNA (PCR) (NotDetected) B.parapertussis DNA PCR (NotDetected) C. pneumoniae DNA (PCR) (NotDetected) Coronavirus OC43 (PCR) (NotDetected) Coronavirus HKU1 (PCR) (NotDetected) Coronavirus 229E (PCR) (NotDetected) SARS-CoV-2 (PCR) (NotDetected) Coronavirus NL63 (PCR) (NotDetected) Human Metapneumovir PCR (NotDetected) Influenza Type A (PCR) (NotDetected) Influenza Type B (PCR) (NotDetected) M. pneumoniae (PCR) (NotDetected) Parainfluenza 1 (PCR) (NotDetected) Parainfluenza 2 (PCR) (NotDetected) Parainfluenza 3 (PCR) (NotDetected) Parainfluenza 4 (PCR) (NotDetected) RSV (PCR) (NotDetected) Entero/Rhino (PCR) (NotDetected) 03/16/22 03/16/22 03/16/22 Range/Units 17:19 17:19 18:22 WBC (4.8-10.8) K/uL RBC (4.7-6.1) M/uL Hgb (14.0-18.0) g/dL Hct (42-52) % MCV (80-100) fL MCH (25-34) pg MCHC (32-36) g/dL RDW Std Deviation (36.4-46.3) fL RDW Coeff of Raquel (11.5-14.5) % Plt Count (130-400) K/uL MPV (7.4-10.4) fL Immature Gran % (Auto) % Neut % (Auto) % Lymph % (Auto) % [place] % (Auto) % Eos % (Auto) % Baso % (Auto) % Neut # (Auto) (1.4-6.5) K/uL Lymph # (Auto) (1.2-3.4) K/uL [place] # (Auto) (0.11-0.59) K/uL Eos # (Auto) (0-0.5) K/uL Baso # (Auto) (0-0.2) K/uL Immature Gran # (Auto) (0.00-0.02) K/uL PT (9.0-12.0) Seconds INR (0.9-1.1) APTT (21.0-31.0) Seconds PTT Ratio ABG pH ABG pCO2 ABG pO2 ABG HCO3 ABG O2 Saturation ABG Base Excess Vernon Test VBG pH (7.36-7.41) VBG pCO2 (38-50) mmHg VBG pO2 mmHg VBG HCO3 mmol/L VBG O2 Saturation % VBG Base Excess mEq/L Barometric Pressure mm/Hg Oxygen Given Sodium (136-145) mmol/L Potassium (3.5-5.1) mmol/L Chloride (98-107) mmol/L Carbon Dioxide (21-32) mmol/L Anion Gap (3-11) BUN (6-23) mg/dl Creatinine (0.6-1.4) mg/dl Est Cr Clr Drug Dosing ml/min Est GFR ( Amer) ml/min Est GFR (Non-Af Amer) ml/min BUN/Creatinine Ratio (10-20) Glucose (70-99(Fasting)) mg/dl Lactate (0.4-2.0) mmol/L Calcium (8.5-10.1) mg/dl Magnesium (1.7-2.4) mg/dl Total Bilirubin (0.2-1.0) mg/dl AST (13-39) U/L ALT (7-52) U/L Alkaline Phosphatase (34-104) U/L Ammonia (18-72) umol/L Troponin I High Sens (0-20) pg/ml Total Protein (6.0-8.3) gm/dl Albumin (3.4-5.0) gm/dl Globulin (2.5-4.0) gm/dl Albumin/Globulin Ratio (0.9-2) Procalcitonin 0.49 (0-0.5) ng/ml Valproic Acid 29 L (50-100) mcg/ml Adenovirus (PCR) Not Detected (NotDetected) B. pertussis DNA (PCR) Not Detected (NotDetected) B.parapertussis DNA PCR Not Detected (NotDetected) C. pneumoniae DNA (PCR) Not Detected (NotDetected) Coronavirus OC43 (PCR) Not Detected (NotDetected) Coronavirus HKU1 (PCR) Not Detected (NotDetected) Coronavirus 229E (PCR) Not Detected (NotDetected) SARS-CoV-2 (PCR) Not Detected (NotDetected) Coronavirus NL63 (PCR) Not Detected (NotDetected) Human Metapneumovir PCR Not Detected (NotDetected) Influenza Type A (PCR) Not Detected (NotDetected) Influenza Type B (PCR) Not Detected (NotDetected) M. pneumoniae (PCR) Not Detected (NotDetected) Parainfluenza 1 (PCR) Not Detected (NotDetected) Parainfluenza 2 (PCR) Not Detected (NotDetected) Parainfluenza 3 (PCR) Not Detected (NotDetected) Parainfluenza 4 (PCR) Not Detected (NotDetected) RSV (PCR) Not Detected (NotDetected) Entero/Rhino (PCR) Not Detected (NotDetected) 03/16/22 03/16/22 03/16/22 Range/Units 18:24 18:24 18:24 WBC (4.8-10.8) K/uL RBC (4.7-6.1) M/uL Hgb (14.0-18.0) g/dL Hct (42-52) % MCV (80-100) fL MCH (25-34) pg MCHC (32-36) g/dL RDW Std Deviation (36.4-46.3) fL RDW Coeff of Raquel (11.5-14.5) % Plt Count (130-400) K/uL MPV (7.4-10.4) fL Immature Gran % (Auto) % Neut % (Auto) % Lymph % (Auto) % [place] % (Auto) % Eos % (Auto) % Baso % (Auto) % Neut # (Auto) (1.4-6.5) K/uL Lymph # (Auto) (1.2-3.4) K/uL [place] # (Auto) (0.11-0.59) K/uL Eos # (Auto) (0-0.5) K/uL Baso # (Auto) (0-0.2) K/uL Immature Gran # (Auto) (0.00-0.02) K/uL PT (9.0-12.0) Seconds INR (0.9-1.1) APTT (21.0-31.0) Seconds PTT Ratio ABG pH ABG pCO2 ABG pO2 ABG HCO3 ABG O2 Saturation ABG Base Excess Vernon Test VBG pH 7.28 L (7.36-7.41) VBG pCO2 89 H (38-50) mmHg VBG pO2 44 mmHg VBG HCO3 41 mmol/L VBG O2 Saturation 74.2 % VBG Base Excess 11.3 mEq/L Barometric Pressure 737.0 mm/Hg Oxygen Given Sodium (136-145) mmol/L Potassium (3.5-5.1) mmol/L Chloride (98-107) mmol/L Carbon Dioxide (21-32) mmol/L Anion Gap (3-11) BUN (6-23) mg/dl Creatinine (0.6-1.4) mg/dl Est Cr Clr Drug Dosing ml/min Est GFR ( Amer) ml/min Est GFR (Non-Af Amer) ml/min BUN/Creatinine Ratio (10-20) Glucose (70-99(Fasting)) mg/dl Lactate 0.7 (0.4-2.0) mmol/L Calcium (8.5-10.1) mg/dl Magnesium (1.7-2.4) mg/dl Total Bilirubin (0.2-1.0) mg/dl AST (13-39) U/L ALT (7-52) U/L Alkaline Phosphatase (34-104) U/L Ammonia 30.0 (18-72) umol/L Troponin I High Sens (0-20) pg/ml Total Protein (6.0-8.3) gm/dl Albumin (3.4-5.0) gm/dl Globulin (2.5-4.0) gm/dl Albumin/Globulin Ratio (0.9-2) Procalcitonin (0-0.5) ng/ml Valproic Acid (50-100) mcg/ml Adenovirus (PCR) (NotDetected) B. pertussis DNA (PCR) (NotDetected) B.parapertussis DNA PCR (NotDetected) C. pneumoniae DNA (PCR) (NotDetected) Coronavirus OC43 (PCR) (NotDetected) Coronavirus HKU1 (PCR) (NotDetected) Coronavirus 229E (PCR) (NotDetected) SARS-CoV-2 (PCR) (NotDetected) Coronavirus NL63 (PCR) (NotDetected) Human Metapneumovir PCR (NotDetected) Influenza Type A (PCR) (NotDetected) Influenza Type B (PCR) (NotDetected) M. pneumoniae (PCR) (NotDetected) Parainfluenza 1 (PCR) (NotDetected) Parainfluenza 2 (PCR) (NotDetected) Parainfluenza 3 (PCR) (NotDetected) Parainfluenza 4 (PCR) (NotDetected) RSV (PCR) (NotDetected) Entero/Rhino (PCR) (NotDetected) 03/16/22 Range/Units 20:18 WBC (4.8-10.8) K/uL RBC (4.7-6.1) M/uL Hgb (14.0-18.0) g/dL Hct (42-52) % MCV (80-100) fL MCH (25-34) pg MCHC (32-36) g/dL RDW Std Deviation (36.4-46.3) fL RDW Coeff of Raquel (11.5-14.5) % Plt Count (130-400) K/uL MPV (7.4-10.4) fL Immature Gran % (Auto) % Neut % (Auto) % Lymph % (Auto) % [place] % (Auto) % Eos % (Auto) % Baso % (Auto) % Neut # (Auto) (1.4-6.5) K/uL Lymph # (Auto) (1.2-3.4) K/uL [place] # (Auto) (0.11-0.59) K/uL Eos # (Auto) (0-0.5) K/uL Baso # (Auto) (0-0.2) K/uL Immature Gran # (Auto) (0.00-0.02) K/uL PT (9.0-12.0) Seconds INR (0.9-1.1) APTT (21.0-31.0) Seconds PTT Ratio ABG pH Cancelled ABG pCO2 Cancelled ABG pO2 Cancelled ABG HCO3 Cancelled ABG O2 Saturation Cancelled ABG Base Excess Cancelled Vernon Test Cancelled VBG pH (7.36-7.41) VBG pCO2 (38-50) mmHg VBG pO2 mmHg VBG HCO3 mmol/L VBG O2 Saturation % VBG Base Excess mEq/L Barometric Pressure Cancelled mm/Hg Oxygen Given Cancelled Sodium (136-145) mmol/L Potassium (3.5-5.1) mmol/L Chloride (98-107) mmol/L Carbon Dioxide (21-32) mmol/L Anion Gap (3-11) BUN (6-23) mg/dl Creatinine (0.6-1.4) mg/dl Est Cr Clr Drug Dosing ml/min Est GFR ( Amer) ml/min Est GFR (Non-Af Amer) ml/min BUN/Creatinine Ratio (10-20) Glucose (70-99(Fasting)) mg/dl Lactate (0.4-2.0) mmol/L Calcium (8.5-10.1) mg/dl Magnesium (1.7-2.4) mg/dl Total Bilirubin (0.2-1.0) mg/dl AST (13-39) U/L ALT (7-52) U/L Alkaline Phosphatase (34-104) U/L Ammonia (18-72) umol/L Troponin I High Sens (0-20) pg/ml Total Protein (6.0-8.3) gm/dl Albumin (3.4-5.0) gm/dl Globulin (2.5-4.0) gm/dl Albumin/Globulin Ratio (0.9-2) Procalcitonin (0-0.5) ng/ml Valproic Acid (50-100) mcg/ml Adenovirus (PCR) (NotDetected) B. pertussis DNA (PCR) (NotDetected) B.parapertussis DNA PCR (NotDetected) C. pneumoniae DNA (PCR) (NotDetected) Coronavirus OC43 (PCR) (NotDetected) Coronavirus HKU1 (PCR) (NotDetected) Coronavirus 229E (PCR) (NotDetected) SARS-CoV-2 (PCR) (NotDetected) Coronavirus NL63 (PCR) (NotDetected) Human Metapneumovir PCR (NotDetected) Influenza Type A (PCR) (NotDetected) Influenza Type B (PCR) (NotDetected) M. pneumoniae (PCR) (NotDetected) Parainfluenza 1 (PCR) (NotDetected) Parainfluenza 2 (PCR) (NotDetected) Parainfluenza 3 (PCR) (NotDetected) Parainfluenza 4 (PCR) (NotDetected) RSV (PCR) (NotDetected) Entero/Rhino (PCR) (NotDetected) Administered Medications Discontinued Medications Acetaminophen (Acetaminophen 1000 Mg/100 Ml Iv) 1,000 mg IV ONE ONE Stop: 03/16/22 19:06 Last Admin: 03/16/22 19:15 Dose: 1,000 mg Documented by: [id number] Dexamethasone Sodium Phosphate (DexamethasonePf 10 Mg/Ml Vial) 10 mg IV NOW ONE Stop: 03/16/22 17:21 Last Admin: 03/16/22 18:26 Dose: 10 mg Documented by: [id number] Piperacillin Sod/Tazobactam Sod (Zosyn) 4.5 gm in 120 mls @ 240 mls/hr IV NOW ONE Stop: 03/16/22 17:49 Last Infusion: 03/16/22 19:22 Dose: 0 mls/hr Documented by: [id number] Admin: 03/16/22 18:29 Dose: 240 mls/hr Documented by: [id number] Sodium Chloride (Nss) 500 mls @ 999 mls/hr IV .Q31M ONE Stop: 03/16/22 19:35 Last Infusion: 03/16/22 20:04 Dose: 0 mls/hr Documented by: [id number] Admin: 03/16/22 19:15 Dose: 999 mls/hr Documented by: [id number] Imaging Data Radiologist's Impression: Chest X-Ray 03/16/22 17:20 XR chest 1V portable CLINICAL HISTORY: SEPSIS TECHNIQUE: Single frontal radiograph of the chest was obtained. Comparison: Comparison is made to chest one view 01/25/2022 FINDINGS: No lines and tubes are seen. Cardiomegaly is noted. There are small bilateral pleural effusions. Airspace opacities are seen in the right midlung. IMPRESSION: Airspace opacities are in the right midlung which may represent atelectasis, pneumonia, and/or aspiration. ACT 112: Negative or not required by law. Electronically signed by: Jose Luis Causey M.D. 03/16/2022 6:05 PM Discharge Plan Visit Data Chief Complaint: Shortness of Breath/Dyspnea ED Provider: Bonilla Chaparro Discharge Problem: Pneumonia, Encephalopathy, Acute on chronic respiratory failure with hypoxia and hypercapnia, Acute exacerbation of chronic obstructive airways disease, Acute respiratory acidosis Patient Disposition: Being Evaluated by Hospitalist Forms Stand Alone Forms: My [facility] Prescriptions Prescriptions: No Action ipratropium-albuterol 0.5 mg-3 mg(2.5 mg base)/3 mL Solution For Nebulization 3 ml INHALATION Q6H RF: 0 terazosin 2 mg capsule 2 mg PO QAM RF: 0 diclofenac sodium [Voltaren Arthritis Pain] 1 % gel 4 g EXT TID RF: 0 atorvastatin 40 mg Tablet 40 mg PO HS RF: 0 divalproex 250 mg Tablet,Delayed Release (Dr/Ec) 250 mg PO BID RF: 0 aspirin 81 mg Tablet,Chewable 81 mg PO QAM RF: 0 cholecalciferol (vitamin D3) 25 mcg (1,000 unit) Tablet 25 mcg PO QAM RF: 0 acetazolamide 500 mg Capsule, Extended Release 500 mg PO QAM RF: 0 Lactobacillus acidophilus Capsule 0 mmu cells PO QAM Qty: 0 RF: 0 quetiapine [Seroquel] 50 mg Tablet 50 mg PO BID RF: 0 pediatric multivitamin Tablet,Chewable 1 tab PO QAM RF: 0 potassium chloride 20 mEq Tablet Extended Release 20 meq PO TIDM RF: 0 metoprolol tartrate 25 mg Tablet 12.5 mg PO BID RF: 0 acetaminophen 325 mg Tablet 650 mg PO Q4 MDD 3g PRN (Reason: Fever Or Pain) RF: 0 Humulin R Regular U-100 Insuln 100 unit/mL Solution 1 sliding scale dose SUBCUT ACHS RF: 0 furosemide 20 mg Tablet 20 mg PO QAM Qty: 30 RF: 0 sertraline 50 mg Tablet 50 mg PO QAM Qty: 30 RF: 0 Referrals Referrals: [facility], [Primary Care Provider] -
[2022-03-16 17:55] LABS: INR 1.1 (0.9-1.1); Partial Thromboplastin Ratio 1.2; Partial Thromboplastin Time 33.2 Seconds (21.0-31.0); Prothrombin Time 12.1 Seconds (9.0-12.0)
--- NOTE | 2022-03-16 18:06 | XRay Report ---
XR chest 1V portable CLINICAL HISTORY: SEPSIS TECHNIQUE: Single frontal radiograph of the chest was obtained. Comparison: Comparison is made to chest one view 01/25/2022 FINDINGS: No lines and tubes are seen. Cardiomegaly is noted. There are small bilateral pleural effusions. Airs pace opacities are seen in the right midlung. IMPRESSION: Airspace opacities are in the right midlung which may represent atelectasis, pneumonia, and/or aspira tion. ACT 112: Negative or not required by law. Electronically signed by: Jose Luis Causey M.D. 03/16/2022 6:05 PM
[2022-03-16 18:07] LABS: Basophils # (auto) 0.01 K/uL (0-0.2); Basophils % (auto) 0.1 %; Eosinophils # (auto) 0.01 K/uL (0-0.5); Eosinophils % (auto) 0.1 %; Hematocrit (blood only) 36.6 % (42-52); Hemoglobin 10.3 g/dL (14.0-18.0); Immature Granulocytes # (auto) 0.09 K/uL (0.00-0.02); Immature Granulocytes % (auto) 0.5 %; Lymphocytes # (auto) 0.89 K/uL (1.2-3.4); Lymphocytes % (auto) 4.9 %; Mean Corpuscular Hemoglobin 26.8 pg (25-34); Mean Corpuscular Hgb Conc 28.1 g/dL (32-36); Mean Corpuscular Volume 95.3 fL (80-100); Mean Platelet Volume 10.9 fL (7.4-10.4); Monocytes # (auto) 0.88 K/uL (0.11-0.59); Monocytes % (auto) 4.8 %; Neutrophils # (auto) 16.42 K/uL (1.4-6.5); Neutrophils % (auto) 89.6 %; Platelet Count 214 K/uL (130-400); RDW Coefficient of Variation 16.5 % (11.5-14.5); RDW Standard Deviation 58.4 fL (36.4-46.3); Red Blood Count 3.84 M/uL (4.7-6.1)
[2022-03-16 18:11] LABS: Troponin I High Sensitivity 6.7 pg/ml (0-20)
[2022-03-16 18:16] LABS: Albumin Globulin Ratio 0.9 (0.9-2); Albumin Level 3.4 gm/dl (3.4-5.0); Bilirubin,Total 0.4 mg/dl (0.2-1.0); Calcium 9.3 mg/dl (8.5-10.1); Est GFR (African American) 128.2 ml/min; Est GFR (Non-African American) 110.6 ml/min; Magnesium 1.8 mg/dl (1.7-2.4); Potassium 4.1 mmol/L (3.5-5.1); Total Protein 7.4 gm/dl (6.0-8.3)
[2022-03-16 18:45] LABS: Base Excess VBG 11.3 mEq/L; Oxygen Saturation VBG 74.2 %; pH VBG 7.28 (7.36-7.41)
[2022-03-16] MEDS ORDERED: ACETAMINOPHEN 1000 MG/100 ML IV IV ONE (19:05)
[2022-03-16] MEDS ORDERED: SODIUM CHLORIDE 0.9% 500 ML IV ONE (19:05)
--- NOTE | 2022-03-16 19:49 | History & Physical Report ---
Date of Service March 16, 2022 Assessment & Plan (1) Pneumonia: (2) AMBERLY (obstructive sleep apnea): (3) Acute on chronic respiratory failure with hypoxia and hypercapnia: (4) CHF (congestive heart failure): (5) Anxiety and depression: (6) Sepsis: (7) HLD (hyperlipidemia): (8) HTN (hypertension): (9) Diabetes: Plan: 71 yo M PMHx significant for chronic hypoxic hypercapnic respiratory failure (on 7LNC during the day with BiPAP at night), AMBERLY/obesity hypoventilation syndrome, CHF, anxiety and depression, hypertension, DM2 admitted for acute on chronic respiratory failure and sepsis secondary to aspiration pneumonia. Acute on chronic hypoxic and hypercapnic respiratory failure: Presented to the ER with tachypnea and respiratory muscle retractions requiring increased respiratory support. Patient was put on oxygen mask with improvement in respirations and mental status. Multifactorial causes suspected with element of fluid overload, aspiration pneumonia, chronic low reserve due to AMBERLY/OHS. ABG 7.27/81/91/37; fairly consistent with his chronic hypercapnia. Admission lab work with leukocytosis with left shift; CXR with evidence of right lower lobe pneumonia consistent with aspiration. Continue oxygen support with goal O2 of 88-92% with BiPAP at night as previously recommended by Pulmonology. DuoNebs every 6 hours scheduled and every 2 hours as needed for shortness of breath/wheezing. Will increase furosemide from 20 mg p.o. daily to 20 mg IV daily while admitted for elements of fluid overload. Will treat for aspiration pneumonia with Zosyn; await blood cultures. Echo ordered to be performed in the morning to evaluate degree of CHF. Sepsis 2/2 aspiration pneumonia: Treatment of pneumonia as described above. Daily CBC. MRSA nares pending. Decubitus ulcer: Patient's disclosed that patient has been dealing with buttock wound in the recent past. Noted to have stage II pressure ulcer on exam. We will start vancomycin and have patient evaluated by wound care while admitted. CHF: History of on chart however do not have Echocardiogram in recent past. Patient is chronically on Lasix 20 mg p.o. daily. Will increase at this time to 20 mg IV daily with serial BMP given evidence of fluid overload on exam. Hx seizure disorder: Continue divalproex 250mg BID. May need to consider other method of seizure prophylaxis if patient has extended obtundation. Dose adjust based on Depakote level. DM2: Basal/bolus insulin while admitted. DM2 diet. Anxiety, depression: Continue Seroquel and sertraline. HLD: Continue atorvastatin 40mg daily. Code Status: FULL CODE FEN: DM2, low sodium DVT ppx: Lovenox BID Dispo: Telemetry History of Present Illness Chief Complaint: Dyspnea, cough, fever Primary Care Provider: Roni 71-year-old male past medical history significant for chronic hypoxic hypercapnic respiratory failure (on 7 LNC during the day with BiPAP at night), AMBERLY/obesity hypoventilation syndrome, CHF, anxiety and depression, hypertension, DM2 presented to the ER from her side for several days of malaise and fevers with worsening of shortness of breath. BiPAP was attempted prior to arrival but patient was not tolerating at that time and was therefore placed on a nonrebreather with improvement in his respiratory status. ABG with pH 7.27/PCO2 81/PO2 91/HCO3 37. CXR and lung exam suggestive of multifactorial elements of RLL aspiration pneumonia and pulmonary vascular congestion. Blood cultures were collected and patient was placed on Zosyn for aspiration pneumonia. Patient was also given dexamethasone 10 mg IV x1. Hospitalist service was consulted for admission for respiratory failure and sepsis. Allergies Allergy/AdvReac Type Severity Reaction Status Date / Time ketorolac [From Toradol] Allergy Unknown Unknown Verified 03/16/22 20:26 Home Medications Medication Instructions Recorded Confirmed Type Lactobacillus acidophilus 0 mmu cells PO QAM #0 07/31/21 03/16/22 History acetaminophen 325 mg tablet 650 mg PO Q4 PRN MDD 3g 07/31/21 03/16/22 History acetazolamide 500 mg 500 mg PO QAM 07/31/21 03/16/22 History capsule,extended release aspirin 81 mg chewable tablet 81 mg PO QAM 07/31/21 03/16/22 History atorvastatin 40 mg tablet 40 mg PO HS 07/31/21 03/16/22 History cholecalciferol (vitamin D3) 25 25 mcg PO QAM 07/31/21 03/16/22 History mcg (1,000 unit) tablet divalproex 250 mg tablet,delayed 250 mg PO BID 07/31/21 03/16/22 History release insulin regular human 100 unit/mL 1 sliding scale dose SUBCUT ACHS 07/31/21 03/16/22 History injection solution (Humulin R Regular U-100 Insulin) metoprolol tartrate 25 mg tablet 12.5 mg PO BID 07/31/21 03/16/22 History pediatric multivitamin 1 tab PO QAM 07/31/21 03/16/22 History potassium chloride 20 mEq 20 meq PO TIDM 07/31/21 03/16/22 History tablet,extended release quetiapine 50 mg tablet (Seroquel) 50 mg PO BID 07/31/21 03/16/22 History furosemide 20 mg tablet 20 mg PO QAM #30 tab 08/19/21 03/16/22 Rx ipratropium 0.5 mg-albuterol 3 mg 3 ml INHALATION Q6H 01/15/22 03/16/22 History (2.5 mg base)/3 mL nebulization soln terazosin 2 mg capsule 2 mg PO QAM 01/15/22 03/16/22 History sertraline 50 mg tablet 50 mg PO QAM #30 tab 01/29/22 03/16/22 Rx diclofenac sodium 1 % topical gel 4 g EXT TID 03/16/22 03/16/22 History (Voltaren Arthritis Pain) Past Med/Surg History Medical History Aspiration pneumonia of right lower lobe CHF (congestive heart failure) Dementia Diabetes HLD (hyperlipidemia) HTN (hypertension) Hydronephrosis of right kidney No pertinent family history Obesity Obstructive lung disease Right lower lobe pneumonia Smoker Weakness Surgical History No pertinent past surgical history Social History Smoking Status: Former smoker Second Hand Exposure: No; Hx Alcohol Use: No Hx Substance Use: No Preferred Language: Bangladeshi Communication Ability: Effective 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 Beliefs That Will Affect Care: None marital status: Current Living Situation: Correction How many Children do You have: 2 Feels Safe at Home: Yes Safety Concerns: Feels Safe At This Time Assistive Devices: BiPap, Oxygen - Continuous and Walker Review of Systems Review of Systems: All systems reviewed & are unremarkable except as noted in HPI & below Constitutional: + fever, + chills and + malaise Respiratory: + cough and + dyspnea Cardiovascular: + edema; no chest pain and no palpitations Gastrointestinal: no abdominal pain, no constipation and no diarrhea/loose stools Physical Exam Constitutional: WD/WN, vitals as above Eyes: PERRL, conjunctivae normal, anicteric sclerae ENMT: external ear and nose normal, oropharynx normal Neck: normal visual inspection Respiratory: Poor respiratory effort, crackles throughout lungs with decreased breath sounds in right lower lung field Cardiovascular: Regular rhythm, tachycardic, no murmurs Pitting edema 2+ up to directly above the knees bilaterally Gastrointestinal (Abdomen): normal bowel sounds, soft, nontender, no hepatosplenomegaly Musculoskeletal: no cyanosis or clubbing, extremities motor strength 5/5 Skin: Patient's skin warm and sweaty Medial buttock with stage II pressure ulcer Neurologic: Normal speech. Bilateral upper and lower extremities, face without focal deficits. Psychiatric: A+Ox3, euthymic affect Results & Data Results & Data ([facility]) Vital Signs (Past 12 Hours) Vital Signs Temp Pulse Pulse Resp BP Pulse Ox 03/16/22 19:45 36.7 C 121 H 35 H 94 03/16/22 19:30 121 H 33 H 153/88 H 92 03/16/22 19:00 128 H 28 H 131/76 97 03/16/22 18:30 129 H 28 H 121/75 94 03/16/22 18:00 132 H 28 H 98 03/16/22 17:30 131 H 28 H 98 03/16/22 17:15 98 03/16/22 17:06 38.8 C H 130 H 22 98 Supervising Physician Co-Signing Physician Notes Attending addendum: I have physically seen this patient, have supervised the medical residents activities, and agree with the H&P unless as otherwise noted. Assessment and Plan: Acute on chronic respiratory failure with hypoxia and hypercapnia/aspiration pneumonia- Duonebs every 4 hours while awake and every 2 hours when necessary. Zosyn 4.5 g IV every 8 hours Methylprednisolone 40 mg IV every 8 hours. Did receive dexamethasone 10 mg IV from the ED Oxygenation improved on oxygen mask, Will need BiPAP for nighttime Pulse ox goal 88-92% CHF- Hold oral Lasix Lasix 20 mg IV every morning Follow serial BMP and magnesium levels Diabetes mellitus- Insulin as noted Placed on Accu-Cheks before meals and at bedtime with NovoLog coverage per scale Remaining orders and notations as noted Resident Activity Tracking Resident Involvement: Resident Care Provided Care Provided: Adult Hospital Medicine (1) Pneumonia Laterality: right Lung location: unspecified part of lung Pneumonia type: due to unspecified organism Qualified Code(s): J18.9 - Pneumonia, unspecified organism
[2022-03-16 20:25] LABS: Adenovirus PCR Not Detected (NotDetected); Bordetella parapertussis PCR Not Detected (NotDetected); Bordetella pertussis PCR Not Detected (NotDetected); Chlamydia pneumoniae PCR Not Detected (NotDetected); Coronavirus 229E PCR Not Detected (NotDetected); Coronavirus CoV-2 (COVID19)PCR Not Detected (NotDetected); Coronavirus HKU1 PCR Not Detected (NotDetected); Coronavirus NL63 PCR Not Detected (NotDetected); Coronavirus OC43PCR Not Detected (NotDetected); Human Metapneumovirus PCR Not Detected (NotDetected); Influenza A PCR Not Detected (NotDetected); Influenza B PCR Not Detected (NotDetected); Mycoplasma pneumoniae PCR Not Detected (NotDetected); Parainfluenza Virus 1 PCR Not Detected (NotDetected); Parainfluenza Virus 2 PCR Not Detected (NotDetected); Parainfluenza Virus 3 PCR Not Detected (NotDetected); Parainfluenza Virus 4 PCR Not Detected (NotDetected); Respiratory Syncytial VirusPCR Not Detected (NotDetected); Rhinovirus/Enterovirus PCR Not Detected (NotDetected)
[2022-03-16] MEDS ORDERED: ALBUT/IPRATROP 3MG/0.5MG NEB 3 ML VIAL NEB PRN (20:54)
[2022-03-16 21:21] LABS: Base Excess ABG 7.6 mEq/L (-9-1.8); HCO3 ABG 37 mmol/L (19-24); Oxygen Saturation ABG 95.9 % (90-95); PCO2 ABG 81 mmHg (35-46); PO2 ABG 91 mmHg (80-95); pH ABG 7.27 (7.35-7.45)
[2022-03-16 21:24] LABS: Allen Test Pos (Pos)
[2022-03-16] MEDS ORDERED: FUROSEMIDE INJ 20 MG/2 ML VIAL IV ONE (21:46)
[2022-03-16] MEDS ORDERED: ONDANSETRON INJ 2 MG/ML 2 ML VIAL IV PRN (22:22)
[2022-03-16] MEDS ORDERED: CARBOHYDRATES FOR HYPOGLYCEMIA PO PRN (22:22)
[2022-03-16] MEDS ORDERED: DEXTROSE 50% 50 ML SYRINGE IV PRN (22:22)
[2022-03-16] MEDS ORDERED: ACETAMINOPHEN 325 MG TAB PO PRN (22:22)
[2022-03-16] MEDS ORDERED: VANCOMYCIN CONSULT ACTIVE PRN (22:22)
[2022-03-16] MEDS ORDERED: GLUCAGON FOR INJ 1 MG VIAL SQ PRN (22:22)
[2022-03-16] MEDS ORDERED: GLUCOSE 40% GEL 15 GM TUBE PO PRN (22:22)
[2022-03-16] MEDS ORDERED: GLUCOSE 10 TABS/TUBE PO PRN (22:22)
[2022-03-16] MEDS ORDERED: VANCOMYCIN HCL 2,500 MG in SODIUM CHLORIDE 0.9% 500 ML IV ONE (23:00)
[2022-03-16] MEDS: ENOXAPARIN INJ 40 MG/0.4 ML SYR SQ SCH (23:05)
[2022-03-16] MEDS: INSULIN ASPART PER UNIT SC SCH (23:06)
[2022-03-17] MEDS ORDERED: PIPERACILLIN/TAZOBACTAM 4.5 GM in DEXTROSE 5% 100 ML IV SCH
[2022-03-17] MEDS: ALBUT/IPRATROP 3MG/0.5MG NEB 3 ML VIAL NEB SCH ×4 (00:37→19:13)
[2022-03-17 00:38] LABS: Appearance Urine Cloudy (Clear); Bilirubin Urine Negative (Negative); Blood Urine 2+ (Negative); Color Urine Yellow; Glucose Urine UA Negative (Negative); Ketones Urine Negative (Negative); Leukocyte Esterase Urine 3+ (Negative); Nitrite Urine Negative (Negative); Specific Gravity Urine 1.017 (1.000-1.030); Urobilinogen Urine Negative (Negative); WBC Urine Automated >30 /hpf (0-5); pH Urine 7.5 (4.5-7.5)
[2022-03-17 00:39] LABS: Protein Urine Trace (Negative)
[2022-03-17 01:43] LABS: Calcium Oxalate Crystals Urine Present (None Prsent); Mucus Urine Present (None Prsent)
[2022-03-17 01:46] LABS: Bacteria Urine Automated 2+ (Negative)
[2022-03-17] MEDS: METOPROLOL TARTRATE 25 MG TAB PO SCH ×3 (04:01→22:04)
[2022-03-17] MEDS: DIVALPROEX DELAY RELEASE 250 MG TABEC PO SCH ×3 (04:01→22:03)
[2022-03-17] MEDS: QUEtiapine FUMARATE 25 MG TABLET PO SCH ×3 (04:02→22:04)
[2022-03-17] MEDS ORDERED: VANCOMYCIN HCL 1,500 MG in SODIUM CHLORIDE 0.9% 500 ML IV SCH (06:00)
[2022-03-17 07:46] LABS: BUN Creatinine Ratio 31.6 (10-20); Calcium 9.5 mg/dl (8.5-10.1); Creatinine Clr Calc Pharmacy 165.4 ml/min; Est GFR (African American) 121.4 ml/min; Est GFR (Non-African American) 104.8 ml/min
[2022-03-17 08:00] LABS: Basophils # (auto) 0.01 K/uL (0-0.2); Basophils % (auto) 0.1 %; Hematocrit (blood only) 36.7 % (42-52); Immature Granulocytes # (auto) 0.07 K/uL (0.00-0.02); Immature Granulocytes % (auto) 0.4 %; Lymphocytes # (auto) 0.76 K/uL (1.2-3.4); Lymphocytes % (auto) 3.9 %; Mean Corpuscular Hgb Conc 27.2 g/dL (32-36); Mean Corpuscular Volume 99.2 fL (80-100); Mean Platelet Volume 11.7 fL (7.4-10.4); Monocytes # (auto) 0.68 K/uL (0.11-0.59); Monocytes % (auto) 3.5 %; Neutrophils # (auto) 17.78 K/uL (1.4-6.5); Neutrophils % (auto) 92.1 %; Platelet Count 183 K/uL (130-400); RDW Coefficient of Variation 16.8 % (11.5-14.5); RDW Standard Deviation 61.4 fL (36.4-46.3)
[2022-03-17] MEDS: AMPICILLIN/SULBACTAM SOD 1,500 MG in 0.9 % SODIUM CHLORIDE 100 ML IV SCH ×3 (08:38→20:56)
[2022-03-17] MEDS: INSULIN ASPART PER UNIT SC SCH ×4 (08:52→22:04)
[2022-03-17] MEDS: INSULIN GLARGINE SOLOSTAR 100 UNITS/ML 3 ML PEN SC SCH ×2 (08:55→22:09)
[2022-03-17] MEDS: FUROSEMIDE 40 MG/4 ML VIAL IV SCH (08:57)
[2022-03-17] MEDS: ENOXAPARIN INJ 40 MG/0.4 ML SYR SQ SCH ×2 (08:58→20:58)
[2022-03-17] MEDS: DICLOFENAC SOD 1% GEL 100 GM TUBE EXT SCH ×3 (09:07→22:03)
[2022-03-17] MEDS: AZITHROMYCIN 500 MG in DEXTROSE 5% 250 ML IV SCH (09:42)
[2022-03-17] MEDS: SERTRALINE HCL 50 MG TABLET PO SCH (10:05)
[2022-03-17] MEDS: POTASSIUM CHLORIDE CRTAB 20 MEQ TABCR PO SCH ×3 (10:05→16:57)
[2022-03-17] MEDS: ASPIRIN 81 MG CHEW PO SCH (10:05)
[2022-03-17] MEDS: TERAZOSIN HCL 1 MG CAP PO SCH (10:06)
--- NOTE | 2022-03-17 10:44 | Hospitalist Progress Note ---
Date of Service March 17, 2022 Assessment & Plan (1) Acute on chronic respiratory failure with hypoxia and hypercapnia: Plan: Mr. Harvey is a 71 yo gentleman with a PMHx of chronic respiratory failure with hypoxia and hypercapnia due to underlying COPD, AMBERLY and OHS, brought in for acute dyspnea and malaise. - blood gas on admission pH 7.27, bicarb 39, PCO2 81. Similar to previous admissions - CXR showing evidence of multifocal PNA + pulmonary vascular congestion - etiology likely multifactorial due to pulmonary congestion, PNA and subsequent COPD exacerbation - baseline O2 requirement of 7L via NC during the day, BiPAP at night. - Provide additional O2 and ventilatory support with goal O2 sat 88-92% (2) Sepsis: Plan: - SIRS met on admission - source: aspiration PNA noted on CXR - UA contaminated. Urine culture pending - blood cultures pending - respiratory biofire negative - no evidence of cellulitis or diarrhea - WBC 19 with neutrophil predom. Trend CBC - proc not elevated - Lactate not elevated, favorable prognostic indicator - Zosyn deescalated to Unasyn (anaerobic coverage). Vancomycin d/bree as nasal MRSA swab negative. Azithromycin added for concurrent COPD exacerbation (3) Pneumonia: Plan: - treatment as above - aspiration precautions (4) COPD (chronic obstructive pulmonary disease): Plan: - likely in exacerbation due to PNA - Azithromycin 500mg IV for 3 days - Solu-medrol 40mg IV today --> taper steroids as tolerated - continue home anoro inhaler - DuoNebs every 6 hours scheduled and every 2 hours as needed for shortness of breath/wheezing. (5) AMBERLY (obstructive sleep apnea): Plan: - chronic - on BiPAP qhs (6) CHF (congestive heart failure): Plan: - pulm vasc congestion noted on CXR - ECHO ordered on admission, read pending - home lasix regimen is 20mg PO daily --> changed to 20 IV daily. Trend BMP (7) Anxiety and depression: Plan: - Continue Seroquel and sertraline (8) HLD (hyperlipidemia): Plan: - Continue atorvastatin 40mg daily. (9) HTN (hypertension): Plan: - continue home dose metoprolol (with low threshold to place on hold if he becomes hypotensive) (10) Diabetes: Plan: - Basal/bolus insulin while admitted. - DM2 diet - on high intensity statin + ASA (11) Seizure disorder: Plan: - Continue divalproex 250mg BID (12) Decubitus ulcer: Plan: - stage II pressure ulcer noted on exam - wound nurse consulted Plan: Code Status: FULL CODE FEN: DM2, low sodium DVT ppx: Lovenox BID Dispo: Telemetry Admission and Anticipated Discharge Date Admission Date: March 16, 2022 Supervising Physician Co-Signing Physician Notes I personally examined the patient and verified all goldstein points of history and exam, discussed case, and agree with decision making with Dr Sena. Awake. No shortness of breath. present at the bedsideseems like he is close to his baseline mentation. She notes that he has had recurrent aspiration pneumonias, and generally chooses permissive aspiration at this point. Vitals noted, in general he is awake and alert not really able to answer orientation questions, but appears in no distress. HEENT normocephalic atraumatic mucous membranes moist. Lungs show faint rales at base right no other rales rhonchi or wheezesalthough fairly diminished air entry throughout good effort no accessory muscle use Aspiration pneumonia with COPD/hypoventilation exacerbationantibiotics, supportive care, steroids, follow hypercapniaalthough clinically does seem to be improvingVBG pending for this afternoon. Otherwise as above Subjective Patient was drowsy - arousable but not able to converse Review of Systems Review of Systems: All systems reviewed & are unremarkable except as noted in HPI & below Physical Exam Constitutional: WD/WN, vitals as above + obese and + lethargic On BIPAP Eyes: + anicteric sclerae ENMT: external ear and nose normal, oropharynx normal Neck: normal visual inspection and trachea midline Respiratory: Auscultation: + rhonchi (diffuse) Cardiovascular: RRR, no murmur, no edema Heart Sounds: normal S1 and normal S2 Gastrointestinal (Abdomen): normal bowel sounds, soft, nontender, no hepatosplenomegaly Musculoskeletal: Head/Neck/Chest: normocephalic and head atraumatic Skin: no rashes, warm and dry Genitourinary: Valerio catheter in place, draining yellow urine without visible blood clots Results & Data Results & Data ([facility]) Vital Signs (Past 12 Hours) Vital Signs Temp Pulse Pulse Resp BP Pulse Ox 03/17/22 07:42 94 H 91 H 24 94 03/17/22 07:23 36.6 C 94 H 20 132/73 99 03/17/22 03:46 36.7 C 25 H 110/66 96 03/17/22 02:49 91 H 23 95 03/17/22 01:00 25 H 97 03/17/22 00:38 99 H 99 H 25 H 98 03/17/22 00:30 28 H 94 03/17/22 00:00 31 H 91 03/16/22 23:30 32 H 96 03/16/22 23:00 36 H 95 Resident Activity Tracking Resident Involvement: Resident Care Provided Care Provided: Adult Hospital Medicine (1) Pneumonia Laterality: right Lung location: unspecified part of lung Pneumonia type: due to unspecified organism Qualified Code(s): J18.9 - Pneumonia, unspecified organism
--- NOTE | 2022-03-17 15:22 | XCELERA ---
[id number]
--- NOTE | 2022-03-17 16:44 | Billing Data ---
Date of Service March 17, 2022 Coding Level of Care Code 56323 Subseq Hosp Care Lvl 3
--- NOTE | 2022-03-17 16:44 | Billing Data ---
Date of Service March 17, 2022 Coding Level of Care Code 40874 Subseq Hosp Care Lvl 3
[2022-03-17 17:16] LABS: Base Excess VBG 11.4 mEq/L; HCO3 VBG 42 mmol/L; PCO2 VBG 91 mmHg (38-50); PO2 VBG 24 mmHg; pH VBG 7.28 (7.36-7.41)
[2022-03-17 17:49] LABS: Oxygen Saturation VBG < 60.0 %
--- NOTE | 2022-03-17 21:47 | Electrocardiogram Report ---
Test Reason : Blood Pressure : / mmHG Vent. Rate : 130 BPM Atrial Rate : 130 BPM P-R Int : 200 ms QRS Dur : 080 ms QT Int : 246 ms P-R-T Axes : 060 095 043 degrees QTc Int : 362 ms Poor data quality, interpretation may be adversely affected Sinus tachycardia Rightward axis Low voltage QRS Borderline ECG When compared with ECG of 23-JAN-2022 05:14, No significant change Confirmed by Bladimir Mcduffie ([id number]) on 03/17/2022 9:46:56 PM Referred By: [facility] Confirmed By:Bladimir Mcduffie
[2022-03-17] MEDS: ATORVASTATIN 40 MG TAB PO SCH (22:03)
[2022-03-18] MEDS: ALBUT/IPRATROP 3MG/0.5MG NEB 3 ML VIAL NEB SCH ×4 (00:13→19:28)
[2022-03-18] MEDS: AMPICILLIN/SULBACTAM SOD 1,500 MG in 0.9 % SODIUM CHLORIDE 100 ML IV SCH ×4 (02:38→20:41)
--- NOTE | 2022-03-18 05:04 | Billing Data ---
Date of Service March 18, 2022 Coding Level of Care Code 30219 Initial Inpt Care Lvl 3
--- NOTE | 2022-03-18 07:02 | Hospitalist Progress Note ---
Date of Service March 18, 2022 Assessment & Plan (1) Acute on chronic respiratory failure with hypoxia and hypercapnia: Plan: Mr. Harvey is a 71 yo gentleman with a PMHx of chronic respiratory failure with hypoxia and hypercapnia due to underlying COPD, AMBERLY and OHS, brought in for acute dyspnea and malaise. Acute on Chronic Respiratory Failure with Hypoxia and Hypercapnia secondary to Aspiration PNA - blood gas on admission pH 7.27, bicarb 39, PCO2 81. Similar to previous admissions - CXR showing evidence of multifocal PNA + pulmonary vascular congestion - etiology likely multifactorial due to pulmonary congestion, PNA and subsequent COPD exacerbation - baseline O2 requirement of 7L via NC during the day, BiPAP at night. - Provide additional O2 and ventilatory support with goal O2 sat 88-92% - Continue Unasyn and Azithromycin - Home O2 requirements 7L NC, currently on 30L High Flow Anemia -Hgb ~10 baseline -Drop overnight to Hgb 8.4 -FOBT ordered -Continue to monitor for any signs of bleeding L Knee pain -Secondary to fall per patient during admission -Pain notable on lateral L knee, no obvious deformity -Knee XR negative for acute fracture or dislocation -Voltaren gel PRN for pain Chronic Aspiration -Precautions for upright seating in addition to mouth care ACHS -No oral intake if SOB or any notable signs/symptoms of respiratory failure Sepsis - SIRS met on admission - source: aspiration PNA noted on CXR - UA contaminated. Urine culture pending - blood cultures pending - respiratory biofire negative - no evidence of cellulitis or diarrhea - WBC 19 with neutrophil predom. Trend CBC - proc not elevated - Lactate not elevated, favorable prognostic indicator - Zosyn deescalated to Unasyn (anaerobic coverage). Vancomycin d/bree as nasal MRSA swab negative. Azithromycin added for concurrent COPD exacerbation COPD - likely in exacerbation due to PNA - Azithromycin 500mg IV for 3 days - Has not required steroids as of yet, continue to monitor for any worsening of status - continue home anoro inhaler - DuoNebs every 6 hours scheduled and every 2 hours as needed for shortness of breath/wheezing. AMBERLY -chronic - on BiPAP qhs Pulmonary Vascular Congestion -Echo noticeable for EF 60-65% with normal left ventricular size and systolic function -Home lasix regiment 20mg PO QD -- increased to 20mg IV QD Anxiety/Depression - Continue Seroquel and sertraline HLD - Continue atorvastatin 40mg daily. HTN - continue home dose metoprolol (with low threshold to place on hold if he becomes hypotensive) DM2 - Basal/bolus insulin while admitted. - DM2 diet - on high intensity statin + ASA Seizure Disorder - Continue divalproex 250mg BID Decubitus Ulcer - stage II pressure ulcer noted on exam - wound nurse consulted Code Status: FULL CODE FEN: DM2, low sodium DVT ppx: Lovenox BID Dispo: Telemetry -- PT/OT ordered (2) Sepsis: (3) Pneumonia: (4) COPD (chronic obstructive pulmonary disease): (5) AMBERLY (obstructive sleep apnea): (6) CHF (congestive heart failure): (7) Anxiety and depression: (8) HLD (hyperlipidemia): (9) HTN (hypertension): (10) Diabetes: (11) Seizure disorder: (12) Decubitus ulcer: Admission and Anticipated Discharge Date Admission Date: March 16, 2022 Supervising Physician Co-Signing Physician Notes I personally examined the patient and verified all goldstein points of history and e xam, discussed case, and agree with decision making with Dr Madsen feeling better breathing feels reasonably OK wonders about leaving the hospital. notes to me that he's on chronic 3L O2 Vitals noted, in general he is awake and alert not really able to answer orientation questions, but appears in no distress. HEENT normocephalic atraumatic mucous membranes moist. breathing/lungs better air entry than yesterday no r/r/w good effort no accessory muscles Aspiration pneumonia with COPD/hypoventilation exacerbationantibiotics, supportive care, improving overall. likely return to SNF once required FiO2 is lower/more manageable in that setting Subjective Patient evaluated at the bedside this morning. Patient awake and conversational. He notes that he does still feel fairly weak, however, improved and questioning when he could go home. He does not feel short of breath while on high flow cannula. He notes that he utilizes 7L O2 by nasal cannula at home. He also notes pain in his lateral L knee which he states was secondary to a fall he sustained on admission. He is interested in regards to eating and drinking. He denies any current fever, chills, SOB, chest pain, chest pressure, abdominal pain. Review of Systems Review of Systems: All systems reviewed & are unremarkable except as noted in Subjective Physical Exam Constitutional: + ill appearing, + morbidly obese and cooperative; no acute distress, not combative, not diaphoretic and not lethargic Eyes: PERRL, conjunctivae normal, anicteric sclerae ENMT: external ear and nose normal, oropharynx normal Respiratory: + cough; no respiratory distress, no labored breathing, no retractions and does not use accessory muscles Auscultation: + diminished lung sounds and + rhonchi (in RUL ); no wheezes Cardiovascular: Rate/Rhythm: regular rate and regular rhythm Psychiatric: A+Ox3, euthymic affect Results & Data Results & Data ([facility]) Vital Signs (Past 12 Hours) Vital Signs Temp Pulse Pulse Resp BP Pulse Ox 03/18/22 03:37 36.7 C 76 20 92/50 L 99 03/18/22 03:04 91 H 26 H 92 03/18/22 00:13 100 H 22 98 03/18/22 00:00 36.6 C 91 H 24 115/57 L 99 03/17/22 22:27 91 H 19 95 03/17/22 22:17 84 03/17/22 20:04 36.4 C L 84 24 108/55 L 91 03/17/22 19:14 91 H 18 90 03/17/22 19:13 91 H 18 90 Resident Activity Tracking Resident Involvement: Resident Care Provided Care Provided: Adult Hospital Medicine (1) Pneumonia Laterality: right Lung location: unspecified part of lung Pneumonia type: due to unspecified organism Qualified Code(s): J18.9 - Pneumonia, unspecified organism
[2022-03-18 07:12] LABS: BUN Creatinine Ratio 59.6 (10-20); Calcium 9.5 mg/dl (8.5-10.1); Creatinine Clr Calc Pharmacy 199.9 ml/min; Est GFR (African American) 131.5 ml/min; Est GFR (Non-African American) 113.4 ml/min; Potassium 3.4 mmol/L (3.5-5.1)
[2022-03-18] MEDS: INSULIN ASPART PER UNIT SC SCH ×4 (07:29→20:55)
[2022-03-18 07:34] LABS: Hematocrit (blood only) 30.8 % (42-52); Hemoglobin 8.4 g/dL (14.0-18.0); Mean Corpuscular Hemoglobin 26.8 pg (25-34); Mean Corpuscular Hgb Conc 27.3 g/dL (32-36); Mean Corpuscular Volume 98.4 fL (80-100); Mean Platelet Volume 12.4 fL (7.4-10.4); Platelet Count 223 K/uL (130-400); RDW Coefficient of Variation 16.8 % (11.5-14.5); RDW Standard Deviation 59.9 fL (36.4-46.3); Red Blood Count 3.13 M/uL (4.7-6.1); White Blood Count 10.59 K/uL (4.8-10.8)
[2022-03-18] MEDS ORDERED: MAGNESIUM SULFATE / D5W 1 GM/100 ML BAG IV SCH (07:45)
[2022-03-18] MEDS ORDERED: LACTATED RINGER'S 1,000 ML IV SCH ×2 (07:45)
[2022-03-18 08:42] LABS: Eosinophils # (auto) 0.01 K/uL (0-0.5); Eosinophils % (auto) 0.1 %; Immature Granulocytes # (auto) 0.04 K/uL (0.00-0.02); Immature Granulocytes % (auto) 0.4 %; Lymphocytes # (auto) 0.92 K/uL (1.2-3.4); Lymphocytes % (auto) 8.7 %; Monocytes # (auto) 0.56 K/uL (0.11-0.59); Monocytes % (auto) 5.3 %; Neutrophils # (auto) 9.06 K/uL (1.4-6.5); Neutrophils % (auto) 85.5 %
[2022-03-18] MEDS: AZITHROMYCIN 500 MG in DEXTROSE 5% 250 ML IV SCH (08:51)
[2022-03-18] MEDS: POTASSIUM CHLORIDE CRTAB 20 MEQ TABCR PO SCH ×3 (09:08→17:04)
[2022-03-18] MEDS: ASPIRIN 81 MG CHEW PO SCH (09:10)
[2022-03-18] MEDS: DIVALPROEX DELAY RELEASE 250 MG TABEC PO SCH ×2 (09:11→20:41)
[2022-03-18] MEDS: DICLOFENAC SOD 1% GEL 100 GM TUBE EXT SCH ×3 (09:11→20:42)
[2022-03-18] MEDS: FUROSEMIDE 40 MG/4 ML VIAL IV SCH (09:12)
[2022-03-18] MEDS: ENOXAPARIN INJ 40 MG/0.4 ML SYR SQ SCH ×2 (09:12→20:44)
[2022-03-18] MEDS: METOPROLOL TARTRATE 25 MG TAB PO SCH ×2 (09:13→20:55)
[2022-03-18] MEDS: INSULIN GLARGINE SOLOSTAR 100 UNITS/ML 3 ML PEN SC SCH (09:13)
[2022-03-18] MEDS: SERTRALINE HCL 50 MG TABLET PO SCH (09:16)
[2022-03-18] MEDS: QUEtiapine FUMARATE 25 MG TABLET PO SCH ×2 (09:16→20:42)
[2022-03-18] MEDS: TERAZOSIN HCL 1 MG CAP PO SCH (09:17)
--- NOTE | 2022-03-18 10:47 | XRay Report ---
XR knee LT 3V CLINICAL HISTORY: L lateral knee pain, fall TECHNIQUE: 3 views of the left knee were obtained. Comparison: Comparison is made to knee radiographs 01/26/2022 FINDINGS: There is no evidence of an acute fracture. Degenerative changes are seen in the knee joint. No joint effusion is seen. No soft tissue abnormality is seen. IMPRESSION: Degenerative changes without evidence of acute injury. ACT 112: Negative or not required by law. Electronically signed by: Jose Luis Causey M.D. 03/18/2022 10:46 AM
--- NOTE | 2022-03-18 15:13 | Billing Data ---
Date of Service March 18, 2022 Coding Level of Care Code 68202 Subseq Hosp Care Lvl 3
[2022-03-18] MEDS: ATORVASTATIN 40 MG TAB PO SCH (20:41)
[2022-03-19] MEDS: ALBUT/IPRATROP 3MG/0.5MG NEB 3 ML VIAL NEB SCH ×4 (00:18→19:35)
[2022-03-19] MEDS: AMPICILLIN/SULBACTAM SOD 1,500 MG in 0.9 % SODIUM CHLORIDE 100 ML IV SCH ×4 (02:43→21:03)
[2022-03-19 06:08] LABS: Basophils # (auto) 0.02 K/uL (0-0.2); Basophils % (auto) 0.3 %; Eosinophils # (auto) 0.04 K/uL (0-0.5); Eosinophils % (auto) 0.6 %; Hematocrit (blood only) 30.5 % (42-52); Hemoglobin 9.1 g/dL (14.0-18.0); Immature Granulocytes # (auto) 0.01 K/uL (0.00-0.02); Immature Granulocytes % (auto) 0.1 %; Lymphocytes # (auto) 1.72 K/uL (1.2-3.4); Mean Corpuscular Hemoglobin 28.9 pg (25-34); Mean Corpuscular Hgb Conc 29.8 g/dL (32-36); Mean Corpuscular Volume 96.8 fL (80-100); Mean Platelet Volume 11.4 fL (7.4-10.4); Monocytes % (auto) 9.8 %; Neutrophils # (auto) 4.67 K/uL (1.4-6.5); Neutrophils % (auto) 65.2 %; Platelet Count 208 K/uL (130-400); RDW Coefficient of Variation 17.1 % (11.5-14.5); RDW Standard Deviation 61.1 fL (36.4-46.3); Red Blood Count 3.15 M/uL (4.7-6.1); White Blood Count 7.16 K/uL (4.8-10.8)
[2022-03-19 06:25] LABS: Calcium 9.3 mg/dl (8.5-10.1); Est GFR (African American) 128.2 ml/min; Est GFR (Non-African American) 110.6 ml/min; Potassium 3.5 mmol/L (3.5-5.1)
--- NOTE | 2022-03-19 07:07 | Hospitalist Progress Note ---
Date of Service March 19, 2022 Assessment & Plan (1) Acute on chronic respiratory failure with hypoxia and hypercapnia: Plan: Mr. Harvey is a 71 yo gentleman with a PMHx of chronic respiratory failure with hypoxia and hypercapnia due to underlying COPD, AMBERLY and OHS, brought in for acute dyspnea and malaise. Acute on Chronic Respiratory Failure with Hypoxia and Hypercapnia secondary to Aspiration PNA - blood gas on admission pH 7.27, bicarb 39, PCO2 81. Similar to previous admissions - CXR showing evidence of multifocal PNA + pulmonary vascular congestion - etiology likely multifactorial due to pulmonary congestion, PNA and subsequent COPD exacerbation - baseline O2 requirement of 7L via NC during the day, BiPAP at night. - Provide additional O2 and ventilatory support with goal O2 sat 88-92% - Continue Unasyn and Azithromycin - Home O2 requirements 7L NC, currently on 30L High Flow Anemia -Hgb ~10 baseline -Drop overnight to Hgb 8.4 -- stable this morning and improved at 9.1 -FOBT ordered -Continue to monitor for any signs of bleeding L Knee pain -Secondary to fall per patient during admission -Pain notable on lateral L knee, no obvious deformity -Knee XR negative for acute fracture or dislocation -Voltaren gel PRN for pain Chronic Aspiration -Precautions for upright seating in addition to mouth care ACHS -No oral intake if SOB or any notable signs/symptoms of respiratory failure Sepsis - SIRS met on admission - source: aspiration PNA noted on CXR - UA contaminated. Urine culture pending - blood cultures pending - respiratory biofire negative - no evidence of cellulitis or diarrhea - WBC 19 with neutrophil predom. Trend CBC - proc not elevated - Lactate not elevated, favorable prognostic indicator - Zosyn deescalated to Unasyn (anaerobic coverage). Vancomycin d/bree as nasal MRSA swab negative. Azithromycin added for concurrent COPD exacerbation COPD - likely in exacerbation due to PNA - Azithromycin 500mg IV for 3 days - Has not required steroids as of yet, continue to monitor for any worsening of status - continue home anoro inhaler - DuoNebs every 6 hours scheduled and every 2 hours as needed for shortness of breath/wheezing. AMBERLY -chronic - on BiPAP qhs Pulmonary Vascular Congestion -Echo noticeable for EF 60-65% with normal left ventricular size and systolic function -Home lasix regiment 20mg PO QD -- increased to 20mg IV QD Anxiety/Depression - Continue Seroquel and sertraline HLD - Continue atorvastatin 40mg daily. HTN - continue home dose metoprolol (with low threshold to place on hold if he becomes hypotensive) DM2 - Basal/bolus insulin while admitted. - DM2 diet - on high intensity statin + ASA Seizure Disorder - Continue divalproex 250mg BID Decubitus Ulcer - stage II pressure ulcer noted on exam - wound nurse consulted Code Status: FULL CODE FEN: DM2, low sodium DVT ppx: Lovenox BID Dispo: Telemetry -- PT/OT ordered (2) Sepsis: (3) Pneumonia: (4) COPD (chronic obstructive pulmonary disease): (5) AMBERLY (obstructive sleep apnea): (6) CHF (congestive heart failure): (7) Anxiety and depression: (8) HLD (hyperlipidemia): (9) HTN (hypertension): (10) Diabetes: (11) Seizure disorder: (12) Decubitus ulcer: Admission and Anticipated Discharge Date Admission Date: March 16, 2022 Supervising Physician Co-Signing Physician Notes I personally examined the patient and verified all goldstein points of history and exam, discussed case, and agree with decision making with Dr Madsen A bit groggy when I see him, but no acute complaints. In discussion with Dr. Madsen he was more awake when evaluated by him. Patient himself denies any complaints or respiratory distress, MINE ENVIRONMENTAL ENGINEER at the bedside whenever I am thereabout to administer nebulizerdoes not note any problems the patient is showing either. Vitals noted, in general he is awake and alert not really able to answer orientation questions, but appears in no distress. HEENT normocephalic atraumatic mucous membranes moist. breathing/lungs overall quiet but clear no rales rhonchi or wheezes good effort no accessory muscle use Aspiration pneumonia with COPD/hypoventilation exacerbationantibiotics, supportive care, appears to be improving overall. likely return to SNF once required FiO2 is lower/more manageable in that settingRT weaning successfully. With hypoventilationdefinitely needs BiPAP anytime he is asleep. Repeat VBG in a.m. Subjective Patient evaluated at the bedside this morning. Noting he has good appetite. Only feels "okay today." He denies any SOB on high flow oxygen. Otherwise denies fever, chills, SOB, chest pain, abdominal pain. Review of Systems Review of Systems: All systems reviewed & are unremarkable except as noted in Subjective Physical Exam Constitutional: + morbidly obese and cooperative; no acute distress, not combative, not diaphoretic and not lethargic Eyes: PERRL, conjunctivae normal, anicteric sclerae ENMT: external ear and nose normal, oropharynx normal Respiratory: + cough; no respiratory distress, no labored breathing, no retractions and does not use accessory muscles Auscultation: + diminished lung sounds; no wheezes Cardiovascular: Rate/Rhythm: regular rate and regular rhythm Psychiatric: A+Ox3, euthymic affect Results & Data Results & Data ([facility]) Vital Signs (Past 12 Hours) Vital Signs Temp Pulse Pulse Resp BP Pulse Ox 03/19/22 04:38 36.9 C 75 24 126/71 100 03/19/22 02:39 75 16 97 03/19/22 00:18 82 21 95 03/19/22 00:14 36.7 C 78 24 114/57 L 96 03/18/22 22:38 67 18 99 03/18/22 22:18 74 03/18/22 19:45 37.4 C 76 24 97/50 L 94 03/18/22 19:30 83 20 95 Resident Activity Tracking Resident Involvement: Resident Care Provided Care Provided: Adult Hospital Medicine (1) Pneumonia Laterality: right Lung location: unspecified part of lung Pneumonia type: due to unspecified organism Qualified Code(s): J18.9 - Pneumonia, unspecified organism
[2022-03-19] MEDS: INSULIN ASPART PER UNIT SC SCH ×4 (08:14→22:58)
[2022-03-19] MEDS: AZITHROMYCIN 500 MG in DEXTROSE 5% 250 ML IV SCH (08:16)
[2022-03-19] MEDS: POTASSIUM CHLORIDE CRTAB 20 MEQ TABCR PO SCH ×3 (08:22→16:57)
[2022-03-19] MEDS: ASPIRIN 81 MG CHEW PO SCH (08:23)
[2022-03-19] MEDS: DICLOFENAC SOD 1% GEL 100 GM TUBE EXT SCH ×3 (08:24→21:06)
[2022-03-19] MEDS: DIVALPROEX DELAY RELEASE 250 MG TABEC PO SCH ×2 (08:24→21:05)
[2022-03-19] MEDS: FUROSEMIDE 40 MG/4 ML VIAL IV SCH (08:25)
[2022-03-19] MEDS: ENOXAPARIN INJ 40 MG/0.4 ML SYR SQ SCH ×2 (08:25→21:03)
[2022-03-19] MEDS: METOPROLOL TARTRATE 25 MG TAB PO SCH ×2 (08:28→21:04)
[2022-03-19] MEDS: INSULIN GLARGINE SOLOSTAR 100 UNITS/ML 3 ML PEN SC SCH (08:28)
[2022-03-19] MEDS: QUEtiapine FUMARATE 25 MG TABLET PO SCH ×2 (08:29→21:04)
[2022-03-19] MEDS: SERTRALINE HCL 50 MG TABLET PO SCH (08:32)
[2022-03-19] MEDS: TERAZOSIN HCL 1 MG CAP PO SCH (08:32)
--- NOTE | 2022-03-19 15:37 | Billing Data ---
Date of Service March 19, 2022 Coding Level of Care Code 22886 Subseq Hosp Care Lvl 3
[2022-03-19] MEDS: ATORVASTATIN 40 MG TAB PO SCH (21:05)
[2022-03-20] MEDS: ALBUT/IPRATROP 3MG/0.5MG NEB 3 ML VIAL NEB SCH ×5 (00:15→22:49)
[2022-03-20] MEDS: AMPICILLIN/SULBACTAM SOD 1,500 MG in 0.9 % SODIUM CHLORIDE 100 ML IV SCH ×2 (01:00→10:49)
--- NOTE | 2022-03-20 05:52 | Hospitalist Progress Note ---
Date of Service March 20, 2022 Assessment & Plan (1) Acute on chronic respiratory failure with hypoxia and hypercapnia: Plan: Mr. Harvey is a 71 yo gentleman with a PMHx of chronic respiratory failure with hypoxia and hypercapnia (baseline O2 7L NC during day / BiPAP qHS) due to underlying COPD, AMBERLY and OHS, and chronic aspiration/dysphagia who was brought in for acute dyspnea and malaise, subsequently found to have [id number] respiratory failure thought to be secondary to aspiration PNA and COPD exacerbation. Acute on Chronic Respiratory Failure with Hypoxia and Hypercapnia secondary to Aspiration PNA, COPD Exacerbation - blood gas on admission pH 7.27, bicarb 39, PCO2 81. Similar to previous admissions - CXR showing evidence of multifocal PNA + pulmonary vascular congestion - etiology likely multifactorial due to pulmonary congestion, aspiration PNA and subsequent COPD exacerbation - baseline O2 requirement of 7L via NC during the day, BiPAP at night - Improving. VBG demonstrating downtrending pCO2 with normalization of pH. Back on NC 7L as of 03/20 AM - Transition Unasyn --> Augmentin now that tolerating PO well - s/p azithromycin during course - goal O2 sat 88-92% Chronic Normocytic Anemia -Hgb ~10 baseline -- consistent between ~9-10 throughout admission -FOBT Negative L Knee pain -Secondary to fall per patient during admission -Pain notable on lateral L knee, no obvious deformity -Knee XR negative for acute fracture or dislocation -Voltaren gel PRN for pain Chronic Aspiration -PRE SALES TECHNICAL ENGINEER consulted while here: -Precautions for upright seating in addition to mouth care ACHS -No oral intake if SOB or any notable signs/symptoms of respiratory failure Sepsis -- resolved - SIRS met on admission - source: suspect aspiration PNA, noted on CXR - UCX - Janett, though asymptomatic - BCX - NGTD - respiratory biofire negative - no evidence of cellulitis or diarrhea - WBC 19 with neutrophil predominantly: since downtrended - proc not elevated - Lactate not elevated, favorable prognostic indicator - s/p azithromycin - Continue Augmentin, end 03/24 COPD - likely in exacerbation due to PNA - Has not required steroids as of yet, continue to monitor for any worsening of status - continue home anoro inhaler - Wee DuoNeb q6 -> q8h JENNIFER + q2h PRN - s/p azithromycin AMBERLY - chronic - on BiPAP qhs Pulmonary Vascular Congestion -Echo noticeable for EF 60-65% with normal left ventricular size and systolic function -Resume home Lasix 20mg PO daily (from 20mg IV daily) beginning 03/21 Anxiety/Depression - Continue Seroquel and sertraline HLD - Continue atorvastatin 40mg daily. HTN - continue home dose metoprolol DM2 - Basal/bolus insulin while admitted. - DM2 diet - on high intensity statin + ASA Seizure Disorder - Continue divalproex 250mg BID Decubitus Ulcer - stage II pressure ulcer noted on exam - wound nurse consulted Code Status: FULL CODE FEN: DM2, low sodium DVT ppx: Lovenox BID Dispo: Transfer to [place] from [facility]U. Likely stable for D/C on 03/21 if continuing to demonstrate stability. PT, OT ordered. (2) Sepsis: (3) Pneumonia: (4) COPD (chronic obstructive pulmonary disease): (5) AMBERLY (obstructive sleep apnea): (6) CHF (congestive heart failure): (7) Anxiety and depression: (8) HLD (hyperlipidemia): (9) HTN (hypertension): (10) Diabetes: (11) Seizure disorder: (12) Decubitus ulcer: Admission and Anticipated Discharge Date Admission Date: March 16, 2022 Supervising Physician Co-Signing Physician Notes I personally examined the patient and verified all goldstein points of history and exam, discussed the case, and agree with decision making with Dr Leonardo. Exam 120/66, 70, 18, 36.9, 96% on nasal cannula 5 L/min No complaints. Lungs with fine bibasilar crackles, otherwise clear without wheezing. Heart regular rate and rhythm. Abdomen soft and nontender Data Hemoglobin 8.3, platelet count 230 Sodium 142, Potassium 3.9, BUN 20, creatinine 0.51 VBG as noted, improved Acute on chronic respiratory failure with hypoxia, hypercapnia secondary to aspiration pneumonia COPD exacerbation Chronic anemia, Normocytic, suspect secondary to chronic diseases Chronic aspiration Sepsis, resolved Transfer to medicine floor Changed to p.o. Augmentin Pull Valerio catheter Consider transfer back to [facility] tomorrow Subjective Doing ok this morning. O2 requirement coming down - now on OxyMask. Breathing feels ok. Energy is good. Eager to get out of the hospital once safe. Denies pain or chest discomfort. No belly pain. No n/v/d. Review of Systems Review of Systems: as per HPI Physical Exam Physical Exam: General: 71-year old male who is alert, oriented. NAD. HFNC in place. HEENT: NCAT. - Eyes - Sclera are white, anicteric, and without injection. - Mouth - MMM - Neck - supple, no appreciable JVD Cardiac: Normal rate and regular rhythm; S1 and S2 present with no murmurs, rubs, or gallops. Pulmonary: Mildly respiratory effort with symmetric expansion of the chest. No use of accessory muscles. Lungs with bibasilar crackles, otherwise CTAB w/o crackles or wheezes. Abdominal: Normoactive bowel sounds. Abdomen was soft, nondistended, and non- tender to palpation. Extremities: Upper and lower extremities are warm and well perfused. No peripheral edema in the lower extremities bilaterally Results & Data Results & Data ([facility]) Vital Signs (Past 12 Hours) Vital Signs Temp Pulse Pulse Resp BP BP Pulse Ox 03/20/22 03:55 37 C 68 24 126/65 92 03/20/22 02:40 67 25 H 93 03/20/22 00:15 77 18 98 03/19/22 23:19 37.2 C 71 24 117/57 L 91 03/19/22 22:54 74 18 99 03/19/22 22:18 79 03/19/22 19:36 73 20 91 03/19/22 19:15 36.8 C 75 22 108/50 L 92 03/19/22 18:00 Pulse Ox 03/20/22 03:55 03/20/22 02:40 03/20/22 00:15 03/19/22 23:19 03/19/22 22:54 03/19/22 22:18 03/19/22 19:36 03/19/22 19:15 03/19/22 18:00 94 Resident Activity Tracking Resident Involvement: Resident Care Provided Care Provided: Adult Hospital Medicine (1) Pneumonia Laterality: right Lung location: unspecified part of lung Pneumonia type: due to unspecified organism Qualified Code(s): J18.9 - Pneumonia, unspecified organism
[2022-03-20 06:43] LABS: Base Excess VBG 11.9 mEq/L; pH VBG 7.36 (7.36-7.41)
[2022-03-20 06:49] LABS: Basophils # (auto) 0.01 K/uL (0-0.2); Basophils % (auto) 0.2 %; Eosinophils # (auto) 0.11 K/uL (0-0.5); Hematocrit (blood only) 29.6 % (42-52); Hemoglobin 8.3 g/dL (14.0-18.0); Immature Granulocytes # (auto) 0.02 K/uL (0.00-0.02); Immature Granulocytes % (auto) 0.4 %; Lymphocytes # (auto) 1.28 K/uL (1.2-3.4); Lymphocytes % (auto) 23.7 %; Mean Corpuscular Hemoglobin 26.7 pg (25-34); Mean Corpuscular Volume 95.2 fL (80-100); Monocytes # (auto) 0.58 K/uL (0.11-0.59); Monocytes % (auto) 10.7 %; Neutrophils # (auto) 3.41 K/uL (1.4-6.5); Platelet Count 230 K/uL (130-400); RDW Coefficient of Variation 16.8 % (11.5-14.5); RDW Standard Deviation 58.7 fL (36.4-46.3); Red Blood Count 3.11 M/uL (4.7-6.1); White Blood Count 5.41 K/uL (4.8-10.8)
[2022-03-20 06:59] LABS: BUN Creatinine Ratio 39.2 (10-20); Calcium 9.2 mg/dl (8.5-10.1); Est GFR (African American) 127.1 ml/min; Est GFR (Non-African American) 109.7 ml/min; Potassium 3.9 mmol/L (3.5-5.1)
[2022-03-20] MEDS: INSULIN ASPART PER UNIT SC SCH ×4 (08:48→20:27)
[2022-03-20] MEDS: ENOXAPARIN INJ 40 MG/0.4 ML SYR SQ SCH ×2 (08:54→20:26)
[2022-03-20] MEDS: INSULIN GLARGINE SOLOSTAR 100 UNITS/ML 3 ML PEN SC SCH (08:54)
[2022-03-20] MEDS: QUEtiapine FUMARATE 25 MG TABLET PO SCH ×2 (08:55→20:24)
[2022-03-20] MEDS: SERTRALINE HCL 50 MG TABLET PO SCH (08:55)
[2022-03-20] MEDS: FUROSEMIDE 40 MG/4 ML VIAL IV SCH (08:55)
[2022-03-20] MEDS: ASPIRIN 81 MG CHEW PO SCH (08:55)
[2022-03-20] MEDS: DIVALPROEX DELAY RELEASE 250 MG TABEC PO SCH ×2 (08:56→20:24)
[2022-03-20] MEDS: DICLOFENAC SOD 1% GEL 100 GM TUBE EXT SCH ×3 (08:56→20:26)
[2022-03-20] MEDS: TERAZOSIN HCL 1 MG CAP PO SCH (08:56)
[2022-03-20] MEDS: METOPROLOL TARTRATE 25 MG TAB PO SCH ×2 (08:56→20:25)
[2022-03-20] MEDS: POTASSIUM CHLORIDE CRTAB 20 MEQ TABCR PO SCH ×3 (08:56→17:47)
[2022-03-20] MEDS: AMOXICILLIN/CLAVULANATE 875 MG TAB PO SCH ×2 (10:16→17:47)
[2022-03-20] MEDS: ATORVASTATIN 40 MG TAB PO SCH (20:24)
--- NOTE | 2022-03-21 06:36 | Discharge Summary ---
Date of Service March 21, 2022 Admission HPI Per Admitting Provider 71-year-old male past medical history significant for chronic hypoxic hypercapnic respiratory failure (on 7 LNC during the day with BiPAP at night), AMBERLY/obesity hypoventilation syndrome, CHF, anxiety and depression, hypertension, DM2 presented to the ER from her side for several days of malaise and fevers with worsening of shortness of breath. BiPAP was attempted prior to arrival but patient was not tolerating at that time and was therefore placed on a nonrebreather with improvement in his respiratory status. ABG with pH 7.27/PCO2 81/PO2 91/HCO3 37. CXR and lung exam suggestive of multifactorial elements of RLL aspiration pneumonia and pulmonary vascular congestion. Blood cultures were collected and patient was placed on Zosyn for aspiration pneumonia. Patient was also given dexamethasone 10 mg IV x1. Hospitalist service was consulted for admission for respiratory failure and sepsis. Admission Exam Per Admitting Provider Constitutional: WD/WN, vitals as above Eyes: PERRL, conjunctivae normal, anicteric sclerae ENMT: external ear and nose normal, oropharynx normal Neck: normal visual inspection Respiratory: Poor respiratory effort, crackles throughout lungs with decreased breath sounds in right lower lung field Cardiovascular: Regular rhythm, tachycardic, no murmurs Pitting edema 2+ up to directly above the knees bilaterally B Gastrointestinal (Abdomen): normal bowel sounds, soft, nontender, no hepatosplenomegaly Musculoskeletal: no cyanosis or clubbing, extremities motor strength 5/5 Skin: Patient's skin warm and sweaty Medial buttock with stage II pressure ulcer Neurologic: Normal speech. Bilateral upper and lower extremities, face without focal deficits. Psychiatric: A+Ox3, euthymic affect Principal Diagnosis [id number] hypoxic/hypercapnic respiratory failure aspiration PNA COPD exacerbation Discharge Exam General: 71-year old male who is alert, oriented. NAD. HFNC in place. HEENT: NCAT. - Eyes - Sclera are white, anicteric, and without injection. - Mouth - MMM - Neck - supple, no appreciable JVD Cardiac: Normal rate and regular rhythm; S1 and S2 present with no murmurs, rubs, or gallops. Pulmonary: Mildly respiratory effort with symmetric expansion of the chest. No use of accessory muscles. Lungs with bibasilar crackles, otherwise CTAB w/o crackles or wheezes. Abdominal: Normoactive bowel sounds. Abdomen was soft, nondistended, and non- tender to palpation. Extremities: Upper and lower extremities are warm and well perfused. No peripheral edema in the lower extremities bilaterally Discharge Data Allergies Allergy/AdvReac Type Severity Reaction Status Date / Time ketorolac [From Toradol] Allergy Unknown Unknown Verified 03/16/22 20:26 Consultations 03/16/22 19:32 ED Decision to Admit Stat Hospital Course (1) Acute on chronic respiratory failure with hypoxia and hypercapnia: Mr. Harvey is a 71 yo gentleman with a PMHx of chronic respiratory failure with hypoxia and hypercapnia (baseline O2 7L NC during day / BiPAP qHS) due to underlying COPD, AMBERLY and OHS, and chronic aspiration/dysphagia who was brought in for acute dyspnea and malaise, subsequently found to have [id number] respiratory failure thought to be secondary to aspiration PNA and COPD exacerbation. Acute on Chronic Respiratory Failure with Hypoxia and Hypercapnia secondary to Aspiration PNA, COPD Exacerbation - blood gas on admission pH 7.27, bicarb 39, PCO2 81. Similar to previous admissions - CXR showing evidence of multifocal PNA + pulmonary vascular congestion - etiology likely multifactorial due to pulmonary congestion, aspiration PNA and subsequent COPD exacerbation - baseline O2 requirement of 7L via NC during the day, BiPAP at night - Back to baseline O2 requirement prior to discharge - Was on Unasyn while here, complete Augmentin course 03/24 - s/p azithromycin during course - goal O2 sat 88-92% Chronic Normocytic Anemia -Hgb ~10 baseline -- consistent between ~8-10 throughout admission -Noted since prior to 2020 - suspect secondary to chronic disease, MCV normal -FOBT Negative L Knee pain -Secondary to fall per patient during admission -Pain notable on lateral L knee, no obvious deformity -Knee XR negative for acute fracture or dislocation -Voltaren gel PRN for pain Chronic Aspiration -PRODUCTION ASSEMBLY SUPERVISOR consulted while here, during multiple previous admission: -Precautions for upright seating in addition to mouth care ACHS -No oral intake if SOB or any notable signs/symptoms of respiratory failure Sepsis -- resolved - SIRS met on admission - source: suspect aspiration PNA, noted on CXR - UCX - Janett, though asymptomatic - BCX - NGTD - respiratory biofire negative - no evidence of cellulitis or diarrhea - WBC 19 with neutrophil predominantly: since downtrended - s/p azithromycin - Continue Augmentin, end 03/24 COPD - likely in exacerbation due to PNA - Has not required steroids as of yet, continue to monitor for any worsening of status - continue home anoro inhaler - Wee DuoNeb q6 -> q8h JENNIFER + q2h PRN - s/p azithromycin AMBERLY - chronic - on BiPAP qhs Pulmonary Vascular Congestion -Echo noticeable for EF 60-65% with normal left ventricular size and systolic function -Resumed home Lasix 20mg daily prior to discharge Anxiety/Depression - Continue Seroquel and sertraline HLD - Continue atorvastatin 40mg daily. HTN - continue home dose metoprolol DM2 - Basal/bolus insulin while admitted - on high intensity statin + ASA Seizure Disorder - Continue divalproex 250mg BID Decubitus Ulcer - stage II pressure ulcer noted on exam - wound nurse consulted Code Status: FULL CODE (2) Sepsis: (3) Pneumonia: (4) COPD (chronic obstructive pulmonary disease): (5) AMBERLY (obstructive sleep apnea): (6) CHF (congestive heart failure): (7) Anxiety and depression: (8) HLD (hyperlipidemia): (9) HTN (hypertension): (10) Diabetes: (11) Seizure disorder: (12) Decubitus ulcer: Total Time Total Time Spent Total Time Spent (In Minutes): 30 Discharge Plan Discharge Items Patient Disposition: Home - Home Health Services Reason For Visit: RESPIRATORY FAILURE, ASPIRATION PNEUMONIA, SEPSIS Discharge Diagnosis: acute on chronic hypoxic/hypercapnic respiratory failure aspiration pneumonia COPD exacerbation Activity: Per Instructions section Non-emergency contact: Primary Care Provider Call non-emergency contact if: you have any medication questions, your symptoms worsen and your temperature is above 101 Follow-up/Referrals: [facility], [Primary Care Provider] - Diet: Carb Consistent or DM2 Addtl Attending Provider Instructions: You were seen in [facility] for evaluation of shortness of nick ath. Upon arrival here, you underwent several tests to determine the cause of the shortness of breath. You are found to have evidence of pneumonia, likely from secretions from your upper throat that then become infected in the lungs. You were treated with antibiotics and oxygen therapy. Thankfully, you demonstrated excellent response to these, alongside nebulizer treatments. Prior to your discharge, you demonstrated stability at your home oxygen level of 7 L. Please note the following medication additions/deletions/changes: Continue Augmentin 284190, twice daily, until 03/24 end of day Please follow-up with your primary care physician within 1 week to review this visit. In the interim, it is critical that you continue wearing your BiPAP at night, alongside your nasal cannula during the day for oxygen therapy. If you experience any worsening shortness of breath, chest pain, palpitations, fever, chills, nausea, vomiting, or other worrisome symptoms, please seek medical evaluation; if your symptoms are severe, please report to the emergency room immediately for evaluation Is a pleasure for caring for you while you are here, we wish you all the best in your recovery. Pending Studies at Discharge: No Stand-Alone Forms: My [facility], Smoking Cessation Medications and DC Order Prescriptions: New amoxicillin-pot clavulanate 875-125 mg tablet 1 tab PO BID Qty: 8 RF: 0 Continued ipratropium-albuterol 0.5 mg-3 mg(2.5 mg base)/3 mL Solution For Nebulization 3 ml INHALATION Q6H RF: 0 terazosin 2 mg capsule 2 mg PO QAM RF: 0 diclofenac sodium [Voltaren Arthritis Pain] 1 % gel 4 g EXT TID RF: 0 atorvastatin 40 mg Tablet 40 mg PO HS RF: 0 divalproex 250 mg Tablet,Delayed Release (Dr/Ec) 250 mg PO BID RF: 0 aspirin 81 mg Tablet,Chewable 81 mg PO QAM RF: 0 cholecalciferol (vitamin D3) 25 mcg (1,000 unit) Tablet 25 mcg PO QAM RF: 0 acetazolamide 500 mg Capsule, Extended Release 500 mg PO QAM RF: 0 Lactobacillus acidophilus Capsule 0 mmu cells PO QAM Qty: 0 RF: 0 quetiapine [Seroquel] 50 mg Tablet 50 mg PO BID RF: 0 pediatric multivitamin Tablet,Chewable 1 tab PO QAM RF: 0 potassium chloride 20 mEq Tablet Extended Release 20 meq PO TIDM RF: 0 metoprolol tartrate 25 mg Tablet 12.5 mg PO BID RF: 0 acetaminophen 325 mg Tablet 650 mg PO Q4 MDD 3g PRN (Reason: Fever Or Pain) RF: 0 Humulin R Regular U-100 Insuln 100 unit/mL Solution 1 sliding scale dose SUBCUT ACHS RF: 0 furosemide 20 mg Tablet 20 mg PO QAM Qty: 30 RF: 0 sertraline 50 mg Tablet 50 mg PO QAM Qty: 30 RF: 0 Discharge Orders: Discharge Order (Routine); Ordered 03/21/22 Ordered By: Harshal Leonardo Admission Data Admit Date/Time: 03/16/22 20:05 Attending Provider: Harish Ibarra Admit Provider: Salvador Cardoso [facility] Other Providers: Harshal Cyr ; Salvador Cardoso Other Interventions: Discharge Summary Assessment (RN) Last Done: 03/21/22 14:16 Supervising Physician Co-Signing Physician Notes Attending attestation Pt seen and examined in concert with Dr. Leonardo. In agreement with the documented findings as noted in the resident documentation with any exceptions or additions as noted here. Resting in bed, respiratory status at baseline. On examination, S1/S2 nl RRR no MCG. Bibasilar crackles. Abd NT/ND BS+ve Acute on chronic hypoxic respiratory failure w/ hypercapnea - tolerating baseline O2 requirement COPD w/ exacerbation in the setting of recurrent aspiration PNA - completed course of azithromycin, complete augmentin as noted Else see resident documentation as noted. Total attending time spent with this patient's care on the day of discharge: 40 minutes. Resident Activity Tracking Resident Involvement: Resident Care Provided Care Provided: Adult Hospital Medicine
[2022-03-21 07:00] LABS: Basophils # (auto) 0.01 K/uL (0-0.2); Basophils % (auto) 0.2 %; Eosinophils # (auto) 0.22 K/uL (0-0.5); Eosinophils % (auto) 3.4 %; Hematocrit (blood only) 32.1 % (42-52); Hemoglobin 9.3 g/dL (14.0-18.0); Immature Granulocytes # (auto) 0.03 K/uL (0.00-0.02); Immature Granulocytes % (auto) 0.5 %; Lymphocytes # (auto) 1.12 K/uL (1.2-3.4); Lymphocytes % (auto) 17.6 %; Mean Corpuscular Hemoglobin 27.9 pg (25-34); Mean Corpuscular Volume 96.4 fL (80-100); Mean Platelet Volume 10.8 fL (7.4-10.4); Monocytes # (auto) 0.39 K/uL (0.11-0.59); Monocytes % (auto) 6.1 %; Neutrophils # (auto) 4.61 K/uL (1.4-6.5); Neutrophils % (auto) 72.2 %; Platelet Count 228 K/uL (130-400); RDW Coefficient of Variation 16.8 % (11.5-14.5); RDW Standard Deviation 59.4 fL (36.4-46.3); Red Blood Count 3.33 M/uL (4.7-6.1); White Blood Count 6.38 K/uL (4.8-10.8)
[2022-03-21] MEDS ORDERED: ALBUT/IPRATROP 3MG/0.5MG NEB 3 ML VIAL NEB SCH (07:00)
[2022-03-21] MEDS: QUEtiapine FUMARATE 25 MG TABLET PO SCH (07:51)
[2022-03-21] MEDS: METOPROLOL TARTRATE 25 MG TAB PO SCH (07:51)
[2022-03-21] MEDS: TERAZOSIN HCL 1 MG CAP PO SCH (07:52)
[2022-03-21] MEDS: POTASSIUM CHLORIDE CRTAB 20 MEQ TABCR PO SCH ×2 (07:52→11:12)
[2022-03-21] MEDS: AMOXICILLIN/CLAVULANATE 875 MG TAB PO SCH (07:52)
[2022-03-21] MEDS: SERTRALINE HCL 50 MG TABLET PO SCH (07:52)
[2022-03-21] MEDS: DIVALPROEX DELAY RELEASE 250 MG TABEC PO SCH (07:52)
[2022-03-21] MEDS: ASPIRIN 81 MG CHEW PO SCH (07:53)
[2022-03-21] MEDS: DICLOFENAC SOD 1% GEL 100 GM TUBE EXT SCH ×2 (07:53→11:37)
[2022-03-21] MEDS: ENOXAPARIN INJ 40 MG/0.4 ML SYR SQ SCH (07:53)
[2022-03-21] MEDS: INSULIN GLARGINE SOLOSTAR 100 UNITS/ML 3 ML PEN SC SCH (08:04)
[2022-03-21] MEDS: INSULIN ASPART PER UNIT SC SCH ×2 (08:04→12:21)
[2022-03-21] MEDS ORDERED: FUROSEMIDE 20 MG TAB PO SCH (09:00)
== END 2022-03-21 15:05 | DRG 871 ==
LOC: ED 16:59 → SUATTDRO 20:05 → 2E 20:05 → 2N 03-20 10:25